=== PATIENT | male | born 1945 | race Caucasian/White ===

== ENCOUNTER 2018-10-29 17:35 | Inpatient (IN) | payer MEDICARE ==
--- NOTE | 2018-10-29 17:21 | US ---
EXAMINATION TYPE: US venous doppler duplex LE RT DATE OF EXAM: 10/29/2018 5:10 PM COMPARISON: NONE CLINICAL HISTORY: right leg pain and swelling. Patient fell last fall, then was in rehab facility x 3 .5 months and slid down wall 3 to 4 weeks ago while in rehab facility due to leg weakness SIDE PERFORMED: right TECHNIQUE: The lower extremity deep venous system is examined utilizing real time linear array sonog gurdeep with graded compression, Doppler sonography and color-flow sonography. VESSELS IMAGED: Common Femoral Vein Deep Femoral Vein Greater Saphenous Vein * Femoral Vein Popliteal Vein Small Saphenous Vein * Proximal Calf Veins (* superficial vessels) Right Leg: is positive for DVT in right Femoral Vein and Popliteal Vein ( non occluding here) and in DVT in 1 of 2 calf veins IMPRESSION: There is chronic deep venous thrombosis in the right leg in the femoral vein and calf vei ns.
[2018-10-29] MEDS ORDERED: HEPARIN SODIUM,PORCINE 10,000 UNIT/ML 1 ML VIAL IV ONE (18:50)
--- NOTE | 2018-10-29 19:31 | ED ---
Extremity Problem HPI - General Chief complaint: Extremity Problem,Nontraumatic Stated complaint: DVT Time Seen by Provider: 10/29/18 18:15 Source: patient Mode of arrival: wheelchair Limitations: no limitations - History of Present Illness Initial comments: 73-year-old male patient presents to the emergency department today after having a positive DVT on ultrasound as an outpatient. Patient states that he has been having swelling to the right lower extremity for the last 2 weeks. Patient denies any pain, numbness, or tingling to the leg. Patient has been in a rehab facility for the last 3 months after experiencing a fall with a cervical fracture and broken ribs. Patient states he also had a pacemaker placed and did take anti-coagulant medication for a short time in May. Patient denies any current use of antiplatelet or anticoagulant medications. Denies any discoloration to the lower extremity. Again denies any pain. States that he did have a blood clot in the right arm after an IV insertion, he states he did not have to take blood thinning medications after this episode. Patient denies any recent rash, fever, chills, shortness breath, chest pain, abdominal pain, nausea, vomiting, diarrhea, constipation, back pain, dizziness, weakness, hematuria, dysuria, urinary urgency, urinary frequency, headache, visual changes, or any other complaints. - Related Data Home Medications Medication Instructions Recorded Confirmed ALPRAZolam [Xanax] 0.25 mg PO HS 10/29/18 10/29/18 Albuterol Sulfate [Proventil Hfa] 2 puff INHALATION RT-Q6H PRN 10/29/18 10/29/18 Atorvastatin [Lipitor] 10 mg PO HS 10/29/18 10/29/18 Calcium Carbonate 500 mg PO HS 10/29/18 10/29/18 Doxazosin Mesylate [Cardura Xl] 4 mg PO DAILY 10/29/18 10/29/18 Furosemide [Lasix] 20 mg PO DAILY 10/29/18 10/29/18 Gabapentin 600 mg PO HS 10/29/18 10/29/18 HYDROcodone/APAP 10-325MG [[place] 1 tab PO QID PRN 10/29/18 10/29/18 10-325] Ibuprofen [Motrin] 600 mg PO Q8HR PRN 10/29/18 10/29/18 Insulin Glargine,Hum.rec.anlog 20 unit SQ HS 10/29/18 10/29/18 [Lantus Solostar] Lisinopril [Zestril] 10 mg PO DAILY 10/29/18 10/29/18 Melatonin 3 mg PO HS 10/29/18 10/29/18 Methocarbamol [Robaxin] 1,000 mg PO QID PRN 10/29/18 10/29/18 Metoprolol Tartrate [Lopressor] 100 mg PO BID 10/29/18 10/29/18 Multivitamins, Thera [Multivitamin 1 tab PO DAILY 10/29/18 10/29/18 (formulary)] Ranitidine HCl 150 mg PO BID 10/29/18 10/29/18 Allergies Allergy/AdvReac Type Severity Reaction Status Date / Time No Known Allergies Allergy Verified 10/29/18 19:41 Review of Systems ROS Statement: Those systems with pertinent positive or pertinent negative responses have been documented in the HPI. ROS Other: All systems not noted in ROS Statement are negative. Past Medical History Past Medical History: CVA/TIA, Diabetes Mellitus, Deep Vein Thrombosis (DVT), Hypertension, Osteoarthritis (OA) History of Any Multi-Drug Resistant Organisms: None Reported Past Surgical History: Back Surgery, Hernia Repair, Orthopedic Surgery, Pacemaker Additional Past Surgical History / Comment(s): neck surgery, hip replacement, cataract surgery Past Psychological History: No Psychological Hx Reported Smoking Status: Never smoker Past Alcohol Use History: None Reported Past Drug Use History: None Reported General Exam Limitations: no limitations General appearance: alert, in no apparent distress, other (Physical well- developed, well-nourished elderly male patient in no acute distress. Vital signs upon presentation are temperature 98.7F, pulse 71, respirations 16, blood pressure 151/76, pulse ox 98% on room air.) Eye exam: Present: normal appearance, PERRL, EOMI. Absent: scleral icterus, conjunctival injection, periorbital swelling ENT exam: Present: normal exam, normal oropharynx, mucous membranes moist Respiratory exam: Present: normal lung sounds bilaterally. Absent: respiratory distress, wheezes, rales, rhonchi, stridor Cardiovascular Exam: Present: regular rate, normal rhythm, normal heart sounds. Absent: systolic murmur, diastolic murmur, rubs, gallop, clicks GI/Abdominal exam: Present: soft, normal bowel sounds. Absent: distended, tenderness, guarding, rebound, rigid Extremities exam: Present: full ROM, normal capillary refill, other (Patient has generalized swelling to the right lower extremity. His skin is pink, warm, dry. Cap refills less than 3 seconds. Pedal pulses 2+ and equal bilaterally.) . Absent: normal inspection, tenderness, pedal edema, joint swelling, calf tenderness Neurological exam: Present: alert, oriented X3, CN II-XII intact Psychiatric exam: Present: normal affect, normal mood Skin exam: Present: warm, dry, intact, normal color. Absent: rash Course Vital Signs 10/29/18 10/29/18 10/29/18 17:45 20:00 21:58 Temperature 98.7 F 97.9 F Pulse Rate 71 73 66 Respiratory 16 18 18 Rate Blood Pressure 151/76 149/82 168/66 O2 Sat by Pulse 98 98 99 Oximetry 10/29/18 22:30 Temperature 97.8 F Pulse Rate 70 Respiratory 18 Rate Blood Pressure 165/65 O2 Sat by Pulse 96 Oximetry Medical Decision Making - Medical Decision Making 73-year-old male patient presents to emergency department after having a DVT found on ultrasound as an outpatient. Physical examination does reveal generalized right leg swelling. Patient states his swelling has a present for the last 2 weeks. He denies any pain to the leg. Did review the ultrasound report which did show DVT to the femoral vein, popliteal vein, and 1 calf vein. Given the DVT being in the proximal vein we will start heparin and admitted to the hospital for management of anticoagulant medication. Did discuss findings and results with the patient, he is agreeable to the plan. He'll be admitted to [facility] hospitalists who will cover for Dr. Landa. - Lab Data Result diagrams: 10/29/18 19:40 10/29/18 19:40 Lab Results 10/29/18 10/29/18 10/29/18 Range/Units 19:40 19:40 19:40 WBC 8.7 (3.8-10.6) k/uL RBC 3.38 L (4.30-5.90) m/uL Hgb 9.9 L (13.0-17.5) gm/dL Hct 32.7 L (39.0-53.0) % MCV 96.7 (80.0-100.0) fL MCH 29.4 (25.0-35.0) pg MCHC 30.4 L (31.0-37.0) g/dL RDW 16.3 H (11.5-15.5) % Plt Count 205 (150-450) k/uL Neutrophils % 66 % Lymphocytes % 17 % Monocytes % 11 % Eosinophils % 4 % Basophils % 0 % Neutrophils # 5.7 (1.3-7.7) k/uL Lymphocytes # 1.5 (1.0-4.8) k/uL Monocytes # 0.9 (0-1.0) k/uL Eosinophils # 0.3 (0-0.7) k/uL Basophils # 0.0 (0-0.2) k/uL Hypochromasia Slight Anisocytosis Slight PT 10.9 (9.0-12.0) sec INR 1.0 (<1.2) APTT 27.4 (22.0-30.0) sec Sodium 140 (137-145) mmol/L Potassium 5.2 H (3.5-5.1) mmol/L Chloride 104 (98-107) mmol/L Carbon Dioxide 27 (22-30) mmol/L Anion Gap 9 mmol/L BUN 28 H (9-20) mg/dL Creatinine 1.43 H (0.66-1.25) mg/dL Est GFR (CKD-EPI)AfAm 55 (>60 ml/min/1.73 sqM) Est GFR (CKD-EPI)NonAf 48 (>60 ml/min/1.73 sqM) Glucose 130 H (74-99) mg/dL Calcium 9.4 (8.4-10.2) mg/dL Total Bilirubin 0.6 (0.2-1.3) mg/dL AST 18 (17-59) U/L ALT 17 L (21-72) U/L Alkaline Phosphatase 68 (38-126) U/L Total Protein 8.0 (6.3-8.2) g/dL Albumin 4.1 (3.5-5.0) g/dL Stool Occult Blood (Negative) 10/29/18 Range/Units 20:40 WBC (3.8-10.6) k/uL RBC (4.30-5.90) m/uL Hgb (13.0-17.5) gm/dL Hct (39.0-53.0) % MCV (80.0-100.0) fL MCH (25.0-35.0) pg MCHC (31.0-37.0) g/dL RDW (11.5-15.5) % Plt Count (150-450) k/uL Neutrophils % % Lymphocytes % % Monocytes % % Eosinophils % % Basophils % % Neutrophils # (1.3-7.7) k/uL Lymphocytes # (1.0-4.8) k/uL Monocytes # (0-1.0) k/uL Eosinophils # (0-0.7) k/uL Basophils # (0-0.2) k/uL Hypochromasia Anisocytosis PT (9.0-12.0) sec INR (<1.2) APTT (22.0-30.0) sec Sodium (137-145) mmol/L Potassium (3.5-5.1) mmol/L Chloride (98-107) mmol/L Carbon Dioxide (22-30) mmol/L Anion Gap mmol/L BUN (9-20) mg/dL Creatinine (0.66-1.25) mg/dL Est GFR (CKD-EPI)AfAm (>60 ml/min/1.73 sqM) Est GFR (CKD-EPI)NonAf (>60 ml/min/1.73 sqM) Glucose (74-99) mg/dL Calcium (8.4-10.2) mg/dL Total Bilirubin (0.2-1.3) mg/dL AST (17-59) U/L ALT (21-72) U/L Alkaline Phosphatase (38-126) U/L Total Protein (6.3-8.2) g/dL Albumin (3.5-5.0) g/dL Stool Occult Blood Negative (Negative) - Radiology Data Radiology results: report reviewed Venous Doppler duplex of the right lower extremity was obtained. Report was reviewed in its entirety. Impression by Dr. Martinez shows chronic deep venous thrombosis in the right leg and the femoral vein and calf veins. Disposition Clinical Impression: Right leg DVT Disposition: ADMITTED IP TO THIS [facility] Condition: Serious Decision to Admit Reason: Admit from EC Decision Date: 10/29/18 Decision Time: 21:43
[2018-10-29] MEDS: SODIUM CHLORIDE 0.9% 500 ML 500 ML IV SCH (19:56)
[2018-10-29 19:59] LABS: Anisocytosis Slight; Basophils % (A) 0 %; Eosinophils # (A) 0.3 k/uL (0-0.7); Eosinophils % (A) 4 %; HCT 32.7 % (39.0-53.0); HGB 9.9 gm/dL (13.0-17.5); Hypochromasia Slight; Lymphocytes # (A) 1.5 k/uL (1.0-4.8); Lymphocytes % (A) 17 %; MCH 29.4 pg (25.0-35.0); MCHC 30.4 g/dL (31.0-37.0); MCV 96.7 fL (80.0-100.0); Mean Platelet Volume 8.1; Monocytes # (A) 0.9 k/uL (0-1.0); Monocytes % (A) 11 %; Neutrophils # (A) 5.7 k/uL (1.3-7.7); Neutrophils % (A) 66 %; Platelet Count 205 k/uL (150-450); RBC 3.38 m/uL (4.30-5.90); RDW 16.3 % (11.5-15.5); WBC 8.7 k/uL (3.8-10.6)
[2018-10-29] MEDS: HEPARIN SOD,PORK IN 0.45% NACL 25,000 UNIT in 0.45% NACL 1 250ML.BAG IV SCH (19:59)
[2018-10-29 20:07] LABS: Prothrombin Time 10.9 sec (9.0-12.0)
[2018-10-29 20:08] LABS: Partial Thromboplastin Time 27.4 sec (22.0-30.0)
[2018-10-29 20:16] LABS: Albumin 4.1 g/dL (3.5-5.0); Calcium 9.4 mg/dL (8.4-10.2); Potassium 5.2 mmol/L (3.5-5.1); Total Bilirubin 0.6 mg/dL (0.2-1.3)
[2018-10-29] MEDS ORDERED: NALOXONE 0.4 MG/ML 1 ML VIAL IV PRN (21:37)
[2018-10-29] MEDS ORDERED: IBUPROFEN 600 MG TAB PO PRN (21:38)
[2018-10-29] MEDS ORDERED: METHOCARBAMOL 500 MG TAB PO PRN (21:38)
[2018-10-30] MEDS: HYDROcodone/APAP 10-325MG 1 EACH TAB PO PRN ×4 (00:02→20:50)
[2018-10-30 00:17] VITALS: BMI 21.2
[2018-10-30 06:56] LABS: Glucose,Whole Blood 111 mg/dL (75-99)
[2018-10-30] MEDS: METOPROLOL TARTRATE 50 MG TAB PO SCH ×2 (07:01→20:49)
[2018-10-30] MEDS: LISINOPRIL 10 MG TAB PO SCH (07:02)
[2018-10-30] MEDS: FUROSEMIDE 20 MG TAB PO SCH (07:02)
[2018-10-30] MEDS: DOXAZOSIN 2 MG TAB PO SCH ×2 (07:02→20:49)
[2018-10-30] MEDS: FAMOTIDINE 20 MG TAB PO SCH ×2 (07:05→20:39)
[2018-10-30 08:49] LABS: Anisocytosis Slight; Basophils % (A) 0 %; Eosinophils # (A) 0.2 k/uL (0-0.7); Eosinophils % (A) 3 %; HCT 31.3 % (39.0-53.0); HGB 9.6 gm/dL (13.0-17.5); Hypochromasia Marked; Lymphocytes # (A) 1.1 k/uL (1.0-4.8); Lymphocytes % (A) 16 %; MCH 30.2 pg (25.0-35.0); MCHC 30.6 g/dL (31.0-37.0); MCV 98.7 fL (80.0-100.0); Macrocytosis Slight; Mean Platelet Volume 7.7; Monocytes # (A) 0.9 k/uL (0-1.0); Monocytes % (A) 13 %; Neutrophils # (A) 4.7 k/uL (1.3-7.7); Neutrophils % (A) 66 %; Platelet Count 182 k/uL (150-450); RBC 3.17 m/uL (4.30-5.90); RDW 16.2 % (11.5-15.5); WBC 7.1 k/uL (3.8-10.6)
[2018-10-30] MEDS: HEPARIN SODIUM,PORCINE 5,000 UNIT/ML 1 ML VIAL IV PRN (09:14)
[2018-10-30] MEDS: MULTIVITAMINS, THERA 1 EACH TAB PO SCH (11:33)
[2018-10-30 11:47] LABS: Glucose,Whole Blood 122 mg/dL (75-99)
--- NOTE | 2018-10-30 12:33 | P.HPIM ---
History of Present Illness H&P Date: 10/30/18 Chief Complaint: DVT Very pleasant 72-year-old gentleman was recently discharged from rehab was sent in after being diagnosed with a DVT as an outpatient patient said that he had a follow-up appointment with his doctor and during the examination it was noticed that his right lower extremity has been swollen. Patient says that his been swollen for about the past 2-3 weeks. He had an outpatient ultrasound done which showed DVT in the right lower extremity. Patient was thus sent into the ER for further evaluation and management Patient says that he was in the rehab facility for the last 3 months after expressing a fall. Spinal fracture and broken ribs he said that he'll heart stopped and he had a pacemaker placed as well. At this time the patient does not complain of any chest pain racing heart, no cough no shortness of breath, no abdominal pain, no diarrhea constipation, no tingling numbness in the extremities, no itch no rash. ER course patient's vitals were stable. Lab work was done and showed hemoglobin 9.9 WAC 8.7 platelets 205 sodium 140 potassium 5.2 BUN 28 creatinine 1.43. AST 16-year-old to 17 total bili 0.6. Ultrasound of the right lower exudate done showed chronic DVT in the right leg in the femoral vein and calf veins Patient was started on heparin drip and admitted to the hospitalist service for evaluation and management. Review of Systems All systems: negative Past Medical History Past Medical History: CVA/TIA, Diabetes Mellitus, Deep Vein Thrombosis (DVT), Hypertension, Osteoarthritis (OA) History of Any Multi-Drug Resistant Organisms: None Reported Past Surgical History: Back Surgery, Hernia Repair, Orthopedic Surgery, Pacemaker Additional Past Surgical History / Comment(s): neck surgery, hip replacement, cataract surgery Type of Cardiac Device: Permanent Pacemaker, Unknown Device Placement Date:: May 2018 Past Psychological History: No Psychological Hx Reported Smoking Status: Never smoker Past Alcohol Use History: None Reported Past Drug Use History: None Reported Medications and Allergies Home Medications Medication Instructions Recorded Confirmed Type ALPRAZolam [Xanax] 0.25 mg PO HS 10/29/18 10/29/18 History Albuterol Sulfate [Proventil Hfa] 2 puff INHALATION RT-Q6H PRN 10/29/18 History Atorvastatin [Lipitor] 10 mg PO HS 10/29/18 10/29/18 History Calcium Carbonate 500 mg PO HS 10/29/18 10/29/18 History Doxazosin Mesylate [Cardura Xl] 4 mg PO DAILY 10/29/18 10/29/18 History Furosemide [Lasix] 20 mg PO DAILY 10/29/18 10/29/18 History Gabapentin 600 mg PO HS 10/29/18 10/29/18 History HYDROcodone/APAP 10-325MG [[place] 1 tab PO QID PRN 10/29/18 10/29/18 History 10-325] Ibuprofen [Motrin] 600 mg PO Q8HR PRN 10/29/18 10/29/18 History Insulin Glargine,Hum.rec.anlog 20 unit SQ HS 10/29/18 10/29/18 History [Lantus Solostar] Lisinopril [Zestril] 10 mg PO DAILY 10/29/18 10/29/18 History Melatonin 3 mg PO HS 10/29/18 10/29/18 History Methocarbamol [Robaxin] 1,000 mg PO QID PRN 10/29/18 10/29/18 History Metoprolol Tartrate [Lopressor] 100 mg PO BID 10/29/18 10/29/18 History Multivitamins, Thera [Multivitamin 1 tab PO DAILY 10/29/18 10/29/18 History (formulary)] Ranitidine HCl 150 mg PO BID 10/29/18 10/29/18 History Allergies Allergy/AdvReac Type Severity Reaction Status Date / Time No Known Allergies Allergy Verified 10/29/18 19:41 Physical Exam Vitals: Vital Signs Temp Pulse Pulse Resp BP BP Pulse Ox 10/30/18 07:00 98.5 F 75 17 174/80 95 10/29/18 22:50 98.3 F 78 18 176/77 97 10/29/18 22:30 97.8 F 70 18 165/65 96 10/29/18 21:58 97.9 F 66 18 168/66 99 10/29/18 20:00 73 18 149/82 98 10/29/18 17:45 98.7 F 71 16 151/76 98 Intake and Output 10/29/18 10/30/18 10/30/18 22:59 06:59 14:59 Intake Total 188.298 68.227 Balance 188.298 68.227 Intake: Intake, IV Titration 188.298 68.227 Amount Heparin Sod,Pork in 0.45% 88.298 68.227 NaCl 25,000 unit In 0.45 % NaCl 1 250ml.bag @ 18 UNITS/KG/HR 14.28 mls/hr IV .[id number] SHEEBA Rx#: [id number] Sodium Chloride 0.9% 500 100 ml 500 ml @ 20 mls/hr IV .Q24H SHEEBA Rx#:[id number] Other: Voiding Method Urinal Urinal # Voids 3 1 Weight 79.379 kg On exam, alert and oriented x3. HEENT: Conjunctivae normal. eyes normal. NECK: No JVD. No thyroid enlargement. No LNs patient is having a c-collar on the neck CARDIOVASCULAR: S1, S2 . No murmur RESPIRATION: Breath sounds diminished in the bases. No rhonchi or crackles. No bronchial breathing. ABDOMEN: Soft, nontender . No guarding. no masses palpable. No ascites, No hepatosplenomegaly.Bowel sounds heard. LEGS: Right lower Ixodes solon more uncomfortable left NERVOUS SYSTEM: Cranial N 2-12 grossly normal. Moves all 4 limbs. No focal deficits. No sensory deficit. No signs of cerebellar dysfucntion. Skin: no ulcer no rash Joints: No active swelling. No inflammation. Lymphatic system. No LN neck axilla or groin. Results CBC & Chem 7: 10/30/18 08:10 10/29/18 19:40 Labs: Abnormal Lab Results - Last 24 Hours (Table) 10/29/18 10/29/18 10/30/18 Range/Units 19:40 19:40 01:16 RBC 3.38 L (4.30-5.90) m/uL Hgb 9.9 L (13.0-17.5) gm/dL Hct 32.7 L (39.0-53.0) % MCHC 30.4 L (31.0-37.0) g/dL RDW 16.3 H (11.5-15.5) % APTT 116.0 H* (22.0-30.0) sec Potassium 5.2 H (3.5-5.1) mmol/L BUN 28 H (9-20) mg/dL Creatinine 1.43 H (0.66-1.25) mg/dL Glucose 130 H (74-99) mg/dL POC Glucose (mg/dL) (75-99) mg/dL ALT 17 L (21-72) U/L 10/30/18 10/30/18 10/30/18 Range/Units 06:54 08:10 08:10 RBC 3.17 L (4.30-5.90) m/uL Hgb 9.6 L (13.0-17.5) gm/dL Hct 31.3 L (39.0-53.0) % MCHC 30.6 L (31.0-37.0) g/dL RDW 16.2 H (11.5-15.5) % APTT 44.2 H (22.0-30.0) sec Potassium (3.5-5.1) mmol/L BUN (9-20) mg/dL Creatinine (0.66-1.25) mg/dL Glucose (74-99) mg/dL POC Glucose (mg/dL) 111 H (75-99) mg/dL ALT (21-72) U/L 10/30/18 Range/Units 11:42 RBC (4.30-5.90) m/uL Hgb (13.0-17.5) gm/dL Hct (39.0-53.0) % MCHC (31.0-37.0) g/dL RDW (11.5-15.5) % APTT (22.0-30.0) sec Potassium (3.5-5.1) mmol/L BUN (9-20) mg/dL Creatinine (0.66-1.25) mg/dL Glucose (74-99) mg/dL POC Glucose (mg/dL) 122 H (75-99) mg/dL ALT (21-72) U/L Assessment and Plan Assessment: - Right lower extremity DVT - History of recent fall with cervical fracture and broken ribs - History of recent pacemaker insertion - Hypertension - Hyperlipidemia - Diabetes - History of CVA Plan - We'll admit the patient to [facility] with telemetry - We'll continue patient on heparin. - Patient had a pretty complicated and extensive course in the recent past with cervical fracture and surgery for the fracture, possible cardiac arrest and pacemaker insertion secondary to that. He now has DVT in the right lower extremity. He is on heparin right now. We'll continue heparin. We'll Consult hematology oncology for the expert recommendations and for duration of anticoagulation to go home on - We will continue the patient's home medications - GI prophylaxis with Pepcid - We'll order for lab work in the morning - Expected length of stay is more than 2 midnights - Patient is full code Time with Patient: Greater than 30
[2018-10-30] MEDS: HEPARIN SOD,PORK IN 0.45% NACL 25,000 UNIT in 0.45% NACL 1 250ML.BAG IV SCH (13:16)
[2018-10-30 13:44] LABS: Hemoglobin A1C 6.3 % (4.0-6.0)
[2018-10-30 16:59] LABS: Glucose,Whole Blood 118 mg/dL (75-99)
[2018-10-30 17:23] LABS: Glucose,Whole Blood 123 mg/dL (75-99)
[2018-10-30 19:53] LABS: Glucose,Whole Blood 134 mg/dL (75-99)
[2018-10-30] MEDS: CALCIUM CARBONATE 500 MG CHEWABLE PO SCH (20:38)
[2018-10-30] MEDS: SODIUM CHLORIDE 0.9% 500 ML 500 ML IV SCH (20:38)
[2018-10-30] MEDS: ALPRAZolam 0.25 MG TAB PO SCH (20:38)
[2018-10-30] MEDS: ATORVASTATIN 10 MG TAB PO SCH (20:38)
[2018-10-30] MEDS: GABAPENTIN 300 MG CAP PO SCH (20:39)
[2018-10-30] MEDS: MELATONIN 3 MG TABLET PO SCH (20:40)
[2018-10-30] MEDS: INSULIN DETEMIR 100 UNIT/ML 10 ML VIAL SQ SCH (20:40)
--- NOTE | 2018-10-30 21:39 | P.CONS ---
History of Present Illness - Reason for Consult Consult date: 10/30/18 Right lower extremity DVT - History of Present Illness The patient is a 73-year-old white male, who had suffered a fall down the stairs, with multiple major skeletal injuries. He had suffered multiple broken ribs, as well as spinal fractures. He required spinal surgery. During his hospitalization he suffered a cardiac arrest, and had a defibrillator placed. He was subsequently discharged to rehab where he had a prolonged stay. During this time, his mobility was very limited. He was ultimately able to start ablating with a walker, and was discharged from rehab on 10/29/18. He had presented to his PCPs office for medications. He was noted to have swelling and some redness of the right lower extremity. The patient stated that this had actually been present for about 2 weeks at least. He had a Doppler, that showed deep venous thrombosis involving the right femoral vein, extending into the popliteal vein and down into 11 of 2 deep calf veins. The clot was felt to be possibly chronic, with evidence of recanalization noted The patient was admitted and started on IV heparin. Consult was placed for further evaluation and recommendations He denied any prior history of DVT or PE. No family history of the same. There is no history of any chronic inflammatory condition or malignancy, chronic steroid use or hormonal supplementation. Review of Systems Constitutional: Reports chronic pain, Reports weakness, Reports weight loss Eyes: denies blurred vision, denies pain Ears: deny: decreased hearing, ear discharge, earache, tinnitus Ears, nose, mouth and throat: Denies headache, Denies sore throat Cardiovascular: Reports as per HPI, Reports decreased exercise tolerance, Reports rapid heart beat (Status post AICD) Respiratory: Denies cough Gastrointestinal: Denies abdominal pain, Denies diarrhea, Denies nausea, Denies vomiting Genitourinary: Reports as per HPI Musculoskeletal: Reports as per HPI, Reports fractures, Reports gait dysfunction , Reports muscle weakness Integumentary: Denies pruritus, Denies rash Neurological: Reports gait dysfunction, Reports weakness Psychiatric: Denies anxiety, Denies depression Endocrine: Reports fatigue, Reports weight change Hematologic/Lymphatic: Reports as per HPI, Reports lymphedema Past Medical History Past Medical History: CVA/TIA, Diabetes Mellitus, Deep Vein Thrombosis (DVT), Hypertension, Osteoarthritis (OA) History of Any Multi-Drug Resistant Organisms: None Reported Past Surgical History: Back Surgery, Hernia Repair, Orthopedic Surgery, Pacemaker Additional Past Surgical History / Comment(s): neck surgery, hip replacement, cataract surgery Type of Cardiac Device: Permanent Pacemaker, Unknown Device Placement Date:: May 2018 Past Psychological History: No Psychological Hx Reported Smoking Status: Never smoker Past Alcohol Use History: None Reported Past Drug Use History: None Reported Medications and Allergies Home Medications Medication Instructions Recorded Confirmed Type ALPRAZolam [Xanax] 0.25 mg PO HS 10/29/18 10/29/18 History Albuterol Sulfate [Proventil Hfa] 2 puff INHALATION RT-Q6H PRN 10/29/18 History Atorvastatin [Lipitor] 10 mg PO HS 10/29/18 10/29/18 History Calcium Carbonate 500 mg PO HS 10/29/18 10/29/18 History Doxazosin Mesylate [Cardura Xl] 4 mg PO DAILY 10/29/18 10/29/18 History Furosemide [Lasix] 20 mg PO DAILY 10/29/18 10/29/18 History Gabapentin 600 mg PO HS 10/29/18 10/29/18 History HYDROcodone/APAP 10-325MG [[place] 1 tab PO QID PRN 10/29/18 10/29/18 History 10-325] Ibuprofen [Motrin] 600 mg PO Q8HR PRN 10/29/18 10/29/18 History Insulin Glargine,Hum.rec.anlog 20 unit SQ HS 10/29/18 10/29/18 History [Lantus Solostar] Lisinopril [Zestril] 10 mg PO DAILY 10/29/18 10/29/18 History Melatonin 3 mg PO HS 10/29/18 10/29/18 History Methocarbamol [Robaxin] 1,000 mg PO QID PRN 10/29/18 10/29/18 History Metoprolol Tartrate [Lopressor] 100 mg PO BID 10/29/18 10/29/18 History Multivitamins, Thera [Multivitamin 1 tab PO DAILY 10/29/18 10/29/18 History (formulary)] Ranitidine HCl 150 mg PO BID 10/29/18 10/29/18 History Allergies Allergy/AdvReac Type Severity Reaction Status Date / Time No Known Allergies Allergy Verified 10/29/18 19:41 Physical Exam Vitals: Vital Signs Temp Pulse Pulse Resp BP BP Pulse Ox 10/30/18 15:00 98.2 F 65 18 153/72 94 L 10/30/18 07:00 98.5 F 75 17 174/80 95 10/29/18 22:50 98.3 F 78 18 176/77 97 10/29/18 22:30 97.8 F 70 18 165/65 96 10/29/18 21:58 97.9 F 66 18 168/66 99 Intake and Output 10/30/18 10/30/18 10/30/18 06:59 14:59 22:59 Intake Total 188.298 122.147 39.991 Balance 188.298 122.147 39.991 Intake: Intake, IV Titration 188.298 122.147 39.991 Amount Heparin Sod,Pork in 0.45% 88.298 122.147 39.991 NaCl 25,000 unit In 0.45 % NaCl 1 250ml.bag @ 18 UNITS/KG/HR 14.28 mls/hr IV .[id number] SHEEBA Rx#: [id number] Sodium Chloride 0.9% 500 100 ml 500 ml @ 20 mls/hr IV .Q24H SHEEBA Rx#:[id number] Other: Voiding Method Urinal Urinal # Voids 3 3 4 - Constitutional General appearance: no acute distress - EENT Eyes: EOMI, PERRLA ENT: hearing grossly normal, normal oropharynx - Neck Neck: other (In cervical collar. Decreased ROM) Thyroid: bilateral: normal size - Respiratory Respiratory: bilateral: CTA - Cardiovascular AICD left chest wall Rhythm: regular Heart sounds: normal: S1, S2 - Gastrointestinal General gastrointestinal: normal bowel sounds, soft - Integumentary Integumentary: calor (Right lower extremity, below-knee) - Neurologic Neurologic: CNII-XII intact - Musculoskeletal Right lower extremity 2+ edema mostly pretibial Musculoskeletal: generalized weakness, strength equal bilaterally - Psychiatric Psychiatric: A&O x's 3, appropriate affect Results CBC & Chem 7: 10/30/18 08:10 10/29/18 19:40 Labs: Abnormal Lab Results - Last 24 Hours (Table) 10/29/18 10/30/18 10/30/18 Range/Units 19:40 01:16 06:54 RBC (4.30-5.90) m/uL Hgb (13.0-17.5) gm/dL Hct (39.0-53.0) % MCHC (31.0-37.0) g/dL RDW (11.5-15.5) % APTT 116.0 H* (22.0-30.0) sec POC Glucose (mg/dL) 111 H (75-99) mg/dL Hemoglobin A1c 6.3 H (4.0-6.0) % 10/30/18 10/30/18 10/30/18 Range/Units 08:10 08:10 11:42 RBC 3.17 L (4.30-5.90) m/uL Hgb 9.6 L (13.0-17.5) gm/dL Hct 31.3 L (39.0-53.0) % MCHC 30.6 L (31.0-37.0) g/dL RDW 16.2 H (11.5-15.5) % APTT 44.2 H (22.0-30.0) sec POC Glucose (mg/dL) 122 H (75-99) mg/dL Hemoglobin A1c (4.0-6.0) % 10/30/18 10/30/18 10/30/18 Range/Units 15:18 16:47 17:14 RBC (4.30-5.90) m/uL Hgb (13.0-17.5) gm/dL Hct (39.0-53.0) % MCHC (31.0-37.0) g/dL RDW (11.5-15.5) % APTT 81.8 H (22.0-30.0) sec POC Glucose (mg/dL) 118 H 123 H (75-99) mg/dL Hemoglobin A1c (4.0-6.0) % 10/30/18 Range/Units 19:51 RBC (4.30-5.90) m/uL Hgb (13.0-17.5) gm/dL Hct (39.0-53.0) % MCHC (31.0-37.0) g/dL RDW (11.5-15.5) % APTT (22.0-30.0) sec POC Glucose (mg/dL) 134 H (75-99) mg/dL Hemoglobin A1c (4.0-6.0) % Venous US: report reviewed Assessment and Plan (1) Right leg DVT Narrative/Plan: This clearly appears to be a provoked clot, given the patient's history, of major injury, surgeries, hospitalization, and immobility. It is actually possible that the clot may have been at least some weeks old, given the ultrasound appearance, with symptoms started to develop and the patient increased weight-bearing. The patient has no prior personal history or family history. Therefore in this context, hypercoagulable testing is not indicated The patient can be switched over from IV heparin to oral anticoagulation at any time. He would be appropriate for any of the DO ACs, these are covered by his insurance. If coverage is an issue, then Coumadin will need to be utilized. As this is a lower extremity provoked clot, I would recommend anticoagulation for at least 3 months. The patient should be followed up at that time with repeat Doppler. If his mobility has increased in a satisfactory manner, and clot has resolved, then anticoagulation can be discontinued at that time. Check Doppler of left lower extremity for baseline. If 1 of the DO ACs is covered for him, then the patient can start that and stop IV heparin. He can then be discharged. Current Visit: Yes Status: Acute Code(s): I82.401 - ACUTE EMBOLISM AND THOMBOS UNSP DEEP VEINS OF R LOW EXTREM SNOMED Code(s): 958151197 Plan: Defer to the admitting service for management of his other medical problems
[2018-10-31 06:54] VITALS: RESP 16
[2018-10-31 07:00] LABS: Glucose,Whole Blood 104 mg/dL (75-99)
[2018-10-31] MEDS: METOPROLOL TARTRATE 50 MG TAB PO SCH ×2 (08:39→20:52)
[2018-10-31] MEDS: DOXAZOSIN 2 MG TAB PO SCH ×2 (08:39→20:52)
[2018-10-31] MEDS: MULTIVITAMINS, THERA 1 EACH TAB PO SCH (08:39)
[2018-10-31] MEDS: LISINOPRIL 10 MG TAB PO SCH (08:39)
[2018-10-31] MEDS: FUROSEMIDE 20 MG TAB PO SCH (08:39)
[2018-10-31] MEDS: FAMOTIDINE 20 MG TAB PO SCH ×2 (08:39→20:52)
[2018-10-31] MEDS: HEPARIN SOD,PORK IN 0.45% NACL 25,000 UNIT in 0.45% NACL 1 250ML.BAG IV SCH (08:39)
[2018-10-31] MEDS: HYDROcodone/APAP 10-325MG 1 EACH TAB PO PRN ×2 (08:46→17:56)
--- NOTE | 2018-10-31 08:59 | US ---
EXAMINATION TYPE: US venous doppler duplex LE LT DATE OF EXAM: 10/31/2018 8:11 AM COMPARISON: Right Leg venous ultrasound 2 days ago CLINICAL HISTORY: DVT. Right leg DVT, leg pain on left SIDE PERFORMED: Left TECHNIQUE: The lower extremity deep venous system is examined utilizing real time linear array sonog gurdeep with graded compression, doppler sonography and color-flow sonography. VESSELS IMAGED: External Iliac Vein (EIV) Common Femoral Vein Deep Femoral Vein Greater Saphenous Vein * Femoral Vein Popliteal Vein Small Saphenous Vein * Proximal Calf Veins (* superficial vessels) Left Leg: Negative for DVT Grayscale, color doppler, spectral doppler imaging performed of the deep veins of the left lower extr emity. There is normal flow, compressibility, vascular waveforms. IMPRESSION: No ultrasound evidence for acute DVT in the left lower extremity.
[2018-10-31 09:31] LABS: Anisocytosis Slight; Basophils % (A) 0 %; Eosinophils # (A) 0.1 k/uL (0-0.7); Eosinophils % (A) 2 %; HCT 29.5 % (39.0-53.0); Hypochromasia Slight; Lymphocytes # (A) 1.2 k/uL (1.0-4.8); Lymphocytes % (A) 21 %; MCH 29.2 pg (25.0-35.0); MCHC 30.4 g/dL (31.0-37.0); Mean Platelet Volume 8.2; Monocytes # (A) 0.7 k/uL (0-1.0); Monocytes % (A) 12 %; Neutrophils # (A) 3.6 k/uL (1.3-7.7); Neutrophils % (A) 62 %; Platelet Count 164 k/uL (150-450); RBC 3.08 m/uL (4.30-5.90); RDW 16.2 % (11.5-15.5); WBC 5.8 k/uL (3.8-10.6)
[2018-10-31 09:41] LABS: Calcium 8.9 mg/dL (8.4-10.2); Potassium 4.4 mmol/L (3.5-5.1)
[2018-10-31] MEDS: HEPARIN SODIUM,PORCINE 5,000 UNIT/ML 1 ML VIAL IV PRN (10:06)
[2018-10-31 11:44] LABS: Glucose,Whole Blood 116 mg/dL (75-99)
--- NOTE | 2018-10-31 14:32 | P.DS ---
Providers Date of admission: 10/29/18 21:44 Expected date of discharge: 10/31/18 Attending physician: Ken Ramos MD Consults: 10/30/18 12:35 Consult Physician Routine Consulting Provider: Pieter Medina Consult Reason/Comments: extensive dvt right lower ext Do you want consulting provider notified?: Yes Primary care physician: Karina [facility] Course: Very pleasant 72-year-old gentleman was recently discharged from rehab to home he's been sent in from the doctor's office after the ultrasound was done as an outpatient showed DVT. Patient was started on heparin. Dr. Matt was consulted who suggested to put him on oral anti-correlation for 3 months and then he would see the patient after 3 months for repeat DVT ultrasound. Throughout the course patient's statement and only stable with no issues. assistant center manager checked the coverage. The patient will have to be the same coverage for the ElIQUIS AND XARELTO Patient Condition at Discharge: Serious Plan - Discharge Summary Discharge Rx Participant: Yes New Discharge Prescriptions: New Apixaban [Eliquis] 10 mg PO BID 7 Days #14 tab Apixaban [Eliquis] 5 mg PO BID 90 Days #180 tab Continue Furosemide [Lasix] 20 mg PO DAILY Doxazosin Mesylate [Cardura Xl] 4 mg PO DAILY Calcium Carbonate 500 mg PO HS Gabapentin 600 mg PO HS Lisinopril [Zestril] 10 mg PO DAILY Ibuprofen [Motrin] 600 mg PO Q8HR PRN PRN Reason: Pain Atorvastatin [Lipitor] 10 mg PO HS Multivitamins, Thera [Multivitamin (formulary)] 1 tab PO DAILY Metoprolol Tartrate [Lopressor] 100 mg PO BID Methocarbamol [Robaxin] 1,000 mg PO QID PRN PRN Reason: Muscle Spasm Melatonin 3 mg PO HS Ranitidine HCl 150 mg PO BID Albuterol Sulfate [Proventil Hfa] 2 puff INHALATION RT-Q6H PRN PRN Reason: Shortness Of Breath ALPRAZolam [Xanax] 0.25 mg PO HS Insulin Glargine,Hum.rec.anlog [Lantus Solostar] 20 unit SQ HS HYDROcodone/APAP 10-325MG [[place] 10-325] 1 tab PO QID PRN PRN Reason: Pain Discharge Medication List ALPRAZolam [Xanax] 0.25 mg PO HS 10/29/18 [History] Albuterol Sulfate [Proventil Hfa] 2 puff INHALATION RT-Q6H PRN 10/29/18 [History ] Atorvastatin [Lipitor] 10 mg PO HS 10/29/18 [History] Calcium Carbonate 500 mg PO HS 10/29/18 [History] Doxazosin Mesylate [Cardura Xl] 4 mg PO DAILY 10/29/18 [History] Furosemide [Lasix] 20 mg PO DAILY 10/29/18 [History] Gabapentin 600 mg PO HS 10/29/18 [History] HYDROcodone/APAP 10-325MG [[place] 10-325] 1 tab PO QID PRN 10/29/18 [History] Ibuprofen [Motrin] 600 mg PO Q8HR PRN 10/29/18 [History] Insulin Glargine,Hum.rec.anlog [Lantus Solostar] 20 unit SQ HS 10/29/18 [History ] Lisinopril [Zestril] 10 mg PO DAILY 10/29/18 [History] Melatonin 3 mg PO HS 10/29/18 [History] Methocarbamol [Robaxin] 1,000 mg PO QID PRN 10/29/18 [History] Metoprolol Tartrate [Lopressor] 100 mg PO BID 10/29/18 [History] Multivitamins, Thera [Multivitamin (formulary)] 1 tab PO DAILY 10/29/18 [History ] Ranitidine HCl 150 mg PO BID 10/29/18 [History] Apixaban [Eliquis] 5 mg PO BID 90 Days #180 tab 10/31/18 [Rx] Apixaban [Eliquis] 10 mg PO BID 7 Days #14 tab 10/31/18 [Rx] Follow up Appointment(s)/Referral(s): Karina Camarillo DO [Primary Care Provider] - 1-2 days Pieter Medina MD [STAFF PHYSICIAN] - 01/20/19 (CALL TO MAKE APPOINTMENT) Activity/Diet/Wound Care/Special Instructions: If you experience any chest pain, racing heart, any bleeding from anywhere, any headache which is not getting better, any dark colored stools, please call 911 and come to the ER immediately. Please call Dr. Medina and make an appointment. He will need an ultrasound of her lower extremity to make sure the DVT is cured Discharge Disposition: HOME SELF-CARE
[2018-10-31] MEDS ORDERED: APIXABAN 5 MG TAB PO ONE (15:00)
[2018-10-31 16:50] LABS: Glucose,Whole Blood 142 mg/dL (75-99)
[2018-10-31] MEDS: MELATONIN 3 MG TABLET PO SCH (20:52)
[2018-10-31] MEDS: ATORVASTATIN 10 MG TAB PO SCH (20:52)
[2018-10-31] MEDS: ALPRAZolam 0.25 MG TAB PO SCH (20:52)
[2018-10-31] MEDS: GABAPENTIN 300 MG CAP PO SCH (20:52)
[2018-10-31] MEDS: CALCIUM CARBONATE 500 MG CHEWABLE PO SCH (20:52)
[2018-10-31] MEDS: INSULIN DETEMIR 100 UNIT/ML 10 ML VIAL SQ SCH (22:28)
[2018-10-31] MEDS: SODIUM CHLORIDE 0.9% 500 ML 500 ML IV SCH (22:28)
[2018-11-01 00:35] VITALS: TEMP 98
[2018-11-01] MEDS: HYDROcodone/APAP 10-325MG 1 EACH TAB PO PRN ×2 (05:10→11:22)
[2018-11-01] MEDS: APIXABAN 5 MG TAB PO SCH ×2 (05:11→16:55)
[2018-11-01 06:51] LABS: Glucose,Whole Blood 114 mg/dL (75-99)
[2018-11-01 08:59] LABS: Anisocytosis Slight; Basophils % (A) 0 %; Eosinophils # (A) 0.1 k/uL (0-0.7); Eosinophils % (A) 2 %; HCT 31.9 % (39.0-53.0); HGB 9.8 gm/dL (13.0-17.5); Hypochromasia Slight; Lymphocytes % (A) 18 %; MCH 29.5 pg (25.0-35.0); MCHC 30.7 g/dL (31.0-37.0); Mean Platelet Volume 7.7; Monocytes # (A) 0.8 k/uL (0-1.0); Monocytes % (A) 14 %; Neutrophils # (A) 3.6 k/uL (1.3-7.7); Neutrophils % (A) 64 %; Platelet Count 180 k/uL (150-450); RBC 3.32 m/uL (4.30-5.90); RDW 16.2 % (11.5-15.5); WBC 5.7 k/uL (3.8-10.6)
[2018-11-01] MEDS: METOPROLOL TARTRATE 50 MG TAB PO SCH (09:39)
[2018-11-01] MEDS: FUROSEMIDE 20 MG TAB PO SCH (09:39)
[2018-11-01] MEDS: LISINOPRIL 10 MG TAB PO SCH (09:39)
[2018-11-01] MEDS: FAMOTIDINE 20 MG TAB PO SCH (09:39)
[2018-11-01] MEDS: MULTIVITAMINS, THERA 1 EACH TAB PO SCH (09:39)
[2018-11-01] MEDS: DOXAZOSIN 2 MG TAB PO SCH (09:41)
[2018-11-01 11:55] LABS: Glucose,Whole Blood 137 mg/dL (75-99)
--- NOTE | 2018-11-01 12:37 | P.PN ---
Subjective Progress Note Date: 11/01/18 Patient stated back as he had no ride yesterday. He complains of no chest pain or racing heart, says that his swelling in his leg has gone down. Objective - Vital Signs Vital signs: Vital Signs Temp 98.0 F 11/01/18 07:53 Pulse 67 11/01/18 07:53 Resp 16 11/01/18 07:53 BP 156/73 11/01/18 07:53 Pulse Ox 94 L 11/01/18 07:53 Intake & Output 10/31/18 11/01/18 11/01/18 18:59 06:59 18:59 Intake Total 966.831 296 Output Total 1000 Balance -33.169 296 Intake: Intake, IV Titration 212.831 Amount Heparin Sod,Pork in 0.45% 212.831 NaCl 25,000 unit In 0.45 % NaCl 1 250ml.bag @ 18 UNITS/KG/HR 14.28 mls/hr IV .[id number] SHEEBA Rx#: [id number] Oral 754 296 Output: Urine 1000 Other: Voiding Method Urinal Urinal Urinal # Voids 3 2 - Exam On exam, alert and oriented x3. HEENT: Conjunctivae normal. eyes normal. NECK: No JVD. No thyroid enlargement. No LNs he has a c-collar on his neck CARDIOVASCULAR: S1, S2 muffled. No murmur RESPIRATION: Breath sounds diminished in the bases. No rhonchi or crackles. No bronchial breathing. ABDOMEN: Soft, nontender . No guarding. no masses palpable. No ascites, No hepatosplenomegaly.Bowel sounds heard. LEGS: Swelling in his right lower extremity better NERVOUS SYSTEM: Cranial N 2-12 grossly normal. Moves all 4 limbs. No focal deficits. No sensory deficit. No signs of cerebellar dysfucntion. Skin: no ulcer no rash Joints: No active swelling. No inflammation. Lymphatic system. No LN neck axilla or groin. - Labs CBC & Chem 7: 11/01/18 08:11 10/31/18 08:48 Labs: Abnormal Lab Results - Last 24 Hours (Table) 10/31/18 10/31/18 11/01/18 Range/Units 15:12 16:49 06:49 RBC (4.30-5.90) m/uL Hgb (13.0-17.5) gm/dL Hct (39.0-53.0) % MCHC (31.0-37.0) g/dL RDW (11.5-15.5) % APTT 99.7 H (22.0-30.0) sec POC Glucose (mg/dL) 142 H 114 H (75-99) mg/dL 11/01/18 11/01/18 Range/Units 08:11 11:55 RBC 3.32 L (4.30-5.90) m/uL Hgb 9.8 L (13.0-17.5) gm/dL Hct 31.9 L (39.0-53.0) % MCHC 30.7 L (31.0-37.0) g/dL RDW 16.2 H (11.5-15.5) % APTT (22.0-30.0) sec POC Glucose (mg/dL) 137 H (75-99) mg/dL Assessment and Plan Assessment: - Right lower extremity DVT - History of recent fall with cervical fracture and broken ribs - History of recent pacemaker insertion - Hypertension - Hyperlipidemia - Diabetes - History of CVA Plan - Patient to go home today - Continue ELIQUIS 10 mg twice a day for 7 days and then 5 mg twice a day for total of 3 months - Patient to follow-up with Dr. Medina in 3 months. At that time we'll probably get a repeat ultrasound DVT to ensure resolution of the DVT - follow-up with PCP in a week Time with Patient: Less than 30
[2018-11-01 14:56] VITALS: BP 148/76; PULSE 64
== END 2018-11-01 17:00 | disposition home or self-care (01) | DRG 301 ==
LOC: EC 17:35 → 4SSUR 21:44
PROVIDERS: ADMIT Internal Medicine; ATTEND Internal Medicine
DX: I82.511 Chronic embolism and thrombosis of right femoral vein (principal); I82.531 Chronic embolism and thrombosis of right popliteal vein; I82.4Z1 Acute embolism and thrombosis of unspecified deep veins of right distal lower extremity; E11.9 Type 2 diabetes mellitus without complications; E78.5 Hyperlipidemia, unspecified; I10 Essential (primary) hypertension; Z86.74 Personal history of sudden cardiac arrest; Z91.81 History of falling; Z79.899 Other long term (current) drug therapy; Z86.73 Personal history of transient ischemic attack (TIA), and cerebral infarction without residual deficits; Z95.0 Presence of cardiac pacemaker; Z96.649 Presence of unspecified artificial hip joint; Z98.49 Cataract extraction status, unspecified eye; Z79.4 Long term (current) use of insulin; G89.29 Other chronic pain; R53.1 Weakness; R63.4 Abnormal weight loss; Z68.21 Body mass index [BMI] 21.0-21.9, adult; M19.90 Unspecified osteoarthritis, unspecified site; S12.9XXD Fracture of neck, unspecified, subsequent encounter; S22.49XD Multiple fractures of ribs, unspecified side, subsequent encounter for fracture with routine healing; Z98.890 Other specified postprocedural states
CPT/HCPCS: 36415; 80048; 80053; 82272; 83036; 85025; 85610; 85730; 96365; 96366; 96376; 99284

== ENCOUNTER → 2019-01-08 | Outpatient (CLI) | payer MEDICARE, OTHER ==
--- NOTE | 2019-01-08 13:32 | NM ---
EXAMINATION TYPE: NM bone 3 phase DATE OF EXAM: 01/08/2019 COMPARISON: NONE HISTORY: Osteomyelitis. Left foot lateral ulceration. Triple phase bone scintigraphy was performed following the injection of 23.9 mCi Tc 99m MDP. Immedia te images and 5 hours post injection images acquired. FINDINGS: There is increased radiotracer uptake on blood flow, blood pool, and delayed images within the left l ower extremity. This is most focal at the left fifth metatarsal phalangeal joint and proximal fifth p halanx. Delayed uptake is also seen to a lesser degree within the base of the fifth digit and within the navicular on the left as well as within the midfoot on the right. Mid feet findings are likely on a degenerative basis. IMPRESSION: 1. Positive three-phase bone scan with osteomyelitis appearing to involve the fifth metatarsal phalan geal joint and proximal fifth phalanx. 2. Additional areas of abnormal radiotracer uptake in the base of the left fifth metatarsal and navic ular as well as right midfoot that are likely on a degenerative basis.
== END | disposition home or self-care (01) ==
LOC: RADNMMAIN 07:28
PROVIDERS: ATTEND Thoracic Surgery (Cardiothoracic Vascular Surgery)
DX: M86.8X8 Other osteomyelitis, other site (principal); E63.8 Other specified nutritional deficiencies
CPT/HCPCS: 78315; A9503

== ENCOUNTER → 2019-01-13 | Outpatient (CLI) | payer MEDICARE, OTHER | LOC: RADUSWWP 13:11 | PROVIDERS: ATTEND Thoracic Surgery (Cardiothoracic Vascular Surgery) | DX: M79.604 Pain in right leg (principal); M79.605 Pain in left leg | CPT/HCPCS: 93923 ==

== ENCOUNTER → 2019-01-13 | Outpatient (CLI) | payer MEDICARE, OTHER ==
--- NOTE | 2019-01-13 15:07 | US ---
EXAMINATION TYPE: US venous doppler duplex LE RT DATE OF EXAM: 01/13/2019 1:56 PM COMPARISON: CLINICAL HISTORY: M79.661. Hx of blood clot on 09/2018. Patient is on blood thinners. SIDE PERFORMED: Right TECHNIQUE: The lower extremity deep venous system is examined utilizing real time linear array sonog gurdeep with graded compression, doppler sonography and color-flow sonography. VESSELS IMAGED: External Iliac Vein (EIV) Common Femoral Vein Deep Femoral Vein Greater Saphenous Vein * Femoral Vein Popliteal Vein Small Saphenous Vein * Proximal Calf Veins (* superficial vessels) Right Leg: Appears positive for DVT from proximal femoral vein to popliteal vein. Internal echoes v isualized. Non compressible. No flow visualized in femoral vein. Flow visualized in popliteal vein . IMPRESSION: 1. Right lower extremity ultrasound positive for deep venous thrombosis extending from the popliteal vein into the proximal femoral vein
== END ==
LOC: RADUSWWP 13:08
PROVIDERS: ATTEND Internal Medicine Hematology & Oncology
DX: I82.411 Acute embolism and thrombosis of right femoral vein (principal); I82.431 Acute embolism and thrombosis of right popliteal vein

== ENCOUNTER → 2019-04-14 | Outpatient (CLI) | payer MEDICARE, OTHER ==
[2019-04-14 10:56] VITALS: BP 129/62; PULSE 66; RESP 18
== END | disposition home or self-care (01) ==
LOC: PNWHC3 10:30
PROVIDERS: ATTEND Specialist
DX: M96.1 Postlaminectomy syndrome, not elsewhere classified (principal); M47.812 Spondylosis without myelopathy or radiculopathy, cervical region; M46.92 Unspecified inflammatory spondylopathy, cervical region; M19.011 Primary osteoarthritis, right shoulder; Z79.899 Other long term (current) drug therapy; Z79.01 Long term (current) use of anticoagulants; Z79.891 Long term (current) use of opiate analgesic; Z79.2 Long term (current) use of antibiotics
CPT/HCPCS: 99211

== ENCOUNTER → 2019-05-07 | Outpatient (CLI) | payer MEDICARE, OTHER ==
--- NOTE | 2019-05-10 10:15 | US ---
EXAMINATION TYPE: US venous doppler duplex LE RT DATE OF EXAM: 05/07/2019 1:37 PM COMPARISON: NONE CLINICAL HISTORY: I82.491 DVT. HX of DVT on blood thinners. SIDE PERFORMED: Right TECHNIQUE: The lower extremity deep venous system is examined utilizing real time linear array sonog gurdeep with graded compression, doppler sonography and color-flow sonography. VESSELS IMAGED: External Iliac Vein (EIV) Common Femoral Vein Deep Femoral Vein Greater Saphenous Vein * Femoral Vein Popliteal Vein Small Saphenous Vein * Proximal Calf Veins (* superficial vessels) Right Leg: Hx of chronic DVT flow visualized in Femoral Vein Thrombus still noted in Proximal Poplit eal Vein. IMPRESSION: Chronic DVT as noted.
== END | disposition home or self-care (01) ==
LOC: RADUSWWP 13:05
PROVIDERS: ATTEND Internal Medicine Hematology & Oncology
DX: I82.531 Chronic embolism and thrombosis of right popliteal vein (principal)

== ENCOUNTER → 2019-06-02 | Outpatient (CLI) | payer MEDICARE, OTHER ==
--- NOTE | 2019-06-02 19:23 | CT ---
EXAMINATION TYPE: CT cervical spine wo con DATE OF EXAM: 06/02/2019 COMPARISON: None at this location. HISTORY: Cervicalgia CT DLP: 434.5 mGycm CONTRAST: None CT of the cervical spine is performed in the axial plane at 2 mm thick sections. Reconstructed image s in the coronal, and sagittal plane are reviewed on the computer. There is prior repair of the C2 fracture with a screw extending through the base of C2 into the dens. The fracture line remains patent with nonunion. Correlate with the timing of the repair. There is a suggestion this is a old nonunion. There is an anterior cervical fusion of C3-C6. The prevertebral space is normal. Degenerative disc changes are throughout the cervical spine. Uncovertebral joint hypertrophy is prese nt contributing to some foraminal narrowing most notably C5-6 bilaterally facet degenerative changes are noted throughout the cervical spine. No AP spinal canal stenosis is evident. Vertebral body heights appear preserved. There is a scoliosis present. IMPRESSIONS: 1. Nonunion of a C2 odontoid fracture. Fixation screw from the body of C2 extends into the dens.
== END | disposition home or self-care (01) ==
LOC: RADCTMAIN 11:06
PROVIDERS: ATTEND Psychiatry & Neurology Neurology
DX: S12.190A Other displaced fracture of second cervical vertebra, initial encounter for closed fracture (principal); Z98.1 Arthrodesis status
CPT/HCPCS: 72125

== ENCOUNTER → 2019-07-01 | Outpatient (CLI) | payer MEDICARE, OTHER ==
[2019-07-01 11:35] LABS: Basophils # (A) 0.2 k/uL (0-0.2); Basophils % (A) 3 %; Eosinophils # (A) 0.2 k/uL (0-0.7); Eosinophils % (A) 3 %; HCT 41.3 % (39.0-53.0); HGB 12.4 gm/dL (13.0-17.5); Hypochromasia Slight; Lymphocytes # (A) 1.5 k/uL (1.0-4.8); Lymphocytes % (A) 21 %; MCH 31.5 pg (25.0-35.0); MCHC 30.1 g/dL (31.0-37.0); MCV 104.7 fL (80.0-100.0); Macrocytosis Slight; Mean Platelet Volume 7.7; Monocytes # (A) 1.4 k/uL (0-1.0); Monocytes % (A) 20 %; Neutrophils # (A) 3.7 k/uL (1.3-7.7); Neutrophils % (A) 51 %; Platelet Count 214 k/uL (150-450); RBC 3.94 m/uL (4.30-5.90); RDW 13.6 % (11.5-15.5); WBC 7.3 k/uL (3.8-10.6)
[2019-07-01 11:55] LABS: Potassium 4.7 mmol/L (3.5-5.1)
== END | disposition home or self-care (01) ==
LOC: LABPAT 10:47
PROVIDERS: ATTEND Surgery
DX: Z01.812 Encounter for preprocedural laboratory examination (principal); L97.429 Non-pressure chronic ulcer of left heel and midfoot with unspecified severity
CPT/HCPCS: 36415; 80051; 82565; 84520; 85025

== ENCOUNTER 2019-07-06 07:26 | Day surgery (SDC) | payer MEDICARE, OTHER ==
[2019-06-30 15:28] VITALS: BMI 21.4
[~2019-07-06 07:26] MED LIST: ALPRAZolam 0.25 MG TAB PO PRN; ASPIRIN 325 MG TAB PO STA; SODIUM CHLORIDE 0.9% 1,000 ML in EMPTY BAG 1 BAG IV ONE
[2019-07-06 07:54] VITALS: RESP 16; TEMP 97.8
[2019-07-06] MEDS ORDERED: SODIUM CHLORIDE 0.9% 1,000 ML IV ONE (07:56)
[2019-07-06] MEDS ORDERED: fentaNYL (PF) 50 MCG/ML 2 ML AMP IV ONE (09:09)
[2019-07-06] MEDS ORDERED: MIDAZOLAM PF (FBP) 2 MG/2 ML VIAL IV ONE (09:09)
[2019-07-06] MEDS ORDERED: LIDOCAINE 1% INJ 10MG/ML (20 ML MDV) SQ ONE (09:11)
[2019-07-06] MEDS ORDERED: IOPAMIDOL-370 100ML BTL INJ ONE ×2 (09:27→09:29)
--- NOTE | 2019-07-06 10:09 | P.OP ---
Indications for Procedure: 74-year-old gentleman with history of left heel wound for 5 months presented to the office for possible vascular intervention. He underwent arterial Doppler which demonstrated non-compressible calcified disease bilaterally with unable to obtain ABIs. Due to his wounds and calcification of his arterial vessels it was determined that he needed an angiogram to see if there is any significant disease affecting blood flow to the wounds. He presents today for aortogram with runoff. Description of Procedure: Preoperative diagnosis: Left nonhealing heel wound Zwolle classification 6 Postop diagnosis: Left nonhealing heel wound Zwolle classification 6, 30% stenosis of the tibioperoneal trunk and anterior tibial artery on the left with occlusion of the left anterior tibial artery. Poor flow to the right distal tibioperoneal vessels. Procedure: 1. Aortogram with bilateral lower extremity runoffs via right common femoral artery access under ultrasound guidance, 2. Selective catheterization of the left popliteal artery with selective angiogram of the tibioperoneal vessels. Surgeon: Nick Anesthesia: Moderate sedation times 26 minutes Estimated blood loss: Less than 5 mL Complications: None Condition: Stable Findings: Aorta: Patent without any significant atherosclerotic disease or stenosis. Iliacs: Common iliac, internal and external iliac arteries were patent bilaterally without significant stenosis. Femorals: Bilateral common femoral, profundus, superficial femoral arteries were patent with minimal atherosclerotic disease. Popliteal: Right popliteal artery was patent with minimal atherosclerotic disease and no significant stenosis. Mild stenosis of the left popliteal artery Tibials: Left tibioperoneal trunk with severe atherosclerotic disease, stenosis approximately 40%. Anterior tibial artery is occluded just after the takeoff on the left. Posterior tibial artery is patent throughout its extending into the heel with good blush at the wound. Right tibioperoneal trunk and tibial arteries were difficult to visualize due to poor flow likely due to occlusive disease of all 3 vessels. It appeared the anterior tibial, peroneal and posterior tibial arteries were occluded just after takeoff below the knee. Operative narrative: After written informed consent was obtained the patient all risks benefits competitions were described the patient is brought to the [facility] and laid in a supine position. The area of the groin was prepped and draped in the usual sterile fashion. Local anesthesia with moderate sedation was performed with continuous pulse ox monitoring and EKG monitoring. Utilizing ultrasound the right common femoral artery was visualized and shown to be patent without any significant plaque. Utilizing a multipurpose needle under ultrasound guidance the artery was accessed. Guidewire was placed followed by a 5-Frisian sheath. 035 Glidewire was then placed into the aorta followed by pigtail catheter. Angiogram was then obtained of the aorta. Catheter was then placed at the bifurcation and lower extremity runoffs were obtained. Utilizing the 035 wire and pigtail catheter the left common iliac was accessed and the wire was placed down the superficial femoral artery followed by an angled glide catheter. The angled glide catheter was then placed at the popliteal artery and selective angiogram was obtained of the distal tibial vessels. Once completed all guidewires, catheters and sheaths were removed and pressure was placed for hemostasis. Patient tolerated procedure well was sent to PACU for recovery Plan - Discharge Summary Discharge Rx Participant: No New Discharge Prescriptions: No Action Atorvastatin [Lipitor] 10 mg PO QAM Metoprolol Tartrate [Lopressor] 100 mg PO BID Apixaban [Eliquis] 5 mg PO BID 90 Days #180 tab HYDROcodone/APAP 10-325MG [[place] 10-325] 1 tab PO Q6HR PRN PRN Reason: Pain Gabapentin [Neurontin] 600 mg PO HS Discharge Medication List Atorvastatin [Lipitor] 10 mg PO QAM 10/29/18 [History] Metoprolol Tartrate [Lopressor] 100 mg PO BID 10/29/18 [History] Apixaban [Eliquis] 5 mg PO BID 90 Days #180 tab 10/31/18 [Rx] Gabapentin [Neurontin] 600 mg PO HS 12/29/18 [History] HYDROcodone/APAP 10-325MG [[place] 10-325] 1 tab PO Q6HR PRN 12/29/18 [History] Follow up Appointment(s)/Referral(s): West Romero DO [STAFF PHYSICIAN] - 2 Weeks Activity/Diet/Wound Care/Special Instructions: no heavy lifting greater than 15lbs x 1 week. Discharge Disposition: HOME SELF-CARE
--- NOTE | 2019-07-06 14:31 | IR ---
Fluoroscopy HISTORY: Pain 2.1 minutes fluoroscopy time supplied to the referring clinician. 306 intraoperative C-arm images do cument the procedure. See dictated report from vascular surgery.
[2019-07-06] MEDS ORDERED: HYDROcodone/APAP 10-325MG 1 EACH TAB PO PRN (14:40)
[2019-07-06 17:23] VITALS: BP 108/58; PULSE 65
== END 2019-07-06 15:57 | disposition home or self-care (01) ==
LOC: CATHCVL 07:26
PROVIDERS: ATTEND Surgery
DX: I70.293 Other atherosclerosis of native arteries of extremities, bilateral legs (principal); E11.51 Type 2 diabetes mellitus with diabetic peripheral angiopathy without gangrene; E11.621 Type 2 diabetes mellitus with foot ulcer; L97.412 Non-pressure chronic ulcer of right heel and midfoot with fat layer exposed; Z95.0 Presence of cardiac pacemaker; Z79.01 Long term (current) use of anticoagulants; Z79.899 Other long term (current) drug therapy
CPT/HCPCS: 36247; 75625; 75716; 76937; C1769 ×3; C1894; J2001; J3010; Q9967; J2250

== ENCOUNTER → 2019-11-12 | Outpatient (CLI) | payer MEDICARE, OTHER ==
--- NOTE | 2019-11-12 11:44 | US ---
EXAMINATION TYPE: US venous doppler duplex LE RT DATE OF EXAM: 11/12/2019 10:34 AM COMPARISON: 05/07/2019 CLINICAL HISTORY: rt lower ext, DVT I82.491. h/o right leg DVT, patient still on thinners SIDE PERFORMED: Right TECHNIQUE: The lower extremity deep venous system is examined utilizing real time linear array sonog gurdeep with graded compression, doppler sonography and color-flow sonography. VESSELS IMAGED: External Iliac Vein (EIV) Common Femoral Vein Deep Femoral Vein Greater Saphenous Vein * Femoral Vein Popliteal Vein Small Saphenous Vein * Proximal Calf Veins (* superficial vessels) Right Leg: No acute process seen on today's exam. Could not get full color fill and full compression along venous system due to chronic process. Collateral vein along femoral vein was patent, while I c ould not get flow within skull valley vein at mid level due to chronic process. 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 This was seen on the prior of 9.
== END | disposition home or self-care (01) ==
LOC: RADUSWWP 10:03
PROVIDERS: ATTEND Internal Medicine Hematology & Oncology
DX: I82.531 Chronic embolism and thrombosis of right popliteal vein (principal); I82.511 Chronic embolism and thrombosis of right femoral vein

== ENCOUNTER → 2019-12-16 | Outpatient (CLI) | payer MEDICARE, OTHER ==
--- NOTE | 2019-12-16 09:05 | CT ---
EXAMINATION TYPE: CT cervical spine wo con DATE OF EXAM: 12/16/2019 COMPARISON: CT cervical spine June 02, 2019 HISTORY: Neck pain with multiple prior surgeries CT DLP: 451.1 mGycm. Automated Exposure Control for Dose Reduction was Utilized. TECHNIQUE: CT scan of the cervical spine is obtained without contrast, axial images are obtained, sa gittal and coronal reformatted images are also reviewed. FINDINGS: Cervical spine is visualized in its entirety from C1 through upper thoracic levels, and red emonstrates dextroconvex scoliosis centered mid cervical spine. There is redemonstration of anterior fusion plate and artificial disc material through the C3-C6 levels with stable and satisfactory align ment along with bony arthrodesis. There is slight grade 1 anterolisthesis C6 on C7 and C7 on T1. Ther e is redemonstration of an oblique screw through nonhealed transverse type II dens fracture extending posteriorly and superiorly with stable alignment. No new healing is present. Some persistent bony pr otrusion posterior mid C2 level sagittal image 28 effaces anterior thecal sac similar to prior study. Prevertebral soft tissue remains within normal limits. C1-C2 articulation redemonstrates left latera l step-off of C1 on C2. Old healed spinous process C7 and T1 hangman type fractures are redemonstrate d. Review of axial images redemonstrate multilevel uncovertebral facet degenerative changes contributing to multilevel bilateral neural foraminal narrowing. Heterogeneous normal size multinodular thyroid r edemonstrated. Lung apices remain clear. There is partial visualization of pacemaker leads. There is moderate calcified plaque bilateral carotid bulb level redemonstrated. IMPRESSION: As above. Overall no significant change or progression from prior CT
== END | disposition home or self-care (01) ==
LOC: RADCTMAIN 07:36
PROVIDERS: ATTEND Neurological Surgery
DX: M50.21 Other cervical disc displacement, high cervical region (principal); M43.12 Spondylolisthesis, cervical region; M43.13 Spondylolisthesis, cervicothoracic region; M47.812 Spondylosis without myelopathy or radiculopathy, cervical region; M41.82 Other forms of scoliosis, cervical region; Z98.1 Arthrodesis status; Z98.890 Other specified postprocedural states; Z95.0 Presence of cardiac pacemaker
CPT/HCPCS: 72125

== ENCOUNTER → 2020-03-17 | Outpatient (CLI) | payer MEDICARE ==
--- NOTE | 2020-03-17 07:57 | US ---
EXAMINATION TYPE: US kidneys/renal and bladder DATE OF EXAM: 03/17/2020 COMPARISON: NONE CLINICAL HISTORY: R94.4 ABN KIDNEY FUNCTIONS. Abn kidney test EXAM MEASUREMENTS: Right Kidney: 8.9 x 3.8 x 3.5 cm Left Kidney: 9.0 x 4.7 x 3.6 cm Right Kidney: No hydronephrosis or masses seen Left Kidney: No hydronephrosis or masses seen Bladder: Echogenic areas seen. These are somewhat ill-defined. These are somewhat large measuring 1 t o 2 cm. Urinary bladder may be incompletely distended. Bilateral Jets seen: No IMPRESSION: 1. Normal kidneys. 2. Echogenic foci within the urinary bladder. Additional workup is recommended.
== END | disposition home or self-care (01) ==
LOC: RADUSWWP 07:22
PROVIDERS: ATTEND Family Medicine
DX: R93.41 Abnormal radiologic findings on diagnostic imaging of renal pelvis, ureter, or bladder (principal)
CPT/HCPCS: 76770

== ENCOUNTER 2020-05-07 20:28 | Inpatient (IN) | payer MEDICARE ==
[2020-05-07] MEDS ORDERED: ACETAMINOPHEN TAB 500 MG TAB PO STA (21:52)
[2020-05-07 22:21] LABS: Albumin 3.8 g/dL (3.5-5.0); Calcium 8.7 mg/dL (8.4-10.2); Potassium 4.9 mmol/L (3.5-5.1); Total Bilirubin 0.8 mg/dL (0.2-1.3); Total Protein 7.7 g/dL (6.3-8.2)
--- NOTE | 2020-05-07 22:33 | XR ---
EXAMINATION TYPE: XR chest 2V DATE OF EXAM: 05/07/2020 COMPARISON: NONE HISTORY: Weakness TECHNIQUE: 2 views FINDINGS: Heart is normal. Lungs are clear of infiltrate. There is some mild linear density right jovanny g base. There is slight elevation of the right diaphragm. There is left axillary pacemaker. There are no hilar masses. Bony thorax appears intact. IMPRESSION: Mild elevation of the right diaphragm and mild atelectasis right lung base. Normal heart. No heart failure.
--- NOTE | 2020-05-07 23:15 | CT ---
EXAMINATION TYPE: CT brain wo con DATE OF EXAM: 05/07/2020 COMPARISON: None HISTORY: weakness CT DLP: 1232.4 mGycm Automated exposure control for dose reduction was used. There is cerebral cortical atrophy. There is some mild hypodensity in the periventricular white matte r. There is no mass effect nor midline shift. There is no sign of intracranial hemorrhage. The calvar ium is intact. The skull base is intact. There is 8 mm lacunar infarct anterior left internal capsule . IMPRESSION: Cerebral atrophy and chronic small vessel ischemia. No acute intracranial abnormality.
[2020-05-07 23:29] LABS: HCT 35.7 % (39.0-53.0); Hypochromasia Slight; MCH 28.8 pg (25.0-35.0); MCHC 30.8 g/dL (31.0-37.0); MCV 93.5 fL (80.0-100.0); Mean Platelet Volume 8.8; Platelet Count 204 k/uL (150-450); RBC 3.82 m/uL (4.30-5.90); RDW 14.4 % (11.5-15.5); WBC 23.5 k/uL (3.8-10.6)
[2020-05-07 23:35] LABS: INR 1.3 (<1.2)
[2020-05-07 23:46] LABS: Band Neutrophils % 13 %; Lymphocytes # (M) 1.18 k/uL (1.0-4.8); Monocytes # (M) 1.65 k/uL (0-1.0); Neutrophils % (M) 75 %; Nucleated Red Blood Cells 0 /100 WBC (0-0); Total Cells Counted 100
[2020-05-08 00:31] LABS: Appearance,Urine Cloudy (Clear); Bacteria,Urine Rare /hpf; Bilirubin,Urine Negative (Negative); Blood,Urine Small (Negative); Color,Urine Yellow; Glucose,Urine (UA) Trace (Negative); Granular Casts,Urine 3 /lpf (0); Ketones,Urine Negative (Negative); Leukocyte Esterase,Urine Negative (Negative); Mucus,Urine Rare /hpf; Nitrite,Urine Negative (Negative); PH, Urine 5.5 (5.0-8.0); Protein,Urine 1+ (Negative); RBC,Urine 4 /hpf (0-5); Specific Gravity,Urine 1.015 (1.001-1.035); Urobilinogen,Urine <2.0 mg/dL (<2.0); WBC,Urine 2 /hpf (0-5)
--- NOTE | 2020-05-08 00:31 | ED ---
General Adult HPI - General Chief complaint: Weakness Stated complaint: weakness Time Seen by Provider: 05/07/20 21:10 Source: EMS, RN notes reviewed, old records reviewed Mode of arrival: EMS - History of Present Illness Initial comments: 74-year-old male patient past medical history of prior stroke with residual right-sided weakness type 2 diabetes AICD presents to ED for a mechanical fall which he had earlier today. Patient reports that he got a call from his daughter he had his phone on his walker. He went to grab it and slipped out from underneath him and he fell forward. Patient states that he laid on the ground about 10 minutes until he was able to get helped up from there he was seen by emergency medical services and was not brought to the hospital. Denies hitting his head or his neck. Denies any injury from the fall. Patient was seen by his daughter shortly later and she felt as if he was a little bit confused from normal. He requested that he come to the hospital. Patient reports been coughing a little bit recently but denies any other complaints. Systemic: Pt denies fatigue, rash. Pt denies weakness, night sweats, weight loss. Neuro: Pt denies headache, visual disturbances, syncope or pre-syncope. HEENT: Pt denies ocular discharge or irritation, otalgia, rhinorrhea, pharyngitis or notable lymphadenopathy. Cardiopulmonary: Pt denies chest pain, SOB, heart palpitations, dyspnea on exertion. Abdominal/GI: Pt denies abdominal pain, n/v/d. : Pt denies dysuria, burning w/ urination, frequency/urgency. Denies new onset urinary or bowel incontinence. MSK: Pt denies myalgia, loss of strength or function in extremities. Neuro: Pt denies new onset weakness, paresthesias. - Related Data Home Medications Medication Instructions Recorded Confirmed Atorvastatin [Lipitor] 10 mg PO QAM 10/29/18 08/18/19 Metoprolol Tartrate [Lopressor] 100 mg PO BID 10/29/18 08/18/19 Gabapentin [Neurontin] 600 mg PO HS 12/29/18 08/18/19 HYDROcodone/APAP 10-325MG [[place] 1 tab PO Q6HR PRN 12/29/18 08/18/19 10-325] Previous Rx's Medication Instructions Recorded Apixaban [Eliquis] 5 mg PO BID 90 Days #180 tab 10/31/18 Allergies Allergy/AdvReac Type Severity Reaction Status Date / Time No Known Allergies Allergy Verified 08/18/19 12:08 Review of Systems ROS Statement: Those systems with pertinent positive or pertinent negative responses have been documented in the HPI. ROS Other: All systems not noted in ROS Statement are negative. Past Medical History Past Medical History: CVA/TIA, Diabetes Mellitus, Deep Vein Thrombosis (DVT), Hypertension, Osteoarthritis (OA) Additional Past Medical History / Comment(s): current wound left heel. has dressing change 3x week, wound center patient, states has DVT x3 in rt leg, past hx of diabetes and HTN, no longer requires rx since weight loss. states TIA in 2010 residual muscle weakness in rt leg, wears brace rt leg History of Any Multi-Drug Resistant Organisms: MRSA Date of last positivie culture/infection: 02/08/19 MDRO Source:: left foot Past Surgical History: Back Surgery, Hernia Repair, Orthopedic Surgery, Pacemaker Additional Past Surgical History / Comment(s): cervical fusion, right hip replacement, cataract surgery Past Anesthesia/Blood Transfusion Reactions: No Reported Reaction Type of Cardiac Device: AICD, Unknown Device Placement Date:: May 2018 Past Psychological History: No Psychological Hx Reported Smoking Status: Never smoker Past Alcohol Use History: None Reported Past Drug Use History: None Reported - Past Family History Mother Family Medical History: Cancer Father Family Medical History: Cancer, Coronary Artery Disease (CAD) General Exam - General Exam Comments Initial Comments: Constitutional: NAD, AOX3, Pt has pleasant affect. HEENT: NC/AT, trachea midline, neck supple, no lymphadenopathy. External ears appear normal, without discharge. Mucous membranes moist. Eyes PERRLA, EOM intact. There is no scleral icterus. No pallor noted. Cardiopulmonary: RRR, no murmurs, rubs or gallops, no JVD noted. Lungs CTAB in anterior and posterior baxter. No peripheral edema. Abdominal exam: Abdomen soft and non-distended. Abdomen non-tender to palpation in all 4 quadrants. Bowel sounds active in LLQ. No hepatosplenomegaly. No ecchymosis Neuro: CN II-XII intact. No nuchal rigidity. No raccon eyes, no alford sign, no hemotympanum. No cervical spinal tenderness. NIH 0. MSK: ROM intact of upper and lower extremities. . Course Vital Signs 08/09/20 08/09/20 08/09/20 20:30 20:32 23:45 Temperature 100.7 F H 97.4 F L Pulse Rate 100 81 Respiratory 17 18 16 Rate Blood Pressure 150/78 111/58 O2 Sat by Pulse 94 L 96 Oximetry Medical Decision Making - Medical Decision Making 74-year-old male patient presents to ED for evaluation of fall and fever. Patient did have a fever and came in. Physical exam didn't display acute pathology. Neurologic exam is intact. Laboratory investigations reveal a leuk ocytosis. Brain CT negative. Bands imaging does not reveal source of infection. Patient did have a surgery on his foot about 2 months ago. I remove the cast and examined. There is no infection there. Patient currently fever unknown origin was tested for covid. Has been coughing some. However leukocytosis is not suggestive of covid. Patient is here on broad-spectrum antibiotics a blood culture pending. there is concern for sepsis however due to patient having a history of heart failure I will hold IV fluids. Case discussed with Dr. Nieves. - Lab Data Result diagrams: 05/07/20 23:16 05/07/20 21:52 Lab Results 05/07/20 05/07/20 05/07/20 Range/Units 21:52 21:52 21:52 WBC (3.8-10.6) k/uL RBC (4.30-5.90) m/uL Hgb (13.0-17.5) gm/dL Hct (39.0-53.0) % MCV (80.0-100.0) fL MCH (25.0-35.0) pg MCHC (31.0-37.0) g/dL RDW (11.5-15.5) % Plt Count (150-450) k/uL Neutrophils % (Manual) % Band Neutrophils % % Lymphocytes % (Manual) % Monocytes % (Manual) % Neutrophils # (Manual) (1.3-7.7) k/uL Lymphocytes # (Manual) (1.0-4.8) k/uL Monocytes # (Manual) (0-1.0) k/uL Nucleated RBCs (0-0) /100 WBC Manual Slide Review Hypochromasia PT (9.0-12.0) sec INR (<1.2) APTT (22.0-30.0) sec Sodium 138 (137-145) mmol/L Potassium 4.9 (3.5-5.1) mmol/L Chloride 106 (98-107) mmol/L Carbon Dioxide 21 L (22-30) mmol/L Anion Gap 11 mmol/L BUN 17 (9-20) mg/dL Creatinine 1.32 H (0.66-1.25) mg/dL Est GFR (CKD-EPI)AfAm 60 (>60 ml/min/1.73 sqM) Est GFR (CKD-EPI)NonAf 52 (>60 ml/min/1.73 sqM) Glucose 182 H (74-99) mg/dL Plasma Lactic Acid Jason 1.4 (0.7-2.0) mmol/L Calcium 8.7 (8.4-10.2) mg/dL Total Bilirubin 0.8 (0.2-1.3) mg/dL AST 25 (17-59) U/L ALT 9 (4-49) U/L Alkaline Phosphatase 64 (38-126) U/L Troponin I 0.022 (0.000-0.034) ng/mL NT-Pro-B Natriuret Pep pg/mL Total Protein 7.7 (6.3-8.2) g/dL Albumin 3.8 (3.5-5.0) g/dL Urine Color Urine Appearance (Clear) Urine pH (5.0-8.0) Ur Specific [place] (1.001-1.035) Urine Protein (Negative) Urine Glucose (UA) (Negative) Urine Ketones (Negative) Urine Blood (Negative) Urine Nitrite (Negative) Urine Bilirubin (Negative) Urine Urobilinogen (<2.0) mg/dL Ur Leukocyte Esterase (Negative) Urine RBC (0-5) /hpf Urine WBC (0-5) /hpf Urine Bacteria (None) /hpf Granular Casts (0) /lpf Urine Mucus (None) /hpf 05/07/20 05/07/20 05/07/20 Range/Units 23:16 23:16 23:16 WBC 23.5 H (3.8-10.6) k/uL RBC 3.82 L (4.30-5.90) m/uL Hgb 11.0 L (13.0-17.5) gm/dL Hct 35.7 L (39.0-53.0) % MCV 93.5 (80.0-100.0) fL MCH 28.8 (25.0-35.0) pg MCHC 30.8 L (31.0-37.0) g/dL RDW 14.4 (11.5-15.5) % Plt Count 204 (150-450) k/uL Neutrophils % (Manual) 75 % Band Neutrophils % 13 % Lymphocytes % (Manual) 5 % Monocytes % (Manual) 7 % Neutrophils # (Manual) 20.60 H (1.3-7.7) k/uL Lymphocytes # (Manual) 1.18 (1.0-4.8) k/uL Monocytes # (Manual) 1.65 H (0-1.0) k/uL Nucleated RBCs 0 (0-0) /100 WBC Manual Slide Review Performed Hypochromasia Slight PT 13.0 H (9.0-12.0) sec INR 1.3 H (<1.2) APTT 31.0 H (22.0-30.0) sec Sodium (137-145) mmol/L Potassium (3.5-5.1) mmol/L Chloride (98-107) mmol/L Carbon Dioxide (22-30) mmol/L Anion Gap mmol/L BUN (9-20) mg/dL Creatinine (0.66-1.25) mg/dL Est GFR (CKD-EPI)AfAm (>60 ml/min/1.73 sqM) Est GFR (CKD-EPI)NonAf (>60 ml/min/1.73 sqM) Glucose (74-99) mg/dL Plasma Lactic Acid Jason (0.7-2.0) mmol/L Calcium (8.4-10.2) mg/dL Total Bilirubin (0.2-1.3) mg/dL AST (17-59) U/L ALT (4-49) U/L Alkaline Phosphatase (38-126) U/L Troponin I (0.000-0.034) ng/mL NT-Pro-B Natriuret Pep 3120 pg/mL Total Protein (6.3-8.2) g/dL Albumin (3.5-5.0) g/dL Urine Color Urine Appearance (Clear) Urine pH (5.0-8.0) Ur Specific [place] (1.001-1.035) Urine Protein (Negative) Urine Glucose (UA) (Negative) Urine Ketones (Negative) Urine Blood (Negative) Urine Nitrite (Negative) Urine Bilirubin (Negative) Urine Urobilinogen (<2.0) mg/dL Ur Leukocyte Esterase (Negative) Urine RBC (0-5) /hpf Urine WBC (0-5) /hpf Urine Bacteria (None) /hpf Granular Casts (0) /lpf Urine Mucus (None) /hpf 05/08/20 Range/Units 00:13 WBC (3.8-10.6) k/uL RBC (4.30-5.90) m/uL Hgb (13.0-17.5) gm/dL Hct (39.0-53.0) % MCV (80.0-100.0) fL MCH (25.0-35.0) pg MCHC (31.0-37.0) g/dL RDW (11.5-15.5) % Plt Count (150-450) k/uL Neutrophils % (Manual) % Band Neutrophils % % Lymphocytes % (Manual) % Monocytes % (Manual) % Neutrophils # (Manual) (1.3-7.7) k/uL Lymphocytes # (Manual) (1.0-4.8) k/uL Monocytes # (Manual) (0-1.0) k/uL Nucleated RBCs (0-0) /100 WBC Manual Slide Review Hypochromasia PT (9.0-12.0) sec INR (<1.2) APTT (22.0-30.0) sec Sodium (137-145) mmol/L Potassium (3.5-5.1) mmol/L Chloride (98-107) mmol/L Carbon Dioxide (22-30) mmol/L Anion Gap mmol/L BUN (9-20) mg/dL Creatinine (0.66-1.25) mg/dL Est GFR (CKD-EPI)AfAm (>60 ml/min/1.73 sqM) Est GFR (CKD-EPI)NonAf (>60 ml/min/1.73 sqM) Glucose (74-99) mg/dL Plasma Lactic Acid Jason (0.7-2.0) mmol/L Calcium (8.4-10.2) mg/dL Total Bilirubin (0.2-1.3) mg/dL AST (17-59) U/L ALT (4-49) U/L Alkaline Phosphatase (38-126) U/L Troponin I (0.000-0.034) ng/mL NT-Pro-B Natriuret Pep pg/mL Total Protein (6.3-8.2) g/dL Albumin (3.5-5.0) g/dL Urine Color Yellow Urine Appearance Cloudy (Clear) Urine pH 5.5 (5.0-8.0) Ur Specific [place] 1.015 (1.001-1.035) Urine Protein 1+ H (Negative) Urine Glucose (UA) Trace H (Negative) Urine Ketones Negative (Negative) Urine Blood Small H (Negative) Urine Nitrite Negative (Negative) Urine Bilirubin Negative (Negative) Urine Urobilinogen <2.0 (<2.0) mg/dL Ur Leukocyte Esterase Negative (Negative) Urine RBC 4 (0-5) /hpf Urine WBC 2 (0-5) /hpf Urine Bacteria Rare H (None) /hpf Granular Casts 3 (0) /lpf Urine Mucus Rare H (None) /hpf - EKG Data -: EKG Interpreted by Me (and Dr. Nieves ) EKG Comments: ventricular rate 97, VT interval 154, QRS 134, QT/QTC 366 03/02/1966. Normal si nus rhythm, right bundle branch block. Disposition Clinical Impression: Fever of unknown origin Disposition: ADMITTED IP TO THIS HOSP Condition: Serious Is patient prescribed a controlled substance at d/c from ED?: No Referrals: Karina Camarillo DO [Primary Care Provider] - 1-2 days
[2020-05-08] MEDS ORDERED: SODIUM CHLORIDE 0.9% 500 ML 500 ML IV ONE (00:32)
[2020-05-08] MEDS ORDERED: VANCOMYCIN IV PER PHARMACY 1 EACH MISC MISCELLANE PRN (01:17)
[2020-05-08] MEDS ORDERED: VANCOMYCIN 1,500 MG in SODIUM CHLORIDE 0.9% 250 ML IVPB ONE (01:30)
--- NOTE | 2020-05-08 02:15 | CT ---
EXAMINATION TYPE: CT ChestAbdPelvis w con DATE OF EXAM: 05/08/2020 COMPARISON: None HISTORY: weakness Fever CT DLP: 1289 mGycm Automated exposure control for dose reduction was used. CONTRAST: Performed with IV Contrast, patient injected with 80 mL of Isovue 300. Images obtained from the thoracic inlet to the floor the pelvis with IV contrast. There is some patchy infiltrate and atelectasis at the posterior lung bases. There is some coalescent airspace infiltrate right posterior lung base. There is some patchy calcification at the right later al posterior lung base consistent with pleural calcification. Heart size is normal. There is no peric ardial effusion. There is mild atheromatous change in the thoracic aorta. There are a few paratrachea l lymph nodes that measure up to 1 cm. There are no hilar masses. There is significant luminal narrow ing or obstruction of right lower lobe bronchus in the posterior basal segment. Liver and gallbladder appear normal. Spleen is intact. Bile ducts are not dilated. Stomach is intact. There is no pancreatic mass. There is no adrenal mass. Kidneys have normal size. There is no hydronephrosis. There is normal contr ast opacification of the kidneys. There is 1 cm cortical cyst posterior right kidney. Delayed images show satisfactory renal excretion of both kidneys. Abdominal aorta is atheromatous. There is no aneur ysm. There is no retroperitoneal adenopathy. Bladder distends smoothly. There is mild urinary bladder wall thickening. There is metal artifact from right hip prosthesis. There is no inguinal hernia. The re is penile prosthesis. There is no mesenteric edema. There is no ascites or free air. There is no bowel obstruction. Appendi x is not definitely seen. There is no sign of thickened appendix. Thoracic and lumbar vertebra appear intact. There is no compression fracture. There is narrowing of L 4-5 disc space. There is some arthritic change in the left hip joint. The bony pelvis is intact. Ther e is laminectomy defect in the lower lumbar spine. IMPRESSION: There is some patchy consolidation and atelectasis with pleural and pulmonary parenchymal calcificati on right posterior lung base. There is bronchial narrowing. Appearance is nonspecific. I would consid er possibilities of mucous plugging or tumor. No acute abnormality within the abdomen pelvis.
[2020-05-08] MEDS ORDERED: NALOXONE 0.4 MG/ML 1 ML VIAL IV PRN (02:47)
[2020-05-08] MEDS: HYDROcodone/APAP 10-325MG 1 EACH TAB PO SCH ×3 (11:12→20:52)
[2020-05-08] MEDS ORDERED: VANCOMYCIN 1,500 MG in SODIUM CHLORIDE 0.9% 250 ML IVPB SCH (13:00)
[2020-05-08] MEDS: METOPROLOL TARTRATE 50 MG TAB PO SCH (20:52)
[2020-05-08] MEDS: GABAPENTIN 300 MG CAP PO SCH (20:52)
[2020-05-08] MEDS: APIXABAN 5 MG TAB PO SCH (20:52)
--- NOTE | 2020-05-08 21:39 | P.HPIM ---
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 Patient reports that he received a call from his daughter and he had his phone on his walker. He went to grab it and slipped out from underneath him and he fell forward. Patient states that he laid on the ground for about 10 minutes until he was able to get help by EMS. Patient was brought to the hospital. Denied any hitting the head. Patient was seen by his doctor shortly later and she felt that he was little bit confused than normal. She requested that he come to the hospital. Otherwise patient denied any complaints of fever or chills. Patient felt very weak. Does have cough with minimal sputum production. No complaints of chest pain. No nausea vomiting or abdominal pain or diarrhea. Left ankle cast was removed in the ER to look for any infection. Chest x-ray showed mild elevation of the right diaphragm and mild atelectasis right lung base. No heart failure. Normal heart. CT brain showed cerebral atrophy and chronic small vessel ischemia. No acute intracranial abnormality. CT abdomen pelvis and chest showed there is some patchy consolidation and atelectasis with pleural and pulmonary parenchymal calcification right posterior lung base. There is bronchial narrowing. Appearance is nonspecific. Consider possibilities of mucous plugging or tumor. No acute abnormality within the abdomen and pelvis. EKG showed normal sinus rhythm with right bundle branch block. Patient was febrile on admission with T-max of 100.7 and pulse of 100, pulse ox 94% on 2 L nasal cannula. Laboratory data showed WBC 23.5, hemoglobin 11.0 and platelets 204 Sodium 138, potassium 4.9, BUN 17 and creatinine 1.32 proBNP 3120 Troponin 0 0.022 UA is cloudy and negative nitrite and negative leukocyte esterase WBC is 2. Lactic acid 1.4 Review of Systems Constitutional: Patient denies any fever or chills . No generalized weakness or weight loss. Abdomen: Patient denied nausea vomiting and diarrhea and abdominal pain. Cardiovascular: Patient denies any chest pain or short of breath no palpitations. Respiratory: Patient does have cough with minimal sputum production and no shortness of breath Neurologic: Patient denied any numbness or tingling headache. Musculoskeletal: Patient denies any complaints of joint swelling or deformity. Skin: Negative Psychiatric: Negative Endocrine: No heat or cold intolerance. No recent weight gain. Genitourinary: No dysuria or hematuria. All other 14 point ROS negative except the above Past Medical History Past Medical History: CVA/TIA, Diabetes Mellitus, Deep Vein Thrombosis (DVT), Hypertension, Osteoarthritis (OA) Additional Past Medical History / Comment(s): current wound left heel. has dressing change 3x week, wound center patient, states has DVT x3 in rt leg, past hx of diabetes and HTN, no longer requires rx since weight loss. states TIA in 2010 residual muscle weakness in rt leg, wears brace rt leg History of Any Multi-Drug Resistant Organisms: MRSA Date of last positivie culture/infection: 02/08/19 MDRO Source:: left foot Past Surgical History: Back Surgery, Hernia Repair, Orthopedic Surgery, Pacemaker Additional Past Surgical History / Comment(s): cervical fusion, right hip replacement, cataract surgery Past Anesthesia/Blood Transfusion Reactions: No Reported Reaction Type of Cardiac Device: AICD, Unknown Device Placement Date:: May 2018 Past Psychological History: No Psychological Hx Reported Smoking Status: Never smoker Past Alcohol Use History: None Reported Past Drug Use History: None Reported - Past Family History Mother Family Medical History: Cancer Father Family Medical History: Cancer, Coronary Artery Disease (CAD) Medications and Allergies Home Medications Medication Instructions Recorded Confirmed Type Atorvastatin [Lipitor] 10 mg PO QAM 10/29/18 05/08/20 History Metoprolol Tartrate [Lopressor] 100 mg PO BID 10/29/18 05/08/20 History Apixaban [Eliquis] 5 mg PO BID 90 Days #180 tab 10/31/18 05/08/20 Rx Gabapentin [Neurontin] 600 mg PO HS 12/29/18 05/08/20 History HYDROcodone/APAP 10-325MG [[place] 1 tab PO Q6HR 12/29/18 05/08/20 History 10-325] Multivitamins, Thera [Multivitamin 1 tab PO DAILY 05/08/20 05/08/20 History (formulary)] Sodium Bicarbonate Tab 650 mg PO DAILY 05/08/20 05/08/20 History Allergies Allergy/AdvReac Type Severity Reaction Status Date / Time No Known Allergies Allergy Verified 05/08/20 09:03 Physical Exam Vitals: Vital Signs Temp Pulse Pulse Resp BP BP Pulse Ox 05/08/20 07:36 97.7 F 75 14 152/76 97 05/08/20 04:03 97.2 F L 65 16 118/46 98 05/07/20 23:45 97.4 F L 81 16 111/58 96 05/07/20 20:32 100.7 F H 100 18 150/78 94 L 05/07/20 20:30 17 Intake and Output 05/07/20 05/08/20 05/08/20 22:59 06:59 14:59 Intake Total 50 Balance 50 Intake: Oral 50 Other: Voiding Method Urinal Weight 79.832 kg 79.832 kg PHYSICAL EXAMINATION: Patient is lying in the bed comfortably, no acute distress, awake alert and oriented, mildly confused... HEENT: Normocephalic. Neck is supple.left side deviated, Pupils reactive. Nostrils clear. Oral cavity is moist. Ears reveal no drainage. Neck reveals no JVD, carotid bruits, or thyromegaly. CHEST EXAMINATION: Trachea is central. Symmetrical expansion. Bibasilar coarse breath sounds and crackles more on the right than left. No wheezing.. CARDIAC: Normal S1, S2 with no gallops. No murmurs ABDOMEN: Soft. Bowel sounds normal. No organomegaly. No abdominal bruits. Extremities: reveal no edema. No clubbing or cyanosis Neurologically awake, alert, oriented x2-3 with well-coordinated movements. No focal deficits noted Skin: No rash or skin lesions. Psychiatric: Coperative. Nonsuicidal Musculoskeletal: No joint swelling or deformity. Normal range of motion.Left ankle surgical site is intact. Results CBC & Chem 7: 05/07/20 23:16 05/07/20 21:52 Labs: Abnormal Lab Results - Last 24 Hours (Table) 05/07/20 05/07/20 05/07/20 Range/Units 21:52 23:16 23:16 WBC 23.5 H (3.8-10.6) k/uL RBC 3.82 L (4.30-5.90) m/uL Hgb 11.0 L (13.0-17.5) gm/dL Hct 35.7 L (39.0-53.0) % MCHC 30.8 L (31.0-37.0) g/dL Neutrophils # (Manual) 20.60 H (1.3-7.7) k/uL Monocytes # (Manual) 1.65 H (0-1.0) k/uL PT 13.0 H (9.0-12.0) sec INR 1.3 H (<1.2) APTT 31.0 H (22.0-30.0) sec Carbon Dioxide 21 L (22-30) mmol/L Creatinine 1.32 H (0.66-1.25) mg/dL Glucose 182 H (74-99) mg/dL Urine Protein (Negative) Urine Glucose (UA) (Negative) Urine Blood (Negative) Urine Bacteria (None) /hpf Urine Mucus (None) /hpf 05/08/20 Range/Units 00:13 WBC (3.8-10.6) k/uL RBC (4.30-5.90) m/uL Hgb (13.0-17.5) gm/dL Hct (39.0-53.0) % MCHC (31.0-37.0) g/dL Neutrophils # (Manual) (1.3-7.7) k/uL Monocytes # (Manual) (0-1.0) k/uL PT (9.0-12.0) sec INR (<1.2) APTT (22.0-30.0) sec Carbon Dioxide (22-30) mmol/L Creatinine (0.66-1.25) mg/dL Glucose (74-99) mg/dL Urine Protein 1+ H (Negative) Urine Glucose (UA) Trace H (Negative) Urine Blood Small H (Negative) Urine Bacteria Rare H (None) /hpf Urine Mucus Rare H (None) /hpf Thrombosis Risk Factor Assmnt - DVT/VTE Prophylaxis DVT/VTE Prophylaxis: Pharmacologic Prophylaxis ordered - Choose All That Apply Each Risk Factor Represents 3 Points: Age 75 years or older Thrombosis Risk Factor Assessment Total Risk Factor Score: 3 Thrombosis Risk Factor Assessment Level: Moderate Risk Assessment and Plan Assessment: Acute right lower lobe pneumonia with atelectasis and possible underlying mass cannot be excluded. Sepsis secondary to pneumonia Status post mechanical fall and generalized weakness. Recent left ankle surgery at [facility] Mild acute kidney injury with creatinine 1.32 Hypertension Diabetes type 2 diet controlled History of DVTs x3 currently on long-term anticoagulation with Eliquis History of CVA with minimal right-sided weakness History of sick sinus syndrome arrhythmia status post fall. AICD placement History of cervical spine fracture due to fall DVT prophylaxis patient is already on full anticoagulation Plan: Patient will be continued on broad-spectrum antibiotics in the form of vancomycin and ceftriaxone. Patient was given 1 L fluid bolus in the ER. Encourage oral intake. Continue with home blood pressure medications and Eliquis as well. ID was consulted. Patient will need repeat CT chest after i nitiation of pneumonia and pulmonary follow-up. Prognosis guarded with multiple medical problems and comorbid conditions. Time with Patient: Greater than 30
--- NOTE | 2020-05-09 | P.CONS ---
History of Present Illness - Reason for Consult Consult date: 05/08/20 Sepsis and pneumonia Requesting physician: Ochoa Kohler - Chief Complaint Fall x 1 day - History of Present Illness Patient is a 74-year-old male with a past medical history significant for CVA patient did have gait instability and uses a walker patient mentioned he did have the phone in front of a walker and in the phone ring , he tried to picker packer the phone and losing balance and fell down patient was on the ground for about 10 minutes before EMS was called and patient was seen by the daughter after the fall and noted the patient to be slightly confused, patient had been complaining of congested cough for the last few days which is moderate in intens ity and is bring up some thick yellow sputum, patient denies having hemoptysis or pleuritic chest pain denies having any headache or URI symptoms no nausea no vomiting no chest wall no abdominal pain and no diarrhea on arrival to the ER the patient did have a fever of 100.7F patient did have elevated white count of 23,000 chest x-ray with right lower lobe infiltrate patient also have a CT of the chest abdominal pelvis which did shows evidence of right lower lobe infiltrate, narrowing of the distal bronchial and concern for mucous plugging, patient was started on vancomycin pharmacy to dose and Rocephin admitted to the hospital infectious disease was consulted for further management of antibiotic therapy Review of Systems Positive point has been mentioned in the HPI rest of the systems are negative Past Medical History Past Medical History: CVA/TIA, Diabetes Mellitus, Deep Vein Thrombosis (DVT), Hypertension, Osteoarthritis (OA) Additional Past Medical History / Comment(s): current wound left heel. has dressing change 3x week, wound center patient, states has DVT x3 in rt leg, past hx of diabetes and HTN, no longer requires rx since weight loss. states TIA in 2010 residual muscle weakness in rt leg, wears brace rt leg History of Any Multi-Drug Resistant Organisms: MRSA Year Discovered:: 02/08/19 MDRO Source:: left foot Past Surgical History: Back Surgery, Hernia Repair, Orthopedic Surgery, Pacemaker Additional Past Surgical History / Comment(s): cervical fusion, right hip replacement, cataract surgery Past Anesthesia/Blood Transfusion Reactions: No Reported Reaction Type of Cardiac Device: AICD, Unknown Device Placement Date:: May 2018 Past Psychological History: No Psychological Hx Reported Smoking Status: Never smoker Past Alcohol Use History: None Reported Past Drug Use History: None Reported - Past Family History Mother Family Medical History: Cancer Father Family Medical History: Cancer, Coronary Artery Disease (CAD) Medications and Allergies Home Medications Medication Instructions Recorded Confirmed Type Atorvastatin [Lipitor] 10 mg PO QAM 10/29/18 05/08/20 History Metoprolol Tartrate [Lopressor] 100 mg PO BID 10/29/18 05/08/20 History Apixaban [Eliquis] 5 mg PO BID 90 Days #180 tab 10/31/18 05/08/20 Rx Gabapentin [Neurontin] 600 mg PO HS 12/29/18 05/08/20 History HYDROcodone/APAP 10-325MG [[place] 1 tab PO Q6HR 12/29/18 05/08/20 History 10-325] Multivitamins, Thera [Multivitamin 1 tab PO DAILY 05/08/20 05/08/20 History (formulary)] Sodium Bicarbonate Tab 650 mg PO DAILY 05/08/20 05/08/20 History Allergies Allergy/AdvReac Type Severity Reaction Status Date / Time No Known Allergies Allergy Verified 05/08/20 09:03 Physical Exam Vitals: Vital Signs Temp Pulse Pulse Resp BP BP Pulse Ox 05/08/20 14:33 98.1 F 77 18 147/75 96 05/08/20 07:36 97.7 F 75 14 152/76 97 05/08/20 04:03 97.2 F L 65 16 118/46 98 05/07/20 23:45 97.4 F L 81 16 111/58 96 05/07/20 20:32 100.7 F H 100 18 150/78 94 L 05/07/20 20:30 17 Intake and Output 05/08/20 05/08/20 05/08/20 06:59 14:59 22:59 Intake Total 50 Output Total 125 Balance 50 -125 Intake: Oral 50 Output: Urine 125 Other: Voiding Method Urinal Weight 79.832 kg GENERAL DESCRIPTION: An elderly male lying in bed, no distress. No tachypnea or accessory muscle of respiration use. HEENT: Shows Pallor , no scleral icterus. Oral mucous membrane is dry. No pharyngeal erythema or thrush NECK: Trachea central, no thyromegaly. LUNGS: Unlabored breathing. Decreased breath sound at the base. No wheeze or crackle. HEART: S1, S2, regular rate and rhythm. No loud murmur ABDOMEN: Soft, no tenderness , guarding or rigidity, no organomegaly EXTREMITIES: No edema of feet. Patient left leg is wrapped up mention he did have a cast that was removed by the ER physician and a relapse and refused the dressing to be taken off again SKIN: No rash, no masses palpable. NEUROLOGICAL: The patient is awake, alert, oriented x3, mood and affect normal. Results CBC & Chem 7: 05/07/20 23:16 05/07/20 21:52 Labs: Abnormal Lab Results - Last 24 Hours (Table) 05/07/20 05/07/20 05/07/20 Range/Units 21:52 23:16 23:16 WBC 23.5 H (3.8-10.6) k/uL RBC 3.82 L (4.30-5.90) m/uL Hgb 11.0 L (13.0-17.5) gm/dL Hct 35.7 L (39.0-53.0) % MCHC 30.8 L (31.0-37.0) g/dL Neutrophils # (Manual) 20.60 H (1.3-7.7) k/uL Monocytes # (Manual) 1.65 H (0-1.0) k/uL PT 13.0 H (9.0-12.0) sec INR 1.3 H (<1.2) APTT 31.0 H (22.0-30.0) sec Carbon Dioxide 21 L (22-30) mmol/L Creatinine 1.32 H (0.66-1.25) mg/dL Glucose 182 H (74-99) mg/dL Urine Protein (Negative) Urine Glucose (UA) (Negative) Urine Blood (Negative) Urine Bacteria (None) /hpf Urine Mucus (None) /hpf 05/08/20 Range/Units 00:13 WBC (3.8-10.6) k/uL RBC (4.30-5.90) m/uL Hgb (13.0-17.5) gm/dL Hct (39.0-53.0) % MCHC (31.0-37.0) g/dL Neutrophils # (Manual) (1.3-7.7) k/uL Monocytes # (Manual) (0-1.0) k/uL PT (9.0-12.0) sec INR (<1.2) APTT (22.0-30.0) sec Carbon Dioxide (22-30) mmol/L Creatinine (0.66-1.25) mg/dL Glucose (74-99) mg/dL Urine Protein 1+ H (Negative) Urine Glucose (UA) Trace H (Negative) Urine Blood Small H (Negative) Urine Bacteria Rare H (None) /hpf Urine Mucus Rare H (None) /hpf Assessment and Plan Assessment: 1- patient presented to hospital with sepsis in this patient who did have a fever and elevated white count and tachycardia. Likely right lower pneumonia with consult for possible aspiration etiology as there was evidence of some mucous plugging the lower bronchioles and no need to cover for the gram- negative and polymicrobial rogelio associated with this type of pneumonia (1) Sepsis Current Visit: Yes Status: Acute Code(s): A41.9 - SEPSIS, UNSPECIFIED ORGANISM SNOMED Code(s): 03510593 (2) Aspiration pneumonia Current Visit: Yes Status: Acute Code(s): J69.0 - PNEUMONITIS DUE TO INHALATION OF FOOD AND VOMIT SNOMED Code(s): 091981147 Plan: 1- we will try to obtain sputum for Gram stain and culture 2- discontinue vancomycin and Rocephin 3- start the patient on Zosyn 3.375 g every 8 hours We will follow on clinical condition and cultures to further adjust medication if needed Thank you for this consultation will follow this patient with you Time with Patient: Greater than 30
[2020-05-09] MEDS: PIPERACILLIN-TAZOBACTAM 3.375 GM in SODIUM CHLORIDE 0.9% 100 ML IVPB SCH ×4 (00:24→23:59)
[2020-05-09] MEDS: ACETAMINOPHEN TAB 325 MG TAB PO PRN (04:34)
[2020-05-09] MEDS: HYDROcodone/APAP 10-325MG 1 EACH TAB PO SCH ×4 (05:34→21:47)
[2020-05-09] MEDS: APIXABAN 5 MG TAB PO SCH ×2 (07:57→21:47)
[2020-05-09] MEDS: METOPROLOL TARTRATE 50 MG TAB PO SCH ×2 (07:57→21:46)
[2020-05-09] MEDS: MULTIVITAMINS, THERA 1 EACH TAB PO SCH (07:58)
[2020-05-09 10:14] LABS: Basophils # (A) 0.3 k/uL (0-0.2); Basophils % (A) 3 %; Eosinophils # (A) 0.2 k/uL (0-0.7); Eosinophils % (A) 2 %; HCT 33.3 % (39.0-53.0); HGB 10.4 gm/dL (13.0-17.5); Hypochromasia Marked; Lymphocytes # (A) 0.6 k/uL (1.0-4.8); Lymphocytes % (A) 5 %; MCH 30.1 pg (25.0-35.0); MCHC 31.1 g/dL (31.0-37.0); MCV 96.8 fL (80.0-100.0); Mean Platelet Volume 8.8; Monocytes # (A) 1.4 k/uL (0-1.0); Monocytes % (A) 13 %; Neutrophils # (A) 7.9 k/uL (1.3-7.7); Neutrophils % (A) 74 %; Platelet Count 178 k/uL (150-450); RBC 3.44 m/uL (4.30-5.90); RDW 14.4 % (11.5-15.5); WBC 10.6 k/uL (3.8-10.6)
[2020-05-09 10:37] LABS: Calcium 8.3 mg/dL (8.4-10.2); Potassium 4.4 mmol/L (3.5-5.1)
[2020-05-09] MEDS: SODIUM CHLORIDE 0.9% 1,000 ML IV SCH (11:18)
[2020-05-09] MEDS ORDERED: guaiFENesin SYRUP 100MG/5ML 200 MG/10 ML CUP PO PRN (12:04)
--- NOTE | 2020-05-09 16:14 | PN ---
PROGRESS NOTE DATE OF SERVICE: 05/09/2020 REASON FOR FOLLOWUP: Aspiration pneumonia and sepsis. INTERVAL HISTORY: Patient is currently afebrile. The patient is feeling better. Breathing comfortably. The patient's cough has decreased intensity and S1. No chest pain. No nausea, no vomiting. No abdominal pain, no diarrhea. PHYSICAL EXAMINATION: Blood pressure 132/77 with a pulse of 65, temperature 97.6, He is 96% 2 L nasal cannula. General description is an elderly male up in the chair in no distress. RESPIRATORY SYSTEM: Unlabored breathing, decreased breath sounds at the base, no wheeze. HEART: S1, S2. Regular rate and rhythm. ABDOMEN: Soft, no tenderness. EXTREMITIES: No edema of the feet. LABS: Hemoglobin is 10.4, white count 10.7, BUN of 20, creatinine 1.38. Blood and sputum cultures currently pending. DIAGNOSTIC IMPRESSION AND PLAN: Patient admitted to the hospital with sepsis, source likely right lobe pneumonia, possible aspiration etiology. The patient is covered with Zosyn. White count has improved. Will keep the patient on IV Zosyn while waiting for the cultures to finalize, continue supportive care. MMODL / IJN: [id number] /
[2020-05-09] MEDS: GABAPENTIN 300 MG CAP PO SCH (21:47)
[2020-05-10] MEDS: HYDROcodone/APAP 10-325MG 1 EACH TAB PO SCH ×4 (05:50→20:43)
[2020-05-10] MEDS: SODIUM CHLORIDE 0.9% 1,000 ML IV SCH (05:51)
[2020-05-10] MEDS: PIPERACILLIN-TAZOBACTAM 3.375 GM in SODIUM CHLORIDE 0.9% 100 ML IVPB SCH ×2 (08:05→16:28)
[2020-05-10] MEDS: METOPROLOL TARTRATE 50 MG TAB PO SCH ×2 (08:05→20:43)
[2020-05-10] MEDS: APIXABAN 5 MG TAB PO SCH ×2 (08:05→20:43)
[2020-05-10] MEDS: MULTIVITAMINS, THERA 1 EACH TAB PO SCH (08:05)
[2020-05-10 09:33] LABS: Basophils % (A) 0 %; Eosinophils # (A) 0.4 k/uL (0-0.7); Eosinophils % (A) 4 %; HGB 10.3 gm/dL (13.0-17.5); Hypochromasia Marked; Lymphocytes # (A) 1.2 k/uL (1.0-4.8); Lymphocytes % (A) 14 %; MCH 29.1 pg (25.0-35.0); MCHC 30.4 g/dL (31.0-37.0); MCV 95.8 fL (80.0-100.0); Mean Platelet Volume 9.2; Monocytes % (A) 12 %; Neutrophils # (A) 5.7 k/uL (1.3-7.7); Neutrophils % (A) 68 %; Platelet Count 219 k/uL (150-450); RBC 3.55 m/uL (4.30-5.90); WBC 8.5 k/uL (3.8-10.6)
[2020-05-10 09:55] LABS: Calcium 8.2 mg/dL (8.4-10.2); Potassium 4.1 mmol/L (3.5-5.1)
[2020-05-10 13:04] VITALS: BMI 21.4
--- NOTE | 2020-05-10 13:38 | XR ---
Right knee HISTORY: Swelling, pain, trauma several days prior 3 views of the right knee No comparisons Bone mineralization is reduced which limits evaluation. There is chondrocalcinosis present. Alignment and joint spaces are maintained. There are dense vascular calcifications present, correlate for poss ible peripheral vascular occlusive disease, diabetes. Mild marginal spurring present in the medial co mpartment. There is no dislocation. Suprapatellar increased density consistent with joint effusion is noted. There is soft tissue swelling present. IMPRESSION: No evident fracture within the limitations of the exam. Soft tissue swelling and joint ef fusion. Alternate imaging may be of benefit.
[2020-05-10] MEDS: GABAPENTIN 300 MG CAP PO SCH (20:44)
--- NOTE | 2020-05-10 20:50 | PN ---
PROGRESS NOTE DATE OF SERVICE: 05/10/2020 REASON FOR FOLLOWUP: Aspiration pneumonia. INTERVAL HISTORY: Patient is currently afebrile. The patient is breathing more comfortably. The patient did have a cough but is less productive. No chest pain. No nausea, vomiting. No abdominal pain. No diarrhea. PHYSICAL EXAMINATION: Blood pressure 114/72 with a pulse of 99. Temperature is 97.7. He is 97% on room air. General description: The patient is an elderly male lying in bed in no distress. Respiratory system: Unlabored breathing, decreased breath sounds at bases. No wheeze. Heart S1, S2. Irregular rate and rhythm. Abdomen soft, no tenderness. LABS: Sputum is group G strep, Olivia albicans. White count normal. DIAGNOSTIC IMPRESSION AND PLAN: Patient with aspiration pneumonia. Sputum is now showing strep with no resistant gram- negative. Antibiotic adjusted to Unasyn with a plan to finish therapy with oral Augmentin. Continue supportive care. MMODL / IJN: [id number] /
[2020-05-11] MEDS: AMPICILLIN-SULBACTAM 3 GM in SODIUM CHLORIDE 0.9% 100 ML IVPB SCH ×4 (00:54→18:39)
[2020-05-11] MEDS: ACETAMINOPHEN TAB 325 MG TAB PO PRN (01:01)
[2020-05-11] MEDS: SODIUM CHLORIDE 0.9% 1,000 ML IV SCH (03:18)
[2020-05-11] MEDS: HYDROcodone/APAP 10-325MG 1 EACH TAB PO SCH ×4 (05:33→21:12)
[2020-05-11] MEDS: MULTIVITAMINS, THERA 1 EACH TAB PO SCH (08:29)
[2020-05-11] MEDS: APIXABAN 5 MG TAB PO SCH ×2 (08:29→21:12)
[2020-05-11] MEDS: METOPROLOL TARTRATE 50 MG TAB PO SCH ×2 (08:29→21:12)
[2020-05-11 11:50] LABS: Glucose,Whole Blood 211 mg/dL (75-99)
[2020-05-11] MEDS: INSULIN ASPART (NovoLOG) 100 UNIT/ML VIAL SQ SCH ×3 (12:50→21:13)
[2020-05-11 16:54] LABS: Glucose,Whole Blood 119 mg/dL (75-99)
[2020-05-11 20:34] LABS: Glucose,Whole Blood 189 mg/dL (75-99)
[2020-05-11] MEDS: GABAPENTIN 300 MG CAP PO SCH (21:12)
--- NOTE | 2020-05-12 00:01 | PN ---
PROGRESS NOTE DATE OF SERVICE: 05/11/2020 REASON FOR FOLLOWUP: Aspiration pneumonia. INTERVAL HISTORY: The patient is currently afebrile. Patient is breathing comfortably. The patient denies having any chest pain or shortness of breath. Minimal cough. No nausea, no vomiting. No abdominal pain or diarrhea. PHYSICAL EXAMINATION: Blood pressure 177/87, pulse of 74, temperature 98.1. He is 97% on room air. General description is an elderly male up in the bed in no distress. RESPIRATORY SYSTEM: Unlabored breathing, decreased breath sounds at the bases. No wheeze. HEART: S1, S2. Regular rate and rhythm. ABDOMEN: Soft, no tenderness. LABS: No new labs have been obtained today. DIAGNOSTIC IMPRESSION AND PLAN: Patient with fever, source is likely aspiration pneumonia. Sputum has been strep with no evidence of any resistant pathogen. The patient is currently on Unasyn to continue finish therapy with oral Augmentin 875 b.i.d. for another 7 to 10 days and close outpatient followup. MMODL / IJN: [id number] /
[2020-05-12] MEDS: AMPICILLIN-SULBACTAM 3 GM in SODIUM CHLORIDE 0.9% 100 ML IVPB SCH ×4 (00:03→17:57)
[2020-05-12] MEDS: SODIUM CHLORIDE 0.9% 1,000 ML IV SCH ×2 (00:04→21:07)
--- NOTE | 2020-05-12 01:35 | P.PN ---
Subjective Progress Note Date: 05/09/20 Principal diagnosis: Acute right lower lobe pneumonia . 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 Patient reports that he received a call from his daughter and he had his phone on his walker. He went to grab it and slipped out from underneath him and he fell forward. Patient states that he laid on the ground for about 10 minutes until he was able to get help by EMS. Patient was brought to the hospital. Denied any hitting the head. Patient was seen by his doctor shortly later and she felt that he was little bit confused than normal. She requested that he come to the hospital. Otherwise patient denied any complaints of fever or chills. Patient felt very weak. Does have cough with minimal sputum production. No complaints of chest pain. No nausea vomiting or abdominal pain or diarrhea. Left ankle cast was removed in the ER to look for any infection. Chest x-ray showed mild elevation of the right diaphragm and mild atelectasis right lung base. No heart failure. Normal heart. CT brain showed cerebral atrophy and chronic small vessel ischemia. No acute intracranial abnormality. CT abdomen pelvis and chest showed there is some patchy consolidation and atelectasis with pleural and pulmonary parenchymal calcification right posterior lung base. There is bronchial narrowing. Appearance is nonspecific. Consider possibilities of mucous plugging or tumor. No acute abnormality within the abdomen and pelvis. EKG showed normal sinus rhythm with right bundle branch block. Patient was febrile on admission with T-max of 100.7 and pulse of 100, pulse ox 94% on 2 L nasal cannula. Laboratory data showed WBC 23.5, hemoglobin 11.0 and platelets 204 Sodium 138, potassium 4.9, BUN 17 and creatinine 1.32 proBNP 3120 Troponin 0 0.022 UA is cloudy and negative nitrite and negative leukocyte esterase WBC is 2. Lactic acid 1.4 05/09/2020 Patient is currently resting in the bed comfortably. More awake and oriented. Still lethargic. Does have cough without much sputum production. Patient is being continued on antibiotics in the form of Zosyn. Leukocytosis resolved. ID is following. No fever no chills. No complaints of chest pain or shortness breath. No nausea vomiting or abdominal pain or diarrhea. Left ankle pain is better. Current medications reviewed. Objective - Vital Signs Vital signs: Vital Signs Temp 98.2 F 05/09/20 15:00 Pulse 75 05/09/20 15:00 Resp 18 05/09/20 15:00 BP 126/82 05/09/20 15:00 Pulse Ox 91 L 05/09/20 15:00 Intake & Output 05/09/20 05/09/20 05/10/20 06:59 18:59 06:59 Output Total 400 110 Balance -400 -110 Output: Urine 400 110 Other: Voiding Method Urinal # Voids 1 # Bowel Movements 1 - Exam PHYSICAL EXAMINATION: Patient is lying in the bed comfortably, no acute distress, awake alert and oriented, mildly confused... HEENT: Normocephalic. Neck is supple.left side deviated, Pupils reactive. Nostrils clear. Oral cavity is moist. Ears reveal no drainage. Neck reveals no JVD, carotid bruits, or thyromegaly. CHEST EXAMINATION: Trachea is central. Symmetrical expansion. Bibasilar coarse breath sounds and crackles more on the right than left. No wheezing.. CARDIAC: Normal S1, S2 with no gallops. No murmurs ABDOMEN: Soft. Bowel sounds normal. No organomegaly. No abdominal bruits. Extremities: reveal no edema. No clubbing or cyanosis Neurologically awake, alert, oriented x2-3 with well-coordinated movements. No focal deficits noted Skin: No rash or skin lesions. Psychiatric: Coperative. Nonsuicidal Musculoskeletal: No joint swelling or deformity. Normal range of motion.Left ankle surgical site is intact. - Labs CBC & Chem 7: 05/10/20 09:04 05/11/20 07:54 Labs: Abnormal Lab Results - Last 24 Hours (Table) 05/09/20 05/09/20 Range/Units 09:40 09:40 RBC 3.44 L (4.30-5.90) m/uL Hgb 10.4 L (13.0-17.5) gm/dL Hct 33.3 L (39.0-53.0) % Neutrophils # 7.9 H (1.3-7.7) k/uL Lymphocytes # 0.6 L (1.0-4.8) k/uL Monocytes # 1.4 H (0-1.0) k/uL Basophils # 0.3 H (0-0.2) k/uL Creatinine 1.38 H (0.66-1.25) mg/dL Glucose 165 H (74-99) mg/dL Calcium 8.3 L (8.4-10.2) mg/dL Microbiology - Last 24 Hours (Table) 05/08/20 20:40 Gram Stain - Preliminary Sputum Sputum Culture - Preliminary 05/07/20 23:16 Blood Culture - Preliminary Blood No Growth after 24 hours Assessment and Plan Assessment: Acute right lower lobe pneumonia . likely aspiration . atelectasis and possible underlying mass cannot be excluded. Sepsis secondary to pneumonia Status post mechanical fall and generalized weakness. Recent left ankle surgery at [facility] Mild acute kidney injury with creatinine 1.32 Hypertension Diabetes type 2 diet controlled History of DVTs x3 currently on long-term anticoagulation with Eliquis History of CVA with minimal right-sided weakness History of sick sinus syndrome arrhythmia status post fall. AICD placement History of cervical spine fracture due to fall DVT prophylaxis patient is already on full anticoagulation Plan: Patient was started on broad-spectrum antibiotics in the form of vancomycin and ceftriaxone. changed to Zosyn. Patient was given 1 L fluid bolus in the ER. Encourage oral intake. Continue with home blood pressure medications and Eliquis as well. ID is following.. Patient will need repeat CT chest after resolution of pneumonia and pulmonary follow-up. Prognosis guarded with multiple medical problems and comorbid conditions. Time with Patient: Greater than 30
[2020-05-12] MEDS: hydrALAZINE HCL 10 MG TAB PO PRN (01:37)
--- NOTE | 2020-05-12 01:38 | P.PN ---
Subjective Progress Note Date: 05/10/20 Principal diagnosis: Acute right lower lobe pneumonia . 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 Patient reports that he received a call from his daughter and he had his phone on his walker. He went to grab it and slipped out from underneath him and he fell forward. Patient states that he laid on the ground for about 10 minutes until he was able to get help by EMS. Patient was brought to the hospital. Denied any hitting the head. Patient was seen by his doctor shortly later and she felt that he was little bit confused than normal. She requested that he come to the hospital. Otherwise patient denied any complaints of fever or chills. Patient felt very weak. Does have cough with minimal sputum production. No complaints of chest pain. No nausea vomiting or abdominal pain or diarrhea. Left ankle cast was removed in the ER to look for any infection. Chest x-ray showed mild elevation of the right diaphragm and mild atelectasis right lung base. No heart failure. Normal heart. CT brain showed cerebral atrophy and chronic small vessel ischemia. No acute intracranial abnormality. CT abdomen pelvis and chest showed there is some patchy consolidation and atelectasis with pleural and pulmonary parenchymal calcification right posterior lung base. There is bronchial narrowing. Appearance is nonspecific. Consider possibilities of mucous plugging or tumor. No acute abnormality within the abdomen and pelvis. EKG showed normal sinus rhythm with right bundle branch block. Patient was febrile on admission with T-max of 100.7 and pulse of 100, pulse ox 94% on 2 L nasal cannula. Laboratory data showed WBC 23.5, hemoglobin 11.0 and platelets 204 Sodium 138, potassium 4.9, BUN 17 and creatinine 1.32 proBNP 3120 Troponin 0 0.022 UA is cloudy and negative nitrite and negative leukocyte esterase WBC is 2. Lactic acid 1.4 05/09/2020 Patient is currently resting in the bed comfortably. More awake and oriented. Still lethargic. Does have cough without much sputum production. Patient is being continued on antibiotics in the form of Zosyn. Leukocytosis resolved. ID is following. No fever no chills. No complaints of chest pain or shortness breath. No nausea vomiting or abdominal pain or diarrhea. Left ankle pain is better. 05/10/2020 Patient is currently resting in bed comfortably. No fever no chills. Leukocytosis resolved. Patient is currently on antibiotics in the form of Zosyn. Patient does complain of right knee pain. X-ray showed joint effusions tissue swelling. Otherwise patient is able to bear weight. PT OT will be consulted. No fever no chills. No shortness breath. Tolerating oral diet. ID is following. Current medications reviewed. Objective - Vital Signs Vital signs: Vital Signs Temp 97.7 F 05/10/20 15:00 Pulse 99 05/10/20 16:00 Resp 16 05/10/20 16:00 BP 114/78 05/10/20 15:00 Pulse Ox 97 05/10/20 15:00 Intake & Output 05/10/20 05/10/20 05/11/20 06:59 18:59 06:59 Output Total 425 110 Balance -425 -110 Weight 79.832 kg Output: Urine 425 110 Other: Voiding Method Urinal Urinal # Bowel Movements 1 - Exam PHYSICAL EXAMINATION: Patient is lying in the bed comfortably, no acute distress, awake alert and oriented, HEENT: Normocephalic. Neck is supple.left side deviated, Pupils reactive. Nostrils clear. Oral cavity is moist. Ears reveal no drainage. Neck reveals no JVD, carotid bruits, or thyromegaly. CHEST EXAMINATION: Trachea is central. Symmetrical expansion. Bilateral air entry improved. Minimal right basilar crackles. No wheezing.. CARDIAC: Normal S1, S2 with no gallops. No murmurs ABDOMEN: Soft. Bowel sounds normal. No organomegaly. No abdominal bruits. Extremities: reveal no edema. No clubbing or cyanosis Neurologically awake, alert, oriented x3 with well-coordinated movements. No focal deficits noted Skin: No rash or skin lesions. Psychiatric: Coperative. Nonsuicidal Musculoskeletal: No joint swelling or deformity. Normal range of motion. Left ankle surgical site is intact. no swelling. - Labs CBC & Chem 7: 05/10/20 09:04 05/11/20 07:54 Labs: Abnormal Lab Results - Last 24 Hours (Table) 08/12/20 08/12/20 Range/Units 09:04 09:04 RBC 3.55 L (4.30-5.90) m/uL Hgb 10.3 L (13.0-17.5) gm/dL Hct 34.0 L (39.0-53.0) % MCHC 30.4 L (31.0-37.0) g/dL Creatinine 1.46 H (0.66-1.25) mg/dL Glucose 183 H (74-99) mg/dL Calcium 8.2 L (8.4-10.2) mg/dL Microbiology - Last 24 Hours (Table) 05/08/20 20:40 Gram Stain - Preliminary Sputum Sputum Culture - Preliminary Beta Hemolytic Strep Group G Olivia albicans 05/07/20 23:16 Blood Culture - Preliminary Blood No Growth after 48 hours Assessment and Plan Assessment: Acute right lower lobe pneumonia . likely aspiration . atelectasis and possible underlying mass cannot be excluded. Sepsis secondary to pneumonia Status post mechanical fall and generalized weakness. Recent left ankle surgery at [facility] Mild acute kidney injury with creatinine 1.32 Hypertension Diabetes type 2 diet controlled History of DVTs x3 currently on long-term anticoagulation with Eliquis History of CVA with minimal right-sided weakness History of sick sinus syndrome arrhythmia status post fall. AICD placement History of cervical spine fracture due to fall DVT prophylaxis patient is already on full anticoagulation Plan: Patient was started on broad-spectrum antibiotics in the form of vancomycin and ceftriaxone. changed to Zosyn. Patient was given 1 L fluid bolus in the ER. Encourage oral intake. Continue with home blood pressure medications and Eliquis as well. ID is following.. Patient will need repeat CT chest after resolution of pneumonia and pulmonary follow-up. Prognosis guarded with multiple medical problems and comorbid conditions. Time with Patient: Greater than 30
--- NOTE | 2020-05-12 01:40 | P.PN ---
Subjective Progress Note Date: 05/11/20 Principal diagnosis: Acute right lower lobe pneumonia . 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 Patient reports that he received a call from his daughter and he had his phone on his walker. He went to grab it and slipped out from underneath him and he fell forward. Patient states that he laid on the ground for about 10 minutes until he was able to get help by EMS. Patient was brought to the hospital. Denied any hitting the head. Patient was seen by his doctor shortly later and she felt that he was little bit confused than normal. She requested that he come to the hospital. Otherwise patient denied any complaints of fever or chills. Patient felt very weak. Does have cough with minimal sputum production. No complaints of chest pain. No nausea vomiting or abdominal pain or diarrhea. Left ankle cast was removed in the ER to look for any infection. Chest x-ray showed mild elevation of the right diaphragm and mild atelectasis right lung base. No heart failure. Normal heart. CT brain showed cerebral atrophy and chronic small vessel ischemia. No acute intracranial abnormality. CT abdomen pelvis and chest showed there is some patchy consolidation and atelectasis with pleural and pulmonary parenchymal calcification right posterior lung base. There is bronchial narrowing. Appearance is nonspecific. Consider possibilities of mucous plugging or tumor. No acute abnormality within the abdomen and pelvis. EKG showed normal sinus rhythm with right bundle branch block. Patient was febrile on admission with T-max of 100.7 and pulse of 100, pulse ox 94% on 2 L nasal cannula. Laboratory data showed WBC 23.5, hemoglobin 11.0 and platelets 204 Sodium 138, potassium 4.9, BUN 17 and creatinine 1.32 proBNP 3120 Troponin 0 0.022 UA is cloudy and negative nitrite and negative leukocyte esterase WBC is 2. Lactic acid 1.4 05/09/2020 Patient is currently resting in the bed comfortably. More awake and oriented. Still lethargic. Does have cough without much sputum production. Patient is being continued on antibiotics in the form of Zosyn. Leukocytosis resolved. ID is following. No fever no chills. No complaints of chest pain or shortness breath. No nausea vomiting or abdominal pain or diarrhea. Left ankle pain is better. 05/10/2020 Patient is currently resting in bed comfortably. No fever no chills. Leukocytosis resolved. Patient is currently on antibiotics in the form of Zosyn. Patient does complain of right knee pain. X-ray showed joint effusions tissue swelling. Otherwise patient is able to bear weight. PT OT will be consulted. No fever no chills. No shortness breath. Tolerating oral diet. ID is following. 05/11/2020 Patient is currently resting in bed comfortably. No complaints of chest pain or worsening shortness breath. Currently sat Urating well on room air. Blood pressure is elevated with SBP's 170s. Sputum culture showed hemolytic Streptococcus group. Current albicans. Antibiotics changed to Unasyn. PT OT and possible discharge to rehab. Current medications reviewed. Objective - Vital Signs Vital signs: Vital Signs Temp 98.1 F 05/11/20 19:47 Pulse 74 05/11/20 19:47 Resp 20 05/11/20 19:47 BP 177/87 05/11/20 19:47 Pulse Ox 97 05/11/20 19:47 Intake & Output 05/11/20 05/11/20 05/12/20 06:59 18:59 06:59 Intake Total 400 Output Total 300 300 Balance -300 100 Intake: IV 400 Sodium Chloride 0.9% 1, 400 000 ml @ 50 mls/hr IV . Q20H [facility] Rx#:[id number] Output: Urine 300 300 Other: Voiding Method Urinal # Voids 4 - Exam PHYSICAL EXAMINATION: Patient is lying in the bed comfortably, no acute distress, awake alert and oriented, HEENT: Normocephalic. Neck is supple.left side deviated, Pupils reactive. Nostrils clear. Oral cavity is moist. Ears reveal no drainage. Neck reveals no JVD, carotid bruits, or thyromegaly. CHEST EXAMINATION: Trachea is central. Symmetrical expansion. Bilateral air entry improved. Minimal right basilar crackles. No wheezing.. CARDIAC: Normal S1, S2 with no gallops. No murmurs ABDOMEN: Soft. Bowel sounds normal. No organomegaly. No abdominal bruits. Extremities: reveal no edema. No clubbing or cyanosis Neurologically awake, alert, oriented x3 with well-coordinated movements. No focal deficits noted Skin: No rash or skin lesions. Psychiatric: Coperative. Nonsuicidal Musculoskeletal: No joint swelling or deformity. Normal range of motion. Left ankle surgical site is intact. no swelling. - Labs CBC & Chem 7: 05/10/20 09:04 05/11/20 07:54 Labs: Abnormal Lab Results - Last 24 Hours (Table) 05/11/20 05/11/20 05/11/20 Range/Units 11:48 16:53 20:22 POC Glucose (mg/dL) 211 H 119 H 189 H (75-99) mg/dL Microbiology - Last 24 Hours (Table) 05/08/20 20:40 Gram Stain - Final Sputum Sputum Culture - Final Beta Hemolytic Strep Group G Olivia albicans 05/07/20 23:16 Blood Culture - Preliminary Blood No Growth after 72 hours Assessment and Plan Assessment: Acute right lower lobe pneumonia . likely aspiration . atelectasis and possible underlying mass cannot be excluded. Sepsis secondary to pneumonia Status post mechanical fall and generalized weakness. Recent left ankle surgery at [facility] Mild acute kidney injury with creatinine 1.32 Hypertension Diabetes type 2 diet controlled History of DVTs x3 currently on long-term anticoagulation with Eliquis History of CVA with minimal right-sided weakness History of sick sinus syndrome arrhythmia status post fall. AICD placement History of cervical spine fracture due to fall DVT prophylaxis patient is already on full anticoagulation Plan: Patient was started on broad-spectrum antibiotics in the form of vancomycin and ceftriaxone. changed to Zosyn. Patient was given 1 L fluid bolus in the ER. Encourage oral intake. Continue with home blood pressure medications and Eliquis as well. ID is following.. Patient will need repeat CT chest after resolution of pneumonia and pulmonary follow-up. Prognosis guarded with multiple medical problems and comorbid conditions. Time with Patient: Greater than 30
[2020-05-12] MEDS: HYDROcodone/APAP 10-325MG 1 EACH TAB PO SCH ×4 (05:51→21:05)
[2020-05-12] MEDS: INSULIN ASPART (NovoLOG) 100 UNIT/ML VIAL SQ SCH ×4 (07:13→20:57)
[2020-05-12 07:18] LABS: Glucose,Whole Blood 99 mg/dL (75-99)
[2020-05-12] MEDS: ATORVASTATIN 10 MG TAB PO SCH (08:54)
[2020-05-12] MEDS: METOPROLOL TARTRATE 50 MG TAB PO SCH ×2 (08:54→21:05)
[2020-05-12] MEDS: APIXABAN 5 MG TAB PO SCH ×2 (08:54→21:05)
[2020-05-12] MEDS: MULTIVITAMINS, THERA 1 EACH TAB PO SCH (08:54)
[2020-05-12 10:53] LABS: Calcium 8.6 mg/dL (8.4-10.2)
[2020-05-12 11:02] LABS: Basophils # (A) 0.1 k/uL (0-0.2); Basophils % (A) 1 %; Eosinophils # (A) 0.3 k/uL (0-0.7); Eosinophils % (A) 4 %; HCT 36.2 % (39.0-53.0); HGB 10.9 gm/dL (13.0-17.5); Hypochromasia Marked; Lymphocytes # (A) 1.1 k/uL (1.0-4.8); Lymphocytes % (A) 14 %; MCH 29.1 pg (25.0-35.0); Mean Platelet Volume 8.8; Monocytes # (A) 1.1 k/uL (0-1.0); Monocytes % (A) 15 %; Neutrophils # (A) 4.7 k/uL (1.3-7.7); Neutrophils % (A) 62 %; Platelet Count 268 k/uL (150-450); RBC 3.74 m/uL (4.30-5.90); RDW 14.3 % (11.5-15.5); WBC 7.6 k/uL (3.8-10.6)
[2020-05-12 11:12] LABS: Potassium 5.2 mmol/L (3.5-5.1)
[2020-05-12 11:46] LABS: Glucose,Whole Blood 151 mg/dL (75-99)
[2020-05-12] MEDS ORDERED: LOPERAMIDE 2 MG CAP PO STA (14:36)
--- NOTE | 2020-05-12 17:11 | PN ---
PROGRESS NOTE DATE OF SERVICE: 05/12/2020 REASON FOR FOLLOWUP: 1. Aspiration pneumonia. 2. Diarrhea. INTERVAL HISTORY: The patient is currently afebrile. The patient is breathing comfortably. Denies having any chest pain. No shortness of breath. Minimal cough. No nausea, vomiting, abdominal pain, however, has been complaining of multiple loose stools today. PHYSICAL EXAMINATION: Blood pressure 139/77, pulse of 73, temperature 97.3. He is 95% on room air. General description is an elderly male lying in bed in no distress. Respiratory system: Unlabored breathing, clear to auscultation anteriorly. Heart S1, S2. Regular rate and rhythm. Abdomen soft, no tenderness. LABS: Hemoglobin is 10.3, white count 7.6, BUN of 20, creatinine 1.07. DIAGNOSTIC IMPRESSION AND PLAN: Patient with aspiration pneumonia. Sputum has been positive for strep and Olivia. He is currently on Unasyn, have shown clinical improvement, however, developed diarrhea. Patient advised to increase his yogurt and probiotic intake. Plan to finish therapy with oral Augmentin 875 b.i.d. for about a week and close outpatient followup. MMODL / IJN: [id number] /
[2020-05-12 17:56] LABS: Glucose,Whole Blood 139 mg/dL (75-99)
[2020-05-12 20:51] LABS: Glucose,Whole Blood 111 mg/dL (75-99)
[2020-05-12] MEDS: GABAPENTIN 300 MG CAP PO SCH (21:05)
[2020-05-13] MEDS: AMPICILLIN-SULBACTAM 3 GM in SODIUM CHLORIDE 0.9% 100 ML IVPB SCH ×3 (00:30→11:15)
[2020-05-13] MEDS: hydrALAZINE HCL 10 MG TAB PO PRN (02:06)
[2020-05-13] MEDS: LOPERAMIDE 2 MG CAP PO PRN ×3 (04:50→15:52)
[2020-05-13] MEDS: HYDROcodone/APAP 10-325MG 1 EACH TAB PO SCH ×3 (05:38→15:52)
[2020-05-13 06:52] LABS: Glucose,Whole Blood 105 mg/dL (75-99)
[2020-05-13] MEDS: INSULIN ASPART (NovoLOG) 100 UNIT/ML VIAL SQ SCH ×2 (06:55→11:52)
[2020-05-13] MEDS: METOPROLOL TARTRATE 50 MG TAB PO SCH (07:38)
[2020-05-13] MEDS: APIXABAN 5 MG TAB PO SCH (07:38)
[2020-05-13] MEDS: MULTIVITAMINS, THERA 1 EACH TAB PO SCH (07:38)
[2020-05-13] MEDS: ATORVASTATIN 10 MG TAB PO SCH (07:38)
[2020-05-13 09:49] LABS: Calcium 8.6 mg/dL (8.4-10.2); Potassium 4.4 mmol/L (3.5-5.1)
[2020-05-13 09:50] LABS: Basophils % (A) 0 %; Eosinophils # (A) 0.3 k/uL (0-0.7); Eosinophils % (A) 5 %; HCT 37.9 % (39.0-53.0); HGB 11.3 gm/dL (13.0-17.5); Hypochromasia Marked; Lymphocytes # (A) 1.3 k/uL (1.0-4.8); Lymphocytes % (A) 19 %; MCH 28.8 pg (25.0-35.0); MCHC 29.9 g/dL (31.0-37.0); MCV 96.3 fL (80.0-100.0); Mean Platelet Volume 9.5; Monocytes # (A) 1.1 k/uL (0-1.0); Monocytes % (A) 15 %; Neutrophils % (A) 57 %; Platelet Count 234 k/uL (150-450); RBC 3.93 m/uL (4.30-5.90); RDW 14.5 % (11.5-15.5); WBC 7.1 k/uL (3.8-10.6)
[2020-05-13 11:30] LABS: Glucose,Whole Blood 127 mg/dL (75-99)
--- NOTE | 2020-05-13 11:35 | P.PN ---
Subjective Progress Note Date: 05/12/20 Principal diagnosis: Acute right lower lobe pneumonia . 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 Patient reports that he received a call from his daughter and he had his phone on his walker. He went to grab it and slipped out from underneath him and he fell forward. Patient states that he laid on the ground for about 10 minutes until he was able to get help by EMS. Patient was brought to the hospital. Denied any hitting the head. Patient was seen by his doctor shortly later and she felt that he was little bit confused than normal. She requested that he come to the hospital. Otherwise patient denied any complaints of fever or chills. Patient felt very weak. Does have cough with minimal sputum production. No complaints of chest pain. No nausea vomiting or abdominal pain or diarrhea. Left ankle cast was removed in the ER to look for any infection. Chest x-ray showed mild elevation of the right diaphragm and mild atelectasis right lung base. No heart failure. Normal heart. CT brain showed cerebral atrophy and chronic small vessel ischemia. No acute intracranial abnormality. CT abdomen pelvis and chest showed there is some patchy consolidation and atelectasis with pleural and pulmonary parenchymal calcification right posterior lung base. There is bronchial narrowing. Appearance is nonspecific. Consider possibilities of mucous plugging or tumor. No acute abnormality within the abdomen and pelvis. EKG showed normal sinus rhythm with right bundle branch block. Patient was febrile on admission with T-max of 100.7 and pulse of 100, pulse ox 94% on 2 L nasal cannula. Laboratory data showed WBC 23.5, hemoglobin 11.0 and platelets 204 Sodium 138, potassium 4.9, BUN 17 and creatinine 1.32 proBNP 3120 Troponin 0 0.022 UA is cloudy and negative nitrite and negative leukocyte esterase WBC is 2. Lactic acid 1.4 05/09/2020 Patient is currently resting in the bed comfortably. More awake and oriented. Still lethargic. Does have cough without much sputum production. Patient is being continued on antibiotics in the form of Zosyn. Leukocytosis resolved. ID is following. No fever no chills. No complaints of chest pain or shortness breath. No nausea vomiting or abdominal pain or diarrhea. Left ankle pain is better. 05/10/2020 Patient is currently resting in bed comfortably. No fever no chills. Leukocytosis resolved. Patient is currently on antibiotics in the form of Zosyn. Patient does complain of right knee pain. X-ray showed joint effusions tissue swelling. Otherwise patient is able to bear weight. PT OT will be consulted. No fever no chills. No shortness breath. Tolerating oral diet. ID is following. 05/11/2020 Patient is currently resting in bed comfortably. No complaints of chest pain or worsening shortness breath. Currently sat Urating well on room air. Blood pressure is elevated with SBP's 170s. Sputum culture showed hemolytic Streptococcus group. Current albicans. Antibiotics changed to Unasyn. PT OT and possible discharge to rehab. 05/12/2020 Patient is currently lying in the bed comfortably. No complaints of chest pain or shortness of breath. Saturating well on room air. Blood pressure is stable. Leukocytosis is resolved. Patient will be continued on antibiotics in the form of Zosyn and changed to Augmentin as per ID recommendations. Trying to coordinate with his orthopedic surgeon regarding his left foot weightbearing in view of recent surgery. Cast was removed in the ER at [facility]. Possible discharge to rehab once bed is available. Current medications reviewed. Objective - Vital Signs Vital signs: Vital Signs Temp 97.3 F L 05/12/20 15:00 Pulse 73 05/12/20 15:00 Resp 18 05/12/20 15:00 BP 179/77 05/12/20 15:00 Pulse Ox 95 05/12/20 15:00 Intake & Output 05/11/20 05/12/20 05/12/20 18:59 06:59 18:59 Intake Total 400 100 Output Total 300 Balance 100 100 Weight 79.832 kg Intake: IV 400 Sodium Chloride 0.9% 1, 400 000 ml @ 50 mls/hr IV . Q20H SHEEBA Rx#:[id number] Oral 100 Output: Urine 300 Other: Voiding Method Urinal Urinal # Voids 3 2 - Exam PHYSICAL EXAMINATION: Patient is lying in the bed comfortably, no acute distress, awake alert and oriented, HEENT: Normocephalic. Neck is supple.left side deviated, Pupils reactive. Nostrils clear. Oral cavity is moist. Ears reveal no drainage. Neck reveals no JVD, carotid bruits, or thyromegaly. CHEST EXAMINATION: Trachea is central. Symmetrical expansion. Bilateral air entry improved. Minimal right basilar crackles. No wheezing.. CARDIAC: Normal S1, S2 with no gallops. No murmurs ABDOMEN: Soft. Bowel sounds normal. No organomegaly. No abdominal bruits. Extremities: reveal no edema. No clubbing or cyanosis Neurologically awake, alert, oriented x3 with well-coordinated movements. No focal deficits noted Skin: No rash or skin lesions. Psychiatric: Coperative. Nonsuicidal Musculoskeletal: No joint swelling or deformity. Normal range of motion. Left ankle surgical site is intact. no swelling. - Labs CBC & Chem 7: 05/13/20 08:02 05/13/20 08:02 Labs: Abnormal Lab Results - Last 24 Hours (Table) 05/11/20 05/11/20 05/12/20 Range/Units 16:53 20:22 10:23 RBC 3.74 L (4.30-5.90) m/uL Hgb 10.9 L (13.0-17.5) gm/dL Hct 36.2 L (39.0-53.0) % MCHC 30.0 L (31.0-37.0) g/dL Monocytes # 1.1 H (0-1.0) k/uL Potassium (3.5-5.1) mmol/L Glucose (74-99) mg/dL POC Glucose (mg/dL) 119 H 189 H (75-99) mg/dL 05/12/20 05/12/20 Range/Units 10:23 11:42 RBC (4.30-5.90) m/uL Hgb (13.0-17.5) gm/dL Hct (39.0-53.0) % MCHC (31.0-37.0) g/dL Monocytes # (0-1.0) k/uL Potassium 5.2 H (3.5-5.1) mmol/L Glucose 163 H (74-99) mg/dL POC Glucose (mg/dL) 151 H (75-99) mg/dL Microbiology - Last 24 Hours (Table) 05/07/20 23:16 Blood Culture - Preliminary Blood No Growth after 96 hours Assessment and Plan Assessment: Acute right lower lobe pneumonia . likely aspiration pneumonia and atelectasis and possible underlying mass cannot be excluded. Sepsis secondary to pneumonia Status post mechanical fall and generalized weakness. Recent left ankle surgery at [facility] Mild acute kidney injury with creatinine 1.32 Hypertension Diabetes type 2 diet controlled History of DVTs x3 currently on long-term anticoagulation with Eliquis History of CVA with minimal right-sided weakness History of sick sinus syndrome arrhythmia status post fall. AICD placement History of cervical spine fracture due to fall DVT prophylaxis patient is already on full anticoagulation Plan: Patient was started on broad-spectrum antibiotics in the form of vancomycin and ceftriaxone. changed to Zosyn. Patient was given 1 L fluid bolus in the ER. Encourage oral intake. Continue with home blood pressure medications and Eliquis as well. ID is following.. Patient will need repeat CT chest after resolution of pneumonia and pulmonary follow-up. Prognosis guarded with multiple medical problems and comorbid conditions. Time with Patient: Greater than 30
--- NOTE | 2020-05-13 11:38 | P.DS ---
Providers Date of admission: 05/08/20 02:47 Expected date of discharge: 05/13/20 Attending physician: Gisselle Campos Consults: 05/08/20 15:22 Consult Physician Routine Consulting Provider: Pablito Lynne Consult Reason/Comments: Pnemonia Do you want consulting provider notified?: Yes Primary care physician: Karina Marquise Layton Hospital Course: Discharge diagnosis Acute right lower lobe pneumonia . likely aspiration pneumonia and atelectasis and possible underlying mass cannot be excluded. Sepsis secondary to pneumonia Status post mechanical fall and generalized weakness. Recent left ankle surgery at [facility] Mild acute kidney injury with creatinine 1.32 Hypertension Diabetes type 2 diet controlled History of DVTs x3 currently on long-term anticoagulation with Eliquis History of CVA with minimal right-sided weakness History of sick sinus syndrome arrhythmia status post fall. 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 Patient reports that he received a call from his daughter and he had his phone on his walker. He went to grab it and slipped out from underneath him and he fell forward. Patient states that he laid on the ground for about 10 minutes until he was able to get help by EMS. Patient was brought to the hospital. Denied any hitting the head. Patient was seen by his doctor shortly later and she felt that he was little bit confused than normal. She requested that he come to the hospital. Otherwise patient denied any complaints of fever or chills. Patient felt very weak. Does have cough with minimal sputum production. No complaints of chest pain. No nausea vomiting or abdominal pain or diarrhea. Left ankle cast was removed in the ER to look for any infection. Chest x-ray showed mild elevation of the right diaphragm and mild atelectasis right lung base. No heart failure. Normal heart. CT brain showed cerebral atrophy and chronic small vessel ischemia. No acute intracranial abnormality. CT abdomen pelvis and chest showed there is some patchy consolidation and atelectasis with pleural and pulmonary parenchymal calcification right posterior lung base. There is bronchial narrowing. Appearance is nonspecific. Consider possibilities of mucous plugging or tumor. No acute abnormality within the abdomen and pelvis. EKG showed normal sinus rhythm with right bundle branch block. Patient was febrile on admission with T-max of 100.7 and pulse of 100, pulse ox 94% on 2 L nasal cannula. Laboratory data showed WBC 23.5, hemoglobin 11.0 and platelets 204 Sodium 138, potassium 4.9, BUN 17 and creatinine 1.32 proBNP 3120 Troponin 0 0.022 UA is cloudy and negative nitrite and negative leukocyte esterase WBC is 2. Lactic acid 1.4 05/09/2020 Patient is currently resting in the bed comfortably. More awake and oriented. Still lethargic. Does have cough without much sputum production. Patient is being continued on antibiotics in the form of Zosyn. Leukocytosis resolved. ID is following. No fever no chills. No complaints of chest pain or shortness breath. No nausea vomiting or abdominal pain or diarrhea. Left ankle pain is better. 05/10/2020 Patient is currently resting in bed comfortably. No fever no chills. Leukocytosis resolved. Patient is currently on antibiotics in the form of Zosyn. Patient does complain of right knee pain. X-ray showed joint effusions tissue swelling. Otherwise patient is able to bear weight. PT OT will be consulted. No fever no chills. No shortness breath. Tolerating oral diet. ID is following. 05/11/2020 Patient is currently resting in bed comfortably. No complaints of chest pain or worsening shortness breath. Currently sat Urating well on room air. Blood pressure is elevated with SBP's 170s. Sputum culture showed hemolytic Streptococcus group. Current albicans. Antibiotics changed to Unasyn. PT OT and possible discharge to rehab. 05/12/2020 Patient is currently lying in the bed comfortably. No complaints of chest pain or shortness of breath. Saturating well on room air. Blood pressure is stable. Leukocytosis is resolved. Patient will be continued on antibiotics in the form of Zosyn and changed to Augmentin as per ID recommendations. Trying to coordinate with his orthopedic surgeon regarding his left foot weightbearing in view of recent surgery. Cast was removed in the ER at [facility]. Possible discharge to rehab once bed is available. 05/13/2020 Patient denied any complaints of chest pain or shortness of breath. He has some loose diarrhea improved with Imodium. No leukocytosis. No foul-smelling. no abdominal pain. Unlikely C. diff infection Patient will be continued on oral antibiotics and is stable to be discharged to rehab. Follow-up with his orthopedic surgeon on Friday. No fever no chills. No other acute overnight issues. PHYSICAL EXAMINATION: Patient is lying in the bed comfortably, no acute distress, awake alert and oriented, HEENT: Normocephalic. Neck is supple.left side deviated, Pupils reactive. Nostrils clear. Oral cavity is moist. Ears reveal no drainage. Neck reveals no JVD, carotid bruits, or thyromegaly. CHEST EXAMINATION: Trachea is central. Symmetrical expansion. Bilateral air entry improved. Minimal right basilar crackles. No wheezing.. CARDIAC: Normal S1, S2 with no gallops. No murmurs ABDOMEN: Soft. Bowel sounds normal. No organomegaly. No abdominal bruits. Extremities: reveal no edema. No clubbing or cyanosis Neurologically awake, alert, oriented x3 with well-coordinated movements. No focal deficits noted Skin: No rash or skin lesions. Psychiatric: Coperative. Nonsuicidal Musculoskeletal: No joint swelling or deformity. Normal range of motion. Left ankle surgical site is intact. no swelling. Vital Signs 05/13/20 07:00 Temperature 98.2 F Pulse Rate [ 68 Pulse Oximetery ] Respiratory 16 Rate Blood Pressure 153/75 [Right Arm] O2 Sat by Pulse 93 L Oximetry Total time taken greater than 35 minutes including 18 minutes for counseling and coordination of care. Patient Condition at Discharge: Fair Plan - Discharge Summary New Discharge Prescriptions: New Amoxic-Pot Clav 875-125Mg [Augmentin 875-125] 1 tab PO Q12HR 7 Days #14 tab Continue Atorvastatin [Lipitor] 10 mg PO QAM Metoprolol Tartrate [Lopressor] 100 mg PO BID Apixaban [Eliquis] 5 mg PO BID 90 Days #180 tab Gabapentin [Neurontin] 600 mg PO HS Multivitamins, Thera [Multivitamin (formulary)] 1 tab PO DAILY Changed HYDROcodone/APAP 10-325MG [[place] 10-325] 1 tab PO Q6HR PRN #12 tab PRN Reason: Pain Discontinued Sodium Bicarbonate Tab 650 mg PO DAILY Discharge Medication List Atorvastatin [Lipitor] 10 mg PO QAM 10/29/18 [History] Metoprolol Tartrate [Lopressor] 100 mg PO BID 10/29/18 [History] Apixaban [Eliquis] 5 mg PO BID 90 Days #180 tab 10/31/18 [Rx] Gabapentin [Neurontin] 600 mg PO HS 12/29/18 [History] Multivitamins, Thera [Multivitamin (formulary)] 1 tab PO DAILY 05/08/20 [History] Amoxic-Pot Clav 875-125Mg [Augmentin 875-125] 1 tab PO Q12HR 7 Days #14 tab 05/12/20 [Rx] HYDROcodone/APAP 10-325MG [[place] 10-325] 1 tab PO Q6HR PRN #12 tab 05/13/20 [Rx] Follow up Appointment(s)/Referral(s): Karina Camarillo DO [Primary Care Provider] - 1-2 days [facility], [NON-STAFF] - Discharge Disposition: TRANSFER TO SNF/ECF
[2020-05-13 15:41] VITALS: BP 155/82; PULSE 87; RESP 17; TEMP 97.8
--- NOTE | 2020-05-14 16:56 | P.PN ---
Progress Note - Text Progress Note Date: 05/13/20 REASON FOR FOLLOWUP: 1. Aspiration pneumonia. 2. Diarrhea. INTERVAL HISTORY: The patient remains to be afebrile. The patient is breathing comfortably. Denies having any chest pain. No shortness of breath. Minimal cough. No nausea, vomiting, abdominal pain, the patient only has slowed down. PHYSICAL EXAMINATION: Blood pressure 140/70, pulse of 75, temperature 97.3. He is 95% on room air. General description is an elderly male lying in bed in no distress. Respiratory system: Unlabored breathing, clear to auscultation anteriorly. Heart S1, S2. Regular rate and rhythm. Abdomen soft, no tenderness. LABS: Reviewed DIAGNOSTIC IMPRESSION AND PLAN: Patient with aspiration pneumonia. Sputum has been positive for strep and Olivia. Patient had shown clinical improvement on Unasyn pending to finish therapy with oral Augmentin 875 mg twice a day for about a week. Patient advised to increase his probiotic any acute intake
--- NOTE | 2020-05-16 11:09 | CDI ---
Documentation Clarification Form Date: 05/16/20 From: Camila Lau CCS Phone: If you have a question about this query, please contact Jane Connolly, Inorganic Chemistry Professor at [phone] between 8am and 5pm. Admit Date: 05/08/20 Discharge Date: 05/13/20 Patient Name: Ryan Lucas Visit Number: [id number] ATTENTION: The Clinical Documentation Specialists (CDI) and [facility] Coding Staff appreciate your assistance in clarifying documentation. Please respond to the clarification below the line at the bottom and electronically sign. The CDI & [facility] Coding staff will review the response and follow-up if needed. Please note: Queries are made part of the Legal Health Record. If you have any questions, please contact the author of this message via ITS. Dear Dr. Kohler, A pressure ulcer was documented in the Wound Care and Dietary consult. Wound Care Consult and Dietary Consult 05/10 document Stage II pressure injury coccyx. History/Risk Factors: Sepsis, Asp PNA, CVA w/ hemiplegia, HTN, DM, Recent ankle fx, LACHELLE Clinical Indicators: Stage II pressure injury to coccyx Location: Coccyx Wound description: Stage II pressure injury coccyx Treatment: Monitor, Increased nutrient needs for wound healing Consults: Dietary, Wound care In your professional opinion, can you please clarify if you agree with the diagnosis of stage II pressure injury to coccyx? Stage II pressure injury coccyx Pressure injury coccyx other stage Pressure injury other site/stage Other condition, please specify Unable to determine Stage II pressure injury coccyx MTDD
[2020-06-11 15:16] LABS: Glucose,Whole Blood 167 mg/dL (75-99)
== END 2020-05-13 17:50 | DRG 871 ==
LOC: EC 20:28 → 4SSUR 05-08 02:47
PROVIDERS: ADMIT Hospitalist; ATTEND Hospitalist
DX: A40.8 Other streptococcal sepsis (principal); J69.0 Pneumonitis due to inhalation of food and vomit; N17.9 Acute kidney failure, unspecified; I69.351 Hemiplegia and hemiparesis following cerebral infarction affecting right dominant side; Z20.828 Contact with and (suspected) exposure to other viral communicable diseases; R65.20 Severe sepsis without septic shock; I49.5 Sick sinus syndrome; L89.152 Pressure ulcer of sacral region, stage 2; I50.9 Heart failure, unspecified; I11.0 Hypertensive heart disease with heart failure; G31.9 Degenerative disease of nervous system, unspecified; E11.9 Type 2 diabetes mellitus without complications; M19.90 Unspecified osteoarthritis, unspecified site; I45.10 Unspecified right bundle-branch block; S82.892D Other fracture of left lower leg, subsequent encounter for closed fracture with routine healing; M25.461 Effusion, right knee; R19.7 Diarrhea, unspecified; S90.922A Unspecified superficial injury of left foot, initial encounter; W01.0XXA Fall on same level from slipping, tripping and stumbling without subsequent striking against object, initial encounter; Z71.3 Dietary counseling and surveillance; Z79.01 Long term (current) use of anticoagulants; Z79.899 Other long term (current) drug therapy; Z86.718 Personal history of other venous thrombosis and embolism; Z86.14 Personal history of Methicillin resistant Staphylococcus aureus infection; Z95.810 Presence of automatic (implantable) cardiac defibrillator; Z98.890 Other specified postprocedural states; Z98.1 Arthrodesis status; Z96.641 Presence of right artificial hip joint; Z98.49 Cataract extraction status, unspecified eye; Z87.81 Personal history of (healed) traumatic fracture; Z91.81 History of falling; Z82.49 Family history of ischemic heart disease and other diseases of the circulatory system; Z80.9 Family history of malignant neoplasm, unspecified
CPT/HCPCS: 36415; 51701; 70450; 71046; 71260; 74177; 80048; 80053; 81001; 82565; 83605; 83880; 84484; 85025; 85610; 85730; 87040; 87070; 87205; 87635; 93005; 96361; 96365; 96366; 96367; 99285

== ENCOUNTER → 2020-08-22 | Outpatient (CLI) | payer MEDICARE ==
--- NOTE | 2020-08-22 21:55 | CT ---
EXAMINATION TYPE: CT cervical spine wo con DATE OF EXAM: 08/22/2020 COMPARISON: CT cervical spine December 16, 2019. HISTORY: chronic neck pain. 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 History of multiple prior surgeri es. CT DLP: 354.4 mGycm. Automated Exposure Control for Dose Reduction was Utilized. TECHNIQUE: CT scan of the cervical spine is obtained without contrast, axial images are obtained, sa gittal and coronal reformatted images are also reviewed. FINDINGS: Cervical spine is visualized in its entirety from C1 through upper thoracic levels and rede monstrates dextroconvex scoliosis centered mid cervical spine. There is redemonstration of anterior f usion plate and artificial disc material through the C3-C6 levels with stable and satisfactory alignm ent along with bony arthrodesis. There is stable slight grade 1 anterolisthesis C6 on C7 and C7 on T1 . There is redemonstration of an oblique screw through nonhealed transverse type II dens fracture ext ending posteriorly and superiorly with stable alignment. No new healing is present. Some persistent b ignacio protrusion posterior mid C2 level sagittal image 53 effaces anterior thecal sac similar to prior study. Prevertebral soft tissue remains within normal limits. C1-C2 articulation redemonstrates left lateral step-off of C1 on C2. Old healed nonunion spinous process C7 and T1 hangman type fractures ar e redemonstrated. Spinal canal grossly preserved. Review of axial images redemonstrate multilevel uncovertebral facet degenerative changes contributing to multilevel bilateral neural foraminal narrowing. No significant interval change. Heterogeneous no rmal size multinodular thyroid redemonstrated. Lung apices remain clear. There is partial visualizati on of pacemaker leads. There is moderate calcified plaque bilateral carotid bulb level redemonstrated . IMPRESSION: As above. No significant interval change from prior CT.
== END | disposition home or self-care (01) ==
LOC: RADCTMAIN 18:31
PROVIDERS: ATTEND Neurological Surgery
DX: M48.02 Spinal stenosis, cervical region (principal); M50.21 Other cervical disc displacement, high cervical region; M43.12 Spondylolisthesis, cervical region; M43.13 Spondylolisthesis, cervicothoracic region; M41.82 Other forms of scoliosis, cervical region; M47.812 Spondylosis without myelopathy or radiculopathy, cervical region; I65.23 Occlusion and stenosis of bilateral carotid arteries; S12.9XXA Fracture of neck, unspecified, initial encounter; Z87.81 Personal history of (healed) traumatic fracture; Z98.1 Arthrodesis status
CPT/HCPCS: 72125

== ENCOUNTER → 2020-09-15 | Outpatient (CLI) | payer MEDICARE | END | disposition home or self-care (01) | LOC: LABWHC1 11:04 | PROVIDERS: ATTEND Pediatrics Neonatal-Perinatal Medicine | DX: Z01.82 Encounter for allergy testing (principal); I10 Essential (primary) hypertension; E78.5 Hyperlipidemia, unspecified; I47.2 Ventricular tachycardia; R06.00 Dyspnea, unspecified; R00.2 Palpitations | CPT/HCPCS: 36415; 82565; 84520 ==

== ENCOUNTER → 2020-09-19 | Outpatient (CLI) | payer MEDICARE ==
[2020-09-19 14:31] LABS: Basophils # (A) 0.1 k/uL (0-0.2); Basophils % (A) 1 %; Eosinophils # (A) 0.3 k/uL (0-0.7); Eosinophils % (A) 4 %; HGB 13.7 gm/dL (13.0-17.5); Hypochromasia Slight; Lymphocytes # (A) 1.8 k/uL (1.0-4.8); Lymphocytes % (A) 21 %; MCH 29.4 pg (25.0-35.0); MCHC 29.9 g/dL (31.0-37.0); MCV 98.4 fL (80.0-100.0); Mean Platelet Volume 9.5; Monocytes # (A) 1.2 k/uL (0-1.0); Monocytes % (A) 14 %; Neutrophils # (A) 5.1 k/uL (1.3-7.7); Neutrophils % (A) 59 %; Platelet Count 226 k/uL (150-450); RBC 4.68 m/uL (4.30-5.90); RDW 14.4 % (11.5-15.5); WBC 8.7 k/uL (3.8-10.6)
[2020-09-19 22:35] LABS: African American GFR (CKD) 41.2 (60.0-200.0); Anion Gap 16.4 mmol/L (4.00-12.00); BUN/Creat Ratio 15.56 Ratio (12.00-20.00); Calcium 9.2 mg/dL (8.7-10.3); Carbon Dioxide 23.6 mmol/L (21.6-31.8); Non-African American GFR(CKD) 35.5 (60.0-200.0); Potassium 4.6 mmol/L (3.5-5.5)
[2020-09-20 01:17] LABS: Hemoglobin A1C 6.8 % (4.0-6.0)
== END | disposition home or self-care (01) ==
LOC: LABWHC1 12:35
PROVIDERS: ATTEND Family Medicine
DX: C44.229 Squamous cell carcinoma of skin of left ear and external auricular canal (principal); M47.012 Anterior spinal artery compression syndromes, cervical region; E11.42 Type 2 diabetes mellitus with diabetic polyneuropathy; Z79.899 Other long term (current) drug therapy
CPT/HCPCS: 36415; 80048; 82306; 83036; 85025

== ENCOUNTER → 2020-10-19 | Outpatient (CLI) | payer MEDICARE ==
[2020-10-19 12:02] LABS: Basophils # (A) 0.3 k/uL (0-0.2); Basophils % (A) 3 %; Eosinophils # (A) 0.4 k/uL (0-0.7); Eosinophils % (A) 4 %; HCT 43.1 % (39.0-53.0); HGB 13.9 gm/dL (13.0-17.5); Lymphocytes % (A) 11 %; MCHC 32.1 g/dL (31.0-37.0); MCV 96.5 fL (80.0-100.0); Mean Platelet Volume 8.2; Monocytes % (A) 11 %; Neutrophils # (A) 6.4 k/uL (1.3-7.7); Neutrophils % (A) 70 %; Platelet Count 236 k/uL (150-450); RBC 4.47 m/uL (4.30-5.90); RDW 14.2 % (11.5-15.5); WBC 9.2 k/uL (3.8-10.6)
[2020-10-19 20:13] LABS: African American GFR (CKD) 47.5 (60.0-200.0); Albumin 4.5 g/dL (3.80-4.90); Albumin/Globulin Ratio 1.41 (1.60-3.17); Anion Gap 11.3 mmol/L (4.00-12.00); BUN/Creat Ratio 22.5 Ratio (12.00-20.00); Carbon Dioxide 24.7 mmol/L (21.6-31.8); Chol/HDL Ratio 3.15; Globulin 3.2 g/dL (1.6-3.3); LDL Cholesterol,Calculated 35.2 mg/dL (0.0-131.0); Non-African American GFR(CKD) 40.9 (60.0-200.0); Potassium 4.6 mmol/L (3.5-5.5); Total Bilirubin 0.6 mg/dL (0.2-1.2); Total Protein 7.7 g/dL (6.2-8.2); VLDL Calculation 22.8 mg/dL (5.00-40.00)
[2020-10-19 20:15] LABS: PSA Annual Screen 1.8 ng/mL (0.0-4.0)
== END | disposition home or self-care (01) ==
LOC: LABWHC1 11:12
PROVIDERS: ATTEND Family Medicine
DX: Z12.5 Encounter for screening for malignant neoplasm of prostate (principal); E78.5 Hyperlipidemia, unspecified; I10 Essential (primary) hypertension; E11.40 Type 2 diabetes mellitus with diabetic neuropathy, unspecified
CPT/HCPCS: 80061; 80053; 85025; 36415; G0103

== ENCOUNTER 2021-05-02 10:47 | Emergency (ER) | payer MEDICARE, OTHER ==
[2021-05-02 11:04] LABS: Glucose,Whole Blood 137 mg/dL (75-99)
[2021-05-02] MEDS ORDERED: SODIUM CHLORIDE 0.9% 500 ML 500 ML IV STA (11:04)
--- NOTE | 2021-05-02 11:06 | ED ---
General Adult HPI - General Chief complaint: Weakness Stated complaint: Weakness Time Seen by Provider: 05/02/21 10:49 Source: patient, EMS, RN notes reviewed Mode of arrival: EMS Limitations: no limitations - History of Present Illness Initial comments: Patient is a pleasant 75-year-old male presenting to the emergency department with weakness. Patient states his therapist was at the house and wanted him to come. Patient did not feel he needed to come. He should does admit to having diarrhea daily for the past 3 days. Patient states today diarrhea happened before he was able to make it to the bathroom. Patient does use a walker. Patient believes diarrhea secondary to eating spaghetti with hot sauce prior to the first episode. No abdominal pain. No vomiting. Patient is tolerating oral intake. No fever. Patient has chronic right leg weakness which is unchanged secondary to a stroke years ago. - Related Data Home Medications Medication Instructions Recorded Confirmed Atorvastatin [Lipitor] 10 mg PO QAM 10/29/18 05/08/20 Metoprolol Tartrate [Lopressor] 100 mg PO BID 10/29/18 05/08/20 Gabapentin [Neurontin] 600 mg PO HS 12/29/18 05/08/20 Multivitamins, Thera [Multivitamin 1 tab PO DAILY 05/08/20 05/08/20 (formulary)] Previous Rx's Medication Instructions Recorded Apixaban [Eliquis] 5 mg PO BID 90 Days #180 tab 10/31/18 Amoxic-Pot Clav 875-125Mg 1 tab PO Q12HR 7 Days #14 tab 05/12/20 [Augmentin 875-125] HYDROcodone/APAP 10-325MG [[place] 1 tab PO Q6HR PRN #12 tab 05/13/20 10-325] Allergies Allergy/AdvReac Type Severity Reaction Status Date / Time No Known Allergies Allergy Verified 05/02/21 10:55 Review of Systems ROS Statement: Those systems with pertinent positive or pertinent negative responses have been documented in the HPI. ROS Other: All systems not noted in ROS Statement are negative. Constitutional: Denies: fever Eyes: Denies: eye pain ENT: Denies: ear pain Respiratory: Denies: cough Cardiovascular: Denies: chest pain Endocrine: Denies: fatigue Gastrointestinal: Reports: diarrhea. Denies: abdominal pain, nausea, vomiting Genitourinary: Denies: dysuria Musculoskeletal: Denies: back pain Skin: Denies: rash Neurological: Reports: as per HPI Past Medical History Past Medical History: CVA/TIA, Diabetes Mellitus, Deep Vein Thrombosis (DVT), Hypertension, Osteoarthritis (OA) Additional Past Medical History / Comment(s): current wound left heel. has dressing change 3x week, wound center patient, states has DVT x3 in rt leg, past hx of diabetes and HTN, no longer requires rx since weight loss. states TIA in 2010 residual muscle weakness in rt leg, wears brace rt leg History of Any Multi-Drug Resistant Organisms: MRSA Date of last positivie culture/infection: 02/08/19 MDRO Source:: left foot Past Surgical History: Back Surgery, Hernia Repair, Orthopedic Surgery, P acemaker Additional Past Surgical History / Comment(s): cervical fusion, right hip replacement, cataract surgery Past Anesthesia/Blood Transfusion Reactions: No Reported Reaction Type of Cardiac Device: AICD, Unknown Device Placement Date:: May 2018 Past Psychological History: No Psychological Hx Reported Smoking Status: Never smoker Past Alcohol Use History: None Reported Past Drug Use History: None Reported - Past Family History Mother Family Medical History: Cancer Father Family Medical History: Cancer, Coronary Artery Disease (CAD) General Exam Limitations: no limitations General appearance: alert, in no apparent distress Head exam: Present: normocephalic Eye exam: Present: normal appearance Neck exam: Present: normal inspection Respiratory exam: Present: normal lung sounds bilaterally Cardiovascular Exam: Present: regular rate, normal rhythm GI/Abdominal exam: Present: soft. Absent: tenderness Extremities exam: Present: normal inspection Neurological exam: Present: alert, CN II-XII intact Expanded Neurological exam: Present: protecting the airway Motor strength exam: RUE: 5, LUE: 5, RLE: 4 (Patient states chronic), LLE: 5 Eye Response: (4) open spontaneously Motor Response: (6) obeys commands Verbal Response: (5) oriented Psychiatric exam: Present: normal affect, normal mood Skin exam: Present: normal color Course Vital Signs 05/02/21 10:47 Temperature 98.1 F Pulse Rate 87 Respiratory 18 Rate Blood Pressure 113/70 O2 Sat by Pulse 96 Oximetry EKG Findings - EKG Comments: EKG Findings:: Normal sinus rhythm with a rate of 89. MT 140. QRS 128. QT 32. QTC 464. Right axis. Right bundle branch block. No acute ST change. Medical Decision Making - Medical Decision Making Patient reevaluated and feels fine. Patient was able to ambulate using a walker as he does at home. Patient requesting discharge home. Patient updated on results and need for follow-up. - Lab Data Result diagrams: 05/02/21 11:11 05/02/21 11:11 Lab Results 05/02/21 05/02/21 05/02/21 Range/Units 11:01 11:11 11:11 WBC 9.7 (3.8-10.6) k/uL RBC 4.47 (4.30-5.90) m/uL Hgb 13.6 (13.0-17.5) gm/dL Hct 41.3 (39.0-53.0) % MCV 92.5 (80.0-100.0) fL MCH 30.3 (25.0-35.0) pg MCHC 32.8 (31.0-37.0) g/dL RDW 15.2 (11.5-15.5) % Plt Count 250 (150-450) k/uL MPV 9.5 Neutrophils % 72 % Lymphocytes % 11 % Monocytes % 13 % Eosinophils % 2 % Basophils % 1 % Neutrophils # 6.9 (1.3-7.7) k/uL Lymphocytes # 1.1 (1.0-4.8) k/uL Monocytes # 1.3 H (0-1.0) k/uL Eosinophils # 0.2 (0-0.7) k/uL Basophils # 0.1 (0-0.2) k/uL PT 11.3 (9.0-12.0) sec INR 1.1 (<1.2) APTT 25.4 (22.0-30.0) sec Sodium (137-145) mmol/L Potassium (3.5-5.1) mmol/L Chloride (98-107) mmol/L Carbon Dioxide (22-30) mmol/L Anion Gap mmol/L BUN (9-20) mg/dL Creatinine (0.66-1.25) mg/dL Est GFR (CKD-EPI)AfAm (>60 ml/min/1.73 sqM) Est GFR (CKD-EPI)NonAf (>60 ml/min/1.73 sqM) Glucose (74-99) mg/dL POC Glucose (mg/dL) 137 H (75-99) mg/dL POC Glu Building Construction Superintendent Neri Sneed Plasma Lactic Acid Jason (0.7-2.0) mmol/L Calcium (8.4-10.2) mg/dL Total Bilirubin (0.2-1.3) mg/dL AST (17-59) U/L ALT (4-49) U/L Alkaline Phosphatase (38-126) U/L Total Protein (6.3-8.2) g/dL Albumin (3.5-5.0) g/dL 05/02/21 05/02/21 Range/Units 11:11 11:11 WBC (3.8-10.6) k/uL RBC (4.30-5.90) m/uL Hgb (13.0-17.5) gm/dL Hct (39.0-53.0) % MCV (80.0-100.0) fL MCH (25.0-35.0) pg MCHC (31.0-37.0) g/dL RDW (11.5-15.5) % Plt Count (150-450) k/uL MPV Neutrophils % % Lymphocytes % % Monocytes % % Eosinophils % % Basophils % % Neutrophils # (1.3-7.7) k/uL Lymphocytes # (1.0-4.8) k/uL Monocytes # (0-1.0) k/uL Eosinophils # (0-0.7) k/uL Basophils # (0-0.2) k/uL PT (9.0-12.0) sec INR (<1.2) APTT (22.0-30.0) sec Sodium 141 (137-145) mmol/L Potassium 4.8 (3.5-5.1) mmol/L Chloride 108 H (98-107) mmol/L Carbon Dioxide 21 L (22-30) mmol/L Anion Gap 12 mmol/L BUN 30 H (9-20) mg/dL Creatinine 1.53 H (0.66-1.25) mg/dL Est GFR (CKD-EPI)AfAm 50 (>60 ml/min/1.73 sqM) Est GFR (CKD-EPI)NonAf 43 (>60 ml/min/1.73 sqM) Glucose 137 H (74-99) mg/dL POC Glucose (mg/dL) (75-99) mg/dL POC Glu Building Construction Superintendent ID Plasma Lactic Acid Jason 1.5 (0.7-2.0) mmol/L Calcium 9.2 (8.4-10.2) mg/dL Total Bilirubin 0.7 (0.2-1.3) mg/dL AST 21 (17-59) U/L ALT 17 (4-49) U/L Alkaline Phosphatase 69 (38-126) U/L Total Protein 7.8 (6.3-8.2) g/dL Albumin 4.3 (3.5-5.0) g/dL Disposition Clinical Impression: Diarrhea Disposition: HOME SELF-CARE Condition: Stable Instructions (If sedation given, give patient instructions): Acute Diarrhea (ED) Additional Instructions: Please follow-up with primary care physician in the next day or 2 for recheck. Return for weakness, uncontrolled diarrhea, fever, abdominal pain, worsening symptoms or other concerns. Is patient prescribed a controlled substance at d/c from ED?: No Referrals: Karina Camarillo DO [Primary Care Provider] - 1-2 days Time of Disposition: 13:16
[2021-05-02 11:08] VITALS: BP 113/70; PULSE 87; RESP 18; TEMP 98.1
[2021-05-02 11:41] LABS: Basophils # (A) 0.1 k/uL (0-0.2); Basophils % (A) 1 %; Eosinophils # (A) 0.2 k/uL (0-0.7); Eosinophils % (A) 2 %; HCT 41.3 % (39.0-53.0); HGB 13.6 gm/dL (13.0-17.5); Lymphocytes # (A) 1.1 k/uL (1.0-4.8); Lymphocytes % (A) 11 %; MCH 30.3 pg (25.0-35.0); MCHC 32.8 g/dL (31.0-37.0); MCV 92.5 fL (80.0-100.0); Mean Platelet Volume 9.5; Monocytes # (A) 1.3 k/uL (0-1.0); Monocytes % (A) 13 %; Neutrophils # (A) 6.9 k/uL (1.3-7.7); Neutrophils % (A) 72 %; Platelet Count 250 k/uL (150-450); RBC 4.47 m/uL (4.30-5.90); RDW 15.2 % (11.5-15.5); WBC 9.7 k/uL (3.8-10.6)
--- NOTE | 2021-05-02 11:47 | XR ---
EXAMINATION TYPE: XR chest 2V DATE OF EXAM: 05/02/2021 COMPARISON: 05/07/2020 HISTORY: 75-year-old male with weakness TECHNIQUE: AP and lateral views FINDINGS: Left anterior chest wall AICD generator with right atrial and right ventricular leads. Heart normal s ize. Mild hyperinflation. Asymmetric opacity medial right upper lobe is unchanged from prior. Some st [place] basilar atelectasis. Cervical fusion hardware partially visualized. IMPRESSION: Stable asymmetric medial right upper lobe opacity corresponding to healed fracture deformities along the right anterior first/second rib ends. Strandy basilar areas of atelectasis. Mild emphysema. Other daniels, no acute process seen.
[2021-05-02 12:04] LABS: INR 1.1 (<1.2); Partial Thromboplastin Time 25.4 sec (22.0-30.0); Prothrombin Time 11.3 sec (9.0-12.0)
[2021-05-02 12:07] LABS: Albumin 4.3 g/dL (3.5-5.0); Calcium 9.2 mg/dL (8.4-10.2); Potassium 4.8 mmol/L (3.5-5.1); Total Bilirubin 0.7 mg/dL (0.2-1.3); Total Protein 7.8 g/dL (6.3-8.2)
[2021-05-02] MEDS ORDERED: HYDROcodone/APAP 10-325MG 1 EACH TAB PO ONE (14:57)
== END 2021-05-02 15:05 | disposition home or self-care (01) ==
LOC: EC 10:47
DX: R19.7 Diarrhea, unspecified (principal); R53.1 Weakness; E11.9 Type 2 diabetes mellitus without complications; I10 Essential (primary) hypertension
CPT/HCPCS: 36415; 71046; 80053; 83605; 85025; 85610; 85730; 93005; 96360; 99285

== ENCOUNTER 2021-07-07 16:09 | Inpatient (IN) | payer MEDICARE, OTHER ==
[2021-07-07] MEDS ORDERED: SODIUM CHLORIDE 0.9% 1,000 ML IV ONE (16:33)
--- NOTE | 2021-07-07 16:34 | ED ---
Altered Mental Status HPI - General Chief Complaint: Altered Mental Status Stated Complaint: UTI Source: patient, EMS Mode of arrival: EMS Limitations: altered mental status - History of Present Illness Initial Comments: 76-year-old male with past history of CVA, diabetes presents emergency department with visual hallucinations. EMS states that the neighbors were over at the patient's house. He was reporting that he saw worms coming out of the wall and or in his food. There were told that he was currently being treated for a urinary tract infection. Further history is obtained from the patient's daughter. States that he has had multiple recurrent urinary tract infections. He saw his primary care doctor on Friday and was placed on antibiotics. He has a home care nurse that comes and checks on him once per week. It she saw him yesterday and reported that he was positive for proteus in his urine. Patient is taking Bactrim however the daughter cannot state if this was started yesterday or on Friday. The patient is alert and oriented 2. Admits to burning with urination. Denies any headaches. No fevers. Denies any chest pain, cough or shortness of breath. No abdominal pain. No other alleviating, precipitating or modifying factors - Related Data Home Medications Medication Instructions Recorded Confirmed Atorvastatin [Lipitor] 10 mg PO QAM 10/29/18 05/08/20 Metoprolol Tartrate [Lopressor] 100 mg PO BID 10/29/18 05/08/20 Gabapentin [Neurontin] 600 mg PO HS 12/29/18 05/08/20 Multivitamins, Thera [Multivitamin 1 tab PO DAILY 05/08/20 05/08/20 (formulary)] Previous Rx's Medication Instructions Recorded Apixaban [Eliquis] 5 mg PO BID 90 Days #180 tab 10/31/18 Amoxic-Pot Clav 875-125Mg 1 tab PO Q12HR 7 Days #14 tab 05/12/20 [Augmentin 875-125] HYDROcodone/APAP 10-325MG [[place] 1 tab PO Q6HR PRN #12 tab 05/13/20 10-325] Allergies Allergy/AdvReac Type Severity Reaction Status Date / Time No Known Allergies Allergy Verified 05/02/21 10:55 Review of Systems ROS Statement: Those systems with pertinent positive or pertinent negative responses have been documented in the HPI. ROS Other: All systems not noted in ROS Statement are negative. Past Medical History Past Medical History: CVA/TIA, Diabetes Mellitus, Deep Vein Thrombosis (DVT), Hypertension, Osteoarthritis (OA) Additional Past Medical History / Comment(s): current wound left heel. has dressing change 3x week, wound center patient, states has DVT x3 in rt leg, past hx of diabetes and HTN, no longer requires rx since weight loss. states TIA in 2010 residual muscle weakness in rt leg, wears brace rt leg History of Any Multi-Drug Resistant Organisms: MRSA Date of last positivie culture/infection: 02/08/19 MDRO Source:: left foot Past Surgical History: Back Surgery, Hernia Repair, Orthopedic Surgery, Pacemaker Additional Past Surgical History / Comment(s): cervical fusion, right hip replacement, cataract surgery Past Anesthesia/Blood Transfusion Reactions: No Reported Reaction Type of Cardiac Device: AICD, Unknown Device Placement Date:: May 2018 Past Psychological History: No Psychological Hx Reported Smoking Status: Never smoker Past Alcohol Use History: None Reported Past Drug Use History: None Reported - Past Family History Mother Family Medical History: Cancer Father Family Medical History: Cancer, Coronary Artery Disease (CAD) General Exam Limitations: altered mental status Course Vital Signs 07/07/21 07/07/21 16:19 19:27 Temperature 98.6 F 100.1 F H Pulse Rate 108 H 120 H Respiratory 19 17 Rate Blood Pressure 145/67 173/79 O2 Sat by Pulse 95 97 Oximetry Medical Decision Making - Medical Decision Making Upon arrival patient is placed in room 5. A thorough history and physical exam was performed. IV is established and laboratory studies are conducted. Laboratory studies are reviewed and demonstrate a white blood count of 29.3. Potassium is 6.2 however hemolyzed. Creatinine 2.1 which is near the patient's baseline. Troponin 0.040. Urinalysis is positive for moderate leukocyte esterase and rare bacteria. Blood cultures are obtained and patient given a dose of Rocephin his previous cultures were positive for this. We did repeat the patient's potassium due to hemolysis and repeat comes back at 5.4. Because this patient is given an amp of dextrose and 10 units of insulin. He was sent over for a CT of his brain due to the reported hallucinations which demonstrates no acute intracranial abnormality. Chest x-ray demonstrates no active cardiopulmonary disease. The patient's elevated white blood cell count I further ordered a CT abdomen and pelvis. Recommended admission for which I did discuss the case with Dr. Campos and he agreed to admit the patient. He is currently awaiting bed on the floor - Lab Data Result diagrams: 07/07/21 16:36 07/07/21 20:13 Lab Results 07/07/21 07/07/21 07/07/21 Range/Units 16:36 16:36 16:39 WBC 29.3 H (3.8-10.6) k/uL RBC 4.56 (4.30-5.90) m/uL Hgb 13.4 (13.0-17.5) gm/dL Hct 42.1 (39.0-53.0) % MCV 92.3 (80.0-100.0) fL MCH 29.4 (25.0-35.0) pg MCHC 31.8 (31.0-37.0) g/dL RDW 16.5 H (11.5-15.5) % Plt Count 202 (150-450) k/uL MPV 12.6 Neutrophils % (Manual) 89 % Lymphocytes % (Manual) 6 % Monocytes % (Manual) 5 % Neutrophils # (Manual) 26.08 H (1.3-7.7) k/uL Lymphocytes # (Manual) 1.76 (1.0-4.8) k/uL Monocytes # (Manual) 1.47 H (0-1.0) k/uL Nucleated RBCs 0 (0-0) /100 WBC Manual Slide Review Performed Anisocytosis Slight PT 11.9 (9.0-12.0) sec INR 1.1 (<1.2) APTT 26.7 (22.0-30.0) sec Sodium (137-145) mmol/L Potassium (3.5-5.1) mmol/L Chloride (98-107) mmol/L Carbon Dioxide (22-30) mmol/L Anion Gap mmol/L BUN (9-20) mg/dL Creatinine (0.66-1.25) mg/dL Est GFR (CKD-EPI)AfAm (>60 ml/min/1.73 sqM) Est GFR (CKD-EPI)NonAf (>60 ml/min/1.73 sqM) Glucose (74-99) mg/dL Plasma Lactic Acid Jason 1.9 (0.7-2.0) mmol/L Calcium (8.4-10.2) mg/dL Total Bilirubin (0.2-1.3) mg/dL AST (17-59) U/L ALT (4-49) U/L Alkaline Phosphatase (38-126) U/L Troponin I (0.000-0.034) ng/mL Total Protein (6.3-8.2) g/dL Albumin (3.5-5.0) g/dL TSH (0.465-4.680) mIU/L Urine Color Urine Appearance (Clear) Urine pH (5.0-8.0) Ur Specific [place] (1.001-1.035) Urine Protein (Negative) Urine Glucose (UA) (Negative) Urine Ketones (Negative) Urine Blood (Negative) Urine Nitrite (Negative) Urine Bilirubin (Negative) Urine Urobilinogen (<2.0) mg/dL Ur Leukocyte Esterase (Negative) Urine RBC (0-5) /hpf Urine WBC (0-5) /hpf Urine Bacteria (None) /hpf Urine Mucus (None) /hpf Salicylates mg/dL Urine Opiates Screen (NotDetected) Ur Oxycodone Screen (NotDetected) Urine Methadone Screen (NotDetected) Ur Propoxyphene Screen (NotDetected) Acetaminophen ug/mL Ur Barbiturates Screen (NotDetected) U Tricyclic Antidepress (NotDetected) Ur Phencyclidine Scrn (NotDetected) Ur Amphetamines Screen (NotDetected) U Methamphetamines Scrn (NotDetected) U Benzodiazepines Scrn (NotDetected) Urine Cocaine Screen (NotDetected) U Marijuana (THC) Screen (NotDetected) Serum Alcohol mg/dL 07/07/21 07/07/21 07/07/21 Range/Units 18:47 18:47 19:18 WBC (3.8-10.6) k/uL RBC (4.30-5.90) m/uL Hgb (13.0-17.5) gm/dL Hct (39.0-53.0) % MCV (80.0-100.0) fL MCH (25.0-35.0) pg MCHC (31.0-37.0) g/dL RDW (11.5-15.5) % Plt Count (150-450) k/uL MPV Neutrophils % (Manual) % Lymphocytes % (Manual) % Monocytes % (Manual) % Neutrophils # (Manual) (1.3-7.7) k/uL Lymphocytes # (Manual) (1.0-4.8) k/uL Monocytes # (Manual) (0-1.0) k/uL Nucleated RBCs (0-0) /100 WBC Manual Slide Review Anisocytosis PT (9.0-12.0) sec INR (<1.2) APTT (22.0-30.0) sec Sodium 140 (137-145) mmol/L Potassium 6.2 H* (3.5-5.1) mmol/L Chloride 109 H (98-107) mmol/L Carbon Dioxide 19 L (22-30) mmol/L Anion Gap 12 mmol/L BUN 50 H (9-20) mg/dL Creatinine 2.14 H (0.66-1.25) mg/dL Est GFR (CKD-EPI)AfAm 33 (>60 ml/min/1.73 sqM) Est GFR (CKD-EPI)NonAf 29 (>60 ml/min/1.73 sqM) Glucose 168 H (74-99) mg/dL Plasma Lactic Acid Jason (0.7-2.0) mmol/L Calcium 8.7 (8.4-10.2) mg/dL Total Bilirubin 1.2 (0.2-1.3) mg/dL AST 85 H (17-59) U/L ALT 31 (4-49) U/L Alkaline Phosphatase 80 (38-126) U/L Troponin I 0.040 H* (0.000-0.034) ng/mL Total Protein 7.8 (6.3-8.2) g/dL Albumin 3.9 (3.5-5.0) g/dL TSH 1.480 (0.465-4.680) mIU/L Urine Color Yellow Urine Appearance Clear (Clear) Urine pH 6.0 (5.0-8.0) Ur Specific [place] 1.020 (1.001-1.035) Urine Protein 1+ H (Negative) Urine Glucose (UA) Negative (Negative) Urine Ketones Trace H (Negative) Urine Blood Moderate H (Negative) Urine Nitrite Negative (Negative) Urine Bilirubin Negative (Negative) Urine Urobilinogen <2.0 (<2.0) mg/dL Ur Leukocyte Esterase Moderate H (Negative) Urine RBC 3 (0-5) /hpf Urine WBC 12 H (0-5) /hpf Urine Bacteria Rare H (None) /hpf Urine Mucus Rare H (None) /hpf Salicylates <1.0 mg/dL Urine Opiates Screen Detected H (NotDetected) Ur Oxycodone Screen Not Detected (NotDetected) Urine Methadone Screen Not Detected (NotDetected) Ur Propoxyphene Screen Not Detected (NotDetected) Acetaminophen <10.0 ug/mL Ur Barbiturates Screen Not Detected (NotDetected) U Tricyclic Antidepress Not Detected (NotDetected) Ur Phencyclidine Scrn Not Detected (NotDetected) Ur Amphetamines Screen Not Detected (NotDetected) U Methamphetamines Scrn Not Detected (NotDetected) U Benzodiazepines Scrn Detected H (NotDetected) Urine Cocaine Screen Not Detected (NotDetected) U Marijuana (THC) Screen Not Detected (NotDetected) Serum Alcohol <10 mg/dL 07/07/21 Range/Units 20:13 WBC (3.8-10.6) k/uL RBC (4.30-5.90) m/uL Hgb (13.0-17.5) gm/dL Hct (39.0-53.0) % MCV (80.0-100.0) fL MCH (25.0-35.0) pg MCHC (31.0-37.0) g/dL RDW (11.5-15.5) % Plt Count (150-450) k/uL MPV Neutrophils % (Manual) % Lymphocytes % (Manual) % Monocytes % (Manual) % Neutrophils # (Manual) (1.3-7.7) k/uL Lymphocytes # (Manual) (1.0-4.8) k/uL Monocytes # (Manual) (0-1.0) k/uL Nucleated RBCs (0-0) /100 WBC Manual Slide Review Anisocytosis PT (9.0-12.0) sec INR (<1.2) APTT (22.0-30.0) sec Sodium (137-145) mmol/L Potassium 5.4 H (3.5-5.1) mmol/L Chloride (98-107) mmol/L Carbon Dioxide (22-30) mmol/L Anion Gap mmol/L BUN (9-20) mg/dL Creatinine (0.66-1.25) mg/dL Est GFR (CKD-EPI)AfAm (>60 ml/min/1.73 sqM) Est GFR (CKD-EPI)NonAf (>60 ml/min/1.73 sqM) Glucose (74-99) mg/dL Plasma Lactic Acid Jason (0.7-2.0) mmol/L Calcium (8.4-10.2) mg/dL Total Bilirubin (0.2-1.3) mg/dL AST (17-59) U/L ALT (4-49) U/L Alkaline Phosphatase (38-126) U/L Troponin I (0.000-0.034) ng/mL Total Protein (6.3-8.2) g/dL Albumin (3.5-5.0) g/dL TSH (0.465-4.680) mIU/L Urine Color Urine Appearance (Clear) Urine pH (5.0-8.0) Ur Specific [place] (1.001-1.035) Urine Protein (Negative) Urine Glucose (UA) (Negative) Urine Ketones (Negative) Urine Blood (Negative) Urine Nitrite (Negative) Urine Bilirubin (Negative) Urine Urobilinogen (<2.0) mg/dL Ur Leukocyte Esterase (Negative) Urine RBC (0-5) /hpf Urine WBC (0-5) /hpf Urine Bacteria (None) /hpf Urine Mucus (None) /hpf Salicylates mg/dL Urine Opiates Screen (NotDetected) Ur Oxycodone Screen (NotDetected) Urine Methadone Screen (NotDetected) Ur Propoxyphene Screen (NotDetected) Acetaminophen ug/mL Ur Barbiturates Screen (NotDetected) U Tricyclic Antidepress (NotDetected) Ur Phencyclidine Scrn (NotDetected) Ur Amphetamines Screen (NotDetected) U Methamphetamines Scrn (NotDetected) U Benzodiazepines Scrn (NotDetected) Urine Cocaine Screen (NotDetected) U Marijuana (THC) Screen (NotDetected) Serum Alcohol mg/dL - EKG Data EKG Comments: EKG demonstrates sinus tach with a rate of 109. RI interval 142. QRS 120. QTC of 468. Right bundle branch block. No acute ST segment elevations or depressions Disposition Clinical Impression: Visual hallucinations, SIRS (systemic inflammatory response syndrome), UTI (urinary tract infection), Pyrexia Disposition: ADMITTED IP TO THIS HOSP Condition: Stable Is patient prescribed a controlled substance at d/c from ED?: No Referrals: Karina Camarillo DO [Primary Care Provider] - 1-2 days Decision to Admit Reason: Admit from EC Decision Date: 07/07/21 Decision Time: 21:40
[2021-07-07 16:51] LABS: Anisocytosis Slight; HCT 42.1 % (39.0-53.0); HGB 13.4 gm/dL (13.0-17.5); MCH 29.4 pg (25.0-35.0); MCHC 31.8 g/dL (31.0-37.0); MCV 92.3 fL (80.0-100.0); Mean Platelet Volume 12.6; RBC 4.56 m/uL (4.30-5.90); RDW 16.5 % (11.5-15.5); WBC 29.3 k/uL (3.8-10.6)
--- NOTE | 2021-07-07 17:37 | XR ---
EXAMINATION TYPE: XR chest 2V DATE OF EXAM: 07/07/2021 COMPARISON: May 02, 2021 HISTORY: Weakness There is no heart failure nor confluent pneumonic infiltrate. Costophrenic angles are clear. There is left axillary pacemaker. There is cervical spine fusion surgery. Thoracic spine is intact. IMPRESSION: No active cardiopulmonary disease. No change.
[2021-07-07 17:46] LABS: INR 1.1 (<1.2); Partial Thromboplastin Time 26.7 sec (22.0-30.0); Prothrombin Time 11.9 sec (9.0-12.0)
[2021-07-07 18:01] LABS: Lymphocytes # (M) 1.76 k/uL (1.0-4.8); Monocytes # (M) 1.47 k/uL (0-1.0); Neutrophils # (M) 26.08 k/uL (1.3-7.7); Neutrophils % (M) 89 %; Nucleated Red Blood Cells 0 /100 WBC (0-0); Total Cells Counted 100
[2021-07-07 18:03] LABS: Platelet Count 202 k/uL (150-450)
--- NOTE | 2021-07-07 18:25 | CT ---
EXAMINATION TYPE: CT brain wo con DATE OF EXAM: 07/07/2021 COMPARISON: None HISTORY: Altered mental status. CT DLP: 1165.4 mGycm Automated exposure control for dose reduction was used. There is cerebral cortical atrophy. There is no mass effect nor midline shift. There is no sign of in tracranial hemorrhage. Calvarium is intact. Exam limited slightly by motion. Skull base is intact. Th ere is normal aeration of the mastoid sinuses. IMPRESSION: Cerebral atrophy. No acute intracranial abnormality.
[2021-07-07] MEDS ORDERED: cefTRIAXone IN SWFI 1,000 MG/10 ML SYRINGE IVP STA (18:59)
[2021-07-07 19:10] LABS: Acetaminophen <10.0 ug/mL; Alcohol <10 mg/dL; Salicylate <1.0 mg/dL
[2021-07-07] MEDS ORDERED: ACETAMINOPHEN TAB 500 MG TAB PO STA (19:31)
[2021-07-07 19:35] LABS: Appearance,Urine Clear (Clear); Bacteria,Urine Rare /hpf; Bilirubin,Urine Negative (Negative); Blood,Urine Moderate (Negative); Color,Urine Yellow; Glucose,Urine (UA) Negative (Negative); Ketones,Urine Trace (Negative); Leukocyte Esterase,Urine Moderate (Negative); Mucus,Urine Rare /hpf; Nitrite,Urine Negative (Negative); Protein,Urine 1+ (Negative); RBC,Urine 3 /hpf (0-5); Urobilinogen,Urine <2.0 mg/dL (<2.0); WBC,Urine 12 /hpf (0-5)
[2021-07-07 19:53] LABS: ALT 31 U/L (4-49); AST 85 U/L (17-59); African American GFR (CKD) 33 (>60 ml/min/1.73 sqM); Albumin 3.9 g/dL (3.5-5.0); Alkaline Phosphatase 80 U/L (38-126); Anion Gap 12 mmol/L; Blood Urea Nitrogen 50 mg/dL (9-20); Calcium 8.7 mg/dL (8.4-10.2); Carbon Dioxide 19 mmol/L (22-30); Chloride 109 mmol/L (98-107); Glucose 168 mg/dL (74-99); Non-African American GFR(CKD) 29 (>60 ml/min/1.73 sqM); Sodium 140 mmol/L (137-145); Total Bilirubin 1.2 mg/dL (0.2-1.3); Total Protein 7.8 g/dL (6.3-8.2)
[2021-07-07 19:56] LABS: Potassium 6.2 mmol/L (3.5-5.1)
[2021-07-07 19:59] LABS: Amphetamine Screen,Urine Not Detected (NotDetected); Barbiturate Screen,Urine Not Detected (NotDetected); Benzodiazepines Screen,Urine Detected (NotDetected); Cocaine Screen,Urine Not Detected (NotDetected); Methadone Screen, Urine Not Detected (NotDetected); Opiate Screen,Urine Detected (NotDetected); Oxycodone Screen, Urine Not Detected (NotDetected); Phencyclidine Screen,Urine Not Detected (NotDetected); Tricyclic Antidepressant,Urine Not Detected (NotDetected); Urn Cannabinoid Scrn Not Detected (NotDetected)
[2021-07-07] MEDS ORDERED: SODIUM POLYSTYRENE SULFONATE 15 GM/60 ML BOTTLE PO STA (20:42)
[2021-07-07] MEDS ORDERED: DEXTROSE 50% SYRINGE 50 ML IVP STA (21:37)
[2021-07-07] MEDS ORDERED: INSULIN REGULAR 100 UNIT/ML VIAL (IV) IV ONE (21:38)
[2021-07-07] MEDS ORDERED: NALOXONE 0.4 MG/ML 1 ML VIAL IV PRN (21:43)
[2021-07-07] MEDS ORDERED: ACETAMINOPHEN TAB 325 MG TAB PO PRN (21:43)
--- NOTE | 2021-07-07 21:56 | CT ---
EXAMINATION TYPE: CT abdomen pelvis wo con DATE OF EXAM: 07/07/2021 COMPARISON: 05/08/2020. HISTORY: Leukocytosis. CT DLP: 840.3 mGycm Automated exposure control for dose reduction was used. Images obtained from the diaphragm to the floor the pelvis without contrast. There is some patchy air space consolidation right lower lobe. There is some mild infiltrate also left posterior lung base. Th ere is some pleural and pulmonary calcification at the posterior lung bases. Heart size is normal. Liver is intact. Spleen is intact. There is no sign of pancreatic mass. Gallbladder appears normal. T he bile ducts are not dilated. There is no adrenal mass. Kidneys have normal size. There is no hydronephrosis. Ureters are not dilat ed. There is no retroperitoneal adenopathy. Bladder distends smoothly. There is metal artifact from r ight hip prosthesis. There is no free fluid in the pelvis. There is no inguinal hernia. There is veno us prosthesis implant noted. There is no evidence of a pelvic mass. There is no mesenteric edema. There is no ascites or free air. There is no bowel obstruction. Lumbar vertebra have normal alignment. There is disc space narrowing at L4-5 with spurring. There is no compression fracture. Abdominal aorta is atheromatous. Bony pelvis is intact. 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 IMPRESSION: Bilateral lower lobe pneumonia and atelectasis which is similar to old exam. No acute abnormality within the abdomen pelvis. No significant change compared to old exam.
--- NOTE | 2021-07-07 22:01 | HP ---
HISTORY AND PHYSICAL DATE OF SERVICE: 07/07/2021. CHIEF COMPLAINTS: Multiple chief complaints, including recurrent UTI, change in mental status and confusion. HISTORY OF PRESENT ILLNESS: This 76-year-old gentleman with a past medical history of multiple medical problems, including CVA, TIA, diabetes mellitus, type 2, history of DVT, history of hypertension, history of DJD, being followed by Dr. Camarillo in the outpatient setting, apparently had a UTI. The patient had outpatient antibiotics. Patient is living by himself. The patient is able to ambulate with some help, according to him. The patient was found to be confused and was taken to [facility] and admitted for further evaluation and treatment. The patient also had some fever. The patient also has right weakness and hemiplegia with contractures. The patient had right heel wound also. There is no history of any rigor, chills, headache, loss of consciousness, seizures at this time. PAST MEDICAL HISTORY: CVA, TIA, diabetes mellitus, DVT, hypertension, DJD. MEDICATIONS: Home medications are multivitamins, metoprolol, [place], Neurontin, Lipitor, Eliquis and Augmentin. ALLERGIES: NONE. FAMILY HISTORY: History of cancer in the family. SOCIAL HISTORY: No history of smoking. No history of alcohol. REVIEW OF SYSTEMS: ENT: Diminished hearing. Diminished vision. CARDIOVASCULAR SYSTEM: No angina, palpitations. RESPIRATORY SYSTEM: No cough, hemoptysis. GI: No nausea, vomiting, diarrhea. : No dysuria. NERVOUS SYSTEM: As mentioned earlier. ALLERGY/IMMUNOLOGY: No asthma or hay fever. MUSCULOSKELETAL: As mentioned earlier. HEMATOLOGY/ONCOLOGY: No history of anemia. ENDOCRINE: As mentioned earlier. CONSTITUTIONAL: As mentioned earlier. DERMATOLOGY: Negative. RHEUMATOLOGY: n. PHYSICAL EXAMINATION: Patient is alert, oriented . Pulse is 120, blood pressure 173/70, respiration 17, temperature 100.1, pulse ox 97% on 4 L. HEENT: Conjunctivae normal. Oral mucosa moist. NECK: No jugular venous distention. CARDIOVASCULAR: S1, S2 muffled. RESPIRATION: Breath sounds diminished at the bases. A few scattered rhonchi and crackles. ABDOMEN: Soft, nontender. LEGS: No edema. No swelling. NERVOUS SYSTEM: Diffusely weak. Contractures on the right side. SKIN: Noted. JOINTS: No active deforming arthropathy. Contractures present. LAB STUDIES: WBC 29.3, sodium 140, potassium 6.2. Creatinine is 2.14. Troponin 0.040. UA noted. ASSESSMENT: 1. Acute urinary tract infection with sepsis possibly, with failure of outpatient treatment. 2. Acute renal failure with acute dehydration, prerenal, acute tubular necrosis. 3. Hyperkalemia secondary to renal failure. 4. Metabolic acidosis. 5. Troponin 0.040, indeterminate. 6. Increased white count secondary to sepsis. 7. History of right hemiplegia with contractures. 8. Gait dysfunction. 9. Diabetes mellitus, type 2. 10.History of deep vein thrombosis. 11.History of degenerative joint disease. 12.History of left heel wound. 13.History of MRSA. 14.History of pacemaker. 15.History of AICD. 16.Mild protein-calorie malnutrition with body mass index of 20.7. 17.FULL CODE. RECOMMENDATIONS AND DISCUSSION: In 76-year-old gentleman who presented with multiple complex medical issues, we will monitor the patient closely, continue the current medications, continue symptomatic treatment. Will initiate broad-spectrum IV antibiotics. Obtain cultures. IV fluids. Monitor potassium closely. Kayexalate. Guarded prognosis because of multiple complex medical issues. Further recommendations to follow. A copy of this dictation is being forwarded to Dr. Camarillo, who is the primary physician. DANTE / MICHELLE: [id number] / FREEMAN
[2021-07-08 03:14] LABS: Anisocytosis Slight; HCT 42.2 % (39.0-53.0); HGB 13.5 gm/dL (13.0-17.5); MCH 29.2 pg (25.0-35.0); MCHC 32.1 g/dL (31.0-37.0); Mean Platelet Volume 10.6; Platelet Count 239 k/uL (150-450); RBC 4.64 m/uL (4.30-5.90); RDW 16.5 % (11.5-15.5); WBC 32.4 k/uL (3.8-10.6)
[2021-07-08 03:22] LABS: Calcium 9.2 mg/dL (8.4-10.2)
[2021-07-08] MEDS: SODIUM CHLORIDE 0.9% 1,000 ML IV SCH ×3 (09:10→23:47)
[2021-07-08 09:14] LABS: African American GFR (CKD) 39 (>60 ml/min/1.73 sqM); Anion Gap 10 mmol/L; Blood Urea Nitrogen 49 mg/dL (9-20); Calcium 8.8 mg/dL (8.4-10.2); Carbon Dioxide 21 mmol/L (22-30); Chloride 109 mmol/L (98-107); Glucose 208 mg/dL (74-99); Magnesium 1.7 mg/dL (1.6-2.3); Non-African American GFR(CKD) 34 (>60 ml/min/1.73 sqM); Sodium 140 mmol/L (137-145)
--- NOTE | 2021-07-08 10:44 | P.NPCON ---
History of Present Illness - Reason for Consult acute renal failure, chronic renal failure - History of Present Illness Reason for consultation: Acute kidney injury on chronic kidney disease History of present illness: A sign patient is a 76-year-old male seen in renal consultation for acute kidney injury on chronic kidney disease. Patient has chronic kidney disease stage IIIB with baseline creatinine near 1.5 in May 2020. Creatinine this admission peaked at 2.16 and is 1.88 today. Patient pr esented to the hospital with visual hallucinations. Patient had neighbors at his house who noticed the symptom and brought him to the hospital. Patient's currently awake and alert. Patient states he's been taking multiple antibiotics over the last few weeks for urinary tract infection. Patient states as of now he's been maintained on Bactrim. He denies hematuria. No vomiting or diarrhea. No chest pain or shortness of breath. He did have a fever of 100.1F last evening. He does have long-standing history of diabetes. Not on any diuretics. Denies use of nonsteroidals. No edema. Vital signs are stable. General: The patient appeared well nourished and normally developed. HEENT: Head exam is unremarkable. LUNGS: Breath sounds decreased. HEART: Rate and Rhythm are regular. ABDOMEN: Soft, no distention. EXTREMITITES: No edema. Past Medical History Past Medical History: CVA/TIA, Diabetes Mellitus, Deep Vein Thrombosis (DVT), Hypertension, Osteoarthritis (OA) Additional Past Medical History / Comment(s): current wound left heel. has dressing change 3x week, wound center patient, states has DVT x3 in rt leg, past hx of diabetes and HTN, no longer requires rx since weight loss. states TIA in 2010 residual muscle weakness in rt leg, wears brace rt leg History of Any Multi-Drug Resistant Organisms: MRSA Date of last positivie culture/infection: 02/08/19 MDRO Source:: left foot Past Surgical History: Back Surgery, Hernia Repair, Orthopedic Surgery, Pacemaker Additional Past Surgical History / Comment(s): cervical fusion, right hip replacement, cataract surgery Past Anesthesia/Blood Transfusion Reactions: No Reported Reaction Type of Cardiac Device: AICD, Unknown Device Placement Date:: May 2018 Past Psychological History: No Psychological Hx Reported Smoking Status: Never smoker Past Alcohol Use History: None Reported Past Drug Use History: None Reported - Past Family History Mother Family Medical History: Cancer Father Family Medical History: Cancer, Coronary Artery Disease (CAD) Medications and Allergies Home Medications Medication Instructions Recorded Confirmed Type Atorvastatin [Lipitor] 10 mg PO HS 10/29/18 07/07/21 History Apixaban [Eliquis] 5 mg PO BID 90 Days #180 tab 10/31/18 07/07/21 Rx Gabapentin [Neurontin] 300 mg PO BID 12/29/18 07/07/21 History Multivitamins, Thera [Multivitamin 1 tab PO DAILY 05/08/20 07/07/21 History (formulary)] Calcium Carbonate [Calcium] 600 mg PO BID 07/07/21 07/07/21 History Docusate [Colace] 100 mg PO DAILY PRN 07/07/21 07/07/21 History Doxazosin [Cardura] 4 mg PO HS 07/07/21 07/07/21 History HYDROcodone/APAP 7.5-325MG [[place] 1 tab PO Q8H PRN 07/07/21 07/07/21 History 7.5-325] Insulin Glargine,Hum.rec.anlog 8 unit SQ HS 07/07/21 07/07/21 History [Basaglar Kwikpen U-100] Magnesium Oxide 400 mg PO DAILY 07/07/21 07/07/21 History Metoprolol Tartrate [Lopressor] 50 mg PO BID 07/07/21 07/07/21 History Omeprazole 20 mg PO DAILY 07/07/21 07/07/21 History Sulfamethox-Tmp 800-160Mg [Bactrim 1 tab PO Q12H 07/07/21 07/07/21 History DS 800-160 mg] Tamsulosin HCl [Flomax] 0.4 mg PO HS 07/07/21 07/07/21 History methocarbamoL [Robaxin] 750 mg PO Q8H PRN 07/07/21 07/07/21 History Allergies Allergy/AdvReac Type Severity Reaction Status Date / Time No Known Allergies Allergy Verified 07/07/21 21:58 Physical Exam Vitals: Vital Signs Temp Pulse Resp BP Pulse Ox 07/08/21 06:00 102 H 18 139/79 96 07/08/21 01:00 99 19 127/59 97 07/07/21 22:00 99.0 F 07/07/21 19:27 100.1 F H 120 H 17 173/79 97 07/07/21 16:19 98.6 F 108 H 19 145/67 95 Intake and Output 07/07/21 07/08/21 07/08/21 22:59 06:59 14:59 Other: Weight 77.111 kg Results - Lab Results Most recent lab results Calcium 8.8 mg/dL (8.4-10.2) 07/08/21 08:43 Magnesium 1.7 mg/dL (1.6-2.3) 07/08/21 08:43 07/08/21 02:07 07/08/21 08:43 Assessment and Plan Plan: Assessment: 1. Acute kidney injury secondary to ATN from poor intake and Bactrim. Creatinine peaked at 2.16 this admission and is 1.88 today. 2. Hyperkalemia secondary to acute kidney injury, Bactrim and metabolic acidosis. Improved with medical management. 3. Diabetes mellitus. 4. Chronic kidney disease stage IIIB with baseline creatinine near 1.5 s econdary to diabetic kidney disease. 5. UTI. Bactrim held. He did receive Rocephin in the ER. 6. Metabolic acidosis secondary to acute kidney injury and IV fluids. Plan: Maintain IV fluids. Follow-up cultures. Check renal ultrasound. Avoid nephrotoxins. Continue to monitor renal function and urine output. Thank you for the consultation. I will continue to follow the patient with you during his hospital stay.
[2021-07-08] MEDS ORDERED: cefTRIAXone IN SWFI 1,000 MG/10 ML SYRINGE IVP STA (12:14)
[2021-07-08] MEDS ORDERED: DOCUSATE 100 MG CAP PO PRN (12:22)
--- NOTE | 2021-07-08 12:53 | US ---
EXAMINATION TYPE: US kidneys/renal and bladder DATE OF EXAM: 07/08/2021 COMPARISON: CT dated 07/07/2021, ultrasound kidneys 03/17/2020 CLINICAL HISTORY: alma. EC patient with acute encephalopathy; acute UTI with sepsis EXAM MEASUREMENTS: Right Kidney: 10.5 x 6.0 x 5.8 cm Left Kidney: 10.0 x 4.5 x 4.6 cm Post Void Residual Volume: not assessed on EC patient Right Kidney: No hydronephrosis or masses seen ; extracapsular, hypoechoic crescent shaped area is n oted as "sonographic sweat sign" and suggests renal failure Left Kidney: No hydronephrosis or masses seen; extracapsular, hypoechoic crescent shaped area is no micah as "sonographic sweat sign" and suggests renal failure Bladder: well distended Bilateral Jets seen: yes There is no evidence for hydronephrosis at this point in time. No nephrolithiasis is seen. No johnny s are identified. Cortical medullary differentiation is maintained. The urinary bladder is anechoic. Bilateral ureteral jets are seen. IMPRESSION: Renal sizes as described
[2021-07-08] MEDS: LORazepam 2 MG/ML INJ IV PRN ×2 (13:35→21:08)
--- NOTE | 2021-07-08 19:03 | PN ---
PROGRESS NOTE DATE OF SERVICE: 07/08/2021 This 76-year-old gentleman who was admitted with acute UTI with sepsis is being closely monitored. The patient also confused. hyperkalemia, multiple other medical problems. Abdomen and pelvis CAT scan was done which showed bilateral lower lobe pneumonia and atelectasis also like the previous exam. The bladder ultrasound showed no evidence of hydronephrosis, no nephrolithiasis. Renal size was noted. The chest x- ray which was reviewed personally by me showed bilateral possible bibasilar pneumonia. PAST MEDICAL HISTORY: Reviewed. REVIEW OF SYSTEMS: Cardiovascular: No angina or palpitations. Respiration: As mentioned earlier. GI as mentioned earlier. : As mentioned earlier. Nervous system: No numbness or weakness. The patient is confused. Current medications are Tylenol, Eliquis, Lipitor, Tums, Colace, Neurontin. Doses are reviewed. PHYSICAL EXAMINATION: Patient is alert, oriented x 2. Otherwise, confused. Pulse 91, blood pressure 130/94, respiration 15, temperature is normal. Pulse ox 98% on 3 L. HEENT is normal. Neck: No JVD. Cardiovascular: S1, S2 muffled. Respiratory system: Breath sounds diminished at the bases. A few scattered rhonchi. Abdomen: Soft, nontender. Nervous system: No focal deficits. LAB STUDIES: Troponin 0.071 and creatinine is 1.88. WBC 32.4. ASSESSMENT: 1. Acute urinary tract infection with sepsis with failure of outpatient treatment. 2. Possible acute bilateral pneumonia. 3. Acute renal failure with acute tubular necrosis, dehydration. 4. Hyperkalemia, secondary to renal failure. 5. Acute metabolic acidosis, multifactorial. 6. Troponin 0.043 indeterminate. 7. Increased WBC possibly secondary to sepsis. 8. History of right hemiplegia with contractures. 9. Gait dysfunction. 10.Diabetes mellitus type 2. 11.Wound infection. 12.History of deep vein thrombosis. 13.History of degenerative joint disease. 14.History of left heel wound. 15.History of MRSA. 16.History of pacemaker. 17.History of AICD. 18.Mild protein calorie malnutrition, body mass index of 20.7. 19.FULL CODE. RECOMMENDATIONS AND DISCUSSION: Recommend to continue current medications, management and symptomatic treatment. Otherwise, at this time. The patient is on IV Rocephin. I recommend nephrology and Infectious Disease evaluation. Guarded prognosis because of multiple complex medical issues. Further recommendations to follow. Repeat labs ordered. MMODL / IJN: [id number] / FREEMAN
[2021-07-08] MEDS: TAMSULOSIN 0.4 MG CAP.ER.24H PO SCH (21:07)
[2021-07-08] MEDS: APIXABAN 5 MG TAB PO SCH (21:07)
[2021-07-08] MEDS: DOXAZOSIN 4 MG TAB PO SCH (21:07)
[2021-07-08] MEDS: CALCIUM CARBONATE 500 MG CHEWABLE PO SCH (21:07)
[2021-07-08] MEDS: ATORVASTATIN 10 MG TAB PO SCH (21:08)
[2021-07-08] MEDS: METOPROLOL TARTRATE 50 MG TAB PO SCH (21:08)
[2021-07-08] MEDS: GABAPENTIN 300 MG CAP PO SCH (21:08)
[2021-07-08] MEDS: INSULIN DETEMIR (LEVEMIR) 100 UNIT/ML SYR SQ SCH (21:14)
[2021-07-08 21:22] LABS: Glucose,Whole Blood 140 mg/dL (75-99)
--- NOTE | 2021-07-09 07:01 | P.CONS ---
History of Present Illness - Reason for Consult Consult date: 07/08/21 UTI Requesting physician: Christal Sweeney - Chief Complaint seeing things and mental status changes x 1 day - History of Present Illness History of present illness : Patient is 76-year-old male with a past medical history significant for CVA diabetes mellitus, presenting to the hospital via EMS for evaluation of hallucination, apparently the patient members was in his house when they reported the patient someone was coming out of the wall and or in his food, apparently the patient did have history of recurrent UTI and is currently being treated with antibiotic by his primary care physician that was started on Friday that is 5 days per presentation the hospital patient is admitted to burning urine to the ER physician patient arrived evaluation is pleasantly confused however not agitated and not very good historian however not specifically denies any headache no chest pain shortness with occasional cough no abdominal pain or diarrhea patient on presentation the hospital did have low- grade fever 100.1 degree for night patient had a white count of 29.3 there is up to 32.4 today BUN and creatinine were mildly elevated troponin was elevated did have a positive UA urine drug screen was positive for benzos and opiates fried PCR was negative patient did have a chest x-ray no active cardiopulmonary disease CT abdominal pelvis no acute abnormality within the abdominal pelvis patient also have an ultrasound of the no hydronephrosis no masses are identi fied patient is currently being treated with the Rocephin infectious disease was consulted for further management concern for recurrent UTI with sepsis Review of system: Positive point has been mentioned in HPI complete review could not be obtained because of underlying mental status Past medical history : Reviewed, documented below Past surgical history : Reviewed, documented below Social history: Reviewed, documented below Medications: Reviewed, as documented below EXAMINATION: Vital sigans= Reviewed and documented below GENERAL DESCRIPTION: Elderly male lying in bed, no distress. No tachypnea or accessory muscle of respiration use. HEENT: Shows Pallor , no scleral icterus. Oral mucous membrane is dry. NECK: Trachea central, no thyromegaly. LUNGS: Unlabored breathing. Clear to auscultation anteriorly. No wheeze or crackle. HEART: S1, S2, regular rate and rhythm. ABDOMEN: Soft, no tenderness , guarding or rigidity EXTREMITIES: No edema of feet. SKIN: No rash, no masses palpable. NEUROLOGICAL: The patient is awake, alert, oriented x2, mood and affect normal. LABS AND RADIOLOGY: Reviewed results see below Assessment : Patient presented to hospital with hallucination mental status changes in this patient who did have a history of recurrent urinary tract infection did have a positive UA elevated white count likely source of his mental status changes and likely from enteric gram-negative pathogen CT abdominal pelvis as well as ultrasound did not show any structure abnormality in the kidneys and bladder area, failing outpatient oral Bactrim DS therapy Plan: 1-Rocephin 1 g daily to continued 2-gentle IV fluid We will follow on clinical condition and cultures to further adjust medication if needed Thank you for this consultation we will follow the patient along with you Past Medical History Past Medical History: CVA/TIA, Diabetes Mellitus, Deep Vein Thrombosis (DVT), Hypertension, Osteoarthritis (OA) Additional Past Medical History / Comment(s): current wound left heel. has dressing change 3x week, wound center patient, states has DVT x3 in rt leg, past hx of diabetes and HTN, no longer requires rx since weight loss. states TIA in 2010 residual muscle weakness in rt leg, wears brace rt leg History of Any Multi-Drug Resistant Organisms: MRSA Year Discovered:: 02/08/19 MDRO Source:: left foot Past Surgical History: Back Surgery, Hernia Repair, Orthopedic Surgery, Pacemaker Additional Past Surgical History / Comment(s): cervical fusion, right hip replacement, cataract surgery Past Anesthesia/Blood Transfusion Reactions: No Reported Reaction Type of Cardiac Device: AICD, Unknown Device Placement Date:: May 2018 Past Psychological History: No Psychological Hx Reported Smoking Status: Never smoker Past Alcohol Use History: None Reported Past Drug Use History: None Reported - Past Family History Mother Family Medical History: Cancer Father Family Medical History: Cancer, Coronary Artery Disease (CAD) Medications and Allergies Home Medications Medication Instructions Recorded Confirmed Type Atorvastatin [Lipitor] 10 mg PO HS 10/29/18 07/07/21 History Apixaban [Eliquis] 5 mg PO BID 90 Days #180 tab 10/31/18 07/07/21 Rx Gabapentin [Neurontin] 300 mg PO BID 12/29/18 07/07/21 History Multivitamins, Thera [Multivitamin 1 tab PO DAILY 05/08/20 07/07/21 History (formulary)] Calcium Carbonate [Calcium] 600 mg PO BID 07/07/21 07/07/21 History Docusate [Colace] 100 mg PO DAILY PRN 07/07/21 07/07/21 History Doxazosin [Cardura] 4 mg PO HS 07/07/21 07/07/21 History HYDROcodone/APAP 7.5-325MG [[place] 1 tab PO Q8H PRN 07/07/21 07/07/21 History 7.5-325] Insulin Glargine,Hum.rec.anlog 8 unit SQ HS 07/07/21 07/07/21 History [Basaglar Kwikpen U-100] Magnesium Oxide 400 mg PO DAILY 07/07/21 07/07/21 History Metoprolol Tartrate [Lopressor] 50 mg PO BID 07/07/21 07/07/21 History Omeprazole 20 mg PO DAILY 07/07/21 07/07/21 History Sulfamethox-Tmp 800-160Mg [Bactrim 1 tab PO Q12H 07/07/21 07/07/21 History DS 800-160 mg] Tamsulosin HCl [Flomax] 0.4 mg PO HS 07/07/21 07/07/21 History methocarbamoL [Robaxin] 750 mg PO Q8H PRN 07/07/21 07/07/21 History Allergies Allergy/AdvReac Type Severity Reaction Status Date / Time No Known Allergies Allergy Verified 07/07/21 21:58 Physical Exam Vitals: Vital Signs Temp Pulse Resp BP Pulse Ox 07/08/21 15:00 91 15 132/94 99 07/08/21 14:00 95 16 157/81 07/08/21 13:00 106 H 18 130/85 97 07/08/21 12:00 94 16 142/105 07/08/21 11:00 101 H 15 152/72 96 07/08/21 10:45 98 18 152/72 97 07/08/21 10:00 159/81 07/08/21 09:00 97 23 151/89 07/08/21 08:00 102 H 5 L 144/67 07/08/21 07:00 102 H 9 L 139/79 07/08/21 06:00 104 H 20 145/61 96 07/08/21 05:00 105 H 26 H 113/73 07/08/21 04:00 110 H 21 124/53 07/08/21 03:00 106 H 23 151/56 07/08/21 02:00 105 H 15 129/61 07/08/21 01:00 101 H 19 127/59 97 07/08/21 00:00 100 17 110/65 07/07/21 23:00 105 H 19 129/58 07/07/21 22:00 99.0 F 107 H 23 128/56 07/07/21 21:00 125/115 07/07/21 20:00 122 H 23 146/93 07/07/21 19:27 100.1 F H 120 H 17 173/79 97 07/07/21 19:00 118 H 23 173/96 07/07/21 18:00 156/82 Results CBC & Chem 7: 07/08/21 02:07 07/08/21 14:44 Labs: Abnormal Lab Results - Last 24 Hours (Table) 07/07/21 07/07/21 07/07/21 Range/Units 16:36 18:47 18:47 WBC 29.3 H (3.8-10.6) k/uL RDW 16.5 H (11.5-15.5) % Neutrophils # (Manual) 26.08 H (1.3-7.7) k/uL Monocytes # (Manual) 1.47 H (0-1.0) k/uL Potassium 6.2 H* (3.5-5.1) mmol/L Chloride 109 H (98-107) mmol/L Carbon Dioxide 19 L (22-30) mmol/L BUN 50 H (9-20) mg/dL Creatinine 2.14 H (0.66-1.25) mg/dL Glucose 168 H (74-99) mg/dL AST 85 H (17-59) U/L Troponin I 0.040 H* (0.000-0.034) ng/mL Urine Protein (Negative) Urine Ketones (Negative) Urine Blood (Negative) Ur Leukocyte Esterase (Negative) Urine WBC (0-5) /hpf Urine Bacteria (None) /hpf Urine Mucus (None) /hpf Urine Opiates Screen (NotDetected) U Benzodiazepines Scrn (NotDetected) 07/07/21 07/07/21 07/07/21 Range/Units 19:18 20:13 22:20 WBC (3.8-10.6) k/uL RDW (11.5-15.5) % Neutrophils # (Manual) (1.3-7.7) k/uL Monocytes # (Manual) (0-1.0) k/uL Potassium 5.4 H (3.5-5.1) mmol/L Chloride (98-107) mmol/L Carbon Dioxide (22-30) mmol/L BUN (9-20) mg/dL Creatinine (0.66-1.25) mg/dL Glucose (74-99) mg/dL AST (17-59) U/L Troponin I 0.062 H* (0.000-0.034) ng/mL Urine Protein 1+ H (Negative) Urine Ketones Trace H (Negative) Urine Blood Moderate H (Negative) Ur Leukocyte Esterase Moderate H (Negative) Urine WBC 12 H (0-5) /hpf Urine Bacteria Rare H (None) /hpf Urine Mucus Rare H (None) /hpf Urine Opiates Screen Detected H (NotDetected) U Benzodiazepines Scrn Detected H (NotDetected) 07/08/21 07/08/21 07/08/21 Range/Units 02:07 02:07 02:07 WBC 32.4 H (3.8-10.6) k/uL RDW 16.5 H (11.5-15.5) % Neutrophils # (Manual) (1.3-7.7) k/uL Monocytes # (Manual) (0-1.0) k/uL Potassium (3.5-5.1) mmol/L Chloride 108 H (98-107) mmol/L Carbon Dioxide 20 L (22-30) mmol/L BUN 50 H (9-20) mg/dL Creatinine 2.16 H (0.66-1.25) mg/dL Glucose 100 H (74-99) mg/dL AST (17-59) U/L Troponin I 0.071 H* (0.000-0.034) ng/mL Urine Protein (Negative) Urine Ketones (Negative) Urine Blood (Negative) Ur Leukocyte Esterase (Negative) Urine WBC (0-5) /hpf Urine Bacteria (None) /hpf Urine Mucus (None) /hpf Urine Opiates Screen (NotDetected) U Benzodiazepines Scrn (NotDetected) 07/08/21 Range/Units 08:43 WBC (3.8-10.6) k/uL RDW (11.5-15.5) % Neutrophils # (Manual) (1.3-7.7) k/uL Monocytes # (Manual) (0-1.0) k/uL Potassium (3.5-5.1) mmol/L Chloride 109 H (98-107) mmol/L Carbon Dioxide 21 L (22-30) mmol/L BUN 49 H (9-20) mg/dL Creatinine 1.88 H (0.66-1.25) mg/dL Glucose 208 H (74-99) mg/dL AST (17-59) U/L Troponin I (0.000-0.034) ng/mL Urine Protein (Negative) Urine Ketones (Negative) Urine Blood (Negative) Ur Leukocyte Esterase (Negative) Urine WBC (0-5) /hpf Urine Bacteria (None) /hpf Urine Mucus (None) /hpf Urine Opiates Screen (NotDetected) U Benzodiazepines Scrn (NotDetected) Microbiology - Last 24 Hours (Table) 07/07/21 19:18 Urine Culture - Preliminary Urine,Voided
[2021-07-09] MEDS: PANTOPRAZOLE 40 MG TABLET PO SCH (07:34)
[2021-07-09] MEDS: GABAPENTIN 300 MG CAP PO SCH ×2 (07:34→22:16)
[2021-07-09] MEDS: APIXABAN 5 MG TAB PO SCH ×2 (07:34→22:15)
[2021-07-09] MEDS: CALCIUM CARBONATE 500 MG CHEWABLE PO SCH ×2 (07:34→22:16)
[2021-07-09] MEDS: METOPROLOL TARTRATE 50 MG TAB PO SCH ×2 (07:34→22:15)
[2021-07-09] MEDS: MULTIVITAMINS, THERA 1 EACH TAB PO SCH (07:34)
[2021-07-09] MEDS: MAGNESIUM OXIDE 400 MG TAB PO SCH (07:34)
[2021-07-09] MEDS ORDERED: cefTRIAXone 1,000 MG VIAL (IM USE) IM SCH (09:00)
--- NOTE | 2021-07-09 09:17 | P.PN ---
Subjective Patient is seen in follow-up for acute kidney injury on chronic kidney disease. Renal function improving as of yesterday. Morning labs pending. Has been voiding. No chest pain or shortness of breath. Oral intake fair. Hemodynamically stable. Vital signs are stable. HEENT: Head exam is unremarkable. LUNGS: Breath sounds decreased. HEART: Rate and Rhythm are regular. ABDOMEN: Soft, no distention. EXTREMITITES: No edema. Objective - Vital Signs Vital signs: Vital Signs Temp 98.5 F 07/09/21 02:36 Pulse 71 07/09/21 02:36 Resp 16 07/09/21 02:36 BP 109/64 07/09/21 02:36 Pulse Ox 95 07/09/21 02:36 Intake & Output 07/08/21 07/09/21 07/09/21 18:59 06:59 18:59 Intake Total 450 Balance 450 Weight 77.111 kg Intake: Intake, IV Titration 450 Amount Sodium Chloride 0.9% 1, 450 000 ml @ 75 mls/hr IV . [id number] [facility] Rx#:[id number] Other: Voiding Method Urinal # Voids 2 - Labs CBC & Chem 7: 07/08/21 02:07 07/08/21 14:44 Labs: Abnormal Lab Results - Last 24 Hours (Table) 07/08/21 07/08/21 Range/Units 08:43 21:14 Chloride 109 H (98-107) mmol/L Carbon Dioxide 21 L (22-30) mmol/L BUN 49 H (9-20) mg/dL Creatinine 1.88 H (0.66-1.25) mg/dL Glucose 208 H (74-99) mg/dL POC Glucose (mg/dL) 140 H (75-99) mg/dL Microbiology - Last 24 Hours (Table) 07/07/21 19:18 Urine Culture - Preliminary Urine,Voided Gram Neg Bacilli 07/07/21 19:50 Blood Culture - Preliminary Blood No Growth after 24 hours 07/07/21 20:05 Blood Culture - Preliminary Blood No Growth after 24 hours Assessment and Plan Plan: Assessment: 1. Acute kidney injury secondary to ATN from poor intake and Bactrim. Creatinine peaked at 2.16 this admission - 1.88 yesterday. No evidence of hydronephrosis noted on ultrasound. 2. Hyperkalemia secondary to acute kidney injury, Bactrim and metabolic a cidosis. Improved with medical management. 3. Diabetes mellitus. 4. Chronic kidney disease stage IIIB with baseline creatinine near 1.5 secondary to diabetic kidney disease. 5. UTI. Urine culture positive for gram-negative bacilli. On antibiotics. 6. Metabolic acidosis secondary to acute kidney injury and IV fluids. Plan: Maintain IV fluids. Follow-up cultures. Avoid nephrotoxins. Continue to monitor renal function and urine output. Follow-up morning labs.
[2021-07-09 09:18] LABS: HCT 35.9 % (39.6-50.0); HGB 11.2 g/dL (13.0-17.0); MCH 28.8 pg (27.0-32.0); MCHC 31.2 g/dL (32.0-37.0); MCV 92.3 fL (80.0-97.0); Mean Platelet Volume 12.2 fL (9.5-12.2); Platelet Count 186 X 10*3/uL (140-440); RBC 3.89 X 10*6/uL (4.40-5.60)
[2021-07-09] MEDS: SODIUM CHLORIDE 0.9% 1,000 ML IV SCH (09:53)
[2021-07-09 10:14] LABS: African American GFR (CKD) 55.4 (60.0-200.0); BUN/Creat Ratio 25.21 Ratio (12.00-20.00); Basophils # (A) 0.03 X 10*3/uL (0.00-0.10); Basophils % (A) 0.2 %; Blood Urea Nitrogen 35.3 mg/dL (9.0-27.0); Calcium 8.5 mg/dL (8.7-10.3); Eosinophils # (A) 0.03 X 10*3/uL (0.04-0.35); Eosinophils % (A) 0.2 %; Lymphocytes # (A) 1.04 X 10*3/uL (0.90-5.00); Lymphocytes % (A) 6.4 %; Magnesium 1.7 mg/dL (1.5-2.4); Monocytes # (A) 1.93 X 10*3/uL (0.20-1.00); Monocytes % (A) 11.8 %; Neutrophils # (A) 12.96 X 10*3/uL (1.80-7.70); Neutrophils % (A) 79.5 %; Non-African American GFR(CKD) 47.8 (60.0-200.0); Potassium 4.6 mmol/L (3.5-5.5)
--- NOTE | 2021-07-09 12:40 | ECHOF ---
Referral Reason:SEPSIS MEASUREMENTS -------- HEIGHT: 188.0 cm WEIGHT: 77.1 kg BP: IVSd: 1.1 cm (0.6 - 1.1) LVIDd: 3.0 cm (3.9 - 5.3) LVPWd: 1.5 cm (0.6 - 1.1) IVSs: 1.7 cm LVIDs: 1.7 cm LVPWs: 1.7 cm Ao Diam: 3.5 cm (2.0 - 3.7) LA Diam: 1.4 cm (2.7 - 3.8) MV E Edward: 0.49 m/s MV DecT: 227 ms MV A Edward: 0.33 m/s MV E/A Ratio: 1.46 FINDINGS -------- This was a technically difficult study with suboptimal views. The left ventricular size is normal. There is mild concentric left ventricular hypertrophy. Overa ll left ventricular systolic function is normal with, an EF between 55 - 60 %. The RV was not well visualized. The left atrium was not well visualized. The right atrium was not well visualized. The aortic valve was not well visualized. The mitral valve was not well visualized. The tricuspid valve was not well visualized. The pulmonic valve was not well visualized. There is no pericardial effusion. CONCLUSIONS -------- 1. The left ventricular size is normal. 2. There is mild concentric left ventricular hypertrophy. 3. Overall left ventricular systolic function is normal with, an EF between 55 - 60 %. 4. There is no pericardial effusion. DUCT LAYER HELPER: Janae Taylor [facility]
--- NOTE | 2021-07-09 13:09 | CDI ---
Documentation Clarification Form Date: 07/09/2021 12:44:52 PM From: Maria Elena Crowell RN CCDS Admit Date: 07/07/2021 09:43:00 PM Patient Name: Ryan Lucas Visit Number: [id number] Discharge Date: ATTENTION: The Clinical Documentation Specialists (CDI) and [facility] Coding Staff appreciate your assistance in clarifying documentation. Please respond to the clarification below the line at the bottom and electronically sign. The CDI & [facility] Coding staff will review the response and follow-up if needed. Please note: Queries are made part of the Legal Health Record. If you have any questions, please contact the author of this message via ITS. Dr. Gisselle Campos Your patient has the documented symptom of Altered Mental Status 07/07, ED note. Additional clarification regarding the etiology/cause of this symptom is requested. History/Risk Factors: 72-year-old male presents to the ED with visual hallucinations and currently being treated for a UTI. Clinical Indicators: Labs: 07/07 Wbc 29.3, Neutrophils 26.08, Cr 2.14, CT Brain: 07/07 Cerebral atrophy. Urine Culture: 07/07 Gram Neg Bacilli Treatment: 07/07 to current 0.9NS IV 75cc/hr, 07/07 Rocephin 1,000mg IVP x 1, 07/08 Rocephin 1,000mg IVP x1, Ceftriaxone 1gm IVPB Q24HR. Please clarify the etiology of the symptom of Altered Mental Status: [ ] Metabolic Encephalopathy due to Sepsis and acute kidney failure [ ] Other condition (please specify) [ ] Unable to determine (Template Last Revised: October 2020) Metabolic Encephalopathy due to Sepsis and acute kidney failure MTDD
[2021-07-09] MEDS ORDERED: methocarbamoL 750 MG TAB PO PRN (14:19)
[2021-07-09] MEDS: HYDROcodone/APAP 7.5-325MG 1 EACH TAB PO PRN ×2 (14:26→22:25)
--- NOTE | 2021-07-09 18:35 | PN ---
PROGRESS NOTE DATE OF SERVICE: 07/09/2021 This 76-year-old gentleman who was admitted with acute UTI with sepsis continues to be confused. Patient also is suspected to have bilateral pneumonia. No chest pain. No palpitations. No fever. On the abdominal ultrasound, renal size was noted. Nephrology is also following the patient closely. Two-D echo with Doppler showed normal left ventricle and mild concentric hypertrophy, ejection fraction 55% to 60%. No pericardial effusion. The patient was seen by Infectious Disease. Patient was started on empiric antibiotic treatment. The patient had failed outpatient treatment. No chest pain. No palpitations. No fever. PHYSICAL EXAMINATION: Alert and oriented x2. Pulse 75, blood pressure 152/74, respiration 18, temperature 97.6, pulse ox 98% on 2 L. HEENT: Conjunctivae normal. NECK: No jugular venous distention. CARDIOVASCULAR: S1, S2 muffled. RESPIRATION: Breath sounds diminished at the bases. A few scattered rhonchi and crackles. ABDOMEN: Soft, nontender. NERVOUS SYSTEM: Diffusely weak. LABS: WBC 16.3, sodium 142, potassium 4.6. Troponin noted; indeterminate. ASSESSMENT: 1. Acute urinary tract infection with sepsis with failure of outpatient treatment. 2. Possible acute bilateral pneumonia. 3. Acute renal failure, acute tubular necrosis, dehydration. 4. Hyperkalemia secondary to renal failure. 5. Acute metabolic acidosis, multifactorial. 6. Troponin 0.043, indeterminate. 7. Increased white count, possibly secondary to sepsis. 8. History of right hemiplegia with contractures. 9. Gait dysfunction. 10.Diabetes mellitus, type 2. 11.Wound infection. 12.History of deep vein thrombosis. 13.History of degenerative joint disease. 14.History of left heel wound. 15.History of MRSA. 16.History of pacemaker. 17.History AICD. 18.Mild protein-calorie malnutrition, body mass index 20.7. 19.FULL CODE. RECOMMENDATIONS AND DISCUSSION: I recommend to continue current medications, continue with symptomatic treatment. Otherwise at this time I recommend continuing with the antibiotics. White count is improving at this time. PT/OT evaluation; possible ECF rehab. Closely follow with multiple consultants. Guarded prognosis. Further recommendations to follow. MMODL / IJN: [id number] /
[2021-07-09 20:30] LABS: Glucose,Whole Blood 225 mg/dL (75-99)
[2021-07-09] MEDS: INSULIN DETEMIR (LEVEMIR) 100 UNIT/ML SYR SQ SCH (22:16)
[2021-07-09] MEDS: TAMSULOSIN 0.4 MG CAP.ER.24H PO SCH (22:16)
[2021-07-09] MEDS: ATORVASTATIN 10 MG TAB PO SCH (22:16)
[2021-07-09] MEDS: DOXAZOSIN 4 MG TAB PO SCH (22:16)
[2021-07-10] MEDS: SODIUM CHLORIDE 0.9% 1,000 ML IV SCH ×2 (04:44→17:43)
[2021-07-10] MEDS: HYDROcodone/APAP 7.5-325MG 1 EACH TAB PO PRN ×2 (06:09→19:31)
[2021-07-10 07:17] LABS: Glucose,Whole Blood 71 mg/dL (75-99)
[2021-07-10 07:37] LABS: Glucose,Whole Blood 75 mg/dL (75-99)
[2021-07-10 07:53] LABS: Glucose,Whole Blood 81 mg/dL (75-99)
[2021-07-10] MEDS: PANTOPRAZOLE 40 MG TABLET PO SCH (07:56)
[2021-07-10] MEDS: GABAPENTIN 300 MG CAP PO SCH ×2 (07:56→20:49)
[2021-07-10] MEDS: MAGNESIUM OXIDE 400 MG TAB PO SCH (07:56)
[2021-07-10] MEDS: CALCIUM CARBONATE 500 MG CHEWABLE PO SCH ×2 (07:56→20:48)
[2021-07-10] MEDS: METOPROLOL TARTRATE 50 MG TAB PO SCH ×2 (07:56→20:48)
[2021-07-10] MEDS: MULTIVITAMINS, THERA 1 EACH TAB PO SCH (07:56)
[2021-07-10] MEDS: APIXABAN 5 MG TAB PO SCH ×2 (07:56→20:49)
[2021-07-10 08:42] LABS: African American GFR (CKD) 83 (>60 ml/min/1.73 sqM); Anion Gap 10 mmol/L; Blood Urea Nitrogen 28 mg/dL (9-20); Calcium 8.6 mg/dL (8.4-10.2); Carbon Dioxide 20 mmol/L (22-30); Chloride 107 mmol/L (98-107); Glucose 86 mg/dL (74-99); Magnesium 1.4 mg/dL (1.6-2.3); Non-African American GFR(CKD) 72 (>60 ml/min/1.73 sqM); Potassium 4.8 mmol/L (3.5-5.1); Sodium 137 mmol/L (137-145)
--- NOTE | 2021-07-10 09:20 | P.PN ---
Subjective Patient is seen in follow-up for acute kidney injury on chronic kidney disease. Renal function improved - creatinine 1.0 today. Has been voiding. No chest pain or shortness of breath. Oral intake fair. Hemodynamically stable. Vital signs are stable. HEENT: Head exam is unremarkable. LUNGS: Breath sounds decreased. HEART: Rate and Rhythm are regular. ABDOMEN: Soft, no distention. EXTREMITITES: No edema. Objective - Vital Signs Vital signs: Vital Signs Temp 97.8 F 07/10/21 07:42 Pulse 93 07/10/21 07:42 Resp 16 07/10/21 07:42 BP 155/59 07/10/21 07:42 Pulse Ox 98 07/10/21 07:42 Intake & Output 07/09/21 07/10/21 07/10/21 18:59 06:59 18:59 Output Total 600 700 Balance -600 -700 Output: Urine 600 700 Other: Voiding Method External Catheter # Bowel Movements 1 - Labs CBC & Chem 7: 07/09/21 06:35 07/10/21 05:47 Labs: Abnormal Lab Results - Last 24 Hours (Table) 07/09/21 07/09/21 07/09/21 Range/Units 06:35 06:35 20:28 WBC 16.30 H (4.50-10.00) X 10*3/uL RBC 3.89 L (4.40-5.60) X 10*6/uL Hgb 11.2 L (13.0-17.0) g/dL Hct 35.9 L (39.6-50.0) % MCHC 31.2 L (32.0-37.0) g/dL RDW 18.0 H (11.5-14.5) % Immature Gran # 0.31 H (0.00-0.04) X 10*3/uL Neutrophils # 12.96 H (1.80-7.70) X 10*3/uL Monocytes # 1.93 H (0.20-1.00) X 10*3/uL Eosinophils # 0.03 L (0.04-0.35) X 10*3/uL Chloride 112 H (96-109) mmol/L Carbon Dioxide 20.0 L (21.6-31.8) mmol/L BUN 35.3 H (9.0-27.0) mg/dL Est GFR (CKD-EPI)AfAm 55.4 L (60.0-200.0) Est GFR (CKD-EPI)NonAf 47.8 L (60.0-200.0) BUN/Creatinine Ratio 25.21 H (12.00-20.00) Ratio POC Glucose (mg/dL) 225 H (75-99) mg/dL Calcium 8.5 L (8.7-10.3) mg/dL Magnesium (1.6-2.3) mg/dL 07/10/21 07/10/21 Range/Units 05:47 07:15 WBC (4.50-10.00) X 10*3/uL RBC (4.40-5.60) X 10*6/uL Hgb (13.0-17.0) g/dL Hct (39.6-50.0) % MCHC (32.0-37.0) g/dL RDW (11.5-14.5) % Immature Gran # (0.00-0.04) X 10*3/uL Neutrophils # (1.80-7.70) X 10*3/uL Monocytes # (0.20-1.00) X 10*3/uL Eosinophils # (0.04-0.35) X 10*3/uL Chloride (96-109) mmol/L Carbon Dioxide 20 L (21.6-31.8) mmol/L BUN 28 H (9.0-27.0) mg/dL Est GFR (CKD-EPI)AfAm (60.0-200.0) Est GFR (CKD-EPI)NonAf (60.0-200.0) BUN/Creatinine Ratio (12.00-20.00) Ratio POC Glucose (mg/dL) 71 L (75-99) mg/dL Calcium (8.7-10.3) mg/dL Magnesium 1.4 L (1.6-2.3) mg/dL Microbiology - Last 24 Hours (Table) 07/07/21 19:50 Blood Culture - Preliminary Blood No Growth after 48 hours 07/07/21 20:05 Blood Culture - Preliminary Blood No Growth after 48 hours 07/07/21 19:18 Urine Culture - Final Urine,Voided Proteus mirabilis Assessment and Plan Plan: Assessment: 1. Acute kidney injury secondary to ATN from poor intake and Bactrim. Creatinine peaked at 2.16 this admission - 1.0 today. No evidence of hydroneph rosis noted on ultrasound. 2. Hyperkalemia secondary to acute kidney injury, Bactrim and metabolic acidosis. Improved with medical management. 3. Diabetes mellitus. 4. Chronic kidney disease stage IIIB with baseline creatinine near 1-1.5 secondary to diabetic kidney disease. 5. UTI. Urine culture positive for Proteus. On antibiotics. 6. Metabolic acidosis secondary to acute kidney injury and IV fluids. 7. Hypomagnesemia from poor intake. Plan: Decrease rate of normal saline to 50 mL an hour. Encourage oral intake. Avoid nephrotoxins. Continue to monitor renal function and urine output. Replace magnesium.
[2021-07-10] MEDS: MAGNESIUM SULFATE-D5W PMX 1 GM in DEXTROSE/WATER 1 100ML.BAG IVPB SCH ×2 (09:59→11:16)
[2021-07-10 11:37] LABS: Glucose,Whole Blood 119 mg/dL (75-99)
[2021-07-10 13:20] VITALS: BMI 20.7
[2021-07-10 16:55] LABS: Glucose,Whole Blood 199 mg/dL (75-99)
--- NOTE | 2021-07-10 17:58 | PN ---
PROGRESS NOTE DATE OF SERVICE: 07/10/2021 This 76-year-old gentleman who was admitted with acute UTI with sepsis with failure of outpatient treatment is being closely monitored. No chest pain. No palpitations. No fever. The patient is mildly confused. On exam, alert and oriented x2. Pulse 80, blood pressure 158/70, respirations 17, temperature 98.1, pulse ox 99% on 2 L. HEENT: Conjunctivae normal. NECK: No jugular venous distention. CARDIOVASCULAR: S1, S2 muffled. RESPIRATION: Breath sounds diminished at the bases. A few scattered rhonchi. ABDOMEN: Soft. NERVOUS SYSTEM: No focal deficit. Labs show WBC 16.2, hemoglobin 11.2. Otherwise, culture showed Proteus mirabilis which is sensitive to ceftriaxone. ASSESSMENT: 1. Acute urinary tract infection with Proteus mirabilis with sepsis with failure of outpatient treatment. 2. Possible acute bilateral pneumonia. 3. Acute renal failure with acute tubular necrosis and dehydration, present on admission. 4. Hyperkalemia secondary to renal failure. 5. Acute metabolic acidosis, multifactorial. 6. Troponin 0.043, indeterminate. 7. Increased white count, possibly secondary to sepsis. 8. History of right hemiplegia with contractures. 9. Gait dysfunction. 10.Diabetes mellitus, type 2. 11.Wound infection. 12.History of deep vein thrombosis. 13.History of degenerative joint disease. 14.History of left heel wound. 15.History of MRSA. 16.History of pacemaker. 17.History of AICD. 18.Mild protein-calorie malnutrition with body mass index of 20.7. 19.FULL CODE. RECOMMENDATIONS AND DISCUSSION: I recommend to continue current medications, continue with symptomatic treatment. Repeat labs. Continue with antibiotics. PT/OT evaluation. Consider ECF rehab and social work evaluation. Guarded prognosis. Further recommendations to follow. MMODL / IJN: [id number] /
[2021-07-10] MEDS: LORazepam 2 MG/ML INJ IV PRN (19:30)
[2021-07-10] MEDS: ATORVASTATIN 10 MG TAB PO SCH (20:48)
[2021-07-10] MEDS: DOXAZOSIN 4 MG TAB PO SCH (20:49)
[2021-07-10 21:00] LABS: Glucose,Whole Blood 227 mg/dL (75-99)
[2021-07-10] MEDS ORDERED: QUEtiapine 25 MG TAB PO SCH (21:00)
[2021-07-10] MEDS: INSULIN DETEMIR (LEVEMIR) 100 UNIT/ML SYR SQ SCH (21:05)
[2021-07-10] MEDS: TAMSULOSIN 0.4 MG CAP.ER.24H PO SCH (21:05)
--- NOTE | 2021-07-10 22:31 | PN ---
PROGRESS NOTE DATE OF SERVICE: 07/10/2021 REASON FOR FOLLOWUP: Urinary tract infection. INTERVAL HISTORY: The patient is afebrile. The patient is currently breathing comfortably. The patient is hemodynamically stable. Denies any chest pain, shortness of breath or cough. No abdominal pain or diarrhea. PHYSICAL EXAMINATION: Blood pressure 158/70 with a pulse of 80, temperature 98.1. General description is an elderly male lying in bed in no distress. RESPIRATORY SYSTEM: Unlabored breathing. Clear to auscultation anteriorly. HEART: S1, S2. Regular rate and rhythm. ABDOMEN: Soft. No tenderness. LABS: Urine has been finalized with Proteus, a sensitive pathogen. Blood culture has been negative. DIAGNOSTIC IMPRESSION AND PLAN: Patient with urinary tract infection. Urine has been finalized with Proteus, covered with Rocephin. Finishing therapy with oral Ceftin and close outpatient followup. MMODL / IJN: [id number] /
[2021-07-11 06:59] LABS: Glucose,Whole Blood 66 mg/dL (75-99)
[2021-07-11 07:07] VITALS: RESP 16
[2021-07-11 07:10] LABS: African American GFR (CKD) 67 (>60 ml/min/1.73 sqM); Anion Gap 5 mmol/L; Blood Urea Nitrogen 23 mg/dL (9-20); Calcium 8.5 mg/dL (8.4-10.2); Carbon Dioxide 27 mmol/L (22-30); Chloride 106 mmol/L (98-107); Glucose 63 mg/dL (74-99); Magnesium 1.8 mg/dL (1.6-2.3); Non-African American GFR(CKD) 58 (>60 ml/min/1.73 sqM); Potassium 4.5 mmol/L (3.5-5.1); Sodium 138 mmol/L (137-145)
[2021-07-11 07:23] LABS: Glucose,Whole Blood 85 mg/dL (75-99)
[2021-07-11] MEDS: HYDROcodone/APAP 7.5-325MG 1 EACH TAB PO PRN ×2 (07:45→15:54)
[2021-07-11 09:06] LABS: Basophils # (A) 0.02 X 10*3/uL (0.00-0.10); Basophils % (A) 0.2 %; Eosinophils # (A) 0.11 X 10*3/uL (0.04-0.35); Eosinophils % (A) 1.1 %; HGB 10.1 g/dL (13.0-17.0); Lymphocytes # (A) 1.31 X 10*3/uL (0.90-5.00); Lymphocytes % (A) 13.3 %; MCH 28.5 pg (27.0-32.0); MCHC 31.6 g/dL (32.0-37.0); MCV 90.1 fL (80.0-97.0); Mean Platelet Volume 12.1 fL (9.5-12.2); Monocytes # (A) 1.69 X 10*3/uL (0.20-1.00); Monocytes % (A) 17.2 %; Neutrophils # (A) 6.64 X 10*3/uL (1.80-7.70); Neutrophils % (A) 67.4 %; Platelet Count 187 X 10*3/uL (140-440); RBC 3.55 X 10*6/uL (4.40-5.60); RDW 17.2 % (11.5-14.5); WBC 9.85 X 10*3/uL (4.50-10.00)
[2021-07-11] MEDS: APIXABAN 5 MG TAB PO SCH (09:18)
[2021-07-11] MEDS: METOPROLOL TARTRATE 50 MG TAB PO SCH (09:21)
[2021-07-11] MEDS: MAGNESIUM OXIDE 400 MG TAB PO SCH (09:24)
[2021-07-11] MEDS: MULTIVITAMINS, THERA 1 EACH TAB PO SCH (09:24)
[2021-07-11] MEDS: GABAPENTIN 300 MG CAP PO SCH (09:24)
[2021-07-11] MEDS: PANTOPRAZOLE 40 MG TABLET PO SCH (09:26)
[2021-07-11] MEDS: CALCIUM CARBONATE 500 MG CHEWABLE PO SCH (09:39)
--- NOTE | 2021-07-11 10:37 | P.PN ---
Subjective Patient is seen in follow-up for acute kidney injury on chronic kidney disease. Renal function is fairly stable. Has been voiding. No chest pain or shortness of breath. Oral intake fair. Hemodynamically stable. No changes overnight. Vital signs are stable. HEENT: Head exam is unremarkable. LUNGS: Breath sounds decreased. HEART: Rate and Rhythm are regular. ABDOMEN: Soft, no distention. EXTREMITITES: No edema. Objective - Vital Signs Vital signs: Vital Signs Temp 98.6 F 07/11/21 07:06 Pulse 90 07/11/21 07:06 Resp 16 07/11/21 07:06 BP 148/64 07/11/21 07:06 Pulse Ox 94 L 07/11/21 07:06 Intake & Output 07/10/21 07/11/21 07/11/21 18:59 06:59 18:59 Intake Total 400 236 Output Total 300 Balance 400 -300 236 Weight 77.111 kg Intake: Oral 400 236 Output: Urine 300 Other: Voiding Method External Catheter Incontinent Incontinent # Voids 3 - Labs CBC & Chem 7: 07/11/21 05:35 07/11/21 05:35 Labs: Abnormal Lab Results - Last 24 Hours (Table) 07/10/21 07/10/21 07/10/21 Range/Units 11:35 16:53 20:59 RBC (4.40-5.60) X 10*6/uL Hgb (13.0-17.0) g/dL Hct (39.6-50.0) % MCHC (32.0-37.0) g/dL RDW (11.5-14.5) % Immature Gran # (0.00-0.04) X 10*3/uL Monocytes # (0.20-1.00) X 10*3/uL BUN (9-20) mg/dL Glucose (74-99) mg/dL POC Glucose (mg/dL) 119 H 199 H 227 H (75-99) mg/dL 07/11/21 07/11/21 07/11/21 Range/Units 05:35 05:35 06:58 RBC 3.55 L (4.40-5.60) X 10*6/uL Hgb 10.1 L (13.0-17.0) g/dL Hct 32.0 L (39.6-50.0) % MCHC 31.6 L (32.0-37.0) g/dL RDW 17.2 H (11.5-14.5) % Immature Gran # 0.08 H (0.00-0.04) X 10*3/uL Monocytes # 1.69 H (0.20-1.00) X 10*3/uL BUN 23 H (9-20) mg/dL Glucose 63 L (74-99) mg/dL POC Glucose (mg/dL) 66 L (75-99) mg/dL Microbiology - Last 24 Hours (Table) 07/07/21 19:50 Blood Culture - Preliminary Blood No Growth after 72 hours 07/07/21 20:05 Blood Culture - Preliminary Blood No Growth after 72 hours Assessment and Plan Plan: Assessment: 1. Acute kidney injury secondary to ATN from poor intake and Bactrim. Creatinine peaked at 2.16 this admission - 1.19 today. No evidence of hydronephrosis noted on ultrasound. 2. Hyperkalemia secondary to acute kidney injury, Bactrim and metabolic acidosis. Improved with medical management. 3. Diabetes mellitus. 4. Chronic kidney disease stage IIIB with baseline creatinine near 1-1.5 secondary to diabetic kidney disease. 5. UTI. Urine culture positive for Proteus. On antibiotics. 6. Metabolic acidosis secondary to acute kidney injury and IV fluids. 7. Hypomagnesemia from poor intake. Replaced. Better. Plan: Hep-Lock IV fluids. Encouraged oral intake. Avoid nephrotoxins. Continue to monitor renal function and urine output.
[2021-07-11 11:37] LABS: Glucose,Whole Blood 144 mg/dL (75-99)
[2021-07-11 11:51] VITALS: BP 100/65; PULSE 77; TEMP 98.1
[2021-07-11] MEDS: SODIUM CHLORIDE 0.9% 1,000 ML IV SCH (14:24)
--- NOTE | 2021-07-11 14:25 | P.DS ---
Providers Date of admission: 07/07/21 21:43 Expected date of discharge: 07/11/21 Attending physician: Gisselle Campos Consults: 07/07/21 20:42 Consult Physician Routine Consulting Provider: Pietro Mays Consult Reason/Comments: arf with hyperkalemia Do you want consulting provider notified?: Yes 07/07/21 21:45 Consult Physician Urgent Consulting Provider: Pablito Lynne Consult Reason/Comments: recurrent uti with sepsis Do you want consulting provider notified?: Yes Primary care physician: Karina Camarillo Hospital Course: Final diagnosis Acute urinary tract infection with Proteus mirabilis with sepsis with failure of outpatient treatment Possible acute bilateral pneumonia Acute renal failure with acute tubular necrosis and dehydration, present on admission Hyperkalemia secondary to renal failure Acute and about acidosis, multifactorial Troponin 0.043, indeterminate Increased white count, possibly secondary to sepsis History of right hemiplegia with contractures Gait dysfunction diabetes mellitus type 2 Wound infection History of DVT history of degenerative joint disease history of left heel wound History of MRSA history pacemaker history of AICD mild protein calorie malnutrition with a body mass index of 20.7 Full code Discharge disposition Patient is being discharged in a stable condition with guarded prognosis to [facility] for continued PT/OT therapy. Patient will follow-up with Dr. Lau in the outpatient setting upon discharge. Patient is to continue on oral Ceftin 500 mg twice daily for the next 7 days and then may discontinue. Patient is to follow-up with infectious disease outpatient. Total time taken is greater than 35 minutes. Hospital course This is a 76-year-old male who was recently admitted with acute urinary tract infection with sepsis with failure of outpatient treatment and being closely monitored. Patient was seen and evaluated by infectious disease and maintained on IV antibiotics and we'll transition to oral Ceftin 500 mg twice daily for the next 1 week to complete the course. Patient will need follow-up with Dr. Lynne outpatient along with following up with his primary care provider Dr. Camarillo once discharged from [facility]. Currently no reports of chest pain, shortness of breath, or palpitations. Patient is afebrile. No reports of nausea or vomiting and patient is tolerating diet. Patient will be going to [facility] today. On exam vital signs are stable. Cardio S1, S2 are muffled. Respiratory system shows diminished breath sounds at the bases with no wheezing or rhonchi noted. Abdomen is soft and nontender. Nervous system shows diffuse weakness. Please refer to medication reconciliation sheet for a list of medications. Patient Condition at Discharge: Stable Plan - Discharge Summary New Discharge Prescriptions: New Cefuroxime Axetil [Ceftin] 500 mg PO BID 7 Days #14 tab Acetaminophen Tab [Tylenol] 650 mg PO Q6HR PRN tab PRN Reason: Mild Pain Or Fever > 100.5 QUEtiapine [SEROquel] 25 mg PO HS tab Continue Atorvastatin [Lipitor] 10 mg PO HS Apixaban [Eliquis] 5 mg PO BID 90 Days #180 tab Multivitamins, Thera [Multivitamin (formulary)] 1 tab PO DAILY Magnesium Oxide 400 mg PO DAILY Metoprolol Tartrate [Lopressor] 50 mg PO BID Doxazosin [Cardura] 4 mg PO HS HYDROcodone/APAP 7.5-325MG [Terreton 7.5-325] 1 tab PO Q8H PRN #6 tab PRN Reason: Pain Tamsulosin HCl [Flomax] 0.4 mg PO HS Docusate [Colace] 100 mg PO DAILY PRN PRN Reason: Constipation Calcium Carbonate [Calcium] 600 mg PO BID Omeprazole 20 mg PO DAILY Insulin Glargine,Hum.rec.anlog [Basaglar Kwikpen U-100] 8 unit SQ HS Gabapentin [Neurontin] 300 mg PO BID #6 cap Discontinued methocarbamoL [Robaxin] 750 mg PO Q8H PRN PRN Reason: Muscle Spasm Sulfamethox-Tmp 800-160Mg [Bactrim DS 800-160 mg] 1 tab PO Q12H Discharge Medication List Atorvastatin [Lipitor] 10 mg PO HS 10/29/18 [History] Apixaban [Eliquis] 5 mg PO BID 90 Days #180 tab 10/31/18 [Rx] Multivitamins, Thera [Multivitamin (formulary)] 1 tab PO DAILY 05/08/20 [History] Calcium Carbonate [Calcium] 600 mg PO BID 07/07/21 [History] Docusate [Colace] 100 mg PO DAILY PRN 07/07/21 [History] Doxazosin [Cardura] 4 mg PO HS 07/07/21 [History] Insulin Glargine,Hum.rec.anlog [Basaglar Kwikpen U-100] 8 unit SQ HS 07/07/21 [History] Magnesium Oxide 400 mg PO DAILY 07/07/21 [History] Metoprolol Tartrate [Lopressor] 50 mg PO BID 07/07/21 [History] Omeprazole 20 mg PO DAILY 07/07/21 [History] Tamsulosin HCl [Flomax] 0.4 mg PO HS 07/07/21 [History] Acetaminophen Tab [Tylenol] 650 mg PO Q6HR PRN tab 07/11/21 [Rx] Cefuroxime Axetil [Ceftin] 500 mg PO BID 7 Days #14 tab 07/11/21 [Rx] Gabapentin [Neurontin] 300 mg PO BID #6 cap 07/11/21 [Rx] HYDROcodone/APAP 7.5-325MG [Terreton 7.5-325] 1 tab PO Q8H PRN #6 tab 07/11/21 [Rx] QUEtiapine [SEROquel] 25 mg PO HS tab 07/11/21 [Rx] Follow up Appointment(s)/Referral(s): Karina Camarillo DO [Primary Care Provider] - 1-2 days Pablito Lynne MD [STAFF PHYSICIAN] - 1 Week Activity/Diet/Wound Care/Special Instructions: Patient is going to [facility] Activity as tolerated Continue antibiotics for 7 days and then may discontinue Take medications as prescribed Continue heart healthy consistent carb diet Recommend Accu-Cheks before meals and at bedtime Recommend follow-up CBC and BMP in 2-3 days Continue with Opteform to the sacral area and frequent position changes Continue with Glucerna 3 times a day with meals, strawberry Follow-up primary care provider outpatient Discharge Disposition: TRANSFER TO SNF/ECF
--- NOTE | 2021-07-11 17:35 | PN ---
PROGRESS NOTE DATE OF SERVICE: 07/11/2021. REASON FOR FOLLOWUP: Proteus mirabilis urinary tract infection. INTERVAL HISTORY: Patient is afebrile. The patient is currently breathing comfortably. Denies any chest pain, shortness of breath or cough. No abdominal pain or diarrhea. PHYSICAL EXAMINATION: Blood pressure 100/65, pulse of 77, temperature 98.1. He is 93% on room air. General description is an elderly male lying in bed in no distress. Respiratory system: Unlabored breathing, clear to auscultation anteriorly. Heart S1, S2. Regular rate and rhythm. Abdomen soft, no tenderness. LABS: White count normalized to 9.85, creatinine is 1.19. Blood culture negative. DIAGNOSTIC IMPRESSION AND PLAN: Patient with Proteus mirabilis urinary tract infection. Overall improvement on Rocephin. Finish therapy with oral Ceftin 5 mg twice a day for about a week and close outpatient followup. MMODL / IJN: [id number] /
== END 2021-07-11 15:57 | DRG 871 ==
LOC: EC 16:09 → 4SSUR 21:43
PROVIDERS: ADMIT Hospitalist; ATTEND Hospitalist
DX: A41.59 Other Gram-negative sepsis (principal); G93.41 Metabolic encephalopathy; N17.0 Acute kidney failure with tubular necrosis; J18.9 Pneumonia, unspecified organism; N39.0 Urinary tract infection, site not specified; E44.1 Mild protein-calorie malnutrition; E87.2 Acidosis; I69.351 Hemiplegia and hemiparesis following cerebral infarction affecting right dominant side; J98.11 Atelectasis; R65.20 Severe sepsis without septic shock; B96.4 Proteus (mirabilis) (morganii) as the cause of diseases classified elsewhere; E11.22 Type 2 diabetes mellitus with diabetic chronic kidney disease; I12.9 Hypertensive chronic kidney disease with stage 1 through stage 4 chronic kidney disease, or unspecified chronic kidney disease; E83.42 Hypomagnesemia; E86.0 Dehydration; E87.5 Hyperkalemia; R77.8 Other specified abnormalities of plasma proteins; Z20.822 Contact with and (suspected) exposure to COVID-19; N18.32 Chronic kidney disease, stage 3b; R26.9 Unspecified abnormalities of gait and mobility; M19.90 Unspecified osteoarthritis, unspecified site; I45.10 Unspecified right bundle-branch block; T36.8X5A Adverse effect of other systemic antibiotics, initial encounter; Z79.4 Long term (current) use of insulin; Z60.2 Problems related to living alone; Z79.01 Long term (current) use of anticoagulants; Z79.899 Other long term (current) drug therapy; Z80.9 Family history of malignant neoplasm, unspecified; Z82.49 Family history of ischemic heart disease and other diseases of the circulatory system; Z86.14 Personal history of Methicillin resistant Staphylococcus aureus infection; Z86.718 Personal history of other venous thrombosis and embolism; Z87.440 Personal history of urinary (tract) infections; Z95.810 Presence of automatic (implantable) cardiac defibrillator; Z96.641 Presence of right artificial hip joint; Z98.49 Cataract extraction status, unspecified eye; Z98.890 Other specified postprocedural states; Z98.1 Arthrodesis status; Z68.20 Body mass index [BMI] 20.0-20.9, adult
CPT/HCPCS: 36415; 70450; 71046; 74176; 76770; 80048; 80053; 80143; 80179; 80306; 80320; 81001; 83605; 83735; 84132; 84443; 84484; 85025; 85610; 85730; 87040; 87077; 87086; 87186; 87635; 93005; 93306; 96372; 96374; 96375; 96376; 99285

== ENCOUNTER 2021-07-18 16:21 | Inpatient (IN) | payer MEDICARE, OTHER ==
[2021-07-18] MEDS ORDERED: HYDROcodone/APAP 7.5-325MG 1 EACH TAB PO ONE (17:58)
--- NOTE | 2021-07-18 18:00 | ED ---
General Adult HPI - General Chief complaint: Extremity Injury, Upper Stated complaint: R Hip Pain Time Seen by Provider: 07/18/21 16:49 Source: patient, EMS, RN notes reviewed Mode of arrival: EMS Limitations: no limitations - History of Present Illness Initial comments: 76-year-old male presents to the emergency department via EMS from [facility] for evaluation of right hip discomfort. States he had an X-ray that showed a fracture in his right hip, which was replaced several years ago. According to EMS and [facility] paperwork, patient was sent for further imaging. Patient denies any recent trauma, injury, or fall. States he does have a wound on his coccyx that is currently being treated. Patient denies any other complaints at this time. Denies fever, chills, headache, chest pain, difficulty breathing, abdominal pain, and bowel or bladder changes. - Related Data Home Medications Medication Instructions Recorded Confirmed RX: Atorvastatin [Lipitor] 10 mg PO HS@2100 10/29/18 07/18/21 RX: Multivitamins, Thera 1 tab PO DAILY@1700 05/08/20 07/18/21 [Multivitamin (formulary)] RX: Calcium Carbonate [Calcium] 600 mg PO BID@0800,1700 07/07/21 07/18/21 RX: Docusate [Colace] 100 mg PO DAILY PRN 07/07/21 07/18/21 RX: Doxazosin [Cardura] 4 mg PO HS@2100 07/07/21 07/18/21 RX: Insulin Glargine,Hum.rec.anlog 8 unit SQ HS@209907/07/21 07/18/21 [Basaglar Geri U-100] RX: Magnesium Oxide 400 mg PO DAILY@0800 07/07/21 07/18/21 RX: Metoprolol Tartrate [Lopressor] 50 mg PO BID@0800,1700 07/07/21 07/18/21 RX: Omeprazole 20 mg PO DAILY@0800 07/07/21 07/18/21 RX: Tamsulosin HCl [Flomax] 0.4 mg PO HS@2100 07/07/21 07/18/21 Cefuroxime Axetil [Ceftin] 500 mg PO BID@0800,1700 07/18/21 07/18/21 INSULIN LISPRO (humaLOG) [humaLOG] See Protocol SQ ACHS 07/18/21 07/18/21 Magnesium Hydroxide [Milk of 2,400 mg PO DAILY PRN 07/18/21 07/18/21 Magnesia] Na Phos,M-B/Na Phos,Di-Ba [Fleet 133 ml RECTAL DAILY PRN 07/18/21 07/18/21 Adult] RX: Apixaban [Eliquis] 5 mg PO BID@0800,1700 07/18/21 07/18/21 RX: Gabapentin [Neurontin] 300 mg PO BID@0800,2100 07/18/21 07/18/21 RX: Glucerna Shake 1 can PO TID@0800,1200,1700 07/18/21 07/18/21 RX: HYDROcodone/APAP 7.5-325MG 1 tab PO Q6H PRN 07/18/21 07/18/21 [Golden 7.5-325] RX: QUEtiapine [SEROquel] 25 mg PO HS@2100 07/18/21 07/18/21 bisacodyL [Dulcolax] 10 mg RECTAL DAILY PRN 07/18/21 07/18/21 Previous Rx's Medication Instructions Recorded RX: Acetaminophen Tab [Tylenol] 650 mg PO Q6HR PRN tab 07/11/21 Allergies Allergy/AdvReac Type Severity Reaction Status Date / Time No Known Allergies Allergy Verified 07/18/21 17:46 Review of Systems ROS Statement: Those systems with pertinent positive or pertinent negative responses have been documented in the HPI. ROS Other: All systems not noted in ROS Statement are negative. Past Medical History Past Medical History: CVA/TIA, Diabetes Mellitus, Deep Vein Thrombosis (DVT), Hypertension, Osteoarthritis (OA) Additional Past Medical History / Comment(s): current wound left heel. has dressing change 3x week, wound center patient, states has DVT x3 in rt leg, past hx of diabetes and HTN, no longer requires rx since weight loss. states TIA in 2010 residual muscle weakness in rt leg, wears brace rt leg History of Any Multi-Drug Resistant Organisms: MRSA Date of last positivie culture/infection: 02/08/19 MDRO Source:: left foot Past Surgical History: Back Surgery, Hernia Repair, Orthopedic Surgery, Pacemaker Additional Past Surgical History / Comment(s): cervical fusion, right hip replacement, cataract surgery Past Anesthesia/Blood Transfusion Reactions: No Reported Reaction Type of Cardiac Device: AICD, Unknown Device Placement Date:: May 2018 Past Psychological History: No Psychological Hx Reported Smoking Status: Never smoker Past Alcohol Use History: None Reported Past Drug Use History: None Reported - Past Family History Mother Family Medical History: Cancer Father Family Medical History: Cancer, Coronary Artery Disease (CAD) General Exam Limitations: no limitations General appearance: alert, in no apparent distress, other (This is a deconditioned male in no acute distress. Initial temperature of 98.2, pulse 78, respirations 18, blood pressure 131/55, pulse ox 95% on room air.) Neck exam: Present: normal inspection. Absent: tenderness, meningismus, lymphad enopathy Respiratory exam: Present: normal lung sounds bilaterally. Absent: respiratory distress, wheezes, rales, rhonchi, stridor Cardiovascular Exam: Present: regular rate, normal rhythm, normal heart sounds. Absent: systolic murmur, diastolic murmur, rubs, gallop, clicks GI/Abdominal exam: Present: soft, normal bowel sounds. Absent: distended, tenderness, guarding, rebound Left Hip exam: Present: normal inspection. Absent: tenderness, external rotation, internal rotation, shortening Neurovascular tendon exam: Present: no vascular compromise. Absent: pulse deficit, motor deficit, sensory deficit Right Hip exam: Present: normal inspection, tenderness (Point tenderness right upper outer gluteal aspect; nonradiating). Absent: external rotation, internal rotation, shortening Neurovascular tendon exam: Present: no vascular compromise. Absent: pulse deficit, abnormal cap refill Back exam: Present: normal inspection, other (Coccyx wound with clean, intact dressing dated today). Absent: paraspinal tenderness, vertebral tenderness Neurological exam: Present: alert, oriented X3 Psychiatric exam: Present: normal affect, normal mood Skin exam: Present: warm, dry, normal color Expanded 1 - unstageable wound on coccyx Course Vital Signs 07/18/21 07/18/21 16:36 18:08 Temperature 98.2 F Pulse Rate 78 92 Respiratory 18 18 Rate Blood Pressure 131/55 145/80 O2 Sat by Pulse 95 98 Oximetry - Reevaluation(s) Reevaluation #1: 07/18/21 17:59 Patient complains of persistent right hip and coccyx pain despite tends to reposition. According to [facility] medication reconciliation patient's last dose of Golden was at 6:20 this morning, therefore a dose will be administered here. Medical Decision Making - Medical Decision Making 76-year-old male with a history of right hip arthroplasty, recent hospitalization for urosepsis, and active coccyx wound presents to the emergency department for further imaging of the right hip. Physical exam is positive for point tenderness of the right upper outer aspect of the buttock. Wound to coccyx is unstageable with reddened base and brown sloughing; appears improved from photo taken during previous hospitalization. Clean, dry, intact dressing in place dated with today's date. Initial workup included a CT of the right hip which was negative for fracture, however, findings of soft tissue swelling in the posterior aspect of the right thigh merited further evaluation. These findings were discussed with my attending Dr. Philippe who recommended further imaging and laboratory studies. Labs revealed a normal white blood cell count, lactic acid within normal limits, hemoglobin of 11.4 is improved, and BUN 29 and is consistent for this patient. CT of the abdomen and pelvis with contrast showed increased density in the subcutaneous tissues over the posterior sacrum in the midline and towards the right side which is increased to compared to last exam consistent with phlegmon. No bone destruction seen to suggest osteomyelitis. This patient's case was discussed with my attending Dr. Wilson. Patient will be admitted for further wound evaluation and treatment. - Lab Data Result diagrams: 07/18/21 23:11 07/18/21 23:11 Lab Results 07/18/21 07/18/21 07/18/21 Range/Units 23:11 23:11 23:11 WBC 8.2 (3.8-10.6) k/uL RBC 4.06 L (4.30-5.90) m/uL Hgb 11.4 L (13.0-17.5) gm/dL Hct 37.4 L (39.0-53.0) % MCV 92.0 (80.0-100.0) fL MCH 28.2 (25.0-35.0) pg MCHC 30.6 L (31.0-37.0) g/dL RDW 15.9 H (11.5-15.5) % Plt Count 305 (150-450) k/uL MPV 9.3 Neutrophils % 69 % Lymphocytes % 16 % Monocytes % 9 % Eosinophils % 1 % Basophils % 1 % Neutrophils # 5.6 (1.3-7.7) k/uL Lymphocytes # 1.3 (1.0-4.8) k/uL Monocytes # 0.7 (0-1.0) k/uL Eosinophils # 0.1 (0-0.7) k/uL Basophils # 0.1 (0-0.2) k/uL Hypochromasia Slight Sodium 137 (137-145) mmol/L Potassium 5.1 (3.5-5.1) mmol/L Chloride 101 (98-107) mmol/L Carbon Dioxide 30 (22-30) mmol/L Anion Gap 6 mmol/L BUN 29 H (9-20) mg/dL Creatinine 1.24 (0.66-1.25) mg/dL Est GFR (CKD-EPI)AfAm 64 (>60 ml/min/1.73 sqM) Est GFR (CKD-EPI)NonAf 56 (>60 ml/min/1.73 sqM) Glucose 147 H (74-99) mg/dL Plasma Lactic Acid Jason 0.9 (0.7-2.0) mmol/L Calcium 8.3 L (8.4-10.2) mg/dL - Radiology Data Radiology results: report reviewed, image reviewed CT of the right hip without contrast was obtained. Report was reviewed in its entirety. Impression per Dr. Ontiveros is #1 no acute fracture or dislocation seen. Intact right hip arthroplasty. #2 superficial and deep soft tissue swelling in the posterior aspect of the right thigh extending to the gluteus region with fat stranding in the presacral space. Findings concerning for cellulitis, myositis with concern for pelvic extension. CT of the abdomen and pelvis with contrast was obtained. Report was reviewed in its entirety. Impression per Dr. Gonzalez is increased density in the subcutaneous tissues over the posterior sacrum in the midline and towards the right side is increased to compared to last exam consistent with phlegmon. No bone destruction seen to suggest osteomyelitis. There is air space consolidation in the right lower lobe with calcified pleural plaques similar to old exam there is some mild calcified pleural plaque in the left lower lobe unchanged. Disposition Clinical Impression: Decubitus ulcer of coccygeal region, unstageable, Hip pain, right Disposition: ADMITTED IP TO THIS HOSP Condition: Serious Referrals: Karina Camarillo DO [Primary Care Provider] - 1-2 days Decision Date: 07/19/21 Decision Time: 01:28
--- NOTE | 2021-07-18 20:05 | CT ---
EXAMINATION TYPE: CT hip RT wo con DATE OF EXAM: 07/18/2021 COMPARISON: 07/07/2021 HISTORY: right hip pain TECHNIQUE: CT scan of the right hip without contrast CT DLP: 660.8 mGycm Automated exposure control for dose reduction was used. FINDINGS: Complete right hip arthroplasty hardware is seen and appears intact. This hardware causes significant streak artifact limiting evaluation of the surrounding structures. There is marked osteopenia.There is no hip dislocation. No acute fracture or dislocation is seen. New bone formation is seen in the proximal femur likely relating to remote injury and postsurgical angelo es. Degenerative changes are seen in the sacroiliac joint on the right, the pubic symphysis and right hip joint. Extensive soft tissue swelling is seen in the right thigh posteriorly extending from the most inferio r part of the visualized right lower extremity and superiorly extending to the right buttocks (gluteu s medius muscles.) There is also extension of the fat stranding into the quadriceps muscles. No soft tissue loculated fluid collection is seen. No evidence for drainable abscess. In the pelvis there is mild stranding in the presacral space. The urinary bladder is partially obscured by streak but appears normal. Included bowel loops are with in normal limit. Intra-abdominal fluid reservoir associated with a penile implant is noted. Extensive vascular arterial calcifications are seen. There is a small right inguinal fat-containing hernia. IMPRESSION: 1. NO ACUTE FRACTURE OR DISLOCATION SEEN. INTACT RIGHT HIP ARTHROPLASTY. 2. SUPERFICIAL AND DEEP SOFT TISSUE SWELLING IN THE POSTERIOR ASPECT OF THE RIGHT THIGH EXTENDING TO THE GLUTEUS REGION WITH FAT STRANDING IN THE PRESACRAL SPACE. FINDINGS CONCERNING FOR CELLULITIS, ANNETTE SITIS WITH CONCERN FOR PELVIC EXTENSION.
[2021-07-18 23:22] LABS: Basophils # (A) 0.1 k/uL (0-0.2); Basophils % (A) 1 %; Eosinophils # (A) 0.1 k/uL (0-0.7); Eosinophils % (A) 1 %; HCT 37.4 % (39.0-53.0); HGB 11.4 gm/dL (13.0-17.5); Hypochromasia Slight; Lymphocytes # (A) 1.3 k/uL (1.0-4.8); Lymphocytes % (A) 16 %; MCH 28.2 pg (25.0-35.0); MCHC 30.6 g/dL (31.0-37.0); Mean Platelet Volume 9.3; Monocytes # (A) 0.7 k/uL (0-1.0); Monocytes % (A) 9 %; Neutrophils # (A) 5.6 k/uL (1.3-7.7); Neutrophils % (A) 69 %; Platelet Count 305 k/uL (150-450); RBC 4.06 m/uL (4.30-5.90); RDW 15.9 % (11.5-15.5); WBC 8.2 k/uL (3.8-10.6)
[2021-07-18 23:52] LABS: Calcium 8.3 mg/dL (8.4-10.2); Potassium 5.1 mmol/L (3.5-5.1)
--- NOTE | 2021-07-19 00:47 | CT ---
EXAMINATION TYPE: CT abdomen pelvis w con DATE OF EXAM: 07/19/2021 COMPARISON: 07/07/2021 HISTORY: coccyx wound CT DLP: 1643.3 mGycm Automated exposure control for dose reduction was used. CONTRAST: Performed with IV Contrast, patient injected with 80 mL of Isovue 300. Images obtained from the diaphragm to the floor the pelvis with IV contrast. There is some airspace consolidation and atelectasis right lower lobe. There is patchy pleural calcif ication right lung base. There is interposition of the hepatic flexure of the colon which is a normal variant. There is some mild pleural plaque and calcification also in the left posterior lung base. H eart size is normal. There is no pericardial effusion. Liver and spleen are intact. Gallbladder is intact. The bile ducts are not dilated. There is no evide nce of pancreatic mass. There is no adrenal mass. Kidneys have normal size. There is satisfactory contrast opacification of t he kidneys. There is no hydronephrosis. There are small right-sided renal parapelvic cysts. There is one similar cortical cyst posterior right kidney. There is no retroperitoneal adenopathy. Ureters are not dilated. Bladder distends smoothly. There is penile implant. There is no inguinal hernia. There is right hip prosthesis. There is no free fluid in the pelvis. There is no mesenteric edema. There is no ascites or free air. There is no sign of a bowel obstructio n. The lumbar vertebra have normal alignment. There is degenerative disc space narrowing at L4-5. There is degenerative spurring in the lumbar spine. There is multilevel laminectomy defect in the lower lum bar spine. There is increased subcutaneous density over the posterior sacrum on the right side. This measures 6. 2 x 1.7 cm. The length is 11 cm extending from the level of S3 vertebra to below the coccyx. I see no focal bone destruction. The sacroiliac joints are intact. IMPRESSION: Increased density in the subcutaneous tissues over the posterior sacrum in the midline and towards th e right side is increased compared to last exam and consistent with a phlegmon. No bone destruction s een to suggest osteomyelitis. There is airspace consolidation in the right lower lobe with calcified pleural plaque similar to old exam. There is some mild calcified pleural plaque in the left lower lobe unchanged.
[2021-07-19] MEDS ORDERED: MORPHINE SULFATE 4 MG/ML SYRINGE IV PRN (01:18)
[2021-07-19] MEDS ORDERED: NALOXONE 0.4 MG/ML 1 ML VIAL IV PRN (01:18)
[2021-07-19] MEDS ORDERED: IBUPROFEN 400 MG TAB PO PRN (01:18)
[2021-07-19] MEDS ORDERED: ACETAMINOPHEN TAB 325 MG TAB PO PRN (01:18)
[2021-07-19] MEDS ORDERED: VANCOMYCIN IV PER PHARMACY 1 EACH MISC MISCELLANE PRN (01:20)
[2021-07-19] MEDS ORDERED: VANCOMYCIN 1,500 MG in SODIUM CHLORIDE 0.9% 250 ML IVPB ONE (01:30)
[2021-07-19] MEDS: SODIUM CHLORIDE 0.9% 1,000 ML IV SCH ×3 (04:33→14:56)
[2021-07-19] MEDS ORDERED: MAGNESIUM HYDROXIDE 2,400 MG/10 ML CUP PO PRN (07:34)
[2021-07-19] MEDS ORDERED: bisacodyL 10 MG SUPP RECTAL PRN (07:34)
[2021-07-19] MEDS ORDERED: DOCUSATE 100 MG CAP PO PRN (07:34)
[2021-07-19] MEDS: GABAPENTIN 300 MG CAP PO SCH ×2 (07:54→21:52)
[2021-07-19] MEDS: METOPROLOL TARTRATE 50 MG TAB PO SCH ×2 (07:54→17:25)
--- NOTE | 2021-07-19 11:04 | P.GSCN ---
History of Present Illness Consult date: 07/19/21 Reason for Consult: Abscess Requesting physician: Denzel Wilson History of present illness: CHIEF COMPLAINT: Right hip pain HISTORY OF PRESENT ILLNESS: This is a 76-year-old male who was sent in from [facility] for evaluation of right hip pain. Patient states he has right hip pain that has progressively been getting worse over the last 1week duration. He was recently hospitalized and discharged on 07/11/2021 for a urinary tract infection. He has a history of a right hip replacement several years ago. He denies any recent traumas or falls. Also has a pressure sore on his coccyx that he states has been present since October of this year status post cervical surgery. The patient states he had suffered a fall down stairs in had multiple major skeletal injuries in 2018. He underwent spinal surgery and during that time he did suffer a cardiac arrest and had a defibrillator placed. He states he's been in and out of hospitals and rehab over the last several months. He st ates that he had a debridement 2 days ago on his coccyx wound. However he is unsure who did it or where. Patient is somewhat of a poor historian. He denies any fevers or chills. He has been afebrile. Patient states he is with limited mobility. Spends most of the time in bed or in a chair. However he does get around some with a walker. He underwent a CAT scan of the right hip that showed no acute fracture or dislocation seen. Intact right hip arthroplasty. Superficial and deep soft tissue swelling in the posterior aspect of the right thigh extending to the gluteus region with fat stranding in the presacral space. Findings concerning for cellulitis, myositis with concern for pelvic extension. He also underwent a CT of the abdomen and pelvis showing increased density in the subcutaneous tissues over the posterior sacrum in the midline and towards the right side is increased compared to last exam and consistent with a phlegmon. No bone distraction seen to suggest osteomyelitis. Airspace consolidation in the right lower lobe with calcified pleural plaques similar to old exam. There is some mild calcified pleural plaque in the left lower lobe unchanged. WBC 8.2 hemoglobin 11.4 hematocrit 37 platelet count 305,000 sodium 137 potassium 5.1 be 129 creatinine 1.24 glucose 147. Patient is currently on ceftriaxone. Infectious disease is on consult. PAST MEDICAL HISTORY: CVA/TIA, diabetes mellitus, deep vein thrombosis, hypertension, osteoarthritis, pressure wounds PAST SURGICAL HISTORY: Cervical fusion, right hip replacement, cataract surgery, AICD MEDICATIONS: See list. ALLERGIES: See list. SOCIAL HISTORY: No illicit drug use. Non-smoker. REVIEW OF SYSTEMS: CONSTITUTIONAL: Denies fever or chills. HEENT: Denies blurred vision, vision changes, or eye pain. Denies hemoptysis ENDOCRINE: Denies heat or cold intolerance. CARDIOVASCULAR: Denies chest pain or pressure. RESPIRATORY: No shortness of breath. GASTROINTESTINAL: Denies abdominal pain. Denies nausea or vomiting. NEURO: Denies history of seizures. PSYCH: No depression or suicidal ideation HEMATOLOGIC: Denies bleeding disorders. LYMPHATIC: The patient denies any lumps and bumps around the neck. GENITOURINARY: Denies any blood in urine or increased urinary frequency. Patient recently underwent treatment for urinary tract infection. MUSCULOSKELETAL: Complains of right hip pain. SKIN: Denies pruitis. Denies rash. Has flown to coccyx region, present for several months. PHYSICAL EXAM: VITAL SIGNS: Reviewed GENERAL: Well-developed, appears in no acute distress. Thin. HEENT: No sclera icterus. Extraocular movements grossly intact. Moist buccal mucosa. Head is atraumatic, normocephalic. Hears conversational speech. No nasal drainage. NECK: Supple without lymphadenopathy. CHEST: Non-labored respirations and equal bilateral excursions. CARDIOVASCULAR: Palpable 2+ radial pulses. ABDOMEN: Soft. Nondistended. Diffuse tenderness, greatest in the epigastric region. MUSCULOSKELETAL: No clubbing or cyanosis. NEUROLOGIC: No focal or lateralizing signs. Cranial nerves II through XII grossly intact. PSYCH: Appropriate affect. Alert and oriented to person, place and time. SKIN: Well perfused. Good skin turgor. Coccyx with no dressing is intact. Surrounding erythema. No foul odor noted. LABORATORY DATA: WBC 8.2 hemoglobin 11.4 platelet count 305,000 Sodium 137 potassium 5.1 be 129 creatinine 1.24 glucose 147 total protein 5.8 albumin 2.9 IMAGING: CT right hip: No acute fracture or dislocation seen. Intact right hip arthroplasty. Superficial and deep soft tissue swelling in the posterior aspect of the right thigh extending to the gluteus region with fat stranding in the presacral space. Findings concerning for cellulitis, myositis with concern for pelvic extension. CT abdomen and pelvis: Increased density in the subcutaneous tissues over the posterior sacrum in the midline and toward the right side is increased compared to last exam consistent with phlegmon. No bone destruction seen to suggest osteomyelitis. There is airspace consolidation in the right lower lobe with calcified pleural plaques similar to old exam. There is some mild calcified pleural plaque in the left lower lobe unchanged. ASSESSMENT: 1. 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 Right hip pain 3. Cellulitis 4. History of CVA/TIA 5. History of diabetes mellitus 6. History of hypertension 7. History of DVT 8. History of cardiac arrest during surgical procedure, status post AICD placement PLAN: - Continue IV antibiotics per recommendations from infectious disease - Recommend physical therapy - Consult to wound care clinic - Further recommendations forthcoming per surgeon The impression and plan of care has been dictated as directed. I performed a history and examination of this patient, discussed the same with the dictator. I agree with the dictator's note ,documented as a scribe. Any additional findings or plans will be noted. Past Medical History Past Medical History: CVA/TIA, Diabetes Mellitus, Deep Vein Thrombosis (DVT), Hypertension, Osteoarthritis (OA) Additional Past Medical History / Comment(s): current wound left heel. has d ressing change 3x week, wound center patient, states has DVT x3 in rt leg, past hx of diabetes and HTN, no longer requires rx since weight loss. states TIA in 2010 residual muscle weakness in rt leg, wears brace rt leg History of Any Multi-Drug Resistant Organisms: MRSA Year Discovered:: 02/08/19 MDRO Source:: left foot Past Surgical History: Back Surgery, Hernia Repair, Orthopedic Surgery, Pacemak er Additional Past Surgical History / Comment(s): cervical fusion, right hip replacement, cataract surgery Past Anesthesia/Blood Transfusion Reactions: No Reported Reaction Type of Cardiac Device: AICD, Unknown Device Placement Date:: May 2018 Past Psychological History: No Psychological Hx Reported Smoking Status: Never smoker Past Alcohol Use History: None Reported Past Drug Use History: None Reported - Past Family History Mother Family Medical History: Cancer Father Family Medical History: Cancer, Coronary Artery Disease (CAD) Medications and Allergies Home Medications Medication Instructions Recorded Confirmed Type Atorvastatin [Lipitor] 10 mg PO HS@2100 10/29/18 10/20/21 History Multivitamins, Thera [Multivitamin 1 tab PO DAILY@1700 05/08/20 07/18/21 History (formulary)] Calcium Carbonate [Calcium] 600 mg PO BID@0800,1700 07/07/21 07/18/21 History Docusate [Colace] 100 mg PO DAILY PRN 07/07/21 07/18/21 History Doxazosin [Cardura] 4 mg PO HS@209907/07/21 07/18/21 History Insulin Glargine,Hum.rec.anlog 8 unit SQ HS@209907/07/21 07/18/21 History [Basaglar Kwikpen U-100] Magnesium Oxide 400 mg PO DAILY@0800 07/07/21 07/18/21 History Metoprolol Tartrate [Lopressor] 50 mg PO BID@0800,1700 07/07/21 07/18/21 History Omeprazole 20 mg PO DAILY@0800 07/07/21 07/18/21 History Tamsulosin HCl [Flomax] 0.4 mg PO HS@209907/07/21 07/18/21 History Acetaminophen Tab [Tylenol] 650 mg PO Q6HR PRN tab 07/11/21 07/18/21 Rx Apixaban [Eliquis] 5 mg PO BID@0800,1700 07/18/21 07/18/21 History Cefuroxime Axetil [Ceftin] 500 mg PO BID@0800,1700 07/18/21 07/18/21 History Gabapentin [Neurontin] 300 mg PO BID@0800,2100 07/18/21 07/18/21 History Glucerna Shake 1 can PO TID@0800,1200,1700 07/18/21 07/18/21 History HYDROcodone/APAP 7.5-325MG [[place] 1 tab PO Q6H PRN 07/18/21 07/18/21 History 7.5-325] INSULIN LISPRO (humaLOG) [humaLOG] See Protocol SQ ACHS 07/18/21 07/18/21 History Magnesium Hydroxide [Milk of 2,400 mg PO DAILY PRN 07/18/21 07/18/21 History Magnesia] Na Phos,M-B/Na Phos,Di-Ba [Fleet 133 ml RECTAL DAILY PRN 07/18/21 07/18/21 History Adult] QUEtiapine [SEROquel] 25 mg PO HS@2100 07/18/21 07/18/21 History bisacodyL [Dulcolax] 10 mg RECTAL DAILY PRN 07/18/21 07/18/21 History Allergies Allergy/AdvReac Type Severity Reaction Status Date / Time No Known Allergies Allergy Verified 07/18/21 17:46 Surgical - Exam Vital Signs Temp Pulse Resp BP Pulse Ox 98.2 F 78 18 131/55 95 07/18/21 16:36 07/18/21 16:36 07/18/21 16:36 07/18/21 16:36 07/18/21 16:36 Results - Labs 07/18/21 23:11 07/18/21 23:11 Abnormal Lab Results - Last 24 Hours (Table) 07/18/21 07/18/21 Range/Units 23:11 23:11 RBC 4.06 L (4.30-5.90) m/uL Hgb 11.4 L (13.0-17.5) gm/dL Hct 37.4 L (39.0-53.0) % MCHC 30.6 L (31.0-37.0) g/dL RDW 15.9 H (11.5-15.5) % BUN 29 H (9-20) mg/dL Glucose 147 H (74-99) mg/dL Calcium 8.3 L (8.4-10.2) mg/dL Microbiology - Last 24 Hours (Table) 07/18/21 03:02 Wound Culture - Preliminary Other - Other Diabetes panel 07/18/21 Range/Units 23:11 Sodium 137 (137-145) mmol/L Potassium 5.1 (3.5-5.1) mmol/L Chloride 101 (98-107) mmol/L Carbon Dioxide 30 (22-30) mmol/L BUN 29 H (9-20) mg/dL Creatinine 1.24 (0.66-1.25) mg/dL Glucose 147 H (74-99) mg/dL Calcium 8.3 L (8.4-10.2) mg/dL Calcium panel 07/18/21 Range/Units 23:11 Calcium 8.3 L (8.4-10.2) mg/dL Pituitary panel 07/18/21 Range/Units 23:11 Sodium 137 (137-145) mmol/L Potassium 5.1 (3.5-5.1) mmol/L Chloride 101 (98-107) mmol/L Carbon Dioxide 30 (22-30) mmol/L BUN 29 H (9-20) mg/dL Creatinine 1.24 (0.66-1.25) mg/dL Glucose 147 H (74-99) mg/dL Calcium 8.3 L (8.4-10.2) mg/dL Adrenal panel 07/18/21 Range/Units 23:11 Sodium 137 (137-145) mmol/L Potassium 5.1 (3.5-5.1) mmol/L Chloride 101 (98-107) mmol/L Carbon Dioxide 30 (22-30) mmol/L BUN 29 H (9-20) mg/dL Creatinine 1.24 (0.66-1.25) mg/dL Glucose 147 H (74-99) mg/dL Calcium 8.3 L (8.4-10.2) mg/dL
--- NOTE | 2021-07-19 11:51 | P.HPIM ---
History of Present Illness This is a pleasant 76 years old male with past medical history of CVA/TIA, Diabetes Mellitus, Deep Vein Thrombosis on Eliquis, Hypertension, Osteoarthritis, current wound left heel., states has DVT x3 in rt leg, past hx of diabetes and HTN, no longer requires rx since weight loss. TIA/CVA in 2010 residual muscle weakness in rt leg, wears brace rt leg Patient came from [facility], he wasn't sure why this and him but he was complaining of from pressure ulcer and pain in the back of his right hip with area of redness and tenderness and warmth. Denies any other symptoms. No chest pain or dyspnea. No coughing. No diarrhea or dysuria. No fever. 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 Vitals stable and patient is afebrile Labs including CBC, BMP are unremarkable. Coronal virus not detected CT of the abdomen and pelvis with contrast: There is increased subcutaneous density over the posterior sacrum on the right side. 6.2 x 1.7 cm. There is still 11 cm extending from the level of S3 vertebra to below coccyx. No focal bone destruction to suggest osteomyelitis. CT: No acute fracture or dislocation. Superficial and deep soft tissue swelling in the posterior aspect of the right thigh extending into the gluteus region with fat stranding in the presacral space. Findings consistent for cellulitis myositis with concern for pelvic extension In the emergency room patient received ceftriaxone and IV vancomycin. Also normal saline He was admitted with surgical team consult Review of Systems CONSTITUTIONAL: No fever, no malaise, no fatigue. HEENT: No recent visual problems or hearing problems. Denied any sore throat. CARDIOVASCULAR: No orthopnea, PND, no palpitations, no syncope. PULMONARY: No shortness of breath, no cough, no hemoptysis. GASTROINTESTINAL: No diarrhea, no nausea, no vomiting, no abdominal pain. Normoactive bowel sounds. NEUROLOGICAL: No headaches, no weakness, no numbness. HEMATOLOGICAL: Denies any bleeding or petechiae. GENITOURINARY: Denies any burning micturition, frequency, or urgency. MUSCULOSKELETAL/RHEUMATOLOGICAL: Denies any joint pain, swelling, or any muscle pain. ENDOCRINE: Denies any polyuria or polydipsia. Past Medical History Past Medical History: CVA/TIA, Diabetes Mellitus, Deep Vein Thrombosis (DVT), Hypertension, Osteoarthritis (OA) Additional Past Medical History / Comment(s): current wound left heel. has dressing change 3x week, wound center patient, states has DVT x3 in rt leg, past hx of diabetes and HTN, no longer requires rx since weight loss. states TIA in 2010 residual muscle weakness in rt leg, wears brace rt leg History of Any Multi-Drug Resistant Organisms: MRSA Date of last positivie culture/infection: 02/08/19 MDRO Source:: left foot Past Surgical History: Back Surgery, Hernia Repair, Orthopedic Surgery, Pacemaker Additional Past Surgical History / Comment(s): cervical fusion, right hip replacement, cataract surgery Past Anesthesia/Blood Transfusion Reactions: No Reported Reaction Type of Cardiac Device: AICD, Unknown Device Placement Date:: May 2018 Past Psychological History: No Psychological Hx Reported Smoking Status: Never smoker Past Alcohol Use History: None Reported Past Drug Use History: None Reported - Past Family History Mother Family Medical History: Cancer Father Family Medical History: Cancer, Coronary Artery Disease (CAD) Medications and Allergies Home Medications Medication Instructions Recorded Confirmed Type Atorvastatin [Lipitor] 10 mg PO HS@209910/29/18 07/18/21 History Multivitamins, Thera [Multivitamin 1 tab PO DAILY@1700 05/08/20 07/18/21 History (formulary)] Calcium Carbonate [Calcium] 600 mg PO BID@0800,1700 07/07/21 07/18/21 History Docusate [Colace] 100 mg PO DAILY PRN 07/07/21 07/18/21 History Doxazosin [Cardura] 4 mg PO HS@209907/07/21 07/18/21 History Insulin Glargine,Hum.rec.anlog 8 unit SQ HS@209907/07/21 07/18/21 History [Basaglar Kwikpen U-100] Magnesium Oxide 400 mg PO DAILY@0800 07/07/21 07/18/21 History Metoprolol Tartrate [Lopressor] 50 mg PO BID@0800,1700 07/07/21 07/18/21 History Omeprazole 20 mg PO DAILY@0800 07/07/21 07/18/21 History Tamsulosin HCl [Flomax] 0.4 mg PO HS@2100 07/07/21 07/18/21 History Acetaminophen Tab [Tylenol] 650 mg PO Q6HR PRN tab 07/11/21 07/18/21 Rx Apixaban [Eliquis] 5 mg PO BID@0800,1700 07/18/21 07/18/21 History Cefuroxime Axetil [Ceftin] 500 mg PO BID@0800,1700 07/18/21 07/18/21 History Gabapentin [Neurontin] 300 mg PO BID@0800,2100 07/18/21 07/18/21 History Glucerna Shake 1 can PO TID@0800,1200,1700 07/18/21 07/18/21 History HYDROcodone/APAP 7.5-325MG [[place] 1 tab PO Q6H PRN 07/18/21 07/18/21 History 7.5-325] INSULIN LISPRO (humaLOG) [humaLOG] See Protocol SQ ACHS 07/18/21 07/18/21 History Magnesium Hydroxide [Milk of 2,400 mg PO DAILY PRN 07/18/21 07/18/21 History Magnesia] Na Phos,M-B/Na Phos,Di-Ba [Fleet 133 ml RECTAL DAILY PRN 07/18/21 07/18/21 History Adult] QUEtiapine [SEROquel] 25 mg PO HS@209907/18/21 07/18/21 History bisacodyL [Dulcolax] 10 mg RECTAL DAILY PRN 07/18/21 07/18/21 History Allergies Allergy/AdvReac Type Severity Reaction Status Date / Time No Known Allergies Allergy Verified 07/18/21 17:46 Physical Exam Vitals: Vital Signs Temp Pulse Resp BP Pulse Ox 07/19/21 07:00 71 16 147/66 95 07/19/21 06:00 76 14 152/62 95 07/19/21 05:00 98.6 F 79 18 152/62 96 07/19/21 01:00 176/86 95 07/19/21 00:00 151/76 07/18/21 23:00 122/82 97 07/18/21 22:00 153/101 92 L 07/18/21 21:00 129/71 96 07/18/21 20:00 128/68 94 L 10/20/21 19:00 148/73 97 07/18/21 18:08 92 18 145/80 98 07/18/21 18:00 149/70 96 07/18/21 17:00 131/55 07/18/21 16:36 98.2 F 78 18 131/55 90 L Intake and Output 07/18/21 07/19/21 07/19/21 22:59 06:59 14:59 Other: Weight 78.018 kg GENERAL: The patient is alert and oriented x3, not in any acute distress. Well developed, well nourished. HEENT: Pupils are round and equally reacting to light. EOMI. No scleral icterus. No conjunctival pallor. Normocephalic, atraumatic. No pharyngeal erythema. No thyromegaly. CARDIOVASCULAR: S1 and S2 present. No murmurs, rubs, or gallops. PULMONARY: Chest is clear to auscultation, no wheezing or crackles. ABDOMEN: Soft, nontender, nondistended, normoactive bowel sounds. No palpable organomegaly. MUSCULOSKELETAL: No joint swelling or deformity. Lower back pressure ulcers with purulent discharge. And there is surrounding area of redness, warmth and tenderness extending to the right lower buttock behind area of right hip -EXTREMITIES: No cyanosis, clubbing, or pedal edema. -NEUROLOGICAL: Fully awake and oriented. Gross neurological cranial nerves are grossly intact. He has chronic right leg and arm weakness. Meningeal signs are absent SKIN: No rashes. No petechiae Results CBC & Chem 7: 07/18/21 23:11 07/18/21 23:11 Labs: Abnormal Lab Results - Last 24 Hours (Table) 07/18/21 07/18/21 Range/Units 23:11 23:11 RBC 4.06 L (4.30-5.90) m/uL Hgb 11.4 L (13.0-17.5) gm/dL Hct 37.4 L (39.0-53.0) % MCHC 30.6 L (31.0-37.0) g/dL RDW 15.9 H (11.5-15.5) % BUN 29 H (9-20) mg/dL Glucose 147 H (74-99) mg/dL Calcium 8.3 L (8.4-10.2) mg/dL Assessment and Plan Assessment: Sacral abscess, 6.2 x 1.7 cm Right thigh cellulitis and myositis with concern for pelvic extension Diabetes mellitus, and insulin Hypertension Hyperlipidemia History of CVA with right hemiparesis there is a right leg History of osteoarthritis History of deep venous thrombosis 3 on Eliquis Plan: This is a pleasant 76 years old male who presents with pelvic abscess and right thigh cellulitis. Continue with antibiotics and follow-up culture. Continue with IV fluids Infectious disease consult Follow-up recommendation by surgery team [facility] for possible surgical intervention Labs and medication were reviewed.. Continue same treatment. Continue with symptomatic treatment. Resume home medication. Monitor lytes and vitals. DVT and GI prophylaxis. Further recommendations depends on the clinical course of the patient DVT prophylaxis: SCD GI Prophylaxis: Pepcid PT/OT: Pending Prognosis is guarded
[2021-07-19 12:15] LABS: Glucose,Whole Blood 99 mg/dL (75-99)
[2021-07-19] MEDS: INSULIN ASPART (NovoLOG) 100 UNIT/ML VIAL SQ SCH ×3 (12:16→21:52)
[2021-07-19] MEDS: HYDROcodone/APAP 7.5-325MG 1 EACH TAB PO PRN ×2 (13:50→21:50)
[2021-07-19 16:49] LABS: Glucose,Whole Blood 139 mg/dL (75-99)
[2021-07-19 20:23] LABS: Glucose,Whole Blood 142 mg/dL (75-99)
[2021-07-19] MEDS: ATORVASTATIN 10 MG TAB PO SCH (21:51)
[2021-07-19] MEDS: TAMSULOSIN 0.4 MG CAP.ER.24H PO SCH (21:51)
[2021-07-19] MEDS: DOXAZOSIN 4 MG TAB PO SCH (21:52)
[2021-07-19] MEDS: QUEtiapine 25 MG TAB PO SCH (21:52)
--- NOTE | 2021-07-19 23:14 | P.CONS ---
History of Present Illness - Reason for Consult Consult date: 07/19/21 infected sacral ulcer Requesting physician: Ken E Sheet - Chief Complaint right hip pain x days and non healing wound to sacral area x weeks - History of Present Illness History of present illness : Patient is 76-year-old male who was [facility] for evaluation of right hip discomfort in this patient apparently has x-ray showing evidence of right hip fracture patient also have a sacral pressure ulcer that has been there for a couple of weeks to months patient not really sure what kind of treatment has been provided to him patient be complaining of some discomfort to the area patient on presentation to the hospital was afebrile and no fever has been recorded subsequently patient did have a normal white count patient did have a local wound cultures obtained which are currently pending patient did have X CT of the hip no acute fracture or dislocation intact right hip arthroplasty CT abdominal pelvis was done which shows increased density subcutaneous tissue on the posterior sacrum with concern for possible Ful[place] no bowel obstruction patient has been admitted to hospital patient was started on Rocephin and vancomycin infectious disease was consulted for further management of antibiotic therapy Review of system: CONSTITUTIONAL: Positive for weakness patient denies fever. EYES: No complaint. ENT: No complaint. RESPIRATORY: No complaint. CARDIOVASCULAR: No complaint. GENITOURINARY: No complaint. GASTROINTESTINAL: No complaint. MUSCULOSKELETAL: As per history of present illness. INTEGUMENTARY: As per history of present illness. PSYCHOLOGIC: No complaint. ENDOCRINE: No complaint. NEUROLOGIC: No complaint. Past medical history : Reviewed, documented below Past surgical history : Reviewed, documented below Social history: Reviewed, documented below Medications: Reviewed, as documented below EXAMINATION: Vital sigans= Reviewed and documented below GENERAL DESCRIPTION: Elderly male lying in bed, no distress. No tachypnea or accessory muscle of respiration use. HEENT: Shows Pallor , no scleral icterus. Oral mucous membrane is dry. NECK: Trachea central, no thyromegaly. LUNGS: Unlabored breathing. Clear to auscultation anteriorly. No wheeze or crackle. HEART: S1, S2, regular rate and rhythm. ABDOMEN: Soft, no tenderness , guarding or rigidity EXTREMITIES: No edema of feet. SKIN: No rash, no masses palpable. Patient did have a stage III sacral pressure ulcer with some slough tissue minimal surrounding erythema no foul-smelling drainage NEUROLOGICAL: The patient is awake, alert, oriented x3, mood and affect normal. LABS AND RADIOLOGY: Reviewed results see below Assessment : Patient presented to hospital with right hip pain apparently x-rays done was suspicious for a fracture however CT did not show any evidence of fracture and intact right hip arthroplasty. 2patient did have a stage III sacral pressure ulcer with slough tissue minimal surrounding redness however the patient did not have any fever or any elevated white count and CT failed to reveal any abscess or osteomyelitis Plan: 1-local wound care to the sacral wound with the Santyl followed by moist dressing keep the area of the pressure 2-vancomycin pharmacy to dose with a target trough of 15 while watching kidney function and Vanco trough closely. And Rocephin to continue 3-keep the area of the pressure We will follow on clinical condition and cultures to further adjust medication if needed Thank you for this consultation we will follow the patient along with you Past Medical History Past Medical History: CVA/TIA, Diabetes Mellitus, Deep Vein Thrombosis (DVT), Hypertension, Osteoarthritis (OA) Additional Past Medical History / Comment(s): wound center patient, states has DVT x3 in rt leg, past hx of diabetes and HTN, no longer requires rx since weight loss. states TIA in 2010 residual muscle weakness in rt leg, wears brace rt leg, uti History of Any Multi-Drug Resistant Organisms: MRSA Year Discovered:: 02/08/19 MDRO Source:: left foot Past Surgical History: Back Surgery, Hernia Repair, Orthopedic Surgery, Pacemaker Additional Past Surgical History / Comment(s): cervical fusion, right hip replacement, cataract surgery Past Anesthesia/Blood Transfusion Reactions: No Reported Reaction Type of Cardiac Device: AICD, Unknown Device Placement Date:: May 2018 Past Psychological History: No Psychological Hx Reported Smoking Status: Never smoker Past Alcohol Use History: None Reported Past Drug Use History: None Reported - Past Family History Mother Family Medical History: Cancer Father Family Medical History: Cancer, Coronary Artery Disease (CAD) Medications and Allergies Home Medications Medication Instructions Recorded Confirmed Type Atorvastatin [Lipitor] 10 mg PO HS@2100 10/29/18 07/18/21 History Multivitamins, Thera [Multivitamin 1 tab PO DAILY@1700 05/08/20 07/18/21 History (formulary)] Calcium Carbonate [Calcium] 600 mg PO BID@0800,1700 07/07/21 07/18/21 History Docusate [Colace] 100 mg PO DAILY PRN 07/07/21 07/18/21 History Doxazosin [Cardura] 4 mg PO HS@209907/07/21 07/18/21 History Insulin Glargine,Hum.rec.anlog 8 unit SQ HS@209907/07/21 07/18/21 History [Basaglar Marielapen U-100] Magnesium Oxide 400 mg PO DAILY@0800 07/07/21 07/18/21 History Metoprolol Tartrate [Lopressor] 50 mg PO BID@0800,1700 07/07/21 07/18/21 History Omeprazole 20 mg PO DAILY@0800 07/07/21 07/18/21 History Tamsulosin HCl [Flomax] 0.4 mg PO HS@209907/07/21 07/18/21 History Acetaminophen Tab [Tylenol] 650 mg PO Q6HR PRN tab 07/11/21 07/18/21 Rx Apixaban [Eliquis] 5 mg PO BID@0800,1700 07/18/21 07/18/21 History Cefuroxime Axetil [Ceftin] 500 mg PO BID@0800,1700 07/18/21 07/18/21 History Gabapentin [Neurontin] 300 mg PO BID@0800,2100 07/18/21 07/18/21 History Glucerna Shake 1 can PO TID@0800,1200,1700 07/18/21 07/18/21 History HYDROcodone/APAP 7.5-325MG [Niota 1 tab PO Q6H PRN 07/18/21 07/18/21 History 7.5-325] INSULIN LISPRO (humaLOG) [humaLOG] See Protocol SQ ACHS 07/18/21 07/18/21 History Magnesium Hydroxide [Milk of 2,400 mg PO DAILY PRN 07/18/21 07/18/21 History Magnesia] Na Phos,M-B/Na Phos,Di-Ba [Fleet 133 ml RECTAL DAILY PRN 07/18/21 07/18/21 History Adult] QUEtiapine [SEROquel] 25 mg PO HS@2100 07/18/21 07/18/21 History bisacodyL [Dulcolax] 10 mg RECTAL DAILY PRN 07/18/21 07/18/21 History Allergies Allergy/AdvReac Type Severity Reaction Status Date / Time No Known Allergies Allergy Verified 07/18/21 17:46 Physical Exam Vitals: Vital Signs Temp Pulse Pulse Resp BP BP Pulse Ox 07/19/21 19:14 97.9 F 68 16 154/72 97 07/19/21 14:00 98.2 F 71 16 108/64 94 L 07/19/21 13:51 78 18 117/55 96 07/19/21 08:00 18 144/64 94 L 07/19/21 07:00 71 16 147/66 95 07/19/21 06:00 76 14 152/62 95 07/19/21 05:00 98.6 F 79 18 152/62 96 07/19/21 01:00 176/86 95 07/19/21 00:00 151/76 Intake and Output 07/19/21 07/19/21 07/20/21 14:59 22:59 06:59 Intake Total 420 Balance 420 Intake: Oral 420 Other: Voiding Method Urinal Urinal Diaper Weight 78.018 kg Results CBC & Chem 7: 07/18/21 23:11 07/18/21 23:11 Labs: Abnormal Lab Results - Last 24 Hours (Table) 07/18/21 07/18/21 07/19/21 Range/Units 23:11 23:11 16:39 RBC 4.06 L (4.30-5.90) m/uL Hgb 11.4 L (13.0-17.5) gm/dL Hct 37.4 L (39.0-53.0) % MCHC 30.6 L (31.0-37.0) g/dL RDW 15.9 H (11.5-15.5) % BUN 29 H (9-20) mg/dL Glucose 147 H (74-99) mg/dL POC Glucose (mg/dL) 139 H (75-99) mg/dL Calcium 8.3 L (8.4-10.2) mg/dL 07/19/21 Range/Units 20:22 RBC (4.30-5.90) m/uL Hgb (13.0-17.5) gm/dL Hct (39.0-53.0) % MCHC (31.0-37.0) g/dL RDW (11.5-15.5) % BUN (9-20) mg/dL Glucose (74-99) mg/dL POC Glucose (mg/dL) 142 H (75-99) mg/dL Calcium (8.4-10.2) mg/dL Microbiology - Last 24 Hours (Table) 07/18/21 03:02 Wound Culture - Preliminary Other - Other
[2021-07-20] MEDS: SODIUM CHLORIDE 0.9% 1,000 ML IV SCH ×2 (04:35→17:40)
[2021-07-20] MEDS ORDERED: VANCOMYCIN 1,500 MG in SODIUM CHLORIDE 0.9% 250 ML IVPB SCH ×2 (06:00→22:00)
[2021-07-20 07:05] LABS: Glucose,Whole Blood 90 mg/dL (75-99)
[2021-07-20] MEDS: INSULIN ASPART (NovoLOG) 100 UNIT/ML VIAL SQ SCH ×3 (07:43→17:37)
[2021-07-20] MEDS: METOPROLOL TARTRATE 50 MG TAB PO SCH ×2 (07:43→17:38)
[2021-07-20] MEDS: GABAPENTIN 300 MG CAP PO SCH ×2 (07:43→21:40)
[2021-07-20] MEDS: HYDROcodone/APAP 7.5-325MG 1 EACH TAB PO PRN ×3 (07:59→21:38)
[2021-07-20 10:11] LABS: Basophils # (A) 0.02 X 10*3/uL (0.00-0.10); Basophils % (A) 0.3 %; Eosinophils # (A) 0.09 X 10*3/uL (0.04-0.35); Eosinophils % (A) 1.2 %; HCT 35.1 % (39.6-50.0); HGB 10.6 g/dL (13.0-17.0); Lymphocytes # (A) 1.06 X 10*3/uL (0.90-5.00); Lymphocytes % (A) 13.8 %; MCH 27.3 pg (27.0-32.0); MCHC 30.2 g/dL (32.0-37.0); MCV 90.5 fL (80.0-97.0); Mean Platelet Volume 11.8 fL (9.5-12.2); Monocytes # (A) 0.99 X 10*3/uL (0.20-1.00); Monocytes % (A) 12.9 %; Neutrophils # (A) 5.46 X 10*3/uL (1.80-7.70); Neutrophils % (A) 70.8 %; Platelet Count 318 X 10*3/uL (140-440); RBC 3.88 X 10*6/uL (4.40-5.60); RDW 17.3 % (11.5-14.5)
[2021-07-20 11:01] LABS: African American GFR (CKD) 60.6 (60.0-200.0); Albumin 2.8 g/dL (3.8-4.9); Albumin/Globulin Ratio 0.88 (1.60-3.17); Anion Gap 9.9 mmol/L (4.00-12.00); BUN/Creat Ratio 17.92 Ratio (12.00-20.00); Blood Urea Nitrogen 23.3 mg/dL (9.0-27.0); Carbon Dioxide 22.1 mmol/L (21.6-31.8); Globulin 3.2 g/dL (1.6-3.3); Non-African American GFR(CKD) 52.3 (60.0-200.0); Total Bilirubin 0.2 mg/dL (0.30-1.20)
[2021-07-20 11:12] LABS: Glucose,Whole Blood 110 mg/dL (75-99)
[2021-07-20 12:24] VITALS: BMI 20.9
--- NOTE | 2021-07-20 13:12 | P.PN ---
Subjective This is a pleasant 76 years old male with past medical history of CVA/TIA, Diabetes Mellitus, Deep Vein Thrombosis on Eliquis, Hypertension, Osteoar thritis, current wound left heel., states has DVT x3 in rt leg, past hx of diabetes and HTN, no longer requires rx since weight loss. TIA/CVA in 2010 residual muscle weakness in rt leg, wears brace rt leg Patient came from [facility], he wasn't sure why this and him but he was complaining of from pressure ulcer and pain in the back of his right hip with area of redness and tenderness and warmth. Denies any other symptoms. No chest pain or dyspnea. No coughing. No diarrhea or dysuria. No fever. 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 Vitals stable and patient is afebrile Labs including CBC, BMP are unremarkable. Coronal virus not detected CT of the abdomen and pelvis with contrast: There is increased subcutaneous density over the posterior sacrum on the right side. 6.2 x 1.7 cm. There is still 11 cm extending from the level of S3 vertebra to below coccyx. No focal b one destruction to suggest osteomyelitis. CT: No acute fracture or dislocation. Superficial and deep soft tissue swelling in the posterior aspect of the right thigh extending into the gluteus region with fat stranding in the presacral space. Findings consistent for cellulitis myositis with concern for pelvic extension In the emergency room patient received ceftriaxone and IV vancomycin. Also no rmal saline He was admitted with surgical team consult 07/20/2021 Patient awake. Vitals are stable. Labs are stable as well. The unit for surgical intervention by surgery team. There is no sacral abscess further recommendation is just pressure ulcer. Wound culture is growing gram-negative bacilli. Patient continued on gentle hydration Rocephin and IV vancomycin Objective - Vital Signs Vital signs: Vital Signs Temp 98.3 F 07/20/21 09:56 Pulse 71 07/20/21 09:56 Resp 16 07/20/21 09:56 BP 152/73 07/20/21 09:56 Pulse Ox 95 07/20/21 09:56 Intake & Output 07/19/21 07/20/21 07/20/21 18:59 06:59 18:59 Intake Total 420 Output Total 280 900 Balance 420 -280 -900 Weight 78.018 kg 78.018 kg Intake: Oral 420 Output: Urine 280 900 Other: Voiding Method Urinal Urinal Diaper Diaper # Voids 6 - Exam GENERAL: The patient is alert and oriented x3, not in any acute distress. Well developed, well nourished. HEENT: Pupils are round and equally reacting to light. EOMI. No scleral icterus. No conjunctival pallor. Normocephalic, atraumatic. No pharyngeal erythema. No thyromegaly. CARDIOVASCULAR: S1 and S2 present. No murmurs, rubs, or gallops. PULMONARY: Chest is clear to auscultation, no wheezing or crackles. ABDOMEN: Soft, nontender, nondistended, normoactive bowel sounds. No palpable organomegaly. MUSCULOSKELETAL: No joint swelling or deformity. Lower back pressure ulcers with purulent discharge. And there is surrounding area of redness, warmth and tenderness extending to the right lower buttock behind area of right hip -EXTREMITIES: No cyanosis, clubbing, or pedal edema. -NEUROLOGICAL: Fully awake and oriented. Gross neurological cranial nerves are grossly intact. He has chronic right leg and arm weakness. Meningeal signs are absent SKIN: No rashes. No petechiae - Labs CBC & Chem 7: 07/20/21 03:34 07/20/21 03:34 Labs: Abnormal Lab Results - Last 24 Hours (Table) 07/19/21 07/19/21 07/20/21 Range/Units 16:39 20:22 03:34 RBC 3.88 L (4.40-5.60) X 10*6/uL Hgb 10.6 L (13.0-17.0) g/dL Hct 35.1 L (39.6-50.0) % MCHC 30.2 L (32.0-37.0) g/dL RDW 17.3 H (11.5-14.5) % Immature Gran # 0.08 H (0.00-0.04) X 10*3/uL Est GFR (CKD-EPI)NonAf (60.0-200.0) POC Glucose (mg/dL) 139 H 142 H (75-99) mg/dL Calcium (8.7-10.3) mg/dL Total Bilirubin (0.30-1.20) mg/dL AST (14-35) U/L Total Protein (6.2-8.2) g/dL Albumin (3.8-4.9) g/dL Albumin/Globulin Ratio (1.60-3.17) g/dL 07/20/21 07/20/21 Range/Units 03:34 11:11 RBC (4.40-5.60) X 10*6/uL Hgb (13.0-17.0) g/dL Hct (39.6-50.0) % MCHC (32.0-37.0) g/dL RDW (11.5-14.5) % Immature Gran # (0.00-0.04) X 10*3/uL Est GFR (CKD-EPI)NonAf 52.3 L (60.0-200.0) POC Glucose (mg/dL) 110 H (75-99) mg/dL Calcium 8.0 L (8.7-10.3) mg/dL Total Bilirubin 0.20 L (0.30-1.20) mg/dL AST 13 L (14-35) U/L Total Protein 6.0 L (6.2-8.2) g/dL Albumin 2.8 L (3.8-4.9) g/dL Albumin/Globulin Ratio 0.88 L (1.60-3.17) g/dL Microbiology - Last 24 Hours (Table) 07/18/21 03:02 Gram Stain - Preliminary Other - Other Wound Culture - Preliminary Gram Neg Bacilli Assessment and Plan Assessment: Sacral pressure ulcer stage II rather than abscess. 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 Continue with antibiotics and follow-up culture. Continue with IV fluids Infectious disease consult Follow-up recommendation by surgery team Resume Eliquis Labs and medication were reviewed.. Continue same treatment. Continue with symptomatic treatment. Resume home medication. Monitor lytes and vitals. DVT and GI prophylaxis. Further recommendations depends on the clinical course of the patient DVT prophylaxis: SCD GI Prophylaxis: Pepcid PT/OT: Pending Prognosis is guarded
--- NOTE | 2021-07-20 15:11 | P.PN ---
Subjective Progress Note Date: 07/20/21 CHIEF COMPLAINT: Right hip pain HISTORY OF PRESENT ILLNESS: Knee 6-year-old male who was sent in from [facility] for complaints of right hip pain. He has chronic wound to his sacral/coccyx region. Apparently the patient has had wound care at [facility] with possible debridement. Infectious disease is following and does not believe patient needs any surgical debridement. Patient is on IV antibiotics per recommendations of infectious disease. He still complains of some right hip pain. He is afebrile. He denies any abdominal pain, nausea, or vomiting. Wound care clinic has been consulted PHYSICAL EXAM: VITAL SIGNS: Reviewed GENERAL: Well-developed in no acute distress. HEENT: No sclera icterus. Extraocular movements grossly intact. Moist buccal mucosa. Head is atraumatic, normocephalic. Hears conversational speech. No nasal drainage. NECK: Supple without lymphadenopathy. CHEST: Non-labored respirations and equal bilateral excursions. CARDIOVASCULAR: Palpable 2+ radial pulses. ABDOMEN: Soft. Nondistended. Nontender. MUSCULOSKELETAL: No clubbing or cyanosis. NEUROLOGIC: No focal or lateralizing signs. Cranial nerves II through XII grossly intact. PSYCH: Appropriate affect. Alert and oriented to person, place and time. SKIN: Well perfused. Coccyx/sacral region with dressing clean dry and intact. ASSESSMENT: 1. 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 Right hip pain 3. Cellulitis 4. History of CVA/TIA 5. History diabetes mellitus 6. History of hypertension 7. History of DVT 8. History of cardiac arrest during surgical procedure, status post AICD placement PLAN: -Continue IV antibiotics per infectious disease recommendations -Continue local wound care per recommendations from infectious disease -Wound care clinic consulted for further wound management and outpatient wound care -No plans on surgical intervention at this time -Thank you for this consultation, general surgery will sign off. Please do not hesitate to call back as needed. The impression and plan of care has been dictated as directed. Dr. Stuart I performed a history and examination of this patient, discussed the same with the dictator. I agree with the dictator's note ,documented as a scribe. Any additional findings or plans will be noted. Objective - Vital Signs Vital signs: Vital Signs Temp 98.3 F 07/20/21 09:56 Pulse 71 07/20/21 09:56 Resp 16 07/20/21 09:56 BP 152/73 07/20/21 09:56 Pulse Ox 95 07/20/21 09:56 Intake & Output 07/19/21 07/20/21 07/20/21 18:59 06:59 18:59 Intake Total 420 Output Total 280 900 Balance 420 -280 -900 Weight 78.018 kg 78.018 kg Intake: Oral 420 Output: Urine 280 900 Other: Voiding Method Urinal Urinal Diaper Diaper # Voids 6 - Labs CBC & Chem 7: 07/20/21 03:34 07/20/21 03:34 Labs: Abnormal Lab Results - Last 24 Hours (Table) 07/19/21 07/19/21 07/20/21 Range/Units 16:39 20: 03:34 RBC 3.88 L (4.40-5.60) X 10*6/uL Hgb 10.6 L (13.0-17.0) g/dL Hct 35.1 L (39.6-50.0) % MCHC 30.2 L (32.0-37.0) g/dL RDW 17.3 H (11.5-14.5) % Immature Gran # 0.08 H (0.00-0.04) X 10*3/uL Est GFR (CKD-EPI)NonAf (60.0-200.0) POC Glucose (mg/dL) 139 H 142 H (75-99) mg/dL Calcium (8.7-10.3) mg/dL Total Bilirubin (0.30-1.20) mg/dL AST (14-35) U/L Total Protein (6.2-8.2) g/dL Albumin (3.8-4.9) g/dL Albumin/Globulin Ratio (1.60-3.17) g/dL 07/20/21 07/20/21 Range/Units 03:34 11:11 RBC (4.40-5.60) X 10*6/uL Hgb (13.0-17.0) g/dL Hct (39.6-50.0) % MCHC (32.0-37.0) g/dL RDW (11.5-14.5) % Immature Gran # (0.00-0.04) X 10*3/uL Est GFR (CKD-EPI)NonAf 52.3 L (60.0-200.0) POC Glucose (mg/dL) 110 H (75-99) mg/dL Calcium 8.0 L (8.7-10.3) mg/dL Total Bilirubin 0.20 L (0.30-1.20) mg/dL AST 13 L (14-35) U/L Total Protein 6.0 L (6.2-8.2) g/dL Albumin 2.8 L (3.8-4.9) g/dL Albumin/Globulin Ratio 0.88 L (1.60-3.17) g/dL Microbiology - Last 24 Hours (Table) 07/18/21 03:02 Gram Stain - Preliminary Other - Other Wound Culture - Preliminary Gram Neg Bacilli
[2021-07-20 16:32] LABS: Glucose,Whole Blood 205 mg/dL (75-99)
[2021-07-20] MEDS: COLLAGENASE 250 UNIT/GM OINTMENT 30 GM TUBE TOPICAL SCH (17:42)
[2021-07-20 20:42] LABS: Glucose,Whole Blood 170 mg/dL (75-99)
[2021-07-20] MEDS ORDERED: FAMOTIDINE 20 MG/2 ML VIAL IV SCH (21:00)
[2021-07-20] MEDS: APIXABAN 5 MG TAB PO SCH (21:21)
[2021-07-20] MEDS: ATORVASTATIN 10 MG TAB PO SCH (21:40)
[2021-07-20] MEDS: TAMSULOSIN 0.4 MG CAP.ER.24H PO SCH (21:40)
[2021-07-20] MEDS: QUEtiapine 25 MG TAB PO SCH (21:40)
[2021-07-20] MEDS: DOXAZOSIN 4 MG TAB PO SCH (21:40)
--- NOTE | 2021-07-20 22:14 | PN ---
PROGRESS NOTE REASON FOR FOLLOWUP: Infected sacral pressure ulcer. INTERVAL HISTORY: The patient is afebrile. He is breathing comfortably. He has been complaining of some discomfort to the wound area. The patient denies having any chest pain, shortness of breath or cough. No abdominal pain or diarrhea. PHYSICAL EXAMINATION: Blood pressure 127/75 with a pulse of 57, temperature 97.6. He is 97% on room air. General description is an elderly male lying in bed in no distress. RESPIRATORY SYSTEM: Unlabored breathing. Clear to auscultation anteriorly. HEART: S1, S2. Regular rate and rhythm. ABDOMEN: Soft. No tenderness. EXTREMITIES: No edema of the feet. LABS: Hemoglobin is 10.6, white count 7.70. Creatinine is 1.39. DIAGNOSTIC IMPRESSION AND PLAN: Patient with an infected sacral pressure ulcer. Local culture is showing a Gram- negative. Antibiotic will be adjusted to cefepime. Discontinue vancomycin and Rocephin. Local care with Santyl. Continue supportive care. MMODL / IJN: [id number] /
[2021-07-21] MEDS: INSULIN ASPART (NovoLOG) 100 UNIT/ML VIAL SQ SCH ×5 (00:05→22:24)
[2021-07-21] MEDS: CEFEPIME 2 GM in SODIUM CHLORIDE 0.9% 100 ML IVPB SCH ×4 (01:22→23:44)
[2021-07-21] MEDS: SODIUM CHLORIDE 0.9% 1,000 ML IV SCH ×2 (01:23→17:19)
[2021-07-21] MEDS: HYDROcodone/APAP 7.5-325MG 1 EACH TAB PO PRN ×4 (03:49→23:45)
[2021-07-21 07:11] LABS: Glucose,Whole Blood 102 mg/dL (75-99)
[2021-07-21] MEDS: GABAPENTIN 300 MG CAP PO SCH ×2 (07:54→23:43)
[2021-07-21] MEDS: FAMOTIDINE 20 MG TAB PO SCH ×2 (07:54→23:43)
[2021-07-21] MEDS: APIXABAN 5 MG TAB PO SCH ×2 (07:54→17:16)
[2021-07-21] MEDS: METOPROLOL TARTRATE 50 MG TAB PO SCH ×2 (07:54→17:16)
[2021-07-21 11:39] LABS: Glucose,Whole Blood 158 mg/dL (75-99)
[2021-07-21] MEDS: COLLAGENASE 250 UNIT/GM OINTMENT 30 GM TUBE TOPICAL SCH (12:12)
--- NOTE | 2021-07-21 14:03 | P.PN ---
Subjective This is a pleasant 76 years old male with past medical history of CVA/TIA, Diabetes Mellitus, Deep Vein Thrombosis on Eliquis, Hypertension, Osteoar thritis, current wound left heel., states has DVT x3 in rt leg, past hx of diabetes and HTN, no longer requires rx since weight loss. TIA/CVA in 2010 residual muscle weakness in rt leg, wears brace rt leg Patient came from [facility], he wasn't sure why this and him but he was complaining of from pressure ulcer and pain in the back of his right hip with area of redness and tenderness and warmth. Denies any other symptoms. No chest pain or dyspnea. No coughing. No diarrhea or dysuria. No fever. 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 Vitals stable and patient is afebrile Labs including CBC, BMP are unremarkable. Coronal virus not detected CT of the abdomen and pelvis with contrast: There is increased subcutaneous density over the posterior sacrum on the right side. 6.2 x 1.7 cm. There is still 11 cm extending from the level of S3 vertebra to below coccyx. No focal b one destruction to suggest osteomyelitis. CT: No acute fracture or dislocation. Superficial and deep soft tissue swelling in the posterior aspect of the right thigh extending into the gluteus region with fat stranding in the presacral space. Findings consistent for cellulitis myositis with concern for pelvic extension In the emergency room patient received ceftriaxone and IV vancomycin. Also no rmal saline He was admitted with surgical team consult 07/20/2021 Patient awake. Vitals are stable. Labs are stable as well. The unit for surgical intervention by surgery team. There is no sacral abscess further recommendation is just pressure ulcer. Wound culture is growing gram-negative bacilli. Patient continued on gentle hydration Rocephin and IV vancomycin 07/21/2021 She is clinically stable. His sacral wound is growing gram-negative bacilli pending final culture Antibiotics with was adjusted to cefepime. Vancomycin was discontinued Objective - Vital Signs Vital signs: Vital Signs Temp 98.3 F 07/21/21 08:00 Pulse 76 07/21/21 08:00 Resp 18 07/21/21 08:00 BP 145/73 07/21/21 08:00 Pulse Ox 94 L 07/21/21 08:00 Intake & Output 07/20/21 07/21/21 07/21/21 18:59 06:59 18:59 Intake Total 750 Output Total 900 1260 Balance -150 -1260 Weight 78.018 kg Intake: Intake, IV Titration 750 Amount Sodium Chloride 0.9% 1, 750 000 ml @ 75 mls/hr IV . [id number] [facility] Rx#:[id number] Output: Urine 900 1260 Other: Voiding Method Urinal Urinal Diaper Diaper # Voids 3 # Bowel Movements 0 - Exam GENERAL: The patient is alert and oriented x3, not in any acute distress. Well developed, well nourished. HEENT: Pupils are round and equally reacting to light. EOMI. No scleral icterus. No conjunctival pallor. Normocephalic, atraumatic. No pharyngeal erythema. No thyromegaly. CARDIOVASCULAR: S1 and S2 present. No murmurs, rubs, or gallops. PULMONARY: Chest is clear to auscultation, no wheezing or crackles. ABDOMEN: Soft, nontender, nondistended, normoactive bowel sounds. No palpable organomegaly. MUSCULOSKELETAL: No joint swelling or deformity. Lower back pressure ulcers with purulent discharge. And there is surrounding area of redness, warmth and tenderness extending to the right lower buttock behind area of right hip -EXTREMITIES: No cyanosis, clubbing, or pedal edema. -NEUROLOGICAL: Fully awake and oriented. Gross neurological cranial nerves are grossly intact. He has chronic right leg and arm weakness. Meningeal signs are absent SKIN: No rashes. No petechiae - Labs CBC & Chem 7: 07/20/21 03:34 07/21/21 03:55 Labs: Abnormal Lab Results - Last 24 Hours (Table) 07/20/21 07/20/21 07/21/21 Range/Units 16:29 20:40 07:10 POC Glucose (mg/dL) 205 H 170 H 102 H (75-99) mg/dL 07/21/21 Range/Units 11:37 POC Glucose (mg/dL) 158 H (75-99) mg/dL Microbiology - Last 24 Hours (Table) 07/18/21 03:02 Gram Stain - Preliminary Other - Other Wound Culture - Preliminary Gram Neg Bacilli Assessment and Plan Assessment: Sacral pressure ulcer stage II rather than abscess. 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 Continue with antibiotics and follow-up culture. Continue with IV fluids Infectious disease consult Follow-up recommendation by surgery team Resume Eliquis Labs and medication were reviewed.. Continue same treatment. Continue with symptomatic treatment. Resume home medication. Monitor lytes and vitals. DVT and GI prophylaxis. Further recommendations depends on the clinical course of the patient DVT prophylaxis: SCD GI Prophylaxis: Pepcid
[2021-07-21 16:42] LABS: Glucose,Whole Blood 173 mg/dL (75-99)
--- NOTE | 2021-07-21 21:50 | PN ---
PROGRESS NOTE DATE OF SERVICE: 07/21/2021 REASON FOR FOLLOWUP: Infected sacral pressure ulcer. INTERVAL HISTORY: The patient is breathing comfortably. The patient denies having any chest pain or shortness of breath or cough. No nausea, no vomiting. No abdominal pain or any worsening pain to the sacral wound area. PHYSICAL EXAMINATION: Blood pressure 157/83 with a pulse of 73, temperature 98.3. He is 97% on room air. General description is an elderly male lying in bed in no distress. RESPIRATORY SYSTEM: Unlabored breathing. Clear to auscultation anteriorly. HEART: S1, S2. Regular rate and rhythm. ABDOMEN: Soft. No tenderness. EXTREMITIES: No edema of the feet. LABS: Local culture has been finalized with Pseudomonas. DIAGNOSTIC IMPRESSION AND PLAN: Patient with infected sacral pressure ulcer, stage III. There is no evidence of any bony destruction on the CT. Local culture with Pseudomonas. Patient is covered with cefepime. To get a PICC line. Plan for at least 3 to 4 weeks of IV antibiotic therapy on discharge and close outpatient followup. MMPENGL / SOON: [id number] /
[2021-07-21 22:19] LABS: Glucose,Whole Blood 136 mg/dL (75-99)
[2021-07-21] MEDS: QUEtiapine 25 MG TAB PO SCH (23:43)
[2021-07-21] MEDS: ATORVASTATIN 10 MG TAB PO SCH (23:43)
[2021-07-21] MEDS: DOXAZOSIN 4 MG TAB PO SCH (23:43)
[2021-07-21] MEDS: TAMSULOSIN 0.4 MG CAP.ER.24H PO SCH (23:44)
[2021-07-22] MEDS ORDERED: VANCOMYCIN TROUGH DUE 1 EACH MISC MISCELLANE ONE (05:00)
[2021-07-22] MEDS: SODIUM CHLORIDE 0.9% 1,000 ML IV SCH ×2 (05:27→22:08)
[2021-07-22 07:18] LABS: Glucose,Whole Blood 101 mg/dL (75-99)
[2021-07-22] MEDS: INSULIN ASPART (NovoLOG) 100 UNIT/ML VIAL SQ SCH ×4 (07:56→22:06)
[2021-07-22] MEDS: METOPROLOL TARTRATE 50 MG TAB PO SCH ×2 (08:07→16:53)
[2021-07-22] MEDS: GABAPENTIN 300 MG CAP PO SCH ×2 (08:07→22:06)
[2021-07-22] MEDS: FAMOTIDINE 20 MG TAB PO SCH ×2 (08:07→22:06)
[2021-07-22] MEDS: APIXABAN 5 MG TAB PO SCH ×2 (08:07→16:57)
[2021-07-22] MEDS: CEFEPIME 2 GM in SODIUM CHLORIDE 0.9% 100 ML IVPB SCH ×2 (08:07→16:53)
[2021-07-22] MEDS: HYDROcodone/APAP 7.5-325MG 1 EACH TAB PO PRN ×2 (10:55→19:35)
[2021-07-22] MEDS: COLLAGENASE 250 UNIT/GM OINTMENT 30 GM TUBE TOPICAL SCH (10:56)
[2021-07-22 11:25] LABS: Glucose,Whole Blood 146 mg/dL (75-99)
--- NOTE | 2021-07-22 15:55 | P.PN ---
Subjective This is a pleasant 76 years old male with past medical history of CVA/TIA, Diabetes Mellitus, Deep Vein Thrombosis on Eliquis, Hypertension, Osteoar thritis, current wound left heel., states has DVT x3 in rt leg, past hx of diabetes and HTN, no longer requires rx since weight loss. TIA/CVA in 2010 residual muscle weakness in rt leg, wears brace rt leg Patient came from [facility], he wasn't sure why this and him but he was complaining of from pressure ulcer and pain in the back of his right hip with area of redness and tenderness and warmth. Denies any other symptoms. No chest pain or dyspnea. No coughing. No diarrhea or dysuria. No fever. 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 Vitals stable and patient is afebrile Labs including CBC, BMP are unremarkable. Coronal virus not detected CT of the abdomen and pelvis with contrast: There is increased subcutaneous density over the posterior sacrum on the right side. 6.2 x 1.7 cm. There is still 11 cm extending from the level of S3 vertebra to below coccyx. No focal b one destruction to suggest osteomyelitis. CT: No acute fracture or dislocation. Superficial and deep soft tissue swelling in the posterior aspect of the right thigh extending into the gluteus region with fat stranding in the presacral space. Findings consistent for cellulitis myositis with concern for pelvic extension In the emergency room patient received ceftriaxone and IV vancomycin. Also no rmal saline He was admitted with surgical team consult 07/20/2021 Patient awake. Vitals are stable. Labs are stable as well. The unit for surgical intervention by surgery team. There is no sacral abscess further recommendation is just pressure ulcer. Wound culture is growing gram-negative bacilli. Patient continued on gentle hydration Rocephin and IV vancomycin 07/21/2021 She is clinically stable. His sacral wound is growing gram-negative bacilli pending final culture Antibiotics with was adjusted to cefepime. Vancomycin was discontinued 07/22/2021 Patient today states he feels better. He states his pain in the right hip area posteriorly is improving. It is the area where he had cellulitis from his pressure ulcer in the lower back. Wound culture is growing Pseudomonas and Cand bobo His antibiotics were Adjusted to cefepime yesterday. He had low-grade fever today 99.7. Creatinine stable at 1.1 Objective - Vital Signs Vital signs: Vital Signs Temp 98.3 F 07/22/21 14:00 Pulse 75 07/22/21 14:00 Resp 18 07/22/21 14:00 BP 121/67 07/22/21 14:00 Pulse Ox 97 07/22/21 14:00 Intake & Output 07/21/21 07/22/21 07/22/21 18:59 06:59 18:59 Intake Total 1080 Output Total 550 Balance 1080 -550 Intake: Oral 1080 Output: Urine 550 Other: Voiding Method Urinal Diaper # Voids 2 4 # Bowel Movements 3 - Exam GENERAL: The patient is alert and oriented x3, not in any acute distress. Well developed, well nourished. HEENT: Pupils are round and equally reacting to light. EOMI. No scleral icterus. No conjunctival pallor. Normocephalic, atraumatic. No pharyngeal erythema. No thyromegaly. CARDIOVASCULAR: S1 and S2 present. No murmurs, rubs, or gallops. PULMONARY: Chest is clear to auscultation, no wheezing or crackles. ABDOMEN: Soft, nontender, nondistended, normoactive bowel sounds. No palpable organomegaly. MUSCULOSKELETAL: No joint swelling or deformity. Lower back pressure ulcers with purulent discharge. And there is surrounding area of redness, warmth and tenderness extending to the right lower buttock behind area of right hip -EXTREMITIES: No cyanosis, clubbing, or pedal edema. -NEUROLOGICAL: Fully awake and oriented. Gross neurological cranial nerves are grossly intact. He has chronic right leg and arm weakness. Meningeal signs are absent SKIN: No rashes. No petechiae - Labs CBC & Chem 7: 07/20/21 03:34 07/22/21 05:50 Labs: Abnormal Lab Results - Last 24 Hours (Table) 07/21/21 07/21/21 07/22/21 Range/Units 16:40 22:08 07:07 POC Glucose (mg/dL) 173 H 136 H 101 H (75-99) mg/dL 07/22/21 Range/Units 11:23 POC Glucose (mg/dL) 146 H (75-99) mg/dL Microbiology - Last 24 Hours (Table) 07/18/21 03:02 Gram Stain - Final Other - Other Wound Culture - Final Pseudomonas aeruginosa Olivia albicans Assessment and Plan Assessment: Sacral pressure ulcer stage II rather than abscess. Secondary to Pseudomonas. 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 Continue with antibiotics Continue with IV fluids Infectious disease consult Follow-up recommendation by surgery team Resume Eliquis Labs and medication were reviewed.. Continue same treatment. Continue with symptomatic treatment. Resume home medication. Monitor lytes and vitals. DVT and GI prophylaxis. Further recommendations depends on the clinical course of the patient DVT prophylaxis: SCD GI Prophylaxis: Pepcid
[2021-07-22 16:30] LABS: Glucose,Whole Blood 119 mg/dL (75-99)
[2021-07-22 20:02] LABS: Glucose,Whole Blood 195 mg/dL (75-99)
--- NOTE | 2021-07-22 21:59 | PN ---
PROGRESS NOTE DATE OF SERVICE: 07/22/2021 REASON FOR FOLLOWUP: Infected sacral pressure ulcer. INTERVAL HISTORY: The patient is afebrile. The patient is breathing comfortably. Pain to the sacral area is currently controlled. No chest pain, shortness of breath or cough. No abdominal pain or significant diarrhea. PHYSICAL EXAMINATION: Blood pressure 143/83 with a pulse of 76, temperature of 98.3. He is 94% on room air. General description is an elderly male lying in bed in no distress. RESPIRATORY SYSTEM: Unlabored breathing. Clear to auscultation anteriorly. HEART: S1, S2. Regular rate and rhythm. ABDOMEN: Soft. No tenderness. LABS: Creatinine is 1.18. Wound culture with Pseudomonas and Olivia albicans. DIAGNOSTIC IMPRESSION AND PLAN: Patient with infected sacral pressure ulcer. Culture with Pseudomonas and Olivia which is more likely a colonizer. The patient is covered cefepime. To get a midline, antibiotic for 2 to 3 weeks close outpatient followup. MMODL / IJN: [id number] /
[2021-07-22] MEDS: QUEtiapine 25 MG TAB PO SCH (22:07)
[2021-07-22] MEDS: ATORVASTATIN 10 MG TAB PO SCH (22:07)
[2021-07-22] MEDS: TAMSULOSIN 0.4 MG CAP.ER.24H PO SCH (22:07)
[2021-07-22] MEDS: DOXAZOSIN 4 MG TAB PO SCH (22:08)
[2021-07-23] MEDS: CEFEPIME 2 GM in SODIUM CHLORIDE 0.9% 100 ML IVPB SCH ×2 (00:47→07:35)
[2021-07-23] MEDS: GABAPENTIN 300 MG CAP PO SCH (07:35)
[2021-07-23] MEDS: FAMOTIDINE 20 MG TAB PO SCH (07:35)
[2021-07-23] MEDS: METOPROLOL TARTRATE 50 MG TAB PO SCH (07:35)
[2021-07-23] MEDS: APIXABAN 5 MG TAB PO SCH (07:36)
[2021-07-23] MEDS: HYDROcodone/APAP 7.5-325MG 1 EACH TAB PO PRN (07:36)
[2021-07-23] MEDS: INSULIN ASPART (NovoLOG) 100 UNIT/ML VIAL SQ SCH ×2 (07:44→12:01)
[2021-07-23 07:52] LABS: Glucose,Whole Blood 90 mg/dL (75-99)
[2021-07-23] MEDS: SODIUM CHLORIDE 0.9% 1,000 ML IV SCH (10:14)
[2021-07-23 11:32] LABS: Glucose,Whole Blood 180 mg/dL (75-99)
--- NOTE | 2021-07-23 11:32 | CDI ---
Documentation Clarification Form Date: 07/23/2021 11:09:51 AM From: Kaykay Simpson RN, CCDS Admit Date: 07/20/2021 11:27:00 AM Patient Name: Ryan Lucas Visit Number: [id number] Discharge Date: ATTENTION: The Clinical Documentation Specialists (CDI) and [facility] Coding Staff appreciate your assistance in clarifying documentation. Please respond to the clarification below the line at the bottom and electronically sign. The CDI & [facility] Coding staff will review the response and follow-up if needed. Please note: Queries are made part of the Legal Health Record. If you have any questions, please contact the author of this message via ITS. Dr. Ken Ramos Conflicting documentation has been found in the medical record. As attending physician, please provide clarification. 07/19/21 ID: Patient did have a stage III sacral pressure ulcer with slough tissue minimal surrounding redness. 07/21/21 attending documentation and subsequent progress notes: Sacral pressure ulcer stage II. History/Risk Factors: Diabetes mellitus, CVA, Hypertension, DVT, Clinical Indicators: 76-year-old female present with complaint of wound on coccyx with current treatment. Conflicting document has been found in the medical related to stage of ulcer. 07/18 CT Abdomen/pelvis showed increased density in the subcutaneous tissues over the posterior sacrum in the midline and towards the right side. Treatment: Santyl followed y moist dressing daily Keep pressure off area Cefepime HCL 2 GM IVPB Q 8HRS Vancomycim 1,500 IVPB (07/19-07/20) Please clarify which diagnosis is most appropriate: [ ] Sacral pressure ulcer, stage III, with diabetes Mellitus [ ] Sacral pressure ulcer, stage II, with diabetes Mellitus [ ] Other (please specify) [ ] Unable to determine (Template Last Revised: November 2020) Sacral pressure ulcer, stage II. diabetes Mellitus is not thought to cause his pressure ulcer MTDD
[2021-07-23] MEDS: COLLAGENASE 250 UNIT/GM OINTMENT 30 GM TUBE TOPICAL SCH (12:01)
--- NOTE | 2021-07-23 13:27 | P.DS ---
Providers Date of admission: 07/20/21 11:27 Attending physician: Gisselle Campos Consults: 07/19/21 07:34 Consult Physician Urgent Consulting Provider: Pablito Lynne Consult Reason/Comments: Sacral abscess and right thigh cellulitis and myositis Do you want consulting provider notified?: Yes Primary care physician: Kar[facility] Course: 70-year-old male admitted for the infection of the sacral decubitus ulcer patient is found to have Pseudomonas and patient is being discharged on cefepime. Was a valid by infectious disease patient will need wound care. PHYSICAL EXAMINATION: GENERAL: The patient is alert and oriented x3, not in any acute distress. Thin built bit HEENT: Pupils are round and equally reacting to light. EOMI. No scleral icterus. No conjunctival pallor. Normocephalic, atraumatic. No pharyngeal erythema. No thyromegaly. CARDIOVASCULAR: S1 and S2 present. No murmurs, rubs, or gallops. PULMONARY: Chest is clear to auscultation, no wheezing or crackles. ABDOMEN: Soft, nontender, nondistended, normoactive bowel sounds. No palpable organomegaly. MUSCULOSKELETAL: No joint swelling or deformity. EXTREMITIES: No cyanosis, clubbing, or pedal edema. NEUROLOGICAL: Gross neurological examination did not reveal any focal deficits. But does have significant generalized weakness significant muscle atrophy SKIN: Sacral decubitus ulcer Sacral pressure ulcer stage II rather than abscess. Secondary to Pseudomonas. S Right thigh cellulitis and myositis Diabetes mellitus, patient's long-acting insulin is being discussed and reviewed as patient's blood sugars are very well controlled at this time patient will be just discharged on sliding scale insulin. Hypertension Hyperlipidemia History of CVA with right hemiparesis there is a right leg History of osteoarthritis History of deep venous thrombosis 3 on Eliquis Patient Condition at Discharge: Serious Plan - Discharge Summary Discharge Rx Participant: No New Discharge Prescriptions: New Cefepime [Maxipime] 2 gm IVPB Q8H #42 each Continue Atorvastatin [Lipitor] 10 mg PO HS@2100 Multivitamins, Thera [Multivitamin (formulary)] 1 tab PO DAILY@1700 Magnesium Oxide 400 mg PO DAILY@0800 Metoprolol Tartrate [Lopressor] 50 mg PO BID@0800,1700 Doxazosin [Cardura] 4 mg PO HS@2100 Acetaminophen Tab [Tylenol] 650 mg PO Q6HR PRN tab PRN Reason: Mild Pain Or Fever > 100.5 bisacodyL [Dulcolax] 10 mg RECTAL DAILY PRN PRN Reason: Constipation INSULIN LISPRO (humaLOG) [humaLOG] See Protocol SQ ACHS Tamsulosin HCl [Flomax] 0.4 mg PO HS@2100 Docusate [Colace] 100 mg PO DAILY PRN PRN Reason: Constipation Calcium Carbonate [Calcium] 600 mg PO BID@0800,1700 Omeprazole 20 mg PO DAILY@0800 Apixaban [Eliquis] 5 mg PO BID@0800,1700 Glucerna Shake 1 can PO TID@0800,1200,1700 Magnesium Hydroxide [Milk of Magnesia] 2,400 mg PO DAILY PRN PRN Reason: Constipation Na Phos,M-B/Na Phos,Di-Ba [Fleet Adult] 133 ml RECTAL DAILY PRN PRN Reason: Constipation QUEtiapine [SEROquel] 25 mg PO HS@2100 Changed Gabapentin [Neurontin] 300 mg PO BID@0800,2100 #10 cap HYDROcodone/APAP 7.5-325MG [[place] 7.5-325] 1 tab PO Q6H PRN #10 tab PRN Reason: Pain Discontinued Insulin Glargine,Hum.rec.anlog [Basaglar Kwikpen U-100] 8 unit SQ HS@2100 Cefuroxime Axetil [Ceftin] 500 mg PO BID@0800,1700 Discharge Medication List Atorvastatin [Lipitor] 10 mg PO HS@2100 10/29/18 [History] Multivitamins, Thera [Multivitamin (formulary)] 1 tab PO DAILY@1700 05/08/20 [History] Calcium Carbonate [Calcium] 600 mg PO BID@0800,1700 07/07/21 [History] Docusate [Colace] 100 mg PO DAILY PRN 07/07/21 [History] Doxazosin [Cardura] 4 mg PO HS@2100 07/07/21 [History] Magnesium Oxide 400 mg PO DAILY@0800 07/07/21 [History] Metoprolol Tartrate [Lopressor] 50 mg PO BID@0800,1700 07/07/21 [History] Omeprazole 20 mg PO DAILY@0800 07/07/21 [History] Tamsulosin HCl [Flomax] 0.4 mg PO HS@2100 07/07/21 [History] Acetaminophen Tab [Tylenol] 650 mg PO Q6HR PRN tab 07/11/21 [Rx] Apixaban [Eliquis] 5 mg PO BID@0800,1700 07/18/21 [History] Glucerna Shake 1 can PO TID@0800,1200,1700 07/18/21 [History] INSULIN LISPRO (humaLOG) [humaLOG] See Protocol SQ ACHS 07/18/21 [History] Magnesium Hydroxide [Milk of Magnesia] 2,400 mg PO DAILY PRN 07/18/21 [History] Na Phos,M-B/Na Phos,Di-Ba [Fleet Adult] 133 ml RECTAL DAILY PRN 07/18/21 [History] QUEtiapine [SEROquel] 25 mg PO HS@2100 07/18/21 [History] bisacodyL [Dulcolax] 10 mg RECTAL DAILY PRN 07/18/21 [History] Cefepime [Maxipime] 2 gm IVPB Q8H #42 each 07/23/21 [Rx] Gabapentin [Neurontin] 300 mg PO BID@0800,2100 #10 cap 07/23/21 [Rx] HYDROcodone/APAP 7.5-325MG [[place] 7.5-325] 1 tab PO Q6H PRN #10 tab 07/23/21 [Rx] Follow up Appointment(s)/Referral(s): Karina Camarillo DO [Primary Care Provider] - 3 Days Discharge Disposition: TRANSFER TO SNF/ECF
--- NOTE | 2021-07-23 15:20 | PN ---
PROGRESS NOTE DATE OF SERVICE: 07/23/2021. REASON FOR FOLLOWUP: Infected sacral pressure ulcer. INTERVAL HISTORY: The patient is afebrile. He is breathing comfortably. No chest pain, shortness of breath or cough. No abdominal pain. No worsening pain to the sacral wound area or diarrhea. PHYSICAL EXAMINATION: Blood pressure 164/78 with a pulse of 76, temperature 97.7. He is 94% on room air. General description is an elderly male lying in bed in no distress. RESPIRATORY SYSTEM: Unlabored breathing. Clear to auscultation anteriorly. HEART: S1, S2. Regular rate and rhythm. ABDOMEN: Soft. No tenderness. EXAMINATION OF SACRAL WOUND AREA: Much improvement. Redness has improved. Minimal slough tissue. LABS: Creatinine is 1.21. Local culture positive for Pseudomonas aeruginosa. DIAGNOSTIC IMPRESSION AND PLAN: Patient with an infected sacral pressure ulcer, stage III, to the sacral area with secondary cellulitis. Culture positive for Pseudomonas. Plan is for 2 weeks of IV cefepime. Local wound care with Santyl. Keep the area off pressure. MMODL / IJN: [id number] /
[2021-07-23 16:14] VITALS: BP 184/63; PULSE 71; RESP 14; TEMP 97.6
== END 2021-07-23 16:17 | DRG 593 ==
LOC: EC 16:21 → 4SSUR 07-19 01:18 → OBSVTOIN 07-20 11:27
PROVIDERS: ADMIT Hospitalist; ATTEND Hospitalist
PROC: 05HA33Z Insertion of Infusion Device into Left Brachial Vein, Percutaneous Approach (ICD-10-PCS; principal; 2021-07-23 16:00)
DX: L89.152 Pressure ulcer of sacral region, stage 2 (principal); L03.115 Cellulitis of right lower limb; I69.351 Hemiplegia and hemiparesis following cerebral infarction affecting right dominant side; M60.9 Myositis, unspecified; B96.5 Pseudomonas (aeruginosa) (mallei) (pseudomallei) as the cause of diseases classified elsewhere; E11.9 Type 2 diabetes mellitus without complications; E78.5 Hyperlipidemia, unspecified; I10 Essential (primary) hypertension; Z79.01 Long term (current) use of anticoagulants; Z20.822 Contact with and (suspected) exposure to COVID-19; Z79.899 Other long term (current) drug therapy; Z82.49 Family history of ischemic heart disease and other diseases of the circulatory system; Z86.718 Personal history of other venous thrombosis and embolism; Z95.810 Presence of automatic (implantable) cardiac defibrillator; Z96.641 Presence of right artificial hip joint; Z87.81 Personal history of (healed) traumatic fracture
CPT/HCPCS: 36410; 36415; 74177; 76937; 80048; 80053; 80202; 82565; 83605; 85025; 87070; 87077; 87186; 87205; 87635; 96365; 96366; 96375; 99285

== ENCOUNTER 2021-08-06 15:46 | Emergency (ER) | payer MEDICARE, OTHER ==
[2021-08-06 16:04] VITALS: RESP 18; TEMP 98.6
[2021-08-06] MEDS ORDERED: SODIUM CHLORIDE 0.9% 500 ML 500 ML IV ONE (16:15)
[2021-08-06 16:44] LABS: INR 1.3 (<1.2); Partial Thromboplastin Time 29.8 sec (22.0-30.0); Prothrombin Time 13.3 sec (9.0-12.0)
[2021-08-06 16:49] LABS: Albumin 3.3 g/dL (3.5-5.0); Calcium 8.7 mg/dL (8.4-10.2); Potassium 5.1 mmol/L (3.5-5.1); Total Bilirubin 0.4 mg/dL (0.2-1.3); Total Protein 7.6 g/dL (6.3-8.2)
[2021-08-06 16:54] LABS: Anisocytosis Slight; HCT 34.3 % (39.0-53.0); MCH 28.2 pg (25.0-35.0); MCHC 31.9 g/dL (31.0-37.0); MCV 88.3 fL (80.0-100.0); Mean Platelet Volume 11.1; Platelet Count 159 k/uL (150-450); RBC 3.89 m/uL (4.30-5.90); RDW 17.8 % (11.5-15.5); WBC 6.5 k/uL (3.8-10.6)
[2021-08-06 17:00] LABS: Glucose,Whole Blood 155 mg/dL (75-99)
[2021-08-06 17:14] LABS: Basophils # (M) 0.07 k/uL (0-0.2); Lymphocytes # (M) 1.56 k/uL (1.0-4.8); Monocytes # (M) 0.72 k/uL (0-1.0); Neutrophils # (M) 3.97 k/uL (1.3-7.7); Neutrophils % (M) 61 %; Nucleated Red Blood Cells 0 /100 WBC (0-0); Total Cells Counted 100
--- NOTE | 2021-08-06 17:58 | XR ---
EXAMINATION TYPE: XR chest 1V portable DATE OF EXAM: 08/06/2021 COMPARISON: 07/07/2021 HISTORY: Altered mental status TECHNIQUE: Single view FINDINGS: There is some atelectasis at both lung bases. There is left axillary pacemaker. There are c hest leads. There is no definite pleural effusion. There is no heart failure. There is cervical spine fusion surgery noted. IMPRESSION: There is some mild subsegmental atelectasis at the lung bases increased compared to old e xam. No heart failure.
--- NOTE | 2021-08-06 18:03 | ED ---
General Adult HPI - General Chief complaint: Altered Mental Status Stated complaint: Altered Mental Status Time Seen by Provider: 08/06/21 16:00 Source: patient, EMS, RN notes reviewed, old records reviewed Mode of arrival: EMS Limitations: no limitations - History of Present Illness Initial comments: 76-year-old male who is currently residing [facility] for treatment of significant decubitus ulcer which was known to be positive for Pseudomonas who is currently on cefepime. He had some increased confusion. He has a significant past medical history. He reports that his ulcer is improving he does have some pain but this is significantly better. He's had no fevers. He is able to give a fairly detailed history. He is alert and oriented 2 at the time of my history body is only off of the month thinking that is July 05July. Otherwise patient is alert. - Related Data Home Medications Medication Instructions Recorded Confirmed Atorvastatin [Lipitor] 10 mg PO HS@2100 10/29/18 08/06/21 Multivitamins, Thera [Multivitamin 1 tab PO DAILY@1700 05/08/20 08/06/21 (formulary)] Calcium Carbonate [Calcium] 600 mg PO BID@0800,1700 07/07/21 08/06/21 Docusate [Colace] 100 mg PO DAILY PRN 07/07/21 08/06/21 Doxazosin [Cardura] 4 mg PO HS@2100 07/07/21 08/06/21 Magnesium Oxide 400 mg PO DAILY@0800 07/07/21 08/06/21 Metoprolol Tartrate [Lopressor] 50 mg PO BID@0800,1700 07/07/21 08/06/21 Omeprazole 20 mg PO DAILY@0800 07/07/21 08/06/21 Tamsulosin HCl [Flomax] 0.4 mg PO HS@2100 07/07/21 08/06/21 Apixaban [Eliquis] 5 mg PO BID@0800,1700 07/18/21 08/06/21 Glucerna Shake 1 can PO TID@0800,1200,1700 07/18/21 08/06/21 INSULIN LISPRO (humaLOG) [humaLOG] See Protocol SQ ACHS 07/18/21 08/06/21 Na Phos,M-B/Na Phos,Di-Ba [Fleet 133 ml RECTAL DAILY PRN 07/18/21 08/06/21 Adult] bisacodyL [Dulcolax] 10 mg RECTAL DAILY PRN 07/18/21 08/06/21 Collagenase [Santyl] 1 applic TOPICAL DAILY 08/06/21 08/06/21 Colloidal Oatmeal [Eucerin Eczema 1 applic TOPICAL DAILY 08/06/21 08/06/21 Relief] Lidocaine 5% Oint [Xylocaine 5% 1 applic TOPICAL WE 08/06/21 08/06/21 Oint] Magnesium Hydroxide [Milk of 2,400 mg PO DAILY PRN 08/06/21 08/06/21 Magnesia] Previous Rx's Medication Instructions Recorded Acetaminophen Tab [Tylenol] 650 mg PO Q6HR PRN tab 07/11/21 Cefepime [Maxipime] 2 gm IVPB Q8H #42 each 07/23/21 Gabapentin [Neurontin] 300 mg PO BID@0800,2100 #10 cap 07/23/21 HYDROcodone/APAP 7.5-325MG [[place] 1 tab PO Q6H PRN #10 tab 07/23/21 7.5-325] Allergies Allergy/AdvReac Type Severity Reaction Status Date / Time No Known Allergies Allergy Verified 08/06/21 17:40 Review of Systems ROS Statement: Those systems with pertinent positive or pertinent negative responses have been documented in the HPI. ROS Other: All systems not noted in ROS Statement are negative. Past Medical History Past Medical History: CVA/TIA, Diabetes Mellitus, Deep Vein Thrombosis (DVT), Hypertension, Osteoarthritis (OA) Additional Past Medical History / Comment(s): [facility] patient, states has DVT x3 in rt leg, past hx of diabetes and HTN, no longer requires rx since weight loss. states TIA in 2010 residual muscle weakness in rt leg, wears brace rt leg, uti . 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 History of Any Multi-Drug Resistant Organisms: MRSA Date of last positivie culture/infection: 02/08/19 MDRO Source:: left foot Past Surgical History: Back Surgery, Hernia Repair, Orthopedic Surgery, Pacemaker Additional Past Surgical History / Comment(s): cervical fusion, right hip replacement, cataract surgery Past Anesthesia/Blood Transfusion Reactions: No Reported Reaction Type of Cardiac Device: Permanent Pacemaker, AICD, Unknown Device Placement Date:: May 2018 Past Psychological History: No Psychological Hx Reported Smoking Status: Never smoker Past Alcohol Use History: None Reported Past Drug Use History: None Reported - Past Family History Mother Family Medical History: Cancer Father Family Medical History: Cancer, Coronary Artery Disease (CAD) General Exam Limitations: no limitations General appearance: alert, in no apparent distress Head exam: Present: atraumatic, normocephalic Eye exam: Present: normal appearance, PERRL ENT exam: Present: normal exam Neck exam: Present: normal inspection. Absent: tenderness Respiratory exam: Present: normal lung sounds bilaterally. Absent: respiratory distress, wheezes Cardiovascular Exam: Present: regular rate, normal rhythm GI/Abdominal exam: Present: soft. Absent: distended, tenderness, guarding, rebound Rectal exam: Present: other (Sacral decubitus ulcer, dressing is clean and dry. There is no surrounding cellulitis) exam: Present: vertical testicular lie. Absent: testicular tenderness, scrotal swelling Extremities exam: Present: normal inspection. Absent: normal capillary refill, pedal edema Neurological exam: Present: alert. Absent: oriented X3 (Oriented 2 but only mildly confused as to the month) Psychiatric exam: Present: normal affect, normal mood Skin exam: Present: warm, dry, intact Course Vital Signs 08/06/21 15:49 Temperature 98.6 F Pulse Rate 77 Respiratory 18 Rate Blood Pressure 148/67 O2 Sat by Pulse 95 Oximetry EKG Findings - EKG Comments: EKG Findings:: EKG normal sinus rhythm, right bundle branch block, rate is 74, ND interval 146, QRS duration 1:30, QTC [address] segment elevation. Medical Decision Making - Medical Decision Making I did workup this patient in the emergency department including CBC, CMP, urinalysis, chest x-ray, and head CT. Head CT is negative for intracranial hemorrhage. There is no mass effect. Chest x-ray shows some mild atelectasis. He has a normal white blood cell count, improved hemoglobin. Mild elevation in creatinine and BUN which is essentially at baseline. Normal urinalysis. His vital signs are stable. Patient is mildly confused but actually quite alert and able to give detailed history. I do feel he is stable for discharge back to the [facility] where he can be closely monitored. - Lab Data Result diagrams: 08/06/21 16:22 08/06/21 16:22 Lab Results 08/06/21 08/06/2108/06/21 Range/Units 16:22 16:22 16:22 WBC 6.5 (3.8-10.6) k/uL RBC 3.89 L (4.30-5.90) m/uL Hgb 11.0 L (13.0-17.5) gm/dL Hct 34.3 L (39.0-53.0) % MCV 88.3 (80.0-100.0) fL MCH 28.2 (25.0-35.0) pg MCHC 31.9 (31.0-37.0) g/dL RDW 17.8 H (11.5-15.5) % Plt Count 159 (150-450) k/uL MPV 11.1 Neutrophils % (Manual) 61 % Lymphocytes % (Manual) 24 % Monocytes % (Manual) 11 % Eosinophils % (Manual) 3 % Basophils % (Manual) 1 % Neutrophils # (Manual) 3.97 (1.3-7.7) k/uL Lymphocytes # (Manual) 1.56 (1.0-4.8) k/uL Monocytes # (Manual) 0.72 (0-1.0) k/uL Eosinophils # (Manual) 0.20 (0-0.7) k/uL Basophils # (Manual) 0.07 (0-0.2) k/uL Nucleated RBCs 0 (0-0) /100 WBC Manual Slide Review Performed Anisocytosis Slight PT 13.3 H (9.0-12.0) sec INR 1.3 H (<1.2) APTT 29.8 (22.0-30.0) sec Sodium (137-145) mmol/L Potassium (3.5-5.1) mmol/L Chloride (98-107) mmol/L Carbon Dioxide (22-30) mmol/L Anion Gap mmol/L BUN (9-20) mg/dL Creatinine (0.66-1.25) mg/dL Est GFR (CKD-EPI)AfAm (>60 ml/min/1.73 sqM) Est GFR (CKD-EPI)NonAf (>60 ml/min/1.73 sqM) Glucose (74-99) mg/dL POC Glucose (mg/dL) (75-99) mg/dL POC Glu Supervisor [employer] ID Calcium (8.4-10.2) mg/dL Total Bilirubin (0.2-1.3) mg/dL AST (17-59) U/L ALT (4-49) U/L Alkaline Phosphatase (38-126) U/L Total Protein (6.3-8.2) g/dL Albumin (3.5-5.0) g/dL Urine Color Light Yellow Urine Appearance Clear (Clear) Urine pH 6.5 (5.0-8.0) Ur Specific [place] 1.011 (1.001-1.035) Urine Protein 1+ H (Negative) Urine Glucose (UA) Negative (Negative) Urine Ketones Negative (Negative) Urine Blood Small H (Negative) Urine Nitrite Negative (Negative) Urine Bilirubin Negative (Negative) Urine Urobilinogen <2.0 (<2.0) mg/dL Ur Leukocyte Esterase Negative (Negative) Urine WBC <1 (0-5) /hpf Urine Mucus Rare H (None) /hpf 08/06/21 08/06/21 Range/Units 16:22 16:58 WBC (3.8-10.6) k/uL RBC (4.30-5.90) m/uL Hgb (13.0-17.5) gm/dL Hct (39.0-53.0) % MCV (80.0-100.0) fL MCH (25.0-35.0) pg MCHC (31.0-37.0) g/dL RDW (11.5-15.5) % Plt Count (150-450) k/uL MPV Neutrophils % (Manual) % Lymphocytes % (Manual) % Monocytes % (Manual) % Eosinophils % (Manual) % Basophils % (Manual) % Neutrophils # (Manual) (1.3-7.7) k/uL Lymphocytes # (Manual) (1.0-4.8) k/uL Monocytes # (Manual) (0-1.0) k/uL Eosinophils # (Manual) (0-0.7) k/uL Basophils # (Manual) (0-0.2) k/uL Nucleated RBCs (0-0) /100 WBC Manual Slide Review Anisocytosis PT (9.0-12.0) sec INR (<1.2) APTT (22.0-30.0) sec Sodium 136 L (137-145) mmol/L Potassium 5.1 (3.5-5.1) mmol/L Chloride 102 (98-107) mmol/L Carbon Dioxide 26 (22-30) mmol/L Anion Gap 8 mmol/L BUN 40 H (9-20) mg/dL Creatinine 1.57 H (0.66-1.25) mg/dL Est GFR (CKD-EPI)AfAm 48 (>60 ml/min/1.73 sqM) Est GFR (CKD-EPI)NonAf 42 (>60 ml/min/1.73 sqM) Glucose 183 H (74-99) mg/dL POC Glucose (mg/dL) 155 H (75-99) mg/dL POC Glu Supervisor [employer] ID Zaida Elmore Calcium 8.7 (8.4-10.2) mg/dL Total Bilirubin 0.4 (0.2-1.3) mg/dL AST 24 (17-59) U/L ALT 21 (4-49) U/L Alkaline Phosphatase 73 (38-126) U/L Total Protein 7.6 (6.3-8.2) g/dL Albumin 3.3 L (3.5-5.0) g/dL Urine Color Urine Appearance (Clear) Urine pH (5.0-8.0) Ur Specific [place] (1.001-1.035) Urine Protein (Negative) Urine Glucose (UA) (Negative) Urine Ketones (Negative) Urine Blood (Negative) Urine Nitrite (Negative) Urine Bilirubin (Negative) Urine Urobilinogen (<2.0) mg/dL Ur Leukocyte Esterase (Negative) Urine WBC (0-5) /hpf Urine Mucus (None) /hpf Disposition Clinical Impression: Stage III pressure ulcer of sacral region, Confusion Disposition: HOME SELF-CARE Condition: Fair Instructions (If sedation given, give patient instructions): Altered Mental Status (ED) Is patient prescribed a controlled substance at d/c from ED?: No Referrals: Karina Camarillo DO [Primary Care Provider] - 1-2 days Time of Disposition: 19:08
[2021-08-06 18:30] LABS: Appearance,Urine Clear (Clear); Bilirubin,Urine Negative (Negative); Blood,Urine Small (Negative); Color,Urine Light Yellow; Glucose,Urine (UA) Negative (Negative); Ketones,Urine Negative (Negative); Leukocyte Esterase,Urine Negative (Negative); Mucus,Urine Rare /hpf; Nitrite,Urine Negative (Negative); PH, Urine 6.5 (5.0-8.0); Protein,Urine 1+ (Negative); Specific Gravity,Urine 1.011 (1.001-1.035); Urobilinogen,Urine <2.0 mg/dL (<2.0); WBC,Urine <1 /hpf (0-5)
--- NOTE | 2021-08-06 18:45 | CT ---
EXAMINATION TYPE: CT brain wo con DATE OF EXAM: 08/06/2021 COMPARISON: None HISTORY: Altered mental status. CT DLP: 1276.4 mGycm Automated exposure control for dose reduction was used. There is some cerebral cortical atrophy. There is no mass effect nor midline shift. There is no evide nce of intracranial hemorrhage. Calvarium is intact. There is normal aeration of the mastoid sinuses. IMPRESSION: Cerebral atrophy. No acute intracranial abnormality.
[2021-08-06 19:19] VITALS: BP 142/72; PULSE 78
== END 2021-08-06 21:30 | disposition home or self-care (01) ==
LOC: EC 15:46
DX: L89.153 Pressure ulcer of sacral region, stage 3 (principal); R41.0 Disorientation, unspecified; E11.9 Type 2 diabetes mellitus without complications; I10 Essential (primary) hypertension; M19.90 Unspecified osteoarthritis, unspecified site; Z86.73 Personal history of transient ischemic attack (TIA), and cerebral infarction without residual deficits; Z86.718 Personal history of other venous thrombosis and embolism; Z95.0 Presence of cardiac pacemaker; Z79.4 Long term (current) use of insulin; Z79.899 Other long term (current) drug therapy; Z79.01 Long term (current) use of anticoagulants
CPT/HCPCS: 36415; 70450; 71045; 80053; 81001; 85025; 85610; 85730; 93005; 99285

== ENCOUNTER 2021-09-03 12:31 | Observation (INO) | payer MEDICARE, OTHER ==
[2021-09-03] MEDS ORDERED: SODIUM CHLORIDE 0.9% 1,000 ML IV STA (12:48)
[2021-09-03] MEDS ORDERED: HYDROcodone/APAP 7.5-325MG 1 EACH TAB PO ONE (13:40)
[2021-09-03 14:22] LABS: Total Bilirubin 0.8 mg/dL (0.2-1.3); Total Protein 8.6 g/dL (6.3-8.2)
[2021-09-03 14:23] LABS: Potassium 5.4 mmol/L (3.5-5.1)
[2021-09-03 14:25] LABS: Anisocytosis Slight; Basophils % (A) 0 %; Eosinophils # (A) 0.1 k/uL (0-0.7); Eosinophils % (A) 1 %; HCT 40.2 % (39.0-53.0); Hypochromasia Slight; INR 1.2 (<1.2); Lymphocytes # (A) 0.7 k/uL (1.0-4.8); Lymphocytes % (A) 6 %; MCH 30.7 pg (25.0-35.0); MCHC 32.4 g/dL (31.0-37.0); Mean Platelet Volume 9.5; Monocytes # (A) 1.2 k/uL (0-1.0); Monocytes % (A) 10 %; Neutrophils # (A) 9.8 k/uL (1.3-7.7); Neutrophils % (A) 82 %; Partial Thromboplastin Time 25.3 sec (22.0-30.0); Platelet Count 188 k/uL (150-450); Prothrombin Time 12.4 sec (9.0-12.0); RBC 4.24 m/uL (4.30-5.90); RDW 17.2 % (11.5-15.5); WBC 12.1 k/uL (3.8-10.6)
[2021-09-03 14:34] LABS: MCV 94.9 fL (80.0-100.0)
--- NOTE | 2021-09-03 15:04 | XR ---
EXAMINATION TYPE: XR chest 2V DATE OF EXAM: 09/03/2021 HISTORY: Shortness of breath. COMPARISON: 08/06/2021 TECHNIQUE: Single view of the chest is submitted. FINDINGS: Demonstrated are scattered senescent parenchymal change. There is no evidence for focal infiltrate. The heart is stable. Hilar and mediastinal structures are within normal limits. Degenerative changes are seen of the dorsal spine. IMPRESSION: 1. Chronic changes without evidence for acute pulmonary disease.
[2021-09-03] MEDS ORDERED: HYDROmorphone 0.5 MG/0.5 ML SYRINGE IVP PRN (16:46)
[2021-09-03] MEDS ORDERED: NALOXONE 0.4 MG/ML 1 ML VIAL IV PRN (16:46)
--- NOTE | 2021-09-03 16:46 | ED ---
General Adult HPI - General Chief complaint: Fall Stated complaint: Weakness Time Seen by Provider: 09/03/21 12:44 Source: patient, EMS, RN notes reviewed Mode of arrival: EMS Limitations: physical limitation - History of Present Illness Initial comments: Is a 76-year-old gentleman that presents to the emergency department complaining of generalized weakness. He notes that he is having difficulty transferring himself at home. Family notes that he does live by himself. Family also notes that they're trying to find placement for him. Patient otherwise is well- appearing mildly dehydrated. He denied any chest pain shortness of breath headache nausea vomiting diarrhea constipation fever fatigue chills. Patient does have a chronic nonhealing decubitus ulcer. - Related Data Home Medications Medication Instructions Recorded Confirmed Atorvastatin [Lipitor] 10 mg PO HS 10/29/18 09/03/21 Multivitamins, Thera [Multivitamin 1 tab PO DAILY@1700 05/08/20 09/03/21 (formulary)] Calcium Carbonate [Calcium] 600 mg PO BID@0800,1700 07/07/21 09/03/21 Docusate [Colace] 100 mg PO DAILY PRN 07/07/21 09/03/21 Doxazosin [Cardura] 4 mg PO HS 07/07/21 09/03/21 Magnesium Oxide 400 mg PO DAILY 07/07/21 09/03/21 Metoprolol Tartrate [Lopressor] 50 mg PO BID@0800,1700 07/07/21 09/03/21 Omeprazole 20 mg PO DAILY 07/07/21 09/03/21 Tamsulosin HCl [Flomax] 0.4 mg PO HS 07/07/21 09/03/21 Apixaban [Eliquis] 5 mg PO BID@0800,1700 07/18/21 09/03/21 INSULIN LISPRO (humaLOG) [humaLOG] See Protocol SQ ACHS 07/18/21 09/03/21 Gabapentin [Neurontin] 300 mg PO BID 09/03/21 09/03/21 Previous Rx's Medication Instructions Recorded Acetaminophen Tab [Tylenol] 650 mg PO Q6HR PRN tab 07/11/21 HYDROcodone/APAP 7.5-325MG [[place] 1 tab PO Q6H PRN #10 tab 07/23/21 7.5-325] Allergies Allergy/AdvReac Type Severity Reaction Status Date / Time No Known Allergies Allergy Verified 09/03/21 13:52 Review of Systems ROS Statement: Those systems with pertinent positive or pertinent negative responses have been documented in the HPI. ROS Other: All systems not noted in ROS Statement are negative. Past Medical History Past Medical History: CVA/TIA, Diabetes Mellitus, Deep Vein Thrombosis (DVT), Hypertension, Osteoarthritis (OA) Additional Past Medical History / Comment(s): wound center patient, states has DVT x3 in rt leg, past hx of diabetes and HTN, no longer requires rx since weight loss. states TIA in 2010 residual muscle weakness in rt leg, wears brace rt leg, uti . 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 History of Any Multi-Drug Resistant Organisms: MRSA Date of last positivie culture/infection: 02/08/19 MDRO Source:: left foot Past Surgical History: Back Surgery, Hernia Repair, Orthopedic Surgery, Pac emaker Additional Past Surgical History / Comment(s): cervical fusion, right hip replacement, cataract surgery Past Anesthesia/Blood Transfusion Reactions: No Reported Reaction Type of Cardiac Device: Permanent Pacemaker, AICD, Unknown Device Placement Date:: May 2018 Past Psychological History: No Psychological Hx Reported Smoking Status: Never smoker Past Alcohol Use History: None Reported Past Drug Use History: None Reported - Past Family History Mother Family Medical History: Cancer Father Family Medical History: Cancer, Coronary Artery Disease (CAD) General Exam Limitations: physical limitation General appearance: alert, in no apparent distress, other (did appear to be mildly dehydrated.) Head exam: Present: atraumatic, normocephalic, normal inspection Eye exam: Present: normal appearance, PERRL, EOMI. Absent: scleral icterus, conjunctival injection, periorbital swelling ENT exam: Present: normal exam, mucous membranes moist Neck exam: Present: normal inspection Respiratory exam: Present: normal lung sounds bilaterally. Absent: respiratory distress, wheezes, rales, rhonchi, stridor Cardiovascular Exam: Present: regular rate, normal rhythm, normal heart sounds. Absent: systolic murmur, diastolic murmur, rubs, gallop, clicks GI/Abdominal exam: Present: soft, normal bowel sounds. Absent: distended, tenderness, guarding, rebound, rigid Extremities exam: Present: normal inspection, full ROM, normal capillary refill. Absent: tenderness, pedal edema, joint swelling, calf tenderness Neurological exam: Present: alert, oriented X3 Psychiatric exam: Present: normal affect, normal mood Skin exam: Present: warm, dry, intact, normal color, other (Nonhealing chronic decubitus ulcer on the sacrum. No purulent drainage or signs or symptoms of infection.). Absent: rash Course Vital Signs 09/03/21 09/03/21 12:35 12:44 Temperature 97.5 F L Pulse Rate 98 94 Pulse Rate [ 98 Absorption Plant Operator ] Respiratory 18 16 Rate Blood Pressure 131/106 116/78 O2 Sat by Pulse 96 95 Oximetry EKG Findings - EKG Comments: EKG Findings:: Ventricular rate 100 bpm, [place] interval 134 ms, QRS duration 120 ms, QTC 469 ms, PRT axes 46/100/18, normal sinus rhythm, right bundle branch block, abnormal ECG. Medical Decision Making - Medical Decision Making 76-year-old male complaining of generalized weakness and difficulty taking care of himself at home. Labs, chest x-ray, EKG, news technical director, 1 L normal saline ordered. Patient does take [place] 7.5 at home and was requesting that due to pain from his ulcer. Labs: Mild elevated white blood cells at 12.1, worsening BUN and creatinine, urinalysis negative. Chest x-ray shows no acute process. Case discussed with Dr. Philippe, patient will be admitted for observation. Alber Yip was consulted from [facility] and accepted the admit. - Lab Data Result diagrams: 09/03/21 13:54 09/03/21 13:54 Lab Results 09/03/21 09/03/21 09/03/21 Range/Units 13:54 13:54 13:54 WBC 12.1 H (3.8-10.6) k/uL RBC 4.24 L (4.30-5.90) m/uL Hgb 13.0 (13.0-17.5) gm/dL Hct 40.2 (39.0-53.0) % MCV 94.9 D (80.0-100.0) fL MCH 30.7 (25.0-35.0) pg MCHC 32.4 (31.0-37.0) g/dL RDW 17.2 H (11.5-15.5) % Plt Count 188 (150-450) k/uL MPV 9.5 Neutrophils % 82 % Lymphocytes % 6 % Monocytes % 10 % Eosinophils % 1 % Basophils % 0 % Neutrophils # 9.8 H (1.3-7.7) k/uL Lymphocytes # 0.7 L (1.0-4.8) k/uL Monocytes # 1.2 H (0-1.0) k/uL Eosinophils # 0.1 (0-0.7) k/uL Basophils # 0.0 (0-0.2) k/uL Hypochromasia Slight Anisocytosis Slight PT 12.4 H (9.0-12.0) sec INR 1.2 H (<1.2) APTT 25.3 (22.0-30.0) sec Sodium 140 (137-145) mmol/L Potassium 5.4 H (3.5-5.1) mmol/L Chloride 109 H (98-107) mmol/L Carbon Dioxide 16 L (22-30) mmol/L Anion Gap 15 mmol/L BUN 39 H (9-20) mg/dL Creatinine 1.92 H (0.66-1.25) mg/dL Est GFR (CKD-EPI)AfAm 38 (>60 ml/min/1.73 sqM) Est GFR (CKD-EPI)NonAf 33 (>60 ml/min/1.73 sqM) Glucose 75 (74-99) mg/dL Plasma Lactic Acid Jason (0.7-2.0) mmol/L Calcium 9.0 (8.4-10.2) mg/dL Total Bilirubin 0.8 (0.2-1.3) mg/dL AST 27 (17-59) U/L ALT 11 (4-49) U/L Alkaline Phosphatase 69 (38-126) U/L Troponin I (0.000-0.034) ng/mL Total Protein 8.6 H (6.3-8.2) g/dL Albumin 4.0 (3.5-5.0) g/dL 09/03/21 09/03/21 Range/Units 13:54 13:54 WBC (3.8-10.6) k/uL RBC (4.30-5.90) m/uL Hgb (13.0-17.5) gm/dL Hct (39.0-53.0) % MCV (80.0-100.0) fL MCH (25.0-35.0) pg MCHC (31.0-37.0) g/dL RDW (11.5-15.5) % Plt Count (150-450) k/uL MPV Neutrophils % % Lymphocytes % % Monocytes % % Eosinophils % % Basophils % % Neutrophils # (1.3-7.7) k/uL Lymphocytes # (1.0-4.8) k/uL Monocytes # (0-1.0) k/uL Eosinophils # (0-0.7) k/uL Basophils # (0-0.2) k/uL Hypochromasia Anisocytosis PT (9.0-12.0) sec INR (<1.2) APTT (22.0-30.0) sec Sodium (137-145) mmol/L Potassium (3.5-5.1) mmol/L Chloride (98-107) mmol/L Carbon Dioxide (22-30) mmol/L Anion Gap mmol/L BUN (9-20) mg/dL Creatinine (0.66-1.25) mg/dL Est GFR (CKD-EPI)AfAm (>60 ml/min/1.73 sqM) Est GFR (CKD-EPI)NonAf (>60 ml/min/1.73 sqM) Glucose (74-99) mg/dL Plasma Lactic Acid Jason 1.0 (0.7-2.0) mmol/L Calcium (8.4-10.2) mg/dL Total Bilirubin (0.2-1.3) mg/dL AST (17-59) U/L ALT (4-49) U/L Alkaline Phosphatase (38-126) U/L Troponin I <0.012 (0.000-0.034) ng/mL Total Protein (6.3-8.2) g/dL Albumin (3.5-5.0) g/dL - Radiology Data Radiology results: report reviewed, image reviewed Chest x-ray: Chronic changes without acute pulmonary process. Disposition Clinical Impression: Fall, Dehydration, Acute kidney injury Disposition: ADMITTED IP TO THIS [facility] Condition: Stable Is patient prescribed a controlled substance at d/c from ED?: No Referrals: Karina Camarillo DO [Primary Care Provider] - 1-2 days Time of Disposition: 16:46
[2021-09-03] MEDS: SODIUM CHLORIDE 0.9% 1,000 ML IV SCH (19:58)
[2021-09-03] MEDS ORDERED: ACETAMINOPHEN TAB 325 MG TAB PO PRN (22:38)
[2021-09-03] MEDS ORDERED: DOCUSATE 100 MG CAP PO PRN (23:15)
[2021-09-03 23:30] LABS: Appearance,Urine Clear (Clear); Bacteria,Urine Occasional /hpf; Bilirubin,Urine Negative (Negative); Blood,Urine Negative (Negative); Budding Yeast,Urine Occasional /hpf; Color,Urine Yellow; Glucose,Urine (UA) 2+ (Negative); Ketones,Urine Trace (Negative); Leukocyte Esterase,Urine Large (Negative); Nitrite,Urine Negative (Negative); Protein,Urine 1+ (Negative); RBC,Urine 6 /hpf (0-5); Specific Gravity,Urine 1.015 (1.001-1.035); Urobilinogen,Urine <2.0 mg/dL (<2.0); WBC,Urine 57 /hpf (0-5)
[2021-09-04] MEDS: SODIUM CHLORIDE 0.9% 1,000 ML IV SCH ×4 (01:31→22:56)
[2021-09-04] MEDS ORDERED: INSULIN ASPART (NovoLOG) 100 UNIT/ML VIAL SQ SCH (07:30)
[2021-09-04 07:38] LABS: Glucose,Whole Blood 161 mg/dL (75-99)
[2021-09-04] MEDS: INSULIN ASPART (NovoLOG) 100 UNIT/ML VIAL SQ SCH ×4 (08:04→21:32)
[2021-09-04] MEDS: CALCIUM CARBONATE 500 MG CHEWABLE PO SCH ×2 (08:04→16:39)
[2021-09-04] MEDS: PANTOPRAZOLE 40 MG TABLET PO SCH (08:05)
[2021-09-04] MEDS: HYDROcodone/APAP 7.5-325MG 1 EACH TAB PO PRN ×3 (08:05→20:17)
[2021-09-04] MEDS: MAGNESIUM OXIDE 400 MG TAB PO SCH (08:05)
[2021-09-04] MEDS: APIXABAN 5 MG TAB PO SCH ×2 (08:05→16:40)
[2021-09-04] MEDS: METOPROLOL TARTRATE 50 MG TAB PO SCH ×2 (08:05→16:39)
[2021-09-04 08:35] LABS: African American GFR (CKD) 51 (>60 ml/min/1.73 sqM); Anion Gap 9 mmol/L; Blood Urea Nitrogen 30 mg/dL (9-20); Calcium 8.1 mg/dL (8.4-10.2); Carbon Dioxide 17 mmol/L (22-30); Chloride 109 mmol/L (98-107); Glucose 158 mg/dL (74-99); Non-African American GFR(CKD) 44 (>60 ml/min/1.73 sqM); Potassium 4.8 mmol/L (3.5-5.1); Sodium 135 mmol/L (137-145)
[2021-09-04] MEDS ORDERED: GABAPENTIN 300 MG CAP PO SCH (09:00)
[2021-09-04 12:33] LABS: Glucose,Whole Blood 112 mg/dL (75-99)
[2021-09-04 13:50] VITALS: BMI 20.9
[2021-09-04] MEDS: MULTIVITAMINS, THERA 1 EACH TAB PO SCH (16:39)
[2021-09-04 17:22] LABS: Glucose,Whole Blood 133 mg/dL (75-99)
[2021-09-04] MEDS: GABAPENTIN 100 MG CAP PO SCH (20:16)
[2021-09-04] MEDS: TAMSULOSIN 0.4 MG CAP.ER.24H PO SCH (20:16)
[2021-09-04] MEDS: DOXAZOSIN 4 MG TAB PO SCH (20:16)
[2021-09-04] MEDS: ATORVASTATIN 10 MG TAB PO SCH (20:16)
[2021-09-04 21:06] LABS: Glucose,Whole Blood 175 mg/dL (75-99)
[2021-09-05 07:52] LABS: Glucose,Whole Blood 144 mg/dL (75-99)
[2021-09-05] MEDS: GABAPENTIN 100 MG CAP PO SCH ×2 (08:46→19:53)
[2021-09-05] MEDS: INSULIN ASPART (NovoLOG) 100 UNIT/ML VIAL SQ SCH ×4 (08:46→20:31)
[2021-09-05] MEDS: APIXABAN 5 MG TAB PO SCH ×2 (08:46→16:12)
[2021-09-05] MEDS: MAGNESIUM OXIDE 400 MG TAB PO SCH (08:46)
[2021-09-05] MEDS: METOPROLOL TARTRATE 50 MG TAB PO SCH ×2 (08:46→16:13)
[2021-09-05] MEDS: PANTOPRAZOLE 40 MG TABLET PO SCH (08:46)
[2021-09-05] MEDS: CALCIUM CARBONATE 500 MG CHEWABLE PO SCH ×2 (08:46→16:13)
[2021-09-05] MEDS: HYDROcodone/APAP 7.5-325MG 1 EACH TAB PO PRN ×3 (08:47→22:01)
[2021-09-05] MEDS: CHOLESTYRAMINE (WITH SUGAR) 4 GM PACKET PO SCH ×3 (08:47→18:18)
--- NOTE | 2021-09-05 11:16 | P.CONS ---
History of Present Illness - Reason for Consult Consult date: 09/05/21 wound care - History of Present Illness This is a 76-year-old patient who was previously resident of [facility]. He is currently at home. He is being evaluated for a nonhealing sacral pressure ulceration on 6 N. P patient was seen Dr. Clemons for wound care at [facility] there are utilizing Santyl. He is continues to Santyl at home with homecare. Patient has a ulceration to the left forearm that is a non-pressure ulcer Limited to skin breakdown measuring approximately 1 x 1 x 0.1 cm. Patient also has a pressure ulcer to the sacrum that is a stage II pressure ulcer with fatty layer exposure. The wound edges are attached to the wound base granulation is seen throughout the wound bed with minimal slough. The periwound does show some erythema. Patient's past medical history significant for CVA, diabetes, DVT and TIA. He is a lifelong nonsmoker. Review Of Systems: Constitutional: No fever, no chills, no night sweats. No weight change. No weakness, fatigue or lethargy. No daytime sleepiness. Integumentary:reports wounds, no lesions. No rash or pruritus. No unusual bruising. No change in hair or nails. Physical exam: General Appearance: Alert, cooperative, no distress, appears stated age. Skin: See HPI all other Skin color, texture, tugor normal, no rashes or lesions. Neurologic: Alert oriented x3 Assessment: 1. Stage II pressure ulcer sacrum 2. Nonpressure ulcer to left forearm Limited to skin breakdown 3. Diabetes with skin ulcer Plan: 1. Left forearm: Apply collagen, saline moistened gauze, dry gauze, rolled gauze and secure with paper tape. Change Friday. Sacral ulceration: Apply collagen, saline moistened gauze, and border foam change Friday. 2. Turn patient every 2 hours. About a any pressure to the sacral area. Utilize a waffle or air-filled cushion when sitting or for prolonged periods in bed. 3. Patient may benefit from outpatient wound care upon discharge. We would be happy to see him in the wound care center. Thank you for the consultation any questions was contact the wound care center DNP note has been reviewed and discussed with Dr. Ramirez and the impression and plan of care has been directed as dictated. Past Medical History Past Medical History: CVA/TIA, Diabetes Mellitus, Deep Vein Thrombosis (DVT), Hypertension, Osteoarthritis (OA) Additional Past Medical History / Comment(s): wound center patient, states has DVT x3 in rt leg, past hx of diabetes and HTN, no longer requires rx since weight loss. states TIA in 2010 residual muscle weakness in rt leg, wears brace rt leg, uti . 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, pacemaker/ACID placed 2017 History of Any Multi-Drug Resistant Organisms: MRSA Year Discovered:: 02/08/19 MDRO Source:: left foot Past Surgical History: Back Surgery, Hernia Repair, Orthopedic Surgery, Pacemaker Additional Past Surgical History / Comment(s): cervical fusion, right hip replacement, cataract surgery, penile implant Past Anesthesia/Blood Transfusion Reactions: No Reported Reaction Type of Cardiac Device: Permanent Pacemaker, AICD, Unknown Device Placement Date:: May 2018 Past Psychological History: No Psychological Hx Reported Smoking Status: Never smoker Past Alcohol Use History: None Reported Past Drug Use History: None Reported - Past Family History Mother Family Medical History: Cancer Father Family Medical History: Cancer, Coronary Artery Disease (CAD) Medications and Allergies Home Medications Medication Instructions Recorded Confirmed Type Atorvastatin [Lipitor] 10 mg PO HS 10/29/18 09/03/21 History Multivitamins, Thera [Multivitamin 1 tab PO DAILY@1700 05/08/20 09/03/21 History (formulary)] Calcium Carbonate [Calcium] 600 mg PO BID@0800,1700 07/07/21 09/03/21 History Docusate [Colace] 100 mg PO DAILY PRN 07/07/21 09/03/21 History Doxazosin [Cardura] 4 mg PO HS 07/07/21 09/03/21 History Magnesium Oxide 400 mg PO DAILY 07/07/21 09/03/21 History Metoprolol Tartrate [Lopressor] 50 mg PO BID@0800,1700 07/07/21 09/03/21 History Omeprazole 20 mg PO DAILY 07/07/21 09/03/21 History Tamsulosin HCl [Flomax] 0.4 mg PO HS 07/07/21 09/03/21 History Acetaminophen Tab [Tylenol] 650 mg PO Q6HR PRN tab 07/11/21 09/03/21 Rx Apixaban [Eliquis] 5 mg PO BID@0800,1700 07/18/21 09/03/21 History INSULIN LISPRO (humaLOG) [humaLOG] See Protocol SQ ACHS 07/18/21 09/03/21 History HYDROcodone/APAP 7.5-325MG [[place] 1 tab PO Q6H PRN #10 tab 07/23/21 09/03/21 Rx 7.5-325] Gabapentin [Neurontin] 300 mg PO BID 09/03/21 09/03/21 History Allergies Allergy/AdvReac Type Severity Reaction Status Date / Time No Known Allergies Allergy Verified 09/03/21 13:52 Physical Exam Vitals: Vital Signs Temp Pulse Resp BP Pulse Ox 09/05/21 07:03 98.2 F 75 17 138/72 95 09/05/21 00:50 98.4 F 74 16 175/71 97 09/04/21 20:23 98.6 F 77 175/78 96 09/04/21 15:00 97.8 F 71 18 157/78 98 Intake and Output 09/04/21 09/05/21 09/05/21 22:59 06:59 14:59 Output Total 950 1000 850 Balance -950 -1000 -850 Output: Urine 950 1000 850 Other: Voiding Method Indwelling Catheter Indwelling Catheter # Bowel Movements 0 10 Results CBC & Chem 7: 09/03/21 13:54 09/04/21 07:53 Labs: Abnormal Lab Results - Last 24 Hours (Table) 09/04/21 09/04/21 09/04/21 Range/Units 12:31 17:20 21:04 POC Glucose (mg/dL) 112 H 133 H 175 H (75-99) mg/dL 09/05/21 Range/Units 07:51 POC Glucose (mg/dL) 144 H (75-99) mg/dL Microbiology - Last 24 Hours (Table) 09/03/21 23:09 Urine Culture - Preliminary Urine,Voided Assessment and Plan (1) Stage II pressure ulcer of sacral region Current Visit: Yes Status: Acute Code(s): L89.152 - PRESSURE ULCER OF SACRAL REGION, STAGE 2 SNOMED Code(s): 046560402 (2) Non-pressure chronic ulcer of skin of other sites limited to breakdown of skin Current Visit: Yes Status: Acute Code(s): L98.491 - NON-PRS CHRONIC ULCER SKIN/ SITES LIMITED TO BRKDWN SKIN SNOMED Code(s): 09458377 (3) Diabetes with skin ulcer Current Visit: No Status: Acute Code(s): E11.622 - TYPE 2 DIABETES MELLITUS WITH OTHER SKIN ULCER; L98.499 - NON-PRESSURE CHRONIC ULCER OF SKIN OF SITES W UNSP SEVERITY SNOMED Code(s): 65657463
[2021-09-05 11:49] LABS: African American GFR (CKD) 48 (>60 ml/min/1.73 sqM); Anion Gap 9 mmol/L; Blood Urea Nitrogen 24 mg/dL (9-20); Calcium 8.5 mg/dL (8.4-10.2); Carbon Dioxide 22 mmol/L (22-30); Chloride 106 mmol/L (98-107); Glucose 134 mg/dL (74-99); Non-African American GFR(CKD) 41 (>60 ml/min/1.73 sqM); Potassium 4.2 mmol/L (3.5-5.1); Sodium 137 mmol/L (137-145)
[2021-09-05 12:16] LABS: Anisocytosis Slight; Basophils % (A) 0 %; Eosinophils # (A) 0.1 k/uL (0-0.7); Eosinophils % (A) 1 %; HGB 10.6 gm/dL (13.0-17.5); Hypochromasia Moderate; Lymphocytes % (A) 14 %; MCH 29.9 pg (25.0-35.0); MCHC 31.2 g/dL (31.0-37.0); Mean Platelet Volume 10.1; Monocytes # (A) 1.2 k/uL (0-1.0); Monocytes % (A) 15 %; Neutrophils # (A) 5.2 k/uL (1.3-7.7); Neutrophils % (A) 67 %; Platelet Count 170 k/uL (150-450); RBC 3.55 m/uL (4.30-5.90); RDW 17.1 % (11.5-15.5); WBC 7.7 k/uL (3.8-10.6)
[2021-09-05 12:46] LABS: Glucose,Whole Blood 162 mg/dL (75-99)
[2021-09-05] MEDS: SODIUM CHLORIDE 0.9% 1,000 ML IV SCH ×2 (14:37→19:54)
[2021-09-05] MEDS: MULTIVITAMINS, THERA 1 EACH TAB PO SCH (16:13)
[2021-09-05 17:26] LABS: Glucose,Whole Blood 114 mg/dL (75-99)
[2021-09-05] MEDS: ATORVASTATIN 10 MG TAB PO SCH (19:53)
[2021-09-05] MEDS: TAMSULOSIN 0.4 MG CAP.ER.24H PO SCH (19:54)
[2021-09-05] MEDS: DOXAZOSIN 4 MG TAB PO SCH (19:54)
[2021-09-05 20:21] LABS: Glucose,Whole Blood 120 mg/dL (75-99)
--- NOTE | 2021-09-06 01:15 | P.PN ---
Subjective Progress Note Date: 09/05/21 Principal diagnosis: Generalized weakness. Patient is a 76-year-old male with known history of CVA/TIA, diabetes type 2 hypertension, history of DVT, osteoarthritis, history of pulmonary pacemaker placement and stage II sacral pressure ulcer was admitted to the hospital with complaints of generalized weakness. Patient is having difficulty transferring himself at home. Patient is otherwise able to walk with a walker. Patient is also having chronic nonhealing decubitus ulcer. 09/05/2021 Patient is awake alert and oriented x3. Able to get out of the bed with physical therapy. Patient was seen by research quality assurance specialist and showed no signs of infection. Urinary culture is growing Enterococcus species. Final culture report is pending. Otherwise patient is afebrile and no complaints of dysuria. No leukocytosis Laboratory data showed WBC 7.7 hemoglobin 10.6 and platelets 170 BUN 24 and creatinine 1.54 and blood sugar is 134. Current medications reviewed. Objective - Vital Signs Vital signs: Vital Signs Temp 98.2 F 09/05/21 07:03 Pulse 75 09/05/21 07:03 Resp 17 09/05/21 07:03 BP 138/72 09/05/21 07:03 Pulse Ox 95 09/05/21 07:03 Intake & Output 09/04/21 09/05/21 09/05/21 18:59 06:59 18:59 Intake Total 222 Output Total 950 1000 850 Balance -728 1000 -850 Weight 78.018 kg Intake: Oral 222 Output: Urine 950 1000 850 Other: Voiding Method Indwelling Catheter Indwelling Catheter Indwelling Catheter # Bowel Movements 10 - Exam PHYSICAL EXAMINATION: Patient is lying in the bed comfortably, no acute distress, awake alert and oriented.. HEENT: Normocephalic. Neck is supple. Pupils reactive. Nostrils clear. Oral cavity is moist. Neck reveals no JVD, carotid bruits, or thyromegaly. CHEST EXAMINATION: Trachea is central. Symmetrical expansion. Lung baxter clear to auscultation and percussion. CARDIAC: Normal S1, S2 with no gallops. No murmurs ABDOMEN: Soft. Bowel sounds normal. No organomegaly. No abdominal bruits. Extremities: reveal no edema. No clubbing or cyanosis Neurologically awake, alert, oriented x3 with well-coordinated movements. Able to move her extremities while in bed. Mild right-sided residual weakness. Skin: No rash or skin lesions. Sacral stage II decub ulcers. Psychiatric: Cooperative. Nonsuicidal Musculoskeletal: No joint swelling or deformity. Normal range of motion. - Labs CBC & Chem 7: 09/05/21 11:21 09/05/21 11:21 Labs: Abnormal Lab Results - Last 24 Hours (Table) 09/04/21 09/04/21 09/05/21 Range/Units 17:20 21:04 07:51 RBC (4.30-5.90) m/uL Hgb (13.0-17.5) gm/dL Hct (39.0-53.0) % RDW (11.5-15.5) % Monocytes # (0-1.0) k/uL BUN (9-20) mg/dL Creatinine (0.66-1.25) mg/dL Glucose (74-99) mg/dL POC Glucose (mg/dL) 133 H 175 H 144 H (75-99) mg/dL 09/05/21 09/05/21 09/05/21 Range/Units 11:21 11:21 12:45 RBC 3.55 L (4.30-5.90) m/uL Hgb 10.6 L (13.0-17.5) gm/dL Hct 34.0 L (39.0-53.0) % RDW 17.1 H (11.5-15.5) % Monocytes # 1.2 H (0-1.0) k/uL BUN 24 H (9-20) mg/dL Creatinine 1.58 H (0.66-1.25) mg/dL Glucose 134 H (74-99) mg/dL POC Glucose (mg/dL) 162 H (75-99) mg/dL Microbiology - Last 24 Hours (Table) 09/03/21 23:09 Urine Culture - Preliminary Urine,Voided Group D Enterococcus Assessment and Plan Assessment: Generalized weakness due to dehydration volume depletion Acute kidney injury likely prerenal Stage II sacral decub ulcers Group D Enterococcus in the urine cultures. Possible colonization. Follow-up final culture report. History of DVT currently on Eliquis Hypertension Diabetes type 2 [id number] Osteoarthritis History of CVA/TIA History of ICD placement DVT prophylaxis patient is already on full anticoagulation Plan: Patient will be continued on IV hydration PT OT is following. Follow-up final culture report. Continue with home medications and anticipate discharge in next 24 hours. Monitor renal function tomorrow. Time with Patient: Greater than 30
[2021-09-06] MEDS: HYDROcodone/APAP 7.5-325MG 1 EACH TAB PO PRN ×2 (05:17→11:34)
[2021-09-06 07:48] LABS: Glucose,Whole Blood 101 mg/dL (75-99)
[2021-09-06] MEDS: INSULIN ASPART (NovoLOG) 100 UNIT/ML VIAL SQ SCH ×2 (08:15→13:02)
[2021-09-06] MEDS: PANTOPRAZOLE 40 MG TABLET PO SCH (08:20)
[2021-09-06] MEDS: METOPROLOL TARTRATE 50 MG TAB PO SCH (08:20)
[2021-09-06] MEDS: GABAPENTIN 100 MG CAP PO SCH (08:20)
[2021-09-06] MEDS: CALCIUM CARBONATE 500 MG CHEWABLE PO SCH (08:20)
[2021-09-06] MEDS: CHOLESTYRAMINE (WITH SUGAR) 4 GM PACKET PO SCH (08:20)
[2021-09-06] MEDS: MAGNESIUM OXIDE 400 MG TAB PO SCH (08:20)
[2021-09-06] MEDS: APIXABAN 5 MG TAB PO SCH (08:20)
[2021-09-06] MEDS: SODIUM CHLORIDE 0.9% 1,000 ML IV SCH (08:21)
[2021-09-06 08:27] VITALS: RESP 17
[2021-09-06 11:26] LABS: Basophils # (A) 0.01 X 10*3/uL (0.00-0.10); Basophils % (A) 0.2 %; Eosinophils # (A) 0.13 X 10*3/uL (0.04-0.35); HGB 10.1 g/dL (13.0-17.0); Lymphocytes % (A) 18.5 %; MCH 28.4 pg (27.0-32.0); MCHC 29.7 g/dL (32.0-37.0); MCV 95.5 fL (80.0-97.0); Mean Platelet Volume 11.9 fL (9.5-12.2); Monocytes # (A) 1.02 X 10*3/uL (0.20-1.00); Monocytes % (A) 15.8 %; Neutrophils # (A) 4.02 X 10*3/uL (1.80-7.70); Neutrophils % (A) 62.1 %; Platelet Count 152 X 10*3/uL (140-440); RBC 3.56 X 10*6/uL (4.40-5.60); RDW 17.4 % (11.5-14.5); WBC 6.47 X 10*3/uL (4.50-10.00)
[2021-09-06] MEDS ORDERED: LOPERAMIDE 2 MG CAP PO PRN (12:20)
[2021-09-06] MEDS ORDERED: LOPERAMIDE 2 MG CAP PO STA (12:20)
[2021-09-06 12:30] LABS: African American GFR (CKD) 48.2 (60.0-200.0); Anion Gap 11.6 mmol/L (10.00-18.00); BUN/Creat Ratio 15.41 Ratio (12.00-20.00); Blood Urea Nitrogen 24.2 mg/dL (9.0-27.0); Calcium 8.6 mg/dL (8.7-10.3); Carbon Dioxide 17.5 mmol/L (20.0-27.5); Non-African American GFR(CKD) 41.6 (60.0-200.0); Potassium 4.1 mmol/L (3.5-5.5)
[2021-09-06 12:55] LABS: Glucose,Whole Blood 207 mg/dL (75-99)
[2021-09-06 15:02] VITALS: BP 155/67; PULSE 75; TEMP 98.2
--- NOTE | 2021-09-07 09:20 | P.DS ---
Providers Date of admission: 09/03/21 17:33 Expected date of discharge: 09/06/21 Attending physician: Gisselle Campos Primary care physician: Karina Camarillo Hospital Course: Final diagnosis Generalized weakness due to dehydration volume depletion Acute kidney injury likely prerenal, improving Stage II sacral decub ulcers Acute urinary tract infection, present on admission with culture showing enterococcus faecalis History of DVT currently on Eliquis Hypertension Diabetes type 2 [id number] Osteoarthritis History of CVA/TIA History of ICD placement DVT prophylaxis patient is already on full anticoagulation Full code Discharge disposition Patient is being discharged in a stable condition with guarded prognosis to home. Patient will follow-up with Dr. Camarillo in the outpatient setting upon discharge. Patient is to follow-up with wound care center as well in one week. Patient will also continue with home care which is being arranged. Patient will continue on ampicillin 500 mg 3 times daily for the next 1 week. Scripts are provided for patient to follow-up with labs closely to monitor electrolytes and kidney functions. Total time taken is greater than 35 minutes. Hospital course Generalized weakness. Patient is a 76-year-old male with known history of CVA/TIA, diabetes type 2 hypertension, history of DVT, osteoarthritis, history of pulmonary pacemaker placement and stage II sacral pressure ulcer was admitted to the hospital with complaints of generalized weakness. Patient is having difficulty transferring himself at home. Patient is otherwise able to walk with a walker. Patient is also having chronic nonhealing decubitus ulcer. 09/05/2021 Patient is awake alert and oriented x3. Able to get out of the bed with physical therapy. Patient was seen by crm specialist and showed no signs of infection. Urinary culture is growing Enterococcus species. Final culture report is pending. Otherwise patient is afebrile and no complaints of dysuria. No leukocytosis Laboratory data showed WBC 7.7 hemoglobin 10.6 and platelets 170 BUN 24 and creatinine 1.54 and blood sugar is 134. 09/06/2021 Patient is seen and evaluated and follow-up feeling much better and requesting to go home. Patient continues with diarrhea and is maintained on Questran and will add Imodium and states is mildly improving. Patient has been off antibiotics with no white count and afebrile although urine culture shows enterococcus faecalis we'll continue with ampicillin 3 times daily for 1 week to complete the course. Patient instructed to follow-up with the wound care center and continue with local wound care and patient does have home care and nurses visit him 3 days a week. Physical therapy evaluated the patient recommending subacute rehab although patient is adamant against this and is agreeable to home care. Patient will be discharged home with a guarded prognosis. Currently no reports of chest pain, shortness of breath, or palpitations. Patient is afebrile. No reports of nausea or vomiting and patient is tolerating diet. Patient will be discharged home today. Guarded prognosis. PHYSICAL EXAMINATION: GENERAL: The patient is alert and oriented x3. Well developed, well nourished. HEENT: Pupils are round and equally reacting to light. EOMI. No scleral icterus. No conjunctival pallor. Normocephalic, atraumatic. No pharyngeal erythema. No thyromegaly. CARDIOVASCULAR: S1 and S2 present. No murmurs, rubs, or gallops. PULMONARY: diminished breath sounds bilaterally with no wheezing or rhonchi noted ABDOMEN: Soft, nontender, nondistended, normoactive bowel sounds. No palpable or ganomegaly. MUSCULOSKELETAL: No joint swelling or deformity. EXTREMITIES: No cyanosis, clubbing, or pedal edema. NEUROLOGICAL: Gross neurological examination did not reveal any focal deficits. Diffusely weak. SKIN: No rashes. Stage II sacral decubitus ulcer Please refer to medication reconciliation sheet for a list of medications. Patient Condition at Discharge: Stable Plan - Discharge Summary New Discharge Prescriptions: New Gabapentin [Neurontin] 200 mg PO BID #12 cap Cholestyramine (with Sugar) [Questran Packet] 4 gm PO TID BETWEEN MEALS #60 packet Loperamide [Imodium] 2 mg PO QID PRN #60 cap PRN Reason: Diarrhea Ampicillin Trihydrate 500 mg PO TID 7 Days #21 cap Continue Atorvastatin [Lipitor] 10 mg PO HS Multivitamins, Thera [Multivitamin (formulary)] 1 tab PO DAILY@1700 Magnesium Oxide 400 mg PO DAILY Metoprolol Tartrate [Lopressor] 50 mg PO BID@0800,1700 Doxazosin [Cardura] 4 mg PO HS Acetaminophen Tab [Tylenol] 650 mg PO Q6HR PRN tab PRN Reason: Mild Pain Or Fever > 100.5 INSULIN LISPRO (humaLOG) [humaLOG] See Protocol SQ ACHS Tamsulosin HCl [Flomax] 0.4 mg PO HS Docusate [Colace] 100 mg PO DAILY PRN PRN Reason: Constipation Calcium Carbonate [Calcium] 600 mg PO BID@0800,1700 Omeprazole 20 mg PO DAILY Apixaban [Eliquis] 5 mg PO BID@0800,1700 HYDROcodone/APAP 7.5-325MG [[place] 7.5-325] 1 tab PO Q6H PRN #10 tab PRN Reason: Pain Discontinued Gabapentin [Neurontin] 300 mg PO BID Discharge Medication List Atorvastatin [Lipitor] 10 mg PO HS 10/29/18 [History] Multivitamins, Thera [Multivitamin (formulary)] 1 tab PO DAILY@1700 05/08/20 [History] Calcium Carbonate [Calcium] 600 mg PO BID@0800,1700 07/07/21 [History] Docusate [Colace] 100 mg PO DAILY PRN 07/07/21 [History] Doxazosin [Cardura] 4 mg PO HS 07/07/21 [History] Magnesium Oxide 400 mg PO DAILY 07/07/21 [History] Metoprolol Tartrate [Lopressor] 50 mg PO BID@0800,1700 07/07/21 [History] Omeprazole 20 mg PO DAILY 07/07/21 [History] Tamsulosin HCl [Flomax] 0.4 mg PO HS 07/07/21 [History] Acetaminophen Tab [Tylenol] 650 mg PO Q6HR PRN tab 07/11/21 [Rx] Apixaban [Eliquis] 5 mg PO BID@0800,1700 07/18/21 [History] INSULIN LISPRO (humaLOG) [humaLOG] See Protocol SQ ACHS 07/18/21 [History] Ampicillin Trihydrate 500 mg PO TID 7 Days #21 cap 09/06/21 [Rx] Cholestyramine (with Sugar) [Questran Packet] 4 gm PO TID BETWEEN MEALS #60 packet 09/06/21 [Rx] Gabapentin [Neurontin] 200 mg PO BID #12 cap 09/06/21 [Rx] HYDROcodone/APAP 7.5-325MG [[place] 7.5-325] 1 tab PO Q6H PRN #10 tab 09/06/21 [Rx] Loperamide [Imodium] 2 mg PO QID PRN #60 cap 09/06/21 [Rx] Follow up Appointment(s)/Referral(s): Connor Ny [NON-STAFF] - As Needed Karina Camarillo DO [Primary Care Provider] - 3 Days Primo Ramirez DO [Doctor of Osteopathic Medicine] - 1 Week Ambulatory/Diagnostic Orders: Basic Metabolic Panel [LAB.AMB] Time Frame: 3 Days, Location: None Selected Activity/Diet/Wound Care/Special Instructions: Activity Limited until follow-up Follow-up with primary care provider on discharge Continue regular diet Continue with ensure compact twice daily with meals Continue with home care Follow-up with wound care center in 1-2 weeks Local wound care to the coccyx sacrum area by changing Friday/Friday/Friday or more often if becoming soiled and apply collagen with saline moistened gauze and border foam, left forearm apply collagen, saline moistened gauze, dry gauze, rolled gauze and secure with paper tape Discharge/Stand Alone Forms: Who Do I Call? Discharge Disposition: HOME WITH HOME HEALTH SERVICES
--- NOTE | 2021-09-09 07:06 | P.HPIM ---
History of Present Illness H&P Date: 09/04/21 70-year-old pleasant male with a chronic generalized weakness and chronic debility has 24 hours hour assistance at home lives by himself. Patient was sent in to the hospital because of his increased generalized weakness patient is unable to care for himself family members brought into the hospital. Patient is found to be dehydrated with creatinine going up to around and about 2 patient baseline creatinine around 1.5. Patient denied any other complaints. Patient denied any fever chills patient and dysuria. Patient has chronic nonhealing stage II decubitus ulcer which doesn't appear to be infected and will need local wound care. Discussed with the patient regarding options of going to subacute rehab although patient declined to go to subacute rehab patient states he uses a walker at home and patient has physical therapy at home which he can manage and wishes to go home to the previous living situation. REVIEW OF SYSTEMS: CONSTITUTIONAL: No fever, no malaise, no fatigue. HEENT: No recent visual problems or hearing problems. Denied any sore throat. CARDIOVASCULAR: No chest pain, orthopnea, PND, no palpitations, no syncope. PULMONARY: No shortness of breath, no cough, no hemoptysis. GASTROINTESTINAL: No diarrhea, no nausea, no vomiting, no abdominal pain. NEUROLOGICAL: No headaches, no weakness, no numbness. HEMATOLOGICAL: Denies any bleeding or petechiae. GENITOURINARY: Denies any burning micturition, frequency, or urgency. MUSCULOSKELETAL/RHEUMATOLOGICAL: Denies any joint pain, swelling, or any muscle pain. ENDOCRINE: Denies any polyuria or polydipsia. The rest of the 14-point review of systems is negative. PHYSICAL EXAMINATION: GENERAL: The patient is alert and oriented x3, not in any acute distress. Well developed, well nourished. HEENT: Pupils are round and equally reacting to light. EOMI. No scleral icterus. No conjunctival pallor. Normocephalic, atraumatic. No pharyngeal erythema. No thyromegaly. CARDIOVASCULAR: S1 and S2 present. No murmurs, rubs, or gallops. PULMONARY: Chest is clear to auscultation, no wheezing or crackles. ABDOMEN: Soft, nontender, nondistended, normoactive bowel sounds. No palpable organomegaly. MUSCULOSKELETAL: No joint swelling or deformity. EXTREMITIES: No cyanosis, clubbing, or pedal edema. NEUROLOGICAL: Gross neurological examination did not reveal any focal deficits. Significant generalized weakness and chronic contractures SKIN: Sacral ulcer Assessment and plan -Generalized weakness due to dehydration and intravascular volume depletion patient was receiving IV fluids at 1 30 mL per hour will be transitioned to 100 mL/h there is improvement in creatinine from about 2 to around 2. 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 states TIA in 2010 residual muscle weakness in rt leg, wears brace rt leg, uti . 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, pacemaker/ACID placed 2017 History of Any Multi-Drug Resistant Organisms: MRSA Date of last positivie culture/infection: 02/08/19 MDRO Source:: left foot Past Surgical History: Back Surgery, Hernia Repair, Orthopedic Surgery, Pacemaker Additional Past Surgical History / Comment(s): cervical fusion, right hip replacement, cataract surgery, penile implant Past Anesthesia/Blood Transfusion Reactions: No Reported Reaction Type of Cardiac Device: Permanent Pacemaker, AICD, Unknown Device Placement Date:: May 2018 Past Psychological History: No Psychological Hx Reported Smoking Status: Never smoker Past Alcohol Use History: None Reported Past Drug Use History: None Reported - Past Family History Mother Family Medical History: Cancer Father Family Medical History: Cancer, Coronary Artery Disease (CAD) Medications and Allergies Home Medications Medication Instructions Recorded Confirmed Type Atorvastatin [Lipitor] 10 mg PO HS 10/29/18 09/07/21 History Multivitamins, Thera [Multivitamin 1 tab PO DAILY@1700 05/08/20 09/07/21 History (formulary)] Calcium Carbonate [Calcium] 600 mg PO BID@0800,1700 07/07/21 09/07/21 History Docusate [Colace] 100 mg PO DAILY PRN 07/07/21 09/07/21 History Doxazosin [Cardura] 4 mg PO HS 07/07/21 09/07/21 History Magnesium Oxide 400 mg PO DAILY 07/07/21 09/07/21 History Metoprolol Tartrate [Lopressor] 50 mg PO BID@0800,1700 07/07/21 09/07/21 History Omeprazole 20 mg PO DAILY 07/07/21 09/07/21 History Tamsulosin HCl [Flomax] 0.4 mg PO HS 07/07/21 09/07/21 History Acetaminophen Tab [Tylenol] 650 mg PO Q6HR PRN tab 07/11/21 09/07/21 Rx Apixaban [Eliquis] 5 mg PO BID@0800,1700 07/18/21 09/07/21 History INSULIN LISPRO (humaLOG) [humaLOG] See Protocol SQ ACHS 07/18/21 09/07/21 History Ampicillin Trihydrate 500 mg PO TID 7 Days #21 cap 09/06/21 09/07/21 Rx Cholestyramine (with Sugar) 4 gm PO TID BETWEEN MEALS #60 09/06/21 09/07/21 Rx [Questran Packet] packet Gabapentin [Neurontin] 200 mg PO BID #12 cap 09/06/21 09/07/21 Rx HYDROcodone/APAP 7.5-325MG [[place] 1 tab PO Q6H PRN #10 tab 09/06/21 09/07/21 Rx 7.5-325] Loperamide [Imodium] 2 mg PO QID PRN #60 cap 09/06/21 09/07/21 Rx Allergies Allergy/AdvReac Type Severity Reaction Status Date / Time No Known Allergies Allergy Verified 09/07/21 14:05 Results CBC & Chem 7: 09/06/21 06:46 09/06/21 06:46 Thrombosis Risk Factor Assmnt - Choose All That Apply Each Risk Factor Represents 3 Points: Age 75 years or older Thrombosis Risk Factor Assessment Total Risk Factor Score: 3 Thrombosis Risk Factor Assessment Level: Moderate Risk
== END 2021-09-06 16:52 | disposition home health service (06) ==
LOC: EC 12:31 → 6NMEDSUR 17:33
PROVIDERS: ADMIT Hospitalist; ATTEND Hospitalist
DX: N17.9 Acute kidney failure, unspecified (principal); E86.0 Dehydration; N39.0 Urinary tract infection, site not specified; B95.2 Enterococcus as the cause of diseases classified elsewhere; L89.152 Pressure ulcer of sacral region, stage 2; E11.622 Type 2 diabetes mellitus with other skin ulcer; L98.491 Non-pressure chronic ulcer of skin of other sites limited to breakdown of skin; M62.81 Muscle weakness (generalized); I45.10 Unspecified right bundle-branch block; I10 Essential (primary) hypertension; M19.90 Unspecified osteoarthritis, unspecified site; R53.81 Other malaise; Z79.01 Long term (current) use of anticoagulants; Z79.4 Long term (current) use of insulin; Z79.899 Other long term (current) drug therapy; Z86.73 Personal history of transient ischemic attack (TIA), and cerebral infarction without residual deficits; Z86.718 Personal history of other venous thrombosis and embolism; Z86.14 Personal history of Methicillin resistant Staphylococcus aureus infection; Z95.810 Presence of automatic (implantable) cardiac defibrillator; Z96.641 Presence of right artificial hip joint; Z98.1 Arthrodesis status; Z98.890 Other specified postprocedural states; Z82.49 Family history of ischemic heart disease and other diseases of the circulatory system; Z80.9 Family history of malignant neoplasm, unspecified
CPT/HCPCS: 96361 ×4; 96360; 99285; 36415; 93005; 97116; 97530 ×2; 97162; 97535; 97166; 36410; 76937; 80053; 80048 ×3; 83605; 84484; 85025 ×3; 85610; 85730; 81001; 87324; 87086; 87077; 87186; 87635; 71046; G0378 ×4

== ENCOUNTER 2021-09-07 13:28 | Inpatient (IN) | payer MEDICARE, OTHER ==
[2021-09-07] MEDS ORDERED: SODIUM CHLORIDE 0.9% 1,000 ML IV STA (14:00)
--- NOTE | 2021-09-07 14:35 | ED ---
General Adult HPI - General Stated complaint: Failure to thrive Time Seen by Provider: 09/07/21 13:30 Source: patient, RN notes reviewed, old records reviewed - History of Present Illness Initial comments: This is a 76-year-old male who is brought into the emergency department after having been seen in the emergency department yesterday. Patient states he was here for dehydration and sent back home. Patient states he normally does not ambulate but his visiting nurse came over today and stated that he was too weak and not able to take care of himself at home so she sent back into the hospital. Patient was sitting in stool and urine. Patient complains of a little bit of sacral pain where he has a decubitus ulcer other than that he denies any pain. Patient states he denies any problems except for feeling overall fatigued and weak. Patient denies any fever chills. Patient denies any chest pain difficulty breathing. Patient is abdominal pain patient denies nausea vomiting or diarrhea. - Related Data Home Medications Medication Instructions Recorded Confirmed Atorvastatin [Lipitor] 10 mg PO HS 10/29/18 09/07/21 Multivitamins, Thera [Multivitamin 1 tab PO DAILY@1700 05/08/20 09/07/21 (formulary)] Calcium Carbonate [Calcium] 600 mg PO BID@0800,1700 07/07/21 09/07/21 Docusate [Colace] 100 mg PO DAILY PRN 07/07/21 09/07/21 Doxazosin [Cardura] 4 mg PO HS 07/07/21 09/07/21 Magnesium Oxide 400 mg PO DAILY 07/07/21 09/07/21 Metoprolol Tartrate [Lopressor] 50 mg PO BID@0800,1700 07/07/21 09/07/21 Omeprazole 20 mg PO DAILY 07/07/21 09/07/21 Tamsulosin HCl [Flomax] 0.4 mg PO HS 07/07/21 09/07/21 Apixaban [Eliquis] 5 mg PO BID@0800,1700 07/18/21 09/07/21 INSULIN LISPRO (humaLOG) [humaLOG] See Protocol SQ ACHS 07/18/21 09/07/21 Previous Rx's Medication Instructions Recorded Acetaminophen Tab [Tylenol] 650 mg PO Q6HR PRN tab 07/11/21 Ampicillin Trihydrate 500 mg PO TID 7 Days #21 cap 09/06/21 Cholestyramine (with Sugar) 4 gm PO TID BETWEEN MEALS #60 09/06/21 [Questran Packet] packet Gabapentin [Neurontin] 200 mg PO BID #12 cap 09/06/21 HYDROcodone/APAP 7.5-325MG [[place] 1 tab PO Q6H PRN #10 tab 09/06/21 7.5-325] Loperamide [Imodium] 2 mg PO QID PRN #60 cap 09/06/21 Allergies Allergy/AdvReac Type Severity Reaction Status Date / Time No Known Allergies Allergy Verified 09/07/21 14:05 Review of Systems ROS Statement: Those systems with pertinent positive or pertinent negative responses have been documented in the HPI. ROS Other: All systems not noted in ROS Statement are negative. Past Medical History Past Medical History: CVA/TIA, Diabetes Mellitus, Deep Vein Thrombosis (DVT), Hypertension, Osteoarthritis (OA) Additional Past Medical History / Comment(s): wound center patient, states has DVT x3 in rt leg, past hx of diabetes and HTN, no longer requires rx since weight loss. states TIA in 2010 residual muscle weakness in rt leg, wears brace rt leg, uti . 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, pacemaker/ACID placed 2017 History of Any Multi-Drug Resistant Organisms: MRSA Date of last positivie culture/infection: 02/08/19 MDRO Source:: left foot Past Surgical History: Back Surgery, Hernia Repair, Orthopedic Surgery, Pac emaker Additional Past Surgical History / Comment(s): cervical fusion, right hip replacement, cataract surgery, penile implant Past Anesthesia/Blood Transfusion Reactions: No Reported Reaction Type of Cardiac Device: Permanent Pacemaker, AICD, Unknown Device Placement Date:: May 2018 Past Psychological History: No Psychological Hx Reported Smoking Status: Never smoker Past Alcohol Use History: None Reported Past Drug Use History: None Reported - Past Family History Mother Family Medical History: Cancer Father Family Medical History: Cancer, Coronary Artery Disease (CAD) General Exam - General Exam Comments Initial Comments: GENERAL: Patient is well-developed and well-nourished. Patient is nontoxic and well- hydrated and is in no acute distress. Patient appears very tired and fatigued ENT: Neck is soft and supple. No significant lymphadenopathy is noted. Oropharynx is clear. Moist mucous membranes. Neck has full range of motion without eliciting any pain. EYES: The sclera were anicteric and conjunctiva were pink and moist. Extraocular movements were intact and pupils were equal round and reactive to light. Eyelids were unremarkable. PULMONARY: Unlabored respirations. Good breath sounds bilaterally. No audible rales rhonchi or wheezing was noted. CARDIOVASCULAR: There is a regular rate and rhythm without any murmurs gallops or rubs. ABDOMEN: Soft and nontender with normal bowel sounds. SKIN: Skin is clear with no lesions or rashes and otherwise unremarkable. NEUROLOGIC: Patient is alert and oriented 2. Cranial nerves II through XII are grossly intact. Motor and sensory are also intact. Normal speech, volume and content. Symmetrical smile. MUSCULOSKELETAL: Normal extremities with adequate strength and full range of motion. LYMPHATICS: No significant lymphadenopathy is noted PSYCHIATRIC: Normal psychiatric evaluation. Course Vital Signs 09/07/21 14:15 Temperature 98.9 F Pulse Rate 80 Respiratory 17 Rate Blood Pressure 124/74 O2 Sat by Pulse 98 Oximetry Medical Decision Making - Medical Decision Making EKG shows normal sinus rhythm at 76 bpm MA interval 152 QRS is under 24 QT interval 390 QTC is 438 per patient's EKG shows no ST segment elevation or depression. Urine appeared to be infected I started the patient on 2 g of Rocephin after I elise blood cultures. I spoke with the [facility] hospitalist and admitted the patient I wrote admitting orders. I continued antibiotics on the floor. Patient was given a gram of magnesium - Lab Data Result diagrams: 09/07/21 14:32 09/07/21 14:32 Lab Results 09/07/21 09/07/21 09/07/21 Range/Units 14:32 14:32 14:32 WBC 11.1 H (3.8-10.6) k/uL RBC 4.04 L (4.30-5.90) m/uL Hgb 12.3 L (13.0-17.5) gm/dL Hct 38.3 L (39.0-53.0) % MCV 94.7 (80.0-100.0) fL MCH 30.3 (25.0-35.0) pg MCHC 32.0 (31.0-37.0) g/dL RDW 16.9 H (11.5-15.5) % Plt Count 243 (150-450) k/uL MPV 9.2 Neutrophils % 77 % Lymphocytes % 11 % Monocytes % 8 % Eosinophils % 1 % Basophils % 0 % Neutrophils # 8.6 H (1.3-7.7) k/uL Lymphocytes # 1.2 (1.0-4.8) k/uL Monocytes # 0.8 (0-1.0) k/uL Eosinophils # 0.1 (0-0.7) k/uL Basophils # 0.0 (0-0.2) k/uL Hypochromasia Slight Anisocytosis Slight PT 11.9 (9.0-12.0) sec INR 1.1 (<1.2) APTT 22.6 (22.0-30.0) sec Sodium (137-145) mmol/L Potassium (3.5-5.1) mmol/L Chloride (98-107) mmol/L Carbon Dioxide (22-30) mmol/L Anion Gap mmol/L BUN (9-20) mg/dL Creatinine (0.66-1.25) mg/dL Est GFR (CKD-EPI)AfAm (>60 ml/min/1.73 sqM) Est GFR (CKD-EPI)NonAf (>60 ml/min/1.73 sqM) Glucose (74-99) mg/dL Plasma Lactic Acid Jason (0.7-2.0) mmol/L Calcium (8.4-10.2) mg/dL Magnesium (1.6-2.3) mg/dL Total Bilirubin (0.2-1.3) mg/dL AST (17-59) U/L ALT (4-49) U/L Alkaline Phosphatase (38-126) U/L Troponin I (0.000-0.034) ng/mL Total Protein (6.3-8.2) g/dL Albumin (3.5-5.0) g/dL Urine Color Light Yellow Urine Appearance Cloudy (Clear) Urine pH 5.5 (5.0-8.0) Ur Specific [place] 1.009 (1.001-1.035) Urine Protein 1+ H (Negative) Urine Glucose (UA) Negative (Negative) Urine Ketones Negative (Negative) Urine Blood Trace H (Negative) Urine Nitrite Negative (Negative) Urine Bilirubin Negative (Negative) Urine Urobilinogen <2.0 (<2.0) mg/dL Ur Leukocyte Esterase Large H (Negative) Urine RBC 5 (0-5) /hpf Urine WBC 134 H (0-5) /hpf Urine WBC Clumps Moderate H (None) /hpf Urine Bacteria Rare H (None) /hpf Hyaline Casts 1 (0-2) /lpf Urine Mucus Rare H (None) /hpf 09/07/21 09/07/21 09/07/21 Range/Units 14:32 14:32 14:32 WBC (3.8-10.6) k/uL RBC (4.30-5.90) m/uL Hgb (13.0-17.5) gm/dL Hct (39.0-53.0) % MCV (80.0-100.0) fL MCH (25.0-35.0) pg MCHC (31.0-37.0) g/dL RDW (11.5-15.5) % Plt Count (150-450) k/uL MPV Neutrophils % % Lymphocytes % % Monocytes % % Eosinophils % % Basophils % % Neutrophils # (1.3-7.7) k/uL Lymphocytes # (1.0-4.8) k/uL Monocytes # (0-1.0) k/uL Eosinophils # (0-0.7) k/uL Basophils # (0-0.2) k/uL Hypochromasia Anisocytosis PT (9.0-12.0) sec INR (<1.2) APTT (22.0-30.0) sec Sodium 144 (137-145) mmol/L Potassium 4.6 (3.5-5.1) mmol/L Chloride 109 H (98-107) mmol/L Carbon Dioxide 24 (22-30) mmol/L Anion Gap 11 mmol/L BUN 27 H (9-20) mg/dL Creatinine 1.72 H (0.66-1.25) mg/dL Est GFR (CKD-EPI)AfAm 43 (>60 ml/min/1.73 sqM) Est GFR (CKD-EPI)NonAf 37 (>60 ml/min/1.73 sqM) Glucose 125 H (74-99) mg/dL Plasma Lactic Acid Jason 0.9 (0.7-2.0) mmol/L Calcium 9.1 (8.4-10.2) mg/dL Magnesium 1.3 L (1.6-2.3) mg/dL Total Bilirubin 0.5 (0.2-1.3) mg/dL AST 18 (17-59) U/L ALT 9 (4-49) U/L Alkaline Phosphatase 77 (38-126) U/L Troponin I <0.012 (0.000-0.034) ng/mL Total Protein 8.3 H (6.3-8.2) g/dL Albumin 3.8 (3.5-5.0) g/dL Urine Color Urine Appearance (Clear) Urine pH (5.0-8.0) Ur Specific [place] (1.001-1.035) Urine Protein (Negative) Urine Glucose (UA) (Negative) Urine Ketones (Negative) Urine Blood (Negative) Urine Nitrite (Negative) Urine Bilirubin (Negative) Urine Urobilinogen (<2.0) mg/dL Ur Leukocyte Esterase (Negative) Urine RBC (0-5) /hpf Urine WBC (0-5) /hpf Urine WBC Clumps (None) /hpf Urine Bacteria (None) /hpf Hyaline Casts (0-2) /lpf Urine Mucus (None) /hpf Disposition Clinical Impression: Generalized weakness, Fatigue, Urinary tract infection, Elevated troponin, Renal insufficiency, Hypomagnesemia Disposition: ADMITTED IP TO THIS [facility] Referrals: Karina Camarillo DO [Primary Care Provider] - 1-2 days Time of Disposition: 18:05
[2021-09-07 15:00] LABS: Anisocytosis Slight; Basophils % (A) 0 %; Eosinophils # (A) 0.1 k/uL (0-0.7); Eosinophils % (A) 1 %; HCT 38.3 % (39.0-53.0); HGB 12.3 gm/dL (13.0-17.5); Hypochromasia Slight; Lymphocytes # (A) 1.2 k/uL (1.0-4.8); Lymphocytes % (A) 11 %; MCH 30.3 pg (25.0-35.0); MCV 94.7 fL (80.0-100.0); Mean Platelet Volume 9.2; Monocytes # (A) 0.8 k/uL (0-1.0); Monocytes % (A) 8 %; Neutrophils # (A) 8.6 k/uL (1.3-7.7); Neutrophils % (A) 77 %; Platelet Count 243 k/uL (150-450); RBC 4.04 m/uL (4.30-5.90); RDW 16.9 % (11.5-15.5); WBC 11.1 k/uL (3.8-10.6)
[2021-09-07 15:10] LABS: Albumin 3.8 g/dL (3.5-5.0); Calcium 9.1 mg/dL (8.4-10.2); Magnesium 1.3 mg/dL (1.6-2.3); Total Bilirubin 0.5 mg/dL (0.2-1.3); Total Protein 8.3 g/dL (6.3-8.2)
[2021-09-07 15:14] LABS: INR 1.1 (<1.2); Prothrombin Time 11.9 sec (9.0-12.0)
[2021-09-07 15:15] LABS: Partial Thromboplastin Time 22.6 sec (22.0-30.0); Potassium 4.6 mmol/L (3.5-5.1)
--- NOTE | 2021-09-07 15:51 | XR ---
EXAMINATION TYPE: XR chest 2V DATE OF EXAM: 09/07/2021 COMPARISON: 09/03/2021 HISTORY: Shortness of breath TECHNIQUE: Frontal and lateral views of the chest are obtained. FINDINGS: Scattered senescent parenchymal changes noted. Hyperinflation compatible with COPD. No evidence for infiltrate. No evidence for atelectasis. Heart size is stable. Mediastinal structures are stable and grossly unremarkable. No evidence for hilar prominence. Degenerative changes dorsal spine. IMPRESSION: 1. No evidence for acute pulmonary disease.
[2021-09-07 17:23] LABS: Appearance,Urine Cloudy (Clear); Bacteria,Urine Rare /hpf; Bilirubin,Urine Negative (Negative); Blood,Urine Trace (Negative); Color,Urine Light Yellow; Glucose,Urine (UA) Negative (Negative); Hyaline Casts,Urine 1 /lpf (0-2); Ketones,Urine Negative (Negative); Leukocyte Esterase,Urine Large (Negative); Mucus,Urine Rare /hpf; Nitrite,Urine Negative (Negative); PH, Urine 5.5 (5.0-8.0); Protein,Urine 1+ (Negative); RBC,Urine 5 /hpf (0-5); Specific Gravity,Urine 1.009 (1.001-1.035); Urobilinogen,Urine <2.0 mg/dL (<2.0); WBC,Urine 134 /hpf (0-5)
[2021-09-07] MEDS ORDERED: MAGNESIUM SULFATE-D5W PMX 1 GM in DEXTROSE/WATER 1 100ML.BAG IVPB ONE (18:17)
[2021-09-07] MEDS: SODIUM CHLORIDE 0.9% 1,000 ML IV ONE (19:51)
[2021-09-08] MEDS ORDERED: ACETAMINOPHEN TAB 325 MG TAB PO PRN (08:35)
[2021-09-08] MEDS ORDERED: DOCUSATE 100 MG CAP PO PRN (08:35)
[2021-09-08] MEDS ORDERED: LOPERAMIDE 2 MG CAP PO PRN (08:35)
[2021-09-08] MEDS: PANTOPRAZOLE 40 MG TABLET PO SCH (10:01)
[2021-09-08] MEDS: MAGNESIUM OXIDE 400 MG TAB PO SCH (10:01)
[2021-09-08] MEDS: GABAPENTIN 100 MG CAP PO SCH ×2 (10:01→21:12)
[2021-09-08] MEDS: CHOLESTYRAMINE (WITH SUGAR) 4 GM PACKET PO SCH ×3 (10:01→17:37)
[2021-09-08] MEDS: HYDROcodone/APAP 7.5-325MG 1 EACH TAB PO PRN ×2 (10:01→18:13)
[2021-09-08] MEDS: SODIUM CHLORIDE 0.9% 1,000 ML IV ONE (10:02)
[2021-09-08 11:14] LABS: Anisocytosis Slight; Basophils % (A) 0 %; Eosinophils # (A) 0.1 k/uL (0-0.7); Eosinophils % (A) 2 %; HCT 33.7 % (39.0-53.0); HGB 10.6 gm/dL (13.0-17.5); Hypochromasia Moderate; Lymphocytes # (A) 0.8 k/uL (1.0-4.8); Lymphocytes % (A) 11 %; MCH 29.9 pg (25.0-35.0); MCHC 31.3 g/dL (31.0-37.0); MCV 95.5 fL (80.0-100.0); Mean Platelet Volume 9.6; Monocytes # (A) 0.9 k/uL (0-1.0); Monocytes % (A) 12 %; Neutrophils # (A) 5.2 k/uL (1.3-7.7); Neutrophils % (A) 72 %; Platelet Count 207 k/uL (150-450); RBC 3.53 m/uL (4.30-5.90); RDW 16.9 % (11.5-15.5); WBC 7.2 k/uL (3.8-10.6)
[2021-09-08 11:49] LABS: African American GFR (CKD) 51 (>60 ml/min/1.73 sqM); Anion Gap 10 mmol/L; Blood Urea Nitrogen 24 mg/dL (9-20); Carbon Dioxide 20 mmol/L (22-30); Chloride 107 mmol/L (98-107); Glucose 173 mg/dL (74-99); Magnesium 1.3 mg/dL (1.6-2.3); Non-African American GFR(CKD) 44 (>60 ml/min/1.73 sqM); Potassium 4.7 mmol/L (3.5-5.1); Sodium 137 mmol/L (137-145)
[2021-09-08 11:49] LABS: Glucose,Whole Blood 178 mg/dL (75-99)
--- NOTE | 2021-09-08 12:40 | P.HPIM ---
History of Present Illness This is a pleasant 76 years old male with past medical history of CVA/TIA with right lower extremity hemiparesis, he wears a brace on the right leg , Diabetes Mellitus on no treatment since he lost weight , right leg Deep Vein Thrombosis 3 on Eliquis, Hypertension, Osteoarthritis , stage III decubitus ulcer on the sacrum. Status post pacemaker and AICD, status post back surgery and cervical spine fusion and penile implant Patient was discharged from the hospital 2 days ago for generalized weakness, acute kidney injury and sacral pressure ulcers and UTI Patient today while he was in the emergency room, he was fully awake and oriented, he told me he woke up in urine yesterday, his friend came in and he thought he was out of it, while patient thinks he was only sleepy and he was just waking up, however his friend was worried and he called the ambulance for him. This morning patient says that he is back to his basic mental state, he is alert awake and oriented to time, place and person. And he has an side to his illness. He denies any specific complaints, no chest pain or dyspnea. No coughing. No change in urine or bowel habits. No fever. He denies smoking, alcohol or illicit drugs Vitals are stable and patient is afebrile on admission. Labs showing mild leukocytosis of 11.1, hemoglobin 12.3. Platelets normal. INR is 1.1 Creatinine is elevated to 1.7, however her baseline is 1.5-1.9 Liver enzymes are not elevated. Troponin negative Urinalysis is suspicious for infection Coronavirus nondetected EKG showing normal sinus rhythm at [address]-T changes Chest x-ray: Negative process On admission patient was started on Rocephin and normal saline MAPS was checked and patient is an [place] 7.5 and gabapentin Recent urine culture from 09/03/2021 growing Enterococcus faecalis. Repeat urine culture is pending Review of Systems CONSTITUTIONAL: No fever, no malaise, no fatigue. HEENT: No recent visual problems or hearing problems. Denied any sore throat. CARDIOVASCULAR: No orthopnea, PND, no palpitations, no syncope. PULMONARY: No shortness of breath, no cough, no hemoptysis. GASTROINTESTINAL: No diarrhea, no nausea, no vomiting, no abdominal pain. N ormoactive bowel sounds. NEUROLOGICAL: No headaches, no weakness, no numbness. HEMATOLOGICAL: Denies any bleeding or petechiae. GENITOURINARY: Denies any burning micturition, frequency, or urgency. MUSCULOSKELETAL/RHEUMATOLOGICAL: Denies any joint pain, swelling, or any muscle pain. ENDOCRINE: Denies any polyuria or polydipsia. Past Medical History Past Medical History: CVA/TIA, Diabetes Mellitus, Deep Vein Thrombosis (DVT), Hypertension, Osteoarthritis (OA) Additional Past Medical History / Comment(s): wound center patient, states has DVT x3 in rt leg, past hx of diabetes and HTN, no longer requires rx since weight loss. states TIA in 2010 residual muscle weakness in rt leg, wears brace rt leg, uti . 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, pacemaker/ACID placed 2017 History of Any Multi-Drug Resistant Organisms: MRSA Date of last positivie culture/infection: 02/08/19 MDRO Source:: left foot Past Surgical History: Back Surgery, Hernia Repair, Orthopedic Surgery, Pacemaker Additional Past Surgical History / Comment(s): cervical fusion, right hip replacement, cataract surgery, penile implant Past Anesthesia/Blood Transfusion Reactions: No Reported Reaction Type of Cardiac Device: Permanent Pacemaker, AICD, Unknown Device Placement Date:: May 2018 Past Psychological History: No Psychological Hx Reported Smoking Status: Never smoker Past Alcohol Use History: None Reported Past Drug Use History: None Reported - Past Family History Mother Family Medical History: Cancer Father Family Medical History: Cancer, Coronary Artery Disease (CAD) Medications and Allergies Home Medications Medication Instructions Recorded Confirmed Type Atorvastatin [Lipitor] 10 mg PO HS 10/29/18 09/07/21 History Multivitamins, Thera [Multivitamin 1 tab PO DAILY@1700 05/08/20 09/07/21 History (formulary)] Calcium Carbonate [Calcium] 600 mg PO BID@0800,1700 07/07/21 09/07/21 History Docusate [Colace] 100 mg PO DAILY PRN 07/07/21 09/07/21 History Doxazosin [Cardura] 4 mg PO HS 07/07/21 09/07/21 History Magnesium Oxide 400 mg PO DAILY 07/07/21 09/07/21 History Metoprolol Tartrate [Lopressor] 50 mg PO BID@0800,1700 07/07/21 09/07/21 History Omeprazole 20 mg PO DAILY 07/07/21 09/07/21 History Tamsulosin HCl [Flomax] 0.4 mg PO HS 07/07/21 09/07/21 History Acetaminophen Tab [Tylenol] 650 mg PO Q6HR PRN tab 07/11/21 09/07/21 Rx Apixaban [Eliquis] 5 mg PO BID@0800,1700 07/18/21 09/07/21 History INSULIN LISPRO (humaLOG) [humaLOG] See Protocol SQ ACHS 07/18/21 09/07/21 Histo ry Ampicillin Trihydrate 500 mg PO TID 7 Days #21 cap 09/06/21 09/07/21 Rx Cholestyramine (with Sugar) 4 gm PO TID BETWEEN MEALS #60 09/06/21 09/07/21 Rx [Questran Packet] packet Gabapentin [Neurontin] 200 mg PO BID #12 cap 09/06/21 09/07/21 Rx HYDROcodone/APAP 7.5-325MG [[place] 1 tab PO Q6H PRN #10 tab 09/06/21 09/07/21 Rx 7.5-325] Loperamide [Imodium] 2 mg PO QID PRN #60 cap 09/06/21 09/07/21 Rx Allergies Allergy/AdvReac Type Severity Reaction Status Date / Time No Known Allergies Allergy Verified 09/07/21 14:05 Physical Exam Vitals: Vital Signs Temp Pulse Resp BP Pulse Ox 09/08/21 06:00 83 16 137/67 95 09/08/21 02:35 88 18 141/89 95 09/07/21 22:25 78 17 150/72 94 L 09/07/21 14:15 98.9 F 80 17 124/74 98 GENERAL: The patient is alert and oriented x3, not in any acute distress. Well developed, well nourished. HEENT: Pupils are round and equally reacting to light. EOMI. No scleral icterus. No conjunctival pallor. Normocephalic, atraumatic. No pharyngeal erythema. No thyromegaly. CARDIOVASCULAR: S1 and S2 present. No murmurs, rubs, or gallops. PULMONARY: Chest is clear to auscultation, no wheezing or crackles. ABDOMEN: Soft, nontender, nondistended, normoactive bowel sounds. No palpable organomegaly. MUSCULOSKELETAL: No joint swelling or deformity. EXTREMITIES: No cyanosis, clubbing, or pedal edema. NEUROLOGICAL: Gross neurological examination did not reveal any focal deficits. SKIN: No rashes. No petechiae Results CBC & Chem 7: 09/08/21 10:36 12 10:36 Labs: Abnormal Lab Results - Last 24 Hours (Table) 09/07/21 09/07/21 09/07/21 Range/Units 14:32 14:32 14:32 WBC 11.1 H (3.8-10.6) k/uL RBC 4.04 L (4.30-5.90) m/uL Hgb 12.3 L (13.0-17.5) gm/dL Hct 38.3 L (39.0-53.0) % RDW 16.9 H (11.5-15.5) % Neutrophils # 8.6 H (1.3-7.7) k/uL Chloride 109 H (98-107) mmol/L BUN 27 H (9-20) mg/dL Creatinine 1.72 H (0.66-1.25) mg/dL Glucose 125 H (74-99) mg/dL Magnesium 1.3 L (1.6-2.3) mg/dL Total Protein 8.3 H (6.3-8.2) g/dL Urine Protein 1+ H (Negative) Urine Blood Trace H (Negative) Ur Leukocyte Esterase Large H (Negative) Urine WBC 134 H (0-5) /hpf Urine WBC Clumps Moderate H (None) /hpf Urine Bacteria Rare H (None) /hpf Urine Mucus Rare H (None) /hpf Microbiology - Last 24 Hours (Table) 09/07/21 14:32 Urine Culture - Preliminary Urine,Catheterized Assessment and Plan Assessment: Possible Acute urinary tract infection History of CVA with right leg hemiparesis Hypertension chronic kidney disease, stage III most likely diabetic nephropathy Diabetes mellitus on diet control only History of right leg DVT 3 on Eliquis Status post AICD and pacemaker History of osteoarthritis History of stage III decubitus ulcer on the sacrum History of back surgery and cervical spine fusion History of penile implant Plan: This is a pleasant 76 years old male who presents with UTI Continue with ceftriaxone and follow-up urine culture Continue gentle hydration Consult infectious disease team Check hemoglobin A1c since he has UTI and not on diabetes treatment other than diet Labs and medication were reviewed.. Continue same treatment. Continue with symptomatic treatment. Resume home medication. Monitor lytes and vitals. DVT and GI prophylaxis. Further recommendations depends on the clinical course of the patient DVT prophylaxis: Glucose GI Prophylaxis: Pepcid PT/OT: Pending Prognosis is guarded
[2021-09-08] MEDS: INSULIN ASPART (NovoLOG) 100 UNIT/ML VIAL SQ SCH ×3 (14:10→21:29)
[2021-09-08 17:31] LABS: Glucose,Whole Blood 114 mg/dL (75-99)
[2021-09-08] MEDS: METOPROLOL TARTRATE 50 MG TAB PO SCH (17:36)
[2021-09-08] MEDS: APIXABAN 5 MG TAB PO SCH (17:36)
[2021-09-08] MEDS: CALCIUM CARBONATE 500 MG CHEWABLE PO SCH (17:36)
[2021-09-08] MEDS: SODIUM CHLORIDE 0.45% 1,000 ML IV SCH (21:10)
[2021-09-08] MEDS: TAMSULOSIN 0.4 MG CAP.ER.24H PO SCH (21:12)
[2021-09-08] MEDS: ATORVASTATIN 10 MG TAB PO SCH (21:12)
[2021-09-08] MEDS: COLLAGENASE 250 UNIT/GM OINTMENT 30 GM TUBE TOPICAL SCH (21:12)
[2021-09-08 21:28] LABS: Glucose,Whole Blood 159 mg/dL (75-99)
[2021-09-08] MEDS: DOXAZOSIN 4 MG TAB PO SCH (21:28)
[2021-09-09] MEDS: SODIUM CHLORIDE 0.45% 1,000 ML IV SCH (00:07)
[2021-09-09 06:55] LABS: Glucose,Whole Blood 92 mg/dL (75-99)
[2021-09-09] MEDS: INSULIN ASPART (NovoLOG) 100 UNIT/ML VIAL SQ SCH ×4 (07:41→20:39)
[2021-09-09] MEDS: METOPROLOL TARTRATE 50 MG TAB PO SCH ×2 (08:18→17:26)
[2021-09-09] MEDS: GABAPENTIN 100 MG CAP PO SCH ×2 (08:18→20:44)
[2021-09-09] MEDS: COLLAGENASE 250 UNIT/GM OINTMENT 30 GM TUBE TOPICAL SCH (08:18)
[2021-09-09] MEDS: PANTOPRAZOLE 40 MG TABLET PO SCH (08:18)
[2021-09-09] MEDS: CALCIUM CARBONATE 500 MG CHEWABLE PO SCH ×2 (08:18→17:25)
[2021-09-09] MEDS: APIXABAN 5 MG TAB PO SCH ×2 (08:18→17:26)
[2021-09-09] MEDS: MAGNESIUM OXIDE 400 MG TAB PO SCH (08:18)
[2021-09-09] MEDS: HYDROcodone/APAP 7.5-325MG 1 EACH TAB PO PRN ×3 (08:18→23:55)
[2021-09-09] MEDS: CHOLESTYRAMINE (WITH SUGAR) 4 GM PACKET PO SCH ×3 (10:09→17:25)
--- NOTE | 2021-09-09 10:39 | P.CONS ---
History of Present Illness - Reason for Consult Consult date: 09/08/21 UTI and sacral wound Requesting physician: Ken E Richard - Chief Complaint weakness and unable to take care of himself x days - History of Present Illness History of present illness : Patient is 76-year-old male who was brought into the ER yesterday afternoon for evaluation of weakness and not able to care for himself at home per instruction of patient home care nurse apparently patient was sitting in stool and urine patient complaining of sacral pain with the patient did have a pressure ulcer and apparently has been getting worse for the last few days to weeks pain to the sacral it is more of a dull achy intensity is 5-6 out of 10 no radiation patient denies having any headache no chest pain shortness of breath or cough no nausea no vomiting no abdominal pain no diarrhea on presentation the hospital patient was afebrile patient did have a normal white count BUN/creatinine was mildly elevated patient did have positive UA patient was started on Rocephin has been admitted to the hospital infectious disease was consulted for further management of antibiotic and local wound care Review of system: CONSTITUTIONAL: Positive for weakness denies fever. EYES: No complaint. ENT: No complaint. RESPIRATORY: No complaint. CARDIOVASCULAR: No complaint. GENITOURINARY: As per history of present illness GASTROINTESTINAL: No complaint. MUSCULOSKELETAL as per history of present illness INTEGUMENTARY: No complaint. PSYCHOLOGIC: No complaint. ENDOCRINE: No complaint. NEUROLOGIC: No complaint. Past medical history : Reviewed, documented below Past surgical history : Reviewed, documented below Social history: Reviewed, documented below Medications: Reviewed, as documented below EXAMINATION: Vital sigans= Reviewed and documented below GENERAL DESCRIPTION elderly male lying in bed, no distress. No tachypnea or accessory muscle of respiration use. HEENT: Shows Pallor , no scleral icterus. Oral mucous membrane is dry. NECK: Trachea central, no thyromegaly. LUNGS: Unlabored breathing. Clear to auscultation anteriorly. No wheeze or crack le. HEART: S1, S2, regular rate and rhythm. ABDOMEN: Soft, no tenderness , guarding or rigidity EXTREMITIES: No edema of feet. SKIN: No rash, no masses palpable. Stage III sacral pressure ulcer necrosis NEUROLOGICAL: The patient is awake, alert, oriented x3, mood and affect normal. LABS AND RADIOLOGY: Reviewed results see below Assessment : Patient presented to hospital with weakness unable to get of himself in this patient did have evidence of urinary tract infection likely from the gram-negative pathogen as well as a stage III pressure ulcer but no evidence of any significant cellulitis Plan: 1-Rocephin 2 g daily to continue 2-local wound care to sacral wound with Santyl followed by moist dressing change daily keep the area of the pressure 3-gentle IV fluid We will follow on clinical condition and cultures to further adjust medication if needed Thank you for this consultation we will follow the patient along with you Past Medical History Past Medical History: CVA/TIA, Diabetes Mellitus, Deep Vein Thrombosis (DVT), Hypertension, Osteoarthritis (OA) Additional Past Medical History / Comment(s): wound center patient, states has DVT x3 in rt leg, past hx of diabetes and HTN, no longer requires rx since weight loss. states TIA in 2010 residual muscle weakness in rt leg, wears brace rt leg, uti . 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, pacemaker/ACID placed 2017 History of Any Multi-Drug Resistant Organisms: MRSA Year Discovered:: 02/08/19 MDRO Source:: left foot Past Surgical History: Back Surgery, Hernia Repair, Orthopedic Surgery, Pacemaker Additional Past Surgical History / Comment(s): cervical fusion, right hip replacement, cataract surgery, penile implant Past Anesthesia/Blood Transfusion Reactions: No Reported Reaction Type of Cardiac Device: Permanent Pacemaker, AICD, Unknown Device Placement Date:: May 2018 Past Psychological History: No Psychological Hx Reported Smoking Status: Never smoker Past Alcohol Use History: None Reported Past Drug Use History: None Reported - Past Family History Mother Family Medical History: Cancer Father Family Medical History: Cancer, Coronary Artery Disease (CAD) Medications and Allergies Home Medications Medication Instructions Recorded Confirmed Type Atorvastatin [Lipitor] 10 mg PO HS 10/29/18 09/07/21 History Multivitamins, Thera [Multivitamin 1 tab PO DAILY@1700 05/08/20 09/07/21 History (formulary)] Calcium Carbonate [Calcium] 600 mg PO BID@0800,1700 07/07/21 09/07/21 History Docusate [Colace] 100 mg PO DAILY PRN 07/07/21 09/07/21 History Doxazosin [Cardura] 4 mg PO HS 07/07/21 09/07/21 History Magnesium Oxide 400 mg PO DAILY 07/07/21 09/07/21 History Metoprolol Tartrate [Lopressor] 50 mg PO BID@0800,1700 07/07/21 09/07/21 History Omeprazole 20 mg PO DAILY 07/07/21 09/07/21 History Tamsulosin HCl [Flomax] 0.4 mg PO HS 07/07/21 09/07/21 History Acetaminophen Tab [Tylenol] 650 mg PO Q6HR PRN tab 07/11/21 09/07/21 Rx Apixaban [Eliquis] 5 mg PO BID@0800,1700 07/18/21 09/07/21 History INSULIN LISPRO (humaLOG) [humaLOG] See Protocol SQ ACHS 07/18/21 09/07/21 History Ampicillin Trihydrate 500 mg PO TID 7 Days #21 cap 09/06/21 09/07/21 Rx Cholestyramine (with Sugar) 4 gm PO TID BETWEEN MEALS #60 09/06/21 09/07/21 Rx [Questran Packet] packet Gabapentin [Neurontin] 200 mg PO BID #12 cap 09/06/21 09/07/21 Rx HYDROcodone/APAP 7.5-325MG [[place] 1 tab PO Q6H PRN #10 tab 09/06/21 09/07/21 Rx 7.5-325] Loperamide [Imodium] 2 mg PO QID PRN #60 cap 09/06/21 09/07/21 Rx Allergies Allergy/AdvReac Type Severity Reaction Status Date / Time No Known Allergies Allergy Verified 09/07/21 14:05 Physical Exam Vitals: Vital Signs Temp Pulse Pulse Resp BP BP Pulse Ox 09/08/21 13:24 98.3 F 86 17 139/75 96 09/08/21 10:00 90 130/92 09/08/21 06:00 83 16 137/67 95 09/08/21 02:35 88 18 141/89 95 09/07/21 22:25 78 17 150/72 94 L Intake and Output 09/08/21 09/08/21 09/08/21 06:59 14:59 22:59 Output Total 600 450 Balance -600 -450 Output: Urine 600 450 Straight 600 450 Other: Voiding Method Indwelling Catheter Results CBC & Chem 7: 09/08/21 10:36 09/08/21 10:36 Labs: Abnormal Lab Results - Last 24 Hours (Table) 09/07/21 09/08/21 09/08/21 Range/Units 14:32 10:36 10:36 RBC 3.53 L (4.30-5.90) m/uL Hgb 10.6 L (13.0-17.5) gm/dL Hct 33.7 L (39.0-53.0) % RDW 16.9 H (11.5-15.5) % Lymphocytes # 0.8 L (1.0-4.8) k/uL Carbon Dioxide 20 L (22-30) mmol/L BUN 24 H (9-20) mg/dL Creatinine 1.51 H (0.66-1.25) mg/dL Glucose 173 H (74-99) mg/dL POC Glucose (mg/dL) (75-99) mg/dL Calcium 8.0 L (8.4-10.2) mg/dL Magnesium 1.3 L (1.6-2.3) mg/dL Urine Protein 1+ H (Negative) Urine Blood Trace H (Negative) Ur Leukocyte Esterase Large H (Negative) Urine WBC 134 H (0-5) /hpf Urine WBC Clumps Moderate H (None) /hpf Urine Bacteria Rare H (None) /hpf Urine Mucus Rare H (None) /hpf 09/08/21 Range/Units 11:47 RBC (4.30-5.90) m/uL Hgb (13.0-17.5) gm/dL Hct (39.0-53.0) % RDW (11.5-15.5) % Lymphocytes # (1.0-4.8) k/uL Carbon Dioxide (22-30) mmol/L BUN (9-20) mg/dL Creatinine (0.66-1.25) mg/dL Glucose (74-99) mg/dL POC Glucose (mg/dL) 178 H (75-99) mg/dL Calcium (8.4-10.2) mg/dL Magnesium (1.6-2.3) mg/dL Urine Protein (Negative) Urine Blood (Negative) Ur Leukocyte Esterase (Negative) Urine WBC (0-5) /hpf Urine WBC Clumps (None) /hpf Urine Bacteria (None) /hpf Urine Mucus (None) /hpf Microbiology - Last 24 Hours (Table) 09/07/21 14:32 Urine Culture - Preliminary Urine,Catheterized
[2021-09-09 11:12] LABS: African American GFR (CKD) 50.9 (60.0-200.0); Anion Gap 15.8 mmol/L (10.00-18.00); BUN/Creat Ratio 15.27 Ratio (12.00-20.00); Blood Urea Nitrogen 22.9 mg/dL (9.0-27.0); Calcium 8.2 mg/dL (8.7-10.3); Carbon Dioxide 15.2 mmol/L (20.0-27.5); Magnesium 1.4 mg/dL (1.5-2.4)
[2021-09-09 12:29] LABS: Glucose,Whole Blood 127 mg/dL (75-99)
[2021-09-09 17:38] LABS: Glucose,Whole Blood 195 mg/dL (75-99)
[2021-09-09 19:47] LABS: Glucose,Whole Blood 102 mg/dL (75-99)
[2021-09-09] MEDS: ATORVASTATIN 10 MG TAB PO SCH (20:44)
[2021-09-09] MEDS: DOXAZOSIN 4 MG TAB PO SCH (20:44)
[2021-09-09] MEDS: TAMSULOSIN 0.4 MG CAP.ER.24H PO SCH (20:44)
[2021-09-09] MEDS ORDERED: MAGNESIUM SULFATE-D5W PMX 1 GM in DEXTROSE/WATER 1 100ML.BAG IVPB ONE (21:30)
--- NOTE | 2021-09-09 21:32 | P.PN ---
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 Status post pacemaker and AICD, status post back surgery and cervical spine fusion and penile implant Patient was discharged from the hospital 2 days ago for generalized weakness, acute kidney injury and sacral pressure ulcers and UTI Patient today while he was in the emergency room, he was fully awake and oriented, he told me he woke up in urine yesterday, his friend came in and he thought he was out of it, while patient thinks he was only sleepy and he was just waking up, however his friend was worried and he called the ambulance for him. This morning patient says that he is back to his basic mental state, he is alert awake and oriented to time, place and person. And he has an side to his illness. He denies any specific complaints, no chest pain or dyspnea. No coughing. No change in urine or bowel habits. No fever. He denies smoking, alcohol or illicit drugs Vitals are stable and patient is afebrile on admission. Labs showing mild leukocytosis of 11.1, hemoglobin 12.3. Platelets normal. INR is 1.1 Creatinine is elevated to 1.7, however her baseline is 1.5-1.9 Liver enzymes are not elevated. Troponin negative Urinalysis is suspicious for infection Coronavirus nondetected EKG showing normal sinus rhythm at [address]-T changes Chest x-ray: Negative process On admission patient was started on Rocephin and normal saline MAPS was checked and patient is an [place] 7.5 and gabapentin Recent urine culture from 09/03/2021 growing Enterococcus faecalis. Repeat urine culture is pending 09/09/2021 Patient admitted with acute urinary tract infection after he was recently discharged from the hospital for the same. Urine culture currently is growing group D enterococcus and presumptive staph, but it is not known if it is MRSA or not they'll find the results of the culture which is pending. Currently is covered with Rocephin 2 g daily. Also with gentle hydration. Vital signs stable and patient is afebrile, Norvasc added for high blood pressure 177/78. Patient other than that is awake and alert and he feels pleasant. Low magnesium replaced. Check labs in the morning Objective - Vital Signs Vital signs: Vital Signs Temp 98.3 F 09/09/21 05:00 Pulse 77 09/09/21 08:16 Resp 20 09/09/21 05:00 BP 162/75 09/09/21 08:16 Pulse Ox 94 L 09/09/21 08:16 Intake & Output 09/08/21 09/09/21 09/09/21 18:59 06:59 18:59 Intake Total 400 Output Total 1350 3800 Balance -1350 -3400 Intake: Oral 400 Output: Urine 1350 3800 Straight 1050 1900 Other: Voiding Method Indwelling Catheter Indwelling Catheter - Exam GENERAL: The patient is alert and oriented x3, not in any acute distress. Well developed, well nourished. HEENT: Pupils are round and equally reacting to light. EOMI. No scleral icterus. No conjunctival pallor. Normocephalic, atraumatic. No pharyngeal erythema. No thyromegaly. CARDIOVASCULAR: S1 and S2 present. No murmurs, rubs, or gallops. PULMONARY: Chest is clear to auscultation, no wheezing or crackles. ABDOMEN: Soft, nontender, nondistended, normoactive bowel sounds. No palpable organomegaly. MUSCULOSKELETAL: No joint swelling or deformity. EXTREMITIES: No cyanosis, clubbing, or pedal edema. NEUROLOGICAL: Gross neurological examination did not reveal any focal deficits. SKIN: No rashes. No petechiae - Labs CBC & Chem 7: 09/08/21 10:36 09/09/21 03:32 Labs: Abnormal Lab Results - Last 24 Hours (Table) 09/08/21 09/08/21 09/08/21 Range/Units 10:36 10:36 11:47 RBC 3.53 L (4.30-5.90) m/uL Hgb 10.6 L (13.0-17.5) gm/dL Hct 33.7 L (39.0-53.0) % RDW 16.9 H (11.5-15.5) % Lymphocytes # 0.8 L (1.0-4.8) k/uL Carbon Dioxide 20 L (22-30) mmol/L BUN 24 H (9-20) mg/dL Creatinine 1.51 H (0.66-1.25) mg/dL Glucose 173 H (74-99) mg/dL POC Glucose (mg/dL) 178 H (75-99) mg/dL Calcium 8.0 L (8.4-10.2) mg/dL Magnesium 1.3 L (1.6-2.3) mg/dL 09/08/21 09/08/21 Range/Units 17:30 21:18 RBC (4.30-5.90) m/uL Hgb (13.0-17.5) gm/dL Hct (39.0-53.0) % RDW (11.5-15.5) % Lymphocytes # (1.0-4.8) k/uL Carbon Dioxide (22-30) mmol/L BUN (9-20) mg/dL Creatinine (0.66-1.25) mg/dL Glucose (74-99) mg/dL POC Glucose (mg/dL) 114 H 159 H (75-99) mg/dL Calcium (8.4-10.2) mg/dL Magnesium (1.6-2.3) mg/dL Microbiology - Last 24 Hours (Table) 09/07/21 18:55 Blood Culture - Preliminary Blood No Growth after 24 hours 09/07/21 18:55 Blood Culture - Preliminary Blood No Growth after 24 hours Assessment and Plan Assessment: Recurrent Acute urinary tract infection secondary to group D enterococcus and staph History of CVA with right leg hemiparesis Hypertension chronic kidney disease, stage III most likely diabetic nephropathy Diabetes mellitus on diet control only History of right leg DVT 3 on Eliquis Status post AICD and pacemaker History of osteoarthritis History of stage III decubitus ulcer on the sacrum History of back surgery and cervical spine fusion History of penile implant Plan: This is a pleasant 76 years old male who presents with UTI Continue with ceftriaxone and follow-up urine culture Continue gentle hydration Consult infectious disease team Check hemoglobin A1c since he has UTI and not on diabetes treatment other than diet Labs and medication were reviewed.. Continue same treatment. Continue with symptomatic treatment. Resume home medication. Monitor lytes and vitals. DVT and GI prophylaxis. Further recommendations depends on the clinical course of the patient DVT prophylaxis: Glucose GI Prophylaxis: Pepcid PT/OT: Pending Prognosis is guarded
[2021-09-09] MEDS: amLODIPine 5 MG TAB PO SCH (21:40)
--- NOTE | 2021-09-09 23:46 | PN ---
PROGRESS NOTE DATE OF SERVICE: 09/09/2021 REASON FOR FOLLOWUP: UTI and sacral pressure ulcer. INTERVAL HISTORY: The patient is afebrile. The patient is breathing comfortably. Denies having any chest pain, shortness of breath or cough. No abdominal pain or diarrhea. PHYSICAL EXAMINATION: Blood pressure 177/72 with a pulse of 69, temperature 98.1. He is 98% on room air. General description is an elderly male lying in bed in no distress. Respiratory system: Unlabored breathing, clear to auscultation anteriorly. Heart S1, S2. Regular rate and rhythm. Abdomen soft, no tenderness. LABS: Creatinine is 1.5. Urine showing Staph aureus and Enterococcus. DIAGNOSTIC IMPRESSION AND PLAN: 1. Patient admitted to hospital with weakness, multifactorial, with a possible component of a urinary tract infection, urine showing Enterococcus and MSSA. Antibiotic will be adjusted to Unasyn to cover for both pathogens. 2. Sacral pressure ulcer, stage III, no cellulitis. Local wound care with Santyl followed by moist dressing. Keep the area off pressure. MMODL / IJN: [id number] /
[2021-09-09] MEDS: AMPICILLIN-SULBACTAM 3 GM in SODIUM CHLORIDE 0.9% 100 ML IVPB SCH (23:55)
[2021-09-10] MEDS: SODIUM CHLORIDE 0.45% 1,000 ML IV SCH (02:43)
[2021-09-10] MEDS: AMPICILLIN-SULBACTAM 3 GM in SODIUM CHLORIDE 0.9% 100 ML IVPB SCH ×3 (05:02→17:51)
[2021-09-10] MEDS: HYDROcodone/APAP 7.5-325MG 1 EACH TAB PO PRN ×4 (05:02→23:52)
[2021-09-10 06:47] LABS: Anisocytosis Slight; Basophils % (A) 0 %; Eosinophils # (A) 0.2 k/uL (0-0.7); Eosinophils % (A) 2 %; HCT 34.1 % (39.0-53.0); HGB 10.7 gm/dL (13.0-17.5); Hypochromasia Marked; Lymphocytes # (A) 0.8 k/uL (1.0-4.8); Lymphocytes % (A) 12 %; MCH 30.2 pg (25.0-35.0); MCHC 31.5 g/dL (31.0-37.0); MCV 95.9 fL (80.0-100.0); Mean Platelet Volume 9.6; Monocytes # (A) 0.9 k/uL (0-1.0); Monocytes % (A) 13 %; Neutrophils # (A) 4.7 k/uL (1.3-7.7); Neutrophils % (A) 69 %; Platelet Count 216 k/uL (150-450); RBC 3.56 m/uL (4.30-5.90); RDW 16.4 % (11.5-15.5); WBC 6.8 k/uL (3.8-10.6)
[2021-09-10 07:22] LABS: Glucose,Whole Blood 101 mg/dL (75-99)
[2021-09-10] MEDS: INSULIN ASPART (NovoLOG) 100 UNIT/ML VIAL SQ SCH ×4 (07:45→21:16)
[2021-09-10] MEDS: MAGNESIUM OXIDE 400 MG TAB PO SCH (08:20)
[2021-09-10] MEDS: PANTOPRAZOLE 40 MG TABLET PO SCH (08:20)
[2021-09-10] MEDS: CALCIUM CARBONATE 500 MG CHEWABLE PO SCH ×2 (08:20→17:13)
[2021-09-10] MEDS: APIXABAN 5 MG TAB PO SCH ×2 (08:20→17:13)
[2021-09-10] MEDS: METOPROLOL TARTRATE 50 MG TAB PO SCH ×2 (08:20→17:13)
[2021-09-10] MEDS: GABAPENTIN 100 MG CAP PO SCH ×2 (08:20→21:12)
[2021-09-10] MEDS: COLLAGENASE 250 UNIT/GM OINTMENT 30 GM TUBE TOPICAL SCH (08:21)
[2021-09-10 09:10] LABS: African American GFR (CKD) 55.4 (60.0-200.0); Anion Gap 10.9 mmol/L (10.00-18.00); BUN/Creat Ratio 15.29 Ratio (12.00-20.00); Blood Urea Nitrogen 21.4 mg/dL (9.0-27.0); Calcium 8.2 mg/dL (8.7-10.3); Carbon Dioxide 21.1 mmol/L (20.0-27.5); Magnesium 1.5 mg/dL (1.5-2.4); Non-African American GFR(CKD) 47.8 (60.0-200.0); Potassium 4.8 mmol/L (3.5-5.5)
[2021-09-10] MEDS: CHOLESTYRAMINE (WITH SUGAR) 4 GM PACKET PO SCH ×3 (10:11→17:07)
[2021-09-10] MEDS: amLODIPine 5 MG TAB PO SCH (10:11)
[2021-09-10 11:17] LABS: Glucose,Whole Blood 177 mg/dL (75-99)
[2021-09-10 14:09] VITALS: BMI 17.6
[2021-09-10] MEDS ORDERED: VANCOMYCIN IV PER PHARMACY 1 EACH MISC MISCELLANE SCH (17:00)
[2021-09-10 17:10] LABS: Glucose,Whole Blood 137 mg/dL (75-99)
[2021-09-10] MEDS: VANCOMYCIN 1,000 MG in SODIUM CHLORIDE 0.9% 250 ML IVPB SCH (18:37)
[2021-09-10 20:47] LABS: Glucose,Whole Blood 143 mg/dL (75-99)
[2021-09-10] MEDS: ATORVASTATIN 10 MG TAB PO SCH (21:12)
[2021-09-10] MEDS: TAMSULOSIN 0.4 MG CAP.ER.24H PO SCH (21:12)
[2021-09-10] MEDS: DOXAZOSIN 4 MG TAB PO SCH (21:12)
[2021-09-10] MEDS ORDERED: MAGNESIUM SULFATE-D5W PMX 1 GM in DEXTROSE/WATER 1 100ML.BAG IVPB ONE (22:05)
--- NOTE | 2021-09-10 22:13 | P.PN ---
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 Status post pacemaker and AICD, status post back surgery and cervical spine fusion and penile implant Patient was discharged from the hospital 2 days ago for generalized weakness, acute kidney injury and sacral pressure ulcers and UTI Patient today while he was in the emergency room, he was fully awake and oriented, he told me he woke up in urine yesterday, his friend came in and he thought he was out of it, while patient thinks he was only sleepy and he was just waking up, however his friend was worried and he called the ambulance for him. This morning patient says that he is back to his basic mental state, he is alert awake and oriented to time, place and person. And he has an side to his illness. He denies any specific complaints, no chest pain or dyspnea. No coughing. No change in urine or bowel habits. No fever. He denies smoking, alcohol or illicit drugs Vitals are stable and patient is afebrile on admission. Labs showing mild leukocytosis of 11.1, hemoglobin 12.3. Platelets normal. INR is 1.1 Creatinine is elevated to 1.7, however her baseline is 1.5-1.9 Liver enzymes are not elevated. Troponin negative Urinalysis is suspicious for infection Coronavirus nondetected EKG showing normal sinus rhythm at [address]-T changes Chest x-ray: Negative process On admission patient was started on Rocephin and normal saline MAPS was checked and patient is an [place] 7.5 and gabapentin Recent urine culture from 09/03/2021 growing Enterococcus faecalis. Repeat urine culture is pending 09/09/2021 Patient admitted with acute urinary tract infection after he was recently discharged from the hospital for the same. Urine culture currently is growing group D enterococcus and presumptive staph, but it is not known if it is MRSA or not they'll find the results of the culture which is pending. Currently is covered with Rocephin 2 g daily. Also with gentle hydration. Vital signs stable and patient is afebrile, Norvasc added for high blood pressure 177/78. Patient other than that is awake and alert and he feels pleasant. Low magnesium replaced. Check labs in the morning 09/10/2021 Patient clinically improving, his awake, no specific symptoms. Still generally weak and physical therapy recommended subacute rehab for which patient looks agreeable. His urine culture is growing MRSA and enterococcus faecalis both sensitive to vancomycin, Rocephin discontinued and patient was started on IV vancomycin today. We will check renal ultrasound. Continue with gentle hydration at 50 ml per hour. Monitor creatinine tomorrow as well as magnesium Objective - Vital Signs Vital signs: Vital Signs Temp 97.6 F 09/10/21 05:00 Pulse 69 09/10/21 08:04 Resp 16 09/10/21 05:00 BP 119/58 09/10/21 10:10 Pulse Ox 97 09/10/21 08:04 Intake & Output 09/09/21 09/10/21 09/10/21 18:59 06:59 18:59 Intake Total 350 Output Total 1100 1400 Balance -1100 -1050 Intake: Oral 350 Output: Urine 1100 1400 Other: Voiding Method Indwelling Catheter Indwelling Catheter Indwelling Catheter # Voids 2 - Exam GENERAL: The patient is alert and oriented x3, not in any acute distress. Well developed, well nourished. HEENT: Pupils are round and equally reacting to light. EOMI. No scleral icterus. No conjunctival pallor. Normocephalic, atraumatic. No pharyngeal erythema. No thyromegaly. CARDIOVASCULAR: S1 and S2 present. No murmurs, rubs, or gallops. PULMONARY: Chest is clear to auscultation, no wheezing or crackles. ABDOMEN: Soft, nontender, nondistended, normoactive bowel sounds. No palpable organomegaly. MUSCULOSKELETAL: No joint swelling or deformity. EXTREMITIES: No cyanosis, clubbing, or pedal edema. NEUROLOGICAL: Gross neurological examination did not reveal any focal deficits. SKIN: No rashes. No petechiae - Labs CBC & Chem 7: 09/10/21 06:13 09/10/21 06:13 Labs: Abnormal Lab Results - Last 24 Hours (Table) 09/09/21 09/09/21 09/09/21 Range/Units 12:27 17:37 19:45 RBC (4.30-5.90) m/uL Hgb (13.0-17.5) gm/dL Hct (39.0-53.0) % RDW (11.5-15.5) % Lymphocytes # (1.0-4.8) k/uL Est GFR (CKD-EPI)AfAm (60.0-200.0) Est GFR (CKD-EPI)NonAf (60.0-200.0) Glucose (70-110) mg/dL POC Glucose (mg/dL) 127 H 195 H 102 H (75-99) mg/dL Calcium (8.7-10.3) mg/dL 09/10/21 09/10/21 09/10/21 Range/Units 06:13 06:13 07:20 RBC 3.56 L (4.30-5.90) m/uL Hgb 10.7 L (13.0-17.5) gm/dL Hct 34.1 L (39.0-53.0) % RDW 16.4 H (11.5-15.5) % Lymphocytes # 0.8 L (1.0-4.8) k/uL Est GFR (CKD-EPI)AfAm 55.4 L (60.0-200.0) Est GFR (CKD-EPI)NonAf 47.8 L (60.0-200.0) Glucose 111 H (70-110) mg/dL POC Glucose (mg/dL) 101 H (75-99) mg/dL Calcium 8.2 L (8.7-10.3) mg/dL 09/10/21 Range/Units 11:15 RBC (4.30-5.90) m/uL Hgb (13.0-17.5) gm/dL Hct (39.0-53.0) % RDW (11.5-15.5) % Lymphocytes # (1.0-4.8) k/uL Est GFR (CKD-EPI)AfAm (60.0-200.0) Est GFR (CKD-EPI)NonAf (60.0-200.0) Glucose (70-110) mg/dL POC Glucose (mg/dL) 177 H (75-99) mg/dL Calcium (8.7-10.3) mg/dL Microbiology - Last 24 Hours (Table) 09/07/21 18:55 Blood Culture - Preliminary Blood No Growth after 48 hours 09/07/21 18:55 Blood Culture - Preliminary Blood No Growth after 48 hours 09/07/21 14:32 Urine Culture - Preliminary Urine,Catheterized Presumptive Staph aureus Group D Enterococcus Assessment and Plan Assessment: Recurrent Acute urinary tract infection secondary to enterococcus faecalis and MRSA History of CVA with right leg hemiparesis Hypertension chronic kidney disease, stage III most likely diabetic nephropathy Diabetes mellitus on diet control only History of right leg DVT 3 on Eliquis Status post AICD and pacemaker History of osteoarthritis History of stage III decubitus ulcer on the sacrum History of back surgery and cervical spine fusion History of penile implant Plan: This is a pleasant 76 years old male who presents with UTI Continue with IV vancomycin Check renal ultrasound Continue gentle hydration infectious disease team Labs and medication were reviewed.. Continue same treatment. Continue with symptomatic treatment. Resume home medication. Monitor lytes and vitals. DVT and GI prophylaxis. Further recommendations depends on the clinical course of the patient DVT prophylaxis: Eliquis GI Prophylaxis: Pepcid PT/OT: SAVANNAH
--- NOTE | 2021-09-10 22:23 | PN ---
PROGRESS NOTE DATE OF SERVICE: 09/10/2021 REASON FOR FOLLOWUP: 1. Urinary tract infection. 2. Sacral pressure ulcer. INTERVAL HISTORY: The patient is afebrile, breathing comfortably. No chest pain, shortness of breath or cough. No abdominal pain or any worsening pain to the sacral wound area. PHYSICAL EXAMINATION: Blood pressure 127/69, pulse of 77, temperature 98. He is 96% on room air. General description is an elderly male lying in bed in no distress. Respiratory system: Unlabored breathing, clear to auscultation anteriorly. Heart S1, S2. Regular rate and rhythm. Abdomen soft, no tenderness. Extremities no edema of the feet. LABS: Urine culture with thousand colonies of MRSA, Enterococcus faecalis. DIAGNOSTIC IMPRESSION AND PLAN: 1. Patient admitted to hospital with weakness concerning for a urinary tract infection with a positive UA; however, culture has been low colony counts. Antibiotic has been adjusted to the vancomycin; to continue. Will repeat his UA and culture. 2. Patient with a sacral pressure ulcer; no cellulitis. Continue local wound care with Santyl followed by moist dressing and keep the area off pressure. MMODL / IJN: [id number] /
[2021-09-11 00:16] LABS: Appearance,Urine Cloudy (Clear); Bacteria,Urine Few /hpf; Bilirubin,Urine Negative (Negative); Blood,Urine Moderate (Negative); Budding Yeast,Urine Many /hpf; Color,Urine Light Yellow; Glucose,Urine (UA) Negative (Negative); Hyphae Yeast, Urine Few /hpf; Ketones,Urine Negative (Negative); Leukocyte Esterase,Urine Large (Negative); Mucus,Urine Occasional /hpf; Nitrite,Urine Negative (Negative); PH, Urine 5.5 (5.0-8.0); Protein,Urine Trace (Negative); RBC,Urine 90 /hpf (0-5); Specific Gravity,Urine 1.012 (1.001-1.035); Urobilinogen,Urine <2.0 mg/dL (<2.0); WBC,Urine >182 /hpf (0-5)
[2021-09-11] MEDS: SODIUM CHLORIDE 0.45% 1,000 ML IV SCH ×2 (03:41→18:03)
[2021-09-11 05:05] LABS: Anisocytosis Slight; Basophils % (A) 0 %; Eosinophils # (A) 0.2 k/uL (0-0.7); Eosinophils % (A) 3 %; HCT 33.5 % (39.0-53.0); HGB 10.4 gm/dL (13.0-17.5); Hypochromasia Moderate; Lymphocytes # (A) 0.9 k/uL (1.0-4.8); Lymphocytes % (A) 16 %; MCH 29.4 pg (25.0-35.0); MCV 94.7 fL (80.0-100.0); Mean Platelet Volume 9.3; Monocytes # (A) 0.9 k/uL (0-1.0); Monocytes % (A) 15 %; Neutrophils # (A) 3.8 k/uL (1.3-7.7); Neutrophils % (A) 63 %; Platelet Count 215 k/uL (150-450); RBC 3.54 m/uL (4.30-5.90); RDW 16.7 % (11.5-15.5); WBC 6.1 k/uL (3.8-10.6)
[2021-09-11 07:10] LABS: Glucose,Whole Blood 113 mg/dL (75-99)
[2021-09-11] MEDS: CALCIUM CARBONATE 500 MG CHEWABLE PO SCH ×2 (08:22→18:04)
[2021-09-11] MEDS: MAGNESIUM OXIDE 400 MG TAB PO SCH (08:23)
[2021-09-11] MEDS: PANTOPRAZOLE 40 MG TABLET PO SCH (08:23)
[2021-09-11] MEDS: METOPROLOL TARTRATE 50 MG TAB PO SCH ×2 (08:23→18:04)
[2021-09-11] MEDS: HYDROcodone/APAP 7.5-325MG 1 EACH TAB PO PRN ×2 (08:23→18:10)
[2021-09-11] MEDS: APIXABAN 5 MG TAB PO SCH ×2 (08:23→18:03)
[2021-09-11] MEDS: CHOLESTYRAMINE (WITH SUGAR) 4 GM PACKET PO SCH ×3 (08:26→18:01)
[2021-09-11] MEDS: GABAPENTIN 100 MG CAP PO SCH ×2 (08:27→21:37)
[2021-09-11] MEDS: INSULIN ASPART (NovoLOG) 100 UNIT/ML VIAL SQ SCH ×4 (08:27→21:33)
--- NOTE | 2021-09-11 08:56 | US ---
EXAMINATION TYPE: US renals and bladder DATE OF EXAM: 09/11/2021 COMPARISON: 07/19/2021 CLINICAL HISTORY: mrsa URI. EXAM MEASUREMENTS: Right Kidney: 9.7 x 4.9 x 6.4cm Left Kidney: 10.1 x 5.2 x 4.3 cm Right Kidney: Parapelvic cyst measuring 2.2 x 1.4 x 1.6cm . No hydronephrosis or nephrolithiasis Left Kidney: wnl, more limited visualization due to patient position . No obvious hydronephrosis or nephrolithiasis. Bladder: possible bladder diverticulum, ?Segura position. IMPRESSION: Segura catheter within the bladder and there is debris or wall thickening involving the bladder wall c onsider cystoscopy as mass not excluded. 2. Hypodense lesions involving the right kidney most likely in the basis of parapelvic cysts.
[2021-09-11 11:42] LABS: Glucose,Whole Blood 126 mg/dL (75-99)
--- NOTE | 2021-09-11 13:31 | PN ---
PROGRESS NOTE DATE OF SERVICE: 09/11/2021 REASON FOR FOLLOWUP: UTI and sacral pressure ulcer. INTERVAL HISTORY: The patient is afebrile. The patient is currently breathing comfortably. Denies having any chest pain, shortness of breath or cough. No abdominal pain or any worsening pain to the sacral wound area. PHYSICAL EXAMINATION: Blood pressure 168/71, pulse of 67, temperature 97.5. He is 99% on room air. General description is an elderly male lying in bed in no distress. Respiratory system: Unlabored breathing. Clear to auscultation anteriorly. Heart S1, S2. Regular rate and rhythm. Abdomen soft, no tenderness. LABS: Hemoglobin is 10.1, white count 6.1. Repeat urine is still positive. DIAGNOSTIC IMPRESSION AND PLAN: 1. Patient admitted to hospital with positive with concern for a symptomatic urine culture was low colony count with MRSA enterococcus. Vancomycin was added and repeat urine is still positive. Will wait for repeat urine to finalize to determine discharge antibiotics. 2. Sacral wound. Local wound care with Santyl and moist dressing and keep the area off pressure. MMODL / IJN: [id number] /
[2021-09-11] MEDS: COLLAGENASE 250 UNIT/GM OINTMENT 30 GM TUBE TOPICAL SCH (13:42)
[2021-09-11 17:15] LABS: Glucose,Whole Blood 164 mg/dL (75-99)
[2021-09-11] MEDS: VANCOMYCIN 1,000 MG in SODIUM CHLORIDE 0.9% 250 ML IVPB SCH (18:03)
[2021-09-11] MEDS ORDERED: MAGNESIUM SULFATE-D5W PMX 1 GM in DEXTROSE/WATER 1 100ML.BAG IVPB ONE (20:08)
--- NOTE | 2021-09-11 20:13 | P.PN ---
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 Status post pacemaker and AICD, status post back surgery and cervical spine fusion and penile implant Patient was discharged from the hospital 2 days ago for generalized weakness, acute kidney injury and sacral pressure ulcers and UTI Patient today while he was in the emergency room, he was fully awake and oriented, he told me he woke up in urine yesterday, his friend came in and he thought he was out of it, while patient thinks he was only sleepy and he was just waking up, however his friend was worried and he called the ambulance for him. This morning patient says that he is back to his basic mental state, he is alert awake and oriented to time, place and person. And he has an side to his illness. He denies any specific complaints, no chest pain or dyspnea. No coughing. No change in urine or bowel habits. No fever. He denies smoking, alcohol or illicit drugs Vitals are stable and patient is afebrile on admission. Labs showing mild leukocytosis of 11.1, hemoglobin 12.3. Platelets normal. INR is 1.1 Creatinine is elevated to 1.7, however her baseline is 1.5-1.9 Liver enzymes are not elevated. Troponin negative Urinalysis is suspicious for infection Coronavirus nondetected EKG showing normal sinus rhythm at [address]-T changes Chest x-ray: Negative process On admission patient was started on Rocephin and normal saline MAPS was checked and patient is an [place] 7.5 and gabapentin Recent urine culture from 09/03/2021 growing Enterococcus faecalis. Repeat urine culture is pending 09/09/2021 Patient admitted with acute urinary tract infection after he was recently discharged from the hospital for the same. Urine culture currently is growing group D enterococcus and presumptive staph, but it is not known if it is MRSA or not they'll find the results of the culture which is pending. Currently is covered with Rocephin 2 g daily. Also with gentle hydration. Vital signs stable and patient is afebrile, Norvasc added for high blood pressure 177/78. Patient other than that is awake and alert and he feels pleasant. Low magnesium replaced. Check labs in the morning 09/10/2021 Patient clinically improving, his awake, no specific symptoms. Still generally weak and physical therapy recommended subacute rehab for which patient looks agreeable. His urine culture is growing MRSA and enterococcus faecalis both sensitive to vancomycin, Rocephin discontinued and patient was started on IV vancomycin today. We will check renal ultrasound. Continue with gentle hydration at 50 ml per hour. Monitor creatinine tomorrow as well as magnesium 09/11/2021 Patient clinically the same, fully awake and oriented, feels stronger with no specific urinary complaints but is staying in his bed most of the time. Distal been treated for UTI secondary to MRSA and enterococcus with IV v ancomycin, repeat urine culture ordered by ID team is pending We did a renal ultrasound today showing: There is no debris or wall thickening involving the bladder wall consider cystoscopy asthma has not excluded. Hypodense lesions involving the right kidney most likely in the bases of parapelvic cysts Therefore urology team were consulted. Patient may benefit from urology follow- up as an outpatient upon discharge. Also patient remains on normal son at 50 mL per hour Objective - Vital Signs Vital signs: Vital Signs Temp 97.6 F 09/11/21 04:59 Pulse 65 09/11/21 04:59 Resp 16 09/11/21 04:59 BP 149/72 09/11/21 04:59 Pulse Ox 97 09/11/21 04:59 Intake & Output 09/10/21 09/11/21 09/11/21 18:59 06:59 18:59 Intake Total 237 400 Output Total 800 800 400 Balance -563 -400 -400 Weight 58.967 kg Intake: Intake, IV Titration 400 Amount Sodium Chloride 0.45% 1, 400 000 ml @ 50 mls/hr IV . Q20H [facility] Rx#:[id number] Oral 237 Output: Urine 800 800 400 Straight 800 Other: Voiding Method Indwelling Catheter Indwelling Catheter Indwelling Catheter - Exam GENERAL: The patient is alert and oriented x3, not in any acute distress. Well developed, well nourished. HEENT: Pupils are round and equally reacting to light. EOMI. No scleral icterus. No conjunctival pallor. Normocephalic, atraumatic. No pharyngeal erythema. No thyromegaly. CARDIOVASCULAR: S1 and S2 present. No murmurs, rubs, or gallops. PULMONARY: Chest is clear to auscultation, no wheezing or crackles. ABDOMEN: Soft, nontender, nondistended, normoactive bowel sounds. No palpable organomegaly. MUSCULOSKELETAL: No joint swelling or deformity. EXTREMITIES: No cyanosis, clubbing, or pedal edema. NEUROLOGICAL: Gross neurological examination did not reveal any focal deficits. SKIN: No rashes. No petechiae - Labs CBC & Chem 7: 09/11/21 04:25 09/10/21 06:13 Labs: Abnormal Lab Results - Last 24 Hours (Table) 09/10/21 09/10/21 09/10/21 Range/Units 11:15 17:04 20:45 RBC (4.30-5.90) m/uL Hgb (13.0-17.5) gm/dL Hct (39.0-53.0) % RDW (11.5-15.5) % Lymphocytes # (1.0-4.8) k/uL POC Glucose (mg/dL) 177 H 137 H 143 H (75-99) mg/dL Urine Protein (Negative) Urine Blood (Negative) Ur Leukocyte Esterase (Negative) Urine RBC (0-5) /hpf Urine WBC (0-5) /hpf Urine WBC Clumps (None) /hpf Urine Bacteria (None) /hpf Urine Mucus (None) /hpf Urine Yeast (Budding) (None) /hpf 09/10/21 09/11/21 09/11/21 Range/Units 23:45 04:25 07:07 RBC 3.54 L (4.30-5.90) m/uL Hgb 10.4 L (13.0-17.5) gm/dL Hct 33.5 L (39.0-53.0) % RDW 16.7 H (11.5-15.5) % Lymphocytes # 0.9 L (1.0-4.8) k/uL POC Glucose (mg/dL) 113 H (75-99) mg/dL Urine Protein Trace H (Negative) Urine Blood Moderate H (Negative) Ur Leukocyte Esterase Large H (Negative) Urine RBC 90 H (0-5) /hpf Urine WBC >182 H (0-5) /hpf Urine WBC Clumps Many H (None) /hpf Urine Bacteria Few H (None) /hpf Urine Mucus Occasional H (None) /hpf Urine Yeast (Budding) Many H (None) /hpf Microbiology - Last 24 Hours (Table) 09/10/21 23:45 Urine Culture - Preliminary Urine,Voided 09/07/21 18:55 Blood Culture - Preliminary Blood No Growth after 72 hours 09/07/21 18:55 Blood Culture - Preliminary Blood No Growth after 72 hours 09/07/21 14:32 Urine Culture - Final Urine,Catheterized Methicillin resist S. aureus Enterococcus faecalis Assessment and Plan Assessment: Recurrent Acute urinary tract infection secondary to enterococcus faecalis and MRSA Thickened urinary bladder wall versus debris. Rule out urinary bladder mass. Also patient with right parapelvic renal cyst History of CVA with right leg hemiparesis Hypertension chronic kidney disease, stage III most likely diabetic nephropathy Diabetes mellitus on diet control only History of right leg DVT 3 on Eliquis Status post AICD and pacemaker History of osteoarthritis History of stage III decubitus ulcer on the sacrum History of back surgery and cervical spine fusion History of penile implant Plan: This is a pleasant 76 years old male who presents with UTI Continue with IV vancomycin Consults urology Continue gentle hydration infectious disease team Labs and medication were reviewed.. Continue same treatment. Continue with symptomatic treatment. Resume home medication. Monitor lytes and vitals. DVT and GI prophylaxis. Further recommendations depends on the clinical course of the patient DVT prophylaxis: Eliquis GI Prophylaxis: Pepcid PT/OT: SAVANNAH
[2021-09-11 20:20] LABS: Glucose,Whole Blood 120 mg/dL (75-99)
[2021-09-11] MEDS: ATORVASTATIN 10 MG TAB PO SCH (21:36)
[2021-09-11] MEDS: TAMSULOSIN 0.4 MG CAP.ER.24H PO SCH (21:36)
[2021-09-11] MEDS: DOXAZOSIN 4 MG TAB PO SCH (21:37)
[2021-09-12 07:18] LABS: Glucose,Whole Blood 93 mg/dL (75-99)
[2021-09-12] MEDS: INSULIN ASPART (NovoLOG) 100 UNIT/ML VIAL SQ SCH ×4 (07:39→21:50)
[2021-09-12] MEDS: HYDROcodone/APAP 7.5-325MG 1 EACH TAB PO PRN ×3 (09:27→23:38)
[2021-09-12] MEDS: GABAPENTIN 100 MG CAP PO SCH ×2 (09:27→21:48)
[2021-09-12] MEDS: PANTOPRAZOLE 40 MG TABLET PO SCH (09:27)
[2021-09-12] MEDS: CALCIUM CARBONATE 500 MG CHEWABLE PO SCH ×2 (09:28→17:11)
[2021-09-12] MEDS: MAGNESIUM OXIDE 400 MG TAB PO SCH (09:28)
[2021-09-12] MEDS: METOPROLOL TARTRATE 50 MG TAB PO SCH ×2 (09:28→17:11)
[2021-09-12] MEDS: CHOLESTYRAMINE (WITH SUGAR) 4 GM PACKET PO SCH ×3 (09:29→17:08)
[2021-09-12] MEDS: APIXABAN 5 MG TAB PO SCH ×2 (09:29→17:11)
[2021-09-12] MEDS: SENNOSIDES-DOCUSATE SODIUM 1 EACH TAB PO SCH ×2 (11:39→21:49)
[2021-09-12 12:08] LABS: African American GFR (CKD) 46.4 (60.0-200.0); Anion Gap 13.3 mmol/L (10.00-18.00); BUN/Creat Ratio 17.41 Ratio (12.00-20.00); Blood Urea Nitrogen 28.2 mg/dL (9.0-27.0); Calcium 8.5 mg/dL (8.7-10.3); Carbon Dioxide 20.7 mmol/L (20.0-27.5); Magnesium 1.8 mg/dL (1.5-2.4); Non-African American GFR(CKD) 40.1 (60.0-200.0); Potassium 5.2 mmol/L (3.5-5.5)
[2021-09-12 13:03] LABS: Glucose,Whole Blood 107 mg/dL (75-99)
[2021-09-12] MEDS: COLLAGENASE 250 UNIT/GM OINTMENT 30 GM TUBE TOPICAL SCH (14:29)
[2021-09-12] MEDS: SODIUM CHLORIDE 0.45% 1,000 ML IV SCH (14:29)
[2021-09-12] MEDS ORDERED: FLUCONAZOLE 100 MG TAB PO ONE (15:37)
--- NOTE | 2021-09-12 16:05 | PN ---
PROGRESS NOTE DATE OF SERVICE: 09/12/2021 REASON FOR FOLLOW UP: 1. Sacral pressure ulcer. 2. UTI. INTERVAL HISTORY: The patient is afebrile. The patient is breathing comfortably. Denies having any chest pain, shortness of breath or cough. No abdominal pain or diarrhea. PHYSICAL EXAMINATION: Blood pressure 150/69, pulse 52, temperature 97.7. He is 97% on room air. General description is an elderly male lying in bed in no distress. Respiratory system: Unlabored breathing, clear to auscultation anteriorly. Heart S1, S2. Regular rate and rhythm. Abdomen soft, no tenderness. Extremities: No edema of the feet. LABS: Hemoglobin is 10.1, white count 6.1, creatinine slightly to 1.6. Urine repeat is coming back as DIAGNOSTIC IMPRESSION AND PLAN: 1. Patient admitted to the hospital with weakness, multifactorial, with concern for urinary tract infection and urine grew MRSA, Enterococcus faecalis but it was low colony count, subsequently urine now showing [place] albicans in this patient with a jump in creatinine. To decrease risk of nephrotoxicity, we will discontinue vancomycin and short course of oral Diflucan. 2. Sacral pressure ulcer, local care with Santyl, moist dressing, keep the area off pressure. MMODL / IJN: [id number] /
[2021-09-12 17:10] LABS: Glucose,Whole Blood 163 mg/dL (75-99)
[2021-09-12] MEDS: VANCOMYCIN 1,000 MG in SODIUM CHLORIDE 0.9% 250 ML IVPB SCH (17:11)
--- NOTE | 2021-09-12 18:01 | P.GSCN ---
History of Present Illness Consult date: 09/12/21 Reason for Consult: Bladder wall thickening History of present illness: 76 yo male admitted to the hospital with UTI, He underwent a RBUS yesterday which showed focal bladder thickening, of note he had a CT in 06/2021 which was WNL. Denies any dysuria or gross hematuria. a Segura catheter was placed on presentation. Denies any surgeries. He does have hx of IPP which was placed at [place]. At baseline he denies any voiding issues. Review of Systems - Constitutional Denies fever, Denies weight loss - EENT Ears, nose, mouth and throat: Denies dysphagia - Gastrointestinal Reports as per HPI - Genitourinary Denies dysuria, Denies hematuria - Neurological Denies headaches, Denies syncope Past Medical History Past Medical History: CVA/TIA, Diabetes Mellitus, Deep Vein Thrombosis (DVT), Hypertension, Osteoarthritis (OA) Additional Past Medical History / Comment(s): wound center patient, states has DVT x3 in rt leg, past hx of diabetes and HTN, no longer requires rx since weight loss. states TIA in 2010 residual muscle weakness in rt leg, wears brace rt leg, uti . 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, pacemaker/ACID placed 2017 History of Any Multi-Drug Resistant Organisms: MRSA Year Discovered:: 09/07/21 MDRO Source:: urine Past Surgical History: Back Surgery, Hernia Repair, Orthopedic Surgery, Pacemaker Additional Past Surgical History / Comment(s): cervical fusion, right hip replacement, cataract surgery, penile implant Past Anesthesia/Blood Transfusion Reactions: No Reported Reaction Type of Cardiac Device: Permanent Pacemaker, AICD, Unknown Device Placement Date:: May 2018 Past Psychological History: No Psychological Hx Reported Smoking Status: Never smoker Past Alcohol Use History: None Reported Past Drug Use History: None Reported - Past Family History Mother Family Medical History: Cancer Father Family Medical History: Cancer, Coronary Artery Disease (CAD) Medications and Allergies Home Medications Medication Instructions Recorded Confirmed Type Atorvastatin [Lipitor] 10 mg PO HS 10/29/18 09/07/21 History Multivitamins, Thera [Multivitamin 1 tab PO DAILY@1700 05/08/20 09/07/21 History (formulary)] Calcium Carbonate [Calcium] 600 mg PO BID@0800,1700 07/07/21 09/07/21 History Docusate [Colace] 100 mg PO DAILY PRN 07/07/21 09/07/21 History Doxazosin [Cardura] 4 mg PO HS 07/07/21 09/07/21 History Magnesium Oxide 400 mg PO DAILY 07/07/21 09/07/21 History Metoprolol Tartrate [Lopressor] 50 mg PO BID@0800,1700 07/07/21 09/07/21 History Omeprazole 20 mg PO DAILY 07/07/21 09/07/21 History Tamsulosin HCl [Flomax] 0.4 mg PO HS 07/07/21 09/07/21 History Acetaminophen Tab [Tylenol] 650 mg PO Q6HR PRN tab 07/11/21 09/07/21 Rx Apixaban [Eliquis] 5 mg PO BID@0800,1700 07/18/21 09/07/21 History INSULIN LISPRO (humaLOG) [humaLOG] See Protocol SQ ACHS 07/18/21 09/07/21 History Ampicillin Trihydrate 500 mg PO TID 7 Days #21 cap 09/06/21 09/07/21 Rx Cholestyramine (with Sugar) 4 gm PO TID BETWEEN MEALS #60 09/06/21 09/07/21 Rx [Questran Packet] packet Gabapentin [Neurontin] 200 mg PO BID #12 cap 09/06/21 09/07/21 Rx HYDROcodone/APAP 7.5-325MG [[place] 1 tab PO Q6H PRN #10 tab 09/06/21 09/07/21 Rx 7.5-325] Loperamide [Imodium] 2 mg PO QID PRN #60 cap 09/06/21 09/07/21 Rx Allergies Allergy/AdvReac Type Severity Reaction Status Date / Time No Known Allergies Allergy Verified 09/07/21 14:05 Surgical - Exam Vital Signs Temp Pulse Resp BP Pulse Ox 98.9 F 80 17 124/74 98 09/07/21 14:15 09/07/21 14:15 09/07/21 14:15 09/07/21 14:15 09/07/21 14:15 - General no distress, no pain - Eyes PERRL, normal ocular movement - Respiratory normal expansion, normal respiratory effort - Psychiatric oriented to time, oriented to person, oriented to place Results - Labs 09/11/21 04:25 09/12/21 05:17 Abnormal Lab Results - Last 24 Hours (Table) 09/11/21 09/12/21 09/12/21 Range/Units 20:19 05:17 13:02 BUN 28.2 H (9.0-27.0) mg/dL Creatinine 1.6 H (0.6-1.5) mg/dL Est GFR (CKD-EPI)AfAm 46.4 L (60.0-200.0) Est GFR (CKD-EPI)NonAf 40.1 L (60.0-200.0) POC Glucose (mg/dL) 120 H 107 H (75-99) mg/dL Calcium 8.5 L (8.7-10.3) mg/dL 09/12/21 Range/Units 17:08 BUN (9.0-27.0) mg/dL Creatinine (0.6-1.5) mg/dL Est GFR (CKD-EPI)AfAm (60.0-200.0) Est GFR (CKD-EPI)NonAf (60.0-200.0) POC Glucose (mg/dL) 163 H (75-99) mg/dL Calcium (8.7-10.3) mg/dL Microbiology - Last 24 Hours (Table) 09/10/21 23:45 Urine Culture - Final Urine,Voided Olivia albicans 09/07/21 18:55 Blood Culture - Preliminary Blood No Growth after 96 hours 09/07/21 18:55 Blood Culture - Preliminary Blood No Growth after 96 hours Diabetes panel 09/12/21 Range/Units 05:17 Sodium 137 (135-145) mmol/L Potassium 5.2 (3.5-5.5) mmol/L Chloride 103 (96-109) mmol/L Carbon Dioxide 20.7 (20.0-27.5) mmol/L BUN 28.2 H (9.0-27.0) mg/dL Creatinine 1.6 H (0.6-1.5) mg/dL Glucose 95 (70-110) mg/dL Calcium 8.5 L (8.7-10.3) mg/dL Calcium panel 09/12/21 Range/Units 05:17 Calcium 8.5 L (8.7-10.3) mg/dL Pituitary panel 09/12/21 Range/Units 05:17 Sodium 137 (135-145) mmol/L Potassium 5.2 (3.5-5.5) mmol/L Chloride 103 (96-109) mmol/L Carbon Dioxide 20.7 (20.0-27.5) mmol/L BUN 28.2 H (9.0-27.0) mg/dL Creatinine 1.6 H (0.6-1.5) mg/dL Glucose 95 (70-110) mg/dL Calcium 8.5 L (8.7-10.3) mg/dL Adrenal panel 09/12/21 Range/Units 05:17 Sodium 137 (135-145) mmol/L Potassium 5.2 (3.5-5.5) mmol/L Chloride 103 (96-109) mmol/L Carbon Dioxide 20.7 (20.0-27.5) mmol/L BUN 28.2 H (9.0-27.0) mg/dL Creatinine 1.6 H (0.6-1.5) mg/dL Glucose 95 (70-110) mg/dL Calcium 8.5 L (8.7-10.3) mg/dL Assessment and Plan Assessment: 76 yo male with hx of bladder wall thickening on Bladder U/S, I reviewed U/S difficult to exclude bladder mass, given focal bladder wall thickening, discussed with patient recommend outpatient Cystoscopy -Segura can be removed when no longer needed by primary team -Well arrange for outpatient cystoscopy
[2021-09-12 20:58] LABS: Glucose,Whole Blood 167 mg/dL (75-99)
--- NOTE | 2021-09-12 21:22 | P.PN ---
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 Status post pacemaker and AICD, status post back surgery and cervical spine fusion and penile implant Patient was discharged from the hospital 2 days ago for generalized weakness, acute kidney injury and sacral pressure ulcers and UTI Patient today while he was in the emergency room, he was fully awake and oriented, he told me he woke up in urine yesterday, his friend came in and he thought he was out of it, while patient thinks he was only sleepy and he was just waking up, however his friend was worried and he called the ambulance for him. This morning patient says that he is back to his basic mental state, he is alert awake and oriented to time, place and person. And he has an side to his illness. He denies any specific complaints, no chest pain or dyspnea. No coughing. No change in urine or bowel habits. No fever. He denies smoking, alcohol or illicit drugs Vitals are stable and patient is afebrile on admission. Labs showing mild leukocytosis of 11.1, hemoglobin 12.3. Platelets normal. INR is 1.1 Creatinine is elevated to 1.7, however her baseline is 1.5-1.9 Liver enzymes are not elevated. Troponin negative Urinalysis is suspicious for infection Coronavirus nondetected EKG showing normal sinus rhythm at [address]-T changes Chest x-ray: Negative process On admission patient was started on Rocephin and normal saline MAPS was checked and patient is an [place] 7.5 and gabapentin Recent urine culture from 09/03/2021 growing Enterococcus faecalis. Repeat urine culture is pending 09/09/2021 Patient admitted with acute urinary tract infection after he was recently discharged from the hospital for the same. Urine culture currently is growing group D enterococcus and presumptive staph, but it is not known if it is MRSA or not they'll find the results of the culture which is pending. Currently is covered with Rocephin 2 g daily. Also with gentle hydration. Vital signs stable and patient is afebrile, Norvasc added for high blood pressure 177/78. Patient other than that is awake and alert and he feels pleasant. Low magnesium replaced. Check labs in the morning 09/10/2021 Patient clinically improving, his awake, no specific symptoms. Still generally weak and physical therapy recommended subacute rehab for which patient looks agreeable. His urine culture is growing MRSA and enterococcus faecalis both sensitive to vancomycin, Rocephin discontinued and patient was started on IV vancomycin today. We will check renal ultrasound. Continue with gentle hydration at 50 ml per hour. Monitor creatinine tomorrow as well as magnesium 09/11/2021 Patient clinically the same, fully awake and oriented, feels stronger with no specific urinary complaints but is staying in his bed most of the time. Distal been treated for UTI secondary to MRSA and enterococcus with IV v ancomycin, repeat urine culture ordered by ID team is pending We did a renal ultrasound today showing: There is no debris or wall thickening involving the bladder wall consider cystoscopy asthma has not excluded. Hypodense lesions involving the right kidney most likely in the bases of parapelvic cysts Therefore urology team were consulted. Patient may benefit from urology follow- up as an outpatient upon discharge. Also patient remains on normal son at 50 mL per hour 09/12/2021 Patient clinically improving and he is a stronger with no specific symptoms, is fully awake and oriented and almost back to his baseline In the morning we were waiting for final results of repeat urine culture, later on during the day his culture was finalized showing Olivia only. Therefore IV vancomycin was discontinued by ID team and fluconazole was started orally. Urologist recommended outpatient cystoscopy and discontinue Segura catheter. We will monitor bladder scan Possible discharge in 24 hours Objective - Vital Signs Vital signs: Vital Signs Temp 97.8 F 09/12/21 05:00 Pulse 68 09/12/21 05:00 Resp 16 09/12/21 05:00 BP 152/68 09/12/21 05:00 Pulse Ox 96 09/12/21 05:00 Intake & Output 09/11/21 09/12/21 09/12/21 18:59 06:59 18:59 Intake Total 700 118 Output Total 1999 2299 Balance -1999 -1599 118 Intake: Intake, IV Titration 700 Amount Magnesium Sulfate-D5w Pmx 100 1 gm In Dextrose/Water 1 100ml.bag @ 100 mls/hr IVPB ONCE ONE Rx#: [id number] Sodium Chloride 0.45% 1, 600 000 ml @ 50 mls/hr IV . Q20H ON LICENSE OF [facility] Rx#:[id number] Oral 118 Output: Urine 19990 Other: Voiding Method Indwelling Catheter Indwelling Catheter - Exam GENERAL: The patient is alert and oriented x3, not in any acute distress. Well developed, well nourished. HEENT: Pupils are round and equally reacting to light. EOMI. No scleral icterus. No conjunctival pallor. Normocephalic, atraumatic. No pharyngeal erythema. No thyromegaly. CARDIOVASCULAR: S1 and S2 present. No murmurs, rubs, or gallops. PULMONARY: Chest is clear to auscultation, no wheezing or crackles. ABDOMEN: Soft, nontender, nondistended, normoactive bowel sounds. No palpable organomegaly. MUSCULOSKELETAL: No joint swelling or deformity. EXTREMITIES: No cyanosis, clubbing, or pedal edema. NEUROLOGICAL: Gross neurological examination did not reveal any focal deficits. SKIN: No rashes. No petechiae - Labs CBC & Chem 7: 09/11/21 04:25 09/12/21 05:17 Labs: Abnormal Lab Results - Last 24 Hours (Table) 09/11/21 09/11/21 Range/Units 16:53 20:19 POC Glucose (mg/dL) 164 H 120 H (75-99) mg/dL Microbiology - Last 24 Hours (Table) 09/07/21 18:55 Blood Culture - Preliminary Blood No Growth after 96 hours 09/07/21 18:55 Blood Culture - Preliminary Blood No Growth after 96 hours 09/10/21 23:45 Urine Culture - Preliminary Urine,Voided Assessment and Plan Assessment: Recurrent Acute urinary tract infection secondary to enterococcus faecalis and MRSA , efficiently treated and repeating culture show Olivia only Thickened urinary bladder wall versus debris. Rule out urinary bladder mass. Also patient with right parapelvic renal cyst History of CVA with right leg hemiparesis Hypertension chronic kidney disease, stage III most likely diabetic nephropathy Diabetes mellitus on diet control only History of right leg DVT 3 on Eliquis Status post AICD and pacemaker History of osteoarthritis History of stage III decubitus ulcer on the sacrum History of back surgery and cervical spine fusion History of penile implant Plan: This is a pleasant 76 years old male who presents with UTI Discontinue IV vancomycin and Start oral fluconazole per ID team Consults urology: Recommended outpatient cystoscopy. Discontinue Segura catheter and monitor bladder scan Discontinue IV fluids infectious disease team Labs and medication were reviewed.. Continue same treatment. Continue with symptomatic treatment. Resume home medication. Monitor lytes and vitals. DVT and GI prophylaxis. Further recommendations depends on the clinical course of the patient DVT prophylaxis: Eliquis GI Prophylaxis: Pepcid PT/OT: SAVANNAH
[2021-09-12] MEDS: ATORVASTATIN 10 MG TAB PO SCH (21:49)
[2021-09-12] MEDS: TAMSULOSIN 0.4 MG CAP.ER.24H PO SCH (21:49)
[2021-09-12] MEDS: DOXAZOSIN 4 MG TAB PO SCH (21:49)
[2021-09-13 07:39] LABS: Glucose,Whole Blood 112 mg/dL (75-99)
[2021-09-13] MEDS: INSULIN ASPART (NovoLOG) 100 UNIT/ML VIAL SQ SCH ×2 (08:17→12:56)
[2021-09-13] MEDS: CALCIUM CARBONATE 500 MG CHEWABLE PO SCH (08:18)
[2021-09-13] MEDS: GABAPENTIN 100 MG CAP PO SCH (08:18)
[2021-09-13] MEDS: METOPROLOL TARTRATE 50 MG TAB PO SCH (08:18)
[2021-09-13] MEDS: MAGNESIUM OXIDE 400 MG TAB PO SCH (08:18)
[2021-09-13] MEDS: PANTOPRAZOLE 40 MG TABLET PO SCH (08:18)
[2021-09-13] MEDS: SENNOSIDES-DOCUSATE SODIUM 1 EACH TAB PO SCH (08:18)
[2021-09-13] MEDS: APIXABAN 5 MG TAB PO SCH (08:18)
[2021-09-13] MEDS: CHOLESTYRAMINE (WITH SUGAR) 4 GM PACKET PO SCH ×2 (08:19→15:15)
[2021-09-13] MEDS ORDERED: FLUCONAZOLE 100 MG TAB PO SCH (09:00)
[2021-09-13] MEDS: COLLAGENASE 250 UNIT/GM OINTMENT 30 GM TUBE TOPICAL SCH (10:27)
[2021-09-13] MEDS ORDERED: TAMSULOSIN 0.4 MG CAP.ER.24H PO SCH (10:45)
[2021-09-13] MEDS: HYDROcodone/APAP 7.5-325MG 1 EACH TAB PO PRN (11:01)
[2021-09-13] MEDS ORDERED: VANCOMYCIN 1,000 MG in SODIUM CHLORIDE 0.9% 250 ML IVPB SCH (12:00)
[2021-09-13 12:39] LABS: Glucose,Whole Blood 130 mg/dL (75-99)
[2021-09-13 12:58] VITALS: BP 167/79; PULSE 65; RESP 17; TEMP 97.8
--- NOTE | 2021-09-13 17:21 | PN ---
PROGRESS NOTE DATE OF SERVICE: 09/13/2021. REASON FOR FOLLOWUP: 1. UTI. 2. Sacral pressure ulcer. INTERVAL HISTORY: The patient is afebrile. The patient is breathing comfortably. No chest pain, shortness of breath or cough. ( ) pain to the sacral wound area, no worsening though. PHYSICAL EXAMINATION: Blood pressure 167/79, pulse of 65, temperature is 97.8. He is 96% on room air. General description is an elderly male lying in bed in no distress. Respiratory system: Unlabored breathing, clear to auscultation anteriorly. Heart S1, S2. Regular rate and rhythm. Abdomen soft, no tenderness. Sacral wound with no significant slough tissue. No redness. DIAGNOSTIC IMPRESSION AND PLAN: 1. Patient with urinary tract infection. Urine initially with MRSA, Enterococcus species only Olivia. Will give a short course of oral Diflucan on discharge. 2. Sacral wound. Local wound care with Santyl followed by moist dressing and keep the area off the pressure. MMODL / IJN: [id number] /
--- NOTE | 2021-09-13 22:10 | P.DS ---
Providers Date of admission: 09/07/21 18:10 Attending physician: Gisselle Campos Consults: 09/08/21 08:39 Consult Physician Urgent Consulting Provider: Pablito Lynne Consult Reason/Comments: possible uti and pressure ulcer Do you want consulting provider notified?: Yes 09/11/21 17:57 Consult Physician Urgent Consulting Provider: Allen Ruiz Consult Reason/Comments: possible UB mass Do you want consulting provider notified?: Yes Primary care physician: Karina Camarillo Hospital Course: Diagnoses: Recurrent Acute urinary tract infection secondary to enterococcus faecalis and MRSA , efficiently treated with iv vancomycin (discontinued now) and repeating culture show Olivia only (dc on diflucan for 7 d) Thickened urinary bladder wall versus debris. Rule out urinary bladder mass. Also patient with right parapelvic renal cyst. Needs cystoscopy with Dr. ortega on 09/19 History of CVA with right leg hemiparesis Hypertension chronic kidney disease, stage III most likely diabetic nephropathy Diabetes mellitus on diet control only History of right leg DVT 3 on Eliquis Status post AICD and pacemaker History of osteoarthritis History of stage III decubitus ulcer on the sacrum History of back surgery and cervical spine fusion History of penile implant Hospital course: This is a pleasant 76 years old male with past medical history of CVA/TIA with right lower extremity hemiparesis, he wears a brace on the right leg , Diabetes Mellitus on no treatment since he lost weight , right leg Deep Vein Thrombosis 3 on Eliquis, Hypertension, Osteoarthritis , stage III decubitus ulcer on the sacrum. Status post pacemaker and AICD, status post back surgery and cervical spine fusion and penile implant Patient was discharged from the hospital 2 days ago for generalized weakness, acute kidney injury and sacral pressure ulcers and UTI. Patient presents again with another attack of urinary tract infection secondary to enterococcus similar to last admission but this time also was growing MRSA, both bacteria were sensitive to vancomycin. Patient received several days of IV vancomycin and a patent blood culture showing no more gross of such bacteria therefore IV vancomycin was stopped however the same repeat blood culture was growing Olivia therefore fluconazole was started orally per infectious disease recommendation for following the patient closely On the day of discharge he denies diarrhea and he has regular formed stool, confirmed with the bedside nurse today. No need for C. diff test Renal ultrasound was suspicious for a bladder mass, finance lead recommended outpatient cystoscopy and discontinue Segura catheter. Postvoid residual urine was checked today and it is 400-500 again, so Segura catheter was replaced back again. He is in the Flomax edges at home, we will increase it to twice a day upon discharge Patient remained clinically stable, his weakness improved and he is back to his normal self. On the day of discharge he denies chest pain, dyspnea, no change in urine or bowel habits. No fever. Patient was cleared For discharge by urologist and infectious disease team. Patient will be discharged on Diflucan Problems and management plan were discussed with the patient and he verbalized understanding and acceptance Patient was found stable and can be discharged to subacute rehab on guarded prognosis however he needs follow-up as an outpatient. Patient was instructed to follow up with PCP within one week and patient agrees Patient was instructed to follow up with urologist Dr. ortega in one week for his bladder mass, patient agrees. Patient was told about his possible urinary bladder mass, also he was told the possibility of being cancer versus others, he verbalized understanding and acceptance to do close follow-up with urologist I told him about his appointment on 09/19/21 and he told me he will follow up Physical exam Gen: patient is a AAOx3, no distress CVS: S1-S2, RRR, no murmur Lungs: B/L CTA, no wheezing -Abdomen: soft, no distention, no tenderness, positive bowel sounds. Segura catheter is in Extremity: no leg edema or induration Time spent more than 35 minutes Patient Condition at Discharge: Stable Plan - Discharge Summary New Discharge Prescriptions: New Tamsulosin [Flomax] 0.4 mg PO BID #0 capsule Collagenase [Santyl Ointment] 1 applic TOPICAL DAILY gm Fluconazole [Diflucan] 100 mg PO DAILY #7 tablet Continue Atorvastatin [Lipitor] 10 mg PO HS Multivitamins, Thera [Multivitamin (formulary)] 1 tab PO DAILY@1700 Magnesium Oxide 400 mg PO DAILY Metoprolol Tartrate [Lopressor] 50 mg PO BID@0800,1700 Doxazosin [Cardura] 4 mg PO HS Acetaminophen Tab [Tylenol] 650 mg PO Q6HR PRN tab PRN Reason: Mild Pain Or Fever > 100.5 INSULIN LISPRO (humaLOG) [humaLOG] See Protocol SQ ACHS Cholestyramine (with Sugar) [Quest[place] Packet] 4 gm PO TID BETWEEN MEALS #60 packet Gabapentin [Neurontin] 200 mg PO BID #12 cap Docusate [Colace] 100 mg PO DAILY PRN PRN Reason: Constipation Calcium Carbonate [Calcium] 600 mg PO BID@0800,1700 Omeprazole 20 mg PO DAILY Apixaban [Eliquis] 5 mg PO BID@0800,1700 Loperamide [Imodium] 2 mg PO QID PRN #60 cap PRN Reason: Diarrhea HYDROcodone/APAP 7.5-325MG [[place] 7.5-325] 1 tab PO Q6H PRN #10 tab PRN Reason: Pain Discontinued Tamsulosin HCl [Flomax] 0.4 mg PO HS Ampicillin Trihydrate 500 mg PO TID 7 Days #21 cap Discharge Medication List Atorvastatin [Lipitor] 10 mg PO HS 10/29/18 [History] Multivitamins, Thera [Multivitamin (formulary)] 1 tab PO DAILY@1700 05/08/20 [History] Calcium Carbonate [Calcium] 600 mg PO BID@0800,1700 07/07/21 [History] Docusate [Colace] 100 mg PO DAILY PRN 07/07/21 [History] Doxazosin [Cardura] 4 mg PO HS 07/07/21 [History] Magnesium Oxide 400 mg PO DAILY 07/07/21 [History] Metoprolol Tartrate [Lopressor] 50 mg PO BID@0800,1700 07/07/21 [History] Omeprazole 20 mg PO DAILY 07/07/21 [History] Acetaminophen Tab [Tylenol] 650 mg PO Q6HR PRN tab 07/11/21 [Rx] Apixaban [Eliquis] 5 mg PO BID@0800,1700 07/18/21 [History] INSULIN LISPRO (humaLOG) [humaLOG] See Protocol SQ ACHS 07/18/21 [History] Cholestyramine (with Sugar) [Quest[place] Packet] 4 gm PO TID BETWEEN MEALS #60 packet 09/06/21 [Rx] Loperamide [Imodium] 2 mg PO QID PRN #60 cap 09/06/21 [Rx] Collagenase [Santyl Ointment] 1 applic TOPICAL DAILY gm 09/13/21 [Rx] Fluconazole [Diflucan] 100 mg PO DAILY #7 tablet 09/13/21 [Rx] Gabapentin [Neurontin] 200 mg PO BID #12 cap 09/13/21 [Rx] HYDROcodone/APAP 7.5-325MG [[place] 7.5-325] 1 tab PO Q6H PRN #10 tab 09/13/21 [Rx] Tamsulosin [Flomax] 0.4 mg PO BID #0 capsule 09/13/21 [Rx] Follow up Appointment(s)/Referral(s): Bulmaro Ortega MD [STAFF PHYSICIAN] - 09/19/21 11:40 am (For outpatient Cystoscopy) Karina Camarillo DO [Primary Care Provider] - 1-2 days Patient Instructions/Handouts: MRSA (Methicillin-Resistant Staphylococcus Aureus) (DC), Urinary Tract Infection in Men (DC), Weakness (DC), Fatigue (DC), Cystoscopy (GEN) Activity/Diet/Wound Care/Special Instructions: regular diet Activity as tolerated Discharge Disposition: TRANSFER TO SNF/ECF
== END 2021-09-13 16:35 | DRG 689 ==
LOC: EC 13:28 → 5NMEDONC 18:10
PROVIDERS: ADMIT Hospitalist; ATTEND Hospitalist
DX: N39.0 Urinary tract infection, site not specified (principal); L89.153 Pressure ulcer of sacral region, stage 3; I69.351 Hemiplegia and hemiparesis following cerebral infarction affecting right dominant side; B37.49 Other urogenital candidiasis; R62.7 Adult failure to thrive; B95.2 Enterococcus as the cause of diseases classified elsewhere; B95.62 Methicillin resistant Staphylococcus aureus infection as the cause of diseases classified elsewhere; N18.30 Chronic kidney disease, stage 3 unspecified; E11.22 Type 2 diabetes mellitus with diabetic chronic kidney disease; E83.42 Hypomagnesemia; I12.9 Hypertensive chronic kidney disease with stage 1 through stage 4 chronic kidney disease, or unspecified chronic kidney disease; N28.1 Cyst of kidney, acquired; N32.9 Bladder disorder, unspecified; Z79.01 Long term (current) use of anticoagulants; Z79.899 Other long term (current) drug therapy; Z82.49 Family history of ischemic heart disease and other diseases of the circulatory system; Z86.718 Personal history of other venous thrombosis and embolism; Z95.810 Presence of automatic (implantable) cardiac defibrillator; Z96.0 Presence of urogenital implants; Z20.822 Contact with and (suspected) exposure to COVID-19; Z96.641 Presence of right artificial hip joint; Z98.1 Arthrodesis status; M19.90 Unspecified osteoarthritis, unspecified site; Z87.440 Personal history of urinary (tract) infections; Z86.14 Personal history of Methicillin resistant Staphylococcus aureus infection
CPT/HCPCS: 36415; 71046; 76770; 80048; 80053; 81001; 82565; 83036; 83605; 83735; 84484; 85025; 85610; 85730; 87040; 87077; 87086; 87186; 87635; 93005; 96361; 96365; 96367; 99285

== ENCOUNTER → 2022-07-05 | Outpatient (CLI) | payer OTHER ==
--- NOTE | 2022-07-05 14:40 | CT ---
EXAMINATION TYPE: CT lumbar spine wo con DATE OF EXAM: 07/05/2022 2:28 PM COMPARISON: None HISTORY: Spondylosis w/o myelopathy or radiculopathy Technique: CT DLP: 903 [id number] Automated exposure control for dose reduction was used. Unenhanced CT of the lumbar spine was performed. Bone and soft tissue window settings are submitted as well as coronal and sagittal reconstructions. Findings: There are postsurgical changes of laminectomy at the at the L2-3, L4-5 and L5-S1 levels. The lumbar vertebral segments are normal in height and alignment and there is no fracture or subluxat ion. There is moderate disc space narrowing and spondylosis at the L4-5 level indicating moderate deg enerative disease. There is mild vacuum phenomenon at the T12/L1 disc L2/L3 disc indicating mild dege neration. There are no lumbar disc herniations. There is no spinal stenosis. There is mild to moderate facet arthropathy throughout the lumbar region. Paraspinal soft tissues are unremarkable. IMPRESSION: 1. Postsurgical changes of laminectomy as described above. 2. No recurrent spinal stenosis. 3. No lumbar disc herniation 4. There is moderate degenerative disease at the L4-5 level and mild degenerative disc disease at the T12/L1 level and at the L2-3 level.. 5. No lumbar spine malalignment or fracture.
== END | disposition home or self-care (01) ==
LOC: RADCTMAIN 14:02
PROVIDERS: ATTEND Physical Medicine & Rehabilitation
DX: M47.817 Spondylosis without myelopathy or radiculopathy, lumbosacral region (principal); M48.062 Spinal stenosis, lumbar region with neurogenic claudication; M51.36 Other intervertebral disc degeneration, lumbar region
CPT/HCPCS: 72131

== ENCOUNTER → 2022-07-12 | Outpatient (CLI) | payer OTHER ==
--- NOTE | 2022-07-13 11:17 | US ---
EXAMINATION TYPE: US venous doppler duplex LE RT DATE OF EXAM: 07/12/2022 5:01 PM COMPARISON: NONE CLINICAL HISTORY: [id number] EMBOLISM AND THROMBOSIS OF DEEP V. SIDE PERFORMED: Right TECHNIQUE: The lower extremity deep venous system is examined utilizing real time linear array sonog gurdeep with graded compression, doppler sonography and color-flow sonography. VESSELS IMAGED: Common Femoral Vein Deep Femoral Vein Greater Saphenous Vein * Femoral Vein Popliteal Vein Small Saphenous Vein * Proximal Calf Veins (* superficial vessels) Grayscale, color doppler, spectral doppler imaging performed of the deep veins of the lower extremiti es. Right Leg: Some chronic DVT seen in femoral vein, thin channel of flow without complete compression of vein. Color flow is present within the right common femoral, superficial femoral, popliteal veins. Some low level internal echoes are present within the popliteal and superficial femoral, common femoral veins along a laminar pattern with incomplete compressibility suggesting chronic deep venous thrombosis. IMPRESSION: Findings consistent with chronic DVT with recanalization suspected
== END | disposition home or self-care (01) ==
LOC: RADUSWWP 12:23
DX: I82.491 Acute embolism and thrombosis of other specified deep vein of right lower extremity (principal)

== ENCOUNTER → 2022-10-02 | Outpatient (CLI) | payer OTHER ==
--- NOTE | 2022-10-02 14:29 | US ---
EXAMINATION TYPE: US venous doppler duplex LE RT DATE OF EXAM: 10/02/2022 2:11 PM COMPARISON: US dated 07/12/2022 CLINICAL HISTORY: I82.491 ACUTE EMBOLISM AND THROMBOSIS OF DEEP VEIN. Patient on thinners. SIDE PERFORMED: Right TECHNIQUE: The lower extremity deep venous system is examined utilizing real time linear array sonog gurdeep with graded compression, doppler sonography and color-flow sonography. VESSELS IMAGED: Common Femoral Vein Deep Femoral Vein Greater Saphenous Vein * Femoral Vein Popliteal Vein Small Saphenous Vein * Proximal Calf Veins (* superficial vessels) Right Leg: POSITIVE for chronic appearing DVT. There is stranding noted and thick jeffery throughout e ntire right leg with partial compression. There are patent collaterals noted distal FV. No acute proc ess identified. IMPRESSION: 1. Chronic appearing right lower extremity deep venous thrombosis.
== END | disposition home or self-care (01) ==
LOC: RADUSWWP 13:45
PROVIDERS: ATTEND Internal Medicine Hematology & Oncology
DX: I82.501 Chronic embolism and thrombosis of unspecified deep veins of right lower extremity (principal)

== ENCOUNTER 2023-01-10 15:25 | Inpatient (IN) | payer MEDICARE, OTHER ==
--- NOTE | 2023-01-10 17:07 | ED ---
General Adult HPI - General Chief complaint: Extremity Problem,Nontraumatic Stated complaint: MRSA left foot Time Seen by Provider: 01/10/23 16:08 Source: patient Mode of arrival: wheelchair Limitations: no limitations - History of Present Illness Initial comments: Dictation was produced using [employer] dictation software. please excuse any grammatical, word or spelling errors. Chief Complaint: 77-year-old male with past medical history of left foot MRSA infection presents to the emergency department fifth digit ulcer History of Present Illness: Patient 77-year-old male states that he has extensive history of MRSA infections that affected his left foot. He states it is been in the hospital admitted for several days. Last couple days he noticed a ulcer over the lateral portion of his left fifth toe. He is well-known to the wound clinic. He was sent here by [facility] physician for further care. Patient has any fever or constitutional symptoms. He has history of neuropathy. He denies any pain. No sites that there is redness around the dorsal foot also. The ROS documented in this emergency department record has been reviewed and confirmed by me. Those systems with pertinent positive or negative responses have been documented in the HPI. All other systems are other negative and/or noncontributory. - Related Data Home Medications Medication Instructions Recorded Confirmed Atorvastatin [Lipitor] 10 mg PO HS 10/29/18 01/10/23 Magnesium Oxide 400 mg PO DAILY 07/07/21 01/10/23 Metoprolol Tartrate [Lopressor] 50 mg PO DAILY 07/07/21 01/10/23 Apixaban [Eliquis] 2.5 mg PO BID 11/11/22 01/10/23 Gabapentin [Neurontin] 300 mg PO BID 11/11/22 01/10/23 L.acidoph,Paracasei, B.lactis 1 cap PO DAILY 11/11/22 01/10/23 [Probiotic] Menthol-Zinc Oxide Oint 1 applic TOPICAL TID PRN 11/11/22 01/10/23 [Calmoseptine Ointment] Sennosides [Senokot] 8.6 mg PO HS PRN 11/11/22 01/10/23 Calcium Carbonate [Calcium] 600 mg PO BID 01/10/23 01/10/23 Ketoconazole 2% Shampoo [Nizoral] 1 applic TOPICAL DIRECTED 01/10/23 01/10/23 Multivit-Mins/Iron/Folic/Lycop 1 tab PO DAILY 01/10/23 01/10/23 [Centrum Men's Tablet] Neomycin/Bacitracin/Polymyxinb 1 applic TOPICAL BID 01/10/23 01/10/23 [Neosporin Ointment] methocarbamoL 1,000 mg PO TID 01/10/23 01/10/23 oxyCODONE-APAP 7.5-325MG [Percocet 1 tab PO 5XD PRN 01/10/23 01/10/23 7.5-325 mg] Previous Rx's Medication Instructions Recorded Tamsulosin [Flomax] 0.4 mg PO BID #0 capsule 09/13/21 Allergies Allergy/AdvReac Type Severity Reaction Status Date / Time ciprofloxacin [From Cipro] Allergy Unknown Verified 01/10/23 16:01 Review of Systems ROS Statement: Those systems with pertinent positive or pertinent negative responses have been documented in the HPI. ROS Other: All systems not noted in ROS Statement are negative. Past Medical History Past Medical History: CVA/TIA, Diabetes Mellitus, Deep Vein Thrombosis (DVT), Hypertension, Osteoarthritis (OA) Additional Past Medical History / Comment(s): wound center patient, states has DVT x3 in rt leg, past hx of diabetes and HTN, no longer requires rx since weight loss. states TIA in 2010 residual muscle weakness in rt leg, wears brace rt leg, uti . 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, pacemaker/ACID placed 2017 History of Any Multi-Drug Resistant Organisms: MRSA Date of last positivie culture/infection: 01/07/22 MDRO Source:: MRSA TOE Past Surgical History: Back Surgery, Hernia Repair, Orthopedic Surgery, Pacemaker Additional Past Surgical History / Comment(s): cervical fusion, right hip replac ement, cataract surgery, penile implant Past Anesthesia/Blood Transfusion Reactions: No Reported Reaction Type of Cardiac Device: Permanent Pacemaker, AICD, Unknown Device Placement Date:: May 2018 Past Psychological History: No Psychological Hx Reported Smoking Status: Never smoker Past Alcohol Use History: None Reported Past Drug Use History: None Reported - Past Family History Mother Family Medical History: Cancer Father Family Medical History: Cancer, Coronary Artery Disease (CAD) General Exam - General Exam Comments Initial Comments: PHYSICAL EXAM: General Impression: Alert and oriented x3, not in acute distress HEENT: Normocephalic atraumatic, extra-ocular movements intact, pupils equal and reactive to light bilaterally, mucous membranes moist. Cardiovascular: Heart regular rate and rhythm Chest: Able to complete full sentences, no retractions, no tachypnea Musculoskeletal: Pulses present and equal in all extremities, no peripheral edema Motor: no focal deficits noted Neurological: CN II-XII grossly intact, no focal motor or sensory deficits noted Skin: Intact with no visualized rashes Psych: Normal affect and mood Right foot: 1 cm ulcer without any drainage to the lateral portion of the left fifth toe, there is some warm erythema surrounding the dorsum of his foot Limitations: no limitations Course Vital Signs 01/10/23 15:32 Temperature 98.5 F Pulse Rate 80 Respiratory 16 Rate Blood Pressure 157/69 O2 Sat by Pulse 96 Oximetry Medical Decision Making - Medical Decision Making Was pt. sent in by a medical professional or institution (, PA, DIRECTOR OF VALUATION, urgent care, hospital, or detention...) When possible be specific @ -No Did you speak to anyone other than the patient for history (EMS, parent, family, police, friend...)? What history was obtained from this source @ -No Did you review nursing and triage notes (agree or disagree)? Why? @ -I reviewed and agree with nursing and triage notes Were old charts reviewed (outside hosp., previous admission, EMS record, old EKG, old radiological studies, urgent care reports/EKG's, detention records)? Report findings @ -No old charts were reviewed Differential Diagnosis (chest pain, altered mental status, abdominal pain women, abdominal pain men, vaginal bleeding, musculoskeletal, weakness, fever, dyspnea, syncope, headache, dizziness, GI bleed, back pain, seizure, CVA, palpatations, mental health)? @ -Gangrene, osteomyelitis, cellulitis, ischemic limb EKG interpreted by me (3pts min.). @ -None done X-rays interpreted by me (1pt min.). @ -X-ray shows osteomyelitis of the fifth toe CT interpreted by me (1pt min.). @ -None done U/S interpreted by me (1pt. min.). @ -None done What testing was considered but not performed or refused? (CT, X-rays, U/S, labs)? Why? @ -None What meds were considered but not given or refused? Why? @ -None Did you discuss the management of the patient with other professionals (professionals i.e. , PA, DIRECTOR OF VALUATION, lab, RT, psych nurse, delinquency prevention social worker, wind energy technician, teacher, optics technical officer, sample case porter)? Give summary @ -Dr. Inman for admission Was smoking cessation discussed for >3mins.? @ -No Was critical care preformed (if so, how long)? @ -No Were there social determinants of health that impacted care today? How? (Homelessness, low income, unemployed, alcoholism, drug addiction, transportation, low edu. Level, literacy, decrease access to med. care, fdc, rehab)? @ -No Was there de-escalation of care discussed even if they declined (Discuss DNR or withdrawal of care, Hospice)? DNR status @ -No What co-morbidities impacted this encounter? (DM, HTN, Smoking, COPD, CAD, Cancer, CVA, ARF, Chemo, Hep., AIDS, mental health diagnosis, sleep apnea, morbid obesity)? @ -Neuropathy Was patient admitted / discharged? Hospital course, mention meds given and route, prescriptions, significant lab abnormalities, going to OR and other pertinent info. @ -77-year-old male presents with infectious ulcer to the foot. X-rays suggest osteomyelitis. Laboratory evaluation within acceptable limits. Patient's h istory of methicillin-resistant staph aureus. Patient started on antibiotics will be admitted consultation to infectious disease. Undiagnosed new problem with uncertain prognosis? @ -No Drug Therapy requiring intensive monitoring for toxicity (Heparin, Nitro, Insulin, Cardizem)? @ -No Were any procedures done? @ -No Diagnosis/symptom? Acute, or Chronic, or Acute on Chronic? Uncomplicated (without systemic symptoms) or Complicated (systemic symptoms)? @ -1. Acute osteomyelitis Side effects of treatment? @ -No Exacerbation, Progression, or Severe Exacerbation? @ -No Poses a threat to life or bodily function? How? (Chest pain, [place], [place], pneumonia, PE, COPD, DKA, ARF, appy, cholecystitis, CVA, Diverticulitis, Homicidal, Suicidal, threat to staff... and all critical care pts) @ -yes - Lab Data Result diagrams: 01/10/23 18:21 01/10/23 18:21 Lab Results 0401/10/23 01/10/23 Range/Units 18:21 18:21 18:21 WBC 11.1 H (3.8-10.6) k/uL RBC 4.84 (4.30-5.90) m/uL Hgb 12.6 L (13.0-17.5) gm/dL Hct 40.7 (39.0-53.0) % MCV 84.2 (80.0-100.0) fL MCH 26.1 (25.0-35.0) pg MCHC 31.0 (31.0-37.0) g/dL RDW 15.4 (11.5-15.5) % Plt Count 335 (150-450) k/uL MPV 9.1 Neutrophils % 77 % Lymphocytes % 11 % Monocytes % 8 % Eosinophils % 3 % Basophils % 0 % Neutrophils # 8.5 H (1.3-7.7) k/uL Lymphocytes # 1.2 (1.0-4.8) k/uL Monocytes # 0.9 (0-1.0) k/uL Eosinophils # 0.3 (0-0.7) k/uL Basophils # 0.0 (0-0.2) k/uL ESR 31 H (0-15) mm/hr PT 11.9 (9.0-12.0) sec INR 1.1 (<1.2) APTT 29.9 (22.0-30.0) sec Sodium 140 (137-145) mmol/L Potassium 4.8 (3.5-5.1) mmol/L Chloride 100 (98-107) mmol/L Carbon Dioxide 32 H (22-30) mmol/L Anion Gap 8 mmol/L BUN 32 H (9-20) mg/dL Creatinine 1.83 H (0.66-1.25) mg/dL Est GFR (CKD-EPI)AfAm 40 (>60 ml/min/1.73 sqM) Est GFR (CKD-EPI)NonAf 34 (>60 ml/min/1.73 sqM) Glucose 141 H (74-99) mg/dL Calcium 8.7 (8.4-10.2) mg/dL C-Reactive Protein 3.3 H (<1.0) mg/dL Disposition Clinical Impression: Osteomyelitis Disposition: ADMITTED IP TO THIS HOSP Condition: Fair Referrals: Zeeshan William MD [Primary Care Provider] - 1-2 days Decision Time: 19:00
[2023-01-10 18:31] LABS: Basophils % (A) 0 %; Eosinophils # (A) 0.3 k/uL (0-0.7); Eosinophils % (A) 3 %; HCT 40.7 % (39.0-53.0); HGB 12.6 gm/dL (13.0-17.5); Lymphocytes # (A) 1.2 k/uL (1.0-4.8); Lymphocytes % (A) 11 %; MCH 26.1 pg (25.0-35.0); MCV 84.2 fL (80.0-100.0); Mean Platelet Volume 9.1; Monocytes # (A) 0.9 k/uL (0-1.0); Monocytes % (A) 8 %; Neutrophils # (A) 8.5 k/uL (1.3-7.7); Neutrophils % (A) 77 %; Platelet Count 335 k/uL (150-450); RBC 4.84 m/uL (4.30-5.90); RDW 15.4 % (11.5-15.5); WBC 11.1 k/uL (3.8-10.6)
[2023-01-10 18:41] LABS: INR 1.1 (<1.2); Partial Thromboplastin Time 29.9 sec (22.0-30.0); Prothrombin Time 11.9 sec (9.0-12.0)
[2023-01-10 18:53] LABS: C Reactive Protein 3.3 mg/dL (<1.0); Calcium 8.7 mg/dL (8.4-10.2); Potassium 4.8 mmol/L (3.5-5.1)
--- NOTE | 2023-01-10 18:54 | XR ---
EXAMINATION TYPE: XR foot limited LT DATE OF EXAM: 01/10/2023 6:31 PM INDICATION: Patient age:Male; 77 years old; Reason for study: 5th toe ulcer, hx of mrsa; COMPARISON: None TECHNIQUE: The left foot was examined in the AP, oblique, and lateral projections. FINDINGS: Fixation changes to the first, third, fourth and fifth digits with hardware in place. Hardware appear s intact. There is diffuse osseous demineralization. There is soft tissue swelling involving the fift h digit. Osseous erosion suspected around the fifth digit distal phalanx. Severe atherosclerosis of t he arterial vasculature. Multifocal degeneration changes of the joints of the foot. No evidence of ac [place] fracture. IMPRESSION: 1. No evidence of acute fracture. 2. Postsurgical changes with hardware intact. There is loss of cortex suspected around the fifth dig it. Findings suspicious for osteomyelitis. Evaluation is limited by diffuse osseous demineralization.
[2023-01-10] MEDS ORDERED: VANCOMYCIN IV PER PHARMACY 1 EACH MISC MISCELLANE PRN (19:15)
[2023-01-10] MEDS ORDERED: PIPERACILLIN-TAZOBACTAM 3.375 GM in SODIUM CHLORIDE 0.9% 100 ML IVPB STA (19:21)
[2023-01-10 19:25] LABS: Erythrocyte Sedimentation Rate 31 mm/hr (0-15)
[2023-01-10] MEDS ORDERED: NALOXONE 0.4 MG/ML 1 ML VIAL IV PRN (19:50)
[2023-01-10] MEDS ORDERED: VANCOMYCIN 1,500 MG in SODIUM CHLORIDE 0.9% 500 ML 500 ML IVPB ONE (20:00)
[2023-01-11] MEDS: PIPERACILLIN-TAZOBACTAM 3.375 GM in SODIUM CHLORIDE 0.9% 100 ML IVPB SCH ×3 (00:24→16:05)
[2023-01-11] MEDS: SODIUM CHLORIDE 0.9% 1,000 ML IV SCH ×2 (00:25→21:20)
[2023-01-11] MEDS ORDERED: LORazepam 1 MG TAB PO PRN (00:42)
--- NOTE | 2023-01-11 00:52 | P.HPIM ---
History of Present Illness H&P Date: 01/10/23 Chief Complaint: right foot ulcer 77 year old male with DM patient coming in upon recommendations of his physician at [facility],. he noticed 2 days ago a small ulcer with some bleeding over the right fifth toe laterally . he is not sure how happened, but he has history of MRSA same location in the past. he denies fever, chills, shortness of breath , chest pian , abd pain , nausea or vomiting , denies any bleeding he denies any smoking or alcohol patient wear a foot brace over the right leg due to drop foot he denies any pain , due to peripheral neuropathy from DM Review of Systems Pertinent positives as noted in HPI. All other systems were reviewed and are negative Past Medical History Past Medical History: CVA/TIA, Diabetes Mellitus, Deep Vein Thrombosis (DVT), Hypertension, Osteoarthritis (OA) Additional Past Medical History / Comment(s): wound center patient, states has DVT x3 in rt leg, past hx of diabetes and HTN, no longer requires rx since weight loss. states TIA in 2010 residual muscle weakness in rt leg, wears brace rt leg, uti . 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, pacemaker/ACID placed 2017 History of Any Multi-Drug Resistant Organisms: MRSA Date of last positivie culture/infection: 01/07/22 MDRO Source:: MRSA TOE Past Surgical History: Back Surgery, Hernia Repair, Orthopedic Surgery, Pacemaker Additional Past Surgical History / Comment(s): cervical fusion, right hip replacement, cataract surgery, penile implant Past Anesthesia/Blood Transfusion Reactions: No Reported Reaction Type of Cardiac Device: Permanent Pacemaker, AICD, Unknown Device Placement Date:: May 2018 Past Psychological History: No Psychological Hx Reported Smoking Status: Never smoker Past Alcohol Use History: None Reported Past Drug Use History: None Reported - Past Family History Mother Family Medical History: Cancer Father Family Medical History: Cancer, Coronary Artery Disease (CAD) Medications and Allergies Home Medications Medication Instructions Recorded Confirmed Type Atorvastatin [Lipitor] 10 mg PO HS 10/29/18 01/10/23 History Magnesium Oxide 400 mg PO DAILY 07/07/21 01/10/23 History Metoprolol Tartrate [Lopressor] 50 mg PO DAILY 07/07/21 01/10/23 History Tamsulosin [Flomax] 0.4 mg PO BID #0 capsule 09/13/21 01/10/23 Rx Apixaban [Eliquis] 2.5 mg PO BID 11/11/22 01/10/23 History Gabapentin [Neurontin] 300 mg PO BID 11/11/22 01/10/23 History L.acidoph,Paracasei, B.lactis 1 cap PO DAILY 11/11/22 01/10/23 History [Probiotic] Menthol-Zinc Oxide Oint 1 applic TOPICAL TID PRN 11/11/22 01/10/23 History [Calmoseptine Ointment] Sennosides [Senokot] 8.6 mg PO HS PRN 11/11/22 01/10/23 History Calcium Carbonate [Calcium] 600 mg PO BID 01/10/23 01/10/23 History Ketoconazole 2% Shampoo [Nizoral] 1 applic TOPICAL DIRECTED 01/10/23 01/10/23 History Multivit-Mins/Iron/Folic/Lycop 1 tab PO DAILY 01/10/23 01/10/23 History [Centrum Men's Tablet] Neomycin/Bacitracin/Polymyxinb 1 applic TOPICAL BID 01/10/23 01/10/23 History [Neosporin Ointment] methocarbamoL 1,000 mg PO TID 01/10/23 01/10/23 History oxyCODONE-APAP 7.5-325MG [Percocet 1 tab PO 5XD PRN 01/10/23 01/10/23 History 7.5-325 mg] Allergies Allergy/AdvReac Type Severity Reaction Status Date / Time ciprofloxacin [From Cipro] Allergy Unknown Verified 01/10/23 16:01 Physical Exam Vitals: Vital Signs Temp Pulse Resp BP Pulse Ox 01/10/23 15:32 98.5 F 80 16 157/69 96 Intake and Output 01/10/23 01/10/23 01/10/23 06:59 14:59 22:59 Other: Weight 83.007 kg Constitutional: No acute distress, conversant, pleasant Eyes: Anicteric sclerae, moist conjunctiva, Pupils equal round reactive to light ENMT: NC/AT Oropharynx clear, no erythema, or exudates Neck: Supple, no masses, or JVD No carotid bruits No thyromegaly Lungs: Clear to auscultation Clear to percussion Normal respiratory effort, no accessory muscle use Cardiovascular: Heart regular in rate and rhythm, No murmurs, gallops, or rubs No peripheral edema Abdominal: Soft Nontender, no guarding, rebound or rigidity Abdomen moving with respiration Normoactive bowel sounds No hepatomegaly, No splenomegaly No palpable mass No abdominal wall hernia noted Skin: small ulcer over lateral aspect of the right 5th toe, with erythema extending over the distal 2 thirds of the foot , warm to the touch , no drainage no tenderness to palpation , Extremities: No digital cyanosis Pedal pulses intact and symmetrical Radial pulses intact and symmetrical No calf tenderness Psychiatric: Alert and oriented to person, place Appropriate affect fair judgment Neuro Muscles Strength 4/5 in all 4 extremities Sensation to light touch grossly present throughout Cranial nerves II-XII grossly intact Lymphatics: no palpable cervical or supraclavicular lymph nodes Results CBC & Chem 7: 01/10/23 18:21 01/10/23 18:21 Labs: Abnormal Lab Results - Last 24 Hours (Table) 01/10/23 01/10/23 Range/Units 18:21 18:21 WBC 11.1 H (3.8-10.6) k/uL Hgb 12.6 L (13.0-17.5) gm/dL Neutrophils # 8.5 H (1.3-7.7) k/uL ESR 31 H (0-15) mm/hr Carbon Dioxide 32 H (22-30) mmol/L BUN 32 H (9-20) mg/dL Creatinine 1.83 H (0.66-1.25) mg/dL Glucose 141 H (74-99) mg/dL C-Reactive Protein 3.3 H (<1.0) mg/dL Assessment and Plan Assessment: 68 year old male with DM , presented with ulcer the right 5th toe, I discussed the case with ED doc , imaging suggestive of Osteomyelitis, I aCCEPTED THE admission for IV antibiotics due to history of MRSA, anticipated length of stay > 2 midnights diabetic foot ulcer , no sepsis follow up cultures ID recommendations started on zosyn 3.37 mg IVPB q8hrs and vancomycin dosing by pharmacy tylenol for fever ESR 31 elevated CRP elevated 3.3, Foot xray suggestive of osteomyelitis WBC 11.6 elevated , no fever CKD III stable , chronic BUN 32, Cr 1.8 monitor urine output avoid nephrotoxic meds h/o venous thromboembolism continue eliquis DM insulin sliding scale full code DVT PPX on eliquis
[2023-01-11] MEDS: APIXABAN 2.5 MG TABLET PO SCH ×3 (01:04→21:37)
[2023-01-11 06:27] LABS: Glucose,Whole Blood 108 mg/dL (70-110)
[2023-01-11] MEDS: INSULIN ASPART (NovoLOG) 100 UNIT/ML VIAL SQ SCH ×4 (06:36→21:39)
[2023-01-11] MEDS: TAMSULOSIN 0.4 MG CAP.ER.24H PO SCH ×2 (07:49→21:36)
[2023-01-11] MEDS: METOPROLOL TARTRATE 50 MG TAB PO SCH (07:49)
[2023-01-11] MEDS: GABAPENTIN 300 MG CAP PO SCH ×2 (07:49→21:36)
[2023-01-11] MEDS ORDERED: MORPHINE SULFATE 2 MG/ML SYRINGE IVP PRN (07:56)
[2023-01-11] MEDS: oxyCODONE-APAP 7.5-325MG 1 EACH TAB PO PRN ×2 (08:17→21:36)
--- NOTE | 2023-01-11 11:54 | P.PN ---
Subjective Progress Note Date: 01/11/23 Patient is a 77-year-old male with PMH of diabetes mellitus, CKD stage III, hypertension, history of DVT, history of TIA presenting to the ED for ulceration over the right fifth digit. He has a history of MRSA. In the ED, his vital signs are stable. CBC showed leukocytosis of 11.1. ESR was 31. Coagulation panel within normal limits. CMP showed bicarb of 32, BUN of 32, creatinine 1.83, glucose 141. CRP was 3.3. Foot x-ray showed findings suspicious for osteomyelitis. Patient is admitted for further management of symptoms. Patient was seen and examined. No acute events overnight. He reports pain in his left foot. States that Percocet usually works. He denies any chest pain, shortness breath or palpitations. No nausea or vomiting. No fever or chills. General: non toxic, no distress, appears at stated age Derm: warm, dry Head: atraumatic, normocephalic, symmetric Eyes: EOMI, no lid lag, anicteric sclera Mouth: no lip lesion, mucus membranes moist Cardiovascular: S1S2 reg, no murmur Lungs: CTA bilateral, no rhonchi, no rales , no accessory muscle use Ext: no gross muscle atrophy, no edema, no contractures, small ulcer over lateral aspect of the right 5th toe, with erythema extending over the distal 2 thirds of the foot, warm to the touch Neuro: no focal neuro deficits Psych: Alert, oriented, appropriate affect Osteomyelitis Leukocytosis Metabolic alkalosis Chronic conditions: Diabetes mellitus, CKD stage III, hypertension, history of DVT, history of TIA Based on my assessment of this patient, this patient meets a high complexity level of care. I have reviewed the following building energy consultant notes: None. I have reviewed the results of the following tests: Renal function shows improved creatinine 1.59 today. I have ordered the following tests: CBC ordered for tomorrow morning. BMP ordered for tomorrow morning. I have discussed the care of this patient with the following independent historian: None. I have independently interpreted the following test below: None. I have discussed the management of this patient with the following physician: The case was discussed extensively with Dr. Lynne. This patient has a high risk of morbidity due to the following reasons: Patient has an acute diagnosis of osteomyelitis that poses a threat to life or bodily function. He has a history of MRSA. He has been started on Vancomycin dosed per pharmacy. Also started on Zosyn 3.375 g IV every 8 hours. Vancomycin is nephrotoxic and requires monitor renal function daily BMP. Infectious disease has been consulted for further management of this patient. PT has been consulted to work with this patient. Gene for DVT prophylaxis. Patient would like to be FULL CODE. Objective - Vital Signs Vital signs: Vital Signs Temp 98.4 F 01/11/23 07:25 Pulse 86 01/11/23 07:25 Resp 16 01/11/23 07:25 BP 150/77 01/11/23 07:25 Pulse Ox 92 L 01/11/23 07:25 FiO2 Intake & Output 01/10/23 01/11/23 01/11/23 18:59 06:59 18:59 Intake Total 720 Output Total 275 Balance 445 Weight 83.007 kg 83.007 kg Intake: Intake, IV Titration 720 Amount Piperacillin-Tazobactam 3 100 .375 gm In Sodium Chloride 0.9% 100 ml @ 200 mls/hr IVPB ONCE STA Rx#:[id number] Sodium Chloride 0.9% 1, 120 000 ml @ 20 mls/hr IV . Q24H [facility] Rx#:[id number] Vancomycin 1,500 mg In 500 Sodium Chloride 0.9% 500 ml 500 ml @ 167 mls/hr IVPB Q24H [facility] Rx#: [id number] Output: Urine 275 Other: Voiding Method Urinal # Voids 1 - Labs CBC & Chem 7: 01/10/23 18:21 01/11/23 07:11 Labs: Abnormal Lab Results - Last 24 Hours (Table) 01/10/23 01/10/23 01/11/23 Range/Units 18:21 18:21 07:11 WBC 11.1 H (3.8-10.6) k/uL Hgb 12.6 L (13.0-17.5) gm/dL Neutrophils # 8.5 H (1.3-7.7) k/uL ESR 31 H (0-15) mm/hr Carbon Dioxide 32 H (22-30) mmol/L BUN 32 H (9-20) mg/dL Creatinine 1.83 H 1.59 H (0.66-1.25) mg/dL Glucose 141 H (74-99) mg/dL C-Reactive Protein 3.3 H (<1.0) mg/dL
[2023-01-11 12:07] LABS: Glucose,Whole Blood 115 mg/dL (70-110)
[2023-01-11 13:43] VITALS: BMI 22.2
[2023-01-11 16:19] LABS: Glucose,Whole Blood 165 mg/dL (70-110)
[2023-01-11] MEDS: VANCOMYCIN 1,500 MG in SODIUM CHLORIDE 0.9% 500 ML 500 ML IVPB SCH (17:54)
[2023-01-11 20:26] LABS: Glucose,Whole Blood 125 mg/dL (70-110)
[2023-01-11] MEDS: ATORVASTATIN 10 MG TAB PO SCH (21:37)
--- NOTE | 2023-01-11 21:46 | P.CONS ---
History of Present Illness - Reason for Consult Consult date: 01/11/23 - History of Present Illness Patient is a 77-year-old male with a past medical history significant for CVA TIA diabetes mellitus DVT hypertension osteoarthritis and a previous history of infection to the left lower extremity, the patient noticed to have a ulcer on the lateral aspect of his left fifth toe laterally noticed about 2 days ago patient denies any history of any trauma and him patient do not have sign ificant sensation in his lower extremity and denies significant pain or any drainage from it however the patient noticed to have increasing swelling and redness on the dorsal aspect of his left foot for the patient was brought into the hospital on arrival to the ER the patient was afebrile and no fever has been recorded subsequently patient did have white count of 11.1 with a left shift BUN/creatinine is mildly elevated CRP of 3.3 and a sed rate of 30 patient did have a x-ray of the left foot with evidence of some cortical destruction and hardware patient was started on Zosyn and vancomycin as the patient did have a previous history of MRSA infection infectious disease was consulted for further management of antibiotic therapy Past Medical History Past Medical History: CVA/TIA, Diabetes Mellitus, Deep Vein Thrombosis (DVT), Hypertension, Osteoarthritis (OA) Additional Past Medical History / Comment(s): wound center patient, states has DVT x3 in rt leg, past hx of diabetes and HTN, no longer requires rx since weight loss. states TIA in 2010 residual muscle weakness in rt leg, wears brace rt leg, uti . 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, pacemaker/ACID placed 2017 History of Any Multi-Drug Resistant Organisms: MRSA Year Discovered:: 01/07/22 MDRO Source:: MRSA TOE Past Surgical History: Back Surgery, Hernia Repair, Orthopedic Surgery, Pacemaker Additional Past Surgical History / Comment(s): cervical fusion, right hip replacement, cataract surgery, penile implant Past Anesthesia/Blood Transfusion Reactions: No Reported Reaction Type of Cardiac Device: Permanent Pacemaker, AICD, Unknown Device Placement Date:: May 2018 Past Psychological History: No Psychological Hx Reported Smoking Status: Never smoker Past Alcohol Use History: None Reported Past Drug Use History: None Reported - Past Family History Mother Family Medical History: Cancer Father Family Medical History: Cancer, Coronary Artery Disease (CAD) Medications and Allergies Home Medications Medication Instructions Recorded Confirmed Type Atorvastatin [Lipitor] 10 mg PO HS 10/29/18 01/10/23 History Magnesium Oxide 400 mg PO DAILY 07/07/21 01/10/23 History Metoprolol Tartrate [Lopressor] 50 mg PO DAILY 07/07/21 01/10/23 History Tamsulosin [Flomax] 0.4 mg PO BID #0 capsule 09/13/21 01/10/23 Rx Apixaban [Eliquis] 2.5 mg PO BID 11/11/22 01/10/23 History Gabapentin [Neurontin] 300 mg PO BID 11/11/22 01/10/23 History L.acidoph,Paracasei, B.lactis 1 cap PO DAILY 11/11/22 01/10/23 History [Probiotic] Menthol-Zinc Oxide Oint 1 applic TOPICAL TID PRN 11/11/22 01/10/23 History [Calmoseptine Ointment] Sennosides [Senokot] 8.6 mg PO HS PRN 11/11/22 01/10/23 History Calcium Carbonate [Calcium] 600 mg PO BID 01/10/23 01/10/23 History Ketoconazole 2% Shampoo [Nizoral] 1 applic TOPICAL DIRECTED 01/10/23 01/10/23 History Multivit-Mins/Iron/Folic/Lycop 1 tab PO DAILY 01/10/23 01/10/23 History [Centrum Men's Tablet] Neomycin/Bacitracin/Polymyxinb 1 applic TOPICAL BID 01/10/23 01/10/23 History [Neosporin Ointment] methocarbamoL 1,000 mg PO TID 01/10/23 01/10/23 History oxyCODONE-APAP 7.5-325MG [Percocet 1 tab PO 5XD PRN 01/10/23 01/10/23 History 7.5-325 mg] Allergies Allergy/AdvReac Type Severity Reaction Status Date / Time ciprofloxacin [From Cipro] Allergy Unknown Verified 01/10/23 16:01 Physical Exam Vitals: Vital Signs Temp Pulse Pulse Resp BP BP Pulse Ox 01/11/23 07:25 98.4 F 86 16 150/77 92 L 01/11/23 00:56 98.7 F 78 16 193/80 95 01/11/23 00:04 79 16 190/93 97 01/10/23 20:36 83 18 180/89 95 01/10/23 20:00 16 01/10/23 15:32 98.5 F 80 16 157/69 96 Intake and Output 01/10/23 01/11/23 01/11/23 22:59 06:59 14:59 Intake Total 720 Output Total 275 Balance 445 Intake: Intake, IV Titration 720 Amount Piperacillin-Tazobactam 3 100 .375 gm In Sodium Chloride 0.9% 100 ml @ 200 mls/hr IVPB ONCE STA Rx#:[id number] Sodium Chloride 0.9% 1, 120 000 ml @ 20 mls/hr IV . Q24H [facility] Rx#:[id number] Vancomycin 1,500 mg In 500 Sodium Chloride 0.9% 500 ml 500 ml @ 167 mls/hr IVPB Q24H [facility] Rx#: [id number] Output: Urine 275 Other: Voiding Method Urinal # Voids 1 Weight 83.007 kg Results CBC & Chem 7: 01/10/23 18:21 01/11/23 07:11 Labs: Abnormal Lab Results - Last 24 Hours (Table) 01/10/23 01/10/23 01/11/23 Range/Units 18:21 18:21 07:11 WBC 11.1 H (3.8-10.6) k/uL Hgb 12.6 L (13.0-17.5) gm/dL Neutrophils # 8.5 H (1.3-7.7) k/uL ESR 31 H (0-15) mm/hr Carbon Dioxide 32 H (22-30) mmol/L BUN 32 H (9-20) mg/dL Creatinine 1.83 H 1.59 H (0.66-1.25) mg/dL Glucose 141 H (74-99) mg/dL POC Glucose (mg/dL) (70-110) mg/dL C-Reactive Protein 3.3 H (<1.0) mg/dL 01/11/23 Range/Units 12:05 WBC (3.8-10.6) k/uL Hgb (13.0-17.5) gm/dL Neutrophils # (1.3-7.7) k/uL ESR (0-15) mm/hr Carbon Dioxide (22-30) mmol/L BUN (9-20) mg/dL Creatinine (0.66-1.25) mg/dL Glucose (74-99) mg/dL POC Glucose (mg/dL) 115 H (70-110) mg/dL C-Reactive Protein (<1.0) mg/dL Assessment and Plan Plan: 1patient with a left fifth toe nonhealing wound and cellulitis likely from gram-positive skin rogelio patient did have a history of hardware to the toe to keep them straight concerning for possible osteomyelitis as there was some cortical erosion and possible infection of the hardware with a previous history of MRSA infection likely infecting pathogen 2-local wound culture has been obtained to guide further antibiotic therapy 3-x-rays will be reviewed with radiologist 4-renal insufficiency and high risk of nephrotoxicity 5-we will continue with the vancomycin however discontinue Zosyn to decrease his risk of nephrotoxicity 6-dry Aquacel dressing to the left fifth toe wound change every 48 hour We will follow on clinical condition and cultures to further adjust medication if needed Thank you for this consultation we will follow the patient along with you Time with Patient: Greater than 30
[2023-01-12] MEDS: oxyCODONE-APAP 7.5-325MG 1 EACH TAB PO PRN ×2 (05:42→17:35)
[2023-01-12 06:24] LABS: Glucose,Whole Blood 98 mg/dL (70-110)
[2023-01-12] MEDS: INSULIN ASPART (NovoLOG) 100 UNIT/ML VIAL SQ SCH ×4 (08:19→21:32)
[2023-01-12] MEDS: TAMSULOSIN 0.4 MG CAP.ER.24H PO SCH ×2 (08:21→21:30)
[2023-01-12] MEDS: METOPROLOL TARTRATE 50 MG TAB PO SCH ×2 (08:21→21:30)
[2023-01-12] MEDS: GABAPENTIN 300 MG CAP PO SCH ×2 (08:21→21:30)
[2023-01-12] MEDS: cloNIDine HCL 0.2 MG TAB PO PRN ×2 (08:22→14:41)
[2023-01-12] MEDS: APIXABAN 2.5 MG TABLET PO SCH ×2 (08:22→21:30)
[2023-01-12 11:29] LABS: Glucose,Whole Blood 145 mg/dL (70-110)
--- NOTE | 2023-01-12 13:41 | P.PN ---
Subjective Progress Note Date: 01/12/23 Patient is a 77-year-old male with PMH of diabetes mellitus, CKD stage III, hypertension, history of DVT, history of TIA presenting to the ED for ulceration over the right fifth digit. He has a history of MRSA. In the ED, his vital signs are stable. CBC showed leukocytosis of 11.1. ESR was 31. Coagulation panel within normal limits. CMP showed bicarb of 32, BUN of 32, creatinine 1.83, glucose 141. CRP was 3.3. Foot x-ray showed findings suspicious for osteomyelitis. Patient is admitted for further management of symptoms. Patient was seen and examined. No acute events overnight. He reports no complaints today. He denies any chest pain, shortness breath or palpitations. No nausea or vomiting. No fever or chills. General: non toxic, no distress, appears at stated age Derm: warm, dry Head: atraumatic, normocephalic, symmetric Eyes: EOMI, no lid lag, anicteric sclera Mouth: no lip lesion, mucus membranes moist Cardiovascular: S1S2 reg, no murmur Lungs: CTA bilateral, no rhonchi, no rales , no accessory muscle use Ext: no gross muscle atrophy, no edema, no contractures, small ulcer over lateral aspect of the right 5th toe, with erythema extending over the distal 2 thirds of the foot, warm to the touch Neuro: no focal neuro deficits Psych: Alert, oriented, appropriate affect Osteomyelitis Leukocytosis Metabolic alkalosis Chronic conditions: Diabetes mellitus, CKD stage III, hypertension, history of DVT, history of TIA Based on my assessment of this patient, this patient meets a high complexity level of care. I have reviewed the following learning and development consultant notes: Infectious disease note 01/11, continue Vancomycin, discontinue Zosyn, follow wound culture. I have reviewed the results of the following tests: Renal function shows stable creatinine 1.59 today. I have ordered the following tests: Renal function ordered for tomorrow morning. Wound culture is pending. I have discussed the care of this patient with the following independent historian: None. I have independently interpreted the following test below: None. I have discussed the management of this patient with the following physician: The case was discussed extensively with Dr. Lynne. This patient has a high risk of morbidity due to the following reasons: Patient has an acute diagnosis of osteomyelitis that poses a threat to life or bodily function. He has a history of MRSA. He has been started on Vancomycin dosed per pharmacy. Zosyn discontinued. Vancomycin is nephrotoxic and requires monitor renal function daily BMP. Infectious disease has been consulted for further management of this patient. PT has been consulted to work with this patient. Gene for DVT prophylaxis. Patient would like to be FULL CODE. Objective - Vital Signs Vital signs: Vital Signs Temp 97.3 F L 01/12/23 07:31 Pulse 73 01/12/23 07:31 Resp 16 01/12/23 07:31 BP 138/77 01/12/23 09:08 Pulse Ox 93 L 01/12/23 07:31 FiO2 Intake & Output 01/11/23 01/12/23 01/12/23 18:59 06:59 18:59 Intake Total 200 Output Total 1000 755 625 Balance -0841 -389 -752 Weight 83.007 kg Intake: Intake, IV Titration 200 Amount Piperacillin-Tazobactam 3 100 .375 gm In Sodium Chloride 0.9% 100 ml @ 25 mls/hr IVPB Q8HR [facility] Rx# :[id number] Sodium Chloride 0.9% 1, 100 000 ml @ 20 mls/hr IV . Q24H [facility] Rx#:[id number] Output: Urine 1000 755 625 - Labs CBC & Chem 7: 01/10/23 18:21 01/12/23 05:32 Labs: Abnormal Lab Results - Last 24 Hours (Table) 01/11/23 01/11/23 01/12/23 Range/Units 16:17 20:24 05:32 Creatinine 1.59 H (0.66-1.25) mg/dL POC Glucose (mg/dL) 165 H 125 H (70-110) mg/dL 01/12/23 Range/Units 11:27 Creatinine (0.66-1.25) mg/dL POC Glucose (mg/dL) 145 H (70-110) mg/dL Microbiology - Last 24 Hours (Table) 01/11/23 12:43 Anaerobic Culture - Preliminary Toe - Left Fifth 01/11/23 12:50 Wound Culture - Preliminary Toe - Left Fifth
[2023-01-12 16:38] LABS: Glucose,Whole Blood 192 mg/dL (70-110)
--- NOTE | 2023-01-12 16:48 | P.PN ---
Subjective Progress Note Date: 01/12/23 Principal diagnosis: Left fifth toe wound and cellulitis Patient is a 77-year-old male with a past medical history significant for CVA TIA diabetes mellitus DVT hypertension osteoarthritis and a previous history of infection to the left lower extremity, the patient noticed to have a ulcer on the lateral aspect of his left fifth toe, abnormal x-ray concerning for possible Osteomyelitis On today's evaluation that is 01/12/2023, the patient denies having any fever or chills, the patient seemed to be slight concern about his blood pressure being elevated denies pain to the fifth toe area no chest pain shortness of breath or cough no abdominal pain or diarrhea Objective - Vital Signs Vital signs: Vital Signs Temp 97.6 F 01/12/23 14:18 Pulse 69 01/12/23 16:10 Resp 16 01/12/23 14:18 BP 187/77 01/12/23 16:10 Pulse Ox 94 L 01/12/23 14:18 FiO2 Intake & Output 01/11/23 01/12/23 01/12/23 18:59 06:59 18:59 Intake Total 200 Output Total 1000 755 625 Balance -1000 -748 -625 Weight 83.007 kg Intake: Intake, IV Titration 200 Amount Piperacillin-Tazobactam 3 100 .375 gm In Sodium Chloride 0.9% 100 ml @ 25 mls/hr IVPB Q8HR [facility] Rx# :[id number] Sodium Chloride 0.9% 1, 100 000 ml @ 20 mls/hr IV . Q24H [facility] Rx#:[id number] Output: Urine 1000 755 625 Other: # Voids 1 # Bowel Movements 1 - Exam GENERAL DESCRIPTION: An elderly male lying in bed in no distress RESPIRATORY SYSTEM: Unlabored breathing , decreased breath sounds at bases HEART: S1 S2 regular rate and rhythm , ABDOMEN: Soft , no tenderness EXTREMITIES: Left foot is currently dressed - Labs CBC & Chem 7: 01/10/23 18:21 01/12/23 05:32 Labs: Abnormal Lab Results - Last 24 Hours (Table) 01/11/23 01/12/23 01/12/23 Range/Units 20:24 05:32 11:27 Creatinine 1.59 H (0.66-1.25) mg/dL POC Glucose (mg/dL) 125 H 145 H (70-110) mg/dL 01/12/23 Range/Units 16:37 Creatinine (0.66-1.25) mg/dL POC Glucose (mg/dL) 192 H (70-110) mg/dL Microbiology - Last 24 Hours (Table) 01/11/23 12:43 Anaerobic Culture - Preliminary Toe - Left Fifth 01/11/23 12:50 Wound Culture - Preliminary Toe - Left Fifth Assessment and Plan (1) Ulcer of left foot due to type 2 diabetes mellitus Current Visit: Yes Status: Acute Code(s): E11.621 - TYPE 2 DIABETES MELLITUS WITH FOOT ULCER; L97.529 - NON-PRESSURE CHRONIC ULCER OTH PRT LEFT FOOT W UNSP SEVERITY SNOMED Code(s): 87668536647667617 Plan: 1patient with a left fifth toe nonhealing wound and cellulitis likely from gram-positive skin rogelio patient did have a history of hardware to the toe to keep them straight concerning for possible osteomyelitis as there was some cortical erosion and possible infection of the hardware with a previous history of MRSA infection likely infecting pathogen 2-local wound culture has been obtained to guide further antibiotic therapy, which is currently pending 3-patient to continue with vancomycin while waiting for the cultures to finalize 4-dry Aquacel dressing to the left fifth toe wound change every 48 hour Time with Patient: Less than 30
[2023-01-12] MEDS: VANCOMYCIN 1,500 MG in SODIUM CHLORIDE 0.9% 500 ML 500 ML IVPB SCH (18:28)
[2023-01-12 20:42] LABS: Glucose,Whole Blood 129 mg/dL (70-110)
[2023-01-12] MEDS: ATORVASTATIN 10 MG TAB PO SCH (21:30)
[2023-01-12] MEDS: SODIUM CHLORIDE 0.9% 1,000 ML IV SCH (21:32)
[2023-01-13 06:30] LABS: Glucose,Whole Blood 116 mg/dL (70-110)
[2023-01-13] MEDS: INSULIN ASPART (NovoLOG) 100 UNIT/ML VIAL SQ SCH ×4 (06:38→21:41)
[2023-01-13] MEDS: oxyCODONE-APAP 7.5-325MG 1 EACH TAB PO PRN ×3 (08:51→20:35)
[2023-01-13] MEDS: APIXABAN 2.5 MG TABLET PO SCH ×2 (10:00→20:35)
[2023-01-13] MEDS: GABAPENTIN 300 MG CAP PO SCH ×2 (10:00→20:35)
[2023-01-13] MEDS: METOPROLOL TARTRATE 50 MG TAB PO SCH ×2 (10:00→20:33)
[2023-01-13] MEDS: TAMSULOSIN 0.4 MG CAP.ER.24H PO SCH ×2 (10:00→20:34)
[2023-01-13 11:30] LABS: Glucose,Whole Blood 186 mg/dL (70-110)
--- NOTE | 2023-01-13 13:29 | P.PN ---
Subjective Progress Note Date: 01/13/23 Patient is a 77-year-old male with PMH of diabetes mellitus, CKD stage III, hypertension, history of DVT, history of TIA presenting to the ED for ulceration over the right fifth digit. He has a history of MRSA. In the ED, his vital signs are stable. CBC showed leukocytosis of 11.1. ESR was 31. Coagulation panel within normal limits. CMP showed bicarb of 32, BUN of 32, creatinine 1.83, glucose 141. CRP was 3.3. Foot x-ray showed findings suspicious for osteomyelitis. Patient is admitted for further management of symptoms. Patient was seen and examined. No acute events overnight. He reports no complaints today. He denies any chest pain, shortness breath or palpitations. No nausea or vomiting. No fever or chills. General: non toxic, no distress, appears at stated age Derm: warm, dry Head: atraumatic, normocephalic, symmetric Eyes: EOMI, no lid lag, anicteric sclera Mouth: no lip lesion, mucus membranes moist Cardiovascular: S1S2 reg, no murmur Lungs: CTA bilateral, no rhonchi, no rales , no accessory muscle use Ext: no gross muscle atrophy, no edema, no contractures, small ulcer over lateral aspect of the right 5th toe, with erythema extending over the distal 2 thirds of the foot, warm to the touch Neuro: no focal neuro deficits Psych: Alert, oriented, appropriate affect Osteomyelitis Leukocytosis Metabolic alkalosis Chronic conditions: Diabetes mellitus, CKD stage III, hypertension, history of DVT, history of TIA Based on my assessment of this patient, this patient meets a high complexity level of care. I have reviewed the following environmental remediation consultant notes: Infectious disease note 01/13, continue Vancomycin, discontinue Zosyn, follow wound culture. I have reviewed the results of the following tests: Renal function shows stable creatinine 1.39 today. Wound culture presumptive MRSA. I have ordered the following tests: Renal function ordered for tomorrow morning. Bone scan ordered. I have discussed the care of this patient with the following independent histori an: None. I have independently interpreted the following test below: None. I have discussed the management of this patient with the following physician: The case was discussed extensively with Dr. Lynne, plans to order bone scan and surgical consult. This patient has a high risk of morbidity due to the following reasons: Patient has an acute diagnosis of osteomyelitis that poses a threat to life or bodily function. He has a history of MRSA. He has been started on Vancomycin dosed per pharmacy. Zosyn discontinued. Vancomycin is nephrotoxic and requires monitor renal function daily BMP. Infectious disease has been consulted for further management of this patient. PT has been consulted to work with this patient. Gene for DVT prophylaxis. Patient would like to be FULL CODE. Objective - Vital Signs Vital signs: Vital Signs Temp 97.1 F L 01/13/23 07:11 Pulse 63 01/13/23 08:51 Resp 15 01/13/23 08:51 BP 165/85 01/13/23 07:11 Pulse Ox 93 L 01/13/23 07:11 FiO2 Intake & Output 01/12/23 01/13/23 01/13/23 18:59 06:59 18:59 Output Total 625 700 Balance -625 -700 Output: Urine 625 700 Other: Voiding Method Urinal # Voids 1 1 # Bowel Movements 1 - Labs CBC & Chem 7: 01/10/23 18:21 01/13/23 06:45 Labs: Abnormal Lab Results - Last 24 Hours (Table) 01/12/23 01/12/23 01/13/23 Range/Units 16:37 20:41 06:28 Creatinine (0.66-1.25) mg/dL POC Glucose (mg/dL) 192 H 129 H 116 H (70-110) mg/dL 01/13/23 01/13/23 Range/Units 06:45 11:27 Creatinine 1.39 H (0.66-1.25) mg/dL POC Glucose (mg/dL) 186 H (70-110) mg/dL Microbiology - Last 24 Hours (Table) 01/11/23 12:50 Gram Stain - Preliminary Toe - Left Fifth Wound Culture - Preliminary Presumptive MRSA 01/11/23 12:43 Anaerobic Culture - Preliminary Toe - Left Fifth
[2023-01-13] MEDS: BENZOCAINE/MENTHOL LOZENG 1 EACH LOZENGE MUCOUS MEM PRN ×2 (13:55→20:35)
[2023-01-13 17:07] LABS: Glucose,Whole Blood 131 mg/dL (70-110)
[2023-01-13] MEDS: VANCOMYCIN 1,500 MG in SODIUM CHLORIDE 0.9% 500 ML 500 ML IVPB SCH (18:03)
[2023-01-13] MEDS: ATORVASTATIN 10 MG TAB PO SCH (20:35)
[2023-01-13] MEDS: SODIUM CHLORIDE 0.9% 1,000 ML IV SCH (21:25)
[2023-01-13 21:30] LABS: Glucose,Whole Blood 255 mg/dL (70-110)
--- NOTE | 2023-01-13 21:46 | P.PN ---
Subjective Progress Note Date: 01/13/23 Principal diagnosis: Left fifth toe wound and cellulitis Patient is a 77-year-old male with a past medical history significant for CVA TIA diabetes mellitus DVT hypertension osteoarthritis and a previous history of infection to the left lower extremity, the patient noticed to have a ulcer on the lateral aspect of his left fifth toe, abnormal x-ray concerning for possible Osteomyelitis On today's evaluation that is 01/13/2023, the patient remains to be afebrile, the patient is breathing comfortably on on room air, the patient denies chest pain shortness of breath or cough or pain to the left fifth toe area Objective - Vital Signs Vital signs: Vital Signs Temp 97.1 F L 01/13/23 07:11 Pulse 63 01/13/23 08:51 Resp 15 01/13/23 08:51 BP 165/85 01/13/23 07:11 Pulse Ox 93 L 01/13/23 07:11 FiO2 Intake & Output 01/12/23 01/13/23 01/13/23 18:59 06:59 18:59 Output Total 625 700 Balance -625 -700 Output: Urine 625 700 Other: Voiding Method Urinal # Voids 1 1 # Bowel Movements 1 - Exam GENERAL DESCRIPTION: An elderly male lying in bed in no distress RESPIRATORY SYSTEM: Unlabored breathing , decreased breath sounds at bases HEART: S1 S2 regular rate and rhythm , ABDOMEN: Soft , no tenderness EXTREMITIES: Left foot is currently dressed - Labs CBC & Chem 7: 01/10/23 18:21 01/13/23 06:45 Labs: Abnormal Lab Results - Last 24 Hours (Table) 01/12/23 01/12/23 01/13/23 Range/Units 16:37 20:41 06:28 Creatinine (0.66-1.25) mg/dL POC Glucose (mg/dL) 192 H 129 H 116 H (70-110) mg/dL 01/13/23 01/13/23 Range/Units 06:45 11:27 Creatinine 1.39 H (0.66-1.25) mg/dL POC Glucose (mg/dL) 186 H (70-110) mg/dL Microbiology - Last 24 Hours (Table) 01/11/23 12:50 Gram Stain - Preliminary Toe - Left Fifth Wound Culture - Preliminary Presumptive MRSA 01/11/23 12:43 Anaerobic Culture - Preliminary Toe - Left Fifth Assessment and Plan (1) Ulcer of left foot due to type 2 diabetes mellitus Current Visit: Yes Status: Acute Code(s): E11.621 - TYPE 2 DIABETES MELLITUS WITH FOOT ULCER; L97.529 - NON-PRESSURE CHRONIC ULCER OTH PRT LEFT FOOT W UNSP SEVERITY SNOMED Code(s): 86386989723081873 Plan: 1patient with a left fifth toe nonhealing wound and cellulitis likely from gra m-positive skin rogelio patient did have a history of hardware to the toe to keep them straight concerning for possible osteomyelitis as there was some cortical erosion and possible infection of the hardware with a previous history of MRSA infection likely infecting pathogen 2-local wound culture growing presumptive MRSA 3-patient to continue with vancomycin , keeping in mind abnormal x-ray especial ly with the hardware patient will benefit from foot and ankle orthopedics evaluation for possible removal of hardware if infected and also check a bone scan, discussed with the admitting team Time with Patient: Less than 30
[2023-01-14 06:15] LABS: Glucose,Whole Blood 98 mg/dL (70-110)
[2023-01-14] MEDS: INSULIN ASPART (NovoLOG) 100 UNIT/ML VIAL SQ SCH ×4 (06:31→21:58)
[2023-01-14] MEDS: TAMSULOSIN 0.4 MG CAP.ER.24H PO SCH ×2 (08:59→21:42)
[2023-01-14] MEDS: APIXABAN 2.5 MG TABLET PO SCH ×2 (08:59→21:42)
[2023-01-14] MEDS: GABAPENTIN 300 MG CAP PO SCH ×2 (08:59→21:42)
[2023-01-14] MEDS: METOPROLOL TARTRATE 50 MG TAB PO SCH ×2 (09:04→21:42)
[2023-01-14] MEDS: oxyCODONE-APAP 7.5-325MG 1 EACH TAB PO PRN ×2 (09:18→21:42)
[2023-01-14 11:02] LABS: Glucose,Whole Blood 167 mg/dL (70-110)
--- NOTE | 2023-01-14 14:17 | NM ---
EXAMINATION TYPE: NM bone 3 phase DATE OF EXAM: 01/14/2023 COMPARISON: 01/10/2023 plain films HISTORY: Osteomyelitis Triple phase bone scintigraphy was performed following the injection of 24.5 mCi Tc 99m MDP. Blood f low, pool images and 5 hours post injection images acquired. FINDINGS: Blood flow: There is increased flow to the fifth digit. Blood pool: There is focal radiotracer accumulation within the distal fifth digit compared to the rem aining portion of the foot. Static images: The left foot there is Focal uptake is present in the distal fifth digit. Additional u ptake is present to a mild degree and fourth digit likely within the third digit. There is some mild uptake also present within the distal digits of the right foot which appear less than on the left. IMPRESSION: 1. Increased radiotracer accumulation to the fifth digit on all 3 phases of bone scan suggestive for fifth digit osteomyelitis.
--- NOTE | 2023-01-14 14:17 | P.PN ---
Subjective Progress Note Date: 01/14/23 Hospital Course: Patient is a 77-year-old male with PMH of diabetes mellitus, CKD stage III, hypertension, history of DVT, history of TIA presenting to the ED for ulceration over the right fifth digit. He has a history of MRSA. In the ED, his vital signs are stable. CBC showed leukocytosis of 11.1. ESR was 31. Coagulation panel within normal limits. CMP showed bicarb of 32, BUN of 32, creatinine 1.83, glucose 141. CRP was 3.3. Foot x-ray showed findings suspicious for osteomyelitis. ID consulted, patient started on vancomycin, bone scan pending. Subjective: Patient seen and examined at bedside. No acute events overnight. Denies any chest pain, respiratory complaints, abdominal complaints, urinary or bowel complaints. Pertinent positives and negatives as discussed above, a complete review of systems was performed and all other systems are negative. Vitals Signs Reviewed. General: nontoxic, no distress, appears at stated age Derm: warm, dry, left foot not examined, dressing in place Head: atraumatic, normocephalic, symmetric Eyes: EOMI, no lid lag, anicteric sclera Mouth: no lip lesion, mucus membranes moist Cardiovascular: S1S2 reg, no murmur Lungs: CTA bilateral, no rhonchi, no rales , no accessory muscle use Abdominal: soft, nontender to palpation, no guarding, no appreciable organomegaly Ext: no gross muscle atrophy, no edema, no contractures Neuro: CN II-XI grossly intact, no focal neuro deficits Psych: Alert, oriented, appropriate affect Data Reviewed Today: Pertinent Labs: Blood sugars range between 98-255 Wound cultures positive for MRSA Assessment and Plan: Active: Acute Osteomyelitis Leukocytosis Metabolic alkalosis Diabetes mellitus Hypertensive urgency -Continue IV vancomycin, dosing based on trough levels, monitor for renal toxicity, daily BMP -ID consulted, pending bone scan -Pain control with IV morphine as needed, oral Percocet as needed -Surgery consulted -Sliding scale insulin, no changes today -Clonidine 0.2 mg 3 times a day as needed, blood pressure not well controlled Chronic: Chronic kidney disease History Hypertension History of DVT History of TIA DVT ppx: Eliquis Code status: Full code Anticipated discharge place: Pending clinical course Anticipated discharge time: Pending clinical course Objective - Vital Signs Vital signs: Vital Signs Temp 97.7 F 01/14/23 07:09 Pulse 73 04/18/23 09:27 Resp 17 01/14/23 09:27 BP 125/80 01/14/23 08:50 Pulse Ox 97 01/14/23 08:50 FiO2 Intake & Output 01/13/23 01/14/23 01/14/23 18:59 06:59 18:59 Output Total 250 Balance -250 Output: Urine 250 Other: Voiding Method Urinal Urinal Urinal # Voids 6 # Bowel Movements 1 - Labs CBC & Chem 7: 01/10/23 18:21 01/13/23 06:45 Labs: Abnormal Lab Results - Last 24 Hours (Table) 01/13/23 01/13/23 01/14/23 Range/Units 17:05 21:22 11:00 POC Glucose (mg/dL) 131 H 255 H 167 H (70-110) mg/dL Microbiology - Last 24 Hours (Table) 01/11/23 12:50 Gram Stain - Final Toe - Left Fifth Wound Culture - Final Methicillin resist S. aureus
--- NOTE | 2023-01-14 15:51 | P.CNOR ---
History of Present Illness - [facility] Consult date: 01/14/23 Requesting physician: Pablito Lynne Consult reason: other (osteomyelitis left 5th toe) History of present illness: Patient is a 77-year-old male with a past medical history significant for CVA TIA diabetes mellitus DVT hypertension osteoarthritis and a previous history of infection to the left lower extremity, the patient noticed to have a ulcer on the lateral aspect of his left fifth toe laterally noticed about 2 days ago patient denies any history of any trauma and him patient do not have significant sensation in his lower extremity and denies significant pain or any drainage from it however the patient noticed to have increasing swelling and redness on the dorsal aspect of his left foot for the patient was brought into the hospital on arrival to the ER the patient was afebrile and no fever has been recorded subsequently patient did have white count of 11.1 with a left shift BUN/creatinine is mildly elevated CRP of 3.3 and a sed rate of 30 patient did have a x-ray of the left foot with evidence of some cortical destruction and hardware. Bone scan also performed that showed uptake in the delayed phase of the fifth digit patient was started on Zosyn and vancomycin as the patient did have a previous history of MRSA infection infectious disease also consulted for further management of antibiotic therapy. I been asked to consult the patient to evaluate the need for any surgical intervention. Patient states that he's had previous infections in this left foot. At some point the patient undergone back surgery which cause nerve damage and deformity to the left foot. Areas of pressure ulcers and developed on the lateral side of the left foot that then bec migdalia infected. Patient also had flexion deformities of his toes that required surgical intervention. Patient states that he had his toe straightened and screws inserted to hold the toe straight. Past Medical History Past Medical History: CVA/TIA, Diabetes Mellitus, Deep Vein Thrombosis (DVT), Hypertension, Osteoarthritis (OA) Additional Past Medical History / Comment(s): wound center patient, states has DVT x3 in rt leg, past hx of diabetes and HTN, no longer requires rx since weight loss. states TIA in 2010 residual muscle weakness in rt leg, wears brace rt leg, uti . 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, pacemaker/ACID placed 2017 History of Any Multi-Drug Resistant Organisms: MRSA Year Discovered:: 01/07/22 MDRO Source:: MRSA TOE Past Surgical History: Back Surgery, Hernia Repair, Orthopedic Surgery, Pacemaker Additional Past Surgical History / Comment(s): cervical fusion, right hip replacement, cataract surgery, penile implant Past Anesthesia/Blood Transfusion Reactions: No Reported Reaction Type of Cardiac Device: Permanent Pacemaker, AICD, Unknown Device Placement Date:: May 2018 Past Psychological History: No Psychological Hx Reported Smoking Status: Never smoker Past Alcohol Use History: None Reported Past Drug Use History: None Reported - Past Family History Mother Family Medical History: Cancer Father Family Medical History: Cancer, Coronary Artery Disease (CAD) Medications and Allergies Home Medications Medication Instructions Recorded Confirmed Type Atorvastatin [Lipitor] 10 mg PO HS 10/29/18 01/10/23 History Magnesium Oxide 400 mg PO DAILY 07/07/21 01/10/23 History Metoprolol Tartrate [Lopressor] 50 mg PO DAILY 07/07/21 01/10/23 History Tamsulosin [Flomax] 0.4 mg PO BID #0 capsule 09/13/21 01/10/23 Rx Apixaban [Eliquis] 2.5 mg PO BID 11/11/22 01/10/23 History Gabapentin [Neurontin] 300 mg PO BID 11/11/22 01/10/23 History L.acidoph,Paracasei, B.lactis 1 cap PO DAILY 11/11/22 01/10/23 History [Probiotic] Menthol-Zinc Oxide Oint 1 applic TOPICAL TID PRN 11/11/22 01/10/23 History [Calmoseptine Ointment] Sennosides [Senokot] 8.6 mg PO HS PRN 11/11/22 01/10/23 History Calcium Carbonate [Calcium] 600 mg PO BID 01/10/23 01/10/23 History Ketoconazole 2% Shampoo [Nizoral] 1 applic TOPICAL DIRECTED 01/10/23 01/10/23 History Multivit-Mins/Iron/Folic/Lycop 1 tab PO DAILY 01/10/23 01/10/23 History [Centrum Men's Tablet] Neomycin/Bacitracin/Polymyxinb 1 applic TOPICAL BID 01/10/23 01/10/23 History [Neosporin Ointment] methocarbamoL 1,000 mg PO TID 01/10/23 01/10/23 History oxyCODONE-APAP 7.5-325MG [Percocet 1 tab PO 5XD PRN 01/10/23 01/10/23 History 7.5-325 mg] Allergies Allergy/AdvReac Type Severity Reaction Status Date / Time ciprofloxacin [From Cipro] Allergy Unknown Verified 01/10/23 16:01 Physical Examination Osteopathic Statement: *. No significant issues noted on an osteopathic structural exam other than those noted in the History and Physical/Consult. The patient was evaluated at bedside. Patient had a dressing on the lateral side of the left foot. Patient is alert and oriented 3. Which shows a dry, full-thickness ulceration on the lateral side of the fifth toe. There is mild erythema and edema on the fifth digit. No tenderness to operation. Skin is warm, dry, atrophic throughout the left foot. Pedal pulses are palpable. Capillary refill intact in all digits on the left foot. Absent light touch sensation throughout the left foot. Results - Labs Labs: Abnormal Lab Results - Last 24 Hours (Table) 01/13/23 01/13/23 01/14/23 Range/Units 17:05 21:22 11:00 POC Glucose (mg/dL) 131 H 255 H 167 H (70-110) mg/dL Microbiology - Last 24 Hours (Table) 01/11/23 12:50 Gram Stain - Final Toe - Left Fifth Wound Culture - Final Methicillin resist S. aureus H & H 01/10/23 Range/Units 18:21 Hgb 12.6 L (13.0-17.5) gm/dL Hct 40.7 (39.0-53.0) % Coagulation 01/10/23 Range/Units 18:21 INR 1.1 (<1.2) Result Diagrams: 01/10/23 18:21 01/13/23 06:45 Assessment and Plan (1) Osteomyelitis Narrative/Plan: Discussed the findings with the patient. Due to the fact that he's had previous infections in the left fifth digit as well as positive findings for osteomyelitis, I recommended a dictation the fifth digit. Previous infections most likely vegetated on the hardware and allowed for a nidus of infection. Previous bone infections in this digit should have oriented remove the hardware. The hardware extensively the medullary canal of the proximal phalanx therefore the assumption is that the bacteria causing the osteomyelitis has spread to the entire fifth digit. By amputating the fifth digit, this removes a source of infection. Patient is agreeable with the treatment plan. Surgery time is to be determined. Current Visit: Yes Status: Acute Code(s): M86.9 - OSTEOMYELITIS, UNSPECIFIED SNOMED Code(s): 20791111 Time with Patient: Less than 30
[2023-01-14 16:36] LABS: Glucose,Whole Blood 135 mg/dL (70-110)
[2023-01-14] MEDS ORDERED: VANCOMYCIN TROUGH DUE 1 EACH MISC MISCELLANE ONE (17:00)
[2023-01-14] MEDS: VANCOMYCIN 1,500 MG in SODIUM CHLORIDE 0.9% 500 ML 500 ML IVPB SCH (18:02)
[2023-01-14] MEDS: ATORVASTATIN 10 MG TAB PO SCH (21:42)
--- NOTE | 2023-01-14 21:42 | P.PN ---
Subjective Progress Note Date: 01/14/23 Principal diagnosis: Left fifth toe wound and cellulitis Patient is a 77-year-old male with a past medical history significant for CVA TIA diabetes mellitus DVT hypertension osteoarthritis and a previous history of infection to the left lower extremity, the patient noticed to have a ulcer on the lateral aspect of his left fifth toe, abnormal x-ray concerning for possible Osteomyelitis On today's evaluation that is 01/14/2023, the patient continues to be afebrile, the patient is breathing comfortably on room air, the patient denies chest pain shortness of breath or cough, patient denies nausea no vomiting no abdominal pain no diarrhea, the patient denies pain to the left fifth toe area Objective - Vital Signs Vital signs: Vital Signs Temp 97.7 F 01/14/23 07:09 Pulse 73 01/14/23 09:27 Resp 17 01/14/23 09:27 BP 125/80 01/14/23 08:50 Pulse Ox 97 01/14/23 08:50 FiO2 Intake & Output 01/13/23 01/14/23 01/14/23 18:59 06:59 18:59 Output Total 250 Balance -250 Output: Urine 250 Other: Voiding Method Urinal Urinal Urinal # Voids 6 # Bowel Movements 1 - Exam GENERAL DESCRIPTION: An elderly male lying in bed in no distress RESPIRATORY SYSTEM: Unlabored breathing , decreased breath sounds at bases HEART: S1 S2 regular rate and rhythm , ABDOMEN: Soft , no tenderness EXTREMITIES: Left foot is currently dressed - Labs CBC & Chem 7: 01/10/23 18:21 01/14/23 16:50 Labs: Abnormal Lab Results - Last 24 Hours (Table) 01/13/23 01/13/23 01/14/23 Range/Units 17:05 21:22 11:00 POC Glucose (mg/dL) 131 H 255 H 167 H (70-110) mg/dL Microbiology - Last 24 Hours (Table) 01/11/23 12:50 Gram Stain - Final Toe - Left Fifth Wound Culture - Final Methicillin resist S. aureus Assessment and Plan (1) Ulcer of left foot due to type 2 diabetes mellitus Current Visit: Yes Status: Acute Code(s): E11.621 - TYPE 2 DIABETES MELLITUS WITH FOOT ULCER; L97.529 - NON-PRESSURE CHRONIC ULCER OTH PRT LEFT FOOT W UNSP SEVERITY SNOMED Code(s): 77735815965477270 Plan: 1patient with a left fifth toe nonhealing wound and cellulitis likely from gram-positive skin rogelio patient did have a history of hardware to the toe to keep them straight concerning for possible osteomyelitis as there was some cortical erosion and possible infection of the hardware with a previous history of MRSA infection likely infecting pathogen 2-local wound culture growing presumptive MRSA 3-patient to continue with vancomycin , keeping in mind abnormal x-ray especially with the hardware patient will benefit from foot and ankle ortho pedics evaluation for possible removal of hardware versus amputation as the patient bone scan is suggestive of osteomyelitis Time with Patient: Less than 30
[2023-01-14] MEDS: SODIUM CHLORIDE 0.9% 1,000 ML IV SCH (21:50)
[2023-01-14 21:58] LABS: Glucose,Whole Blood 143 mg/dL (70-110)
[2023-01-15 06:19] LABS: Glucose,Whole Blood 92 mg/dL (70-110)
[2023-01-15] MEDS: INSULIN ASPART (NovoLOG) 100 UNIT/ML VIAL SQ SCH ×4 (06:20→21:41)
[2023-01-15] MEDS: APIXABAN 2.5 MG TABLET PO SCH ×2 (08:12→21:38)
[2023-01-15] MEDS: GABAPENTIN 300 MG CAP PO SCH ×2 (08:12→21:38)
[2023-01-15] MEDS: TAMSULOSIN 0.4 MG CAP.ER.24H PO SCH ×2 (08:12→21:38)
[2023-01-15] MEDS: oxyCODONE-APAP 7.5-325MG 1 EACH TAB PO PRN ×2 (08:12→19:32)
[2023-01-15] MEDS: METOPROLOL TARTRATE 50 MG TAB PO SCH ×2 (08:12→19:32)
[2023-01-15 11:01] LABS: African American GFR (CKD) 49.4 (60.0-200.0); Anion Gap 8.6 mmol/L (10.00-18.00); BUN/Creat Ratio 16.6 Ratio (12.00-20.00); Blood Urea Nitrogen 25.4 mg/dL (9.0-27.0); Calcium 8.3 mg/dL (8.7-10.3); Carbon Dioxide 23.1 mmol/L (20.0-27.5); Non-African American GFR(CKD) 42.6 (60.0-200.0)
[2023-01-15 11:18] LABS: Glucose,Whole Blood 178 mg/dL (70-110)
--- NOTE | 2023-01-15 12:08 | P.PN ---
Subjective Progress Note Date: 01/15/23 Hospital Course: Patient is a 77-year-old male with PMH of diabetes mellitus, CKD stage III, hypertension, history of DVT, history of TIA presenting to the ED for ulceration over the right fifth digit. He has a history of MRSA. In the ED, his vital signs are stable. CBC showed leukocytosis of 11.1. ESR was 31. Coagulation panel within normal limits. CMP showed bicarb of 32, BUN of 32, creatinine 1.83, glucose 141. CRP was 3.3. Foot x-ray showed findings suspicious for osteomyelitis. ID consulted, patient started on vancomycin, bone scan shows osteomyelitis. Patient pending surgery on Friday. Subjective: Patient seen and examined at bedside. No acute events overnight. Denies any chest pain, respiratory complaints, abdominal complaints, urinary or bowel complaints. Continues to have left foot pain. Pertinent positives and negatives as discussed above, a complete review of systems was performed and all other systems are negative. Vitals Signs Reviewed. General: nontoxic, no distress, appears at stated age Derm: warm, dry, left foot not examined, dressing in place Head: atraumatic, normocephalic, symmetric Eyes: EOMI, no lid lag, anicteric sclera Mouth: no lip lesion, mucus membranes moist Cardiovascular: S1S2 reg, no murmur Lungs: CTA bilateral, no rhonchi, no rales , no accessory muscle use Abdominal: soft, nontender to palpation, no guarding, no appreciable organomegaly Ext: no gross muscle atrophy, no edema, no contractures Neuro: CN II-XI grossly intact, no focal neuro deficits Psych: Alert, oriented, appropriate affect Data Reviewed Today: Pertinent Labs: Sodium 139, potassium 5.0, creatinine 1.5, glucose 92-143 Wound cultures positive for MRSA Bone scan report reviewed, shows acute osteomyelitis Assessment and Plan: Active: Acute Osteomyelitis Leukocytosis Diabetes mellitus Hypertensive urgency -Continue IV vancomycin, dosing based on trough levels, monitor for renal toxicity, daily BMP -ID consulted, bone scan consistent with osteomyelitis -Pain control with IV morphine as needed, oral Percocet as needed -Surgery following, likely surgery on Friday -Sliding scale insulin, no changes today -Clonidine 0.2 mg 3 times a day as needed, blood pressure not well controlled -Added amlodipine 5 mg daily Resolved: Metabolic alkalosis Chronic: Chronic kidney disease History Hypertension History of DVT History of TIA DVT ppx: Eliquis Code status: Full code Anticipated discharge place: Pending clinical course Anticipated discharge time: Pending clinical course Objective - Vital Signs Vital signs: Vital Signs Temp 97.4 F L 01/15/23 07:12 Pulse 60 01/15/23 07:12 Resp 17 01/15/23 07:12 BP 164/77 01/15/23 07:12 Pulse Ox 95 01/15/23 07:12 FiO2 Intake & Output 01/14/23 01/15/23 01/15/23 18:59 06:59 18:59 Output Total 1150 1999 Balance -1149 -1999 Weight 83.007 kg Output: Urine 1150 1999 Other: Voiding Method Urinal Urinal # Voids 5 # Bowel Movements 1 - Labs CBC & Chem 7: 01/10/23 18:21 01/15/23 06:46 Labs: Abnormal Lab Results - Last 24 Hours (Table) 01/14/23 01/14/23 01/14/23 Range/Units 16:35 16:50 21:57 Anion Gap (10.00-18.00) mmol/L Creatinine 1.43 H (0.66-1.25) mg/dL Est GFR (CKD-EPI)AfAm (60.0-200.0) Est GFR (CKD-EPI)NonAf (60.0-200.0) POC Glucose (mg/dL) 135 H 143 H (70-110) mg/dL Calcium (8.7-10.3) mg/dL 01/15/23 01/15/23 Range/Units 06:46 11:16 Anion Gap 8.60 L (10.00-18.00) mmol/L Creatinine (0.66-1.25) mg/dL Est GFR (CKD-EPI)AfAm 49.4 L (60.0-200.0) Est GFR (CKD-EPI)NonAf 42.6 L (60.0-200.0) POC Glucose (mg/dL) 178 H (70-110) mg/dL Calcium 8.3 L (8.7-10.3) mg/dL Microbiology - Last 24 Hours (Table) 01/11/23 12:50 Gram Stain - Final Toe - Left Fifth Wound Culture - Final Methicillin resist S. aureus
[2023-01-15] MEDS: amLODIPine 5 MG TAB PO SCH (12:19)
--- NOTE | 2023-01-15 14:58 | P.PN ---
Subjective Progress Note Date: 01/15/23 Principal diagnosis: Left fifth toe wound and cellulitis Patient is a 77-year-old male with a past medical history significant for CVA TIA diabetes mellitus DVT hypertension osteoarthritis and a previous history of infection to the left lower extremity, the patient noticed to have a ulcer on the lateral aspect of his left fifth toe, abnormal x-ray concerning for possible Osteomyelitis On today's evaluation that is 01/15/2023, the patient remains to be afebrile, the patient is breathing comfortably on room air, the patient denies chest pain shortness of breath or cough, patient denies nausea no vomiting no abdominal pain no diarrhea, the patient denies pain to the left fifth toe area, no new symptom has been complaining of being poked for IV Objective - Vital Signs Vital signs: Vital Signs Temp 98.4 F 01/15/23 14:00 Pulse 67 01/15/23 14:00 Resp 17 01/15/23 14:00 BP 170/74 01/15/23 14:00 Pulse Ox 95 01/15/23 14:00 FiO2 Intake & Output 01/14/23 01/15/23 01/15/23 18:59 06:59 18:59 Output Total 1150 2000 Balance -1150 -1999 Weight 83.007 kg Output: Urine 1150 2000 Other: Voiding Method Urinal Urinal # Voids 5 # Bowel Movements 1 - Exam GENERAL DESCRIPTION: An elderly male lying in bed in no distress RESPIRATORY SYSTEM: Unlabored breathing , decreased breath sounds at bases HEART: S1 S2 regular rate and rhythm , ABDOMEN: Soft , no tenderness EXTREMITIES: Left foot is currently dressed - Labs CBC & Chem 7: 01/10/23 18:21 01/15/23 06:46 Labs: Abnormal Lab Results - Last 24 Hours (Table) 01/14/23 01/14/23 01/14/23 Range/Units 16:35 16:50 21:57 Anion Gap (10.00-18.00) mmol/L Creatinine 1.43 H (0.66-1.25) mg/dL Est GFR (CKD-EPI)AfAm (60.0-200.0) Est GFR (CKD-EPI)NonAf (60.0-200.0) POC Glucose (mg/dL) 135 H 143 H (70-110) mg/dL Calcium (8.7-10.3) mg/dL 01/15/23 01/15/23 Range/Units 06:46 11:16 Anion Gap 8.60 L (10.00-18.00) mmol/L Creatinine (0.66-1.25) mg/dL Est GFR (CKD-EPI)AfAm 49.4 L (60.0-200.0) Est GFR (CKD-EPI)NonAf 42.6 L (60.0-200.0) POC Glucose (mg/dL) 178 H (70-110) mg/dL Calcium 8.3 L (8.7-10.3) mg/dL Assessment and Plan (1) Ulcer of left foot due to type 2 diabetes mellitus Current Visit: Yes Status: Acute Code(s): E11.621 - TYPE 2 DIABETES MELLITUS WITH FOOT ULCER; L97.529 - NON-PRESSURE CHRONIC ULCER OTH PRT LEFT FOOT W UNSP SEVERITY SNOMED Code(s): 72723085605748692 Plan: 1patient with a left fifth toe nonhealing wound and cellulitis likely from gram-positive skin rogelio patient did have a history of hardware to the toe to keep them straight concerning for possible osteomyelitis as there was some cortical erosion and possible infection of the hardware with a previous history of MRSA infection likely infecting pathogen 2-local wound culture growing presumptive MRSA 3-patient to continue with vancomycin , keeping in mind abnormal x-ray especially with the hardware patient has been evaluated by foot and ankle surgery and is recommending amputation of the left fifth toe scheduled for this Friday as the infected part will be removed the patient will likely not need any IV antibiotic on discharge Time with Patient: Less than 30
[2023-01-15 17:02] LABS: Glucose,Whole Blood 114 mg/dL (70-110)
[2023-01-15] MEDS: VANCOMYCIN 1,250 MG in SODIUM CHLORIDE 0.9% 250 ML IVPB SCH (17:17)
[2023-01-15] MEDS: SODIUM CHLORIDE 0.9% 1,000 ML IV SCH (20:58)
[2023-01-15 21:00] LABS: Glucose,Whole Blood 179 mg/dL (70-110)
[2023-01-15] MEDS: ATORVASTATIN 10 MG TAB PO SCH (21:38)
[2023-01-16 06:04] LABS: Glucose,Whole Blood 90 mg/dL (70-110)
[2023-01-16] MEDS: INSULIN ASPART (NovoLOG) 100 UNIT/ML VIAL SQ SCH ×4 (06:07→20:43)
[2023-01-16] MEDS: APIXABAN 2.5 MG TABLET PO SCH ×2 (08:18→20:49)
[2023-01-16] MEDS: TAMSULOSIN 0.4 MG CAP.ER.24H PO SCH ×2 (08:18→20:49)
[2023-01-16] MEDS: amLODIPine 5 MG TAB PO SCH (08:18)
[2023-01-16] MEDS: GABAPENTIN 300 MG CAP PO SCH ×2 (08:18→20:49)
[2023-01-16] MEDS: METOPROLOL TARTRATE 50 MG TAB PO SCH ×2 (08:18→20:48)
[2023-01-16] MEDS: oxyCODONE-APAP 7.5-325MG 1 EACH TAB PO PRN ×2 (08:19→20:48)
[2023-01-16 11:07] LABS: Glucose,Whole Blood 145 mg/dL (70-110)
[2023-01-16] MEDS ORDERED: amLODIPine 5 MG TAB PO STA (12:03)
--- NOTE | 2023-01-16 12:04 | P.PN ---
Subjective Progress Note Date: 01/16/23 Hospital Course: Patient is a 77-year-old male with PMH of diabetes mellitus, CKD stage III, hypertension, history of DVT, history of TIA presenting to the ED for ulceration over the right fifth digit. He has a history of MRSA. In the ED, his vital signs are stable. CBC showed leukocytosis of 11.1. ESR was 31. Coagulation panel within normal limits. CMP showed bicarb of 32, BUN of 32, creatinine 1.83, glucose 141. CRP was 3.3. Foot x-ray showed findings suspicious for osteomyelitis. ID consulted, patient started on vancomycin, bone scan shows osteomyelitis. Patient pending surgery on Friday. Subjective: Patient seen and examined at bedside. No acute events overnight. Denies any chest pain, respiratory complaints, abdominal complaints, urinary or bowel complaints. Continues to have left foot pain. Pertinent positives and negatives as discussed above, a complete review of systems was performed and all other systems are negative. Vitals Signs Reviewed. General: nontoxic, no distress, appears at stated age Derm: warm, dry, left foot not examined, dressing in place Head: atraumatic, normocephalic, symmetric Eyes: EOMI, no lid lag, anicteric sclera Mouth: no lip lesion, mucus membranes moist Cardiovascular: S1S2 reg, no murmur Lungs: CTA bilateral, no rhonchi, no rales , no accessory muscle use Abdominal: soft, nontender to palpation, no guarding, no appreciable organomegaly Ext: no gross muscle atrophy, no edema, no contractures Neuro: CN II-XI grossly intact, no focal neuro deficits Psych: Alert, oriented, appropriate affect Data Reviewed Today: Pertinent Labs: Creatinine 1.28, glucose range between 90-179 Assessment and Plan: Active: Acute Osteomyelitis Leukocytosis Diabetes mellitus Hypertensive urgency -Continue IV vancomycin, dosing based on trough levels, monitor for renal toxicity, daily BMP -ID following, bone scan consistent with osteomyelitis, pending surgery on Friday -Pain control with IV morphine as needed, oral Percocet as needed -Surgery following, likely surgery on Friday -Sliding scale insulin, no changes today -Clonidine 0.2 mg 3 times a day as needed, blood pressure not well controlled -Amlodipine increased to 10 mg daily Resolved: Metabolic alkalosis Chronic: Chronic kidney disease History Hypertension History of DVT History of TIA DVT ppx: Eliquis Code status: Full code Anticipated discharge place: Pending clinical course Anticipated discharge time: Pending clinical course Objective - Vital Signs Vital signs: Vital Signs Temp 98.3 F 01/16/23 07:30 Pulse 67 01/16/23 07:30 Resp 19 01/16/23 07:30 BP 166/76 01/16/23 07:30 Pulse Ox 95 01/16/23 07:30 FiO2 Intake & Output 01/15/23 01/16/23 01/16/23 18:59 06:59 18:59 Output Total 1200 Balance -1200 Weight 83.007 kg Output: Urine 1200 Other: Voiding Method Urinal # Voids 1 - Labs CBC & Chem 7: 01/10/23 18:21 01/16/23 06:11 Labs: Abnormal Lab Results - Last 24 Hours (Table) 01/15/23 01/15/23 01/16/23 Range/Units 17:01 20:56 06:11 Creatinine 1.28 H (0.66-1.25) mg/dL POC Glucose (mg/dL) 114 H 179 H (70-110) mg/dL 01/16/23 Range/Units 11:06 Creatinine (0.66-1.25) mg/dL POC Glucose (mg/dL) 145 H (70-110) mg/dL
--- NOTE | 2023-01-16 15:33 | P.PN ---
Subjective Progress Note Date: 01/16/23 Principal diagnosis: Left fifth toe wound and cellulitis Patient is a 77-year-old male with a past medical history significant for CVA TIA diabetes mellitus DVT hypertension osteoarthritis and a previous history of infection to the left lower extremity, the patient noticed to have a ulcer on the lateral aspect of his left fifth toe, abnormal x-ray concerning for possible Osteomyelitis On today's evaluation that is 01/16/2023, the patient continues to be afebrile, the patient is breathing comfortably on room air, the patient denies chest pain shortness of breath or cough, patient denies nausea no vomiting no abdominal pain no diarrhea, the patient denies pain to the left fifth toe area, Objective - Vital Signs Vital signs: Vital Signs Temp 98.5 F 01/16/23 12:08 Pulse 69 01/16/23 12:08 Resp 16 01/16/23 12:08 BP 107/64 01/16/23 12:08 Pulse Ox 95 01/16/23 12:08 FiO2 Intake & Output 01/15/23 01/16/23 01/16/23 18:59 06:59 18:59 Output Total 1200 Balance -1200 Weight 83.007 kg Output: Urine 1200 Other: Voiding Method Urinal # Voids 1 - Exam GENERAL DESCRIPTION: An elderly male lying in bed in no distress RESPIRATORY SYSTEM: Unlabored breathing , decreased breath sounds at bases HEART: S1 S2 regular rate and rhythm , ABDOMEN: Soft , no tenderness EXTREMITIES: Left foot is currently dressed - Labs CBC & Chem 7: 01/10/23 18:21 01/16/23 06:11 Labs: Abnormal Lab Results - Last 24 Hours (Table) 01/15/23 01/15/23 01/16/23 Range/Units 17:01 20:56 06:11 Creatinine 1.28 H (0.66-1.25) mg/dL POC Glucose (mg/dL) 114 H 179 H (70-110) mg/dL 01/16/23 Range/Units 11:06 Creatinine (0.66-1.25) mg/dL POC Glucose (mg/dL) 145 H (70-110) mg/dL Assessment and Plan (1) Ulcer of left foot due to type 2 diabetes mellitus Current Visit: Yes Status: Acute Code(s): E11.621 - TYPE 2 DIABETES MELLITUS WITH FOOT ULCER; L97.529 - NON-PRESSURE CHRONIC ULCER OTH PRT LEFT FOOT W UNSP SEVERITY SNOMED Code(s): [id number] Plan: 1patient with a left fifth toe nonhealing wound and cellulitis likely from gram-positive skin rogelio patient did have a history of hardware to the toe to keep them straight concerning for possible osteomyelitis as there was some cortical erosion and possible infection of the hardware with a previous history of MRSA infection likely infecting pathogen 2-local wound culture growing presumptive MRSA 3-patient is scheduled for left fifth amputation tomorrow, we will continue vancomycin perioperatively and monitor clinical course closely Time with Patient: Less than 30
[2023-01-16 16:49] LABS: Glucose,Whole Blood 192 mg/dL (70-110)
[2023-01-16] MEDS: VANCOMYCIN 1,250 MG in SODIUM CHLORIDE 0.9% 250 ML IVPB SCH (17:06)
[2023-01-16 20:44] LABS: Glucose,Whole Blood 143 mg/dL (70-110)
[2023-01-16] MEDS: ATORVASTATIN 10 MG TAB PO SCH (20:49)
[2023-01-16] MEDS: SODIUM CHLORIDE 0.9% 1,000 ML IV SCH (20:49)
[2023-01-17] MEDS: INSULIN ASPART (NovoLOG) 100 UNIT/ML VIAL SQ SCH ×4 (06:24→20:46)
[2023-01-17] MEDS: oxyCODONE-APAP 7.5-325MG 1 EACH TAB PO PRN ×3 (06:53→20:47)
[2023-01-17 06:57] LABS: Glucose,Whole Blood 85 mg/dL (70-110)
[2023-01-17] MEDS: APIXABAN 2.5 MG TABLET PO SCH ×2 (07:57→20:47)
[2023-01-17] MEDS: GABAPENTIN 300 MG CAP PO SCH ×2 (08:02→20:47)
[2023-01-17] MEDS: METOPROLOL TARTRATE 50 MG TAB PO SCH ×2 (08:02→20:47)
[2023-01-17] MEDS: amLODIPine 10 MG TAB PO SCH (08:03)
[2023-01-17] MEDS: TAMSULOSIN 0.4 MG CAP.ER.24H PO SCH ×2 (08:03→20:48)
[2023-01-17] MEDS ORDERED: IV FLUID CONTINUATION 1,000 ML IV ONE (10:30)
[2023-01-17 10:38] LABS: Glucose,Whole Blood 100 mg/dL (70-110)
[2023-01-17] MEDS ORDERED: ONDANSETRON 4 MG/2 ML VIAL ONE (10:46)
[2023-01-17] MEDS ORDERED: ONDANSETRON 4 MG/2 ML VIAL IVP ONE (10:48)
--- NOTE | 2023-01-17 11:14 | P.PN ---
Subjective Progress Note Date: 01/17/23 Hospital Course: Patient is a 77-year-old male with PMH of diabetes mellitus, CKD stage III, hypertension, history of DVT, history of TIA presenting to the ED for ulceration over the right fifth digit. He has a history of MRSA. In the ED, his vital signs are stable. CBC showed leukocytosis of 11.1. ESR was 31. Coagulation panel within normal limits. CMP showed bicarb of 32, BUN of 32, creatinine 1.83, glucose 141. CRP was 3.3. Foot x-ray showed findings suspicious for osteomyelitis. ID consulted, patient started on vancomycin, bone scan shows osteomyelitis. Patient pending surgery today Subjective: Patient seen and examined at bedside. No acute events overnight. Denies any chest pain, respiratory complaints, abdominal complaints, urinary or bowel complaints. Continues to have minimal left foot pain. Pertinent positives and negatives as discussed above, a complete review of systems was performed and all other systems are negative. Vitals Signs Reviewed. General: nontoxic, no distress, appears at stated age Derm: warm, dry, left foot not examined, dressing in place Head: atraumatic, normocephalic, symmetric Eyes: EOMI, no lid lag, anicteric sclera Mouth: no lip lesion, mucus membranes moist Cardiovascular: S1S2 reg, no murmur Lungs: CTA bilateral, no rhonchi, no rales , no accessory muscle use Abdominal: soft, nontender to palpation, no guarding, no appreciable organomegaly Ext: no gross muscle atrophy, no edema, no contractures Neuro: CN II-XI grossly intact, no focal neuro deficits Psych: Alert, oriented, appropriate affect Data Reviewed Today: Pertinent Labs: Creatinine 1.49, blood sugars range between 85-192 Assessment and Plan: Active: Acute Osteomyelitis Leukocytosis Diabetes mellitus Hypertensive urgency -Continue IV vancomycin, dosing based on trough levels, monitor for renal toxicity, daily creatinine -ID following, bone scan consistent with osteomyelitis, pending surgery today -Pain control with IV morphine as needed, oral Percocet as needed -Surgery following, surgery today -Sliding scale insulin, no changes today -Clonidine 0.2 mg 3 times a day as needed, blood pressure now better -Continue Amlodipine 10 mg daily Resolved: Metabolic alkalosis Chronic: Chronic kidney disease History Hypertension History of DVT History of TIA DVT ppx: Eliquis Code status: Full code Anticipated discharge place: Back to nursing facility Anticipated discharge time: Possibly tomorrow Objective - Vital Signs Vital signs: Vital Signs Temp 98.1 F 01/17/23 10:41 Pulse 67 01/17/23 10:41 Resp 18 01/17/23 10:41 BP 194/84 01/17/23 10:41 Pulse Ox 98 01/17/23 10:41 FiO2 Intake & Output 01/16/23 01/17/23 01/17/23 18:59 06:59 18:59 Intake Total 810 Output Total 200 Balance 810 -200 Intake: Oral 810 Output: Urine 200 Other: Voiding Method Urinal # Voids 1 1 - Labs CBC & Chem 7: 01/10/23 18:21 01/17/23 07:09 Labs: Abnormal Lab Results - Last 24 Hours (Table) 01/16/23 01/16/23 01/17/23 Range/Units 16:46 20:42 07:09 Creatinine 1.49 H (0.66-1.25) mg/dL POC Glucose (mg/dL) 192 H 143 H (70-110) mg/dL Microbiology - Last 24 Hours (Table) 01/11/23 12:43 Anaerobic Culture - Final Toe - Left Fifth
[2023-01-17] MEDS ORDERED: LIDOCAINE 2% INJ 20 MG/ML (2 ML VIAL) ONE (11:30)
[2023-01-17] MEDS ORDERED: fentaNYL (PF) 50 MCG/ML 2 ML AMP ONE (11:30)
[2023-01-17] MEDS ORDERED: MIDAZOLAM 2 MG/2 ML VIAL ONE (11:30)
[2023-01-17] MEDS ORDERED: PROPOFOL 10 MG/ML 20 ML VIAL IV ONE (11:30)
[2023-01-17] MEDS ORDERED: BUPIVACAINE (PF) 0.25% 30 ML VIAL SQ ONE (11:45)
--- NOTE | 2023-01-17 12:28 | P.OP ---
Date of Procedure: 01/17/23 Preoperative Diagnosis: Osteomyelitis left fifth toe Postoperative Diagnosis: Osteomyelitis left fifth toe Procedure(s) Performed: Amputation of fifth toe at the metatarsal phalangeal joint left foot Implants: None Anesthesia: MAC Surgeon: Leon Villasenor Estimated Blood Loss (ml): 0 Pathology: other (Left fifth toe) Condition: stable Disposition: PACU Description of Procedure: The patient was brought into the operating room in his bed. Timeout was taken to confirm correct patient identifiers, correct lateral of surgery, and correct procedure. Once all staff in the room were in agreement timeout, IV sedation anesthesia was administered. Then 10 mL of 0.25% Marcaine was injected as a block proximal to the fifth digit. The left foot was then prepped and draped usual manner. The foot was exsanguinated with an Esmarch bandage and an as marked bandage was left in place at the ankle to act as a tourniquet. Then attention was directed to the fifth digit w where a "lollipop" incision was made around the fifth toe leaving adequate skin in place for closure. The incision was deepened directly down to bone, and then tissue was reflected full-thickness off the proximal phalanx of the fifth toe at the level of the metatarsal phalangeal joint. There was a pseudoarthrosis of the fifth metatarsal phalangeal joint however part of the joint could be identified. A bone cutter was used to resect through the pseudoarthrosis to allow for removal of the toe. Once that was completed the soft tissue was dissected away from the fifth digit at which point was disarticulated and removed from the surgical field. During the procedure no purulent drainage was encountered. The wound is then thoroughly irrigated with antibiotic saline. The skin was closed with 3-0 nylon. An Arthrex jumpstart dressing and a dry sterile bandage were applied to left foot. The Esmarch bandage was released and capillary refill return to the remaining digits of the left foot. The patient tolerated above procedure and anesthesia well which recovery with vital signs stable
--- NOTE | 2023-01-17 13:24 | P.PN ---
Subjective Progress Note Date: 01/17/23 Principal diagnosis: Left fifth toe wound and cellulitis Patient is a 77-year-old male with a past medical history significant for CVA TIA diabetes mellitus DVT hypertension osteoarthritis and a previous history of infection to the left lower extremity, the patient noticed to have a ulcer on the lateral aspect of his left fifth toe, abnormal x-ray concerning for possible Osteomyelitis patient is status post amputation of the left fifth toe with wound closure and no evidence of any purulence as documented by operative report on 01/17/2023 On today's evaluation that is 01/17/2023, the patient remains to be afebrile, the patient is breathing comfortably on room air, the patient denies chest pain shortness of breath or cough, patient denies nausea no vomiting no abdominal pain no diarrhea, the patient denies pain to the left fifth toe amputation site area, Objective - Vital Signs Vital signs: Vital Signs Temp 98.1 F 01/17/23 10:41 Pulse 62 01/17/23 12:17 Resp 16 01/17/23 12:17 BP 138/70 01/17/23 12:17 Pulse Ox 94 L 01/17/23 12:17 FiO2 Intake & Output 01/16/23 01/17/23 01/17/23 18:59 06:59 18:59 Intake Total 810 500 Output Total 200 Balance 810 300 Intake: IV 500 Oral 810 Output: Urine 200 Other: Voiding Method Urinal # Voids 1 1 - Exam GENERAL DESCRIPTION: An elderly male lying in bed in no distress RESPIRATORY SYSTEM: Unlabored breathing , decreased breath sounds at bases HEART: S1 S2 regular rate and rhythm , ABDOMEN: Soft , no tenderness EXTREMITIES: Left foot is currently dressed in the OR dressing - Labs CBC & Chem 7: 01/10/23 18:21 01/17/23 07:09 Labs: Abnormal Lab Results - Last 24 Hours (Table) 01/16/23 01/16/23 01/17/23 Range/Units 16:46 20:42 07:09 Creatinine 1.49 H (0.66-1.25) mg/dL POC Glucose (mg/dL) 192 H 143 H (70-110) mg/dL Microbiology - Last 24 Hours (Table) 01/11/23 12:43 Anaerobic Culture - Final Toe - Left Fifth Assessment and Plan (1) Ulcer of left foot due to type 2 diabetes mellitus Current Visit: Yes Status: Acute Code(s): E11.621 - TYPE 2 DIABETES MELLITUS WITH FOOT ULCER; L97.529 - NON-PRESSURE CHRONIC ULCER OTH PRT LEFT FOOT W UNSP SEVERITY SNOMED Code(s): 98222496272891349 Plan: 1patient with a left fifth toe nonhealing wound and cellulitis likely from gram-positive skin rogelio patient did have a history of hardware to the toe to keep them straight concerning for possible osteomyelitis as there was some cortical erosion and possible infection of the hardware with a previous history of MRSA infection likely infecting pathogen 2-local wound culture growing presumptive MRSA 3-patient is status post left fifth amputation with infected part removed the patient would not need long-term IV vancomycin therapy continue for another 24- 48 hours post surgery Time with Patient: Less than 30
[2023-01-17 16:03] LABS: Glucose,Whole Blood 278 mg/dL (70-110)
[2023-01-17] MEDS: VANCOMYCIN 1,250 MG in SODIUM CHLORIDE 0.9% 250 ML IVPB SCH (17:11)
[2023-01-17 20:31] LABS: Glucose,Whole Blood 98 mg/dL (70-110)
[2023-01-17] MEDS: ATORVASTATIN 10 MG TAB PO SCH (20:47)
[2023-01-18] MEDS: SODIUM CHLORIDE 0.9% 1,000 ML IV SCH (00:41)
[2023-01-18 06:21] LABS: Glucose,Whole Blood 94 mg/dL (70-110)
[2023-01-18] MEDS: oxyCODONE-APAP 7.5-325MG 1 EACH TAB PO PRN ×3 (06:21→20:12)
[2023-01-18] MEDS: INSULIN ASPART (NovoLOG) 100 UNIT/ML VIAL SQ SCH ×4 (09:19→20:16)
[2023-01-18] MEDS: amLODIPine 10 MG TAB PO SCH (09:20)
[2023-01-18] MEDS: GABAPENTIN 300 MG CAP PO SCH ×2 (09:20→20:12)
[2023-01-18] MEDS: METOPROLOL TARTRATE 50 MG TAB PO SCH ×2 (09:20→20:12)
[2023-01-18] MEDS: APIXABAN 2.5 MG TABLET PO SCH ×2 (09:20→20:12)
[2023-01-18] MEDS: TAMSULOSIN 0.4 MG CAP.ER.24H PO SCH ×2 (09:20→20:12)
[2023-01-18] MEDS: LACTATED RINGERS 1,000 ML IV SCH (11:21)
[2023-01-18 11:22] LABS: Glucose,Whole Blood 95 mg/dL (70-110)
--- NOTE | 2023-01-18 12:01 | P.PN ---
Subjective Progress Note Date: 01/18/23 Hospital Course: Patient is a 77-year-old male with PMH of diabetes mellitus, CKD stage III, hyp ertension, history of DVT, history of TIA presenting to the ED for ulceration over the right fifth digit. He has a history of MRSA. In the ED, his vital signs are stable. CBC showed leukocytosis of 11.1. ESR was 31. Coagulation panel within normal limits. CMP showed bicarb of 32, BUN of 32, creatinine 1.83, glucose 141. CRP was 3.3. Foot x-ray showed findings suspicious for osteomyelitis. ID consulted, patient started on vancomycin, bone scan shows osteomyelitis. S/p surgery. Pending discharge to facily. Subjective: Patient seen and examined at bedside. No acute events overnight. Denies any chest pain, respiratory complaints, abdominal complaints, urinary or bowel complaints. Pertinent positives and negatives as discussed above, a complete review of systems was performed and all other systems are negative. Vitals Signs Reviewed. General: nontoxic, no distress, appears at stated age Derm: warm, dry, left foot not examined, dressing in place Head: atraumatic, normocephalic, symmetric Eyes: EOMI, no lid lag, anicteric sclera Mouth: no lip lesion, mucus membranes moist Cardiovascular: S1S2 reg, no murmur Lungs: CTA bilateral, no rhonchi, no rales , no accessory muscle use Abdominal: soft, nontender to palpation, no guarding, no appreciable organomegaly Ext: no gross muscle atrophy, no edema, no contractures Neuro: CN II-XI grossly intact, no focal neuro deficits Psych: Alert, oriented, appropriate affect Data Reviewed Today: Pertinent Labs: Creatinine 1.33, blood sugars range between 94-278 Assessment and Plan: Active: Acute Osteomyelitis s/p surgery Leukocytosis Diabetes mellitus Hypertensive urgency -Continue IV vancomycin, dosing based on trough levels, monitor for renal toxicity, daily creatinine -ID following, likely doxycycline oral for 10 days at discharge -Pain control with IV morphine as needed, oral Percocet as needed -Surgery following -Sliding scale insulin, no changes today -Clonidine 0.2 mg 3 times a day as needed, blood pressure now better -Continue Amlodipine 10 mg daily Resolved: Metabolic alkalosis Chronic: Chronic kidney disease History Hypertension History of DVT History of TIA DVT ppx: Eliquis Code status: Full code Anticipated discharge place: Back to nursing facility Anticipated discharge time: Likely Friday Objective - Vital Signs Vital signs: Vital Signs Temp 98.6 F 01/18/23 07:05 Pulse 68 01/18/23 07:05 Resp 16 01/18/23 08:00 BP 167/90 01/18/23 07:05 Pulse Ox 95 01/18/23 07:05 FiO2 Intake & Output 01/17/23 01/18/23 01/18/23 18:59 06:59 18:59 Intake Total 600 730 Output Total 600 250 800 Balance 0 480 -800 Intake: IV 600 Intake, IV Titration 250 Amount Vancomycin 1,250 mg In 250 Sodium Chloride 0.9% 250 ml @ 125 mls/hr IVPB Q24H [facility] Rx#:[id number] Oral 480 Output: Urine 600 250 800 Other: Voiding Method Toilet Toilet # Voids 1 1 - Labs CBC & Chem 7: 01/10/23 18:21 01/18/23 06:28 Labs: Abnormal Lab Results - Last 24 Hours (Table) 01/17/23 01/18/23 Range/Units 16:02 06:28 Creatinine 1.33 H (0.66-1.25) mg/dL POC Glucose (mg/dL) 278 H (70-110) mg/dL
[2023-01-18 16:23] LABS: Glucose,Whole Blood 150 mg/dL (70-110)
[2023-01-18] MEDS: VANCOMYCIN 1,250 MG in SODIUM CHLORIDE 0.9% 250 ML IVPB SCH (16:56)
[2023-01-18] MEDS ORDERED: VANCOMYCIN TROUGH DUE 1 EACH MISC MISCELLANE ONE (17:00)
[2023-01-18 20:12] LABS: Glucose,Whole Blood 177 mg/dL (70-110)
[2023-01-18] MEDS: ATORVASTATIN 10 MG TAB PO SCH (20:12)
--- NOTE | 2023-01-18 22:30 | P.PN ---
Subjective Progress Note Date: 01/18/23 Principal diagnosis: Left fifth toe wound and cellulitis Patient is a 77-year-old male with a past medical history significant for CVA TIA diabetes mellitus DVT hypertension osteoarthritis and a previous history of infection to the left lower extremity, the patient noticed to have a ulcer on the lateral aspect of his left fifth toe, abnormal x-ray concerning for possible Osteomyelitis patient is status post amputation of the left fifth toe with wound closure and no evidence of any purulence as documented by operative report on 01/17/2023 On today's evaluation that is 01/18/2023, the patient continues to be afebrile, the patient is breathing comfortably on room air, the patient denies chest pain shortness of breath or cough, patient denies nausea no vomiting no abdominal pain no diarrhea, no new symptoms feeling better Objective - Vital Signs Vital signs: Vital Signs Temp 98.6 F 01/18/23 07:05 Pulse 68 01/18/23 07:05 Resp 16 01/18/23 07:05 BP 167/90 01/18/23 07:05 Pulse Ox 95 01/18/23 07:05 FiO2 Intake & Output 01/17/23 01/18/23 01/18/23 18:59 06:59 18:59 Intake Total 600 730 Output Total 600 250 800 Balance 0 480 -800 Intake: IV 600 Intake, IV Titration 250 Amount Vancomycin 1,250 mg In 250 Sodium Chloride 0.9% 250 ml @ 125 mls/hr IVPB Q24H [facility] Rx#:[id number] Oral 480 Output: Urine 600 250 800 Other: Voiding Method Toilet # Voids 1 1 - Exam GENERAL DESCRIPTION: An elderly male lying in bed in no distress RESPIRATORY SYSTEM: Unlabored breathing , decreased breath sounds at bases HEART: S1 S2 regular rate and rhythm , ABDOMEN: Soft , no tenderness EXTREMITIES: Left foot/fifth toe amputation site is currently dressed in the OR dressing Exam completed with the help of [employer] INS[employer]OR - Labs CBC & Chem 7: 01/10/23 18:21 01/18/23 06:28 Labs: Abnormal Lab Results - Last 24 Hours (Table) 01/17/23 01/18/23 Range/Units 16:02 06:28 Creatinine 1.33 H (0.66-1.25) mg/dL POC Glucose (mg/dL) 278 H (70-110) mg/dL Assessment and Plan (1) Ulcer of left foot due to type 2 diabetes mellitus Current Visit: Yes Status: Acute Code(s): E11.621 - TYPE 2 DIABETES MELLITUS WITH FOOT ULCER; L97.529 - NON-PRESSURE CHRONIC ULCER OTH PRT LEFT FOOT W UNSP SEVERITY SNOMED Code(s): 81528225361377757 Plan: 1patient with a left fifth toe nonhealing wound and cellulitis likely from g beba-positive skin rogelio patient did have a history of hardware to the toe to keep them straight concerning for possible osteomyelitis as there was some cortical erosion and possible infection of the hardware with a previous history of MRSA infection likely infecting pathogen 2-local wound culture growing presumptive MRSA 3-patient is status post left fifth amputation with infected part removed the patient to continue vancomycin while inpatient however he will be able to finish therapy with oral doxycycline 7-10 days discussed with the admitting team working on discharge Time with Patient: Less than 30
[2023-01-19 06:04] LABS: Glucose,Whole Blood 105 mg/dL (70-110)
[2023-01-19] MEDS: INSULIN ASPART (NovoLOG) 100 UNIT/ML VIAL SQ SCH ×4 (06:14→22:27)
[2023-01-19] MEDS: SODIUM CHLORIDE 0.9% 1,000 ML IV SCH ×2 (08:53→19:56)
[2023-01-19] MEDS: APIXABAN 2.5 MG TABLET PO SCH ×2 (08:55→20:04)
[2023-01-19] MEDS: TAMSULOSIN 0.4 MG CAP.ER.24H PO SCH ×2 (08:55→20:04)
[2023-01-19] MEDS: GABAPENTIN 300 MG CAP PO SCH ×2 (08:55→20:04)
[2023-01-19] MEDS: METOPROLOL TARTRATE 50 MG TAB PO SCH ×2 (08:55→20:04)
[2023-01-19] MEDS: amLODIPine 10 MG TAB PO SCH (08:55)
[2023-01-19] MEDS: oxyCODONE-APAP 7.5-325MG 1 EACH TAB PO PRN ×2 (09:06→20:04)
--- NOTE | 2023-01-19 11:13 | P.PN ---
Subjective Progress Note Date: 01/19/23 Hospital Course: Patient is a 77-year-old male with PMH of diabetes mellitus, CKD stage III, hypertension, history of DVT, history of TIA presenting to the ED for ulceration over the right fifth digit. He has a history of MRSA. In the ED, his vital signs are stable. CBC showed leukocytosis of 11.1. ESR was 31. Coagulation panel within normal limits. CMP showed bicarb of 32, BUN of 32, creatinine 1.83, glucose 141. CRP was 3.3. Foot x-ray showed findings suspicious for osteomyelitis. ID consulted, patient started on vancomycin, bone scan shows osteomyelitis. S/p surgery. Pending discharge to facility. Subjective: Patient seen and examined at bedside. No acute events overnight. Denies any chest pain, respiratory complaints, abdominal complaints, urinary or bowel co mplaints. Pertinent positives and negatives as discussed above, a complete review of systems was performed and all other systems are negative. Vitals Signs Reviewed. General: nontoxic, no distress, appears at stated age Derm: warm, dry, left foot not examined, dressing in place Head: atraumatic, normocephalic, symmetric Eyes: EOMI, no lid lag, anicteric sclera Mouth: no lip lesion, mucus membranes moist Cardiovascular: S1S2 reg, no murmur Lungs: CTA bilateral, no rhonchi, no rales , no accessory muscle use Abdominal: soft, nontender to palpation, no guarding, no appreciable organomegaly Ext: no gross muscle atrophy, no edema, no contractures Neuro: CN II-XI grossly intact, no focal neuro deficits Psych: Alert, oriented, appropriate affect Data Reviewed Today: Pertinent Labs: Creatinine 1.61, blood sugars range between 105-177 Assessment and Plan: Active: Acute Osteomyelitis s/p surgery Leukocytosis Diabetes mellitus Hypertensive urgency -Continue IV vancomycin, dosing based on trough levels, monitor for renal toxicity, daily creatinine -ID following, likely doxycycline oral for 10 days at discharge -Pain control with IV morphine as needed, oral Percocet as needed -Surgery following -Sliding scale insulin, no changes today -Blood pressure may also be elevated secondary to pain -Clonidine 0.2 mg 3 times a day as needed, blood pressure now better -Continue Amlodipine 10 mg daily Resolved: Metabolic alkalosis Chronic: Chronic kidney disease History Hypertension History of DVT History of TIA DVT ppx: Eliquis Code status: Full code Anticipated discharge place: Back to nursing facility Anticipated discharge time: Likely Friday Objective - Vital Signs Vital signs: Vital Signs Temp 98.4 F 01/19/23 07:44 Pulse 75 01/19/23 07:44 Resp 16 01/19/23 07:44 BP 165/75 01/19/23 07:44 Pulse Ox 92 L 01/19/23 07:44 FiO2 Intake & Output 01/18/23 01/19/23 01/19/23 18:59 06:59 18:59 Output Total 1900 800 Balance -1900 -800 Output: Urine 1900 800 Other: Voiding Method External Catheter External Catheter - Labs CBC & Chem 7: 01/10/23 18:21 01/19/23 05:57 Labs: Abnormal Lab Results - Last 24 Hours (Table) 01/18/23 01/18/23 01/19/23 Range/Units 16:22 20:10 05:57 Creatinine 1.61 H (0.66-1.25) mg/dL POC Glucose (mg/dL) 150 H 177 H (70-110) mg/dL
[2023-01-19 11:26] LABS: Glucose,Whole Blood 134 mg/dL (70-110)
--- NOTE | 2023-01-19 11:38 | P.DS ---
Providers Date of admission: 01/10/23 19:51 Expected date of discharge: 01/19/23 Attending physician: Andrea Carrington MD Consults: 01/10/23 19:50 Consult Physician Routine Consulting Provider: Pablito Lynne Consult Reason/Comments: osteomyelitis Do you want consulting provider notified?: Yes 01/13/23 13:29 Consult Physician Routine Consulting Provider: Leon Villasenor Consult Reason/Comments: OM L foot Do you want consulting provider notified?: Yes Primary care physician: Zeeshan William MD Hospital Course: Discharge Diagnosis: Acute Osteomyelitis s/p surgery Leukocytosis Diabetes mellitus Hypertensive urgency Metabolic alkalosis Chronic kidney disease History Hypertension History of DVT History of TIA Hospital Course: Patient is a 77-year-old male with PMH of diabetes mellitus, CKD stage III, hypertension, history of DVT, history of TIA presenting to the ED for ulceration over the right fifth digit. He has a history of MRSA. In the ED, his vital signs are stable. CBC showed leukocytosis of 11.1. ESR was 31. Coagulation panel within normal limits. CMP showed bicarb of 32, BUN of 32, creatinine 1.83, glucose 141. CRP was 3.3. Foot x-ray showed findings suspicious for osteomyelitis. ID consulted, patient started on vancomycin, bone scan shows osteomyelitis. S/p surgery. Vancomycin was discontinued at discharge. Patient to be discharged on doxycycline 100 mg twice a day for 10 days. For his hypertension, amlodipine 10 mg daily was started. Patient seen and examined at bedside. Vital signs reviewed and stable. General: nontoxic, no distress, appears at stated age Derm: warm, dry, left foot dressing in place Head: atraumatic, normocephalic, symmetric Eyes: EOMI, no lid lag, anicteric sclera Mouth: no lip lesion, mucus membranes moist Cardiovascular: S1S2 reg, no murmur Lungs: CTA bilateral, no rhonchi, no rales , no accessory muscle use Abdominal: soft, nontender to palpation, no guarding, no appreciable organomegaly Ext: no gross muscle atrophy, no edema, no contractures Neuro: CN II-XI grossly intact, no focal neuro deficits Psych: Alert, oriented, appropriate affect A total of 36 minutes of time were spent preparing this complex discharge summary. Patient was discharged on 01/19/23 at 11:35. Patient Condition at Discharge: Stable Plan - Discharge Summary Discharge Rx Participant: No New Discharge Prescriptions: New amLODIPine [Norvasc] 10 mg PO DAILY #30 tab Doxycycline [Vibramycin] 100 mg PO BID 10 Days #20 capsule Continue Atorvastatin [Lipitor] 10 mg PO HS Magnesium Oxide 400 mg PO DAILY Metoprolol Tartrate [Lopressor] 50 mg PO DAILY Tamsulosin [Flomax] 0.4 mg PO BID #0 capsule L.acidoph,Paracasei, B.lactis [Probiotic] 1 cap PO DAILY Gabapentin [Neurontin] 300 mg PO BID Apixaban [Eliquis] 2.5 mg PO BID Menthol-Zinc Oxide Oint [Calmoseptine Ointment] 1 applic TOPICAL TID PRN PRN Reason: SACRUM methocarbamoL 1,000 mg PO TID Ketoconazole 2% Shampoo [Nizoral] 1 applic TOPICAL DIRECTED Sennosides [Senokot] 8.6 mg PO HS PRN PRN Reason: NO BM AFTER 48 HRS oxyCODONE-APAP 7.5-325MG [Percocet 7.5-325 mg] 1 tab PO 5XD PRN PRN Reason: Pain Neomycin/Bacitracin/Polymyxinb [Neosporin Ointment] 1 applic TOPICAL BID Multivit-Mins/Iron/Folic/Lycop [Centrum Men's Tablet] 1 tab PO DAILY Calcium Carbonate [Calcium] 600 mg PO BID Discharge Medication List Atorvastatin [Lipitor] 10 mg PO HS 10/29/18 [History] Magnesium Oxide 400 mg PO DAILY 07/07/21 [History] Metoprolol Tartrate [Lopressor] 50 mg PO DAILY 07/07/21 [History] Tamsulosin [Flomax] 0.4 mg PO BID #0 capsule 09/13/21 [Rx] Apixaban [Eliquis] 2.5 mg PO BID 11/11/22 [History] Gabapentin [Neurontin] 300 mg PO BID 11/11/22 [History] L.acidoph,Paracasei, B.lactis [Probiotic] 1 cap PO DAILY 11/11/22 [History] Menthol-Zinc Oxide Oint [Calmoseptine Ointment] 1 applic TOPICAL TID PRN 11/11/22 [History] Sennosides [Senokot] 8.6 mg PO HS PRN 11/11/22 [History] Calcium Carbonate [Calcium] 600 mg PO BID 01/10/23 [History] Ketoconazole 2% Shampoo [Nizoral] 1 applic TOPICAL DIRECTED 01/10/23 [History] Multivit-Mins/Iron/Folic/Lycop [Centrum Men's Tablet] 1 tab PO DAILY 01/10/23 [History] Neomycin/Bacitracin/Polymyxinb [Neosporin Ointment] 1 applic TOPICAL BID 01/10/23 [History] methocarbamoL 1,000 mg PO TID 01/10/23 [History] oxyCODONE-APAP 7.5-325MG [Percocet 7.5-325 mg] 1 tab PO 5XD PRN 01/10/23 [History] Doxycycline [Vibramycin] 100 mg PO BID 10 Days #20 capsule 01/19/23 [Rx] amLODIPine [Norvasc] 10 mg PO DAILY #30 tab 01/19/23 [Rx] Follow up Appointment(s)/Referral(s): Zeeshan William MD [Primary Care Provider] - 1-2 days Patient Instructions/Handouts: Osteomyelitis (DC) Activity/Diet/Wound Care/Special Instructions: *Call [facility] [phone] at discharge to arrange transport back to their program. Discharge Disposition: HOME WITH HOME HEALTH SERVICES
[2023-01-19] MEDS: AMPICILLIN-SULBACTAM 3 GM in SODIUM CHLORIDE 0.9% 100 ML IVPB SCH ×3 (12:15→23:34)
[2023-01-19] MEDS: LACTATED RINGERS 1,000 ML IV SCH (14:03)
[2023-01-19 16:31] LABS: Glucose,Whole Blood 222 mg/dL (70-110)
[2023-01-19] MEDS: ATORVASTATIN 10 MG TAB PO SCH (20:04)
--- NOTE | 2023-01-19 20:30 | P.PN ---
Subjective Progress Note Date: 01/19/23 Principal diagnosis: Left fifth toe wound and cellulitis Patient is a 77-year-old male with a past medical history significant for CVA TIA diabetes mellitus DVT hypertension osteoarthritis and a previous history of infection to the left lower extremity, the patient noticed to have a ulcer on the lateral aspect of his left fifth toe, abnormal x-ray concerning for possible Osteomyelitis patient is status post amputation of the left fifth toe with wound closure and no evidence of any purulence as documented by operative report on 01/17/2023 On today's evaluation that is 01/19/2023, the patient remains to be afebrile, the patient is breathing comfortably on room air, the patient denies chest pain shortness of breath or cough, patient denies nausea no vomiting no abdominal pain no diarrhea, and denies pain to the left fifth toe amputation site Objective - Vital Signs Vital signs: Vital Signs Temp 98.4 F 01/19/23 07:44 Pulse 75 01/19/23 07:44 Resp 16 01/19/23 07:44 BP 165/75 01/19/23 07:44 Pulse Ox 92 L 01/19/23 07:44 FiO2 Intake & Output 01/18/23 01/19/23 01/19/23 18:59 06:59 18:59 Output Total 1900 800 Balance -1900 -800 Output: Urine 1900 800 Other: Voiding Method External Catheter External Catheter - Exam GENERAL DESCRIPTION: An elderly male lying in bed in no distress RESPIRATORY SYSTEM: Unlabored breathing , decreased breath sounds at bases HEART: S1 S2 regular rate and rhythm , ABDOMEN: Soft , no tenderness EXTREMITIES: Left foot/fifth toe amputation site is currently dressed in the OR dressing, no drainage Exam completed with the help of [employer]ING [employer] - Labs CBC & Chem 7: 01/10/23 18:21 01/19/23 05:57 Labs: Abnormal Lab Results - Last 24 Hours (Table) 01/18/23 01/18/23 01/19/23 Range/Units 16:22 20:10 05:57 Creatinine 1.61 H (0.66-1.25) mg/dL POC Glucose (mg/dL) 150 H 177 H (70-110) mg/dL Assessment and Plan (1) Ulcer of left foot due to type 2 diabetes mellitus Current Visit: Yes Status: Acute Code(s): E11.621 - TYPE 2 DIABETES MELLITUS WITH FOOT ULCER; L97.529 - NON-PRESSURE CHRONIC ULCER OTH PRT LEFT FOOT W UNSP SEVERITY SNOMED Code(s): 29924425293000214 Plan: 1patient with a left fifth toe nonhealing wound and cellulitis likely from gram-positive skin rogelio patient did have a history of hardware to the toe to keep them straight concerning for possible osteomyelitis as there was some cortical erosion and possible infection of the hardware with a previous history of MRSA infection likely infecting pathogen 2-local wound culture growing presumptive MRSA 3-patient is status post left fifth amputation with infected part removed the patient to continue vancomycin while inpatient plan is to finish therapy with oral doxycycline 7-10 days on discharge and close outpatient follow-up This was tele health visit Time with Patient: Less than 30
[2023-01-19 20:53] LABS: Glucose,Whole Blood 142 mg/dL (70-110)
[2023-01-20] MEDS ORDERED: VANCOMYCIN 1,500 MG in SODIUM CHLORIDE 0.9% 500 ML 500 ML IVPB SCH ×2
[2023-01-20] MEDS: AMPICILLIN-SULBACTAM 3 GM in SODIUM CHLORIDE 0.9% 100 ML IVPB SCH ×2 (05:24→10:47)
[2023-01-20] MEDS: oxyCODONE-APAP 7.5-325MG 1 EACH TAB PO PRN ×2 (05:27→10:35)
[2023-01-20 06:25] LABS: Glucose,Whole Blood 124 mg/dL (70-110)
[2023-01-20] MEDS: INSULIN ASPART (NovoLOG) 100 UNIT/ML VIAL SQ SCH ×2 (06:34→11:35)
[2023-01-20] MEDS: LACTATED RINGERS 1,000 ML IV SCH (06:34)
[2023-01-20 07:31] VITALS: BP 150/74; PULSE 76; RESP 17; TEMP 98
[2023-01-20] MEDS: GABAPENTIN 300 MG CAP PO SCH (09:04)
[2023-01-20] MEDS: APIXABAN 2.5 MG TABLET PO SCH (09:04)
[2023-01-20] MEDS: METOPROLOL TARTRATE 50 MG TAB PO SCH (09:04)
[2023-01-20] MEDS: TAMSULOSIN 0.4 MG CAP.ER.24H PO SCH (09:04)
[2023-01-20] MEDS: amLODIPine 10 MG TAB PO SCH (09:04)
[2023-01-20 11:18] LABS: Glucose,Whole Blood 138 mg/dL (70-110)
--- NOTE | 2023-01-20 11:36 | P.PN ---
Subjective Progress Note Date: 01/20/23 Principal diagnosis: Left fifth toe wound and cellulitis Patient is a 77-year-old male with a past medical history significant for CVA TIA diabetes mellitus DVT hypertension osteoarthritis and a previous history of infection to the left lower extremity, the patient noticed to have a ulcer on the lateral aspect of his left fifth toe, abnormal x-ray concerning for possible Osteomyelitis patient is status post amputation of the left fifth toe with wound closure and no evidence of any purulence as documented by operative report on 01/17/2023 On today's evaluation that is 01/20/2023, the patient continues to be afebrile, the patient is breathing comfortably on room air, the patient denies chest pain shortness of breath or cough, patient denies nausea no vomiting no abdominal pain no diarrhea, and denies pain to the left fifth toe amputation site, currently waiting for placement Objective - Vital Signs Vital signs: Vital Signs Temp 98.0 F 01/20/23 07:29 Pulse 76 01/20/23 07:29 Resp 17 01/20/23 07:29 BP 150/74 01/20/23 07:29 Pulse Ox 96 01/20/23 07:29 FiO2 Intake & Output 01/19/23 01/20/23 01/20/23 18:59 06:59 18:59 Output Total 800 200 Balance -800 -200 Output: Urine 800 200 Other: Voiding Method External Catheter External Catheter External Catheter # Bowel Movements 1 - Exam GENERAL DESCRIPTION: An elderly male lying in bed in no distress RESPIRATORY SYSTEM: Unlabored breathing , decreased breath sounds at bases HEART: S1 S2 regular rate and rhythm , ABDOMEN: Soft , no tenderness EXTREMITIES: Left foot/fifth toe amputation site incision is intact no swelling redness or any drainage - Labs CBC & Chem 7: 01/10/23 18:21 01/20/23 06:35 Labs: Abnormal Lab Results - Last 24 Hours (Table) 01/19/23 01/19/23 01/20/23 Range/Units 16:28 20:51 06:23 Creatinine (0.66-1.25) mg/dL POC Glucose (mg/dL) 222 H 142 H 124 H (70-110) mg/dL 01/20/23 01/20/23 Range/Units 06:35 11:16 Creatinine 1.42 H (0.66-1.25) mg/dL POC Glucose (mg/dL) 138 H (70-110) mg/dL Assessment and Plan (1) Ulcer of left foot due to type 2 diabetes mellitus Current Visit: Yes Status: Acute Code(s): E11.621 - TYPE 2 DIABETES MELLITUS WITH FOOT ULCER; L97.529 - NON-PRESSURE CHRONIC ULCER OTH PRT LEFT FOOT W UNSP SEVERITY SNOMED Code(s): 18205639941722498 Plan: 1patient with a left fifth toe nonhealing wound and cellulitis likely from gram-positive skin rogelio patient did have a history of hardware to the toe to keep them straight concerning for possible osteomyelitis as there was some cortical erosion and possible infection of the hardware with a previous history of MRSA infection likely infecting pathogen 2-local wound culture growing presumptive MRSA 3-patient is status post left fifth amputation with infected part removed the patient to continue vancomycin while inpatient plan is to finish therapy with oral doxycycline 7-10 days on discharge and close outpatient follow-up, questions concerned were answered in Layman terms Time with Patient: Less than 30
--- NOTE | 2023-01-20 15:38 | P.PN ---
Subjective Progress Note Date: 01/20/23 (delayed charting seen at 0930) Patient is a 77-year-old male with a past medical history diabetes mellitus type 2, CK 80 stage III, hypertension, prior DVT, prior TIA who presented to the ER for ulceration of right fifth digit. Patient was admitted and ultimately diagnosed with acute osteomyelitis and underwent a right fifth toe amputation. He was due to be discharged yesterday however discharge was held as no transportation was available. Patient seen and examined at bedside. No chest pain, no nausea, no dairrhea, feeling well and wants to go home. Vital signs reviewed General: nontoxic, no distress, appears at stated age Cardiovascular: S1S2 reg, no murmur, positive posterior tibial pulse bilateral, Lungs: Decreased bs bilateral, no rhonchi, no rales , no accessory muscle use Abdominal: soft, nontender to palpation, no guarding, no appreciable organomegaly Ext: no gross muscle atrophy, no edema, no contractures, left fifth toe without redness, warmth, well approximated. Neuro: CN II-XI grossly intact, no focal neuro deficits Psych: Alert, oriented, appropriate affect Assessment: Right fifth toe acute osteomyelitis s/p amputation Leukocytosis Diabetes mellitus Hypertensive urgency Metabolic alkalosis Chronic kidney disease History Hypertension History of DVT History of TIA Imaging: None New Data Review: Vital signs reviewed. Temperature 90.8, pulse 76, respirations 17, blood pressure 150/74, O2 sat 96% on room air Creatinine 1.4 Blood sugar 124 in a.m. fasting Plan: -For discharge summary this admission the discharge summary completed on 01/19 -Patient will be discharged home -Case was discussed with Dr. Shaver and he recommends leaving the toe covered with 4 x 4's and Kerlix. Follow-up for suture removal 10-14 days after initial surgery -Patient will [facility] with the [facility]. He will complete doxycycline 100 mg twice daily for 10 days -Case was also discussed with [facility] nurse practitioner. This dictation was prepared using [employer] voice recognition software. Though every attempt is made to correct errors during during dictation some may still exist. Objective - Vital Signs Vital signs: Vital Signs Temp 98.0 F 01/20/23 07:29 Pulse 76 01/20/23 07:29 Resp 17 01/20/23 07:29 BP 150/74 01/20/23 07:29 Pulse Ox 96 01/20/23 07:29 FiO2 Intake & Output 01/19/23 01/20/23 01/20/23 18:59 06:59 18:59 Output Total 800 200 Balance -800 -200 Output: Urine 800 200 Other: Voiding Method External Catheter External Catheter External Catheter # Bowel Movements 1 - Labs CBC & Chem 7: 01/10/23 18:21 01/20/23 06:35 Labs: Abnormal Lab Results - Last 24 Hours (Table) 01/19/23 01/19/23 01/20/23 Range/Units 16:28 20:51 06:23 Creatinine (0.66-1.25) mg/dL POC Glucose (mg/dL) 222 H 142 H 124 H (70-110) mg/dL 01/20/23 01/20/23 Range/Units 06:35 11:16 Creatinine 1.42 H (0.66-1.25) mg/dL POC Glucose (mg/dL) 138 H (70-110) mg/dL
== END 2023-01-20 12:46 | disposition home or self-care (01) | DRG 617 ==
LOC: EC 15:25 → 4SSUR 19:51
PROVIDERS: ADMIT Internal Medicine; ATTEND Internal Medicine
PROC: 0Y6Y0Z0 Detachment at Left 5th Toe, Complete, Open Approach (ICD-10-PCS; principal; 2023-01-17 11:30)
DX: E11.69 Type 2 diabetes mellitus with other specified complication (principal); E87.3 Alkalosis; M86.172 Other acute osteomyelitis, left ankle and foot; Z79.4 Long term (current) use of insulin; E11.22 Type 2 diabetes mellitus with diabetic chronic kidney disease; E11.51 Type 2 diabetes mellitus with diabetic peripheral angiopathy without gangrene; E11.42 Type 2 diabetes mellitus with diabetic polyneuropathy; E11.621 Type 2 diabetes mellitus with foot ulcer; N18.30 Chronic kidney disease, stage 3 unspecified; I12.9 Hypertensive chronic kidney disease with stage 1 through stage 4 chronic kidney disease, or unspecified chronic kidney disease; B95.62 Methicillin resistant Staphylococcus aureus infection as the cause of diseases classified elsewhere; I16.0 Hypertensive urgency; L03.032 Cellulitis of left toe; E11.9 Type 2 diabetes mellitus without complications; Z98.1 Arthrodesis status; L97.529 Non-pressure chronic ulcer of other part of left foot with unspecified severity; Z95.810 Presence of automatic (implantable) cardiac defibrillator; Z96.89 Presence of other specified functional implants; Z96.641 Presence of right artificial hip joint; Z86.14 Personal history of Methicillin resistant Staphylococcus aureus infection; Z86.718 Personal history of other venous thrombosis and embolism; Z79.01 Long term (current) use of anticoagulants; Z71.3 Dietary counseling and surveillance; Z82.49 Family history of ischemic heart disease and other diseases of the circulatory system; Z79.899 Other long term (current) drug therapy; Z86.73 Personal history of transient ischemic attack (TIA), and cerebral infarction without residual deficits; Z88.1 Allergy status to other antibiotic agents
CPT/HCPCS: 36410; 36415; 76937; 78315; 80048; 80202; 82565; 85025; 85610; 85652; 85730; 86140; 87070; 87075; 87077; 87186; 87205; 88305; 96365; 96367; 99284

== ENCOUNTER 2023-02-08 04:12 | Emergency (ER) | payer MEDICARE ==
[2023-02-08 04:50] LABS: Anisocytosis Slight; Basophils % (A) 0 %; Eosinophils # (A) 0.2 k/uL (0-0.7); Eosinophils % (A) 2 %; HCT 36.4 % (39.0-53.0); HGB 11.4 gm/dL (13.0-17.5); Hypochromasia Slight; Lymphocytes # (A) 1.2 k/uL (1.0-4.8); Lymphocytes % (A) 10 %; MCH 25.4 pg (25.0-35.0); MCHC 31.4 g/dL (31.0-37.0); Mean Platelet Volume 9.6; Monocytes % (A) 8 %; Neutrophils # (A) 9.4 k/uL (1.3-7.7); Neutrophils % (A) 77 %; Platelet Count 299 k/uL (150-450); RBC 4.49 m/uL (4.30-5.90); RDW 16.6 % (11.5-15.5); WBC 12.3 k/uL (3.8-10.6)
--- NOTE | 2023-02-08 05:06 | ED ---
General Adult HPI - General Chief complaint: Fever Stated complaint: fever Time Seen by Provider: 02/08/23 04:28 Source: patient, EMS, RN notes reviewed, old records reviewed Mode of arrival: EMS - History of Present Illness Initial comments: Exacerbation is a 77-year-old male who presents emergency Department complaining of feeling warm earlier. Is currently at a rehab facility after having a toe amputation. Patient is chronic bilateral lower extremity swelling and leg pain. Patient is some mild increased redness on the right side which is typical for him. States is chronic and is following a professor surgery for it. Left toe amputation site appears within acceptable limits. Patient states he had a temporal thermometer check at his facility after he was found sleeping in sweatpants sweatshirt and a heavy blanket. It was elevated above the 100 and they sent here for further evaluation. Patient states he feels fine now. Did not receive any medications. Has no acute complaints at this time. His no fevers, chills, cough, furnace of breath, chest pain, abdominal pain, nausea, vomiting, or any complaints. No new rashes. Legs are at their current baseline per patient. Presents for further evaluation at this time.Patient does have chronic leg pain, skin changes of the right lower extremity as well as prior stroke with residual deficits. - Related Data Home Medications Medication Instructions Recorded Confirmed Atorvastatin [Lipitor] 10 mg PO HS 10/29/18 01/10/23 Magnesium Oxide 400 mg PO DAILY 07/07/21 01/10/23 Metoprolol Tartrate [Lopressor] 50 mg PO DAILY 07/07/21 01/10/23 Apixaban [Eliquis] 2.5 mg PO BID 11/11/22 01/10/23 Gabapentin [Neurontin] 300 mg PO BID 11/11/22 01/10/23 L.acidoph,Paracasei, B.lactis 1 cap PO DAILY 11/11/22 01/10/23 [Probiotic] Menthol-Zinc Oxide Oint 1 applic TOPICAL TID PRN 11/11/22 01/10/23 [Calmoseptine Ointment] Sennosides [Senokot] 8.6 mg PO HS PRN 11/11/22 01/10/23 Calcium Carbonate [Calcium] 600 mg PO BID 01/10/23 01/10/23 Ketoconazole 2% Shampoo [Nizoral] 1 applic TOPICAL DIRECTED 01/10/23 01/10/23 Multivit-Mins/Iron/Folic/Lycop 1 tab PO DAILY 01/10/23 01/10/23 [Centrum Men's Tablet] Neomycin/Bacitracin/Polymyxinb 1 applic TOPICAL BID 01/10/23 01/10/23 [Neosporin Ointment] methocarbamoL 1,000 mg PO TID 01/10/23 01/10/23 oxyCODONE-APAP 7.5-325MG [Percocet 1 tab PO 5XD PRN 01/10/23 01/10/23 7.5-325 mg] Previous Rx's Medication Instructions Recorded Tamsulosin [Flomax] 0.4 mg PO BID #0 capsule 09/13/21 Doxycycline [Vibramycin] 100 mg PO BID 10 Days #20 capsule 01/19/23 amLODIPine [Norvasc] 10 mg PO DAILY #30 tab 01/19/23 Allergies Allergy/AdvReac Type Severity Reaction Status Date / Time ciprofloxacin [From Cipro] Allergy Unknown Verified 01/10/23 16:01 Review of Systems ROS Statement: Those systems with pertinent positive or pertinent negative responses have been documented in the HPI. Review of Systems: CONST: Denies fever EYES: Denies blurry vision ENT: Denies nasal congestion C/V: Denies Chest pain RESP: Denies shortness of breath GI: Denies abdominal pain : Denies dysuria SKIN: Denies rash. MSK: Denies joint pain. NEURO: Denies headache ROS Other: All systems not noted in ROS Statement are negative. Past Medical History Past Medical History: CVA/TIA, Diabetes Mellitus, Deep Vein Thrombosis (DVT), Hypertension, Osteoarthritis (OA) Additional Past Medical History / Comment(s): wound center patient, states has DVT x3 in rt leg, past hx of diabetes and HTN, no longer requires rx since weight loss. states TIA in 2010 residual muscle weakness in rt leg, wears brace rt leg, uti . 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, pacemaker/ACID placed 2017 History of Any Multi-Drug Resistant Organisms: MRSA Date of last positivie culture/infection: 01/07/22 MDRO Source:: MRSA TOE Past Surgical History: Back Surgery, Hernia Repair, Orthopedic Surgery, Pacemaker Additional Past Surgical History / Comment(s): cervical fusion, right hip replacement, cataract surgery, penile implant Past Anesthesia/Blood Transfusion Reactions: No Reported Reaction Type of Cardiac Device: Permanent Pacemaker, AICD, Unknown Device Placement Date:: May 2018 Past Psychological History: No Psychological Hx Reported Smoking Status: Never smoker Past Alcohol Use History: None Reported Past Drug Use History: None Reported - Past Family History Mother Family Medical History: Cancer Father Family Medical History: Cancer, Coronary Artery Disease (CAD) General Exam - General Exam Comments Initial Comments: General: Appears in no acute distress. Afebrile. HEAD: Normal with no signs of head trauma. EYES: PERRLA, EOMI, conjunctiva normal, no discharge. ENT: Hearing grossly intact, normal oropharynx. RESPIRATORY: Clear breath sounds bilaterally. No wheezes, rales, or rhonchi. C/V: Regular rate and rhythm. S1 and S2 auscultated, no edema, peripheral pulses 2+ and intact throughout ABD: Abd is soft, nontender, nondistended EXT: Normal range of motion, no obvious deformity SKIN: Chronic skin changes of the right lower extremity which are slightly more red area and this is chronic for the patient. States no change from baseline. Has known vascular issues in the right lower extremity. Is on a blood thinner." Amputation Site appears clean, no concern for infection.He has a small on infected sacral ulcer. NEURO: Alert and oriented 4.. No acute focal deficits. Course Vital Signs 02/08/23 02/08/23 04:16 06:04 Temperature 99.1 F 98.2 F Pulse Rate 93 86 Respiratory 18 18 Rate Blood Pressure 125/65 121/52 O2 Sat by Pulse 96 95 Oximetry Medical Decision Making - Medical Decision Making Was pt. sent in by a medical professional or institution (, PA, [employer]CHNICIAN, urgent care, hospital, or longterm...) When possible be specific @ -No Did you speak to anyone other than the patient for history (EMS, parent, family, police, friend...)? What history was obtained from this source @ -No Did you review nursing and triage notes (agree or disagree)? Why? @ -I reviewed and agree with nursing and triage notes, except patient denies any new leg pain or changes from his typical baseline. Were old charts reviewed (outside hosp., previous admission, EMS record, old EKG, old radiological studies, urgent care reports/EKG's, longterm records)? Report findings @ -Old charts reviewed from December 2022 when he was admitted for osteomyelitis in the left foot Differential Diagnosis (chest pain, altered mental status, abdominal pain women, abdominal pain men, vaginal bleeding, weakness, fever, dyspnea, syncope, headache, dizziness, GI bleed, back pain, seizure, CVA, palpatations, mental health, musculoskeletal)? @ -Differential Fever: Pneumonia, viral URI, endocarditis, myocarditis, pericarditis, otitis, sinusitis, peritonsillar Abscess, retropharyngeal Abscess, epiglottitis, peritonitis, appendicitis, Doretha cystitis, diverticulitis, hepatitis, colitis, UTI, PID, TOA, pyelonephritis, prostatitis, epididymitis, meningitis, encephalitis, pulmonary embolism, CVA, thyroid storm, pancreatitis, adrenal crisis, cavernous sinus thrombosis, this is not meant to be an all-inclusive list. EKG interpreted by me (3pts min.). @ -None done X-rays interpreted by me (1pt min.). @ -Chest x-ray reveals no obvious acute cardiopulmonary process. CT interpreted by me (1pt min.). @ -None done U/S interpreted by me (1pt. min.). @ -None done What testing was considered but not performed or refused? (CT, X-rays, U/S, labs)? Why? @ -None What meds were considered but not given or refused? Why? @ -None Did you discuss the management of the patient with other professionals (professionals i.e. , PA, [employer] TECHNICIAN, lab, RT, psych nurse, bilingual social worker, lawyer real estate, teacher, fire control officer, child welfare caseworker)? Give summary @ -No Was smoking cessation discussed for >3mins.? @ -No Was critical care preformed (if so, how long)? @ -No Were there social determinants of health that impacted care today? How? (Homelessness, low income, unemployed, alcoholism, drug addiction, transportation, low edu. Level, literacy, decrease access to med. care, residential, rehab)? @ -No Was there de-escalation of care discussed even if they declined (Discuss DNR or withdrawal of care, Hospice)? DNR status @ -No What co-morbidities impacted this encounter? (DM, HTN, Smoking, COPD, CAD, Cancer, CVA, ARF, Chemo, Hep., AIDS, mental health diagnosis, sleep apnea, morbid obesity)? @ -None Was patient admitted / discharged? Hospital course, mention meds given and route, prescriptions, significant lab abnormalities, going to OR and other pertinent info. @ -Based on the patient's presentation and physical exam, he presents over concern for fever from his nursing facility. Fever was checked and documented with a temporal thermometer after he was found covered up in heavy blankets as well as sweatpants and sweatshirt. Currently is afebrile with oral thermometer without taking any antipyretics. His no other acute complaints at this time a concern for infection. Chronic right lower extremity changes. Presents for f urther evaluation. Vital signs within acceptable limits. Patient's labs returned for a slight leukocytosis of 12. Patient's hemoglobin is chronically decreased and at his baseline at 11.4. Patient has a very slight hyperkalemia 5.2 which will be treated with IV fluids. Patient also has a very mild AK I with a creatinine of 1.91, baseline creatinine around 1.4-1.8. Viral swabs unremarkable. Patient cannot provide a urine sample. Chest x-ray unremarkable. I updated the patient. Patient's repeat temperature is remaining afebrile. He will be discharged home at this time. He was in agreement this plan. He is at his normal baseline. I instructed the patient to follow up with their PCP in the next 1-3 days.. I explained that the patient should return to the emergency department if they experience any worsening symptoms. Strict return precautions were discussed with the patient. The patient expressed understanding of these instructions. I answered all questions that the patient had. The patient was discharged home in good condition with their prescriptions and follow up information. Undiagnosed new problem with uncertain prognosis? @ -No Drug Therapy requiring intensive monitoring for toxicity (Heparin, Nitro, Insulin, Cardizem)? @ -No Were any procedures done? @ -No Diagnosis/symptom? @ -Encounter for physical examination Acute, or Chronic, or Acute on Chronic? @ -Acute Uncomplicated (without systemic symptoms) or Complicated (systemic symptoms)? @ -Uncomplicated Side effects of treatment? @ -none Exacerbation, Progression, or Severe Exacerbation] @ -no Poses a threat to life or bodily function? @ -no - Lab Data Result diagrams: 02/08/23 04:38 02/08/23 04:38 Lab Results 02/08/23 02/08/23 02/08/23 Range/Units 04:38 04:38 04:45 WBC 12.3 H (3.8-10.6) k/uL RBC 4.49 (4.30-5.90) m/uL Hgb 11.4 L (13.0-17.5) gm/dL Hct 36.4 L (39.0-53.0) % MCV 81.0 (80.0-100.0) fL MCH 25.4 (25.0-35.0) pg MCHC 31.4 (31.0-37.0) g/dL RDW 16.6 H (11.5-15.5) % Plt Count 299 (150-450) k/uL MPV 9.6 Neutrophils % 77 % Lymphocytes % 10 % Monocytes % 8 % Eosinophils % 2 % Basophils % 0 % Neutrophils # 9.4 H (1.3-7.7) k/uL Lymphocytes # 1.2 (1.0-4.8) k/uL Monocytes # 1.0 (0-1.0) k/uL Eosinophils # 0.2 (0-0.7) k/uL Basophils # 0.0 (0-0.2) k/uL Hypochromasia Slight Anisocytosis Slight Sodium 134 L (137-145) mmol/L Potassium 5.2 H (3.5-5.1) mmol/L Chloride 98 (98-107) mmol/L Carbon Dioxide 26 (22-30) mmol/L Anion Gap 10 mmol/L BUN 30 H (9-20) mg/dL Creatinine 1.91 H (0.66-1.25) mg/dL Est GFR (CKD-EPI)AfAm 38 (>60 ml/min/1.73 sqM) Est GFR (CKD-EPI)NonAf 33 (>60 ml/min/1.73 sqM) Glucose 138 H (74-99) mg/dL Calcium 8.3 L (8.4-10.2) mg/dL Total Bilirubin 0.6 (0.2-1.3) mg/dL AST 27 (17-59) U/L ALT 18 (4-49) U/L Alkaline Phosphatase 56 (38-126) U/L Total Protein 8.2 (6.3-8.2) g/dL Albumin 3.8 (3.5-5.0) g/dL Influenza Type A (PCR) Not Detected (Not Detectd) Influenza Type B (PCR) Not Detected (Not Detectd) RSV (PCR) Not Detected (Not Detectd) SARS-CoV-2 (PCR) Not Detected (Not Detectd) Disposition Clinical Impression: Encounter for physical examination Disposition: HOME SELF-CARE Condition: Good Is patient prescribed a controlled substance at d/c from ED?: No Referrals: Zeeshan William MD [Primary Care Provider] - 1-2 days Time of Disposition: 06:50
[2023-02-08] MEDS ORDERED: MENTHOL-ZINC OXIDE OINT 113 GM TUBE TOPICAL PRN (05:12)
[2023-02-08 05:35] LABS: Albumin 3.8 g/dL (3.5-5.0); Calcium 8.3 mg/dL (8.4-10.2); Potassium 5.2 mmol/L (3.5-5.1); Total Bilirubin 0.6 mg/dL (0.2-1.3); Total Protein 8.2 g/dL (6.3-8.2)
[2023-02-08] MEDS ORDERED: SODIUM CHLORIDE 0.9% 1,000 ML IV STA (05:54)
[2023-02-08 07:21] VITALS: TEMP 98.1
[2023-02-08 07:30] LABS: Appearance,Urine Clear (Clear); Bilirubin,Urine Negative (Negative); Blood,Urine Trace (Negative); Color,Urine Light Yellow; Glucose,Urine (UA) Negative (Negative); Ketones,Urine Negative (Negative); Leukocyte Esterase,Urine Large (Negative); Nitrite,Urine Negative (Negative); Protein,Urine Trace (Negative); RBC,Urine 2 /hpf (0-5); Specific Gravity,Urine 1.007 (1.001-1.035); Urobilinogen,Urine <2.0 mg/dL (<2.0); WBC,Urine 31 /hpf (0-5)
[2023-02-08] MEDS ORDERED: CEPHALEXIN 500 MG CAP PO STA (08:23)
--- NOTE | 2023-02-08 08:23 | ED ---
Medical Decision Making - Medical Decision Making Urine studies returned with borderline for UTI. Will empirically be started on antibiotics at this time. Patient updated and in agreement this plan. He will be given a prescription outpatient for them. Diagnosis/symptom? @ -UTI Acute, or Chronic, or Acute on Chronic? @ -Acute Uncomplicated (without systemic symptoms) or Complicated (systemic symptoms)? @ -Uncomplicated Side effects of treatment? @ -none Exacerbation, Progression, or Severe Exacerbation] @ -no Poses a threat to life or bodily function? @ -no - Lab Data Result diagrams: 02/08/23 04:38 02/08/23 04:38 Lab Results 02/08/23 02/08/23 02/08/23 Range/Units 04:38 04:38 04:45 WBC 12.3 H (3.8-10.6) k/uL RBC 4.49 (4.30-5.90) m/uL Hgb 11.4 L (13.0-17.5) gm/dL Hct 36.4 L (39.0-53.0) % MCV 81.0 (80.0-100.0) fL MCH 25.4 (25.0-35.0) pg MCHC 31.4 (31.0-37.0) g/dL RDW 16.6 H (11.5-15.5) % Plt Count 299 (150-450) k/uL MPV 9.6 Neutrophils % 77 % Lymphocytes % 10 % Monocytes % 8 % Eosinophils % 2 % Basophils % 0 % Neutrophils # 9.4 H (1.3-7.7) k/uL Lymphocytes # 1.2 (1.0-4.8) k/uL Monocytes # 1.0 (0-1.0) k/uL Eosinophils # 0.2 (0-0.7) k/uL Basophils # 0.0 (0-0.2) k/uL Hypochromasia Slight Anisocytosis Slight Sodium 134 L (137-145) mmol/L Potassium 5.2 H (3.5-5.1) mmol/L Chloride 98 (98-107) mmol/L Carbon Dioxide 26 (22-30) mmol/L Anion Gap 10 mmol/L BUN 30 H (9-20) mg/dL Creatinine 1.91 H (0.66-1.25) mg/dL Est GFR (CKD-EPI)AfAm 38 (>60 ml/min/1.73 sqM) Est GFR (CKD-EPI)NonAf 33 (>60 ml/min/1.73 sqM) Glucose 138 H (74-99) mg/dL Calcium 8.3 L (8.4-10.2) mg/dL Total Bilirubin 0.6 (0.2-1.3) mg/dL AST 27 (17-59) U/L ALT 18 (4-49) U/L Alkaline Phosphatase 56 (38-126) U/L Total Protein 8.2 (6.3-8.2) g/dL Albumin 3.8 (3.5-5.0) g/dL Urine Color Urine Appearance (Clear) Urine pH (5.0-8.0) Ur Specific [place] (1.001-1.035) Urine Protein (Negative) Urine Glucose (UA) (Negative) Urine Ketones (Negative) Urine Blood (Negative) Urine Nitrite (Negative) Urine Bilirubin (Negative) Urine Urobilinogen (<2.0) mg/dL Ur Leukocyte Esterase (Negative) Urine RBC (0-5) /hpf Urine WBC (0-5) /hpf Influenza Type A (PCR) Not Detected (Not Detectd) Influenza Type B (PCR) Not Detected (Not Detectd) RSV (PCR) Not Detected (Not Detectd) SARS-CoV-2 (PCR) Not Detected (Not Detectd) 02/08/23 Range/Units 07:01 WBC (3.8-10.6) k/uL RBC (4.30-5.90) m/uL Hgb (13.0-17.5) gm/dL Hct (39.0-53.0) % MCV (80.0-100.0) fL MCH (25.0-35.0) pg MCHC (31.0-37.0) g/dL RDW (11.5-15.5) % Plt Count (150-450) k/uL MPV Neutrophils % % Lymphocytes % % Monocytes % % Eosinophils % % Basophils % % Neutrophils # (1.3-7.7) k/uL Lymphocytes # (1.0-4.8) k/uL Monocytes # (0-1.0) k/uL Eosinophils # (0-0.7) k/uL Basophils # (0-0.2) k/uL Hypochromasia Anisocytosis Sodium (137-145) mmol/L Potassium (3.5-5.1) mmol/L Chloride (98-107) mmol/L Carbon Dioxide (22-30) mmol/L Anion Gap mmol/L BUN (9-20) mg/dL Creatinine (0.66-1.25) mg/dL Est GFR (CKD-EPI)AfAm (>60 ml/min/1.73 sqM) Est GFR (CKD-EPI)NonAf (>60 ml/min/1.73 sqM) Glucose (74-99) mg/dL Calcium (8.4-10.2) mg/dL Total Bilirubin (0.2-1.3) mg/dL AST (17-59) U/L ALT (4-49) U/L Alkaline Phosphatase (38-126) U/L Total Protein (6.3-8.2) g/dL Albumin (3.5-5.0) g/dL Urine Color Light Yellow Urine Appearance Clear (Clear) Urine pH 7.0 (5.0-8.0) Ur Specific [place] 1.007 (1.001-1.035) Urine Protein Trace H (Negative) Urine Glucose (UA) Negative (Negative) Urine Ketones Negative (Negative) Urine Blood Trace H (Negative) Urine Nitrite Negative (Negative) Urine Bilirubin Negative (Negative) Urine Urobilinogen <2.0 (<2.0) mg/dL Ur Leukocyte Esterase Large H (Negative) Urine RBC 2 (0-5) /hpf Urine WBC 31 H (0-5) /hpf Influenza Type A (PCR) (Not Detectd) Influenza Type B (PCR) (Not Detectd) RSV (PCR) (Not Detectd) SARS-CoV-2 (PCR) (Not Detectd) Disposition Clinical Impression: Encounter for physical examination, UTI (urinary tract infection) Disposition: HOME SELF-CARE Condition: Good Prescriptions: Cephalexin [Keflex] 500 mg PO Q12HR 5 Days #10 cap Is patient prescribed a controlled substance at d/c from ED?: No Referrals: Zeeshan William MD [Primary Care Provider] - 1-2 days
--- NOTE | 2023-02-08 08:49 | XR ---
EXAMINATION TYPE: XR chest 1V portable DATE OF EXAM: 02/08/2023 COMPARISON: 11/21/2022 INDICATION: Subjective fever TECHNIQUE: Single frontal view of the chest is obtained. FINDINGS: The heart size is normal. The pulmonary vasculature is normal. The lungs are clear. There is air within loops of bowel under the right diaphragm. Pacemaker overlies left chest. IMPRESSION: 1. No acute pulmonary process.
[2023-02-08 09:33] VITALS: BP 130/68; PULSE 85; RESP 18
== END 2023-02-08 09:31 | disposition home or self-care (01) ==
LOC: EC 04:12
DX: Z00.00 Encounter for general adult medical examination without abnormal findings (principal); N39.0 Urinary tract infection, site not specified; E11.9 Type 2 diabetes mellitus without complications; I10 Essential (primary) hypertension; M19.90 Unspecified osteoarthritis, unspecified site; Z20.822 Contact with and (suspected) exposure to COVID-19; Z79.01 Long term (current) use of anticoagulants; Z88.1 Allergy status to other antibiotic agents; Z79.899 Other long term (current) drug therapy; Z86.718 Personal history of other venous thrombosis and embolism; Z86.73 Personal history of transient ischemic attack (TIA), and cerebral infarction without residual deficits
CPT/HCPCS: 36415; 71045; 80053; 81001; 85025; 87636; 96360; 99285

== ENCOUNTER 2023-02-16 13:50 | Emergency (ER) | payer MEDICARE ==
[2023-02-16] MEDS ORDERED: KETOROLAC 15 MG/ML 1 ML VIAL IVP STA (14:12)
[2023-02-16] MEDS ORDERED: HYDROmorphone 0.5 MG/0.5 ML SYRINGE IVP STA (14:12)
--- NOTE | 2023-02-16 14:37 | ED ---
General Adult HPI - General Source: patient, RN notes reviewed, old records reviewed Mode of arrival: EMS Limitations: physical limitation <Denzel Ba - Last Filed: 02/16/23 15:52> <Denzel Wilson - Last Filed: 02/16/23 16:27> - General Chief complaint: Fall Stated complaint: Fall, right hip pain Time Seen by Provider: 02/16/23 13:55 - History of Present Illness Initial comments: This is a 77-year-old male who comes in today complaining of right-sided hip pain. Patient states he fell and hurt his right hip and it's difficult to move at this point secondary to the fact hurt so much. Patient states he has a hip replacement on that side already. Patient denies any head or neck patient denies any back pain or chest pain patient denies any other complaints at this time (Denzel Ba) - Related Data Home Medications Medication Instructions Recorded Confirmed Atorvastatin [Lipitor] 10 mg PO HS 10/29/18 01/10/23 Magnesium Oxide 400 mg PO DAILY 07/07/21 01/10/23 Metoprolol Tartrate [Lopressor] 50 mg PO DAILY 07/07/21 01/10/23 Apixaban [Eliquis] 2.5 mg PO BID 11/11/22 01/10/23 Gabapentin [Neurontin] 300 mg PO BID 11/11/22 01/10/23 L.acidoph,Paracasei, B.lactis 1 cap PO DAILY 11/11/22 01/10/23 [Probiotic] Menthol-Zinc Oxide Oint 1 applic TOPICAL TID PRN 11/11/22 01/10/23 [Calmoseptine Ointment] Sennosides [Senokot] 8.6 mg PO HS PRN 11/11/22 01/10/23 Calcium Carbonate [Calcium] 600 mg PO BID 01/10/23 01/10/23 Ketoconazole 2% Shampoo [Nizoral] 1 applic TOPICAL DIRECTED 01/10/23 01/10/23 Multivit-Mins/Iron/Folic/Lycop 1 tab PO DAILY 01/10/23 01/10/23 [Centrum Men's Tablet] Neomycin/Bacitracin/Polymyxinb 1 applic TOPICAL BID 01/10/23 01/10/23 [Neosporin Ointment] methocarbamoL 1,000 mg PO TID 01/10/23 01/10/23 oxyCODONE-APAP 7.5-325MG [Percocet 1 tab PO 5XD PRN 01/10/23 01/10/23 7.5-325 mg] Previous Rx's Medication Instructions Recorded Tamsulosin [Flomax] 0.4 mg PO BID #0 capsule 09/13/21 Doxycycline [Vibramycin] 100 mg PO BID 10 Days #20 capsule 01/19/23 amLODIPine [Norvasc] 10 mg PO DAILY #30 tab 01/19/23 Cephalexin [Keflex] 500 mg PO Q12HR 5 Days #10 cap 02/08/23 Allergies Allergy/AdvReac Type Severity Reaction Status Date / Time ciprofloxacin [From Cipro] Allergy Unknown Verified 02/16/23 13:58 Review of Systems ROS Other: All systems not noted in ROS Statement are negative. <Denzel Ba - Last Filed: 02/16/23 15:52> ROS Other: All systems not noted in ROS Statement are negative. <Denzel Wilson - Last Filed: 02/16/23 16:27> ROS Statement: Those systems with pertinent positive or pertinent negative responses have been documented in the HPI. Past Medical History Past Medical History: CVA/TIA, Diabetes Mellitus, Deep Vein Thrombosis (DVT), Hypertension, Osteoarthritis (OA) Additional Past Medical History / Comment(s): wound center patient, states has DVT x3 in rt leg, past hx of diabetes and HTN, no longer requires rx since weight loss. states TIA in 2010 residual muscle weakness in rt leg, wears brace rt leg, uti . 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, pacemaker/ACID placed 2017 History of Any Multi-Drug Resistant Organisms: MRSA Date of last positivie culture/infection: 01/07/22 MDRO Source:: MRSA TOE Past Surgical History: Back Surgery, Hernia Repair, Orthopedic Surgery, Pac emaker Additional Past Surgical History / Comment(s): cervical fusion, right hip replacement, cataract surgery, penile implant Past Anesthesia/Blood Transfusion Reactions: No Reported Reaction Type of Cardiac Device: Permanent Pacemaker, AICD, Unknown Device Placement Date:: May 2018 Past Psychological History: No Psychological Hx Reported Smoking Status: Never smoker Past Alcohol Use History: None Reported Past Drug Use History: None Reported - Past Family History Mother Family Medical History: Cancer Father Family Medical History: Cancer, Coronary Artery Disease (CAD) <Denzel Ba - Last Filed: 02/16/23 15:52> General Exam Limitations: physical limitation <Denzel Ba - Last Filed: 02/16/23 15:52> - General Exam Comments Initial Comments: GENERAL: Patient is well-developed and well-nourished. Patient is nontoxic and well- hydrated and is in mild distress. ENT: Neck is soft and supple. No significant lymphadenopathy is noted. Oropharynx is clear. Moist mucous membranes. Neck has full range of motion without eliciting any pain. EYES: The sclera were anicteric and conjunctiva were pink and moist. Extraocular movements were intact and pupils were equal round and reactive to light. Eyelids were unremarkable. PULMONARY: Unlabored respirations. Good breath sounds bilaterally. No audible rales rhonchi or wheezing was noted. CARDIOVASCULAR: There is a regular rate and rhythm without any murmurs gallops or rubs. ABDOMEN: Soft and nontender with normal bowel sounds. SKIN: Skin is clear with no lesions or rashes and otherwise unremarkable. NEUROLOGIC: Patient is alert and oriented x3. Cranial nerves II through XII are grossly intact. Motor and sensory are also intact. Normal speech, volume and content. Symmetrical smile. MUSCULOSKELETAL: Patient has some lateral right hip pain on palpation and patient is unable to flex at the hip secondary to pain. LYMPHATICS: No significant lymphadenopathy is noted PSYCHIATRIC: Normal psychiatric evaluation. (Denzel Ba) Course Vital Signs 02/16/23 13:51 Temperature 100.6 F H Pulse Rate 83 Respiratory 19 Rate Blood Pressure 163/80 O2 Sat by Pulse 95 Oximetry Medical Decision Making - Lab Data Result diagrams: 02/16/23 14:53 02/16/23 14:53 <Denzel Ba - Last Filed: 02/16/23 15:52> - Lab Data Result diagrams: 02/16/23 14:53 02/16/23 14:53 <Denzel Wilson - Last Filed: 02/16/23 16:27> - Medical Decision Making Was pt. sent in by a medical professional or institution (, PA, PAPER [employer] MACHINE OPERATOR, urgent care, hospital, or [place] health [facility] facility...) When possible be specific @ -No Did you speak to anyone other than the patient for history (EMS, parent, family, police, friend...)? What history was obtained from this source @ -No Did you review nursing and triage notes (agree or disagree)? Why? @ -I reviewed and agree with nursing and triage notes Were old charts reviewed (outside hosp., previous admission, EMS record, old EKG, old radiological studies, urgent care reports/EKG's, [place] health [facility] facility records)? Report findings @ -No old charts were reviewed Differential Diagnosis (chest pain, altered mental status, abdominal pain women, abdominal pain men, vaginal bleeding, weakness, fever, dyspnea, syncope, headac he, dizziness, GI bleed, back pain, seizure, CVA, palpatations, mental health, musculoskeletal)? @ -Differential Musculoskeletal Muscular strain, contusion, ligament sprain, fracture, arthritis, septic arthritis, bursitis, cellulitis, muscle spasm, nerve compression, DVT, arterial occlusion, herpes zoster, electrolyte abnormality, tumor.... This is not meant to be in all inclusive list EKG interpreted by me (3pts min.). @ -As above X-rays interpreted by me (1pt min.). @ -X-ray of the chest shows no acute abnormality and it was interpreted by me. Hip is interpreted by me as well and it shows no acute fracture CT interpreted by me (1pt min.). @ -None done U/S interpreted by me (1pt. min.). @ -None done What testing was considered but not performed or refused? (CT, X-rays, U/S, labs)? Why? @ -None What meds were considered but not given or refused? Why? @ -None Did you discuss the management of the patient with other professionals (professionals i.e. , PA, PAPER [employer] MACHINE OPERATOR, lab, RT, psych nurse, hospice social worker, professional athletes coach, teacher, navigating officer, family service caseworker)? Give summary @ -No Was smoking cessation discussed for >3mins.? @ -No Was critical care preformed (if so, how long)? @ -No Were there social determinants of health that impacted care today? How? (Homelessness, low income, unemployed, alcoholism, drug addiction, transportation, low edu. Level, literacy, decrease access to med. care, long-term, rehab)? @ -No Was there de-escalation of care discussed even if they declined (Discuss DNR or withdrawal of care, Hospice)? DNR status @ -No What co-morbidities impacted this encounter? (DM, HTN, Smoking, COPD, CAD, Cancer, CVA, ARF, Chemo, Hep., AIDS, mental health diagnosis, sleep apnea, morbid obesity)? @ -None Was patient admitted / discharged? Hospital course, mention meds given and route, prescriptions, significant lab abnormalities, going to OR and other pertinent info. @ -Showed a low-grade fever and we're investigating the cause even though the patient was asymptomatic. Patient complains of right hip pain but he was able to get up and ambulate he stated that he felt as though he can get around with a walker like he normally does just a little bit slower. Patient also states he is often in a wheelchair at his facility. Undiagnosed new problem with uncertain prognosis? @ -No Drug Therapy requiring intensive monitoring for toxicity (Heparin, Nitro, Insulin, Cardizem)? @ -No Were any procedures done? @ -No Diagnosis/symptom? @ -Contusion hip Acute, or Chronic, or Acute on Chronic? @ -Acute Uncomplicated (without systemic symptoms) or Complicated (systemic symptoms)? @ -Uncomplicated Side effects of treatment? @ -No Exacerbation, Progression, or Severe Exacerbation? @ -No Poses a threat to life or bodily function? How? (Chest pain, [place], [place], pneumonia, PE, COPD, DKA, ARF, appy, cholecystitis, CVA, Diverticulitis, Homicidal, Suicidal, threat to staff... and all critical care pts) @ -No (Denzel Ba) - Lab Data Lab Results 02/16/23 02/16/23 02/16/23 Range/Units 14:53 14:53 14:53 WBC 9.2 (3.8-10.6) k/uL RBC 4.58 (4.30-5.90) m/uL Hgb 11.9 L (13.0-17.5) gm/dL Hct 37.5 L (39.0-53.0) % MCV 82.0 (80.0-100.0) fL MCH 26.1 (25.0-35.0) pg MCHC 31.8 (31.0-37.0) g/dL RDW 16.9 H (11.5-15.5) % Plt Count 292 (150-450) k/uL MPV 9.1 Neutrophils % 71 % Lymphocytes % 9 % Monocytes % 15 % Eosinophils % 2 % Basophils % 0 % Neutrophils # 6.6 (1.3-7.7) k/uL Lymphocytes # 0.9 L (1.0-4.8) k/uL Monocytes # 1.4 H (0-1.0) k/uL Eosinophils # 0.2 (0-0.7) k/uL Basophils # 0.0 (0-0.2) k/uL Hypochromasia Slight Anisocytosis Slight Sodium 138 (137-145) mmol/L Potassium 4.7 (3.5-5.1) mmol/L Chloride 102 (98-107) mmol/L Carbon Dioxide 28 (22-30) mmol/L Anion Gap 8 mmol/L BUN 20 (9-20) mg/dL Creatinine 1.71 H (0.66-1.25) mg/dL Est GFR (CKD-EPI)AfAm 43 (>60 ml/min/1.73 sqM) Est GFR (CKD-EPI)NonAf 37 (>60 ml/min/1.73 sqM) Glucose 120 H (74-99) mg/dL Calcium 8.8 (8.4-10.2) mg/dL Total Bilirubin 0.8 (0.2-1.3) mg/dL AST 26 (17-59) U/L ALT 20 (4-49) U/L Alkaline Phosphatase 59 (38-126) U/L Total Protein 8.5 H (6.3-8.2) g/dL Albumin 4.0 (3.5-5.0) g/dL Urine Color Light Yellow Urine Appearance Clear (Clear) Urine pH 8.5 H (5.0-8.0) Ur Specific [place] 1.010 (1.001-1.035) Urine Protein 1+ H (Negative) Urine Glucose (UA) Negative (Negative) Urine Ketones Negative (Negative) Urine Blood Negative (Negative) Urine Nitrite Negative (Negative) Urine Bilirubin Negative (Negative) Urine Urobilinogen <2.0 (<2.0) mg/dL Ur Leukocyte Esterase Moderate H (Negative) Urine RBC 3 (0-5) /hpf Urine WBC 21 H (0-5) /hpf Ur Squamous Epith Cells 1 (0-4) /hpf Disposition Is patient prescribed a controlled substance at d/c from ED?: No Time of Disposition: 15:54 <Denzel Ba - Last Filed: 02/16/23 15:52> Is patient prescribed a controlled substance at d/c from ED?: No <Denzel Wilson - Last Filed: 02/16/23 16:27> Clinical Impression: Contusion, hip, UTI (urinary tract infection), Fever Disposition: HOME SELF-CARE Instructions (If sedation given, give patient instructions): Fall Prevention (ED), Hip Contusion (ED), Urinary Tract Infection in Men (ED) Referrals: Zeeshan William MD [Primary Care Provider] - 1-2 days
--- NOTE | 2023-02-16 14:54 | XR ---
EXAMINATION TYPE: XR Hip RT and AP Pelvis DATE OF EXAM: 02/16/2023 COMPARISON: NONE HISTORY: Pain after fall injury. TECHNIQUE: A single AP view of the pelvis is obtained. Two views of the right hip are obtained. FINDINGS: Osseous structures are demineralized. Metallic hardware right hip arthroplasty is through h ealed fracture of the right proximal femur. No prosthetic dislocation. There is some bony fusion at l evel of the pubic symphysis. There is penile prosthesis or device noted. Mild axial joint space loss left hip. Sacroiliac joints fairly well preserved. Overlying soft tissues unremarkable. IMPRESSION: There is no acute displaced fracture in the pelvis or right hip.
[2023-02-16 15:07] LABS: Anisocytosis Slight; Basophils % (A) 0 %; Eosinophils # (A) 0.2 k/uL (0-0.7); Eosinophils % (A) 2 %; HCT 37.5 % (39.0-53.0); HGB 11.9 gm/dL (13.0-17.5); Hypochromasia Slight; Lymphocytes # (A) 0.9 k/uL (1.0-4.8); Lymphocytes % (A) 9 %; MCH 26.1 pg (25.0-35.0); MCHC 31.8 g/dL (31.0-37.0); Mean Platelet Volume 9.1; Monocytes # (A) 1.4 k/uL (0-1.0); Monocytes % (A) 15 %; Neutrophils # (A) 6.6 k/uL (1.3-7.7); Neutrophils % (A) 71 %; Platelet Count 292 k/uL (150-450); RBC 4.58 m/uL (4.30-5.90); RDW 16.9 % (11.5-15.5); WBC 9.2 k/uL (3.8-10.6)
--- NOTE | 2023-02-16 15:14 | XR ---
EXAMINATION TYPE: XR chest 2V DATE OF EXAM: 02/16/2023 COMPARISON: Chest x-ray February 08, 2023 HISTORY: Difficulty in breathing. TECHNIQUE: Frontal and lateral views of the chest are obtained. FINDINGS: Low lung volumes and chronic parenchymal changes bilaterally redemonstrated. There is no kaur spicious focal air space opacity, pleural effusion, or pneumothorax seen. Cardiomegaly with dual lead pacemaker. Surgical change of the cervical spine is redemonstrated. IMPRESSION: Cardiomegaly and chronic changes without acute pulmonary process.
[2023-02-16 15:16] LABS: Calcium 8.8 mg/dL (8.4-10.2); Potassium 4.7 mmol/L (3.5-5.1); Total Bilirubin 0.8 mg/dL (0.2-1.3); Total Protein 8.5 g/dL (6.3-8.2)
[2023-02-16 16:19] LABS: Appearance,Urine Clear (Clear); Bilirubin,Urine Negative (Negative); Blood,Urine Negative (Negative); Color,Urine Light Yellow; Glucose,Urine (UA) Negative (Negative); Ketones,Urine Negative (Negative); Leukocyte Esterase,Urine Moderate (Negative); Nitrite,Urine Negative (Negative); PH, Urine 8.5 (5.0-8.0); Protein,Urine 1+ (Negative); RBC,Urine 3 /hpf (0-5); Squamous Epithelial Cell,Urine 1 /hpf (0-4); Urobilinogen,Urine <2.0 mg/dL (<2.0); WBC,Urine 21 /hpf (0-5)
[2023-02-16] MEDS ORDERED: cefTRIAXone IN SWFI 1,000 MG/10 ML SYRINGE IVP STA (16:25)
[2023-02-16] MEDS ORDERED: AMOXIC-POT CLAV 875-125MG 1 EACH TAB PO STA (16:25)
[2023-02-16] MEDS ORDERED: ACETAMINOPHEN TAB 500 MG TAB PO STA (16:25)
[2023-02-16] MEDS ORDERED: AMOXIC-POT CLAV 875MG STARTER PACK 2 TAB BTL PO STA (16:25)
[2023-02-16 16:49] VITALS: BP 161/73; PULSE 82; RESP 18; TEMP 100.5
== END 2023-02-16 18:20 | disposition home or self-care (01) ==
LOC: EC 13:50
DX: S70.01XA Contusion of right hip, initial encounter (principal); N39.0 Urinary tract infection, site not specified; R50.9 Fever, unspecified; I51.7 Cardiomegaly; E11.9 Type 2 diabetes mellitus without complications; I10 Essential (primary) hypertension; M19.90 Unspecified osteoarthritis, unspecified site; Z86.73 Personal history of transient ischemic attack (TIA), and cerebral infarction without residual deficits; Z88.6 Allergy status to analgesic agent; Z79.1 Long term (current) use of non-steroidal anti-inflammatories (NSAID); Z79.899 Other long term (current) drug therapy; Z79.01 Long term (current) use of anticoagulants; W18.30XA Fall on same level, unspecified, initial encounter
CPT/HCPCS: 36415; 80053; 85025; 81001; 73502; 71046; 99284; 96374; 96375 ×2; J0696; J1885; J1170

== ENCOUNTER 2023-02-17 04:05 | Observation (INO) | payer OTHER ==
[2023-02-17] MEDS ORDERED: SODIUM CHLORIDE 0.9% 500 ML 500 ML IV STA (04:36)
[2023-02-17] MEDS ORDERED: ACETAMINOPHEN TAB 500 MG TAB PO STA (04:36)
[2023-02-17] MEDS ORDERED: MORPHINE SULFATE 4 MG/ML SYRINGE IVP STA (05:11)
[2023-02-17 05:47] LABS: Anisocytosis Slight; Basophils % (A) 0 %; Eosinophils # (A) 0.2 k/uL (0-0.7); Eosinophils % (A) 3 %; HCT 33.2 % (39.0-53.0); HGB 10.2 gm/dL (13.0-17.5); Lymphocytes # (A) 0.4 k/uL (1.0-4.8); Lymphocytes % (A) 6 %; MCH 24.9 pg (25.0-35.0); MCHC 30.9 g/dL (31.0-37.0); MCV 80.7 fL (80.0-100.0); Mean Platelet Volume 9.5; Monocytes # (A) 0.9 k/uL (0-1.0); Monocytes % (A) 13 %; Neutrophils # (A) 5.1 k/uL (1.3-7.7); Neutrophils % (A) 74 %; Platelet Count 258 k/uL (150-450); RBC 4.11 m/uL (4.30-5.90); RDW 16.6 % (11.5-15.5); WBC 6.9 k/uL (3.8-10.6)
[2023-02-17 05:56] LABS: INR 1.2 (<1.2); Partial Thromboplastin Time 30.8 sec (22.0-30.0); Prothrombin Time 12.6 sec (9.0-12.0)
[2023-02-17 06:00] LABS: Albumin 3.4 g/dL (3.5-5.0); Calcium 8.1 mg/dL (8.4-10.2); Potassium 4.4 mmol/L (3.5-5.1); Total Bilirubin 0.6 mg/dL (0.2-1.3); Total Protein 7.4 g/dL (6.3-8.2)
[2023-02-17] MEDS ORDERED: ACETAMINOPHEN TAB 325 MG TAB PO PRN (08:33)
[2023-02-17] MEDS ORDERED: NALOXONE 0.4 MG/ML 1 ML VIAL IV PRN (08:33)
--- NOTE | 2023-02-17 08:34 | ED ---
General Adult HPI - General Chief complaint: Urogenital Stated complaint: Fever Time Seen by Provider: 02/17/23 04:15 Source: patient, EMS Mode of arrival: EMS - History of Present Illness Initial comments: 77-year-old male with past history of CVA, diabetes, DVT who presents to the emergency department under the direction of the [facility]. Patient is sent over for high fever. He was seen in the emergency department yesterday for significant right hip pain. States that he had a fall and was unable to weight- bear. X-ray was performed which did not demonstrate any significant findings. He states he was given pain medications which significantly helped his pain and reduced it by 50%. He has been able to ambulate with his walker. Last evening the patient spiked a temperature of 103. They did not provide him with any medications but sent him immediately over to the emergency department. He denies any complaints other than his right hip pain. No cough or shortness of breath. No abdominal pain. No diarrhea. He does have a sacral wound which has been present for some time. He denies any other rashes. Did have previous debridement of his left fifth toe and states that it is looking well at this time. No other alleviating, precipitating or modifying factors - Related Data Home Medications Medication Instructions Recorded Confirmed Atorvastatin [Lipitor] 10 mg PO HS 10/29/18 02/17/23 Magnesium Oxide 400 mg PO DAILY 07/07/21 02/17/23 Metoprolol Tartrate [Lopressor] 50 mg PO DAILY 07/07/21 02/17/23 Apixaban [Eliquis] 2.5 mg PO BID 11/11/22 02/17/23 Gabapentin [Neurontin] 300 mg PO BID 11/11/22 02/17/23 L.acidoph,Paracasei, B.lactis 1 cap PO DAILY 11/11/22 02/17/23 [Probiotic] Sennosides [Senokot] 8.6 mg PO HS PRN 11/11/22 02/17/23 Calcium Carbonate [Calcium] 600 mg PO BID 01/10/23 02/17/23 Ketoconazole 2% Shampoo [Nizoral] 1 applic TOPICAL DIRECTED 01/10/23 02/17/23 Multivit-Mins/Iron/Folic/Lycop 1 tab PO DAILY 01/10/23 02/17/23 [Centrum Men's Tablet] Neomycin/Bacitracin/Polymyxinb 1 applic TOPICAL BID 01/10/23 02/17/23 [Neosporin Ointment] methocarbamoL 1,000 mg PO TID 01/10/23 02/17/23 oxyCODONE-APAP 7.5-325MG [Percocet 1 tab PO 5XD PRN 01/10/23 02/17/23 7.5-325 mg] Previous Rx's Medication Instructions Recorded Tamsulosin [Flomax] 0.4 mg PO BID #0 capsule 09/13/21 amLODIPine [Norvasc] 10 mg PO DAILY #30 tab 01/19/23 Doxycycline [Vibramycin] 100 mg PO BID 14 Days #28 capsule 02/20/23 Allergies Allergy/AdvReac Type Severity Reaction Status Date / Time ciprofloxacin [From Cipro] Allergy Unknown Verified 02/17/23 10:34 doxazosin Allergy Unknown Verified 02/17/23 10:34 Review of Systems ROS Statement: Those systems with pertinent positive or pertinent negative responses have been documented in the HPI. ROS Other: All systems not noted in ROS Statement are negative. Past Medical History Past Medical History: CVA/TIA, Diabetes Mellitus, Deep Vein Thrombosis (DVT), Hypertension, Osteoarthritis (OA) Additional Past Medical History / Comment(s): wound center patient, states has DVT x3 in rt leg, past hx of diabetes and HTN, no longer requires rx since weight loss. states TIA in 2010 residual muscle weakness in rt leg, wears brace rt leg, uti . 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, pacemaker/ACID placed 2017 History of Any Multi-Drug Resistant Organisms: MRSA Date of last positivie culture/infection: 01/07/22 MDRO Source:: MRSA TOE Past Surgical History: Back Surgery, Hernia Repair, Orthopedic Surgery, Pacemaker Additional Past Surgical History / Comment(s): cervical fusion, right hip replacement, cataract surgery, penile implant Past Anesthesia/Blood Transfusion Reactions: No Reported Reaction Type of Cardiac Device: Permanent Pacemaker, AICD, Unknown Device Placement Date:: May 2018 Past Psychological History: No Psychological Hx Reported Smoking Status: Never smoker Past Alcohol Use History: None Reported Past Drug Use History: None Reported - Past Family History Mother Family Medical History: Cancer Father Family Medical History: Cancer, Coronary Artery Disease (CAD) General Exam General appearance: alert, in no apparent distress Head exam: Present: atraumatic, normocephalic, normal inspection Eye exam: Present: normal appearance, PERRL, EOMI. Absent: scleral icterus, conjunctival injection, periorbital swelling ENT exam: Present: normal exam, mucous membranes moist Neck exam: Present: normal inspection. Absent: tenderness, meningismus, lymphadenopathy Respiratory exam: Present: normal lung sounds bilaterally. Absent: respiratory distress, wheezes, rales, rhonchi, stridor Cardiovascular Exam: Present: normal rhythm, tachycardia GI/Abdominal exam: Present: soft, normal bowel sounds. Absent: distended, te nderness, guarding, rebound, rigid Extremities exam: Present: tenderness (to palpation of the right hip. no overlying redness or swelling), normal capillary refill. Absent: pedal edema, joint swelling, calf tenderness Neurological exam: Present: alert, oriented X3, CN II-XII intact Psychiatric exam: Present: normal affect, normal mood Skin exam: Present: other (stage 2 sarcral wound. mild surrounding redness. no drainage. ) Course Vital Signs 02/17/23 02/17/23 02/17/23 04:12 05:43 08:34 Temperature 103 F H 98.3 F 97.6 F Pulse Rate 103 H 91 Respiratory 20 16 Rate Blood Pressure 150/71 170/86 O2 Sat by Pulse 94 L 95 Oximetry 02/17/23 02/17/23 02/17/23 09:49 13:38 15:00 Temperature 100.3 F H Pulse Rate 88 98 Respiratory 16 18 Rate Blood Pressure 155/71 168/84 141/70 O2 Sat by Pulse 96 96 Oximetry 02/17/23 02/17/23 02/17/23 16:00 17:33 19:49 Temperature 98.4 F Pulse Rate 82 90 86 Respiratory 18 18 16 Rate Blood Pressure 156/84 138/76 168/86 O2 Sat by Pulse 98 97 98 Oximetry Medical Decision Making - Medical Decision Making Was pt. sent in by a medical professional or institution (, PA, ASSISTANT ASSOCIATE FULL PROFESSOR, urgent care, hospital, or correction...) When possible be specific @ -[facility] Did you speak to anyone other than the patient for history (EMS, parent, family, police, friend...)? What history was obtained from this source @ -No Did you review nursing and triage notes (agree or disagree)? Why? @ -I reviewed and agree with nursing and triage notes Were old charts reviewed (outside hosp., previous admission, EMS record, old EKG, old radiological studies, urgent care reports/EKG's, correction records)? Report findings @ -Old charts were reviewed - patient seen after a fall in the ED with complaint of right hip pain yesterday Differential Diagnosis (chest pain, altered mental status, abdominal pain women, abdominal pain men, vaginal bleeding, weakness, fever, dyspnea, syncope, headache, dizziness, GI bleed, back pain, seizure, CVA, palpatations, mental health, musculoskeletal)? @ -influenza, uti, cellulitis, meningitis, covid, pneumonia EKG interpreted by me (3pts min.). @ -None done X-rays interpreted by me (1pt min.). @ -None done CT interpreted by me (1pt min.). @ -None done U/S interpreted by me (1pt. min.). @ -None done What testing was considered but not performed or refused? (CT, X-rays, U/S, labs)? Why? @ -xrays of chest and hip but these studies were done yesterday What meds were considered but not given or refused? Why? @ -None Did you discuss the management of the patient with other professionals (professionals i.e. , PA, ASSISTANT ASSOCIATE FULL PROFESSOR, lab, RT, psych nurse, psychiatric social worker supervisor, isolation washer, teacher, driver license reviewing officer, human services case manager)? Give summary @ -Dr. Ruffin who will admit the patient Was smoking cessation discussed for >3mins.? @ -No Was critical care preformed (if so, how long)? @ -No Were there social determinants of health that impacted care today? How? (Homelessness, low income, unemployed, alcoholism, drug addiction, transportation, low edu. Level, literacy, decrease access to med. care, [facility], rehab)? @ -No Was there de-escalation of care discussed even if they declined (Discuss DNR or withdrawal of care, Hospice)? DNR status @ -No What co-morbidities impacted this encounter? (DM, HTN, Smoking, COPD, CAD, Cancer, CVA, ARF, Chemo, Hep., AIDS, mental health diagnosis, sleep apnea, morbid obesity)? @ -CVA Was patient admitted / discharged? Hospital course, mention meds given and route, prescriptions, significant lab abnormalities, going to OR and other pertinent info. @ -Upon arrival patient was placed into room 17. A thorough history and physical exams performed. He does have a 103 fever. I reviewed his hip and chest x-ray from yesterday. He was diagnosed with a urinary tract infection and given 1 g of Rocephin. He is additionally given Augmentin at home. Urinalysis demonstrated some leukocyte esterase however no bacteria. I did look for other sources of infection. Viral swab is negative here and laboratory studies are within normal limits. Patient does have mobility of his right hip without pain. Sacral wound appears unchanged. This is discussed with the patient. Patient will be admitted for fever of unknown location. Spoke with Dr. Ruffin and questioned whether I should consult orthopedics. She states that she will evaluate the patient. Patient remained in stable condition awaiting a bed Undiagnosed new problem with uncertain prognosis? @ -yes Drug Therapy requiring intensive monitoring for toxicity (Heparin, Nitro, Insulin, Cardizem)? @ -No Were any procedures done? @ -No Diagnosis/symptom? @ -acute pyrexia Acute, or Chronic, or Acute on Chronic? @ -acute Uncomplicated (without systemic symptoms) or Complicated (systemic symptoms)? @ -complicated Side effects of treatment? @ -No Exacerbation, Progression, or Severe Exacerbation? @ -No Poses a threat to life or bodily function? How? (Chest pain, [place], [place], pneumonia, PE, COPD, DKA, ARF, appy, cholecystitis, CVA, Diverticulitis, Homicidal, Suicidal, threat to staff... and all critical care pts) @ -possibly - source of infection must be determined as infection could progress if not treated - Lab Data Result diagrams: 02/20/23 06:13 02/20/23 06:13 Lab Results 02/17/23 02/17/23 02/17/23 Range/Units 04:59 04:59 04:59 WBC 6.9 (3.8-10.6) k/uL RBC 4.11 L (4.30-5.90) m/uL Hgb 10.2 L (13.0-17.5) gm/dL Hct 33.2 L (39.0-53.0) % MCV 80.7 (80.0-100.0) fL MCH 24.9 L (25.0-35.0) pg MCHC 30.9 L (31.0-37.0) g/dL RDW 16.6 H (11.5-15.5) % Plt Count 258 (150-450) k/uL MPV 9.5 Neutrophils % 74 % Lymphocytes % 6 % Monocytes % 13 % Eosinophils % 3 % Basophils % 0 % Neutrophils # 5.1 (1.3-7.7) k/uL Lymphocytes # 0.4 L (1.0-4.8) k/uL Monocytes # 0.9 (0-1.0) k/uL Eosinophils # 0.2 (0-0.7) k/uL Basophils # 0.0 (0-0.2) k/uL Anisocytosis Slight ESR (0-15) mm/hr PT 12.6 H (9.0-12.0) sec INR 1.2 H (<1.2) APTT 30.8 H (22.0-30.0) sec Sodium (137-145) mmol/L Potassium (3.5-5.1) mmol/L Chloride (98-107) mmol/L Carbon Dioxide (22-30) mmol/L Anion Gap mmol/L BUN (9-20) mg/dL Creatinine (0.66-1.25) mg/dL Est GFR (CKD-EPI)AfAm (>60 ml/min/1.73 sqM) Est GFR (CKD-EPI)NonAf (>60 ml/min/1.73 sqM) Glucose (74-99) mg/dL Plasma Lactic Acid Jason (0.7-2.0) mmol/L Calcium (8.4-10.2) mg/dL Total Bilirubin (0.2-1.3) mg/dL AST (17-59) U/L ALT (4-49) U/L Alkaline Phosphatase (38-126) U/L C-Reactive Protein (<1.0) mg/dL Total Protein (6.3-8.2) g/dL Albumin (3.5-5.0) g/dL Lipase (23-300) U/L Urine Color Light Yellow Urine Appearance Clear (Clear) Urine pH 7.0 (5.0-8.0) Ur Specific [place] 1.010 (1.001-1.035) Urine Protein 1+ H (Negative) Urine Glucose (UA) Negative (Negative) Urine Ketones Negative (Negative) Urine Blood Negative (Negative) Urine Nitrite Negative (Negative) Urine Bilirubin Negative (Negative) Urine Urobilinogen <2.0 (<2.0) mg/dL Ur Leukocyte Esterase Negative (Negative) Urine RBC 1 (0-5) /hpf Urine WBC 1 (0-5) /hpf Ur Squamous Epith Cells <1 (0-4) /hpf Influenza Type A (PCR) (Not Detectd) Influenza Type B (PCR) (Not Detectd) RSV (PCR) (Not Detectd) SARS-CoV-2 (PCR) (Not Detectd) 02/17/23 02/17/23 02/17/23 Range/Units 04:59 04:59 04:59 WBC (3.8-10.6) k/uL RBC (4.30-5.90) m/uL Hgb (13.0-17.5) gm/dL Hct (39.0-53.0) % MCV (80.0-100.0) fL MCH (25.0-35.0) pg MCHC (31.0-37.0) g/dL RDW (11.5-15.5) % Plt Count (150-450) k/uL MPV Neutrophils % % Lymphocytes % % Monocytes % % Eosinophils % % Basophils % % Neutrophils # (1.3-7.7) k/uL Lymphocytes # (1.0-4.8) k/uL Monocytes # (0-1.0) k/uL Eosinophils # (0-0.7) k/uL Basophils # (0-0.2) k/uL Anisocytosis ESR 36 H (0-15) mm/hr PT (9.0-12.0) sec INR (<1.2) APTT (22.0-30.0) sec Sodium 137 (137-145) mmol/L Potassium 4.4 (3.5-5.1) mmol/L Chloride 102 (98-107) mmol/L Carbon Dioxide 26 (22-30) mmol/L Anion Gap 9 mmol/L BUN 22 H (9-20) mg/dL Creatinine 1.83 H (0.66-1.25) mg/dL Est GFR (CKD-EPI)AfAm 40 (>60 ml/min/1.73 sqM) Est GFR (CKD-EPI)NonAf 34 (>60 ml/min/1.73 sqM) Glucose 127 H (74-99) mg/dL Plasma Lactic Acid Jason 0.7 (0.7-2.0) mmol/L Calcium 8.1 L (8.4-10.2) mg/dL Total Bilirubin 0.6 (0.2-1.3) mg/dL AST 22 (17-59) U/L ALT 17 (4-49) U/L Alkaline Phosphatase 50 (38-126) U/L C-Reactive Protein (<1.0) mg/dL Total Protein 7.4 (6.3-8.2) g/dL Albumin 3.4 L (3.5-5.0) g/dL Lipase 12 L (23-300) U/L Urine Color Urine Appearance (Clear) Urine pH (5.0-8.0) Ur Specific [place] (1.001-1.035) Urine Protein (Negative) Urine Glucose (UA) (Negative) Urine Ketones (Negative) Urine Blood (Negative) Urine Nitrite (Negative) Urine Bilirubin (Negative) Urine Urobilinogen (<2.0) mg/dL Ur Leukocyte Esterase (Negative) Urine RBC (0-5) /hpf Urine WBC (0-5) /hpf Ur Squamous Epith Cells (0-4) /hpf Influenza Type A (PCR) (Not Detectd) Influenza Type B (PCR) (Not Detectd) RSV (PCR) (Not Detectd) SARS-CoV-2 (PCR) (Not Detectd) 02/17/23 02/17/23 Range/Units 04:59 05:29 WBC (3.8-10.6) k/uL RBC (4.30-5.90) m/uL Hgb (13.0-17.5) gm/dL Hct (39.0-53.0) % MCV (80.0-100.0) fL MCH (25.0-35.0) pg MCHC (31.0-37.0) g/dL RDW (11.5-15.5) % Plt Count (150-450) k/uL MPV Neutrophils % % Lymphocytes % % Monocytes % % Eosinophils % % Basophils % % Neutrophils # (1.3-7.7) k/uL Lymphocytes # (1.0-4.8) k/uL Monocytes # (0-1.0) k/uL Eosinophils # (0-0.7) k/uL Basophils # (0-0.2) k/uL Anisocytosis ESR (0-15) mm/hr PT (9.0-12.0) sec INR (<1.2) APTT (22.0-30.0) sec Sodium (137-145) mmol/L Potassium (3.5-5.1) mmol/L Chloride (98-107) mmol/L Carbon Dioxide (22-30) mmol/L Anion Gap mmol/L BUN (9-20) mg/dL Creatinine (0.66-1.25) mg/dL Est GFR (CKD-EPI)AfAm (>60 ml/min/1.73 sqM) Est GFR (CKD-EPI)NonAf (>60 ml/min/1.73 sqM) Glucose (74-99) mg/dL Plasma Lactic Acid Jason (0.7-2.0) mmol/L Calcium (8.4-10.2) mg/dL Total Bilirubin (0.2-1.3) mg/dL AST (17-59) U/L ALT (4-49) U/L Alkaline Phosphatase (38-126) U/L C-Reactive Protein 8.1 H (<1.0) mg/dL Total Protein (6.3-8.2) g/dL Albumin (3.5-5.0) g/dL Lipase (23-300) U/L Urine Color Urine Appearance (Clear) Urine pH (5.0-8.0) Ur Specific [place] (1.001-1.035) Urine Protein (Negative) Urine Glucose (UA) (Negative) Urine Ketones (Negative) Urine Blood (Negative) Urine Nitrite (Negative) Urine Bilirubin (Negative) Urine Urobilinogen (<2.0) mg/dL Ur Leukocyte Esterase (Negative) Urine RBC (0-5) /hpf Urine WBC (0-5) /hpf Ur Squamous Epith Cells (0-4) /hpf Influenza Type A (PCR) Not Detected (Not Detectd) Influenza Type B (PCR) Not Detected (Not Detectd) RSV (PCR) Not Detected (Not Detectd) SARS-CoV-2 (PCR) Not Detected (Not Detectd) Disposition Clinical Impression: Fever, Right hip pain, Stage III pressure ulcer of sacral region Disposition: ADMITTED IP TO THIS HOSP Condition: Stable Is patient prescribed a controlled substance at d/c from ED?: No Time of Disposition: 08:33 Decision to Admit Reason: Admit from EC Decision Date: 02/17/23 Decision Time: 08:33
[2023-02-17] MEDS ORDERED: SODIUM CHLORIDE 0.9% 1,000 ML IV SCH (08:45)
[2023-02-17] MEDS ORDERED: SENNOSIDES 8.6 MG TAB PO PRN (11:15)
--- NOTE | 2023-02-17 12:59 | US ---
EXAMINATION TYPE: US venous doppler duplex LE DATE OF EXAM: 02/17/2023 12:29 PM COMPARISON: CLINICAL INDICATION: Male, 77 years old with history of RLE pain; Chronic DVT's. On blood thinners. SIDE PERFORMED: Bilateral TECHNIQUE: The lower extremity deep venous system is examined utilizing real time linear array sonog gurdeep with graded compression, doppler sonography and color-flow sonography. VESSELS IMAGED: Common Femoral Vein Deep Femoral Vein Greater Saphenous Vein * Femoral Vein Popliteal Vein Small Saphenous Vein * Proximal Calf Veins (* superficial vessels) Right Leg: Suboptimal exam due to Femoral artery shadowing. Appears positive for DVT in distal femo ral vein. Duplicate distal FV visualized with vascular flow. Thickened vein jeffery seen. Left Leg: Negative for DVT IMPRESSION: 1. Suboptimal right lower extremity study however there appears to be DVT within the distal right fem oral vein. 2. No evidence of DVT left lower extremity.
--- NOTE | 2023-02-17 13:24 | P.HPIM ---
History of Present Illness H&P Date: 02/17/23 Patient is a 77-year-old male with PMH of diabetes mellitus, CKD stage III, hypertension, history of DVT, history of TIA is sent by [facility] program for fever of 103F. Patient was seen and evaluated in the ED on 02/16 after mechanical fall. He had complaints of right thigh pain. He denied any syncopal episode or lightheadedness. He denied any head trauma. Hip and CXR was unrevealing, patient was subsequently discharged home from the ED. He returns back to the ED after staffing at [facility] realized he had a high fever of 103F. Patient currently reports pain in his right thigh which has prevented him from ambulating. He reports using a condom catheter at bedtime to help him from soiling himself. He denies any dysuria or abdominal pain. No diarrhea. No cough. He denies any headache, lower extremity edema, nausea or vomiting, chest pain, shortness of breath, palpitations. No changes in appetite or weight. He denies any dizziness, numbness/weakness/tingling of the extremities. In the ED, he was noted to be tachycardic with heart rate of 103 and T-max 103 Fahrenheit. Vital signs are otherwise stable. CBC showed hemoglobin of 10.2. Coagulation panel showed INR 1.2. BMP showed BUN of 22, creatinine 1.83, glucose 127, calcium 8.1. Lactic acid negative. Lipase was negative. COVID-19, RSV, influenza negative. Patient is admitted under observation status for workup of fever. Pertinent positives and negatives as discussed in HPI, a complete review of systems was performed and all other systems are negative. General: non toxic, no distress, appears at stated age Derm: warm, dry Head: atraumatic, normocephalic, symmetric Eyes: EOMI, no lid lag, anicteric sclera Cardiovascular: S1S2 reg, no murmur Lungs: CTA bilateral, no rhonchi, no rales , no accessory muscle use Abdominal: soft, nontender to palpation, no guarding, no appreciable organomegaly Ext: no gross muscle atrophy, no edema, no contractures, right thigh tenderness to palpation with no bruising or swelling, full ROM in the right knee Neuro: no focal neuro deficits Psych: Alert, oriented, appropriate affect Assessment and Plan: Fever Supratherapeutic INR Chronic condition: normocytic anemia, diabetes mellitus, CKD stage III, hypertension, history of DVT, history of TIA Based on my assessment of this patient, this patient meets a moderate complexity level of care. Patient has a new diagnosis of fever with uncertain prognosis. He has had a Tmax of 103F in the ED. This is of unknown significance. Blood culture is ordered. UA with reflex to UCx ordered. I will order procalcitonin and ESR/CRP. Venous doppler ordered to evaluate RLE DVT. He will hold antibiotics now as there is no source of identifiable infection. Daughter is his decision maker if he can't make decisions for himself. FULL CODE. Eliquis for DVT prophylaxis. I have reviewed the following [employer] consultant notes: None. I have reviewed the results of the following tests: CBC showed hemoglobin of 10.2. Coagulation panel showed INR 1.2. BMP showed BUN of 22, creatinine 1.83, glucose 127, calcium 8.1. Lactic acid negative. Lipase was negative. COVID-19, RSV, influenza negative. I have ordered the following tests: ESR. CRP. Procalcitonin. I have discussed the care of this patient with the following independent historian: I have independently interpreted the following test below: I have discussed the management of this patient with the following physician: This patient has a moderate risk of morbidity due to the following reasons: Workup for Tmax of 103F. Past Medical History Past Medical History: CVA/TIA, Diabetes Mellitus, Deep Vein Thrombosis (DVT), Hypertension, Osteoarthritis (OA) Additional Past Medical History / Comment(s): wound center patient, states has DVT x3 in rt leg, past hx of diabetes and HTN, no longer requires rx since weig ht loss. states TIA in 2010 residual muscle weakness in rt leg, wears brace rt leg, uti . 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, pacemaker/ACID placed 2017 History of Any Multi-Drug Resistant Organisms: MRSA Date of last positivie culture/infection: 01/07/22 MDRO Source:: MRSA TOE Past Surgical History: Back Surgery, Hernia Repair, Orthopedic Surgery, Pacemaker Additional Past Surgical History / Comment(s): cervical fusion, right hip replacement, cataract surgery, penile implant Past Anesthesia/Blood Transfusion Reactions: No Reported Reaction Type of Cardiac Device: Permanent Pacemaker, AICD, Unknown Device Placement Date:: May 2018 Past Psychological History: No Psychological Hx Reported Smoking Status: Never smoker Past Alcohol Use History: None Reported Past Drug Use History: None Reported - Past Family History Mother Family Medical History: Cancer Father Family Medical History: Cancer, Coronary Artery Disease (CAD) Medications and Allergies Home Medications Medication Instructions Recorded Confirmed Type Atorvastatin [Lipitor] 10 mg PO HS 10/29/18 02/17/23 History Magnesium Oxide 400 mg PO DAILY 07/07/21 02/17/23 History Metoprolol Tartrate [Lopressor] 50 mg PO DAILY 07/07/21 02/17/23 History Tamsulosin [Flomax] 0.4 mg PO BID #0 capsule 09/13/21 02/17/23 Rx Apixaban [Eliquis] 2.5 mg PO BID 11/11/22 02/17/23 History Gabapentin [Neurontin] 300 mg PO BID 11/11/22 02/17/23 History L.acidoph,Paracasei, B.lactis 1 cap PO DAILY 11/11/22 02/17/23 History [Probiotic] Sennosides [Senokot] 8.6 mg PO HS PRN 11/11/22 02/17/23 History Calcium Carbonate [Calcium] 600 mg PO BID 01/10/23 02/17/23 History Ketoconazole 2% Shampoo [Nizoral] 1 applic TOPICAL DIRECTED 01/10/23 02/17/23 History Multivit-Mins/Iron/Folic/Lycop 1 tab PO DAILY 01/10/23 02/17/23 History [Centrum Men's Tablet] Neomycin/Bacitracin/Polymyxinb 1 applic TOPICAL BID 01/10/23 02/17/23 History [Neosporin Ointment] methocarbamoL 1,000 mg PO TID 01/10/23 02/17/23 History oxyCODONE-APAP 7.5-325MG [Percocet 1 tab PO 5XD PRN 01/10/23 02/17/23 History 7.5-325 mg] amLODIPine [Norvasc] 10 mg PO DAILY #30 tab 01/19/23 02/17/23 Rx Amoxic-Pot Clav 875-125Mg 1 tab PO BID 7 Days #14 tab 02/16/23 02/17/23 Rx [Augmentin 875-125] Allergies Allergy/AdvReac Type Severity Reaction Status Date / Time ciprofloxacin [From Cipro] Allergy Unknown Verified 02/17/23 10:34 doxazosin Allergy Unknown Verified 02/17/23 10:34 Physical Exam Vitals: Vital Signs Temp Pulse Resp BP Pulse Ox 02/17/23 09:49 88 16 155/71 96 02/17/23 08:34 97.6 F 91 16 170/86 95 02/17/23 05:43 98.3 F 02/17/23 04:12 103 F H 103 H 20 150/71 94 L Intake and Output 02/16/23 02/17/23 02/17/23 22:59 06:59 14:59 Other: Voiding Method Diaper Weight 81.647 kg Results CBC & Chem 7: 02/17/23 04:59 02/17/23 04:59 Labs: Abnormal Lab Results - Last 24 Hours (Table) 02/17/23 02/17/23 02/17/23 Range/Units 04:59 04:59 04:59 RBC 4.11 L (4.30-5.90) m/uL Hgb 10.2 L (13.0-17.5) gm/dL Hct 33.2 L (39.0-53.0) % MCH 24.9 L (25.0-35.0) pg MCHC 30.9 L (31.0-37.0) g/dL RDW 16.6 H (11.5-15.5) % Lymphocytes # 0.4 L (1.0-4.8) k/uL ESR (0-15) mm/hr PT 12.6 H (9.0-12.0) sec INR 1.2 H (<1.2) APTT 30.8 H (22.0-30.0) sec BUN 22 H (9-20) mg/dL Creatinine 1.83 H (0.66-1.25) mg/dL Glucose 127 H (74-99) mg/dL Calcium 8.1 L (8.4-10.2) mg/dL C-Reactive Protein (<1.0) mg/dL Albumin 3.4 L (3.5-5.0) g/dL Lipase 12 L (23-300) U/L 02/17/23 02/17/23 Range/Units 04:59 04:59 RBC (4.30-5.90) m/uL Hgb (13.0-17.5) gm/dL Hct (39.0-53.0) % MCH (25.0-35.0) pg MCHC (31.0-37.0) g/dL RDW (11.5-15.5) % Lymphocytes # (1.0-4.8) k/uL ESR 36 H (0-15) mm/hr PT (9.0-12.0) sec INR (<1.2) APTT (22.0-30.0) sec BUN (9-20) mg/dL Creatinine (0.66-1.25) mg/dL Glucose (74-99) mg/dL Calcium (8.4-10.2) mg/dL C-Reactive Protein 8.1 H (<1.0) mg/dL Albumin (3.5-5.0) g/dL Lipase (23-300) U/L
[2023-02-17] MEDS: oxyCODONE-APAP 7.5-325MG 1 EACH TAB PO PRN ×2 (13:33→20:31)
[2023-02-17 14:16] LABS: Appearance,Urine Clear (Clear); Bilirubin,Urine Negative (Negative); Blood,Urine Negative (Negative); Color,Urine Light Yellow; Glucose,Urine (UA) Negative (Negative); Ketones,Urine Negative (Negative); Leukocyte Esterase,Urine Negative (Negative); Nitrite,Urine Negative (Negative); Protein,Urine 1+ (Negative); RBC,Urine 1 /hpf (0-5); Squamous Epithelial Cell,Urine <1 /hpf (0-4); Urobilinogen,Urine <2.0 mg/dL (<2.0); WBC,Urine 1 /hpf (0-5)
[2023-02-17] MEDS: GABAPENTIN 300 MG CAP PO SCH (20:30)
[2023-02-17] MEDS: APIXABAN 2.5 MG TABLET PO SCH (20:31)
[2023-02-17] MEDS: ATORVASTATIN 10 MG TAB PO SCH (20:31)
[2023-02-17] MEDS: TAMSULOSIN 0.4 MG CAP.ER.24H PO SCH (20:31)
[2023-02-18] MEDS: oxyCODONE-APAP 7.5-325MG 1 EACH TAB PO PRN ×2 (07:56→20:11)
[2023-02-18 08:49] LABS: African American GFR (CKD) 53.2 (60.0-200.0); BUN/Creat Ratio 12.64 Ratio (12.00-20.00); Blood Urea Nitrogen 18.2 mg/dL (9.0-27.0); Calcium 8.1 mg/dL (8.7-10.3); Carbon Dioxide 23.2 mmol/L (20.0-27.5); Non-African American GFR(CKD) 45.9 (60.0-200.0); Potassium 4.1 mmol/L (3.5-5.5)
[2023-02-18 09:01] LABS: HCT 32.1 % (39.6-50.0); HGB 9.8 g/dL (13.0-17.0); MCH 25.7 pg (27.0-32.0); MCHC 30.5 g/dL (32.0-37.0); MCV 84.3 fL (80.0-97.0); Mean Platelet Volume 10.9 fL (9.5-12.2); NRBC Per 100 WBC 0 /100 WBCS (0.0-0.0); Platelet Count 255 X 10*3/uL (140-440); RBC 3.81 X 10*6/uL (4.40-5.60); RDW 17.7 % (11.5-14.5)
[2023-02-18] MEDS: amLODIPine 10 MG TAB PO SCH (09:22)
[2023-02-18] MEDS: METOPROLOL TARTRATE 50 MG TAB PO SCH (09:22)
[2023-02-18] MEDS: GABAPENTIN 300 MG CAP PO SCH ×2 (09:22→20:13)
[2023-02-18] MEDS: APIXABAN 2.5 MG TABLET PO SCH ×2 (09:23→20:13)
[2023-02-18] MEDS: TAMSULOSIN 0.4 MG CAP.ER.24H PO SCH ×2 (09:23→20:13)
--- NOTE | 2023-02-18 09:51 | XR ---
EXAMINATION TYPE: XR sacrum coccyx DATE OF EXAM: 02/18/2023 8:38 AM INDICATION: Patient age:Male; 77 years old; Reason for study: Fever, wound; COMPARISON: None TECHNIQUE: The sacrum and coccyx was examined in frontal and lateral projections. FINDINGS: No evidence of osseous erosion definitively visualized. There is suspected evidence of development eng hugo osteitis. There is no evidence of fracture or dislocation. There is no soft tissue abnormality. No abnormal calcifications are present. Multilevel degenerative changes of the lower spine. Partially visualized right hip arthroplasty. IMPRESSION: No evidence of osseous erosion to suggest ostium myelitis however evaluation is somewhat limited. Con cylinder dyer CT as clinically warranted.
[2023-02-18 12:01] LABS: Basophils # (A) 0.01 X 10*3/uL (0.00-0.10); Basophils % (A) 0.1 %; Eosinophils # (A) 0.34 X 10*3/uL (0.04-0.35); Eosinophils % (A) 4.1 %; Immature Grans, Automated 0.5 %; Lymphocytes # (A) 1.14 X 10*3/uL (0.90-5.00); Lymphocytes % (A) 13.9 %; Monocytes # (A) 2.21 X 10*3/uL (0.20-1.00); Neutrophils # (A) 4.46 X 10*3/uL (1.80-7.70); Neutrophils % (A) 54.4 %
[2023-02-18 12:02] LABS: RBC Morphology NORMAL
[2023-02-18] MEDS ORDERED: VANCOMYCIN IV PER PHARMACY 1 EACH MISC MISCELLANE PRN (12:02)
--- NOTE | 2023-02-18 12:42 | P.PN ---
Subjective Progress Note Date: 02/18/23 Patient is a 77-year-old male with PMH of diabetes mellitus, CKD stage III, hypertension, history of DVT, history of TIA is sent by [employer] program for fever of 103F. Patient was seen and evaluated in the ED on 02/16 after mechanical fall. He had complaints of right thigh pain. He denied any syncopal episode or lightheadedness. He denied any head trauma. Hip and CXR was unrevealing, patient was subsequently discharged home from the ED. He returns back to the ED after staffing at [facility] realized he had a high fever of 103F. Patient currently reports pain in his right thigh which has prevented him from ambulating. He reports using a condom catheter at bedtime to help him from soiling himself. He denies any dysuria or abdominal pain. No diarrhea. No cough. He denies any headache, lower extremity edema, nausea or vomiting, chest pain, shortness of breath, palpitations. No changes in appetite or weight. He denies any dizziness, numbness/weakness/tingling of the extremities. In the ED, he was noted to be tachycardic with heart rate of 103 and T-max 103 Fahrenheit. Vital signs are otherwise stable. CBC showed hemoglobin of 10.2. Coagulation panel showed INR 1.2. BMP showed BUN of 22, creatinine 1.83, glucose 127, calcium 8.1. Lactic acid negative. Lipase was negative. COVID-19, RSV, influenza negative. Patient is admitted under observation status for workup of fever. 02/18 Patient was seen and examined. Patient reports no complaints. Tmax 100.3F over the past 24H. Patient reports he's had a sacral wound that has been managed at his SNF. CBC shows Hg 9.8. ESR elevated at 36 and CRP elevated at 8.1. Procalcitonin elevated at 0.28. BMP shows GFR of 45.9. General: non toxic, no distress, appears at stated age Derm: warm, dry Head: atraumatic, normocephalic, symmetric Eyes: EOMI, no lid lag, anicteric sclera Cardiovascular: S1S2 reg, no murmur Lungs: CTA bilateral, no rhonchi, no rales , no accessory muscle use Ext: no gross muscle atrophy, no edema, no contractures, right thigh tenderness to palpation with no bruising or swelling, full ROM in the right knee Neuro: no focal neuro deficits Psych: Alert, oriented, appropriate affect Sacral wound with maceration. Assessment and Plan: Fever Sacral wound Supratherapeutic INR Chronic condition: normocytic anemia, diabetes mellitus, CKD stage III, hypertension, history of DVT, history of TIA Based on my assessment of this patient, this patient meets a high complexity level of care. Patient has a new diagnosis of fever with uncertain prognosis. He has had a Tmax of 103F in the ED. This is of unknown significance. Procalcitonin, ESR and CRP elevated. UA negative. Blood culture is ordered. Started on Vancomycin 1500 IV QD by ID. Wound culture collected. Daughter is his decision maker if he can't make decisions for himself. FULL CODE. Eliquis for DVT prophylaxis. I have reviewed the following senior [employer] consultant notes: I have reviewed the results of the following tests: CBC shows Hg 9.8. ESR elevated at 36 and CRP elevated at 8.1. Procalcitonin elevated at 0.28. BMP shows GFR of 45.9. I have ordered the following tests: Sacral Xray. BMP ordered for tomorrow morning to evaluate renal function. Agree with wound culture. I have discussed the care of this patient with the following independent historian: I have independently interpreted the following test below: I have discussed the management of this patient with the following physician: The case is discussed with Dr. Lynne. Possible source from the sacral wound. Collect cultures. Switch Rocephin to Vancomycin. This patient has a high risk of morbidity due to the following reasons: Patient is currently on Vancomycin IV which is nephrotoxic and required daily renal function monitoring. Objective - Vital Signs Vital signs: Vital Signs Temp 98.4 F 02/18/23 07:00 Pulse 78 02/18/23 07:00 Resp 17 02/18/23 07:00 BP 171/73 02/18/23 07:00 Pulse Ox 95 02/18/23 07:00 FiO2 Intake & Output 02/17/23 02/18/23 02/18/23 18:59 06:59 18:59 Intake Total 118 Output Total 761 1000 Balance -761 -1000 118 Weight 81.647 kg Intake: Oral 118 Output: Urine 1000 Straight 500 Post Void Residual 761 Other: Voiding Method Urinal Urinal Diaper Diaper # Voids 1 1 - Labs CBC & Chem 7: 05/23/23 05:56 02/18/23 05:56 Labs: Abnormal Lab Results - Last 24 Hours (Table) 02/17/23 02/17/23 02/17/23 Range/Units 04:59 04:59 09:50 RBC (4.40-5.60) X 10*6/uL Hgb (13.0-17.0) g/dL Hct (39.6-50.0) % MCH (27.0-32.0) pg MCHC (32.0-37.0) g/dL RDW (11.5-14.5) % Monocytes # (0.20-1.00) X 10*3/uL ESR 36 H (0-15) mm/hr Est GFR (CKD-EPI)AfAm (60.0-200.0) Est GFR (CKD-EPI)NonAf (60.0-200.0) Calcium (8.7-10.3) mg/dL Procalcitonin 0.28 H (0.02-0.09) ng/mL Urine Protein 1+ H (Negative) 02/18/23 02/18/23 Range/Units 05:56 05:56 RBC 3.81 L (4.40-5.60) X 10*6/uL Hgb 9.8 L (13.0-17.0) g/dL Hct 32.1 L (39.6-50.0) % MCH 25.7 L (27.0-32.0) pg MCHC 30.5 L (32.0-37.0) g/dL RDW 17.7 H (11.5-14.5) % Monocytes # 2.21 H (0.20-1.00) X 10*3/uL ESR (0-15) mm/hr Est GFR (CKD-EPI)AfAm 53.2 L (60.0-200.0) Est GFR (CKD-EPI)NonAf 45.9 L (60.0-200.0) Calcium 8.1 L (8.7-10.3) mg/dL Procalcitonin (0.02-0.09) ng/mL Urine Protein (Negative)
[2023-02-18] MEDS: VANCOMYCIN 1,500 MG in SODIUM CHLORIDE 0.9% 500 ML 500 ML IVPB SCH (14:34)
--- NOTE | 2023-02-18 19:27 | P.CONS ---
History of Present Illness - Reason for Consult Consult date: 02/18/23 Fever Requesting physician: Luis Fernando Nolasco - Chief Complaint Fever and pain to the right thigh x 1 day - History of Present Illness Patient is a 77-year-old male with a past medical history significant for hypertension diabetes mellitus chronic kidney disease patient did have a history of left fifth toe infection with MRSA status post amputation on his last admission and that wound has healed apparently the patient was recently admitted in the ER on 02/17/2020 to the however the patient did have a mechanical fall patient mentioned he was trying to get to his bed from his chair when he fell down and fell on his right thigh patient was evaluated in the ER and did have x- rays those was negative for any fracture and the patient was subsequently [facility] patient was noticed to have a fever for the patient was sent to the ER for further evaluation patient denies any headache or URI symptoms he denies any chest pain shortness of breath or cough no nausea vomiting no abdominal pain or any diarrhea has been complaining of mostly pain to the right thigh area right lateral thigh with the patient currently do not have any bruising or any redness pain is mostly with the pressure patient also have sacral pressure ulcer currently do not have any symptoms referable to it and no urinary symptoms and no diarrhea patient on presentation to hospital have fever of 103 F he did have tachycardia of heart rate of 91 patient did have a normal white count BUN/creatinine was mildly elevated urine has been negative influenza RSV and COVID testing was negative patient did have a venous Doppler negative for DVT x-ray of the sacrum and the coccyx area did not show any bony erosion infectious he was consulted because of his fever and need for antibiotic therapy Review of Systems Positive point and negatives has been mentioned in the HPI, complete review of systems was performed and all other systems are negative Past Medical History Past Medical History: CVA/TIA, Diabetes Mellitus, Deep Vein Thrombosis (DVT), Hypertension, Osteoarthritis (OA) Additional Past Medical History / Comment(s): wound center patient, states has DVT x3 in rt leg, past hx of diabetes and HTN, no longer requires rx since weight loss. states TIA in 2010 residual muscle weakness in rt leg, wears brace rt leg, uti . 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, pacemaker/ACID placed 2017 History of Any Multi-Drug Resistant Organisms: MRSA Year Discovered:: 01/07/22 MDRO Source:: MRSA TOE Past Surgical History: Back Surgery, Hernia Repair, Orthopedic Surgery, Pacemaker Additional Past Surgical History / Comment(s): cervical fusion, right hip replacement, cataract surgery, penile implant Past Anesthesia/Blood Transfusion Reactions: No Reported Reaction Type of Cardiac Device: Permanent Pacemaker, AICD, Unknown Device Placement Date:: May 2018 Past Psychological History: No Psychological Hx Reported Smoking Status: Never smoker Past Alcohol Use History: None Reported Past Drug Use History: None Reported - Past Family History Mother Family Medical History: Cancer Father Family Medical History: Cancer, Coronary Artery Disease (CAD) Medications and Allergies Home Medications Medication Instructions Recorded Confirmed Type Atorvastatin [Lipitor] 10 mg PO HS 10/29/18 02/17/23 History Magnesium Oxide 400 mg PO DAILY 07/07/21 02/17/23 History Metoprolol Tartrate [Lopressor] 50 mg PO DAILY 07/07/21 02/17/23 History Tamsulosin [Flomax] 0.4 mg PO BID #0 capsule 09/13/21 02/17/23 Rx Apixaban [Eliquis] 2.5 mg PO BID 11/11/22 02/17/23 History Gabapentin [Neurontin] 300 mg PO BID 11/11/22 02/17/23 History L.acidoph,Paracasei, B.lactis 1 cap PO DAILY 11/11/22 02/17/23 History [Probiotic] Sennosides [Senokot] 8.6 mg PO HS PRN 11/11/22 02/17/23 History Calcium Carbonate [Calcium] 600 mg PO BID 01/10/23 02/17/23 History Ketoconazole 2% Shampoo [Nizoral] 1 applic TOPICAL DIRECTED 01/10/23 02/17/23 History Multivit-Mins/Iron/Folic/Lycop 1 tab PO DAILY 01/10/23 02/17/23 History [Centrum Men's Tablet] Neomycin/Bacitracin/Polymyxinb 1 applic TOPICAL BID 01/10/23 02/17/23 History [Neosporin Ointment] methocarbamoL 1,000 mg PO TID 01/10/23 02/17/23 History oxyCODONE-APAP 7.5-325MG [Percocet 1 tab PO 5XD PRN 01/10/23 02/17/23 History 7.5-325 mg] amLODIPine [Norvasc] 10 mg PO DAILY #30 tab 01/19/23 02/17/23 Rx Doxycycline [Vibramycin] 100 mg PO BID 14 Days #28 capsule 02/20/23 Rx Allergies Allergy/AdvReac Type Severity Reaction Status Date / Time ciprofloxacin [From Cipro] Allergy Unknown Verified 02/17/23 10:34 doxazosin Allergy Unknown Verified 02/17/23 10:34 Physical Exam Vitals: Vital Signs Temp Pulse Pulse Resp BP BP Pulse Ox 02/18/23 07:00 98.4 F 78 17 171/73 95 02/18/23 02:25 98.0 F 87 17 139/78 95 02/17/23 21:30 98.7 F 91 18 148/80 95 02/17/23 19:49 86 16 168/86 98 02/17/23 17:33 98.4 F 90 18 138/76 97 02/17/23 16:00 82 18 156/84 98 02/17/23 15:00 141/70 02/17/23 13:38 100.3 F H 98 18 168/84 96 Intake and Output 02/17/23 02/18/23 02/18/23 22:59 06:59 14:59 Intake Total 118 Output Total 1261 500 Balance -1261 -500 118 Intake: Oral 118 Output: Urine 500 500 Straight 500 Post Void Residual 761 Other: Voiding Method Urinal Urinal Urinal Diaper Diaper Diaper # Voids 1 1 GENERAL DESCRIPTION: Elderly male lying in bed, no distress. No tachypnea or accessory muscle of respiration use. HEENT: Shows Pallor , no scleral icterus. Oral mucous membrane is dry. No pharyngeal erythema or thrush NECK: Trachea central, no thyromegaly. LUNGS: Unlabored breathing. Clear to auscultation anteriorly. No wheeze or crackle. HEART: S1, S2, regular rate and rhythm. No loud murmur ABDOMEN: Soft, no tenderness , guarding or rigidity, no organomegaly EXTREMITIES: No edema of feet. SKIN: No rash, no masses palpable. Patient did have a stage II sacral pressure ulcer with some ulceration and surrounding redness NEUROLOGICAL: The patient is awake, alert, oriented x3, mood and affect normal. Results CBC & Chem 7: 02/20/23 06:13 02/20/23 06:13 Labs: Abnormal Lab Results - Last 24 Hours (Table) 02/17/23 02/17/23 02/17/23 Range/Units 04:59 04:59 09:50 RBC (4.40-5.60) X 10*6/uL Hgb (13.0-17.0) g/dL Hct (39.6-50.0) % MCH (27.0-32.0) pg MCHC (32.0-37.0) g/dL RDW (11.5-14.5) % Monocytes # (0.20-1.00) X 10*3/uL ESR 36 H (0-15) mm/hr Est GFR (CKD-EPI)AfAm (60.0-200.0) Est GFR (CKD-EPI)NonAf (60.0-200.0) Calcium (8.7-10.3) mg/dL Procalcitonin 0.28 H (0.02-0.09) ng/mL Urine Protein 1+ H (Negative) 02/18/23 02/18/23 Range/Units 05:56 05:56 RBC 3.81 L (4.40-5.60) X 10*6/uL Hgb 9.8 L (13.0-17.0) g/dL Hct 32.1 L (39.6-50.0) % MCH 25.7 L (27.0-32.0) pg MCHC 30.5 L (32.0-37.0) g/dL RDW 17.7 H (11.5-14.5) % Monocytes # 2.21 H (0.20-1.00) X 10*3/uL ESR (0-15) mm/hr Est GFR (CKD-EPI)AfAm 53.2 L (60.0-200.0) Est GFR (CKD-EPI)NonAf 45.9 L (60.0-200.0) Calcium 8.1 L (8.7-10.3) mg/dL Procalcitonin (0.02-0.09) ng/mL Urine Protein (Negative) Assessment and Plan (1) Infected pressure ulcer Current Visit: Yes Status: Acute Code(s): L89.90 - PRESSURE ULCER OF UNSPECIFIED SITE, UNSPECIFIED STAGE; L08.9 - LOCAL INFECTION OF THE SKIN AND SUBCUTANEOUS TISSUE, UNSP SNOMED Code(s): 076475648 (2) Pyrexia Current Visit: Yes Status: Acute Code(s): R50.9 - FEVER, UNSPECIFIED SNOMED Code(s): 621129481 Plan: 1patient was in the hospital with fever and this patient with the possible source to be infected sacral pressure ulcer stage II as the patient was noticed to have some maceration and surrounding redness likely from gram-positive skin rogelio patient did have a history of MRSA infection and will need to cover for it while waiting for the culture to finalize currently do not have any other obvious focus of infection lungs were clear to auscultation abdominal soft medical examination urine has been negative in the left fifth toe amputation site wound is currently healed 2-we will obtain culture from the sacral wound area 3-empirically start the patient on vancomycin pharmacy to dose We will follow on clinical condition and cultures to further adjust medication if needed Thank you for this consultation we will follow the patient along with you Time with Patient: Greater than 30
[2023-02-18] MEDS: ATORVASTATIN 10 MG TAB PO SCH (20:13)
[2023-02-19] MEDS: oxyCODONE-APAP 7.5-325MG 1 EACH TAB PO PRN ×3 (08:21→20:01)
[2023-02-19] MEDS: METOPROLOL TARTRATE 50 MG TAB PO SCH (08:26)
[2023-02-19] MEDS: amLODIPine 10 MG TAB PO SCH (08:26)
[2023-02-19] MEDS: APIXABAN 2.5 MG TABLET PO SCH ×2 (08:26→19:58)
[2023-02-19] MEDS: TAMSULOSIN 0.4 MG CAP.ER.24H PO SCH ×2 (08:27→19:58)
[2023-02-19] MEDS: GABAPENTIN 300 MG CAP PO SCH ×2 (08:27→19:58)
[2023-02-19 12:27] VITALS: BMI 21.9
[2023-02-19] MEDS: VANCOMYCIN 1,500 MG in SODIUM CHLORIDE 0.9% 500 ML 500 ML IVPB SCH (13:17)
--- NOTE | 2023-02-19 13:23 | P.PN ---
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 On today's evaluation that is 02/19/2023, the patient denies having any fever or any chills, patient is breathing comfortably on room air for chest pain or shortness of breath or cough no nausea no vomiting no abdominal pain or diarrhea Objective - Vital Signs Vital signs: Vital Signs Temp 98.1 F 02/19/23 07:00 Pulse 78 02/19/23 07:00 Resp 15 02/19/23 07:00 BP 154/64 02/19/23 07:00 Pulse Ox 94 L 02/19/23 07:00 FiO2 Intake & Output 02/18/23 02/19/23 02/19/23 18:59 06:59 18:59 Intake Total 340 100 Output Total 450 300 Balance 340 -450 -200 Intake: Oral 340 100 Output: Urine 450 300 Other: Voiding Method Urinal Urinal Urinal Diaper Diaper Diaper # Voids 1 2 # Bowel Movements 0 - Exam GENERAL DESCRIPTION: An elderly male lying in bed in no distress RESPIRATORY SYSTEM: Unlabored breathing , decreased breath sounds at bases HEART: S1 S2 regular rate and rhythm , ABDOMEN: Soft , no tenderness EXTREMITIES: No edema feet - Labs CBC & Chem 7: 02/18/23 05:56 02/18/23 05:56 Labs: Abnormal Lab Results - Last 24 Hours (Table) 02/18/23 Range/Units 05:56 Monocytes # 2.21 H (0.20-1.00) X 10*3/uL Microbiology - Last 24 Hours (Table) 02/18/23 14:57 Gram Stain - Preliminary Buttock Wound Culture - Preliminary Presumptive MRSA 02/17/23 05:02 Blood Culture - Preliminary Blood 02/17/23 04:57 Blood Culture - Preliminary Blood Assessment and Plan (1) Infected pressure ulcer Current Visit: Yes Status: Acute Code(s): L89.90 - PRESSURE ULCER OF UNSPECIFIED SITE, UNSPECIFIED STAGE; L08.9 - LOCAL INFECTION OF THE SKIN AND SUBCUTANEOUS TISSUE, UNSP SNOMED Code(s): 621569599 Plan: 1patient was in the hospital with fever and this patient with the possible source to be infected sacral pressure ulcer stage II as the patient was noticed to have some maceration and surrounding redness likely from gram-positive skin rogelio patient did have a history of MRSA infection and will need to cover for it while waiting for the culture to finalize currently do not have any other obvious focus of infection lungs were clear to auscultation abdominal soft medical examination urine has been negative in the left fifth toe amputation site wound is currently healed 2-local culture from the sacral area is growing MRSA with sensitivities pending blood culture so far pending 3we will obtain extremity marker and CT of the second to make sure that evidence of any osteo-myelitis or deep collection 4continue the vancomycin while waiting for the cultures to finalize discontinue Rocephin Time with Patient: Less than 30
--- NOTE | 2023-02-19 15:04 | CT ---
EXAMINATION TYPE: CT sacrum wo con CT DLP: 301.7 mGycm, Automated exposure control for dose reduction was used. DATE OF EXAM: 02/19/2023 2:47 PM COMPARISON: Extremity radiograph 02/18/2022. CLINICAL INDICATION:Male, 77 years old with history of Sacral wound rule out osteo-myelitis; PHH, non -healing sacral wound TECHNIQUE: Axial images were obtained of the sacrum. Additional coronal and sagittal reformatted diego ges and soft tissue and bone window were obtained for review. Contrast used: None Oral contrast used: None FINDINGS: Multilevel disc degeneration changes throughout the visualized spine. There is atherosclero sis of the arterial vasculature. Penile prosthesis reservoir noted in the right lower Anterior abdome n. Tubing is partially visualized and intact. Right hip arthroplasty changes. Hardware appears intact . There is decubitus ulcer projecting over the sacrum soft tissues without evidence of organizing flu id collection. No evidence for osseous erosion process is osteomyelitis. No evidence of fracture. Moderate stool burden throughout the colon. Few scattered colonic diverticula. IMPRESSION: Skin defect over the sacrum with out evidence for osseous erosion definitively visualized. No evidenc e for osteomyelitis or organizing fluid collection.
--- NOTE | 2023-02-19 16:19 | P.PN ---
Subjective Progress Note Date: 02/19/23 Patient is a 77-year-old male with PMH of diabetes mellitus, CKD stage III, hypertension, history of DVT, history of TIA is sent by [facility] program for fever of 103F. Patient was seen and evaluated in the ED on 02/16 after mechanical fall. He had complaints of right thigh pain. He denied any syncopal episode or lightheadedness. He denied any head trauma. Hip and CXR was unrevealing, patient was subsequently discharged home from the ED. He returns back to the ED after staffing at [facility] realized he had a high fever of 103F. Patient currently reports pain in his right thigh which has prevented him from ambulating. He reports using a condom catheter at bedtime to help him from soiling himself. He denies any dysuria or abdominal pain. No diarrhea. No cough. He denies any headache, lower extremity edema, nausea or vomiting, chest pain, shortness of breath, palpitations. No changes in appetite or weight. He denies any dizziness, numbness/weakness/tingling of the extremities. In the ED, he was noted to be tachycardic with heart rate of 103 and T-max 103 Fahrenheit. Vital signs are otherwise stable. CBC showed hemoglobin of 10.2. Coagulation panel showed INR 1.2. BMP showed BUN of 22, creatinine 1.83, glucose 127, calcium 8.1. Lactic acid negative. Lipase was negative. COVID-19, RSV, influenza negative. Patient is admitted under observation status for workup of fever. 02/18 Patient was seen and examined. Patient reports no complaints. Tmax 100.3F over the past 24H. Patient reports he's had a sacral wound that has been managed at his SNF. CBC shows Hg 9.8. ESR elevated at 36 and CRP elevated at 8.1. Procalcitonin elevated at 0.28. BMP shows GFR of 45.9. 02/19 Patient was seen and examined. Patient reports no complaints. Afebrile over the past 24 hours. Wound culture growing presumptive MRSA. General: non toxic, no distress, appears at stated age Derm: warm, dry Head: atraumatic, normocephalic, symmetric Eyes: EOMI, no lid lag, anicteric sclera Cardiovascular: S1S2 reg, no murmur Lungs: CTA bilateral, no rhonchi, no rales , no accessory muscle use Ext: no gross muscle atrophy, no edema, no contractures, right thigh tenderness to palpation with no bruising or swelling, full ROM in the right knee Neuro: no focal neuro deficits Psych: Alert, oriented, appropriate affect Sacral wound with maceration. Assessment and Plan: Fever Sacral wound Supratherapeutic INR Chronic condition: normocytic anemia, diabetes mellitus, CKD stage III, hypertension, history of DVT, history of TIA Based on my assessment of this patient, this patient meets a high complexity l evel of care. Patient has a new diagnosis of fever with uncertain prognosis. He has had a Tmax of 103F in the ED. This is of unknown significance. Procalcitonin, ESR and CRP elevated. UA negative. Blood culture is prelim negative. Started on Vancomycin 1500 IV QD by ID. Wound culture growing MRSA. Daughter is his decision maker if he can't make decisions for himself. FULL CODE. Eliquis for DVT prophylaxis. I have reviewed the following reporting process consultant notes: I have reviewed the results of the following tests: Wound culture growing presumptive MRSA. Sacral Xray negative. I have ordered the following tests: Sacral CT ordered. BMP ordered for tomorrow morning to evaluate renal function. Wound culture pending. I have discussed the care of this patient with the following independent historian: I have independently interpreted the following test below: I have discussed the management of this patient with the following physician: The case is discussed with Dr. Lynne. Possible source from the sacral wound. Follow cultures. Continue Vancomycin. Obtain CT sacrum to rule out OM. This patient has a high risk of morbidity due to the following reasons: Patient is currently on Vancomycin IV which is nephrotoxic and required daily renal function monitoring. Objective - Vital Signs Vital signs: Vital Signs Temp 98.2 F 02/19/23 13:57 Pulse 72 02/19/23 13:57 Resp 17 02/19/23 13:57 BP 149/69 02/19/23 13:57 Pulse Ox 97 02/19/23 13:57 FiO2 Intake & Output 02/18/23 02/19/23 02/19/23 18:59 06:59 18:59 Intake Total 340 100 Output Total 450 300 Balance 340 -450 -200 Weight 81.647 kg Intake: Oral 340 100 Output: Urine 450 300 Other: Voiding Method Urinal Urinal Urinal Diaper Diaper Diaper # Voids 1 1 # Bowel Movements 0 - Labs CBC & Chem 7: 02/18/23 05:56 02/18/23 05:56 Labs: Microbiology - Last 24 Hours (Table) 02/18/23 14:57 Gram Stain - Preliminary Buttock Wound Culture - Preliminary Presumptive MRSA 02/17/23 05:02 Blood Culture - Preliminary Blood 02/17/23 04:57 Blood Culture - Preliminary Blood
[2023-02-19] MEDS: ATORVASTATIN 10 MG TAB PO SCH (19:58)
[2023-02-20] MEDS: oxyCODONE-APAP 7.5-325MG 1 EACH TAB PO PRN ×2 (04:17→10:02)
[2023-02-20 07:44] VITALS: RESP 18
[2023-02-20] MEDS: APIXABAN 2.5 MG TABLET PO SCH (10:02)
[2023-02-20] MEDS: GABAPENTIN 300 MG CAP PO SCH (10:03)
[2023-02-20] MEDS: METOPROLOL TARTRATE 50 MG TAB PO SCH (10:03)
[2023-02-20] MEDS: amLODIPine 10 MG TAB PO SCH (10:03)
[2023-02-20] MEDS: TAMSULOSIN 0.4 MG CAP.ER.24H PO SCH (10:03)
[2023-02-20 10:53] LABS: Basophils # (A) 0.01 X 10*3/uL (0.00-0.10); Basophils % (A) 0.1 %; HCT 34.5 % (39.6-50.0); HGB 10.4 g/dL (13.0-17.0); Immature Grans, Automated 0.7 %; Lymphocytes # (A) 1.31 X 10*3/uL (0.90-5.00); Lymphocytes % (A) 18.4 %; MCH 24.8 pg (27.0-32.0); MCHC 30.1 g/dL (32.0-37.0); MCV 82.1 fL (80.0-97.0); Mean Platelet Volume 10.9 fL (9.5-12.2); Monocytes # (A) 1.09 X 10*3/uL (0.20-1.00); Monocytes % (A) 15.3 %; NRBC Per 100 WBC 0 /100 WBCS (0.0-0.0); Neutrophils # (A) 4.17 X 10*3/uL (1.80-7.70); Neutrophils % (A) 58.5 %; Platelet Count 303 X 10*3/uL (140-440); RDW 17.4 % (11.5-14.5); WBC 7.13 X 10*3/uL (4.50-10.00)
[2023-02-20 11:12] LABS: African American GFR (CKD) 51.8 (60.0-200.0); Anion Gap 11.3 mmol/L (10.00-18.00); BUN/Creat Ratio 14.9 Ratio (12.00-20.00); Blood Urea Nitrogen 21.9 mg/dL (9.0-27.0); Calcium 8.4 mg/dL (8.7-10.3); Carbon Dioxide 23.4 mmol/L (20.0-27.5); Non-African American GFR(CKD) 44.7 (60.0-200.0); Potassium 4.3 mmol/L (3.5-5.5)
[2023-02-20] MEDS: VANCOMYCIN 1,500 MG in SODIUM CHLORIDE 0.9% 500 ML 500 ML IVPB SCH (12:37)
--- NOTE | 2023-02-20 13:20 | P.DS ---
Providers Date of admission: 02/17/23 08:33 Expected date of discharge: 02/20/23 Attending physician: Juju Gates DO Consults: 02/18/23 08:12 Consult Physician Routine Consulting Provider: Pablito Lynne Consult Reason/Comments: fever Do you want consulting provider notified?: Yes Primary care physician: Zeeshan William MD Hospital Course: Patient is a 77-year-old male with PMH of diabetes mellitus, CKD stage III, hypertension, history of DVT, history of TIA is sent by [facility] program for fever of 103F. Patient was seen and evaluated in the ED on 02/16 after mechanical fall. He had complaints of right thigh pain. He denied any syncopal episode or lightheadedness. He denied any head trauma. Hip and CXR was unrevealing, patient was subsequently discharged home from the ED. He returns back to the ED after staffing at [facility] realized he had a high fever of 103F. Patient currently reports pain in his right thigh which has prevented him from ambulating. He reports using a condom catheter at bedtime to help him from soiling himself. He denies any dysuria or abdominal pain. No diarrhea. No cough. He denies any headache, lower extremity edema, nausea or vomiting, chest pain, shortness of breath, palpitations. No changes in appetite or weight. He denies any dizziness, numbness/weakness/tingling of the extremities. In the ED, he was noted to be tachycardic with heart rate of 103 and T-max 103 Fahrenheit. Vital signs are otherwise stable. CBC showed hemoglobin of 10.2. Coagulation panel showed INR 1.2. BMP showed BUN of 22, creatinine 1.83, glucose 127, calcium 8.1. Lactic acid negative. Lipase was negative. COVID-19, RSV, influenza negative. Patient is admitted under observation status for workup of fever. 02/18 Patient was seen and examined. Patient reports no complaints. Tmax 100.3F over the past 24H. Patient reports he's had a sacral wound that has been managed at his SNF. CBC shows Hg 9.8. ESR elevated at 36 and CRP elevated at 8.1. Procalcitonin elevated at 0.28. BMP shows GFR of 45.9. 02/19 Patient was seen and examined. Patient reports no complaints. Afebrile over the past 24 hours. Wound culture growing presumptive MRSA. 02/20 Patient was seen and examined. CT sacrum shows no bone involvement. Discussed with microbilogy, wound culture growing presumptive MRSA, no sensitivities back. Discussed with Dr. Lynne, patient can be discharged on Doxycycline by mouth for 2 weeks. Pertinent studies include Venous doppler, Sacrum XR, Sacral CT. General: non toxic, no distress, appears at stated age Derm: warm, dry Head: atraumatic, normocephalic, symmetric Eyes: EOMI, no lid lag, anicteric sclera Cardiovascular: S1S2 reg, no murmur Lungs: CTA bilateral, no rhonchi, no rales , no accessory muscle use Ext: no gross muscle atrophy, no edema, no contractures, right thigh tenderness to palpation with no bruising or swelling, full ROM in the right knee Neuro: no focal neuro deficits Psych: Alert, oriented, appropriate affect Sacral wound with maceration. Discharge Diagnosis: Fever Sacral wound Supratherapeutic INR Chronic condition: normocytic anemia, diabetes mellitus, CKD stage III, hypertension, history of DVT, history of TIA This complex discharge took 35 minutes to complete. Patient Condition at Discharge: Stable Plan - Discharge Summary New Discharge Prescriptions: New Doxycycline [Vibramycin] 100 mg PO BID 14 Days #28 capsule Continue Atorvastatin [Lipitor] 10 mg PO HS Magnesium Oxide 400 mg PO DAILY Metoprolol Tartrate [Lopressor] 50 mg PO DAILY Tamsulosin [Flomax] 0.4 mg PO BID #0 capsule L.acidoph,Paracasei, B.lactis [Probiotic] 1 cap PO DAILY Gabapentin [Neurontin] 300 mg PO BID Apixaban [Eliquis] 2.5 mg PO BID methocarbamoL 1,000 mg PO TID Ketoconazole 2% Shampoo [Nizoral] 1 applic TOPICAL DIRECTED amLODIPine [Norvasc] 10 mg PO DAILY #30 tab Sennosides [Senokot] 8.6 mg PO HS PRN PRN Reason: NO BM AFTER 48 HRS oxyCODONE-APAP 7.5-325MG [Percocet 7.5-325 mg] 1 tab PO 5XD PRN PRN Reason: Pain Neomycin/Bacitracin/Polymyxinb [Neosporin Ointment] 1 applic TOPICAL BID Multivit-Mins/Iron/Folic/Lycop [Centrum Men's Tablet] 1 tab PO DAILY Calcium Carbonate [Calcium] 600 mg PO BID Discontinued Amoxic-Pot Clav 875-125Mg [Augmentin 875-125] 1 tab PO BID 7 Days #14 tab Discharge Medication List Atorvastatin [Lipitor] 10 mg PO HS 10/29/18 [History] Magnesium Oxide 400 mg PO DAILY 07/07/21 [History] Metoprolol Tartrate [Lopressor] 50 mg PO DAILY 07/07/21 [History] Tamsulosin [Flomax] 0.4 mg PO BID #0 capsule 09/13/21 [Rx] Apixaban [Eliquis] 2.5 mg PO BID 11/11/22 [History] Gabapentin [Neurontin] 300 mg PO BID 11/11/22 [History] L.acidoph,Paracasei, B.lactis [Probiotic] 1 cap PO DAILY 11/11/22 [History] Sennosides [Senokot] 8.6 mg PO HS PRN 11/11/22 [History] Calcium Carbonate [Calcium] 600 mg PO BID 01/10/23 [History] Ketoconazole 2% Shampoo [Nizoral] 1 applic TOPICAL DIRECTED 01/10/23 [History] Multivit-Mins/Iron/Folic/Lycop [Centrum Men's Tablet] 1 tab PO DAILY 01/10/23 [History] Neomycin/Bacitracin/Polymyxinb [Neosporin Ointment] 1 applic TOPICAL BID 01/10/23 [History] methocarbamoL 1,000 mg PO TID 01/10/23 [History] oxyCODONE-APAP 7.5-325MG [Percocet 7.5-325 mg] 1 tab PO 5XD PRN 01/10/23 [History] amLODIPine [Norvasc] 10 mg PO DAILY #30 tab 01/19/23 [Rx] Doxycycline [Vibramycin] 100 mg PO BID 14 Days #28 capsule 02/20/23 [Rx] Follow up Appointment(s)/Referral(s): Zeeshan William MD [Primary Care Provider] - 1-2 days Discharge Disposition: HOME SELF-CARE
--- NOTE | 2023-02-20 13:51 | P.PN ---
Subjective Progress Note Date: 02/20/23 Principal diagnosis: Fever/infected sacral pressure ulcer Patient is a 77-year-old male with a past medical history significant for hypertension diabetes mellitus chronic kidney disease patient did have a history of left fifth toe infection with MRSA status post amputation on his last admission , recently did have a fall with some pain into the right thigh area x-rays negative for any fracture patient did have a fever and concern for infected sacral pressure ulcer. On today's evaluation that is 02/20/2023, the patient remains to be afebrile, patient is breathing comfortably on room air the patient denies having any chest pain or shortness of breath or cough no nausea no vomiting no abdominal pain or diarrhea Objective - Vital Signs Vital signs: Vital Signs Temp 97.9 F 02/20/23 07:35 Pulse 73 02/20/23 07:35 Resp 18 02/20/23 07:35 BP 120/66 02/20/23 07:35 Pulse Ox 95 02/20/23 07:35 FiO2 Intake & Output 02/19/23 02/20/23 02/20/23 18:59 06:59 18:59 Intake Total 218 118 Output Total 300 950 Balance -82 -950 118 Weight 81.647 kg Intake: Oral 218 118 Output: Urine 300 950 Other: Voiding Method Urinal Urinal Diaper Diaper Diaper External Catheter # Voids 1 1 - Exam GENERAL DESCRIPTION: An elderly male lying in bed in no distress RESPIRATORY SYSTEM: Unlabored breathing , decreased breath sounds at bases HEART: S1 S2 regular rate and rhythm , ABDOMEN: Soft , no tenderness Sacral excoriation and redness has decreased in intensity EXTREMITIES: No edema feet - Labs CBC & Chem 7: 02/20/23 06:13 02/20/23 06:13 Labs: Abnormal Lab Results - Last 24 Hours (Table) 02/20/23 02/20/23 Range/Units 06:13 06:13 RBC 4.20 L (4.40-5.60) X 10*6/uL Hgb 10.4 L (13.0-17.0) g/dL Hct 34.5 L (39.6-50.0) % MCH 24.8 L (27.0-32.0) pg MCHC 30.1 L (32.0-37.0) g/dL RDW 17.4 H (11.5-14.5) % Immature Gran # 0.05 H (0.00-0.04) X 10*3/uL Monocytes # 1.09 H (0.20-1.00) X 10*3/uL Eosinophils # 0.50 H (0.04-0.35) X 10*3/uL Est GFR (CKD-EPI)AfAm 51.8 L (60.0-200.0) Est GFR (CKD-EPI)NonAf 44.7 L (60.0-200.0) Calcium 8.4 L (8.7-10.3) mg/dL C-Reactive Protein 10.00 H (0.00-0.80) mg/dL Microbiology - Last 24 Hours (Table) 02/17/23 05:02 Blood Culture - Preliminary Blood 02/17/23 04:57 Blood Culture - Preliminary Blood 02/18/23 14:57 Gram Stain - Preliminary Buttock Wound Culture - Preliminary Presumptive MRSA Assessment and Plan (1) Infected pressure ulcer Current Visit: Yes Status: Acute Code(s): L89.90 - PRESSURE ULCER OF UNSPECIFIED SITE, UNSPECIFIED STAGE; L08.9 - LOCAL INFECTION OF THE SKIN AND SUBCUTANEOUS TISSUE, UNSP SNOMED Code(s): 727608321 Plan: 1patient was in the hospital with fever and this patient with the possible source to be infected sacral pressure ulcer stage II as the patient was noticed to have some maceration and surrounding redness likely from gram-positive skin rogelio patient did have a history of MRSA infection and will need to cover for it while waiting for the culture to finalize currently do not have any other obvious focus of infection lungs were clear to auscultation abdominal soft medical examination urine has been negative in the left fifth toe amputation site wound is currently healed 2-local culture from the sacral area is growing MRSA with sensitivities pending blood culture so far pending 3patient did have CT of the second with evidence of any osteomyelitis or abscess, ESR only 36 4patient seemed #clinical improvement with vancomycin however plan is for DC discussed with the admitting team patient may go on oral doxycycline 100 mg twice a day for 2 weeks, however culture results is to be followed and close outpatient follow-up Time with Patient: Less than 30
[2023-02-20 14:26] VITALS: BP 130/66; PULSE 70; TEMP 98.1
[2023-02-20 15:16] LABS: Erythrocyte Sedimentation Rate 105 mm/Hr (0-20)
[2023-02-21] MEDS ORDERED: VANCOMYCIN TROUGH DUE 1 EACH MISC MISCELLANE ONE (12:00)
== END 2023-02-20 14:45 | disposition home or self-care (01) ==
LOC: EC 04:05 → 6NMEDSUR 08:33
PROVIDERS: ADMIT Internal Medicine; ATTEND Internal Medicine
DX: R50.9 Fever, unspecified (principal); E11.622 Type 2 diabetes mellitus with other skin ulcer; L89.153 Pressure ulcer of sacral region, stage 3; I12.9 Hypertensive chronic kidney disease with stage 1 through stage 4 chronic kidney disease, or unspecified chronic kidney disease; N18.30 Chronic kidney disease, stage 3 unspecified; E11.22 Type 2 diabetes mellitus with diabetic chronic kidney disease; I69.341 Monoplegia of lower limb following cerebral infarction affecting right dominant side; D64.9 Anemia, unspecified; I82.511 Chronic embolism and thrombosis of right femoral vein; K57.30 Diverticulosis of large intestine without perforation or abscess without bleeding; I25.10 Atherosclerotic heart disease of native coronary artery without angina pectoris; Z79.899 Other long term (current) drug therapy; Z79.01 Long term (current) use of anticoagulants; Z88.1 Allergy status to other antibiotic agents; Z96.641 Presence of right artificial hip joint; Z98.1 Arthrodesis status; Z95.810 Presence of automatic (implantable) cardiac defibrillator; Z82.49 Family history of ischemic heart disease and other diseases of the circulatory system; Z80.9 Family history of malignant neoplasm, unspecified; Z20.822 Contact with and (suspected) exposure to COVID-19
CPT/HCPCS: 96365 ×2; 96366 ×3; 96367; 96361; 96375; 99285; 51798; 36415; 97162; 97166; 80053; 80048 ×2; 85652 ×2; 83605; 83690; 85025 ×3; 85610; 85730; 86140 ×2; 81001; 87040; 87070; 87205; 87077; 87186; 84145; 87636; 72220; 93970; 72192; G0378 ×4; J3370 ×3; J2270; J0696 ×2

== ENCOUNTER 2023-05-18 14:08 | Inpatient (IN) | payer OTHER ==
--- NOTE | 2023-05-18 14:36 | ED ---
General Adult HPI - General Chief complaint: Weakness Stated complaint: Hallucinations Time Seen by Provider: 05/18/23 14:15 Source: patient, EMS, RN notes reviewed, old records reviewed Mode of arrival: EMS Limitations: physical limitation - History of Present Illness Initial comments: This is an 78-year-old male who presents emergency Department from [facility] patient states they told him he had a fever of 101 and he was hallucinating. Patient states he does not believe he is hallucinating he states that staff told me he was trying to put potato chips into the TV set he does not recall any of this and thinks that is not true. Patient states he has had a cough recently though he doubts he has any fever he doesn't feel warm does not have any chills per patient denies any shortness of breath or difficulty breathing. Patient denies any chest pain or palpitations. Patient denies lightheadedness or dizziness. Patient denies abdominal pain patient denies nausea vomiting or diarrhea. - Related Data Home Medications Medication Instructions Recorded Confirmed Atorvastatin [Lipitor] 10 mg PO HS 10/29/18 02/17/23 Magnesium Oxide 400 mg PO DAILY 07/07/21 02/17/23 Metoprolol Tartrate [Lopressor] 50 mg PO DAILY 07/07/21 02/17/23 Apixaban [Eliquis] 2.5 mg PO BID 11/11/22 02/17/23 Gabapentin [Neurontin] 300 mg PO BID 11/11/22 02/17/23 L.acidoph,Paracasei, B.lactis 1 cap PO DAILY 11/11/22 02/17/23 [Probiotic] Sennosides [Senokot] 8.6 mg PO HS PRN 11/11/22 02/17/23 Calcium Carbonate [Calcium] 600 mg PO BID 01/10/23 02/17/23 Ketoconazole 2% Shampoo [Nizoral] 1 applic TOPICAL DIRECTED 01/10/23 02/17/23 Multivit-Mins/Iron/Folic/Lycop 1 tab PO DAILY 01/10/23 02/17/23 [Centrum Men's Tablet] Neomycin/Bacitracin/Polymyxinb 1 applic TOPICAL BID 01/10/23 02/17/23 [Neosporin Ointment] methocarbamoL 1,000 mg PO TID 01/10/23 02/17/23 oxyCODONE-APAP 7.5-325MG [Percocet 1 tab PO 5XD PRN 01/10/23 02/17/23 7.5-325 mg] Previous Rx's Medication Instructions Recorded Tamsulosin [Flomax] 0.4 mg PO BID #0 capsule 09/13/21 amLODIPine [Norvasc] 10 mg PO DAILY #30 tab 01/19/23 Doxycycline [Vibramycin] 100 mg PO BID 14 Days #28 capsule 02/20/23 Allergies Allergy/AdvReac Type Severity Reaction Status Date / Time ciprofloxacin [From Cipro] Allergy Unknown Verified 05/18/23 14:22 doxazosin Allergy Unknown Verified 05/18/23 14:22 Review of Systems ROS Statement: Those systems with pertinent positive or pertinent negative responses have been documented in the HPI. ROS Other: All systems not noted in ROS Statement are negative. Past Medical History Past Medical History: CVA/TIA, Diabetes Mellitus, Deep Vein Thrombosis (DVT), Hypertension, Osteoarthritis (OA) Additional Past Medical History / Comment(s): wound center patient, states has DVT x3 in rt leg, past hx of diabetes and HTN, no longer requires rx since weight loss. states TIA in 2010 residual muscle weakness in rt leg, wears brace rt leg, uti . 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, pacemaker/ACID placed 2017 History of Any Multi-Drug Resistant Organisms: MRSA Date of last positivie culture/infection: 02/18/23 MDRO Source:: Sacral Wound Past Surgical History: Back Surgery, Hernia Repair, Orthopedic Surgery, Pacemaker Additional Past Surgical History / Comment(s): cervical fusion, right hip replacement, cataract surgery, penile implant Past Anesthesia/Blood Transfusion Reactions: No Reported Reaction Type of Cardiac Device: Permanent Pacemaker, AICD, Unknown Device Placement Date:: May 2018 Past Psychological History: No Psychological Hx Reported Smoking Status: Never smoker Past Alcohol Use History: None Reported Past Drug Use History: None Reported - Past Family History Mother Family Medical History: Cancer Father Family Medical History: Cancer, Coronary Artery Disease (CAD) General Exam - General Exam Comments Initial Comments: GENERAL: Patient is well-developed and well-nourished. Patient is nontoxic and well- hydrated and is in no acute distress. ENT: Neck is soft and supple. No significant lymphadenopathy is noted. Oropharynx is clear. Moist mucous membranes. Neck has full range of motion without eliciting any pain. EYES: The sclera were anicteric and conjunctiva were pink and moist. Extraocular movements were intact and pupils were equal round and reactive to light. Eyelids were unremarkable. PULMONARY: Unlabored respirations. Good breath sounds bilaterally. Patient has crackles in the right base CARDIOVASCULAR: There is a regular rate and rhythm without any murmurs gallops or rubs. ABDOMEN: Soft and nontender with normal bowel sounds. SKIN: Skin is clear with no lesions or rashes and otherwise unremarkable. NEUROLOGIC: Patient is alert and oriented x3. Cranial nerves II through XII are grossly intact. Motor and sensory are also intact. Normal speech, volume and content. Symmetrical smile. MUSCULOSKELETAL: Normal extremities with adequate strength and full range of motion. LYMPHATICS: No significant lymphadenopathy is noted PSYCHIATRIC: Normal psychiatric evaluation. Limitations: physical limitation Course Vital Signs 05/18/23 14:13 Temperature 98.9 F Pulse Rate 90 Respiratory 20 Rate Blood Pressure 162/82 O2 Sat by Pulse 93 L Oximetry Medical Decision Making - Medical Decision Making Was pt. sent in by a medical professional or institution (, PA, RESIDUE FURNACE OPERATOR, urgent care, hospital, or long-term...) When possible be specific @ -Dr. William sent the patient in Did you speak to anyone other than the patient for history (EMS, parent, family, police, friend...)? What history was obtained from this source @ -No Did you review nursing and triage notes (agree or disagree)? Why? @ -I reviewed and agree with nursing and triage notes Were old charts reviewed (outside hosp., previous admission, EMS record, old EKG, old radiological studies, urgent care reports/EKG's, long-term records)? Report findings @ -I reviewed prior lab work in prior charts in this patient Differential Diagnosis (chest pain, altered mental status, abdominal pain women, abdominal pain men, vaginal bleeding, weakness, fever, dyspnea, syncope, headache, dizziness, GI bleed, back pain, seizure, CVA, palpatations, mental health, musculoskeletal)? @ -Differential Fever: Pneumonia, viral URI, endocarditis, myocarditis, pericarditis, otitis, sinusitis, peritonsillar Abscess, retropharyngeal Abscess, epiglottitis, peritonitis, appendicitis, Doretha cystitis, diverticulitis, hepatitis, colitis, UTI, PID, TOA, pyelonephritis, prostatitis, epididymitis, meningitis, encephalitis, pulmonary embolism, CVA, thyroid storm, pancreatitis, adrenal crisis, cavernous sinus thrombosis, this is not meant to be an all-inclusive list. EKG interpreted by me (3pts min.). @ -As above X-rays interpreted by me (1pt min.). @ -Chest x-ray shows an infiltrate in the right base CT interpreted by me (1pt min.). @ -None done U/S interpreted by me (1pt. min.). @ -None done What testing was considered but not performed or refused? (CT, X-rays, U/S, labs)? Why? @ -None What meds were considered but not given or refused? Why? @ -None Did you discuss the management of the patient with other professionals (pr ofessionals i.e. , PA, RESIDUE FURNACE OPERATOR, lab, RT, psych nurse, social media marketing analyst, oral therapist, teacher, airplane first officer, case work aide)? Give summary @ -I spoke with Dr. Gates she agreed to admit the patient admitted the patient wrote admitting orders Was smoking cessation discussed for >3mins.? @ -No Was critical care preformed (if so, how long)? @ -No Were there social determinants of health that impacted care today? How? (Homelessness, low income, unemployed, alcoholism, drug addiction, transportat ion, low edu. Level, literacy, decrease access to med. care, retirement, rehab)? @ -No Was there de-escalation of care discussed even if they declined (Discuss DNR or withdrawal of care, Hospice)? DNR status @ -No What co-morbidities impacted this encounter? (DM, HTN, Smoking, COPD, CAD, Cancer, CVA, ARF, Chemo, Hep., AIDS, mental health diagnosis, sleep apnea, morbid obesity)? @ -None Was patient admitted / discharged? Hospital course, mention meds given and route, prescriptions, significant lab abnormalities, going to OR and other pertinent info. @ -Patient had probably to be a pneumonia on the x-ray I started the patient on antibiotics I spoke with Dr. Gates admitted the patient continued antibiotics on the floor Undiagnosed new problem with uncertain prognosis? @ -No Drug Therapy requiring intensive monitoring for toxicity (Heparin, Nitro, Insulin, Cardizem)? @ -No Were any procedures done? @ -No Diagnosis/symptom? @ -Pneumonia Acute, or Chronic, or Acute on Chronic? @ -Acute Uncomplicated (without systemic symptoms) or Complicated (systemic symptoms)? @ -Complicated Side effects of treatment? @ -No Exacerbation, Progression, or Severe Exacerbation? @ -No Poses a threat to life or bodily function? How? (Chest pain, [place], [place], pneumonia, PE, COPD, DKA, ARF, appy, cholecystitis, CVA, Diverticulitis, Homicidal, Suicidal, threat to staff... and all critical care pts) @ -Yes this could lead to hypoxia and then end organ dysfunction - Lab Data Result diagrams: 05/18/23 14:34 Lab Results 05/18/23 05/18/23 Range/Units 14:34 14:34 WBC 27.0 H (3.8-10.6) k/uL RBC 4.13 L (4.30-5.90) m/uL Hgb 11.0 L (13.0-17.5) gm/dL Hct 33.3 L (39.0-53.0) % MCV 80.8 (80.0-100.0) fL MCH 26.6 (25.0-35.0) pg MCHC 33.0 (31.0-37.0) g/dL RDW 16.3 H (11.5-15.5) % Plt Count 263 (150-450) k/uL MPV 9.0 Anisocytosis Slight Plasma Lactic Acid Jason 1.1 (0.7-2.0) mmol/L Disposition Clinical Impression: Pneumonia Disposition: ADMITTED IP TO THIS [facility] Referrals: Zeeshan William MD [Primary Care Provider] - 1-2 days Time of Disposition: 15:58
[2023-05-18 15:16] LABS: Anisocytosis Slight; Basophils # (A) 0.1 k/uL (0-0.2); Basophils % (A) 0 %; Eosinophils # (A) 0.1 k/uL (0-0.7); Eosinophils % (A) 0 %; HCT 33.3 % (39.0-53.0); Lymphocytes # (A) 0.9 k/uL (1.0-4.8); Lymphocytes % (A) 3 %; MCH 26.6 pg (25.0-35.0); MCV 80.8 fL (80.0-100.0); Monocytes % (A) 11 %; Neutrophils # (A) 22.5 k/uL (1.3-7.7); Neutrophils % (A) 83 %; Platelet Count 263 k/uL (150-450); RBC 4.13 m/uL (4.30-5.90); RDW 16.3 % (11.5-15.5)
--- NOTE | 2023-05-18 15:45 | XR ---
EXAMINATION TYPE: XR chest 2V DATE OF EXAM: 05/18/2023 3:17 PM COMPARISON: Chest radiographs from 02/16/2023 TECHNIQUE: XR chest 2V Frontal and lateral views of the chest. CLINICAL INDICATION:Male, 78 years old with history of Difficulty breathing ; FINDINGS: Lungs/Pleura: Low lung volumes are present. There is no evidence of left pleural effusion, focal cons olidation, or pneumothorax. Pulmonary vascularity: Unremarkable. Blunting of the right costophrenic angle suggestive of pleural e ffusion. Heart/mediastinum: Cardiomediastinal silhouette is enlarged and stable. Two lead cardiac conduction d evice overlying the left hemithorax with lead tips projecting over the right ventricle and right atri um. Musculoskeletal: No acute osseous pathology. There is fixation hardware in the lower cervical spine. Degeneration or remote injury to the right, clavicular joint. End-stage right shoulder osteoarthrosis . Other findings: None IMPRESSION: Low lung volumes with a generalized hazy appearance which could represent atelectasis versus pulmonar y edema correlate with serum BNP.
[2023-05-18] MEDS ORDERED: cefTRIAXone IN SWFI 1,000 MG/10 ML SYRINGE IVP STA (15:50)
[2023-05-18] MEDS ORDERED: AZITHROMYCIN 500 MG in SODIUM CHLORIDE 0.9% 250 ML IVPB STA (15:59)
[2023-05-18] MEDS ORDERED: PNEUMONIA PROTOCOL UTILIZED 1 EACH MISC PO PRN (15:59)
--- NOTE | 2023-05-18 16:52 | P.HPIM ---
History of Present Illness H&P Date: 05/18/23 Patient is a 78-year-old male with PMH of diabetes mellitus, CKD stage III, hypertension, history of DVT, history of TIA is sent by [employer] for fever and hallucinations. Patient reports a wet cough that has been ongoing for the past 2 days. He reports feeling warm since today. He does have a history of osteomyelitis and cellulitis which has grown MRSA in the past. He describes a sacral wound that is in the process of healing and not open. He denies any chest pain, shortness of breath or palpitations. He denies any dysuria or abdominal pain. No diarrhea. He denies any headache, lower extremity edema, nausea or vomiting. No changes in appetite or weight. He denies any dizziness, numbness/weakness/tingling of the extremities. In the ED, he was noted to be tachycardic with heart rate of 90. Vital signs are otherwise stable. CBC showed WBC count of 27 with neutrophilia and Hg 11. Lactic acid negative. COVID-19, RSV, influenza negative. CXR did not show any focal consolidation. Patient is admitted for workup of fever presumed to be related to PNA. Pertinent positives and negatives as discussed in HPI, a complete review of systems was performed and all other systems are negative. General: non toxic, no distress, appears at stated age Derm: warm, dry Head: atraumatic, normocephalic, symmetric Eyes: EOMI, no lid lag, anicteric sclera Cardiovascular: S1S2 reg, no murmur Lungs: CTA bilateral, no rhonchi, no rales , no accessory muscle use Abdominal: soft, nontender to palpation, no guarding, no appreciable organomegaly Ext: no gross muscle atrophy, no edema, no contractures Neuro: no focal neuro deficits Psych: Alert, oriented, appropriate affect Assessment and Plan: Sepsis with unknown etiology Acute metabolic encephalopathy likely related to above Chronic condition: normocytic anemia, diabetes mellitus, CKD stage III, hypertension, history of DVT, history of TIA Based on my assessment of this patient, this patient meets a high complexity level of care. Patient has an acute diagnosis of sepsis on unknown etiology that poses a threat to life or bodily function. Sepsis with unknown etiology: Started on Rocephin 2 g IV daily and azithromycin 500 mg by mouth daily for treatment of community acquired pneumonia. Repeat chest x-ray tomorrow. Obtain blood culture. Obtain BNP. Sputum culture ordered. Legionella ordered. Pro-calcitonin ordered. Urinalysis reflex to culture ordered. Telemetry monitoring. Normal saline started at 75 mL per hour. Acute metabolic encephalopathy likely related to above I have reviewed the following residential property consultant notes: I have reviewed the results of the following tests: CBC, lactic acid. I have ordered the following tests: CBC, CMP, chest x-ray, blood culture, BNP, sputum culture, Legionella antigen, pro-calcitonin, urinalysis. I have discussed the care of this patient with the following independent istorian: I have independently interpreted the following test below: Chest x-ray as above. I have discussed the management of this patient with the following physician: Past Medical History Past Medical History: CVA/TIA, Diabetes Mellitus, Deep Vein Thrombosis (DVT), Hypertension, Osteoarthritis (OA) Additional Past Medical History / Comment(s): wound center patient, states has DVT x3 in rt leg, past hx of diabetes and HTN, no longer requires rx since weight loss. states TIA in 2010 residual muscle weakness in rt leg, wears brace rt leg, uti . 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, pacemaker/ACID placed 2017 History of Any Multi-Drug Resistant Organisms: MRSA Date of last positivie culture/infection: 02/18/23 MDRO Source:: Sacral Wound Past Surgical History: Back Surgery, Hernia Repair, Orthopedic Surgery, Pacemaker Additional Past Surgical History / Comment(s): cervical fusion, right hip replacement, cataract surgery, penile implant Past Anesthesia/Blood Transfusion Reactions: No Reported Reaction Type of Cardiac Device: Permanent Pacemaker, AICD, Unknown Device Placement Date:: May 2018 Past Psychological History: No Psychological Hx Reported Smoking Status: Never smoker Past Alcohol Use History: None Reported Past Drug Use History: None Reported - Past Family History Mother Family Medical History: Cancer Father Family Medical History: Cancer, Coronary Artery Disease (CAD) Medications and Allergies Home Medications Medication Instructions Recorded Confirmed Type Atorvastatin [Lipitor] 10 mg PO HS 10/29/18 05/18/23 History Magnesium Oxide 400 mg PO DAILY 07/07/21 05/18/23 History Metoprolol Tartrate [Lopressor] 50 mg PO DAILY 07/07/21 05/18/23 History Tamsulosin [Flomax] 0.4 mg PO BID #0 capsule 09/13/21 05/18/23 Rx Apixaban [Eliquis] 2.5 mg PO BID 11/11/22 05/18/23 History Gabapentin [Neurontin] 300 mg PO BID 11/11/22 05/18/23 History L.acidoph,Paracasei, B.lactis 1 cap PO DAILY 11/11/22 05/18/23 History [Probiotic] Sennosides [Senokot] 8.6 mg PO HS 11/11/22 05/18/23 History Calcium Carbonate [Calcium] 600 mg PO BID 01/10/23 05/18/23 History Multivit-Mins/Iron/Folic/Lycop 1 tab PO DAILY 01/10/23 05/18/23 History [Centrum Men's Tablet] methocarbamoL 1,000 mg PO TID 01/10/23 05/18/23 History oxyCODONE-APAP 7.5-325MG [Percocet 1 tab PO 5XD PRN 01/10/23 05/18/23 History 7.5-325 mg] Menthol [Biofreeze] 1 applic TOPICAL QID PRN 05/18/23 05/18/23 History Menthol-Zinc Oxide Oint 1 applic TOPICAL TID PRN 05/18/23 05/18/23 History [Calmoseptine Ointment] Allergies Allergy/AdvReac Type Severity Reaction Status Date / Time ciprofloxacin [From Cipro] Allergy Unknown Verified 05/18/23 16:13 doxazosin Allergy Unknown Verified 05/18/23 16:13 Physical Exam Vitals: Vital Signs Temp Pulse Resp BP Pulse Ox 05/18/23 15:00 18 162/82 94 L 05/18/23 14:13 98.9 F 90 20 162/82 93 L Intake and Output 05/18/23 05/18/23 05/18/23 06:59 14:59 22:59 Other: Weight 83.007 kg Results CBC & Chem 7: 05/18/23 14:34 Labs: Abnormal Lab Results - Last 24 Hours (Table) 05/18/23 Range/Units 14:34 WBC 27.0 H (3.8-10.6) k/uL RBC 4.13 L (4.30-5.90) m/uL Hgb 11.0 L (13.0-17.5) gm/dL Hct 33.3 L (39.0-53.0) % RDW 16.3 H (11.5-15.5) % Neutrophils # 22.5 H (1.3-7.7) k/uL Lymphocytes # 0.9 L (1.0-4.8) k/uL Monocytes # 3.0 H (0-1.0) k/uL
[2023-05-18 17:48] LABS: ALT 23 U/L (4-49); AST 24 U/L (17-59); African American GFR (CKD) 50 (>60 ml/min/1.73 sqM); Albumin 3.4 g/dL (3.5-5.0); Albumin/Globulin Ratio 0.9; Alkaline Phosphatase 60 U/L (38-126); Anion Gap 9 mmol/L; Blood Urea Nitrogen 23 mg/dL (9-20); Calcium 8.3 mg/dL (8.4-10.2); Carbon Dioxide 25 mmol/L (22-30); Chloride 88 mmol/L (98-107); Globulin 3.7 g/dL; Glucose 149 mg/dL (74-99); Non-African American GFR(CKD) 44 (>60 ml/min/1.73 sqM); Potassium 4.9 mmol/L (3.5-5.1); Sodium 122 mmol/L (137-145); Total Bilirubin 0.8 mg/dL (0.2-1.3); Total Protein 7.1 g/dL (6.3-8.2)
[2023-05-18 22:11] LABS: Glucose,Whole Blood 145 mg/dL (70-110)
[2023-05-18] MEDS: GABAPENTIN 300 MG CAP PO SCH (22:12)
[2023-05-18] MEDS: ATORVASTATIN 10 MG TAB PO SCH (22:12)
[2023-05-18] MEDS: SODIUM CHLORIDE 0.9% 1,000 ML IV SCH (22:12)
[2023-05-18] MEDS: TAMSULOSIN 0.4 MG CAP.ER.24H PO SCH (22:12)
[2023-05-18] MEDS: APIXABAN 2.5 MG TABLET PO SCH (22:12)
[2023-05-18] MEDS: oxyCODONE-APAP 7.5-325MG 1 EACH TAB PO PRN (22:18)
[2023-05-19] MEDS: oxyCODONE-APAP 7.5-325MG 1 EACH TAB PO PRN ×3 (04:26→19:36)
[2023-05-19 04:43] LABS: Appearance,Urine Clear (Clear); Bacteria,Urine Many /hpf; Bilirubin,Urine Negative (Negative); Blood,Urine Negative (Negative); Color,Urine Light Yellow; Glucose,Urine (UA) Negative (Negative); Ketones,Urine Negative (Negative); Leukocyte Esterase,Urine Large (Negative); Nitrite,Urine Negative (Negative); PH, Urine 7.5 (5.0-8.0); Protein,Urine 1+ (Negative); RBC,Urine 1 /hpf (0-5); Specific Gravity,Urine 1.005 (1.001-1.035); Urobilinogen,Urine <2.0 mg/dL (<2.0); WBC,Urine 45 /hpf (0-5)
[2023-05-19 05:49] LABS: Glucose,Whole Blood 117 mg/dL (70-110)
--- NOTE | 2023-05-19 08:23 | XR ---
EXAMINATION TYPE: XR chest 2V DATE OF EXAM: 05/19/2023 COMPARISON: 05/18/2023 HISTORY: 78-year-old male pneumonia TECHNIQUE: AP and lateral views FINDINGS: Heart normal size. Some mild patchy right basilar opacity remains. Left anterior chest wall AICD gene rator with right atrial and right ventricular leads. No sizable pleural effusion. IMPRESSION: Patchy right basilar atelectasis versus infiltrate.
[2023-05-19] MEDS: GABAPENTIN 300 MG CAP PO SCH ×2 (09:15→21:31)
[2023-05-19] MEDS: TAMSULOSIN 0.4 MG CAP.ER.24H PO SCH ×2 (09:15→21:31)
[2023-05-19] MEDS: APIXABAN 2.5 MG TABLET PO SCH ×2 (09:15→21:31)
[2023-05-19] MEDS: SODIUM CHLORIDE 0.9% 1,000 ML IV SCH ×2 (09:15→23:57)
[2023-05-19] MEDS: METOPROLOL TARTRATE 50 MG TAB PO SCH (09:15)
[2023-05-19] MEDS: AZITHROMYCIN 500 MG TAB PO SCH (10:30)
[2023-05-19 11:47] LABS: Glucose,Whole Blood 145 mg/dL (70-110)
--- NOTE | 2023-05-19 13:12 | P.PN ---
Subjective Progress Note Date: 05/19/23 Patient is a 78-year-old male with PMH of diabetes mellitus, CKD stage III, hypertension, history of DVT, history of TIA is sent by [employer] for fever and hallucinations. Patient reports a wet cough that has been ongoing for the past 2 days. He reports feeling warm since today. He does have a history of osteomyelitis and cellulitis which has grown MRSA in the past. He describes a sacral wound that is in the process of healing and not open. He denies any chest pain, shortness of breath or palpitations. He denies any dysuria or abdominal pain. No diarrhea. He denies any headache, lower extremity edema, nausea or vomiting. No changes in appetite or weight. He denies any dizziness, numbness/weakness/tingling of the extremities. In the ED, he was noted to be tachycardic with heart rate of 90. Vital signs are otherwise stable. CBC showed WBC count of 27 with neutrophilia and Hg 11. Lactic acid negative. COVID-19, RSV, influenza negative. CXR did not show any focal consolidation. Patient is admitted for workup of fever presumed to be related to PNA. 05/19 Patient was seen and examined. No acute events overnight. No fevers overnight. Currently on Rocephin/Azithromycin for treatment of CAP. He continues to report a wet cough. CBC and BMP pending. CXR done today shows right basilar atelectasis vs. infiltrate. Procalcitonin 0.19. BNP 2910. UA shows large LE. Urine legionella, sputum and blood cultures pending. General: non toxic, no distress, appears at stated age Derm: warm, dry Head: atraumatic, normocephalic, symmetric Eyes: EOMI, no lid lag, anicteric sclera Cardiovascular: S1S2 reg, no murmur Lungs: CTA bilateral, no rhonchi, no rales , no accessory muscle use Abdominal: soft, nontender to palpation, no guarding, no appreciable organomegaly Ext: no gross muscle atrophy, no edema, no contractures Neuro: no focal neuro deficits Psych: Alert, oriented, appropriate affect Assessment and Plan: Sepsis with unknown etiology Acute metabolic encephalopathy likely related to above Abnormal UA Chronic condition: normocytic anemia, diabetes mellitus, CKD stage III, hypertension, history of DVT, history of TIA Based on my assessment of this patient, this patient meets a moderate complexity level of care. Patient has an acute diagnosis of sepsis on unknown etiology that poses a threat to life or bodily function. Sepsis with unknown etiology: Started on Rocephin 2 g IV daily and azithromycin 500 mg by mouth daily for treatment of community acquired pneumonia. Obtain blood culture. Sputum culture ordered. Legionella ordered. Urinalysis reflex to culture ordered. Telemetry monitoring. Normal saline started at 75 mL per hour. Acute metabolic encephalopathy likely related to above Abnormal UA: No UTI symptoms. Covered with Rocephin. Follow UCx. I have reviewed the following independent consultant notes: I have reviewed the results of the following tests: CXR. Procalcitonin. UCx. I have ordered the following tests: CBC, CMP, blood culture, sputum culture, Legionella antigen I have discussed the care of this patient with the following independent histor kimber: I have independently interpreted the following test below: I have discussed the management of this patient with the following physician: Objective - Vital Signs Vital signs: Vital Signs Temp 98.0 F 05/19/23 07:49 Pulse 90 05/19/23 07:49 Resp 18 05/19/23 07:49 BP 172/76 05/19/23 07:49 Pulse Ox 95 05/19/23 07:49 FiO2 Intake & Output 05/18/23 05/19/23 05/19/23 18:59 06:59 18:59 Output Total 750 1000 Balance -750 -1000 Weight 83.007 kg 83.007 kg Output: Urine 750 1000 Other: Voiding Method External Catheter External Catheter - Labs CBC & Chem 7: 05/18/23 14:34 05/18/23 16:50 Labs: Abnormal Lab Results - Last 24 Hours (Table) 05/18/23 05/18/23 05/18/23 Range/Units 14:34 16:50 16:50 WBC 27.0 H (3.8-10.6) k/uL RBC 4.13 L (4.30-5.90) m/uL Hgb 11.0 L (13.0-17.5) gm/dL Hct 33.3 L (39.0-53.0) % RDW 16.3 H (11.5-15.5) % Neutrophils # 22.5 H (1.3-7.7) k/uL Lymphocytes # 0.9 L (1.0-4.8) k/uL Monocytes # 3.0 H (0-1.0) k/uL Sodium 122 L (137-145) mmol/L Chloride 88 L (98-107) mmol/L BUN 23 H (9-20) mg/dL Creatinine 1.50 H (0.66-1.25) mg/dL Glucose 149 H (74-99) mg/dL POC Glucose (mg/dL) (70-110) mg/dL Calcium 8.3 L (8.4-10.2) mg/dL Albumin 3.4 L (3.5-5.0) g/dL Procalcitonin 0.19 H (0.02-0.09) ng/mL Urine Protein (Negative) Ur Leukocyte Esterase (Negative) Urine WBC (0-5) /hpf Urine Bacteria (None) /hpf 05/18/23 05/19/23 05/19/23 Range/Units 22:09 04:30 05:47 WBC (3.8-10.6) k/uL RBC (4.30-5.90) m/uL Hgb (13.0-17.5) gm/dL Hct (39.0-53.0) % RDW (11.5-15.5) % Neutrophils # (1.3-7.7) k/uL Lymphocytes # (1.0-4.8) k/uL Monocytes # (0-1.0) k/uL Sodium (137-145) mmol/L Chloride (98-107) mmol/L BUN (9-20) mg/dL Creatinine (0.66-1.25) mg/dL Glucose (74-99) mg/dL POC Glucose (mg/dL) 145 H 117 H (70-110) mg/dL Calcium (8.4-10.2) mg/dL Albumin (3.5-5.0) g/dL Procalcitonin (0.02-0.09) ng/mL Urine Protein 1+ H (Negative) Ur Leukocyte Esterase Large H (Negative) Urine WBC 45 H (0-5) /hpf Urine Bacteria Many H (None) /hpf 05/19/23 Range/Units 11:45 WBC (3.8-10.6) k/uL RBC (4.30-5.90) m/uL Hgb (13.0-17.5) gm/dL Hct (39.0-53.0) % RDW (11.5-15.5) % Neutrophils # (1.3-7.7) k/uL Lymphocytes # (1.0-4.8) k/uL Monocytes # (0-1.0) k/uL Sodium (137-145) mmol/L Chloride (98-107) mmol/L BUN (9-20) mg/dL Creatinine (0.66-1.25) mg/dL Glucose (74-99) mg/dL POC Glucose (mg/dL) 145 H (70-110) mg/dL Calcium (8.4-10.2) mg/dL Albumin (3.5-5.0) g/dL Procalcitonin (0.02-0.09) ng/mL Urine Protein (Negative) Ur Leukocyte Esterase (Negative) Urine WBC (0-5) /hpf Urine Bacteria (None) /hpf
[2023-05-19 14:40] LABS: Anisocytosis Slight; HCT 32.2 % (39.0-53.0); HGB 10.5 gm/dL (13.0-17.5); Hypochromasia Slight; MCH 27.1 pg (25.0-35.0); MCHC 32.6 g/dL (31.0-37.0); MCV 83.1 fL (80.0-100.0); Mean Platelet Volume 9.5; Platelet Count 254 k/uL (150-450); RBC 3.87 m/uL (4.30-5.90); RDW 16.4 % (11.5-15.5); WBC 16.8 k/uL (3.8-10.6)
[2023-05-19 15:11] LABS: African American GFR (CKD) 53 (>60 ml/min/1.73 sqM); Anion Gap 9 mmol/L; Blood Urea Nitrogen 24 mg/dL (9-20); Calcium 8.2 mg/dL (8.4-10.2); Carbon Dioxide 25 mmol/L (22-30); Chloride 94 mmol/L (98-107); Glucose 204 mg/dL (74-99); Non-African American GFR(CKD) 46 (>60 ml/min/1.73 sqM); Potassium 5.1 mmol/L (3.5-5.1); Sodium 128 mmol/L (137-145)
[2023-05-19 16:51] LABS: Glucose,Whole Blood 157 mg/dL (70-110)
[2023-05-19 21:17] LABS: Glucose,Whole Blood 248 mg/dL (70-110)
[2023-05-19] MEDS: ATORVASTATIN 10 MG TAB PO SCH (21:31)
[2023-05-19] MEDS ORDERED: DEXTROSE 50% SYRINGE 50 ML IVP PRN ×2 (21:50)
[2023-05-19] MEDS: INSULIN ASPART (NovoLOG) 100 UNIT/ML VIAL SQ SCH (23:01)
[2023-05-20] MEDS: oxyCODONE-APAP 7.5-325MG 1 EACH TAB PO PRN ×3 (02:28→21:15)
[2023-05-20] MEDS: SODIUM CHLORIDE 0.9% 1,000 ML IV SCH ×3 (02:30→16:02)
[2023-05-20 06:13] LABS: Glucose,Whole Blood 122 mg/dL (70-110)
[2023-05-20] MEDS: INSULIN ASPART (NovoLOG) 100 UNIT/ML VIAL SQ SCH ×4 (06:23→21:12)
[2023-05-20 09:04] LABS: Anisocytosis Slight; Basophils % (A) 0 %; Eosinophils # (A) 0.2 k/uL (0-0.7); Eosinophils % (A) 1 %; HCT 32.8 % (39.0-53.0); HGB 10.5 gm/dL (13.0-17.5); Hypochromasia Slight; Lymphocytes % (A) 7 %; MCH 26.9 pg (25.0-35.0); MCHC 32.2 g/dL (31.0-37.0); MCV 83.6 fL (80.0-100.0); Mean Platelet Volume 9.4; Monocytes # (A) 1.1 k/uL (0-1.0); Monocytes % (A) 8 %; Neutrophils # (A) 10.9 k/uL (1.3-7.7); Neutrophils % (A) 81 %; Platelet Count 243 k/uL (150-450); RBC 3.92 m/uL (4.30-5.90); RDW 16.7 % (11.5-15.5); WBC 13.4 k/uL (3.8-10.6)
[2023-05-20 09:06] LABS: African American GFR (CKD) 61 (>60 ml/min/1.73 sqM); Anion Gap 12 mmol/L; Blood Urea Nitrogen 25 mg/dL (9-20); Calcium 8.2 mg/dL (8.4-10.2); Carbon Dioxide 19 mmol/L (22-30); Chloride 100 mmol/L (98-107); Glucose 111 mg/dL (74-99); Non-African American GFR(CKD) 53 (>60 ml/min/1.73 sqM); Potassium 5.2 mmol/L (3.5-5.1); Sodium 131 mmol/L (137-145)
[2023-05-20] MEDS: METOPROLOL TARTRATE 50 MG TAB PO SCH (09:20)
[2023-05-20] MEDS: AZITHROMYCIN 500 MG TAB PO SCH (09:20)
[2023-05-20] MEDS: TAMSULOSIN 0.4 MG CAP.ER.24H PO SCH ×2 (09:20→21:13)
[2023-05-20] MEDS: GABAPENTIN 300 MG CAP PO SCH ×2 (09:20→21:13)
[2023-05-20] MEDS: APIXABAN 2.5 MG TABLET PO SCH ×2 (09:20→21:13)
[2023-05-20] MEDS ORDERED: MENTHOL-ZINC OXIDE OINT 113 GM TUBE TOPICAL PRN (11:08)
[2023-05-20 11:58] LABS: Glucose,Whole Blood 148 mg/dL (70-110)
[2023-05-20] MEDS: SENNOSIDES 8.6 MG TAB PO SCH (12:53)
--- NOTE | 2023-05-20 13:54 | P.PN ---
Subjective Progress Note Date: 05/20/23 Hospital Course: 78-year-old male with PMH of diabetes mellitus, CKD stage III, hypertension, history of DVT, history of TIA is sent by [facility] for fever and hallucinations. In the ED, he was noted to be tachycardic with heart rate of 90. Vital signs are otherwise stable. CBC showed WBC count of 27 with neutrophilia and Hg 11. Lactic acid negative. COVID-19, RSV, influenza negative. CXR did not show any focal consolidation. Patient is admitted for workup of fever presumed to be related to PNA. Patient started on IV antibiotics. Subjective: Patient seen and examined at bedside. No acute events overnight. Continues to have cough, no sputum production. Denies any shortness of breath. Denies any urinary complaints. Pertinent positives and negatives as discussed above, a complete review of systems was performed and all other systems are negative. Vitals Signs Reviewed. General: non toxic, no distress, appears at stated age Derm: warm, dry Head: atraumatic, normocephalic, symmetric Eyes: EOMI, no lid lag, anicteric sclera Cardiovascular: S1S2 reg, no murmur Lungs: CTA bilateral, no rhonchi, no rales , no accessory muscle use Abdominal: soft, nontender to palpation, no guarding, no appreciable organomegaly Ext: no gross muscle atrophy, no edema, no contractures Neuro: no focal neuro deficits Psych: Alert, oriented, appropriate affect Data Reviewed Today: Pertinent Labs: WBC 13.4, hemoglobin 10.5, sodium 131, potassium 5.2, creatinine 1.28, blood sugars range between 111-248 Imaging: No new imaging Assessment and Plan: Sepsis secondary to community-acquired pneumonia Dehydration Acute kidney injury on chronic kidney disease stage III Hypovolemic hyponatremia Chronic normocytic anemia, stable Hypokalemia Type 2 diabetes History of DVT Hypertension -Continue ceftriaxone IV, completed azithromycin -Elevated pro calcitonin -Sputum cultures, blood cultures pending, ESR and CRP ordered -Continue normal saline at 75 mL an hour -Renal function and sodium levels improving, repeat BMP tomorrow -WBC count trending down, repeat CBC tomorrow -lokelma x1 -Sliding scale insulin -Continue Eliquis DVT ppx: Eliquis Code status: Full code Anticipated discharge place: Pending clinical course Anticipated discharge time: Pending clinical course Objective - Vital Signs Vital signs: Vital Signs Temp 97.9 F 05/20/23 07:56 Pulse 84 05/20/23 07:56 Resp 18 05/20/23 07:56 BP 163/81 05/20/23 07:56 Pulse Ox 95 05/20/23 08:10 FiO2 21 05/20/23 08:10 Intake & Output 05/19/23 05/20/23 05/20/23 18:59 06:59 18:59 Intake Total 900 Output Total 1650 900 800 Balance -1650 0 -800 Intake: Intake, IV Titration 900 Amount Sodium Chloride 0.9% 1, 900 000 ml @ 75 mls/hr IV . [id number] [facility] Rx#:[id number] Output: Urine 1650 900 800 Other: Voiding Method External Catheter External Catheter - Labs CBC & Chem 7: 05/20/23 06:48 05/20/23 06:48 Labs: Abnormal Lab Results - Last 24 Hours (Table) 05/19/23 05/19/23 05/19/23 Range/Units 14:01 14:01 16:50 WBC 16.8 H (3.8-10.6) k/uL RBC 3.87 L (4.30-5.90) m/uL Hgb 10.5 L (13.0-17.5) gm/dL Hct 32.2 L (39.0-53.0) % RDW 16.4 H (11.5-15.5) % Neutrophils # (1.3-7.7) k/uL Monocytes # (0-1.0) k/uL Sodium 128 L (137-145) mmol/L Potassium (3.5-5.1) mmol/L Chloride 94 L (98-107) mmol/L Carbon Dioxide (22-30) mmol/L BUN 24 H (9-20) mg/dL Creatinine 1.43 H (0.66-1.25) mg/dL Glucose 204 H (74-99) mg/dL POC Glucose (mg/dL) 157 H (70-110) mg/dL Hemoglobin A1c (<=6.0) % Calcium 8.2 L (8.4-10.2) mg/dL 05/19/23 05/20/23 05/20/23 Range/Units 21:16 06:11 06:48 WBC (3.8-10.6) k/uL RBC (4.30-5.90) m/uL Hgb (13.0-17.5) gm/dL Hct (39.0-53.0) % RDW (11.5-15.5) % Neutrophils # (1.3-7.7) k/uL Monocytes # (0-1.0) k/uL Sodium (137-145) mmol/L Potassium (3.5-5.1) mmol/L Chloride (98-107) mmol/L Carbon Dioxide (22-30) mmol/L BUN (9-20) mg/dL Creatinine (0.66-1.25) mg/dL Glucose (74-99) mg/dL POC Glucose (mg/dL) 248 H 122 H (70-110) mg/dL Hemoglobin A1c 7.6 H (<=6.0) % Calcium (8.4-10.2) mg/dL 05/20/23 05/20/23 05/20/23 Range/Units 06:48 06:48 11:56 WBC 13.4 H (3.8-10.6) k/uL RBC 3.92 L (4.30-5.90) m/uL Hgb 10.5 L (13.0-17.5) gm/dL Hct 32.8 L (39.0-53.0) % RDW 16.7 H (11.5-15.5) % Neutrophils # 10.9 H (1.3-7.7) k/uL Monocytes # 1.1 H (0-1.0) k/uL Sodium 131 L (137-145) mmol/L Potassium 5.2 H (3.5-5.1) mmol/L Chloride (98-107) mmol/L Carbon Dioxide 19 L (22-30) mmol/L BUN 25 H (9-20) mg/dL Creatinine 1.28 H (0.66-1.25) mg/dL Glucose 111 H (74-99) mg/dL POC Glucose (mg/dL) 148 H (70-110) mg/dL Hemoglobin A1c (<=6.0) % Calcium 8.2 L (8.4-10.2) mg/dL Microbiology - Last 24 Hours (Table) 05/18/23 14:50 Blood Culture - Preliminary Blood 05/19/23 04:30 Urine Culture - Preliminary Urine,Voided Gram Neg Bacilli
[2023-05-20] MEDS ORDERED: SODIUM ZIRCONIUM CYCLOSILICATE 10 GM PACKET PO ONE (15:30)
[2023-05-20 17:13] LABS: Glucose,Whole Blood 139 mg/dL (70-110)
[2023-05-20 21:10] LABS: Glucose,Whole Blood 166 mg/dL (70-110)
[2023-05-20] MEDS: ATORVASTATIN 10 MG TAB PO SCH (21:13)
[2023-05-21 05:30] LABS: Glucose,Whole Blood 129 mg/dL (70-110)
[2023-05-21] MEDS: INSULIN ASPART (NovoLOG) 100 UNIT/ML VIAL SQ SCH ×2 (05:45→12:49)
[2023-05-21] MEDS: SODIUM CHLORIDE 0.9% 1,000 ML IV SCH (06:51)
[2023-05-21 07:24] LABS: African American GFR (CKD) 51 (>60 ml/min/1.73 sqM); Anion Gap 11 mmol/L; Blood Urea Nitrogen 22 mg/dL (9-20); Calcium 8.5 mg/dL (8.4-10.2); Carbon Dioxide 23 mmol/L (22-30); Chloride 100 mmol/L (98-107); Glucose 114 mg/dL (74-99); Non-African American GFR(CKD) 44 (>60 ml/min/1.73 sqM); Potassium 4.5 mmol/L (3.5-5.1); Sodium 134 mmol/L (137-145)
[2023-05-21 07:39] LABS: Anisocytosis Slight; Basophils % (A) 0 %; Eosinophils # (A) 0.3 k/uL (0-0.7); Eosinophils % (A) 2 %; HCT 31.7 % (39.0-53.0); HGB 10.5 gm/dL (13.0-17.5); Lymphocytes % (A) 8 %; MCH 26.9 pg (25.0-35.0); MCHC 33.2 g/dL (31.0-37.0); MCV 81.1 fL (80.0-100.0); Monocytes % (A) 8 %; Neutrophils # (A) 10.1 k/uL (1.3-7.7); Neutrophils % (A) 80 %; Platelet Count 259 k/uL (150-450); RDW 16.6 % (11.5-15.5); WBC 12.6 k/uL (3.8-10.6)
[2023-05-21] MEDS: GABAPENTIN 300 MG CAP PO SCH (09:01)
[2023-05-21] MEDS: METOPROLOL TARTRATE 50 MG TAB PO SCH (09:01)
[2023-05-21] MEDS: APIXABAN 2.5 MG TABLET PO SCH (09:01)
[2023-05-21] MEDS: SENNOSIDES 8.6 MG TAB PO SCH (09:01)
[2023-05-21] MEDS: TAMSULOSIN 0.4 MG CAP.ER.24H PO SCH (09:01)
[2023-05-21] MEDS: oxyCODONE-APAP 7.5-325MG 1 EACH TAB PO PRN (09:18)
[2023-05-21 10:04] VITALS: BP 188/93; PULSE 74; RESP 19; TEMP 98.3
[2023-05-21 12:04] LABS: Glucose,Whole Blood 139 mg/dL (70-110)
--- NOTE | 2023-05-21 13:26 | P.DS ---
Providers Date of admission: 05/18/23 15:59 Expected date of discharge: 05/21/23 Attending physician: Juju Gates DO Primary care physician: Zeeshan William MD Hospital Course: Discharge Diagnosis: Sepsis secondary to community-acquired pneumonia Dehydration Acute kidney injury on chronic kidney disease stage III Hypovolemic hyponatremia Chronic normocytic anemia, stable Hyperkalemia Type 2 diabetes History of DVT Hypertension Hospital Course: 78-year-old male with PMH of diabetes mellitus, CKD stage III, hypertension, history of DVT, history of TIA is sent by [facility] for fever and hallucinations. In the ED, he was noted to be tachycardic with heart rate of 90. Vital signs are otherwise stable. CBC showed WBC count of 27 with neutrophilia and Hg 11. Lactic acid negative. COVID-19, RSV, influenza negative. CXR concerning for basilar infiltrate. Patient admitted for sepsis secondary to community-acquired pneumonia. Improved with IV antibiotics. Labs improved at the time of discharge. Multiple attempts made to contact [facility] provider to go over discharge plan, no response. Patient being discharged back to [facility] residence. Patient seen and examined at bedside. Vital signs reviewed and stable. General: non toxic, no distress, appears at stated age Derm: warm, dry Head: atraumatic, normocephalic, symmetric Eyes: EOMI, no lid lag, anicteric sclera Cardiovascular: S1S2 reg, no murmur Lungs: CTA bilateral, no rhonchi, no rales , no accessory muscle use Abdominal: soft, nontender to palpation, no guarding, no appreciable organomegaly Ext: no gross muscle atrophy, no edema, no contractures Neuro: no focal neuro deficits Psych: Alert, oriented, appropriate affect A total of 33 minutes of time were spent preparing this complex discharge summary. Patient was discharged on 05/21/23 at 13:22. Patient Condition at Discharge: Stable Plan - Discharge Summary Discharge Rx Participant: No New Discharge Prescriptions: New Cefdinir [Omnicef] 300 mg PO Q12HR #2 capsule Continue Atorvastatin [Lipitor] 10 mg PO HS Magnesium Oxide 400 mg PO DAILY Metoprolol Tartrate [Lopressor] 50 mg PO DAILY Tamsulosin [Flomax] 0.4 mg PO BID #0 capsule L.acidoph,Paracasei, B.lactis [Probiotic] 1 cap PO DAILY Gabapentin [Neurontin] 300 mg PO BID Apixaban [Eliquis] 2.5 mg PO BID Menthol [Biofreeze] 1 applic TOPICAL QID PRN PRN Reason: Pain Sennosides [Senokot] 8.6 mg PO HS oxyCODONE-APAP 7.5-325MG [Percocet 7.5-325 mg] 1 tab PO 5XD PRN PRN Reason: Pain Multivit-Mins/Iron/Folic/Lycop [Centrum Men's Tablet] 1 tab PO DAILY Calcium Carbonate [Calcium] 600 mg PO BID Menthol-Zinc Oxide Oint [Calmoseptine Ointment] 1 applic TOPICAL TID PRN PRN Reason: sacrum dermatitis Discontinued methocarbamoL 1,000 mg PO TID Discharge Medication List Atorvastatin [Lipitor] 10 mg PO HS 10/29/18 [History] Magnesium Oxide 400 mg PO DAILY 07/07/21 [History] Metoprolol Tartrate [Lopressor] 50 mg PO DAILY 07/07/21 [History] Tamsulosin [Flomax] 0.4 mg PO BID #0 capsule 09/13/21 [Rx] Apixaban [Eliquis] 2.5 mg PO BID 11/11/22 [History] Gabapentin [Neurontin] 300 mg PO BID 11/11/22 [History] L.acidoph,Paracasei, B.lactis [Probiotic] 1 cap PO DAILY 11/11/22 [History] Sennosides [Senokot] 8.6 mg PO HS 11/11/22 [History] Calcium Carbonate [Calcium] 600 mg PO BID 01/10/23 [History] Multivit-Mins/Iron/Folic/Lycop [Centrum Men's Tablet] 1 tab PO DAILY 01/10/23 [History] oxyCODONE-APAP 7.5-325MG [Percocet 7.5-325 mg] 1 tab PO 5XD PRN 01/10/23 [History] Menthol [Biofreeze] 1 applic TOPICAL QID PRN 05/18/23 [History] Menthol-Zinc Oxide Oint [Calmoseptine Ointment] 1 applic TOPICAL TID PRN 04/30 [History] Cefdinir [Omnicef] 300 mg PO Q12HR #2 capsule 05/21/23 [Rx] Follow up Appointment(s)/Referral(s): Zeeshan William MD [Primary Care Provider] - 1-2 days Patient Instructions/Handouts: Community Acquired Pneumonia (DC) Activity/Diet/Wound Care/Special Instructions: Please see your PCP. Discharge Disposition: TRANSFER TO SNF/ECF
== END 2023-05-21 16:48 | DRG 871 ==
LOC: EC 14:08 → 4SSUR 15:59
PROVIDERS: ADMIT Internal Medicine; ATTEND Internal Medicine
DX: A41.9 Sepsis, unspecified organism (principal); G93.41 Metabolic encephalopathy; J18.9 Pneumonia, unspecified organism; N17.9 Acute kidney failure, unspecified; E87.1 Hypo-osmolality and hyponatremia; E11.22 Type 2 diabetes mellitus with diabetic chronic kidney disease; E86.0 Dehydration; N18.30 Chronic kidney disease, stage 3 unspecified; Z20.822 Contact with and (suspected) exposure to COVID-19; D64.9 Anemia, unspecified; I12.9 Hypertensive chronic kidney disease with stage 1 through stage 4 chronic kidney disease, or unspecified chronic kidney disease; E86.1 Hypovolemia; E87.5 Hyperkalemia; Z86.718 Personal history of other venous thrombosis and embolism; M19.90 Unspecified osteoarthritis, unspecified site; Z79.01 Long term (current) use of anticoagulants; Z79.899 Other long term (current) drug therapy; Z96.641 Presence of right artificial hip joint; Z98.1 Arthrodesis status; Z86.73 Personal history of transient ischemic attack (TIA), and cerebral infarction without residual deficits; Z86.14 Personal history of Methicillin resistant Staphylococcus aureus infection; Z95.810 Presence of automatic (implantable) cardiac defibrillator; Z96.0 Presence of urogenital implants; Z88.8 Allergy status to other drugs, medicaments and biological substances; Z88.1 Allergy status to other antibiotic agents
CPT/HCPCS: 36415; 71046; 80048; 80053; 81001; 83036; 83605; 83880; 84145; 85025; 85027; 85652; 86140; 87040; 87077; 87086; 87186; 87449; 87636; 94760; 96365; 96375; 99285

== ENCOUNTER 2023-05-27 10:59 | Emergency (ER) | payer OTHER ==
[2023-05-27] MEDS ORDERED: SODIUM CHLORIDE 0.9% 500 ML 500 ML IV STA (11:40)
--- NOTE | 2023-05-27 11:44 | ED ---
General Adult HPI - General Source: patient, RN notes reviewed, old records reviewed Mode of arrival: EMS <BreannadryArtemio clark - Last Filed: 05/27/23 15:07> <West Ha - Last Filed: 06/06/23 12:46> - General Chief complaint: Abdominal Pain Stated complaint: Fever,Infection Time Seen by Provider: 05/27/23 11:15 - History of Present Illness Initial comments: 78-year-old male presenting for evaluation of fever. Patient reports that he was recently admitted and treated for pneumonia. He completed both IV and oral antibiotics. He was apparently febrile this morning he does follow with the [facility]. He reports cough which is nonproductive. He also reports some lower abdominal pain. No vomiting. No diarrhea. No dysuria. (Artemio Shi) - Related Data Home Medications Medication Instructions Recorded Confirmed Atorvastatin [Lipitor] 10 mg PO HS 10/29/18 05/27/23 Magnesium Oxide 400 mg PO DAILY 07/07/21 05/27/23 Metoprolol Tartrate [Lopressor] 50 mg PO DAILY 07/07/21 05/27/23 Apixaban [Eliquis] 2.5 mg PO BID 11/11/22 05/27/23 Gabapentin [Neurontin] 300 mg PO BID 11/11/22 05/27/23 L.acidoph,Paracasei, B.lactis 1 cap PO DAILY 11/11/22 05/27/23 [Probiotic] Sennosides [Senokot] 8.6 mg PO HS 11/11/22 05/27/23 Calcium Carbonate [Calcium] 600 mg PO BID 01/10/23 05/27/23 Multivit-Mins/Iron/Folic/Lycop 1 tab PO DAILY 01/10/23 05/27/23 [Centrum Men's Tablet] oxyCODONE-APAP 7.5-325MG [Percocet 1 tab PO 5XD PRN 01/10/23 05/27/23 7.5-325 mg] Menthol [Biofreeze] 1 applic TOPICAL QID PRN 05/18/23 05/27/23 Menthol-Zinc Oxide Oint 1 applic TOPICAL TID PRN 05/18/23 05/27/23 [Calmoseptine Ointment] Medihoney 1 applic TOPICAL DAILY 05/27/23 05/27/23 Previous Rx's Medication Instructions Recorded Tamsulosin [Flomax] 0.4 mg PO BID #0 capsule 09/13/21 Cefdinir [Omnicef] 300 mg PO Q12HR #2 capsule 05/21/23 Sulfamethox-Tmp 800-160Mg [Bactrim 1 tab PO Q12HR 7 Days #14 tab 05/31/23 DS 800-160 mg] Allergies Allergy/AdvReac Type Severity Reaction Status Date / Time ciprofloxacin [From Cipro] Allergy Unknown Verified 05/31/23 19:53 doxazosin Allergy Unknown Verified 05/31/23 19:53 Review of Systems ROS Other: All systems not noted in ROS Statement are negative. <Artemio Shi - Last Filed: 05/27/23 15:07> ROS Other: All systems not noted in ROS Statement are negative. <West Ha - Last Filed: 06/06/23 12:46> ROS Statement: Those systems with pertinent positive or pertinent negative responses have been documented in the HPI. Past Medical History Past Medical History: CVA/TIA, Diabetes Mellitus, Deep Vein Thrombosis (DVT), Hypertension, Osteoarthritis (OA) Additional Past Medical History / Comment(s): wound center patient, states has DVT x3 in rt leg, past hx of diabetes and HTN, no longer requires rx since phu ght loss. states TIA in 2010 residual muscle weakness in rt leg, wears brace rt leg, uti . 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, pacemaker/ACID placed 2017 History of Any Multi-Drug Resistant Organisms: MRSA Date of last positivie culture/infection: 02/18/23 MDRO Source:: Sacral Wound Past Surgical History: Back Surgery, Hernia Repair, Orthopedic Surgery, Pacemaker Additional Past Surgical History / Comment(s): cervical fusion, right hip replacement, cataract surgery, penile implant Past Anesthesia/Blood Transfusion Reactions: No Reported Reaction Type of Cardiac Device: Permanent Pacemaker, AICD, Unknown Device Placement Date:: May 2018 Past Psychological History: No Psychological Hx Reported Smoking Status: Never smoker Past Alcohol Use History: None Reported Past Drug Use History: None Reported - Past Family History Mother Family Medical History: Cancer Father Family Medical History: Cancer, Coronary Artery Disease (CAD) <Artemio Shi - Last Filed: 05/27/23 15:07> General Exam General appearance: alert, in no apparent distress Head exam: Present: atraumatic, normocephalic Eye exam: Present: normal appearance, PERRL ENT exam: Present: normal exam Neck exam: Present: normal inspection Respiratory exam: Present: normal lung sounds bilaterally. Absent: respiratory distress, wheezes Cardiovascular Exam: Present: regular rate, normal rhythm GI/Abdominal exam: Present: soft. Absent: distended, tenderness, guarding Neurological exam: Present: alert Psychiatric exam: Present: normal affect, normal mood Skin exam: Present: warm, dry <Artemio Shi - Last Filed: 05/27/23 15:07> Course <Artemio Shi - Last Filed: 05/27/23 15:07> Vital Signs 05/27/23 05/27/23 05/27/23 11:08 16:00 16:53 Temperature 98.6 F 98.2 F Pulse Rate 97 80 80 Respiratory 18 19 20 Rate Blood Pressure 162/79 159/80 144/92 O2 Sat by Pulse 94 L 99 96 Oximetry - Reevaluation(s) Reevaluation #1: 05/27/23 15:08 Patient care signed out to Dr. Ha at shift change awaiting CT imaging (Artemio Shi) Medical Decision Making - Lab Data Result diagrams: 05/27/23 12:10 05/27/23 12:10 <Artemio Shi - Last Filed: 05/27/23 15:07> - Lab Data Result diagrams: 05/27/23 12:10 05/27/23 12:10 <West Ha - Last Filed: 06/06/23 12:46> - Medical Decision Making Patient is 78-year-old man sent here to have evaluation of lower abdominal pain. The workup here does not reveal etiology of the lower abdominal pain. The wor kup does reveal some small infiltrates on the computed tomography scan but not present on chest x-ray. Suspect that these are the resolving pneumonia that the patient was treated for. The patient afebrile here. No leukocytosis here. Patient does appear currently stable for discharge back, will add sputum culture. I reviewed the patient's course in the emergency department, study results, medi cations, with the mid-level practitioner at [facility], patient will be discharged back there and they will have close follow-up, if there are any respiratory symptoms, including cough, fever, decreased saturations, chest pain, they will send the patient back here. Was pt. sent in by a medical professional or institution (MIRIAM Crow, MOLD TECHNICIAN, urgent care, hospital, or senior living...) When possible be specific @ -[No] Did you speak to anyone other than the patient for history (EMS, parent, family, police, friend...)? What history was obtained from this source @ -[No] Did you review nursing and triage notes (agree or disagree)? Why? @ -[I reviewed and agree with nursing and triage notes] Were old charts reviewed (outside hosp., previous admission, EMS record, old EKG, old radiological studies, urgent care reports/EKG's, senior living records)? Report findings @ -[No old charts were reviewed] Differential Diagnosis (chest pain, altered mental status, abdominal pain women, abdominal pain men, vaginal bleeding, weakness, fever, dyspnea, syncope, headache, dizziness, GI bleed, back pain, seizure, CVA, palpatations, mental health, musculoskeletal)? @ -[Differential Abdominal Pain Men: Appendicitis, cholecystitis, diverticulosis, ischemic bowel, pancreatitis, hepatitis, UTI, gastroenteritis, AAA, incarcerated hernia, bowel obstruction, constipation, inflammatory bowel, hepatitis, peptic ulcer disease, splenic infarction, perforated viscus, testicular torsion, this is not meant to be an all-inclusive list Differential Fever: Pneumonia, viral URI, endocarditis, myocarditis, pericarditis, otitis, sinusitis, peritonsillar Abscess, retropharyngeal Abscess, epiglottitis, peritonitis, appendicitis, Doretha cystitis, diverticulitis, hepatitis, colitis, UTI, PID, TOA, pyelonephritis, prostatitis, epididymitis, meningitis, encephalitis, pulmonary embolism, CVA, thyroid storm, pancreatitis, adrenal crisis, cavernous sinus thrombosis, this is not meant to be an all-inclusive list. EKG interpreted by me (3pts min.). @ -[As above] X-rays interpreted by me (1pt min.). @ -[None done] CT interpreted by me (1pt min.). @ -[None done] U/S interpreted by me (1pt. min.). @ -[None done] What testing was considered but not performed or refused? (CT, X-rays, U/S, labs)? Why? @ -[None] What meds were considered but not given or refused? Why? @ -[None] Did you discuss the management of the patient with other professionals (professionals i.e. , PA, MOLD TECHNICIAN, lab, RT, psych nurse, social work associate, painter supervisor, teacher, anti air warfare operations officer, pillowcase sewer)? Give summary @ -I did discuss patient's case with the mid-level practitioner at [facility] Was smoking cessation discussed for >3mins.? @ -[No] Was critical care preformed (if so, how long)? @ -[No] Were there social determinants of health that impacted care today? How? (Homelessness, low income, unemployed, alcoholism, drug addiction, transportation, low edu. Level, literacy, decrease access to med. care, [facility], rehab)? @ -[No] Was there de-escalation of care discussed even if they declined (Discuss DNR or withdrawal of care, Hospice)? DNR status @ -[No] What co-morbidities impacted this encounter? (DM, HTN, Smoking, COPD, CAD, Cancer, CVA, ARF, Chemo, Hep., AIDS, mental health diagnosis, sleep apnea, morbid obesity)? @ -[None] Was patient admitted / discharged? Hospital course, mention meds given and route, prescriptions, significant lab abnormalities, going to OR and other pertinent info. @ -As above Undiagnosed new problem with uncertain prognosis? @ -[No] Drug Therapy requiring intensive monitoring for toxicity (Heparin, Nitro, Insulin, Cardizem)? @ -[No] Were any procedures done? @ -[No] Diagnosis/symptom? @ -[Fever, acute Abdominal pain Acute, or Chronic, or Acute on Chronic? @ -[Acute Uncomplicated (without systemic symptoms) or Complicated (systemic symptoms)? @ -[Uncomplicated Side effects of treatment? @ -[No] Exacerbation, Progression, or Severe Exacerbation? @ -[No] Poses a threat to life or bodily function? How? (Chest pain, USA, PA, pneumonia, PE, COPD, DKA, ARF, appy, cholecystitis, CVA, Diverticulitis, Homicidal, Suicidal, threat to staff... and all critical care pts) @ -[No] (West Ha) - Lab Data Lab Results 05/27/23 05/27/23 05/27/23 Range/Units 12:10 12:10 12:10 WBC 8.8 (3.8-10.6) k/uL RBC 4.81 (4.30-5.90) m/uL Hgb 12.6 L (13.0-17.5) gm/dL Hct 38.8 L (39.0-53.0) % MCV 80.7 (80.0-100.0) fL MCH 26.2 (25.0-35.0) pg MCHC 32.4 (31.0-37.0) g/dL RDW 16.7 H (11.5-15.5) % Plt Count 274 (150-450) k/uL MPV 8.8 Neutrophils % 69 % Lymphocytes % 6 % Monocytes % 20 % Eosinophils % 1 % Basophils % 0 % Neutrophils # 6.1 (1.3-7.7) k/uL Lymphocytes # 0.6 L (1.0-4.8) k/uL Monocytes # 1.7 H (0-1.0) k/uL Eosinophils # 0.1 (0-0.7) k/uL Basophils # 0.0 (0-0.2) k/uL Anisocytosis Slight Sodium 129 L (137-145) mmol/L Potassium 5.2 H (3.5-5.1) mmol/L Chloride 93 L (98-107) mmol/L Carbon Dioxide 24 (22-30) mmol/L Anion Gap 12 mmol/L BUN 16 (9-20) mg/dL Creatinine 1.32 H (0.66-1.25) mg/dL Est GFR (CKD-EPI)AfAm 59 (>60 ml/min/1.73 sqM) Est GFR (CKD-EPI)NonAf 51 (>60 ml/min/1.73 sqM) Glucose 134 H (74-99) mg/dL Plasma Lactic Acid Jason (0.7-2.0) mmol/L Calcium 9.4 (8.4-10.2) mg/dL Total Bilirubin 0.7 (0.2-1.3) mg/dL AST 40 (17-59) U/L ALT 25 (4-49) U/L Alkaline Phosphatase 66 (38-126) U/L Total Protein 9.2 H (6.3-8.2) g/dL Albumin 4.4 (3.5-5.0) g/dL Urine Color Colorless Urine Appearance Clear (Clear) Urine pH 7.5 (5.0-8.0) Ur Specific [place] 1.006 (1.001-1.035) Urine Protein 2+ H (Negative) Urine Glucose (UA) Negative (Negative) Urine Ketones Negative (Negative) Urine Blood Negative (Negative) Urine Nitrite Negative (Negative) Urine Bilirubin Negative (Negative) Urine Urobilinogen <2.0 (<2.0) mg/dL Ur Leukocyte Esterase Negative (Negative) Urine RBC 2 (0-5) /hpf Urine WBC 1 (0-5) /hpf Urine Mucus Rare H (None) /hpf Influenza Type A (PCR) (Not Detectd) Influenza Type B (PCR) (Not Detectd) RSV (PCR) (Not Detectd) SARS-CoV-2 (PCR) (Not Detectd) 05/27/23 05/27/23 Range/Units 12:10 12:10 WBC (3.8-10.6) k/uL RBC (4.30-5.90) m/uL Hgb (13.0-17.5) gm/dL Hct (39.0-53.0) % MCV (80.0-100.0) fL MCH (25.0-35.0) pg MCHC (31.0-37.0) g/dL RDW (11.5-15.5) % Plt Count (150-450) k/uL MPV Neutrophils % % Lymphocytes % % Monocytes % % Eosinophils % % Basophils % % Neutrophils # (1.3-7.7) k/uL Lymphocytes # (1.0-4.8) k/uL Monocytes # (0-1.0) k/uL Eosinophils # (0-0.7) k/uL Basophils # (0-0.2) k/uL Anisocytosis Sodium (137-145) mmol/L Potassium (3.5-5.1) mmol/L Chloride (98-107) mmol/L Carbon Dioxide (22-30) mmol/L Anion Gap mmol/L BUN (9-20) mg/dL Creatinine (0.66-1.25) mg/dL Est GFR (CKD-EPI)AfAm (>60 ml/min/1.73 sqM) Est GFR (CKD-EPI)NonAf (>60 ml/min/1.73 sqM) Glucose (74-99) mg/dL Plasma Lactic Acid Jason 1.0 (0.7-2.0) mmol/L Calcium (8.4-10.2) mg/dL Total Bilirubin (0.2-1.3) mg/dL AST (17-59) U/L ALT (4-49) U/L Alkaline Phosphatase (38-126) U/L Total Protein (6.3-8.2) g/dL Albumin (3.5-5.0) g/dL Urine Color Urine Appearance (Clear) Urine pH (5.0-8.0) Ur Specific [place] (1.001-1.035) Urine Protein (Negative) Urine Glucose (UA) (Negative) Urine Ketones (Negative) Urine Blood (Negative) Urine Nitrite (Negative) Urine Bilirubin (Negative) Urine Urobilinogen (<2.0) mg/dL Ur Leukocyte Esterase (Negative) Urine RBC (0-5) /hpf Urine WBC (0-5) /hpf Urine Mucus (None) /hpf Influenza Type A (PCR) Not Detected (Not Detectd) Influenza Type B (PCR) Not Detected (Not Detectd) RSV (PCR) Not Detected (Not Detectd) SARS-CoV-2 (PCR) Not Detected (Not Detectd) Disposition <Artemio Shi - Last Filed: 05/27/23 15:07> Is patient prescribed a controlled substance at d/c from ED?: No <[place] Ha - Last Filed: 06/06/23 12:46> Clinical Impression: Abdominal pain Disposition: HOME SELF-CARE Condition: Fair Instructions (If sedation given, give patient instructions): Abdominal Pain (ED) Referrals: Zeeshan William MD [Primary Care Provider] - 1-2 days
[2023-05-27 12:23] LABS: Anisocytosis Slight; Basophils % (A) 0 %; Eosinophils # (A) 0.1 k/uL (0-0.7); Eosinophils % (A) 1 %; HCT 38.8 % (39.0-53.0); HGB 12.6 gm/dL (13.0-17.5); Lymphocytes # (A) 0.6 k/uL (1.0-4.8); Lymphocytes % (A) 6 %; MCH 26.2 pg (25.0-35.0); MCHC 32.4 g/dL (31.0-37.0); MCV 80.7 fL (80.0-100.0); Mean Platelet Volume 8.8; Monocytes # (A) 1.7 k/uL (0-1.0); Monocytes % (A) 20 %; Neutrophils # (A) 6.1 k/uL (1.3-7.7); Neutrophils % (A) 69 %; Platelet Count 274 k/uL (150-450); RBC 4.81 m/uL (4.30-5.90); RDW 16.7 % (11.5-15.5); WBC 8.8 k/uL (3.8-10.6)
[2023-05-27 12:34] LABS: ALT 25 U/L (4-49); African American GFR (CKD) 59 (>60 ml/min/1.73 sqM); Albumin 4.4 g/dL (3.5-5.0); Anion Gap 12 mmol/L; Blood Urea Nitrogen 16 mg/dL (9-20); Calcium 9.4 mg/dL (8.4-10.2); Carbon Dioxide 24 mmol/L (22-30); Chloride 93 mmol/L (98-107); Glucose 134 mg/dL (74-99); Non-African American GFR(CKD) 51 (>60 ml/min/1.73 sqM); Sodium 129 mmol/L (137-145); Total Bilirubin 0.7 mg/dL (0.2-1.3); Total Protein 9.2 g/dL (6.3-8.2)
[2023-05-27 12:36] LABS: AST 40 U/L (17-59); Potassium 5.2 mmol/L (3.5-5.1)
[2023-05-27 12:37] LABS: Alkaline Phosphatase 66 U/L (38-126)
--- NOTE | 2023-05-27 12:40 | XR ---
EXAMINATION TYPE: XR chest 2V DATE OF EXAM: 05/27/2023 12:28 PM COMPARISON: Chest radiographs from 05/19/2023 TECHNIQUE: XR chest 2V Frontal and lateral views of the chest. CLINICAL INDICATION:Male, 78 years old with history of fever; FINDINGS: Lungs/Pleura: Low lung volumes are present. There is no evidence of pleural effusion, focal consolida tion, or pneumothorax. Pulmonary vascularity: Unremarkable. Heart/mediastinum: Cardiomediastinal silhouette is enlarged and stable. Two lead cardiac conduction d evice overlying the left hemithorax with lead tips projecting over the right ventricle and right atri um. Musculoskeletal: No acute osseous pathology. There is fixation hardware in the lower cervical spine. IMPRESSION: Stable exam. No focal consolidation.
[2023-05-27 14:41] LABS: Appearance,Urine Clear (Clear); Bilirubin,Urine Negative (Negative); Blood,Urine Negative (Negative); Color,Urine Colorless; Glucose,Urine (UA) Negative (Negative); Ketones,Urine Negative (Negative); Leukocyte Esterase,Urine Negative (Negative); Mucus,Urine Rare /hpf; Nitrite,Urine Negative (Negative); PH, Urine 7.5 (5.0-8.0); Protein,Urine 2+ (Negative); RBC,Urine 2 /hpf (0-5); Specific Gravity,Urine 1.006 (1.001-1.035); Urobilinogen,Urine <2.0 mg/dL (<2.0); WBC,Urine 1 /hpf (0-5)
--- NOTE | 2023-05-27 15:43 | CT ---
EXAMINATION TYPE: CT abdomen pelvis wo con CT DLP: 994.3 mGycm, Automated exposure control for dose reduction was used. DATE OF EXAM: 05/27/2023 3:33 PM COMPARISON: 02/19/2023 CLINICAL INDICATION:Male, 78 years old with history of lower ab pain; Abdominal pain, fever TECHNIQUE: Axial CT of the abdomen and pelvis. Sagittal and coronal reformats were created on a [employer] workstation. Contrast used: None (none if empty) Oral contrast used: without Oral Contrast (none if empty) FINDINGS: LOWER CHEST: Coronary artery calcifications. Cardiac conduction leads are present. Airspace opacities aren't seen in the lung bases. ABDOMEN LIVER: Unremarkable GALLBLADDER AND BILE DUCTS: Layering increased densities within the lumen consistent with gallstones are present. PANCREAS: Unremarkable. SPLEEN: Unremarkable. ADRENAL GLANDS: Unremarkable. KIDNEYS AND URETERS: No evidence of hydronephrosis or renal calculus. The ureters are unremarkable. PELVIS BLADDER: Unremarkable REPRODUCTIVE: Penile prosthesis is present and appears intact. ABDOMEN & PELVIS STOMACH AND BOWEL: No evidence of bowel obstruction. PERITONEUM/RETROPERITONEUM: No evidence of pneumoperitoneum or free fluid. VASCULATURE: Mild atherosclerotic calcifications are present throughout the abdominal aorta and its b ranches. No evidence of aortic aneurysm. MUSCULOSKELETAL: No acute osseous abnormalities. Mild disc degeneration changes are present throughou t the thoracolumbar spine. Postsurgical changes to the spine with laminectomy change at L4 and L5. LYMPH NODES: No gross evidence for lymphadenopathy. SOFT TISSUE/ABDOMINAL WALL: Unremarkable IMPRESSION: 1. Bilateral lung base airspace opacities correlate for aspiration pneumonia. 2. No evidence for acute infectious process within the abdomen or pelvis. 3. Cholelithiasis.
[2023-05-27] MEDS ORDERED: oxyCODONE-APAP 7.5-325MG 1 EACH TAB PO STA (16:02)
[2023-05-27 16:12] VITALS: PULSE 80; TEMP 98.2
[2023-05-27 16:54] VITALS: BP 144/92; RESP 20
== END 2023-05-27 18:55 | disposition home or self-care (01) ==
LOC: EC 10:59
DX: K80.20 Calculus of gallbladder without cholecystitis without obstruction (principal); E11.9 Type 2 diabetes mellitus without complications; I10 Essential (primary) hypertension; M19.90 Unspecified osteoarthritis, unspecified site; Z79.1 Long term (current) use of non-steroidal anti-inflammatories (NSAID); Z79.899 Other long term (current) drug therapy; Z79.01 Long term (current) use of anticoagulants; Z88.6 Allergy status to analgesic agent; Z88.8 Allergy status to other drugs, medicaments and biological substances; Z86.73 Personal history of transient ischemic attack (TIA), and cerebral infarction without residual deficits; Z20.822 Contact with and (suspected) exposure to COVID-19; Z88.1 Allergy status to other antibiotic agents
CPT/HCPCS: 36415; 71046; 74176; 80053; 81001; 83605; 85025; 87040; 87636; 96360; 96361; 99285

== ENCOUNTER 2023-05-31 19:45 | Emergency (ER) | payer OTHER ==
[2023-05-31 19:57] VITALS: RESP 18
[2023-05-31] MEDS ORDERED: SODIUM CHLORIDE 0.9% 500 ML 500 ML IV ONE (20:20)
[2023-05-31 20:52] LABS: ALT 21 U/L (4-49); AST 36 U/L (17-59); African American GFR (CKD) 43 (>60 ml/min/1.73 sqM); Albumin 4.3 g/dL (3.5-5.0); Alkaline Phosphatase 70 U/L (38-126); Anion Gap 14 mmol/L; Blood Urea Nitrogen 22 mg/dL (9-20); Calcium 9.1 mg/dL (8.4-10.2); Carbon Dioxide 24 mmol/L (22-30); Chloride 88 mmol/L (98-107); Glucose 152 mg/dL (74-99); Non-African American GFR(CKD) 37 (>60 ml/min/1.73 sqM); Sodium 126 mmol/L (137-145); Total Bilirubin 0.9 mg/dL (0.2-1.3); Total Protein 9.2 g/dL (6.3-8.2)
[2023-05-31 21:02] LABS: Potassium 4.6 mmol/L (3.5-5.1)
[2023-05-31 21:05] LABS: INR 1.2 (<1.2); Partial Thromboplastin Time 30.5 sec (22.0-30.0); Prothrombin Time 12.2 sec (9.0-12.0)
--- NOTE | 2023-05-31 21:14 | XR ---
EXAMINATION TYPE: XR chest 2V DATE OF EXAM: 05/31/2023 9:10 PM COMPARISON: Chest radiographs from 05/27/2023 TECHNIQUE: XR chest 2V Frontal and lateral views of the chest. CLINICAL INDICATION:Male, 78 years old with history of altered mental status; FINDINGS: Patient is rotated which was evaluation. Lungs/Pleura: There is no evidence of pleural effusion, focal consolidation, or pneumothorax. Chroni c senescent parenchyma change. Elevation the right hemidiaphragm. Pulmonary vascularity: Unremarkable. Heart/mediastinum: Cardiomediastinal silhouette is enlarged and stable. Two lead cardiac conduction d evice overlying the left hemithorax with lead tips projecting over the right ventricle and right atri um. Musculoskeletal: Multiple level degenerative disc disease changes seen throughout the spine. Cervical fusion redemonstrated. IMPRESSION: Chronic changes without acute pulmonary process. No significant change from prior.
--- NOTE | 2023-05-31 21:47 | ED ---
General Adult HPI - General Chief complaint: Recheck/Abnormal Lab/Rx Stated complaint: AMS Time Seen by Provider: 05/31/23 20:11 Source: patient Mode of arrival: ambulatory Limitations: no limitations - History of Present Illness Initial comments: 78-year-old male presenting with chief complaint of altered mental status. Patient currently resides at [facility]. Patient states that the staff woke him up today and told him he was going to the hospital. He is unsure why he is here and states that he feels well and has no complaints. Documentation that was sent with him states that essentially patient has been increasingly confused and irritable. Also states that he is very weak and unbalanced when he normally transfers and dresses himself with no issue. He denies chest pain, difficulty breathing, abdominal pain, nausea, vomiting. - Related Data Home Medications Medication Instructions Recorded Confirmed Atorvastatin [Lipitor] 10 mg PO HS 10/29/18 05/27/23 Magnesium Oxide 400 mg PO DAILY 07/07/21 05/27/23 Metoprolol Tartrate [Lopressor] 50 mg PO DAILY 07/07/21 05/27/23 Apixaban [Eliquis] 2.5 mg PO BID 11/11/22 05/27/23 Gabapentin [Neurontin] 300 mg PO BID 11/11/22 05/27/23 L.acidoph,Paracasei, B.lactis 1 cap PO DAILY 11/11/22 05/27/23 [Probiotic] Sennosides [Senokot] 8.6 mg PO HS 11/11/22 05/27/23 Calcium Carbonate [Calcium] 600 mg PO BID 01/10/23 05/27/23 Multivit-Mins/Iron/Folic/Lycop 1 tab PO DAILY 01/10/23 05/27/23 [Centrum Men's Tablet] oxyCODONE-APAP 7.5-325MG [Percocet 1 tab PO 5XD PRN 01/10/23 05/27/23 7.5-325 mg] Menthol [Biofreeze] 1 applic TOPICAL QID PRN 05/18/23 05/27/23 Menthol-Zinc Oxide Oint 1 applic TOPICAL TID PRN 05/18/23 05/27/23 [Calmoseptine Ointment] Medihoney 1 applic TOPICAL DAILY 05/27/23 05/27/23 Previous Rx's Medication Instructions Recorded Tamsulosin [Flomax] 0.4 mg PO BID #0 capsule 09/13/21 Cefdinir [Omnicef] 300 mg PO Q12HR #2 capsule 05/21/23 Sulfamethox-Tmp 800-160Mg [Bactrim 1 tab PO Q12HR 7 Days #14 tab 05/31/23 DS 800-160 mg] Allergies Allergy/AdvReac Type Severity Reaction Status Date / Time ciprofloxacin [From Cipro] Allergy Unknown Verified 05/31/23 19:53 doxazosin Allergy Unknown Verified 05/31/23 19:53 Review of Systems ROS Statement: Those systems with pertinent positive or pertinent negative responses have been documented in the HPI. ROS Other: All systems not noted in ROS Statement are negative. Past Medical History Past Medical History: CVA/TIA, Diabetes Mellitus, Deep Vein Thrombosis (DVT), Hypertension, Osteoarthritis (OA) Additional Past Medical History / Comment(s): wound center patient, states has DVT x3 in rt leg, past hx of diabetes and HTN, no longer requires rx since weight loss. states TIA in 2010 residual muscle weakness in rt leg, wears brace rt leg, uti . 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, pacemaker/ACID placed 2017 History of Any Multi-Drug Resistant Organisms: MRSA Date of last positivie culture/infection: 02/18/23 MDRO Source:: Sacral Wound Past Surgical History: Back Surgery, Hernia Repair, Orthopedic Surgery, Pacemaker Additional Past Surgical History / Comment(s): cervical fusion, right hip replacement, cataract surgery, penile implant Past Anesthesia/Blood Transfusion Reactions: No Reported Reaction Type of Cardiac Device: Permanent Pacemaker, AICD, Unknown Device Placement Date:: May 2018 Past Psychological History: No Psychological Hx Reported Smoking Status: Never smoker Past Alcohol Use History: None Reported Past Drug Use History: None Reported - Past Family History Mother Family Medical History: Cancer Father Family Medical History: Cancer, Coronary Artery Disease (CAD) General Exam Limitations: no limitations General appearance: alert, in no apparent distress Head exam: Present: atraumatic, normocephalic, normal inspection Eye exam: Present: normal appearance, EOMI. Absent: scleral icterus, periorbital swelling Neck exam: Present: normal inspection, full ROM Respiratory exam: Present: normal lung sounds bilaterally. Absent: respiratory distress, wheezes, rales, rhonchi, stridor Cardiovascular Exam: Present: regular rate, normal rhythm, normal heart sounds. Absent: systolic murmur, diastolic murmur, rubs, gallop, clicks Neurological exam: Present: alert, oriented X3, CN II-XII intact Psychiatric exam: Present: normal affect, normal mood Skin exam: Present: warm, dry, intact, normal color. Absent: rash Course Vital Signs 05/31/23 05/31/23 19:54 22:29 Temperature 98.2 F Pulse Rate 79 87 Respiratory 18 18 Rate Blood Pressure 152/72 157/84 O2 Sat by Pulse 96 97 Oximetry EKG Findings - EKG Comments: EKG Findings:: Sinus rhythm ventricular rate 79. WV interval 176. QRS 153. QT 402. QTC 436. No change from previous EKG Medical Decision Making - Medical Decision Making Was pt. sent in by a medical professional or institution ([facility], [facility], urgent care, hospital, or long-term...) When possible be specific @ -skilled nursing Did you speak to anyone other than the patient for history (EMS, parent, family, police, friend...)? What history was obtained from this source @ -No Did you review nursing and triage notes (agree or disagree)? Why? @ -I reviewed and agree with nursing and triage notes Were old charts reviewed (outside hosp., previous admission, EMS record, old EKG, old radiological studies, urgent care reports/EKG's, long-term records)? Report findings @ -No old charts were reviewed Differential Diagnosis (chest pain, altered mental status, abdominal pain women, abdominal pain men, vaginal bleeding, weakness, fever, dyspnea, syncope, headache, dizziness, GI bleed, back pain, seizure, CVA, palpatations, mental health, musculoskeletal)? @ -MDM Differential Altered Mental Status: Hypoglycemia, DKA, hypercapnia, ETOH, overdose, CO poisoning, trauma, myxedema coma, HTN encephalopathy, infection, encephalitis, psychosis, intercranial hemorrhage, hepatic encephalopathy, meningitis, CVA this is not meant to be an all-inclusive list EKG interpreted by me (3pts min.). @ -Sinus rhythm ventricular rate 79. WV interval 176. QRS 153. QT 402. QTC 436. X-rays interpreted by me (1pt min.). @ -Chest x-ray shows no acute changes from previous. Chronic changes without acute process CT interpreted by me (1pt min.). @ -None done U/S interpreted by me (1pt. min.). @ -None done What testing was considered but not performed or refused? (CT, X-rays, U/S, labs)? Why? @ -None What meds were considered but not given or refused? Why? @ -None Did you discuss the management of the patient with other professionals (professionals i.e. Dr., PA, [facility], lab, RT, psych nurse, sr. social media & mobile manager, robotics systems engineer, teacher, real estate loan officer, caseworker)? Give summary @ -No Was smoking cessation discussed for >3mins.? @ -No Was critical care preformed (if so, how long)? @ -No Were there social determinants of health that impacted care today? How? (Homelessness, low income, unemployed, alcoholism, drug addiction, transportation, low edu. Level, literacy, decrease access to med. care, custodial, rehab)? @ -No Was there de-escalation of care discussed even if they declined (Discuss DNR or withdrawal of care, Hospice)? DNR status @ -No What co-morbidities impacted this encounter? (DM, HTN, Smoking, COPD, CAD, Cancer, CVA, ARF, Chemo, Hep., AIDS, mental health diagnosis, sleep apnea, morbid obesity)? @ -None Was patient admitted / discharged? Hospital course, mention meds given and route, prescriptions, significant lab abnormalities, going to OR and other pertinent info. @ -78-year-old male presenting from long-term for altered mental status. Patient is very pleasant and has no complaints at this time. Sodium 126, patient is chronically hyponatremic. Elevated BUN and creatinine appear consistent with baseline. No leukocytosis. Chest x-ray negative for acute p rocess. Urine shows large leukocytes with 31 wbc's. Altered mental status likely attributed to urinary tract infection. Patient will be started on Bactrim and discharge back to long-term. Follow-up with PCP. Report back to ER with any new or worsening symptoms. Discussed return parameters and answered all questions. Patient conveyed verbal understanding and agreed to the plan. I discussed this case in detail with my attending Dr. Wilson Undiagnosed new problem with uncertain prognosis? @ -No Drug Therapy requiring intensive monitoring for toxicity (Heparin, Nitro, Insulin, Cardizem)? @ -No Were any procedures done? @ -No Diagnosis/symptom? @ -UTI, AMS Acute, or Chronic, or Acute on Chronic? @ -acute Uncomplicated (without systemic symptoms) or Complicated (systemic symptoms)? @ -complicated Side effects of treatment? @ -No Exacerbation, Progression, or Severe Exacerbation? @ -No Poses a threat to life or bodily function? How? (Chest pain, [place], [place], pneumonia, PE, COPD, DKA, ARF, appy, cholecystitis, CVA, Diverticulitis, Homicidal, Rosa cidal, threat to staff... and all critical care pts) @ -UTI has potential to develop into sepsis if not treated properly. Patient is starting treatment and will be monitored closely at the long-term. - Lab Data Result diagrams: 05/31/23 20:35 05/31/23 20:35 Lab Results 05/31/23 05/31/23 05/31/23 Range/Units 20:35 20:35 20:35 WBC 8.3 (3.8-10.6) k/uL RBC 4.80 (4.30-5.90) m/uL Hgb 12.7 L (13.0-17.5) gm/dL Hct 38.0 L (39.0-53.0) % MCV 79.1 L (80.0-100.0) fL MCH 26.5 (25.0-35.0) pg MCHC 33.4 (31.0-37.0) g/dL RDW 16.5 H (11.5-15.5) % Plt Count 247 (150-450) k/uL MPV 10.5 Neutrophils % (Manual) 72 % Band Neuts % (Manual) 1 % Lymphocytes % (Manual) 15 % Monocytes % (Manual) 12 % Neutrophils # (Manual) 6.00 (1.3-7.7) k/uL Lymphocytes # (Manual) 1.25 (1.0-4.8) k/uL Monocytes # (Manual) 1.00 (0-1.0) k/uL Nucleated RBCs 0 (0-0) /100 WBC Manual Slide Review Performed Large Platelets Present Poikilocytosis (manual Present Anisocytosis Slight Microcytosis Slight PT 12.2 H (9.0-12.0) sec INR 1.2 H (<1.2) APTT 30.5 H (22.0-30.0) sec Sodium 126 L (137-145) mmol/L Potassium 4.6 (3.5-5.1) mmol/L Chloride 88 L (98-107) mmol/L Carbon Dioxide 24 (22-30) mmol/L Anion Gap 14 mmol/L BUN 22 H (9-20) mg/dL Creatinine 1.70 H (0.66-1.25) mg/dL Est GFR (CKD-EPI)AfAm 43 (>60 ml/min/1.73 sqM) Est GFR (CKD-EPI)NonAf 37 (>60 ml/min/1.73 sqM) Glucose 152 H (74-99) mg/dL Calcium 9.1 (8.4-10.2) mg/dL Total Bilirubin 0.9 (0.2-1.3) mg/dL AST 36 (17-59) U/L ALT 21 (4-49) U/L Alkaline Phosphatase 70 (38-126) U/L Troponin I (0.000-0.034) ng/mL Total Protein 9.2 H (6.3-8.2) g/dL Albumin 4.3 (3.5-5.0) g/dL Urine Color Urine Appearance (Clear) Urine pH (5.0-8.0) Ur Specific [place] (1.001-1.035) Urine Protein (Negative) Urine Glucose (UA) (Negative) Urine Ketones (Negative) Urine Blood (Negative) Urine Nitrite (Negative) Urine Bilirubin (Negative) Urine Urobilinogen (<2.0) mg/dL Ur Leukocyte Esterase (Negative) Urine RBC (0-5) /hpf Urine WBC (0-5) /hpf Ur Squamous Epith Cells (0-4) /hpf Urine Bacteria (None) /hpf 05/31/23 05/31/23 Range/Units 20:35 23:18 WBC (3.8-10.6) k/uL RBC (4.30-5.90) m/uL Hgb (13.0-17.5) gm/dL Hct (39.0-53.0) % MCV (80.0-100.0) fL MCH (25.0-35.0) pg MCHC (31.0-37.0) g/dL RDW (11.5-15.5) % Plt Count (150-450) k/uL MPV Neutrophils % (Manual) % Band Neuts % (Manual) % Lymphocytes % (Manual) % Monocytes % (Manual) % Neutrophils # (Manual) (1.3-7.7) k/uL Lymphocytes # (Manual) (1.0-4.8) k/uL Monocytes # (Manual) (0-1.0) k/uL Nucleated RBCs (0-0) /100 WBC Manual Slide Review Large Platelets Poikilocytosis (manual Anisocytosis Microcytosis PT (9.0-12.0) sec INR (<1.2) APTT (22.0-30.0) sec Sodium (137-145) mmol/L Potassium (3.5-5.1) mmol/L Chloride (98-107) mmol/L Carbon Dioxide (22-30) mmol/L Anion Gap mmol/L BUN (9-20) mg/dL Creatinine (0.66-1.25) mg/dL Est GFR (CKD-EPI)AfAm (>60 ml/min/1.73 sqM) Est GFR (CKD-EPI)NonAf (>60 ml/min/1.73 sqM) Glucose (74-99) mg/dL Calcium (8.4-10.2) mg/dL Total Bilirubin (0.2-1.3) mg/dL AST (17-59) U/L ALT (4-49) U/L Alkaline Phosphatase (38-126) U/L Troponin I <0.012 (0.000-0.034) ng/mL Total Protein (6.3-8.2) g/dL Albumin (3.5-5.0) g/dL Urine Color Light Yellow Urine Appearance Clear (Clear) Urine pH 7.0 (5.0-8.0) Ur Specific [place] 1.007 (1.001-1.035) Urine Protein 1+ H (Negative) Urine Glucose (UA) Negative (Negative) Urine Ketones Negative (Negative) Urine Blood Trace H (Negative) Urine Nitrite Negative (Negative) Urine Bilirubin Negative (Negative) Urine Urobilinogen <2.0 (<2.0) mg/dL Ur Leukocyte Esterase Large H (Negative) Urine RBC 2 (0-5) /hpf Urine WBC 31 H (0-5) /hpf Ur Squamous Epith Cells 2 (0-4) /hpf Urine Bacteria Occasional H (None) /hpf Disposition Clinical Impression: UTI (urinary tract infection) Disposition: HOME SELF-CARE Condition: Good Instructions (If sedation given, give patient instructions): Urinary Tract Infection in Men (ED), Urinary Tract Infection in Older Adults (ED) Additional Instructions: Follow-up with PCP. Report back to ER with any new or worsening symptoms. Take medication as prescribed. Prescriptions: Sulfamethox-Tmp 800-160Mg [Bactrim DS 800-160 mg] 1 tab PO Q12HR 7 Days #14 tab Is patient prescribed a controlled substance at d/c from ED?: No Referrals: Zeeshan William MD [Primary Care Provider] - 1-2 days Time of Disposition: 23:47
[2023-05-31 22:05] LABS: Anisocytosis Slight; HGB 12.7 gm/dL (13.0-17.5); MCH 26.5 pg (25.0-35.0); MCHC 33.4 g/dL (31.0-37.0); MCV 79.1 fL (80.0-100.0); Mean Platelet Volume 10.5; Microcytosis Slight; Platelet Count 247 k/uL (150-450); RDW 16.5 % (11.5-15.5); WBC 8.3 k/uL (3.8-10.6)
[2023-05-31 22:51] LABS: Band Neutrophils % 1 %; Lymphocytes # (M) 1.25 k/uL (1.0-4.8); Neutrophils % (M) 72 %; Nucleated Red Blood Cells 0 /100 WBC (0-0); Total Cells Counted 100
[2023-05-31 22:52] LABS: Large Platelets Present; Poikilocytosis (M) Present
[2023-05-31 23:31] LABS: Appearance,Urine Clear (Clear); Bacteria,Urine Occasional /hpf; Bilirubin,Urine Negative (Negative); Blood,Urine Trace (Negative); Glucose,Urine (UA) Negative (Negative); Ketones,Urine Negative (Negative); Leukocyte Esterase,Urine Large (Negative); Nitrite,Urine Negative (Negative); Protein,Urine 1+ (Negative); RBC,Urine 2 /hpf (0-5); Specific Gravity,Urine 1.007 (1.001-1.035); Squamous Epithelial Cell,Urine 2 /hpf (0-4); Urobilinogen,Urine <2.0 mg/dL (<2.0); WBC,Urine 31 /hpf (0-5)
[2023-05-31 23:33] LABS: Color,Urine Light Yellow
[2023-05-31] MEDS ORDERED: SULFAMETHOX-TMP 800-160MG 1 EACH TAB PO STA (23:47)
[2023-06-01 01:11] VITALS: BP 126/105; PULSE 89; TEMP 98.1
== END 2023-06-01 01:35 | disposition home or self-care (01) ==
LOC: EC 19:45
DX: N39.0 Urinary tract infection, site not specified (principal); R41.82 Altered mental status, unspecified; E87.1 Hypo-osmolality and hyponatremia; E11.9 Type 2 diabetes mellitus without complications; I10 Essential (primary) hypertension; Z79.01 Long term (current) use of anticoagulants; Z79.899 Other long term (current) drug therapy; Z86.73 Personal history of transient ischemic attack (TIA), and cerebral infarction without residual deficits; Z86.718 Personal history of other venous thrombosis and embolism; Z88.1 Allergy status to other antibiotic agents; Z88.8 Allergy status to other drugs, medicaments and biological substances
CPT/HCPCS: 36415; 71046; 80053; 81001; 84484; 85025; 85610; 85730; 87086; 93005; 99284

== ENCOUNTER 2023-06-08 00:26 | Inpatient (IN) | payer OTHER ==
[2023-06-08] MEDS ORDERED: HYDROmorphone 1 MG/ML 1 ML SYRINGE IVP STA ×2 (00:57→03:36)
[2023-06-08 01:47] LABS: Anisocytosis Slight; HCT 31.7 % (39.0-53.0); HGB 10.4 gm/dL (13.0-17.5); MCH 26.2 pg (25.0-35.0); MCHC 32.7 g/dL (31.0-37.0); MCV 80.1 fL (80.0-100.0); Mean Platelet Volume 8.7; Platelet Count 302 k/uL (150-450); RBC 3.96 m/uL (4.30-5.90); RDW 16.2 % (11.5-15.5); WBC 23.6 k/uL (3.8-10.6)
[2023-06-08 02:07] LABS: ALT 19 U/L (4-49); AST 23 U/L (17-59); African American GFR (CKD) 23 (>60 ml/min/1.73 sqM); Albumin 3.8 g/dL (3.5-5.0); Alkaline Phosphatase 64 U/L (38-126); Anion Gap 8 mmol/L; Blood Urea Nitrogen 30 mg/dL (9-20); Calcium 8.3 mg/dL (8.4-10.2); Carbon Dioxide 26 mmol/L (22-30); Chloride 93 mmol/L (98-107); Glucose 129 mg/dL (74-99); Non-African American GFR(CKD) 20 (>60 ml/min/1.73 sqM); Potassium 5.6 mmol/L (3.5-5.1); Sodium 127 mmol/L (137-145); Total Bilirubin 0.5 mg/dL (0.2-1.3); Total Protein 7.9 g/dL (6.3-8.2)
[2023-06-08 02:15] LABS: NT-Pro-B-Type Natriuretic Pept 2260 pg/mL
[2023-06-08 02:32] LABS: Anisocytosis (M) Present; Lymphocytes # (M) 0.94 k/uL (1.0-4.8); Monocytes # (M) 3.78 k/uL (0-1.0); Neutrophils # (M) 18.88 k/uL (1.3-7.7); Neutrophils % (M) 80 %; Nucleated Red Blood Cells 0 /100 WBC (0-0); Total Cells Counted 100
[2023-06-08 02:49] LABS: INR 1.2 (<1.2); Partial Thromboplastin Time 31.3 sec (22.0-30.0)
[2023-06-08] MEDS ORDERED: PNEUMONIA PROTOCOL UTILIZED 1 EACH MISC PO PRN (03:13)
[2023-06-08] MEDS ORDERED: AZITHROMYCIN 500 MG in SODIUM CHLORIDE 0.9% 250 ML IVPB STA (03:13)
[2023-06-08] MEDS ORDERED: PIPERACILLIN-TAZOBACTAM 3.375 GM in SODIUM CHLORIDE 0.9% 100 ML IVPB STA (03:15)
--- NOTE | 2023-06-08 03:15 | ED ---
General Adult HPI - General Chief complaint: Fall Stated complaint: Fall, hip pain, fever Time Seen by Provider: 06/08/23 00:30 Source: patient, EMS Mode of arrival: EMS Limitations: no limitations - History of Present Illness Initial comments: 78-year-old male presents to the emergency department from [facility]. We are originally told that the patient suffered a fall early in the morning. He was complaining of right hip pain. He has had a previous right hip replacement in the very remote past. They did an x-ray and found that there was a fracture and therefore transported the patient to the hospital. Upon arrival the patient is febrile with oxygen saturation saturations of 73%. He has very wet sounding lungs. The patient has no complaints. Does admit that he has some right hip pain but denies any trouble breathing. Reports no shortness of breath. Denies cough or fevers. Reports that his hip was replaced in [place] but cannot remember the physician's name as it was done so long ago. I do receive a call from the nurse practitioner in the morning. She states that the patient was entirely transferred for the wrong indications. States that the patient did have a fall and they completed an x-ray however there was no fracture. She states that the patient was ambulatory on the extremity 3 different times yesterday without difficulty - Related Data Home Medications Medication Instructions Recorded Confirmed Atorvastatin [Lipitor] 10 mg PO HS 10/29/18 05/27/23 Magnesium Oxide 400 mg PO DAILY 07/07/21 05/27/23 Metoprolol Tartrate [Lopressor] 50 mg PO DAILY 07/07/21 05/27/23 Apixaban [Eliquis] 2.5 mg PO BID 11/11/22 05/27/23 Gabapentin [Neurontin] 300 mg PO BID 11/11/22 05/27/23 L.acidoph,Paracasei, B.lactis 1 cap PO DAILY 11/11/22 05/27/23 [Probiotic] Sennosides [Senokot] 8.6 mg PO HS 11/11/22 05/27/23 Calcium Carbonate [Calcium] 600 mg PO BID 01/10/23 05/27/23 Multivit-Mins/Iron/Folic/Lycop 1 tab PO DAILY 01/10/23 05/27/23 [Centrum Men's Tablet] oxyCODONE-APAP 7.5-325MG [Percocet 1 tab PO 5XD PRN 01/10/23 05/27/23 7.5-325 mg] Menthol [Biofreeze] 1 applic TOPICAL QID PRN 05/18/23 05/27/23 Menthol-Zinc Oxide Oint 1 applic TOPICAL TID PRN 05/18/23 05/27/23 [Calmoseptine Ointment] Medihoney 1 applic TOPICAL DAILY 05/27/23 05/27/23 Previous Rx's Medication Instructions Recorded Tamsulosin [Flomax] 0.4 mg PO BID #0 capsule 09/13/21 Cefdinir [Omnicef] 300 mg PO Q12HR #2 capsule 05/21/23 Sulfamethox-Tmp 800-160Mg [Bactrim 1 tab PO Q12HR 7 Days #14 tab 05/31/23 DS 800-160 mg] Allergies Allergy/AdvReac Type Severity Reaction Status Date / Time ciprofloxacin [From Cipro] Allergy Unknown Verified 05/31/23 19:53 doxazosin Allergy Unknown Verified 05/31/23 19:53 Review of Systems ROS Statement: Those systems with pertinent positive or pertinent negative responses have been documented in the HPI. ROS Other: All systems not noted in ROS Statement are negative. Past Medical History Past Medical History: CVA/TIA, Diabetes Mellitus, Deep Vein Thrombosis (DVT), Hypertension, Osteoarthritis (OA) Additional Past Medical History / Comment(s): wound center patient, states has DVT x3 in rt leg, past hx of diabetes and HTN, no longer requires rx since weight loss. states TIA in 2010 residual muscle weakness in rt leg, wears brace rt leg, uti . 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, pacemaker/ACID placed 2017 History of Any Multi-Drug Resistant Organisms: MRSA Date of last positivie culture/infection: 02/18/23 MDRO Source:: Sacral Wound Past Surgical History: Back Surgery, Hernia Repair, Orthopedic Surgery, Pacemaker Additional Past Surgical History / Comment(s): cervical fusion, right hip r eplacement, cataract surgery, penile implant Past Anesthesia/Blood Transfusion Reactions: No Reported Reaction Type of Cardiac Device: Permanent Pacemaker, AICD, Unknown Device Placement Date:: May 2018 Past Psychological History: No Psychological Hx Reported Smoking Status: Never smoker Past Alcohol Use History: None Reported Past Drug Use History: None Reported - Past Family History Mother Family Medical History: Cancer Father Family Medical History: Cancer, Coronary Artery Disease (CAD) General Exam Limitations: no limitations Course Vital Signs 06/08/23 06/08/23 06/08/23 00:28 02:00 02:05 Temperature 98.7 F Pulse Rate 91 Respiratory 16 Rate Blood Pressure 108/58 O2 Sat by Pulse 75 L 77 L 95 Oximetry 06/08/23 06/08/23 06/08/23 03:00 04:21 05:20 Temperature 100.5 F H 100.3 F H Pulse Rate 94 103 H 91 Respiratory 16 16 Rate Blood Pressure 128/41 146/69 139/62 O2 Sat by Pulse 94 L 95 94 L Oximetry 06/08/23 06/08/23 06/08/23 05:44 06:26 06:58 Temperature 99.8 F H 99.2 F Pulse Rate 93 Respiratory 16 Rate Blood Pressure 118/55 O2 Sat by Pulse 96 Oximetry 06/08/23 06/08/23 08:22 09:07 Temperature 98.8 F Pulse Rate 92 90 Respiratory 20 20 Rate Blood Pressure 121/56 120/59 O2 Sat by Pulse 97 97 Oximetry - Reevaluation(s) Reevaluation #1: 06/08/23 08:[address] Gonsalez - requesting dedicated ct of right hip. States patient is okay to be admitted here Medical Decision Making - Medical Decision Making Was pt. sent in by a medical professional or institution (, PA, [employer], urgent care, hospital, or skilled nursing...) When possible be specific @ -[facility] Did you speak to anyone other than the patient for history (EMS, parent, family, police, friend...)? What history was obtained from this source @ -I spoke with EMS and also the nurse practitioner over at [facility] Did you review nursing and triage notes (agree or disagree)? Why? @ -I reviewed and agree with nursing and triage notes Were old charts reviewed (outside hosp., previous admission, EMS record, old EKG, old radiological studies, urgent care reports/EKG's, skilled nursing records)? Report findings @ -I reviewed patient's previous admission for pneumonia which was in early April Differential Diagnosis (chest pain, altered mental status, abdominal pain women, abdominal pain men, vaginal bleeding, weakness, fever, dyspnea, syncope, headache, dizziness, GI bleed, back pain, seizure, CVA, palpatations, mental health, musculoskeletal)? @ -Differential Fever: Pneumonia, viral URI, endocarditis, myocarditis, pericarditis, otitis, sinusitis, peritonsillar Abscess, retropharyngeal Abscess, epiglottitis, peritonitis, appendicitis, Doretha cystitis, diverticulitis, hepatitis, colitis, UTI, PID, TOA, pyelonephritis, prostatitis, epididymitis, meningitis, encephal itis, pulmonary embolism, CVA, thyroid storm, pancreatitis, adrenal crisis, cavernous sinus thrombosis, this is not meant to be an all-inclusive list. EKG interpreted by me (3pts min.). @ -EKG demonstrates sinus rhythm with a rate of 89. VA interval 174. QRS 154. QTC of 408. Right axis deviation. Right bundle branch block. No ST segment elevation or depression X-rays interpreted by me (1pt min.). @ -Yes and demonstrates a large right-sided pneumonia CT interpreted by me (1pt min.). @ -CT chest continues to demonstrate large right-sided pneumonia. Questionable loosening of the patient's hardware U/S interpreted by me (1pt. min.). @ -None done What testing was considered but not performed or refused? (CT, X-rays, U/S, labs)? Why? @ -None What meds were considered but not given or refused? Why? @ -None Did you discuss the management of the patient with other professionals (professionals i.e. , PA, [employer], lab, RT, psych nurse, director of social services, airframe technician, teacher, air antisubmarine officer, manager case management)? Give summary @ -I discussed management with Dr. Gonsalez. He states that the patient should be able to be admitted to our facility with his current orthopedic complaint. I also spoke with Dr. Inman for admission Was smoking cessation discussed for >3mins.? @ -No Was critical care preformed (if so, how long)? @ -No Were there social determinants of health that impacted care today? How? (Homelessness, low income, unemployed, alcoholism, drug addiction, transportation, low edu. Level, literacy, decrease access to med. care, intermediate, rehab)? @ -Patient presented from extended care facility Was there de-escalation of care discussed even if they declined (Discuss DNR or withdrawal of care, Hospice)? DNR status @ -No What co-morbidities impacted this encounter? (DM, HTN, Smoking, COPD, CAD, Cancer, CVA, ARF, Chemo, Hep., AIDS, mental health diagnosis, sleep apnea, morbid obesity)? @ -Recurrent pneumonia Was patient admitted / discharged? Hospital course, mention meds given and route, prescriptions, significant lab abnormalities, going to OR and other pertinent info. @ -Upon arrival patient was placed into room 6. A thorough history and physical exam was performed. EMS states that the patient was being transferred for a known fracture however he does arrive hypoxic with a fever. He does have very audible lung sounds. He is placed on oxygen. IV is established. La boratory studies are conducted. He does have an x-ray performed of his right hip which does not demonstrate a fracture. As I am told that the patient does have a known fracture I did CT his chest, abdomen and pelvis. CT continues to demonstrate his large right-sided pneumonia. Reports to possible loosening of his hardware. I did discuss this with Dr. Steward. He states that he wants a dedicated CT of the patient's right lower extremity however does feel that the patient could be admitted for facility. I spoke with Dr. Inman who agreed to admit the patient. He was started on IV fluids, pain control as well as antibiotics for his suspected pneumonia. I did identify the patient's source of infection around 3:15 AM as I did read the x-ray myself. Radiologist does read the x-ray as negative and therefore only confirms the pneumonia on CT which was completed at 7:36 am. I did speak with the care team at [facility] in regards to the patient's status and that he would be admitted Undiagnosed new problem with uncertain prognosis? @ -Yes Drug Therapy requiring intensive monitoring for toxicity (Heparin, Nitro, Insulin, Cardizem)? @ -No Were any procedures done? @ -No Diagnosis/symptom? @ -Acute hypoxic respiratory failure, healthcare associated pneumonia, consider aspiration pneumonia, leukocytosis, fall, possible hardware loosening right leg Acute, or Chronic, or Acute on Chronic? @ -Acute Uncomplicated (without systemic symptoms) or Complicated (systemic symptoms)? @ -Complicated Side effects of treatment? @ -No Exacerbation, Progression, or Severe Exacerbation? @ -No Poses a threat to life or bodily function? How? (Chest pain, [place], [place], pneumonia, PE, COPD, DKA, ARF, appy, cholecystitis, CVA, Diverticulitis, Homicidal, Suicidal, threat to staff... and all critical care pts) @ -No - Lab Data Result diagrams: 06/08/23 01:20 06/08/23 01:20 Lab Results 06/08/23 06/08/23 06/08/23 Range/Units 01:20 01:20 01:20 WBC 23.6 H (3.8-10.6) k/uL RBC 3.96 L (4.30-5.90) m/uL Hgb 10.4 L (13.0-17.5) gm/dL Hct 31.7 L (39.0-53.0) % MCV 80.1 (80.0-100.0) fL MCH 26.2 (25.0-35.0) pg MCHC 32.7 (31.0-37.0) g/dL RDW 16.2 H (11.5-15.5) % Plt Count 302 (150-450) k/uL MPV 8.7 Neutrophils % (Manual) 80 % Lymphocytes % (Manual) 4 % Monocytes % (Manual) 16 % Neutrophils # (Manual) 18.88 H (1.3-7.7) k/uL Lymphocytes # (Manual) 0.94 L (1.0-4.8) k/uL Monocytes # (Manual) 3.78 H (0-1.0) k/uL Nucleated RBCs 0 (0-0) /100 WBC Anisocytosis Slight Anisocytosis (manual) Present PT 12.0 (9.0-12.0) sec INR 1.2 H (<1.2) APTT 31.3 H (22.0-30.0) sec Sodium 127 L (137-145) mmol/L Potassium 5.6 H (3.5-5.1) mmol/L Chloride 93 L (98-107) mmol/L Carbon Dioxide 26 (22-30) mmol/L Anion Gap 8 mmol/L BUN 30 H (9-20) mg/dL Creatinine 2.89 H (0.66-1.25) mg/dL Est GFR (CKD-EPI)AfAm 23 (>60 ml/min/1.73 sqM) Est GFR (CKD-EPI)NonAf 20 (>60 ml/min/1.73 sqM) Glucose 129 H (74-99) mg/dL Plasma Lactic Acid Jason (0.7-2.0) mmol/L Calcium 8.3 L (8.4-10.2) mg/dL Total Bilirubin 0.5 (0.2-1.3) mg/dL AST 23 (17-59) U/L ALT 19 (4-49) U/L Alkaline Phosphatase 64 (38-126) U/L Troponin I (0.000-0.034) ng/mL NT-Pro-B Natriuret Pep 2260 pg/mL Total Protein 7.9 (6.3-8.2) g/dL Albumin 3.8 (3.5-5.0) g/dL Coronavirus (PCR) (Not Detectd) 06/08/23 06/08/23 06/08/23 Range/Units 01:20 01:20 05:12 WBC (3.8-10.6) k/uL RBC (4.30-5.90) m/uL Hgb (13.0-17.5) gm/dL Hct (39.0-53.0) % MCV (80.0-100.0) fL MCH (25.0-35.0) pg MCHC (31.0-37.0) g/dL RDW (11.5-15.5) % Plt Count (150-450) k/uL MPV Neutrophils % (Manual) % Lymphocytes % (Manual) % Monocytes % (Manual) % Neutrophils # (Manual) (1.3-7.7) k/uL Lymphocytes # (Manual) (1.0-4.8) k/uL Monocytes # (Manual) (0-1.0) k/uL Nucleated RBCs (0-0) /100 WBC Anisocytosis Anisocytosis (manual) PT (9.0-12.0) sec INR (<1.2) APTT (22.0-30.0) sec Sodium (137-145) mmol/L Potassium (3.5-5.1) mmol/L Chloride (98-107) mmol/L Carbon Dioxide (22-30) mmol/L Anion Gap mmol/L BUN (9-20) mg/dL Creatinine (0.66-1.25) mg/dL Est GFR (CKD-EPI)AfAm (>60 ml/min/1.73 sqM) Est GFR (CKD-EPI)NonAf (>60 ml/min/1.73 sqM) Glucose (74-99) mg/dL Plasma Lactic Acid Jason 0.7 (0.7-2.0) mmol/L Calcium (8.4-10.2) mg/dL Total Bilirubin (0.2-1.3) mg/dL AST (17-59) U/L ALT (4-49) U/L Alkaline Phosphatase (38-126) U/L Troponin I <0.012 (0.000-0.034) ng/mL NT-Pro-B Natriuret Pep pg/mL Total Protein (6.3-8.2) g/dL Albumin (3.5-5.0) g/dL Coronavirus (PCR) Not Detected (Not Detectd) Disposition Clinical Impression: Fall, Right hip pain, Hypoxia, HCAP (healthcare-associated pneumonia), Leukocytosis, LACHELLE (acute kidney injury) Disposition: ADMITTED IP TO THIS [facility] Condition: Serious Is patient prescribed a controlled substance at d/c from ED?: No Time of Disposition: 08:12 Decision to Admit Reason: Admit from EC Decision Date: 06/08/23 Decision Time: 08:12
[2023-06-08] MEDS: SODIUM CHLORIDE 0.9% 1,000 ML IV SCH ×3 (03:47→17:08)
[2023-06-08] MEDS ORDERED: ACETAMINOPHEN TAB 500 MG TAB PO STA (04:24)
--- NOTE | 2023-06-08 05:38 | XR ---
EXAM: XR Right Hip With Pelvis When Performed, 2 or 3 Views CLINICAL HISTORY: ITS.REASON XR Reason: fall, pain TECHNIQUE: Two or three views of the right hip with pelvis when performed. COMPARISON: No relevant prior studies available. FINDINGS/IMPRESSION: 1. Right hip arthroplasty without radiographically evident right hip fracture or hardware complication. 2. Cortical and trabecular irregularity within the left femoral neck may be related to the projection. Correlate for left sided pain. 3. Severe osteopenia which limits evaluation. If there is persistent concern consider MRI.
--- NOTE | 2023-06-08 05:40 | XR ---
EXAM: XR Chest, 1 View CLINICAL HISTORY: ITS.REASON XR Reason: Cough/pain TECHNIQUE: Frontal view of the chest. COMPARISON: Chest x-ray 05/31/2023. FINDINGS/IMPRESSION: Suboptimal positioning and projection. No grossly evident active disease.
--- NOTE | 2023-06-08 07:46 | CT ---
EXAMINATION TYPE: CT ChestAbdPelvis wo con DATE OF EXAM: 06/08/2023 INDICATION: Fall leg pain COMPARISON: 05/27/2023 CT DLP: 1049.8 mGycm CONTRAST: None TECHNIQUE: Axial images at 5 mm thick sections. Reconstructed images in the coronal plane. Delayed images through the kidneys. FINDINGS: CT CHEST: Portion of the thyroid visualized is normal. There is a small right pleural effusion. Large consolidations at the right posterior lung base. There is pleural calcification present in the posterior lung bases bilaterally. No enlarged mediastinal or hilar adenopathy is evident. The ascending aorta diameter at the level of the main pulmonary artery is 4.1 cm. The main pulmonary artery diameter at the bifurcation is 3.[address] ABDOMEN: Liver: Normal Spleen: Normal Pancreas: Atrophic Adrenal glands: The adrenal glands are normal. Gallbladder: Normal Kidneys: No masses are evident. No hydronephrosis is present. No cysts are present. No renal stone s are evident. Aorta: Vascular calcification is within the aorta. Inferior vena cava: Normal. CT PELVIS: Loops of bowel within the abdomen and pelvis are normal. This study is without oral contrast tyler l lesion. Appendix: Not visualized. No dilated tubular structure or inflammatory change is evident. Urinary bladder: Normal. Genitourinary structures: Penile pump is present on the right. Prostate appears normal Osseous structures: No suspicious lytic or sclerotic lesions. There is a right hip prosthesis. There appears to be expansion and lucency adjacent to the proximal prosthesis. There is lucency within the cortex near the distal tip of the prosthesis. Correlate for loosening fracture of the right proximal femur IMPRESSION: 1. Right lower lobe consolidation. Correlate for pneumonia. 2. Pleural calcifications posterior lung bases suggestive for prior asbestos exposure. 3. Right proximal femoral fracture adjacent prosthesis lucency suggesting underlying loosening
[2023-06-08] MEDS ORDERED: NALOXONE 0.4 MG/ML 1 ML VIAL IV PRN (08:12)
[2023-06-08] MEDS ORDERED: IBUPROFEN 400 MG TAB PO PRN (08:12)
[2023-06-08] MEDS: ACETAMINOPHEN TAB 325 MG TAB PO PRN (10:21)
--- NOTE | 2023-06-08 11:00 | CT ---
EXAMINATION TYPE: CT lower extremity RT wo con DATE OF EXAM: 06/08/2023 COMPARISON: None HISTORY: right leg pain CT DLP: 988.5 mGycm Automated exposure control for dose reduction was used. Contrast: None Technique: Axial images 3 mm thick sections. Reconstructed images in the coronal and sagittal planes. FINDINGS: There is a right femoral prosthesis. There is lucency surrounding the proximal femoral prosthesis whi ch could indicate loosening. Within the more distal stem portion of the femoral prosthesis there are lucencies within the posterior femoral cortex. Nondisplaced fracture should be considered. Findings a re stable from the 06/08/2023 chest abdomen and pelvis CT. Femur otherwise appears intact. Some osteoporosis may be at the knee joint space. Tibia and fibula as visualized appear intact. Osteoporosis may be at the ankle joint space. Three-D reconstructed images are reviewed on the computer. 2-D reconstructive images are reviewed. Fr acture appears be well-visualized adjacent hip prosthesis sagittal plane images. IMPRESSION: 1. SUSPECTED LOOSENING AND ACUTE FRACTURE OF THE PROXIMAL RIGHT HIP ADJACENT TO THE PROSTHESIS. CLINI KAMI CORRELATION IS RECOMMENDED
[2023-06-08 12:01] LABS: Glucose,Whole Blood 131 mg/dL (70-110)
[2023-06-08] MEDS: PIPERACILLIN-TAZOBACTAM 3.375 GM in SODIUM CHLORIDE 0.9% 100 ML IVPB SCH ×2 (13:01→21:20)
--- NOTE | 2023-06-08 13:09 | P.CNOR ---
History of Present Illness - [facility] Consult date: 06/08/23 Requesting physician: Christal Sweeney Consult reason: fracture (Right hip pain, possible periprosthetic fracture some: Status post fall) History of present illness: Patient is a very pleasant 78-year-old male who is seen and examined at bedside for further evaluation of his right hip. Patient normally resides at [facility]. He was transferred to the [facility] for further evaluation. There has been some conflicting information as to whether he was transferred in regards to possible right hip fracture or due to pneumonia. He has undergone further workup since his presentation to the emergency department. He has been admitted. Patient was hypoxic with fever at the time of presentation. His temperature was 101.6 of presentation. He is currently 98.1. He was diagnosed with pneumonia. He is currently being treated in this regard. Patient states he is known to have sustained a cervical injury in 1988 resulting in chronic significant weakness with his right upper extremity and right lower extremity. He is not a regular ambulator on his right lower extremity. He states he's been unable to flex his knee or lift his leg off the bed since 1988 following that injury. He does have reduced dorsiflexion and plantar flexion on the right lower extremity which is also chronic. He states he normally is able to ambulate with the assistance of a walker or utilizes a wheelchair. He does not ambulate independently without a walking aid. He did sustain a fall a couple days ago and admits to some pain on the outside of his right hip. He does not have any pain with internal and external rotation of the right hip. He is currently being seen by medicine. He has had multiple laboratory testing was ordered. Document a history also states patient has a history of CVA/TIA which resulted in further right-sided weakness. Past Medical History Past Medical History: CVA/TIA, Diabetes Mellitus, Deep Vein Thrombosis (DVT), Hypertension, Osteoarthritis (OA) Additional Past Medical History / Comment(s): wound center patient, states has DVT x3 in rt leg, past hx of diabetes and HTN, no longer requires rx since weight loss. states TIA in 2010 residual muscle weakness in rt leg, wears brace rt leg, uti . 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, pacemaker/ACID placed 2017 History of Any Multi-Drug Resistant Organisms: MRSA Year Discovered:: 02/18/23 MDRO Source:: Sacral Wound Past Surgical History: Back Surgery, Hernia Repair, Orthopedic Surgery, Pacemaker Additional Past Surgical History / Comment(s): cervical fusion, right hip replacement, cataract surgery, penile implant Past Anesthesia/Blood Transfusion Reactions: No Reported Reaction Type of Cardiac Device: Permanent Pacemaker, AICD, Unknown Device Placement Date:: May 2018 Past Psychological History: No Psychological Hx Reported Smoking Status: Never smoker Past Alcohol Use History: None Reported Past Drug Use History: None Reported - Past Family History Mother Family Medical History: Cancer Father Family Medical History: Cancer, Coronary Artery Disease (CAD) Medications and Allergies Home Medications Medication Instructions Recorded Confirmed Type Atorvastatin [Lipitor] 10 mg PO HS 10/29/18 06/08/23 History Magnesium Oxide 400 mg PO DAILY 07/07/21 06/08/23 History Metoprolol Tartrate [Lopressor] 50 mg PO DAILY 07/07/21 06/08/23 History Tamsulosin [Flomax] 0.4 mg PO BID #0 capsule 09/13/21 06/08/23 Rx Apixaban [Eliquis] 2.5 mg PO BID 11/11/22 06/08/23 History Gabapentin [Neurontin] 300 mg PO BID 11/11/22 06/08/23 History L.acidoph,Paracasei, B.lactis 1 cap PO DAILY 11/11/22 06/08/23 History [Probiotic] Sennosides [Senokot] 8.6 mg PO HS PRN 11/11/22 06/08/23 History Calcium Carbonate [Calcium] 600 mg PO BID 01/10/23 06/08/23 History Multivit-Mins/Iron/Folic/Lycop 1 tab PO DAILY 01/10/23 06/08/23 History [Centrum Men's Tablet] oxyCODONE-APAP 7.5-325MG [Percocet 1 tab PO 5XD PRN 01/10/23 06/08/23 History 7.5-325 mg] Menthol-Zinc Oxide Oint 1 applic TOPICAL TID PRN 05/18/23 06/08/23 History [Calmoseptine Ointment] Sulfamethox-Tmp 800-160Mg [Bactrim 1 tab PO Q12HR 7 Days #14 tab 05/31/23 06/08/23 Rx DS 800-160 mg] methocarbamoL 1,000 mg PO TID 06/08/23 06/08/23 History Allergies Allergy/AdvReac Type Severity Reaction Status Date / Time ciprofloxacin [From Cipro] Allergy Unknown Verified 06/08/23 11:19 doxazosin Allergy Unknown Verified 06/08/23 11:19 Physical Examination Physical Exam: Patient is awake, alert, and oriented 3 Vital signs stable Adequate chest excursion with deep inspiration and expiration No signs or symptoms of DVT; no calf pain Significant muscle atrophy over the right upper extremity and right lower extremity No pain with internal and external rotation of the right hip Patient is unable to lift his right lower extremity off of the bed Patient is unable to perform hip flexion on the right Reduced dorsiflexion and plantarflexion on the right Segura catheter intact Results Pertinent studies: Right lower extremity CT performed on 06/08/2023: Evidence of right total hip arthroplasty with lucency surrounding the proximal femoral prosthesis which would indicate loosening with lucencies within the posterior femoral cortex of the more distal stem portion of the femoral prosthesis X-rays of the right hip and pelvis taken on 06/08/2023: Evidence of right total hip arthroplasty without obvious fracture or hardware complications; severe osteopenia limiting evaluation - Labs Labs: Abnormal Lab Results - Last 24 Hours (Table) 06/08/23 06/08/23 06/08/23 Range/Units 01:20 01:20 01:20 WBC 23.6 H (3.8-10.6) k/uL RBC 3.96 L (4.30-5.90) m/uL Hgb 10.4 L (13.0-17.5) gm/dL Hct 31.7 L (39.0-53.0) % RDW 16.2 H (11.5-15.5) % Neutrophils # (Manual) 18.88 H (1.3-7.7) k/uL Lymphocytes # (Manual) 0.94 L (1.0-4.8) k/uL Monocytes # (Manual) 3.78 H (0-1.0) k/uL INR 1.2 H (<1.2) APTT 31.3 H (22.0-30.0) sec Sodium 127 L (137-145) mmol/L Potassium 5.6 H (3.5-5.1) mmol/L Chloride 93 L (98-107) mmol/L BUN 30 H (9-20) mg/dL Creatinine 2.89 H (0.66-1.25) mg/dL Glucose 129 H (74-99) mg/dL POC Glucose (mg/dL) (70-110) mg/dL Calcium 8.3 L (8.4-10.2) mg/dL 06/08/23 Range/Units 11:59 WBC (3.8-10.6) k/uL RBC (4.30-5.90) m/uL Hgb (13.0-17.5) gm/dL Hct (39.0-53.0) % RDW (11.5-15.5) % Neutrophils # (Manual) (1.3-7.7) k/uL Lymphocytes # (Manual) (1.0-4.8) k/uL Monocytes # (Manual) (0-1.0) k/uL INR (<1.2) APTT (22.0-30.0) sec Sodium (137-145) mmol/L Potassium (3.5-5.1) mmol/L Chloride (98-107) mmol/L BUN (9-20) mg/dL Creatinine (0.66-1.25) mg/dL Glucose (74-99) mg/dL POC Glucose (mg/dL) 131 H (70-110) mg/dL Calcium (8.4-10.2) mg/dL H & H 06/08/23 Range/Units 01:20 Hgb 10.4 L (13.0-17.5) gm/dL Hct 31.7 L (39.0-53.0) % Coagulation 06/08/23 Range/Units 01:20 INR 1.2 H (<1.2) Result Diagrams: 06/08/23 01:20 06/08/23 01:20 Assessment and Plan Assessment: Assessment: Right hip chronic hardware loosening versus possible periprosthetic fracture without displacement Right hip pain status post fall History right total hip arthroplasty performed in approximately 2012. Significant chronic right upper extremity lower extremity weakness following previous injury Cervical injury in 1988 resulting in right-sided weakness Non-regular ambulator on the right lower extremity Pneumonia Diabetes mellitus Hypertension History of DVT History of pacemaker/ACID placement 2017 (1) Status post fall Current Visit: Yes Status: Acute Code(s): Z91.81 - HISTORY OF FALLING SNOMED Code(s): 713330737 (2) History of total right hip arthroplasty Current Visit: Yes Status: Acute Code(s): Z96.641 - PRESENCE OF RIGHT ARTIFICIAL HIP JOINT SNOMED Code(s): 330681240371 (3) Hypertension Current Visit: Yes Status: Acute Code(s): I10 - ESSENTIAL (PRIMARY) HYPERTENSION SNOMED Code(s): 08723931 (4) History of DVT (deep vein thrombosis) Current Visit: Yes Status: Acute Code(s): Z86.718 - PERSONAL HISTORY OF OTHER VENOUS THROMBOSIS AND EMBOLISM SNOMED Code(s): 219803692 (5) History of pacemaker Current Visit: Yes Status: Acute Code(s): Z95.0 - PRESENCE OF CARDIAC PACEMAKER SNOMED Code(s): 989750176 (6) Diabetes mellitus Current Visit: Yes Status: Acute Code(s): E11.9 - TYPE 2 DIABETES MELLITUS WITHOUT COMPLICATIONS SNOMED Code(s): 05130785 (7) Weakness of right side of body Current Visit: Yes Status: Acute Code(s): R53.1 - WEAKNESS SNOMED Code(s): 725527582 (8) Periprosthetic fracture around internal prosthetic hip joint Current Visit: Yes Status: Acute Code(s): M97.8XXA - PERIPROSTH FRACTURE AROUND OTHER INTERNAL PROSTH JOINT, INIT; Z96.649 - PRESENCE OF UNSPECIFIED ARTIFICIAL HIP JOINT SNOMED Code(s): 260461612 (9) Hip pain, right Current Visit: Yes Status: Acute Code(s): M25.551 - PAIN IN RIGHT HIP SNOMED Code(s): 71739319 (10) Pneumonia Current Visit: No Status: Acute Code(s): J18.9 - PNEUMONIA, UNSPECIFIED ORGANISM SNOMED Code(s): 634780036 (11) Pyrexia Current Visit: No Status: Acute Code(s): R50.9 - FEVER, UNSPECIFIED SNOMED Code(s): 594010732 Plan: Plan: 1. Patient has been discussed in detail with Dr. Sanjeev Gonsalez and we have reviewed his imaging together. Patient does have a significant medical history which she states he's had significant right-sided weakness with his upper extremity lower extremity following a cervical spine injury in 1988. Since that time he has not been a regular ambulator. He does have a history of a right total hip arthroplasty from approximately 2012. He states he normally resides at [facility]. He has had some increased right-sided hip pain status post fall couple days ago. He states normally he is unable to ambulate independently on his right lower extremity. He does require a wheelchair or walker to aid in ambulation. On physical examination he has some mild pain with palpation of the outside of his right hip. He does not have any pain with internal and external rotation of the right hip. He has significantly limited range of motion of the right lower extremity which is chronic. Patient is also being seen examined by medicine and is being treated for pneumonia. We did discuss his imaging which could show evidence of right hip chronic hardware loosening versus possible periprosthetic fracture without displacement. Given his regular ambulatory s tatus, significant chronic right lower extremity weakness, and physical examination, we will currently plan to have him work to conservative treatment options. We are not currently planning for further surgical intervention at his right hip. We discussed patient may ambulate with the assistance of a walker with toe-touch weightbearing only on the right lower extremity. He may utilize a wheelchair to aid in ambulation as needed. He may transfer to a wheelchair. At this time, when medically stable, patient will be cleared to return back to [facility]. We will continue to follow him in the outpatient setting. Currently, we'll plan have him follow-up in approximately 2-3 weeks for further evaluation. Patient may follow-up with Micky Bland PA-C or Dr. Sanjeev Gonsalez at [facility] in 2-3 weeks following discharge. We could consider obtaining further imaging at that time depending on his progress with conservative care. We would try to exhaust all conservative treatment options before proceeding forward with further surgical intervention at his right hip. Patient does feel this is a good plan of care. 2. Patient will continue be seen examined by medicine for his other medical diagnoses including pneumonia Time with Patient: Greater than 30 (Including obtaining history, physical examination, reviewing of imaging, and dictation.)
--- NOTE | 2023-06-08 13:34 | US ---
EXAMINATION TYPE: US renals and bladder DATE OF EXAM: 06/08/2023 COMPARISON: CT dated 06/08/2023 and US dated 09/11/2021 CLINICAL INDICATION: Male, 78 years old with history of alma; EXAM MEASUREMENTS: Right Kidney: 10.7 x 5.2 x 5.8 Left Kidney: 10.1 x 5.5 x 5.9 Right Kidney: cystic area in renal sinus as seen on prior ultrasound, measures 2.3 x 1.7 x 2.1 cm. Left Kidney: No hydronephrosis or masses seen Bladder: patient has catheter Bilateral Jets seen: patient has catheter IMPRESSION: 1. Right renal cyst.
[2023-06-08] MEDS ORDERED: SENNOSIDES 8.6 MG TAB PO PRN (14:41)
[2023-06-08] MEDS ORDERED: DEXTROSE 50% SYRINGE 50 ML IVP PRN ×2 (14:47)
--- NOTE | 2023-06-08 14:56 | P.HPIM ---
History of Present Illness H&P Date: 06/08/23 Patient is a 78-year-old male with history of type 2 diabetes, chronic kidney disease stage III, hypertension, history of DVT, history of TIA presenting from rehab facility for feeling unwell. Patient is a poor historian. He claims that he was at rehab, and was told by a physician there to go to the hospital. Currently denies any chest pain, shortness of breath, cough, urinary or bowel complaints. He claims that his last bowel movement was 2 days ago. Has been having some nausea for the last 2 days, but denies any significant abdominal pain. He claims that 2 days ago he did fall on his left side, but denies sustaining any significant injury. He denies any fevers or chills. In the ED, patient was febrile, tachycardic, hypoxic requiring nonrebreather, currently on 6 L. Blood pressure was within normal limits. WBC was 23.6, hemoglobin 10.4, similar to his baseline during last admission. Sodium was 127, potassium 5.6, chloride 93, BUN 30, creatinine 2.89, both from his baseline at 1.4. Troponin negative, proBNP 2600. COVID-19 negative, Legionella urine antig en negative. CT chest abdomen and pelvis shows right lower lobe consolidation, pleural calcifications concerning for prior asbestosis exposure, right proximal femoral fracture. He was given azithromycin and Zosyn in the ED, patient admitted for sepsis and acute hypoxic respiratory failure secondary to pneumonia as well as acute right hip fracture. Orthopedic surgery consulted. Pertinent positives and negatives as discussed in HPI, a complete review of systems was performed and all other systems are negative. Patient seen and examined at bedside. Vital signs reviewed General: nontoxic, in mild distress, appears at stated age Derm: warm, dry Head: atraumatic, normocephalic, symmetric Eyes: EOMI, no lid lag, anicteric sclera, pupils equal round reactive to light ENT: Nose and ears atraumatic Neck: No thyromegaly, supple Mouth: no lip lesion, mucus membranes moist Cardiovascular: S1S2 reg, no murmur, no edema Lungs: Bilateral rhonchi, no wheeze, no accessory muscle use, supplemental oxygen Abdominal: soft, nontender to palpation, no guarding, no appreciable organomegaly Ext: no gross muscle atrophy, reduced muscle strength bilaterally lower extremities Neuro: CN II-XII grossly intact Psych: Alert, oriented, appropriate affect Assessment/Plan: Active: Sepsis secondary to Community-acquired pneumonia Acute hypoxic respiratory failure Acute on chronic kidney disease Acute urinary retention status post Segura catheter Hypovolemic hyponatremia Mild hyperkalemia Acute right hip fracture Diabetes mellitus History of DVT -Continue normal saline at 1 30 mL an hour, continue IV azithromycin and IV Zosyn -Blood cultures, sputum cultures pending -Pro calcitonin ordered -Continue to wean oxygen -Patient does have a Segura catheter placed, repeat BMP tomorrow -Hyperkalemia should improve with improving kidney function -Orthopedic surgery not reviewed, plan for conservative management at the moment, follow-up outpatient -Started on sliding scale insulin -Continue Eliquis Chronic: Chronic normocytic anemia History of TIA Hypertension excellent pacemaker/AICD placed in 2018 The patient is admitted with an anticipated greater than 2 midnight stay as inpatient status for evaluation of sepsis. Surrogate decision-maker: Daughter CODE STATUS: Full code DVT prophylaxis: Eliquis Anticipated discharge date: Pending clinical course Anticipated discharge place: Pending clinical course A total of 55 minutes was spent on the care of this complex patient more than 50% of the time was spent in counseling and care coordination. Past Medical History Past Medical History: CVA/TIA, Diabetes Mellitus, Deep Vein Thrombosis (DVT), Hypertension, Osteoarthritis (OA) Additional Past Medical History / Comment(s): wound center patient, states has DVT x3 in rt leg, past hx of diabetes and HTN, no longer requires rx since weight loss. states TIA in 2010 residual muscle weakness in rt leg, wears brace rt leg, uti . 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, pacemaker/ACID placed 2017 History of Any Multi-Drug Resistant Organisms: MRSA Date of last positivie culture/infection: 02/18/23 MDRO Source:: Sacral Wound Past Surgical History: Back Surgery, Hernia Repair, Orthopedic Surgery, Pacemaker Additional Past Surgical History / Comment(s): cervical fusion, right hip replacement, cataract surgery, penile implant Past Anesthesia/Blood Transfusion Reactions: No Reported Reaction Type of Cardiac Device: Permanent Pacemaker, AICD, Unknown Device Placement Date:: May 2018 Past Psychological History: No Psychological Hx Reported Smoking Status: Never smoker Past Alcohol Use History: None Reported Past Drug Use History: None Reported - Past Family History Mother Family Medical History: Cancer Father Family Medical History: Cancer, Coronary Artery Disease (CAD) Medications and Allergies Home Medications Medication Instructions Recorded Confirmed Type Atorvastatin [Lipitor] 10 mg PO HS 10/29/18 06/08/23 History Magnesium Oxide 400 mg PO DAILY 07/07/21 06/08/23 History Metoprolol Tartrate [Lopressor] 50 mg PO DAILY 07/07/21 06/08/23 History Tamsulosin [Flomax] 0.4 mg PO BID #0 capsule 09/13/21 06/08/23 Rx Apixaban [Eliquis] 2.5 mg PO BID 11/11/22 06/08/23 History Gabapentin [Neurontin] 300 mg PO BID 11/11/22 06/08/23 History L.acidoph,Paracasei, B.lactis 1 cap PO DAILY 11/11/22 06/08/23 History [Probiotic] Sennosides [Senokot] 8.6 mg PO HS PRN 11/11/22 06/08/23 History Calcium Carbonate [Calcium] 600 mg PO BID 01/10/23 06/08/23 History Multivit-Mins/Iron/Folic/Lycop 1 tab PO DAILY 01/10/23 06/08/23 History [Centrum Men's Tablet] oxyCODONE-APAP 7.5-325MG [Percocet 1 tab PO 5XD PRN 01/10/23 06/08/23 History 7.5-325 mg] Menthol-Zinc Oxide Oint 1 applic TOPICAL TID PRN 05/18/23 06/08/23 History [Calmoseptine Ointment] Sulfamethox-Tmp 800-160Mg [Bactrim 1 tab PO Q12HR 7 Days #14 tab 05/31/23 06/08/23 Rx DS 800-160 mg] methocarbamoL 1,000 mg PO TID 06/08/23 06/08/23 History Allergies Allergy/AdvReac Type Severity Reaction Status Date / Time ciprofloxacin [From Cipro] Allergy Unknown Verified 06/08/23 11:19 doxazosin Allergy Unknown Verified 06/08/23 11:19 Physical Exam Vitals: Vital Signs Temp Pulse Pulse Resp BP BP Pulse Ox 06/08/23 12:44 98.1 F 97 18 133/77 92 L 06/08/23 09:55 96 06/08/23 09:44 101.6 F H 102 H 18 136/70 97 06/08/23 09:07 98.8 F 90 20 120/59 97 06/08/23 08:22 92 20 121/56 97 06/08/23 06:58 93 16 118/55 96 06/08/23 06:26 99.2 F 06/08/23 05:44 99.8 F H 06/08/23 05:20 100.3 F H 91 16 139/62 94 L 06/08/23 04:21 100.5 F H 103 H 146/69 95 06/08/23 03:00 94 16 128/41 94 L 06/08/23 02:05 95 06/08/23 02:00 77 L 06/08/23 00:28 98.7 F 91 16 108/58 75 L Intake and Output 06/07/23 06/08/23 06/08/23 22:59 06:59 14:59 Output Total 1300 Balance -1300 Output: Urine 1300 Straight 550 Other: # Voids 1 Weight 74.389 kg 74.389 kg Results CBC & Chem 7: 06/08/23 01:20 06/08/23 01:20 Labs: Abnormal Lab Results - Last 24 Hours (Table) 06/08/23 06/08/23 06/08/23 Range/Units 01:20 01:20 01:20 WBC 23.6 H (3.8-10.6) k/uL RBC 3.96 L (4.30-5.90) m/uL Hgb 10.4 L (13.0-17.5) gm/dL Hct 31.7 L (39.0-53.0) % RDW 16.2 H (11.5-15.5) % Neutrophils # (Manual) 18.88 H (1.3-7.7) k/uL Lymphocytes # (Manual) 0.94 L (1.0-4.8) k/uL Monocytes # (Manual) 3.78 H (0-1.0) k/uL INR 1.2 H (<1.2) APTT 31.3 H (22.0-30.0) sec Sodium 127 L (137-145) mmol/L Potassium 5.6 H (3.5-5.1) mmol/L Chloride 93 L (98-107) mmol/L BUN 30 H (9-20) mg/dL Creatinine 2.89 H (0.66-1.25) mg/dL Glucose 129 H (74-99) mg/dL POC Glucose (mg/dL) (70-110) mg/dL Calcium 8.3 L (8.4-10.2) mg/dL 06/08/23 Range/Units 11:59 WBC (3.8-10.6) k/uL RBC (4.30-5.90) m/uL Hgb (13.0-17.5) gm/dL Hct (39.0-53.0) % RDW (11.5-15.5) % Neutrophils # (Manual) (1.3-7.7) k/uL Lymphocytes # (Manual) (1.0-4.8) k/uL Monocytes # (Manual) (0-1.0) k/uL INR (<1.2) APTT (22.0-30.0) sec Sodium (137-145) mmol/L Potassium (3.5-5.1) mmol/L Chloride (98-107) mmol/L BUN (9-20) mg/dL Creatinine (0.66-1.25) mg/dL Glucose (74-99) mg/dL POC Glucose (mg/dL) 131 H (70-110) mg/dL Calcium (8.4-10.2) mg/dL Thrombosis Risk Factor Assmnt - Choose All That Apply Each Factor Represents 1 point: Medical pt on bed rest Each Risk Factor Represents 2 Points: Patient confined to bed Each Risk Factor Represents 3 Points: Age 75 years or older, History of DVT/PE Each Risk Factor Represents 5 Points: Hip, pelvis, or leg fracture (< 1 month) Thrombosis Risk Factor Assessment Total Risk Factor Score: 14 Thrombosis Risk Factor Assessment Level: High Risk
[2023-06-08 16:28] LABS: Glucose,Whole Blood 187 mg/dL (70-110)
[2023-06-08] MEDS: methocarbamoL 500 MG TAB PO SCH ×2 (17:15→21:19)
[2023-06-08] MEDS: INSULIN ASPART (NovoLOG) 100 UNIT/ML VIAL SQ SCH ×2 (17:17→21:20)
[2023-06-08 20:20] LABS: Glucose,Whole Blood 156 mg/dL (70-110)
[2023-06-08] MEDS: APIXABAN 2.5 MG TABLET PO SCH (21:19)
[2023-06-08] MEDS: CALCIUM CARBONATE 500 MG CHEWABLE PO SCH (21:19)
[2023-06-08] MEDS: ATORVASTATIN 10 MG TAB PO SCH (21:19)
[2023-06-08] MEDS: GABAPENTIN 100 MG CAP PO SCH (21:19)
[2023-06-08] MEDS: TAMSULOSIN 0.4 MG CAP.ER.24H PO SCH (21:26)
[2023-06-09] MEDS: SODIUM CHLORIDE 0.9% 1,000 ML IV SCH ×3 (01:41→18:54)
[2023-06-09] MEDS: AZITHROMYCIN 500 MG in SODIUM CHLORIDE 0.9% 250 ML IVPB SCH (03:39)
[2023-06-09] MEDS: PIPERACILLIN-TAZOBACTAM 3.375 GM in SODIUM CHLORIDE 0.9% 100 ML IVPB SCH ×2 (05:10→17:37)
[2023-06-09 06:14] LABS: Glucose,Whole Blood 97 mg/dL (70-110)
[2023-06-09] MEDS: INSULIN ASPART (NovoLOG) 100 UNIT/ML VIAL SQ SCH ×4 (06:14→21:15)
[2023-06-09] MEDS: methocarbamoL 500 MG TAB PO SCH ×3 (08:45→21:14)
[2023-06-09] MEDS: LACTOBACILLUS ACIDOPHILUS/PECT 1 EACH CAPSULE PO SCH (08:45)
[2023-06-09] MEDS: GABAPENTIN 100 MG CAP PO SCH ×2 (08:45→21:14)
[2023-06-09] MEDS: APIXABAN 2.5 MG TABLET PO SCH ×2 (08:45→21:14)
[2023-06-09] MEDS: METOPROLOL TARTRATE 50 MG TAB PO SCH (08:45)
[2023-06-09] MEDS: MAGNESIUM OXIDE 400 MG TAB PO SCH (08:45)
[2023-06-09] MEDS: ACETAMINOPHEN TAB 325 MG TAB PO PRN (08:45)
[2023-06-09] MEDS: TAMSULOSIN 0.4 MG CAP.ER.24H PO SCH ×2 (08:45→21:14)
[2023-06-09] MEDS: MULTIVITAMINS, THERA 1 EACH TAB PO SCH (08:46)
[2023-06-09] MEDS: CALCIUM CARBONATE 500 MG CHEWABLE PO SCH ×2 (08:46→21:14)
[2023-06-09 10:20] LABS: Anisocytosis Slight; Basophils % (A) 0 %; Eosinophils # (A) 0.1 k/uL (0-0.7); Eosinophils % (A) 1 %; HCT 30.3 % (39.0-53.0); HGB 9.5 gm/dL (13.0-17.5); Lymphocytes # (A) 0.6 k/uL (1.0-4.8); Lymphocytes % (A) 2 %; MCH 25.7 pg (25.0-35.0); MCHC 31.4 g/dL (31.0-37.0); Mean Platelet Volume 8.7; Monocytes # (A) 1.5 k/uL (0-1.0); Monocytes % (A) 7 %; Neutrophils # (A) 20.8 k/uL (1.3-7.7); Neutrophils % (A) 89 %; Platelet Count 284 k/uL (150-450); RDW 16.3 % (11.5-15.5); WBC 23.4 k/uL (3.8-10.6)
[2023-06-09 10:46] LABS: ALT 18 U/L (4-49); AST 26 U/L (17-59); African American GFR (CKD) 34 (>60 ml/min/1.73 sqM); Albumin 3.1 g/dL (3.5-5.0); Alkaline Phosphatase 62 U/L (38-126); Anion Gap 6 mmol/L; Blood Urea Nitrogen 26 mg/dL (9-20); Calcium 7.9 mg/dL (8.4-10.2); Carbon Dioxide 25 mmol/L (22-30); Chloride 102 mmol/L (98-107); Glucose 109 mg/dL (74-99); Non-African American GFR(CKD) 29 (>60 ml/min/1.73 sqM); Sodium 133 mmol/L (137-145); Total Bilirubin 0.6 mg/dL (0.2-1.3); Total Protein 6.7 g/dL (6.3-8.2)
[2023-06-09 11:08] LABS: Glucose,Whole Blood 114 mg/dL (70-110)
[2023-06-09] MEDS ORDERED: VANCOMYCIN IV PER PHARMACY 1 EACH MISC MISCELLANE PRN (13:32)
--- NOTE | 2023-06-09 13:37 | P.PN ---
Subjective Progress Note Date: 06/09/23 Hospital Course: 78-year-old male with history of type 2 diabetes, chronic kidney disease stage III, hypertension, history of DVT, history of TIA presenting for feeling unwell. In the ED, patient was febrile, tachycardic, hypoxic requiring nonrebreather, currently on 6 L. Blood pressure was within normal limits. WBC was 23.6, hemoglobin 10.4, similar to his baseline during last admission. Sodium was 127, potassium 5.6, chloride 93, BUN 30, creatinine 2.89, both from his baseline at 1.4. Troponin negative, proBNP 2600. COVID-19 negative, Legionella urine antigen negative. CT chest abdomen and pelvis shows right lower lobe consolidation, pleural calcifications concerning for prior asbestosis exposure, right proximal femoral fracture. He was given azithromycin and Zosyn in the ED, patient admitted for sepsis and acute hypoxic respiratory failure secondary to pneumonia as well as acute right hip fracture. Orthopedic surgery consulted. Patient currently remains on IV antibiotics, respiratory function slowly improving, continues to have fevers. Renal function also improving. Orthopedic surgery not planning for any surgical intervention. Subjective: And examined at bedside. No acute events overnight. He continues to have intermittent fevers, claims that her respiratory function is slowly improving, he has been coughing more and having some phlegm production. Pertinent positives and negatives as discussed above, a complete review of systems was performed and all other systems are negative. Vitals Signs Reviewed. General: nontoxic, in mild distress, appears at stated age Derm: warm, dry Head: atraumatic, normocephalic, symmetric Eyes: EOMI, no lid lag, anicteric sclera, pupils equal round reactive to light ENT: Nose and ears atraumatic Neck: No thyromegaly, supple Mouth: no lip lesion, mucus membranes moist Cardiovascular: S1S2 reg, no murmur, no edema Lungs: Bilateral rhonchi, no wheeze, no accessory muscle use, supplemental oxygen Abdominal: soft, nontender to palpation, no guarding, no appreciable organomegaly Ext: no gross muscle atrophy, reduced muscle strength bilaterally lower extremities Neuro: CN II-XII grossly intact Psych: Alert, oriented, appropriate affect Data Reviewed Today: Pertinent Labs: WBC 23.4, hemoglobin 9.5, sodium 133, potassium 5, BUN 26, creatinine 2.09, blood sugars ranged a 97-187 Imaging: Renal ultrasound shows right renal cyst Assessment and Plan: Patient is critically ill, prognosis guarded Active: Sepsis secondary to Community-acquired pneumonia Acute hypoxic respiratory failure Acute on chronic kidney disease, improving Acute urinary retention status post Segura catheter Hypovolemic hyponatremia, improving Mild hyperkalemia, resolved Suspected Acute right hip fracture Diabetes mellitus History of DVT -Patient continues to have intermittent fevers, given he is a resident of nursing facility, prior history of MRSA and wound, may benefit from MRSA coverage -Started on IV vancomycin, monitor for renal toxicity -IV Zosyn switchover to IV cefepime -Continue IV azithromycin -Blood cultures negative growth to date -Sputum cultures pending -Continue normal saline at 130 mL an hour -Continue to wean oxygen -Patient does have a Segura catheter placed, repeat BMP tomorrow -Orthopedic surgery - plan for conservative management at the moment, follow-up outpatient - on sliding scale insulin -Continue Eliquis - will speak with his primary regarding further management Chronic: Chronic normocytic anemia History of TIA Hypertension excellent pacemaker/AICD placed in 2018 DVT ppx: Eliquis Code status: Full code Anticipated discharge place: Pending clinical course Anticipated discharge time: Pending clinical course Objective - Vital Signs Vital signs: Vital Signs Temp 98.6 F 06/09/23 12:15 Pulse 81 06/09/23 12:15 Resp 16 06/09/23 12:15 BP 110/62 06/09/23 12:15 Pulse Ox 97 06/09/23 12:15 FiO2 94 06/09/23 04:00 Intake & Output 06/08/23 06/09/23 06/09/23 18:59 06:59 18:59 Intake Total 240 520 240 Output Total 1300 900 600 Balance -1060 -380 -360 Weight 74.389 kg 81.5 kg Intake: Intake, IV Titration 520 Amount Sodium Chloride 0.9% 1, 520 000 ml @ 130 mls/hr IV . [id number] Rx#:[id number] Oral 240 240 Output: Urine 1300 900 600 Straight 550 Other: Voiding Method Indwelling Catheter Indwelling Catheter Indwelling Catheter # Voids 1 - Labs CBC & Chem 7: 06/09/23 10:16 06/09/23 10:16 Labs: Abnormal Lab Results - Last 24 Hours (Table) 06/08/23 06/08/23 06/08/23 Range/Units 01:20 16:27 20:18 WBC (3.8-10.6) k/uL RBC (4.30-5.90) m/uL Hgb (13.0-17.5) gm/dL Hct (39.0-53.0) % RDW (11.5-15.5) % Neutrophils # (1.3-7.7) k/uL Lymphocytes # (1.0-4.8) k/uL Monocytes # (0-1.0) k/uL Sodium (137-145) mmol/L BUN (9-20) mg/dL Creatinine (0.66-1.25) mg/dL Glucose (74-99) mg/dL POC Glucose (mg/dL) 187 H 156 H (70-110) mg/dL Calcium (8.4-10.2) mg/dL Albumin (3.5-5.0) g/dL Procalcitonin 0.32 H (0.02-0.09) ng/mL 06/09/23 06/09/23 06/09/23 Range/Units 10:16 10:16 11:06 WBC 23.4 H (3.8-10.6) k/uL RBC 3.70 L (4.30-5.90) m/uL Hgb 9.5 L (13.0-17.5) gm/dL Hct 30.3 L (39.0-53.0) % RDW 16.3 H (11.5-15.5) % Neutrophils # 20.8 H (1.3-7.7) k/uL Lymphocytes # 0.6 L (1.0-4.8) k/uL Monocytes # 1.5 H (0-1.0) k/uL Sodium 133 L (137-145) mmol/L BUN 26 H (9-20) mg/dL Creatinine 2.09 H (0.66-1.25) mg/dL Glucose 109 H (74-99) mg/dL POC Glucose (mg/dL) 114 H (70-110) mg/dL Calcium 7.9 L (8.4-10.2) mg/dL Albumin 3.1 L (3.5-5.0) g/dL Procalcitonin (0.02-0.09) ng/mL Microbiology - Last 24 Hours (Table) 06/08/23 01:20 Blood Culture - Preliminary Blood
[2023-06-09 14:39] VITALS: BMI 21.9
[2023-06-09] MEDS: VANCOMYCIN 1,500 MG in SODIUM CHLORIDE 0.9% 500 ML 500 ML IVPB SCH (16:15)
[2023-06-09 16:34] LABS: Glucose,Whole Blood 206 mg/dL (70-110)
[2023-06-09 19:32] LABS: Appearance,Urine Clear (Clear); Bilirubin,Urine Negative (Negative); Blood,Urine Small (Negative); Glucose,Urine (UA) 1+ (Negative); Ketones,Urine Negative (Negative); Leukocyte Esterase,Urine Moderate (Negative); Mucus,Urine Rare /hpf; Nitrite,Urine Negative (Negative); Protein,Urine 2+ (Negative); RBC,Urine 3 /hpf (0-5); Specific Gravity,Urine 1.013 (1.001-1.035); Urobilinogen,Urine <2.0 mg/dL (<2.0); WBC,Urine 5 /hpf (0-5)
[2023-06-09 20:06] LABS: Glucose,Whole Blood 169 mg/dL (70-110)
[2023-06-09 21:13] LABS: Color,Urine Light Yellow
[2023-06-09] MEDS: CEFEPIME 2 GM in SODIUM CHLORIDE 0.9% 100 ML IVPB SCH (21:14)
[2023-06-09] MEDS: ATORVASTATIN 10 MG TAB PO SCH (21:14)
[2023-06-10] MEDS: SODIUM CHLORIDE 0.9% 1,000 ML IV SCH ×4 (02:03→23:38)
[2023-06-10 06:18] LABS: Glucose,Whole Blood 135 mg/dL (70-110)
[2023-06-10] MEDS: AZITHROMYCIN 500 MG in SODIUM CHLORIDE 0.9% 250 ML IVPB SCH (06:28)
[2023-06-10] MEDS: INSULIN ASPART (NovoLOG) 100 UNIT/ML VIAL SQ SCH ×4 (06:29→20:27)
[2023-06-10 09:04] LABS: Anisocytosis Slight; Basophils % (A) 0 %; Eosinophils # (A) 0.1 k/uL (0-0.7); Eosinophils % (A) 0 %; HGB 10.6 gm/dL (13.0-17.5); Hypochromasia Slight; Lymphocytes # (A) 1.1 k/uL (1.0-4.8); Lymphocytes % (A) 6 %; MCH 25.5 pg (25.0-35.0); MCV 82.2 fL (80.0-100.0); Mean Platelet Volume 9.1; Monocytes # (A) 1.8 k/uL (0-1.0); Monocytes % (A) 11 %; Neutrophils # (A) 13.5 k/uL (1.3-7.7); Neutrophils % (A) 79 %; Platelet Count 322 k/uL (150-450); RBC 4.14 m/uL (4.30-5.90); RDW 16.4 % (11.5-15.5)
[2023-06-10 09:42] LABS: African American GFR (CKD) 42 (>60 ml/min/1.73 sqM); African American GFR (CKD) 43 (>60 ml/min/1.73 sqM); Anion Gap 13 mmol/L; Blood Urea Nitrogen 24 mg/dL (9-20); Calcium 8.5 mg/dL (8.4-10.2); Carbon Dioxide 19 mmol/L (22-30); Chloride 104 mmol/L (98-107); Glucose 141 mg/dL (74-99); Non-African American GFR(CKD) 37 (>60 ml/min/1.73 sqM); Potassium 4.7 mmol/L (3.5-5.1); Sodium 136 mmol/L (137-145)
[2023-06-10] MEDS: MAGNESIUM OXIDE 400 MG TAB PO SCH (09:45)
[2023-06-10] MEDS: GABAPENTIN 100 MG CAP PO SCH ×2 (09:45→20:34)
[2023-06-10] MEDS: TAMSULOSIN 0.4 MG CAP.ER.24H PO SCH ×2 (09:45→20:34)
[2023-06-10] MEDS: MULTIVITAMINS, THERA 1 EACH TAB PO SCH (09:45)
[2023-06-10] MEDS: CEFEPIME 2 GM in SODIUM CHLORIDE 0.9% 100 ML IVPB SCH ×2 (09:45→20:34)
[2023-06-10] MEDS: METOPROLOL TARTRATE 50 MG TAB PO SCH (09:45)
[2023-06-10] MEDS: APIXABAN 2.5 MG TABLET PO SCH ×2 (09:45→20:34)
[2023-06-10] MEDS: LACTOBACILLUS ACIDOPHILUS/PECT 1 EACH CAPSULE PO SCH (09:46)
[2023-06-10] MEDS: methocarbamoL 500 MG TAB PO SCH ×3 (09:46→20:34)
[2023-06-10] MEDS: CALCIUM CARBONATE 500 MG CHEWABLE PO SCH ×2 (09:46→20:34)
--- NOTE | 2023-06-10 10:50 | P.PN ---
Subjective Progress Note Date: 06/10/23 Hospital Course: 78-year-old male with history of type 2 diabetes, chronic kidney disease stage III, hypertension, history of DVT, history of TIA presenting for feeling unwell. In the ED, patient was febrile, tachycardic, hypoxic requiring nonrebreather, currently on 6 L. Blood pressure was within normal limits. WBC was 23.6, hemoglobin 10.4, similar to his baseline during last admission. Sodium was 127, potassium 5.6, chloride 93, BUN 30, creatinine 2.89, both from his baseline at 1.4. Troponin negative, proBNP 2600. COVID-19 negative, Legionella urine antigen negative. CT chest abdomen and pelvis shows right lower lobe consolidation, pleural calcifications concerning for prior asbestosis exposure, right proximal femoral fracture. He was given azithromycin and Zosyn in the ED, patient admitted for sepsis and acute hypoxic respiratory failure secondary to pneumonia as well as acute right hip fracture. Orthopedic surgery consulted. Patient currently remains on IV antibiotics, continues to have fevers. Renal function also improving. Orthopedic surgery not planning for any surgical intervention. Respiratory function continues to improve. Subjective: Patient seen And examined at bedside. No acute events overnight. He continues to have intermittent fevers, claims that her respiratory function is slowly improving. Pertinent positives and negatives as discussed above, a complete review of systems was performed and all other systems are negative. Vitals Signs Reviewed. General: nontoxic, in mild distress, appears at stated age Derm: warm, dry Head: atraumatic, normocephalic, symmetric Eyes: EOMI, no lid lag, anicteric sclera, pupils equal round reactive to light ENT: Nose and ears atraumatic Neck: No thyromegaly, supple Mouth: no lip lesion, mucus membranes moist Cardiovascular: S1S2 reg, no murmur, no edema Lungs: Bilateral rhonchi, no wheeze, no accessory muscle use, supplemental oxygen Abdominal: soft, nontender to palpation, no guarding, no appreciable organomegaly Ext: no gross muscle atrophy, reduced muscle strength bilaterally lower ex tremities Neuro: CN II-XII grossly intact Psych: Alert, oriented, appropriate affect Data Reviewed Today: Pertinent Labs: WBC 17, hemoglobin 10.6, sodium 136, bicarb 19, creatinine 1.73, blood sugars range between 135-206 Imaging: Repeat chest x-ray ordered Assessment and Plan: Patient is critically ill, prognosis guarded Active: Sepsis secondary to Community-acquired pneumonia Acute hypoxic respiratory failure Acute on chronic kidney disease, improving Acute urinary retention status post Segura catheter Hypovolemic hyponatremia, improving Mild hyperkalemia, resolved Suspected Acute right hip fracture Diabetes mellitus History of DVT -Patient continues to have intermittent fevers -However, white count improving, respiratory function also improving -Continue IV vancomycin, monitor renal toxicity -Continue IV cefepime, completed course of IV azithromycin -Blood cultures negative growth to date -Sputum cultures moderate gram-positive cocci -Continue normal saline at 130 mL an hour -Continue to wean oxygen -Patient does have a Segura catheter placed, repeat BMP tomorrow -Orthopedic surgery - plan for conservative management at the moment, follow-up outpatient - on sliding scale insulin -Continue Eliquis Chronic: Chronic normocytic anemia History of TIA Hypertension excellent pacemaker/AICD placed in 2018 DVT ppx: Eliquis Code status: Full code Anticipated discharge place: Pending clinical course Anticipated discharge time: Pending clinical course Objective - Vital Signs Vital signs: Vital Signs Temp 98.6 F 06/10/23 04:00 Pulse 95 06/10/23 04:00 Resp 16 06/10/23 09:37 BP 149/68 06/10/23 09:37 Pulse Ox 89 L 06/10/23 09:44 FiO2 94 06/09/23 04:00 Intake & Output 06/09/23 06/10/23 06/10/23 18:59 06:59 18:59 Intake Total 480 240 180 Output Total 600 1275 Balance -120 -1035 180 Weight 81.5 kg Intake: Oral 480 240 180 Output: Urine 600 1275 Other: Voiding Method Indwelling Catheter Indwelling Catheter # Bowel Movements 1 1 - Labs CBC & Chem 7: 06/10/23 08:26 06/10/23 08:26 Labs: Abnormal Lab Results - Last 24 Hours (Table) 06/09/23 06/09/23 06/09/23 Range/Units 10:16 11:06 16:33 WBC (3.8-10.6) k/uL RBC (4.30-5.90) m/uL Hgb (13.0-17.5) gm/dL Hct (39.0-53.0) % RDW (11.5-15.5) % Neutrophils # (1.3-7.7) k/uL Monocytes # (0-1.0) k/uL Sodium (137-145) mmol/L Carbon Dioxide (22-30) mmol/L BUN (9-20) mg/dL Creatinine (0.66-1.25) mg/dL Glucose (74-99) mg/dL POC Glucose (mg/dL) 114 H 206 H (70-110) mg/dL Hemoglobin A1c 7.0 H (<=6.0) % Urine Protein (Negative) Urine Glucose (UA) (Negative) Urine Blood (Negative) Ur Leukocyte Esterase (Negative) Urine Mucus (None) /hpf 06/09/23 06/09/23 06/10/23 Range/Units 19:00 20:05 06:17 WBC (3.8-10.6) k/uL RBC (4.30-5.90) m/uL Hgb (13.0-17.5) gm/dL Hct (39.0-53.0) % RDW (11.5-15.5) % Neutrophils # (1.3-7.7) k/uL Monocytes # (0-1.0) k/uL Sodium (137-145) mmol/L Carbon Dioxide (22-30) mmol/L BUN (9-20) mg/dL Creatinine (0.66-1.25) mg/dL Glucose (74-99) mg/dL POC Glucose (mg/dL) 169 H 135 H (70-110) mg/dL Hemoglobin A1c (<=6.0) % Urine Protein 2+ H (Negative) Urine Glucose (UA) 1+ H (Negative) Urine Blood Small H (Negative) Ur Leukocyte Esterase Moderate H (Negative) Urine Mucus Rare H (None) /hpf 06/10/23 06/10/23 06/10/23 Range/Units 08:26 08:26 08:26 WBC 17.0 H (3.8-10.6) k/uL RBC 4.14 L (4.30-5.90) m/uL Hgb 10.6 L (13.0-17.5) gm/dL Hct 34.0 L (39.0-53.0) % RDW 16.4 H (11.5-15.5) % Neutrophils # 13.5 H (1.3-7.7) k/uL Monocytes # 1.8 H (0-1.0) k/uL Sodium 136 L (137-145) mmol/L Carbon Dioxide 19 L (22-30) mmol/L BUN 24 H (9-20) mg/dL Creatinine 1.71 H 1.73 H (0.66-1.25) mg/dL Glucose 141 H (74-99) mg/dL POC Glucose (mg/dL) (70-110) mg/dL Hemoglobin A1c (<=6.0) % Urine Protein (Negative) Urine Glucose (UA) (Negative) Urine Blood (Negative) Ur Leukocyte Esterase (Negative) Urine Mucus (None) /hpf Microbiology - Last 24 Hours (Table) 06/08/23 03:00 Gram Stain - Preliminary Sputum 06/08/23 01:20 Blood Culture - Preliminary Blood
[2023-06-10 11:40] LABS: Glucose,Whole Blood 143 mg/dL (70-110)
--- NOTE | 2023-06-10 11:59 | XR ---
EXAMINATION TYPE: XR chest 1V portable DATE OF EXAM: 06/10/2023 HISTORY: Shortness of breath. COMPARISON: 06/08/2023 TECHNIQUE: Single view of the chest is submitted. FINDINGS: Demonstrated are scattered senescent parenchymal change. Continued elevation right hemidiaphragm persists. Underlying infiltrate or atelectasis is not exclude d as her bronchograms are suggested. The remainder of the lungs are relatively clear. Dual-lead pacer is in place. The heart is stable. Hilar and mediastinal structures are within normal limits. Degenerative changes are seen of the dorsal spine. IMPRESSION: 1. Continued elevation right hemidiaphragm persists. Underlying infiltrate or atelectasis is not exc luded as her bronchograms are suggested. The remainder of the lungs are relatively clear.
[2023-06-10] MEDS: VANCOMYCIN 1,500 MG in SODIUM CHLORIDE 0.9% 500 ML 500 ML IVPB SCH (15:08)
[2023-06-10 16:26] LABS: Glucose,Whole Blood 152 mg/dL (70-110)
[2023-06-10 20:16] LABS: Glucose,Whole Blood 147 mg/dL (70-110)
[2023-06-10] MEDS: ATORVASTATIN 10 MG TAB PO SCH (20:34)
[2023-06-10] MEDS: oxyCODONE-APAP 7.5-325MG 1 EACH TAB PO PRN (20:36)
[2023-06-11] MEDS: oxyCODONE-APAP 7.5-325MG 1 EACH TAB PO PRN ×2 (04:04→20:01)
[2023-06-11 06:22] LABS: Glucose,Whole Blood 122 mg/dL (70-110)
[2023-06-11] MEDS: INSULIN ASPART (NovoLOG) 100 UNIT/ML VIAL SQ SCH ×4 (06:25→20:56)
[2023-06-11 08:16] LABS: Anisocytosis Slight; Basophils % (A) 0 %; Eosinophils # (A) 0.3 k/uL (0-0.7); Eosinophils % (A) 2 %; HCT 35.2 % (39.0-53.0); HGB 11.1 gm/dL (13.0-17.5); Hypochromasia Slight; Lymphocytes # (A) 0.7 k/uL (1.0-4.8); Lymphocytes % (A) 7 %; MCH 25.8 pg (25.0-35.0); MCHC 31.5 g/dL (31.0-37.0); MCV 82.1 fL (80.0-100.0); Mean Platelet Volume 8.5; Monocytes # (A) 0.8 k/uL (0-1.0); Monocytes % (A) 8 %; Neutrophils # (A) 8.4 k/uL (1.3-7.7); Neutrophils % (A) 79 %; Platelet Count 329 k/uL (150-450); RBC 4.29 m/uL (4.30-5.90); RDW 16.5 % (11.5-15.5); WBC 10.7 k/uL (3.8-10.6)
[2023-06-11 08:28] LABS: ALT 44 U/L (4-49); AST 48 U/L (17-59); African American GFR (CKD) 52 (>60 ml/min/1.73 sqM); Albumin 3.6 g/dL (3.5-5.0); Alkaline Phosphatase 68 U/L (38-126); Anion Gap 11 mmol/L; Blood Urea Nitrogen 21 mg/dL (9-20); Calcium 9.1 mg/dL (8.4-10.2); Carbon Dioxide 20 mmol/L (22-30); Chloride 105 mmol/L (98-107); Glucose 139 mg/dL (74-99); Non-African American GFR(CKD) 45 (>60 ml/min/1.73 sqM); Potassium 4.7 mmol/L (3.5-5.1); Sodium 136 mmol/L (137-145); Total Bilirubin 0.9 mg/dL (0.2-1.3); Total Protein 7.9 g/dL (6.3-8.2)
[2023-06-11] MEDS: GABAPENTIN 100 MG CAP PO SCH ×2 (08:48→20:01)
[2023-06-11] MEDS: MULTIVITAMINS, THERA 1 EACH TAB PO SCH (08:48)
[2023-06-11] MEDS: APIXABAN 2.5 MG TABLET PO SCH ×2 (08:48→20:01)
[2023-06-11] MEDS: methocarbamoL 500 MG TAB PO SCH ×3 (08:48→21:14)
[2023-06-11] MEDS: MAGNESIUM OXIDE 400 MG TAB PO SCH (08:48)
[2023-06-11] MEDS: TAMSULOSIN 0.4 MG CAP.ER.24H PO SCH ×2 (08:48→20:01)
[2023-06-11] MEDS: CALCIUM CARBONATE 500 MG CHEWABLE PO SCH ×2 (08:48→20:01)
[2023-06-11] MEDS: LACTOBACILLUS ACIDOPHILUS/PECT 1 EACH CAPSULE PO SCH (08:49)
[2023-06-11] MEDS: CEFEPIME 2 GM in SODIUM CHLORIDE 0.9% 100 ML IVPB SCH (08:49)
[2023-06-11] MEDS: METOPROLOL TARTRATE 50 MG TAB PO SCH (08:49)
--- NOTE | 2023-06-11 11:14 | P.PN ---
Subjective Progress Note Date: 06/11/23 Hospital Course: 78-year-old male with history of type 2 diabetes, chronic kidney disease stage III, hypertension, history of DVT, history of TIA presenting for feeling unwell. In the ED, patient was febrile, tachycardic, hypoxic requiring nonrebreather, currently on 6 L. Blood pressure was within normal limits. WBC was 23.6, hemoglobin 10.4, similar to his baseline during last admission. Sodium was 127, potassium 5.6, chloride 93, BUN 30, creatinine 2.89, both from his baseline at 1.4. Troponin negative, proBNP 2600. COVID-19 negative, Legionella urine antigen negative. CT chest abdomen and pelvis shows right lower lobe consolidation, pleural calcifications concerning for prior asbestosis exposure, right proximal femoral fracture. He was given azithromycin and Zosyn in the ED, patient admitted for sepsis and acute hypoxic respiratory failure secondary to pneumonia as well as acute right hip fracture. Orthopedic surgery consulted. Patient currently remains on IV antibiotics. Renal function also improving. Orthopedic surgery not planning for any surgical intervention. Respiratory function continues to improve. Sputum cultures growing MRSA. ID consulted. Subjective: Patient seen and examined at bedside. No acute events overnight. Respiratory function improving. Pertinent positives and negatives as discussed above, a complete review of systems was performed and all other systems are negative. Vitals Signs Reviewed. General: nontoxic, in mild distress, appears at stated age Derm: warm, dry Head: atraumatic, normocephalic, symmetric Eyes: EOMI, no lid lag, anicteric sclera, pupils equal round reactive to light ENT: Nose and ears atraumatic Neck: No thyromegaly, supple Mouth: no lip lesion, mucus membranes moist Cardiovascular: S1S2 reg, no murmur, no edema Lungs: Bilateral rhonchi, no wheeze, no accessory muscle use, supplemental oxygen Abdominal: soft, nontender to palpation, no guarding, no appreciable organomegaly Ext: no gross muscle atrophy, reduced muscle strength bilaterally lower extremities Neuro: CN II-XII grossly intact Psych: Alert, oriented, appropriate affect Data Reviewed Today: Pertinent Labs: WBC 10.7, hemoglobin 11.1 sodium 136, creatinine 1.46, bicarb 20 Imaging: Chest x-ray from 06/10 independently interpreted, resolving infiltrate in the right Assessment and Plan: Active: Sepsis secondary to MRSA pneumonia Acute hypoxic respiratory failure Acute on chronic kidney disease, resolved Acute urinary retention status post Segura catheter Hypovolemic hyponatremia, improving Mild hyperkalemia, resolved Suspected Acute right hip fracture Diabetes mellitus History of DVT -Sputum cultures positive for MRSA, continue IV vancomycin, monitor for renal toxicity -Patient also on IV cefepime -ID consulted -Blood cultures negative growth to date -Continue normal saline at 130 mL an hour -Continue to wean oxygen -Patient does have a Segura catheter, repeat BMP tomorrow -Orthopedic surgery - plan for conservative management at the moment, follow-up outpatient - on sliding scale insulin -Continue Eliquis Chronic: Chronic normocytic anemia History of TIA Hypertension excellent pacemaker/AICD placed in 2018 DVT ppx: Eliquis Code status: Full code Anticipated discharge place: Subacute rehab Anticipated discharge time: Pending clinical course Objective - Vital Signs Vital signs: Vital Signs Temp 98.1 F 06/11/23 08:53 Pulse 90 06/11/23 08:53 Resp 16 06/11/23 08:53 BP 167/80 06/11/23 08:53 Pulse Ox 95 06/11/23 08:53 FiO2 94 06/09/23 04:00 Intake & Output 06/10/23 06/11/23 06/11/23 18:59 06:59 18:59 Intake Total 540 180 Output Total 1400 1200 900 Balance -860 -1200 -720 Intake: Oral 540 180 Output: Urine 1400 1200 900 Other: Voiding Method Indwelling Catheter Indwelling Catheter Indwelling Catheter - Labs CBC & Chem 7: 06/11/23 08:06 06/11/23 08:06 Labs: Abnormal Lab Results - Last 24 Hours (Table) 06/10/23 06/10/23 06/10/23 Range/Units 11:36 16:24 20:15 WBC (3.8-10.6) k/uL RBC (4.30-5.90) m/uL Hgb (13.0-17.5) gm/dL Hct (39.0-53.0) % RDW (11.5-15.5) % Neutrophils # (1.3-7.7) k/uL Lymphocytes # (1.0-4.8) k/uL Sodium (137-145) mmol/L Carbon Dioxide (22-30) mmol/L BUN (9-20) mg/dL Creatinine (0.66-1.25) mg/dL Glucose (74-99) mg/dL POC Glucose (mg/dL) 143 H 152 H 147 H (70-110) mg/dL 06/11/23 06/11/23 06/11/23 Range/Units 06:20 08:06 08:06 WBC 10.7 H (3.8-10.6) k/uL RBC 4.29 L (4.30-5.90) m/uL Hgb 11.1 L (13.0-17.5) gm/dL Hct 35.2 L (39.0-53.0) % RDW 16.5 H (11.5-15.5) % Neutrophils # 8.4 H (1.3-7.7) k/uL Lymphocytes # 0.7 L (1.0-4.8) k/uL Sodium 136 L (137-145) mmol/L Carbon Dioxide 20 L (22-30) mmol/L BUN 21 H (9-20) mg/dL Creatinine 1.46 H (0.66-1.25) mg/dL Glucose 139 H (74-99) mg/dL POC Glucose (mg/dL) 122 H (70-110) mg/dL Microbiology - Last 24 Hours (Table) 06/08/23 03:00 Gram Stain - Final Sputum Sputum Culture - Final Methicillin resist S. aureus 06/09/23 10:16 Blood Culture - Preliminary Blood 06/08/23 01:20 Blood Culture - Preliminary Blood
[2023-06-11 11:53] LABS: Glucose,Whole Blood 170 mg/dL (70-110)
[2023-06-11] MEDS: SODIUM CHLORIDE 0.9% 1,000 ML IV SCH ×2 (13:03→17:38)
[2023-06-11] MEDS: VANCOMYCIN 1,500 MG in SODIUM CHLORIDE 0.9% 500 ML 500 ML IVPB SCH (16:10)
[2023-06-11 16:12] LABS: Glucose,Whole Blood 145 mg/dL (70-110)
[2023-06-11] MEDS: ATORVASTATIN 10 MG TAB PO SCH (20:01)
[2023-06-11 20:27] LABS: Glucose,Whole Blood 132 mg/dL (70-110)
--- NOTE | 2023-06-11 21:31 | P.CONS ---
History of Present Illness - Reason for Consult Consult date: 06/11/23 MRSA pneumonia Requesting physician: Dre Garcia - Chief Complaint Shortness of breath and cough x few days - History of Present Illness Patient is a 78-year-old male with a past medical his significant for diabetes mellitus hypertension osteoarthritis CVA TIA presenting to the hospital 3 days ago from the [facility] apparently the patient did suffer a fall early in the morning and the patient complaining of right hip pain in this patient who did have a previous right hip replacement patient did have a x-ray of the hip there was no evidence of any fracture or hardware complication patient also have a CT of the chest abdominal pelvis chest portion did show small right effusion large consolidation at the right posterior lung base correlate for pneumonia patient did have a low-grade fever 100.5 on 06/08/2023 and a fever of 101. degrees Fahrenheit on 06/08/2023 last fever 100.7 on 06/09/2023 patient was mildly hypoxic on supplemental oxygen patient did have a white count of 23,000 with a left shift with a white count of 10.7 this morning did have a elevated BUN and creatinine patient is currently being treated with vancomycin and cefepime patient did have a sputum cultures obtained finalized with MRSA blood culture has been negative infectious disease was consulted for further management of antibiotic therapy patient did have a negative UA patient currently denies having any chest pain or shortness of he did have a cough mild to moderate intensity green sputum but no hemoptysis no nausea vomiting no choking on the food no abdominal pain no diarrhea Review of Systems Positive point and negatives has been mentioned in the HPI, complete review of systems was performed and all other systems are negative Past Medical History Past Medical History: CVA/TIA, Diabetes Mellitus, Deep Vein Thrombosis (DVT), Hypertension, Osteoarthritis (OA) Additional Past Medical History / Comment(s): wound center patient, states has DVT x3 in rt leg, past hx of diabetes and HTN, no longer requires rx since weight loss. states TIA in 2010 residual muscle weakness in rt leg, wears brace rt leg, uti . 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, pacemaker/ACID placed 2017 History of Any Multi-Drug Resistant Organisms: MRSA Year Discovered:: 02/18/23 MDRO Source:: Sacral Wound Past Surgical History: Back Surgery, Hernia Repair, Orthopedic Surgery, Pacemaker Additional Past Surgical History / Comment(s): cervical fusion, right hip replacement, cataract surgery, penile implant Past Anesthesia/Blood Transfusion Reactions: No Reported Reaction Type of Cardiac Device: Permanent Pacemaker, AICD, Unknown Device Placement Date:: May 2018 Past Psychological History: No Psychological Hx Reported Smoking Status: Never smoker Past Alcohol Use History: None Reported Past Drug Use History: None Reported - Past Family History Mother Family Medical History: Cancer Father Family Medical History: Cancer, Coronary Artery Disease (CAD) Medications and Allergies Home Medications Medication Instructions Recorded Confirmed Type Atorvastatin [Lipitor] 10 mg PO HS 10/29/18 06/08/23 History Magnesium Oxide 400 mg PO DAILY 07/07/21 06/08/23 History Metoprolol Tartrate [Lopressor] 50 mg PO DAILY 07/07/21 06/08/23 History Tamsulosin [Flomax] 0.4 mg PO BID #0 capsule 09/13/21 06/08/23 Rx Apixaban [Eliquis] 2.5 mg PO BID 11/11/22 06/08/23 History Gabapentin [Neurontin] 300 mg PO BID 11/11/22 06/08/23 History L.acidoph,Paracasei, B.lactis 1 cap PO DAILY 11/11/22 06/08/23 History [Probiotic] Sennosides [Senokot] 8.6 mg PO HS PRN 11/11/22 06/08/23 History Calcium Carbonate [Calcium] 600 mg PO BID 01/10/23 06/08/23 History Multivit-Mins/Iron/Folic/Lycop 1 tab PO DAILY 01/10/23 06/08/23 History [Centrum Men's Tablet] oxyCODONE-APAP 7.5-325MG [Percocet 1 tab PO 5XD PRN 01/10/23 06/08/23 History 7.5-325 mg] Menthol-Zinc Oxide Oint 1 applic TOPICAL TID PRN 05/18/23 06/08/23 History [Calmoseptine Ointment] methocarbamoL 1,000 mg PO TID 06/08/23 06/08/23 History Linezolid [Zyvox] 600 mg PO Q12H #20 tab 06/13/23 Rx Allergies Allergy/AdvReac Type Severity Reaction Status Date / Time ciprofloxacin [From Cipro] Allergy Unknown Verified 06/08/23 11:19 doxazosin Allergy Unknown Verified 06/08/23 11:19 Physical Exam Vitals: Vital Signs Temp Pulse Pulse Resp BP Pulse Ox 06/11/23 08:53 98.1 F 90 16 167/80 95 06/11/23 03:21 97.7 F 80 20 185/84 97 06/11/23 02:00 80 18 06/10/23 22:59 98.1 F 81 176/78 94 L 06/10/23 20:00 79 18 06/10/23 19:02 97.7 F 79 20 154/75 94 L 06/10/23 15:11 70 16 175/77 06/10/23 12:00 78 16 172/72 94 L Intake and Output 06/10/23 06/11/23 06/11/23 22:59 06:59 14:59 Intake Total 180 180 Output Total 800 1200 900 Balance -620 -1200 -720 Intake: Oral 180 180 Output: Urine 800 1200 900 Other: Voiding Method Indwelling Catheter Indwelling Catheter Indwelling Catheter GENERAL DESCRIPTION: Elderly male lying in bed, no distress. No tachypnea or accessory muscle of respiration use. HEENT: Shows Pallor , no scleral icterus. Oral mucous membrane is dry. No pharyngeal erythema or thrush NECK: Trachea central, no thyromegaly. LUNGS: Unlabored breathing. Decreased breath sound at the base. HEART: S1, S2, regular rate and rhythm. No loud murmur ABDOMEN: Soft, no tenderness , guarding or rigidity, no organomegaly EXTREMITIES: No edema of feet. SKIN: No rash, no masses palpable. NEUROLOGICAL: The patient is awake, alert, oriented x3, mood and affect normal. Results CBC & Chem 7: 06/11/23 08:06 06/13/23 06:46 Labs: Abnormal Lab Results - Last 24 Hours (Table) 06/10/23 06/10/23 06/10/23 Range/Units 11:36 16:24 20:15 WBC (3.8-10.6) k/uL RBC (4.30-5.90) m/uL Hgb (13.0-17.5) gm/dL Hct (39.0-53.0) % RDW (11.5-15.5) % Neutrophils # (1.3-7.7) k/uL Lymphocytes # (1.0-4.8) k/uL Sodium (137-145) mmol/L Carbon Dioxide (22-30) mmol/L BUN (9-20) mg/dL Creatinine (0.66-1.25) mg/dL Glucose (74-99) mg/dL POC Glucose (mg/dL) 143 H 152 H 147 H (70-110) mg/dL 06/11/23 06/11/23 06/11/23 Range/Units 06:20 08:06 08:06 WBC 10.7 H (3.8-10.6) k/uL RBC 4.29 L (4.30-5.90) m/uL Hgb 11.1 L (13.0-17.5) gm/dL Hct 35.2 L (39.0-53.0) % RDW 16.5 H (11.5-15.5) % Neutrophils # 8.4 H (1.3-7.7) k/uL Lymphocytes # 0.7 L (1.0-4.8) k/uL Sodium 136 L (137-145) mmol/L Carbon Dioxide 20 L (22-30) mmol/L BUN 21 H (9-20) mg/dL Creatinine 1.46 H (0.66-1.25) mg/dL Glucose 139 H (74-99) mg/dL POC Glucose (mg/dL) 122 H (70-110) mg/dL Microbiology - Last 24 Hours (Table) 06/08/23 03:00 Gram Stain - Final Sputum Sputum Culture - Final Methicillin resist S. aureus 06/09/23 10:16 Blood Culture - Preliminary Blood 06/08/23 01:20 Blood Culture - Preliminary Blood Assessment and Plan (1) MRSA pneumonia Current Visit: Yes Status: Acute Code(s): J15.212 - PNEUMONIA DUE TO METHICILLIN RESISTANT STAPHYLOCOCCUS AUREUS SNOMED Code(s): 068990915838960 Plan: 1patient presented hospital with sepsis in this patient with a fever tachycardia elevated white count source of the right lower lobe pneumonia with a sputum finalized with MRSA likely the infected pathogen. 2patient to continue vancomycin pharmacy to dose however discontinue cefepime. 3if the patient continues to improve hopefully will be able to finish therapy with oral Zyvox, currently patient do not have any drug interaction with oral Zyvox We will follow on clinical condition and cultures to further adjust medication if needed Thank you for this consultation we will follow the patient along with you Dictation was produced using [employer] dictation software. please excuse any grammatical, word or spelling errors. Time with Patient: Greater than 30
[2023-06-12] MEDS: oxyCODONE-APAP 7.5-325MG 1 EACH TAB PO PRN ×3 (04:20→16:39)
[2023-06-12] MEDS: SODIUM CHLORIDE 0.9% 1,000 ML IV SCH ×3 (04:28→17:38)
[2023-06-12 05:55] LABS: Glucose,Whole Blood 115 mg/dL (70-110)
[2023-06-12] MEDS: INSULIN ASPART (NovoLOG) 100 UNIT/ML VIAL SQ SCH ×4 (05:58→20:31)
[2023-06-12 08:46] LABS: African American GFR (CKD) 58 (>60 ml/min/1.73 sqM); Anion Gap 10 mmol/L; Blood Urea Nitrogen 17 mg/dL (9-20); Calcium 8.9 mg/dL (8.4-10.2); Carbon Dioxide 23 mmol/L (22-30); Chloride 101 mmol/L (98-107); Glucose 101 mg/dL (74-99); Non-African American GFR(CKD) 50 (>60 ml/min/1.73 sqM); Potassium 4.7 mmol/L (3.5-5.1); Sodium 134 mmol/L (137-145)
[2023-06-12] MEDS: APIXABAN 2.5 MG TABLET PO SCH ×2 (09:45→19:56)
[2023-06-12] MEDS: METOPROLOL TARTRATE 50 MG TAB PO SCH (09:45)
[2023-06-12] MEDS: MAGNESIUM OXIDE 400 MG TAB PO SCH (09:45)
[2023-06-12] MEDS: CALCIUM CARBONATE 500 MG CHEWABLE PO SCH ×2 (09:45→19:56)
[2023-06-12] MEDS: MULTIVITAMINS, THERA 1 EACH TAB PO SCH (09:45)
[2023-06-12] MEDS: GABAPENTIN 100 MG CAP PO SCH ×2 (09:45→19:56)
[2023-06-12] MEDS: LACTOBACILLUS ACIDOPHILUS/PECT 1 EACH CAPSULE PO SCH (09:45)
[2023-06-12] MEDS: TAMSULOSIN 0.4 MG CAP.ER.24H PO SCH ×2 (09:45→19:56)
[2023-06-12] MEDS: methocarbamoL 500 MG TAB PO SCH ×3 (09:48→19:57)
[2023-06-12 11:37] LABS: Glucose,Whole Blood 146 mg/dL (70-110)
--- NOTE | 2023-06-12 13:00 | P.PN ---
Subjective Progress Note Date: 06/12/23 Hospital Course: 78-year-old male with history of type 2 diabetes, chronic kidney disease stage III, hypertension, history of DVT, history of TIA presenting for feeling unwell. In the ED, patient was febrile, tachycardic, hypoxic requiring nonrebreather, currently on 6 L. Blood pressure was within normal limits. WBC was 23.6, hemoglobin 10.4, similar to his baseline during last admission. Sodium was 127, potassium 5.6, chloride 93, BUN 30, creatinine 2.89, both from his baseline at 1.4. Troponin negative, proBNP 2600. COVID-19 negative, Legionella urine antigen negative. CT chest abdomen and pelvis shows right lower lobe consolidation, pleural calcifications concerning for prior asbestosis exposure, right proximal femoral fracture. He was given azithromycin and Zosyn in the ED, patient admitted for sepsis and acute hypoxic respiratory failure secondary to pneumonia as well as acute right hip fracture. Orthopedic surgery consulted. Patient currently remains on IV antibiotics. Renal function also improving. Orthopedic surgery not planning for any surgical intervention. Respiratory function continues to improve. Sputum cultures growing MRSA. ID consulted. Patient will likely require linezolid at the time of discharge. Will be going to subacute rehab. Subjective: Patient seen and examined at bedside. No acute events overnight. Respiratory function slightly worsened today. Pertinent positives and negatives as discussed above, a complete review of systems was performed and all other systems are negative. Vitals Signs Reviewed. General: nontoxic, no acute distress, appears at stated age Derm: warm, dry, as right upper buttock decubitus ulceration, stage I to 2 Head: atraumatic, normocephalic, symmetric Eyes: EOMI, no lid lag, anicteric sclera, pupils equal round reactive to light ENT: Nose and ears atraumatic Neck: No thyromegaly, supple Mouth: no lip lesion, mucus membranes moist Cardiovascular: S1S2 reg, no murmur, no edema Lungs: Bilateral rhonchi, no wheeze, no accessory muscle use, supplemental oxygen Abdominal: soft, nontender to palpation, no guarding, no appreciable organomegaly Ext: no gross muscle atrophy, reduced muscle strength bilaterally lower extremities Neuro: CN II-XII grossly intact Psych: Alert, oriented, appropriate affect Data Reviewed Today: Pertinent Labs sodium 134, creatinine 1.33, blood sugars range between 101-132 Imaging: No new imaging Assessment and Plan: Active: Sepsis secondary to MRSA pneumonia Acute hypoxic respiratory failure Acute on chronic kidney disease, resolved Acute urinary retention status post Segura catheter Hypovolemic hyponatremia, improving Mild hyperkalemia, resolved Suspected Acute right hip fracture Diabetes mellitus History of DVT -Sputum cultures positive for MRSA, continue IV vancomycin, monitor for renal toxicity -Discussed management with ID, likely discharge home tomorrow if respiratory function stays stable -Blood cultures negative growth to date -Continue normal saline at 130 mL an hour -Continue to wean oxygen -Discontinue Segura catheter, voiding trial -Orthopedic surgery - plan for conservative management at the moment, follow-up outpatient - on sliding scale insulin -Continue Eliquis Chronic: Chronic normocytic anemia History of TIA Hypertension excellent pacemaker/AICD placed in 2018 DVT ppx: Eliquis Code status: Full code Anticipated discharge place: Subacute rehab Anticipated discharge time: Possibly tomorrow Objective - Vital Signs Vital signs: Vital Signs Temp 98.8 F 06/12/23 11:40 Pulse 69 06/12/23 11:40 Resp 16 06/12/23 11:40 BP 177/86 06/12/23 11:40 Pulse Ox 96 06/12/23 11:40 FiO2 94 06/09/23 04:00 Intake & Output 06/11/23 06/12/23 06/12/23 18:59 06:59 18:59 Intake Total 900 Output Total 900 1700 600 Balance 0 -1700 -600 Intake: Oral 900 Output: Urine 900 1700 600 Other: Voiding Method Indwelling Catheter Indwelling Catheter - Labs CBC & Chem 7: 06/11/23 08:06 06/12/23 07:28 Labs: Abnormal Lab Results - Last 24 Hours (Table) 06/11/23 06/11/23 06/12/23 Range/Units 16:11 20:23 05:54 Sodium (137-145) mmol/L Creatinine (0.66-1.25) mg/dL Glucose (74-99) mg/dL POC Glucose (mg/dL) 145 H 132 H 115 H (70-110) mg/dL 06/12/23 06/12/23 Range/Units 07:28 11:35 Sodium 134 L (137-145) mmol/L Creatinine 1.33 H (0.66-1.25) mg/dL Glucose 101 H (74-99) mg/dL POC Glucose (mg/dL) 146 H (70-110) mg/dL Microbiology - Last 24 Hours (Table) 06/09/23 10:16 Blood Culture - Preliminary Blood 06/08/23 01:20 Blood Culture - Preliminary Blood 06/08/23 03:00 Gram Stain - Final Sputum Sputum Culture - Final Methicillin resist S. aureus
--- NOTE | 2023-06-12 14:15 | P.PN ---
Subjective Progress Note Date: 06/12/23 Principal diagnosis: MRSA pneumonia Patient is a 78-year-old male with a past medical his significant for diabetes mellitus hypertension osteoarthritis CVA TIA presenting to the hospital from the [facility] apparently the patient did suffer a fall , workup was negative for any fracture however the patient did have evidence of sepsis CT of the chest did shows evidence of right lower pneumonia sputum subsequently came back positive with MRSA. On today's evaluation that is 06/12/2023, the patient is afebrile, the patient is breathing comfortably however is requiring 3 L nasal cannula today compared to 2 L yesterday , the patient denies chest pain and no worsening cough, the patient denies nausea and vomiting no abdominal pain and no diarrhea, Patient white count of 10.7 as of yesterday creatinine is 1.33 Objective - Vital Signs Vital signs: Vital Signs Temp 98.7 F 06/12/23 09:25 Pulse 90 06/12/23 09:25 Resp 16 06/12/23 09:25 BP 167/87 06/12/23 09:25 Pulse Ox 90 L 06/12/23 09:25 FiO2 94 06/09/23 04:00 Intake & Output 06/11/23 06/12/23 06/12/23 18:59 06:59 18:59 Intake Total 900 Output Total 900 1700 Balance 0 -1700 Intake: Oral 900 Output: Urine 900 1700 Other: Voiding Method Indwelling Catheter Indwelling Catheter - Exam GENERAL DESCRIPTION: An elderly male lying in bed in no distress RESPIRATORY SYSTEM: Unlabored breathing , decreased breath sounds at bases HEART: S1 S2 regular rate and rhythm , ABDOMEN: Soft , no tenderness EXTREMITIES: No edema feet - Labs CBC & Chem 7: 06/11/23 08:06 06/12/23 07:28 Labs: Abnormal Lab Results - Last 24 Hours (Table) 06/11/23 06/11/23 06/11/23 Range/Units 11:52 16:11 20:23 Sodium (137-145) mmol/L Creatinine (0.66-1.25) mg/dL Glucose (74-99) mg/dL POC Glucose (mg/dL) 170 H 145 H 132 H (70-110) mg/dL 06/12/23 06/12/23 06/12/23 Range/Units 05:54 07:28 11:35 Sodium 134 L (137-145) mmol/L Creatinine 1.33 H (0.66-1.25) mg/dL Glucose 101 H (74-99) mg/dL POC Glucose (mg/dL) 115 H 146 H (70-110) mg/dL Microbiology - Last 24 Hours (Table) 06/09/23 10:16 Blood Culture - Preliminary Blood 06/08/23 01:20 Blood Culture - Preliminary Blood 06/08/23 03:00 Gram Stain - Final Sputum Sputum Culture - Final Methicillin resist S. aureus Assessment and Plan (1) MRSA pneumonia Current Visit: Yes Status: Acute Code(s): J15.212 - PNEUMONIA DUE TO METHICILLIN RESISTANT STAPHYLOCOCCUS AUREUS SNOMED Code(s): 471877306272939 Plan: 1patient presented hospital with sepsis in this patient with a fever tachycardia elevated white count source of the right lower lobe pneumonia with a sputum finalized with MRSA likely the infected pathogen. 2patient to continue vancomycin pharmacy to dose for another 24 hour and try to stabilize his pulmonary condition see if he can cut back on his oxygen, plan for discharge antibiotics remains to be oral Zyvox once his respiratory status stabilized u Dictation was produced using [email or web address] dictation software. please excuse any gra mmatical, word or spelling errors. Time with Patient: Less than 30
[2023-06-12] MEDS: VANCOMYCIN 1,500 MG in SODIUM CHLORIDE 0.9% 500 ML 500 ML IVPB SCH (14:56)
[2023-06-12 16:02] VITALS: RESP 16
[2023-06-12 16:20] LABS: Glucose,Whole Blood 138 mg/dL (70-110)
[2023-06-12] MEDS: ATORVASTATIN 10 MG TAB PO SCH (19:56)
[2023-06-12 20:27] LABS: Glucose,Whole Blood 112 mg/dL (70-110)
[2023-06-12 21:42] VITALS: TEMP 97.7
[2023-06-13] MEDS: VANCOMYCIN 1,500 MG in SODIUM CHLORIDE 0.9% 500 ML 500 ML IVPB SCH (03:07)
[2023-06-13] MEDS: SODIUM CHLORIDE 0.9% 1,000 ML IV SCH ×2 (03:09→06:07)
[2023-06-13 06:08] LABS: Glucose,Whole Blood 100 mg/dL (70-110)
[2023-06-13] MEDS: INSULIN ASPART (NovoLOG) 100 UNIT/ML VIAL SQ SCH ×2 (06:08→12:05)
[2023-06-13 07:59] LABS: African American GFR (CKD) 64 (>60 ml/min/1.73 sqM); Anion Gap 8 mmol/L; Blood Urea Nitrogen 18 mg/dL (9-20); Calcium 8.8 mg/dL (8.4-10.2); Carbon Dioxide 23 mmol/L (22-30); Chloride 104 mmol/L (98-107); Glucose 101 mg/dL (74-99); Non-African American GFR(CKD) 55 (>60 ml/min/1.73 sqM); Potassium 4.6 mmol/L (3.5-5.1); Sodium 135 mmol/L (137-145)
[2023-06-13] MEDS: LACTOBACILLUS ACIDOPHILUS/PECT 1 EACH CAPSULE PO SCH (09:23)
[2023-06-13] MEDS: GABAPENTIN 100 MG CAP PO SCH (09:23)
[2023-06-13] MEDS: CALCIUM CARBONATE 500 MG CHEWABLE PO SCH (09:23)
[2023-06-13] MEDS: METOPROLOL TARTRATE 50 MG TAB PO SCH (09:23)
[2023-06-13] MEDS: MAGNESIUM OXIDE 400 MG TAB PO SCH (09:23)
[2023-06-13] MEDS: TAMSULOSIN 0.4 MG CAP.ER.24H PO SCH (09:23)
[2023-06-13] MEDS: methocarbamoL 500 MG TAB PO SCH (09:23)
[2023-06-13] MEDS: APIXABAN 2.5 MG TABLET PO SCH (09:23)
[2023-06-13] MEDS: MULTIVITAMINS, THERA 1 EACH TAB PO SCH (09:23)
[2023-06-13 11:29] LABS: Glucose,Whole Blood 107 mg/dL (70-110)
--- NOTE | 2023-06-13 15:00 | P.DS ---
Providers Date of admission: 06/08/23 08:12 Expected date of discharge: 06/13/23 Attending physician: Andrea Carrington MD Consults: 06/08/23 08:12 Consult Physician Urgent Consulting Provider: Junaid Gonsalez Consult Reason/Comments: right hip pain, fall, possible loosening Do you want consulting provider notified?: Already Contacted 06/11/23 09:53 Consult Physician Urgent Consulting Provider: Pablito Lynne Consult Reason/Comments: MRSA pneumonia? Do you want consulting provider notified?: Yes Primary care physician: Zeeshan William MD Hospital Course: Discharge Diagnosis: Sepsis secondary to MRSA pneumonia Acute hypoxic respiratory failure Acute on chronic kidney disease Acute urinary retention Hypovolemic hyponatremia Mild hyperkalemia, resolved Suspected Acute right hip fracture Diabetes mellitus History of DVT Hospital Course: 78-year-old male with history of type 2 diabetes, chronic kidney disease stage III, hypertension, history of DVT, history of TIA presenting for feeling unwell. In the ED, patient was febrile, tachycardic, hypoxic requiring nonrebreather, currently on 6 L. Blood pressure was within normal limits. WBC was 23.6, hemoglobin 10.4, similar to his baseline during last admission. Sodium was 127, potassium 5.6, chloride 93, BUN 30, creatinine 2.89, both from his baseline at 1.4. Troponin negative, proBNP 2600. COVID-19 negative, Legionella urine antigen negative. CT chest abdomen and pelvis shows right lower lobe consolidation, pleural calcifications concerning for prior asbestosis exposure, right proximal femoral fracture. He was given azithromycin and Zosyn in the ED, patient admitted for sepsis and acute hypoxic respiratory failure secondary to pneumonia as well as acute right hip fracture. Orthopedic surgery consulted. Patient currently remains on IV antibiotics. Renal function also improving. Orthopedic surgery not planning for any surgical intervention. Respiratory function continues to improve. Sputum cultures growing MRSA. ID consulted. Patient being discharged on oral linezolid. Outpatient follow up with orthopedic surgery. Plan communicated with PCP. Patient seen and examined at bedside. Vital signs reviewed and stable. General: nontoxic, no distress, appears at stated age Derm: warm, dry Head: atraumatic, normocephalic, symmetric Eyes: EOMI, no lid lag, anicteric sclera Mouth: no lip lesion, mucus membranes moist Cardiovascular: S1S2 reg, no murmur Lungs: CTA bilateral, no rhonchi, no rales , no accessory muscle use Abdominal: soft, nontender to palpation, no guarding, no appreciable organomegaly Ext: no gross muscle atrophy, no edema, no contractures Neuro: CN II-XI grossly intact, no focal neuro deficits Psych: Alert, oriented, appropriate affect A total of 33 minutes of time were spent preparing this complex discharge summary. Patient was discharged on 06/13/23 at 14:58. Patient Condition at Discharge: Stable Plan - Discharge Summary Discharge Rx Participant: No New Discharge Prescriptions: New Linezolid [Zyvox] 600 mg PO Q12H #20 tab Continue Atorvastatin [Lipitor] 10 mg PO HS Magnesium Oxide 400 mg PO DAILY Metoprolol Tartrate [Lopressor] 50 mg PO DAILY Tamsulosin [Flomax] 0.4 mg PO BID #0 capsule L.acidoph,Paracasei, B.lactis [Probiotic] 1 cap PO DAILY Gabapentin [Neurontin] 300 mg PO BID Apixaban [Eliquis] 2.5 mg PO BID methocarbamoL 1,000 mg PO TID Sennosides [Senokot] 8.6 mg PO HS PRN PRN Reason: No BM for 48 hours oxyCODONE-APAP 7.5-325MG [Percocet 7.5-325 mg] 1 tab PO 5XD PRN PRN Reason: Pain Multivit-Mins/Iron/Folic/Lycop [Centrum Men's Tablet] 1 tab PO DAILY Calcium Carbonate [Calcium] 600 mg PO BID Menthol-Zinc Oxide Oint [Calmoseptine Ointment] 1 applic TOPICAL TID PRN PRN Reason: sacrum dermatitis Discontinued Sulfamethox-Tmp 800-160Mg [Bactrim DS 800-160 mg] 1 tab PO Q12HR 7 Days #14 tab Discharge Medication List Atorvastatin [Lipitor] 10 mg PO HS 10/29/18 [History] Magnesium Oxide 400 mg PO DAILY 07/07/21 [History] Metoprolol Tartrate [Lopressor] 50 mg PO DAILY 07/07/21 [History] Tamsulosin [Flomax] 0.4 mg PO BID #0 capsule 09/13/21 [Rx] Apixaban [Eliquis] 2.5 mg PO BID 11/11/22 [History] Gabapentin [Neurontin] 300 mg PO BID 11/11/22 [History] L.acidoph,Paracasei, B.lactis [Probiotic] 1 cap PO DAILY 11/11/22 [History] Sennosides [Senokot] 8.6 mg PO HS PRN 11/11/22 [History] Calcium Carbonate [Calcium] 600 mg PO BID 01/10/23 [History] Multivit-Mins/Iron/Folic/Lycop [Centrum Men's Tablet] 1 tab PO DAILY 01/10/23 [History] oxyCODONE-APAP 7.5-325MG [Percocet 7.5-325 mg] 1 tab PO 5XD PRN 01/10/23 [History] Menthol-Zinc Oxide Oint [Calmoseptine Ointment] 1 applic TOPICAL TID PRN 05/18/23 [History] methocarbamoL 1,000 mg PO TID 06/08/23 [History] Linezolid [Zyvox] 600 mg PO Q12H #20 tab 06/13/23 [Rx] Follow up Appointment(s)/Referral(s): Micky Bland PAC [PHYSICIAN [employer]] - 2 Weeks (Patient may follow-up with Micky Bland PA-C or Dr. Sanjeev Gonsalez at [facility] in 2 weeks following discharge. ) Zeeshan William MD [Primary Care Provider] - 1-2 days Patient Instructions/Handouts: MRSA (Methicillin-Resistant Staphylococcus Aureus) (DC), Bacterial Pneumonia (DC) Activity/Diet/Wound Care/Special Instructions: Call [facility] for ride back to their facility [phone] 1. Patient may weight-bear 50% on the right lower extremity with the assistance of a walker. 2. Patient may weight-bear 50% of the right lower extremity when transitioning to a wheelchair. 3. Patient may utilize a wheelchair to aid in ambulation as needed Discharge Disposition: OTHER INSTITUTION NOT DEFINED
[2023-06-13 15:29] VITALS: BP 176/70; PULSE 75
--- NOTE | 2023-06-13 15:38 | P.PN ---
Subjective Progress Note Date: 06/13/23 Principal diagnosis: MRSA pneumonia Patient is a 78-year-old male with a past medical his significant for diabetes mellitus hypertension osteoarthritis CVA TIA presenting to the hospital from the [facility] apparently the patient did suffer a fall , workup was negative for any fracture however the patient did have evidence of sepsis CT of the chest did shows evidence of right lower pneumonia sputum subsequently came back positive with MRSA. On today's evaluation that is 06/13/2023, the patient remains to be afebrile, the patient is breathing comfortably on room air, the patient denies chest pain and cough has decreased in intensity, the patient denies nausea and vomiting no abdominal pain and no diarrhea, Patient white count of 10.7 as of 06/11/2023, creatinine is down to 1.24 Objective - Vital Signs Vital signs: Vital Signs Temp 97.7 F 06/12/23 20:00 Pulse 84 06/13/23 08:00 Resp 16 06/13/23 08:00 BP 169/85 06/13/23 08:00 Pulse Ox 92 L 06/13/23 08:09 FiO2 21 06/13/23 08:09 Intake & Output 06/12/23 06/13/23 06/13/23 18:59 06:59 18:59 Intake Total 1040 Output Total 700 Balance -700 1040 Intake: Intake, IV Titration 500 Amount Vancomycin 1,500 mg In 500 Sodium Chloride 0.9% 500 ml 500 ml @ 167 mls/hr IVPB Q16H [facility] Rx#: [id number] Oral 540 Output: Urine 700 Other: Voiding Method Urinal Urinal # Voids 2 - Exam GENERAL DESCRIPTION: An elderly male lying in bed in no distress RESPIRATORY SYSTEM: Unlabored breathing , decreased breath sounds at bases HEART: S1 S2 regular rate and rhythm , ABDOMEN: Soft , no tenderness EXTREMITIES: No edema feet - Labs CBC & Chem 7: 06/11/23 08:06 06/13/23 06:46 Labs: Abnormal Lab Results - Last 24 Hours (Table) 06/12/23 06/12/23 06/12/23 Range/Units 11:35 16:19 20:14 Sodium (137-145) mmol/L Glucose (74-99) mg/dL POC Glucose (mg/dL) 146 H 138 H 112 H (70-110) mg/dL 06/13/23 Range/Units 06:46 Sodium 135 L (137-145) mmol/L Glucose 101 H (74-99) mg/dL POC Glucose (mg/dL) (70-110) mg/dL Microbiology - Last 24 Hours (Table) 06/09/23 10:16 Blood Culture - Preliminary Blood 06/08/23 13:04 Legionella Culture - Preliminary Sputum Assessment and Plan (1) MRSA pneumonia Current Visit: Yes Status: Acute Code(s): J15.212 - PNEUMONIA DUE TO METHICILLIN RESISTANT STAPHYLOCOCCUS AUREUS SNOMED Code(s): 497394705337196 Plan: 1patient presented hospital with sepsis in this patient with a fever tachycardia elevated white count source of the right lower lobe pneumonia with a sputum finalized with MRSA likely the infective pathogen. 2patient seemed to have shown clinical improvement and the patient is currently off supplemental oxygen he'll be able to finish therapy with oral Zyvox 600 mg twice a day for 10 days and close outpatient follow-up Dictation was produced using [employer] dictation software. please excuse any grammatical, word or spelling errors. Time with Patient: Less than 30
[2023-06-13] MEDS ORDERED: VANCOMYCIN TROUGH DUE 1 EACH MISC MISCELLANE ONE (18:00)
== END 2023-06-13 16:12 | disposition home or self-care (01) | DRG 871 ==
LOC: EC 00:26 → 3SCARD 08:12
PROVIDERS: ADMIT Internal Medicine; ATTEND Internal Medicine
DX: A41.02 Sepsis due to Methicillin resistant Staphylococcus aureus (principal); J15.212 Pneumonia due to Methicillin resistant Staphylococcus aureus; L89.153 Pressure ulcer of sacral region, stage 3; S72.91XA Unspecified fracture of right femur, initial encounter for closed fracture; J96.01 Acute respiratory failure with hypoxia; N17.9 Acute kidney failure, unspecified; E87.1 Hypo-osmolality and hyponatremia; M97.01XA Periprosthetic fracture around internal prosthetic right hip joint, initial encounter; E11.22 Type 2 diabetes mellitus with diabetic chronic kidney disease; I12.9 Hypertensive chronic kidney disease with stage 1 through stage 4 chronic kidney disease, or unspecified chronic kidney disease; N18.30 Chronic kidney disease, stage 3 unspecified; D63.1 Anemia in chronic kidney disease; E86.1 Hypovolemia; E87.5 Hyperkalemia; I45.10 Unspecified right bundle-branch block; L89.312 Pressure ulcer of right buttock, stage 2; M19.90 Unspecified osteoarthritis, unspecified site; I69.341 Monoplegia of lower limb following cerebral infarction affecting right dominant side; N28.1 Cyst of kidney, acquired; Y95 Nosocomial condition; Z20.822 Contact with and (suspected) exposure to COVID-19; Z79.01 Long term (current) use of anticoagulants; Z79.899 Other long term (current) drug therapy; Z82.49 Family history of ischemic heart disease and other diseases of the circulatory system; Z86.718 Personal history of other venous thrombosis and embolism; Z77.090 Contact with and (suspected) exposure to asbestos; Z87.01 Personal history of pneumonia (recurrent); Z91.81 History of falling; Z96.641 Presence of right artificial hip joint; Z95.810 Presence of automatic (implantable) cardiac defibrillator; Z87.440 Personal history of urinary (tract) infections; Z98.1 Arthrodesis status; Z88.0 Allergy status to penicillin
CPT/HCPCS: 36415; 51701; 51798; 71045; 71250; 73502; 74176; 76770; 80048; 80053; 81001; 82565; 83036; 83605; 83880; 84145; 84484; 85025; 85610; 85730; 87040; 87070; 87077; 87186; 87205; 87449; 87635; 93005; 94760; 96365; 96366; 96367; 96375; 96376; 99285

== ENCOUNTER 2023-07-28 19:10 | Inpatient (IN) | payer OTHER ==
[2023-07-28] MEDS ORDERED: DEXAMETHASONE SOD PHOSPHATE 10 MG/ML 1 ML VIAL IV STA (19:20)
--- NOTE | 2023-07-28 20:02 | ED ---
General Adult HPI - General Source: EMS Mode of arrival: EMS Limitations: altered mental status <Mario Nicole - Last Filed: 07/28/23 20:53> <West Ha - Last Filed: 08/04/23 21:33> - General Chief complaint: Altered Mental Status Stated complaint: Altered mental Time Seen by Provider: 07/28/23 19:12 - History of Present Illness Initial comments: Dictation was produced using [employer] dictation software. please excuse any grammatical, word or spelling errors. Chief Complaint: 78-year-old male presents emergency department for COVID-19 History of Present Illness: Is an 78-year-old male he is a [employer] participant. I did receive a call from the nurse practitioner that works with the company states that patient was hypoxic tested positive for covered. They did evaluate the patient and deemed that he was gravely disabled especially with recent positive test for COVID-19. They report that he was checked on by medical staff and was found to be hypoxic into the 80s. Patient has no complaints. States that he has no shortness of breath. He wants to be discharge. The ROS documented in this emergency department record has been reviewed and confirmed by me. Those systems with pertinent positive or negative responses have been documented in the HPI. All other systems are other negative and/or noncontributory. (Mario Nicole) - Related Data Home Medications Medication Instructions Recorded Confirmed Atorvastatin [Lipitor] 10 mg PO HS 10/29/18 07/28/23 Magnesium Oxide 400 mg PO DAILY 07/07/21 07/28/23 Metoprolol Tartrate [Lopressor] 50 mg PO DAILY 07/07/21 07/28/23 Apixaban [Eliquis] 2.5 mg PO BID 11/11/22 07/28/23 L.acidoph,Paracasei, B.lactis 1 cap PO DAILY 11/11/22 07/28/23 [Probiotic] Sennosides [Senokot] 8.6 mg PO HS PRN 11/11/22 07/28/23 Calcium Carbonate [Calcium] 600 mg PO BID 01/10/23 07/28/23 Multivit-Mins/Iron/Folic/Lycop 1 tab PO DAILY 01/10/23 07/28/23 [Centrum Men's Tablet] Menthol-Zinc Oxide Oint 1 applic TOPICAL TID PRN 05/18/23 07/28/23 [Calmoseptine Ointment] Docusate [Colace] 100 mg PO DAILY PRN 06/19/23 07/28/23 Ketoconazole 2% Shampoo [Nizoral] 1 applic TOPICAL DIRECTED 06/19/23 07/28/23 Medihoney 100% Topical Paste 1 applic TOPICAL DAILY 06/19/23 07/28/23 Phenyleph/Mineral Oil/Petrolat 1 applic RECTAL BID 06/19/23 07/28/23 [Preparation H Ointment] methocarbamoL 1,000 mg PO TID 07/28/23 07/28/23 oxyCODONE-APAP 7.5-325MG [Percocet 1 tab PO TID PRN 07/28/23 07/28/23 7.5-325 mg] Previous Rx's Medication Instructions Recorded Tamsulosin [Flomax] 0.4 mg PO BID #0 capsule 09/13/21 Ferrous Sulfate [Iron (65 MG 325 mg PO DAILY tab 06/23/23 Elemental)] Gabapentin [Neurontin] 300 mg PO BID #6 cap 06/23/23 amLODIPine [Norvasc] 5 mg PO DAILY tab 06/23/23 Allergies Allergy/AdvReac Type Severity Reaction Status Date / Time ciprofloxacin [From Cipro] Allergy Unknown Verified 07/28/23 19:32 doxazosin Allergy Unknown Verified 07/28/23 19:32 Review of Systems ROS Other: All systems not noted in ROS Statement are negative. <Mario Nicole - Last Filed: 07/28/23 20:53> ROS Other: All systems not noted in ROS Statement are negative. <West Ha - Last Filed: 08/04/23 21:33> ROS Statement: Those systems with pertinent positive or pertinent negative responses have been documented in the HPI. Past Medical History Past Medical History: CVA/TIA, Diabetes Mellitus, Deep Vein Thrombosis (DVT), Hypertension, Osteoarthritis (OA) Additional Past Medical History / Comment(s): [facility] patient, states has DVT x3 in rt leg, past hx of diabetes and HTN, no longer requires rx since weight loss. states TIA in 2010 residual muscle weakness in rt leg, wears brace rt leg, uti . 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, pacemaker/ACID placed 2017 History of Any Multi-Drug Resistant Organisms: MRSA Date of last positivie culture/infection: 06/08/23 MDRO Source:: Sputum Past Surgical History: Back Surgery, Hernia Repair, Orthopedic Surgery, Pacem nitin Additional Past Surgical History / Comment(s): cervical fusion, right hip replacement, cataract surgery, penile implant Past Anesthesia/Blood Transfusion Reactions: No Reported Reaction Type of Cardiac Device: Permanent Pacemaker, AICD, Unknown Device Placement Date:: May 2018 Past Psychological History: No Psychological Hx Reported Smoking Status: Never smoker Past Alcohol Use History: None Reported Past Drug Use History: None Reported - Past Family History Mother Family Medical History: Cancer Father Family Medical History: Cancer, Coronary Artery Disease (CAD) <Mario Nicole - Last Filed: 07/28/23 20:53> General Exam Limitations: altered mental status <Mario Nicole - Last Filed: 07/28/23 20:53> - General Exam Comments Initial Comments: PHYSICAL EXAM: General Impression: Alert and oriented x3, not in acute distress HEENT: Normocephalic atraumatic, extra-ocular movements intact, pupils equal and reactive to light bilaterally, mucous membranes moist. Cardiovascular: Heart regular rate and rhythm Chest: Able to complete full sentences, no retractions, no tachypnea Abdomen: abdomen soft, non-tender, non-distended, no organomegaly Musculoskeletal: Pulses present and equal in all extremities, no peripheral edema Motor: no focal deficits noted Neurological: CN II-XII grossly intact, no focal motor or sensory deficits noted Skin: Intact with no visualized rashes Psych: Normal affect and mood (Mario Nicole) Course Vital Signs 07/28/23 07/28/23 07/28/23 19:24 21:32 22:30 Temperature 98.9 F 98.5 F Pulse Rate 103 H 96 89 Respiratory 16 18 18 Rate Blood Pressure 147/78 148/79 166/75 O2 Sat by Pulse 95 93 L 98 Oximetry 07/28/23 07/29/23 07/29/23 23:30 00:00 07:00 Temperature Pulse Rate 87 81 70 Respiratory 18 18 18 Rate Blood Pressure 170/76 179/85 166/79 O2 Sat by Pulse 98 97 98 Oximetry 07/29/23 07/29/23 07/29/23 11:18 11:43 15:14 Temperature Pulse Rate 67 64 Respiratory 14 18 Rate Blood Pressure 171/76 160/78 O2 Sat by Pulse 95 96 96 Oximetry 07/29/23 07/29/23 07/29/23 18:18 19:00 21:48 Temperature Pulse Rate 67 70 71 Respiratory 16 16 16 Rate Blood Pressure 155/68 146/68 160/72 O2 Sat by Pulse 95 97 96 Oximetry EKG Findings - EKG Comments: EKG Findings:: My EKG interpretation: Ventricular rate 1:30, sinus tachycardia,. 155, QRS 141, QTc 412, right bundle branch block. No VT prolongation, no QTC prolongation, no ST or T-wave changes noted. Overall, this EKG is unremarkable <Mario Nicole - Last Filed: 07/28/23 20:53> Medical Decision Making - Lab Data Result diagrams: 07/28/23 19:55 <Mario Nicole - Last Filed: 07/28/23 20:53> - Lab Data Result diagrams: 07/28/23 19:55 07/28/23 22:44 <West Ha - Last Filed: 08/04/23 21:33> - Medical Decision Making Was pt. sent in by a medical professional or institution (MIRIAM Crow, SPOT CHECKER, urgent care, hospital, or usp...) When possible be specific @ -No Did you speak to anyone other than the patient for history (EMS, parent, family, police, friend...)? What history was obtained from this source @ -No Did you review nursing and triage notes (agree or disagree)? Why? @ -I reviewed and agree with nursing and triage notes Were old charts reviewed (outside hosp., previous admission, EMS record, old EKG, old radiological studies, urgent care reports/EKG's, usp records)? Report findings @ -No old charts were reviewed Differential Diagnosis (chest pain, altered mental status, abdominal pain women, abdominal pain men, vaginal bleeding, musculoskeletal, weakness, fever, dyspnea, syncope, headache, dizziness, GI bleed, back pain, seizure, CVA, palpatations, mental health)? @ -Differential Altered Mental Status: Hypoglycemia, DKA, hypercapnia, ETOH, overdose, CO poisoning, trauma, myxedema coma, HTN encephalopathy, infection, encephalitis, psychosis, intercranial hemorrhage, hepatic encephalopathy, meningitis, CVA, this is not meant to be an all-inclusive list EKG interpreted by me (3pts min.). @ -As above X-rays interpreted by me (1pt min.). @ -Chest x-ray shows basilar airspace opacities CT interpreted by me (1pt min.). @ -None done U/S interpreted by me (1pt. min.). @ -None done What testing was considered but not performed or refused? (CT, X-rays, U/S, labs)? Why? @ -None What meds were considered but not given or refused? Why? @ -None Did you discuss the management of the patient with other professionals (professionals i.e. , PA, SPOT CHECKER, lab, RT, psych nurse, social services director, print traffic manager, teacher, business services officer, rn case manager hospice)? Give summary @ -Case discussed with hospitalist for admission Was smoking cessation discussed for >3mins.? @ -No Was critical care preformed (if so, how long)? @ -No Were there social determinants of health that impacted care today? How? (Homelessness, low income, unemployed, alcoholism, drug addiction, transportation, low edu. Level, literacy, decrease access to med. care, prison, rehab)? @ -No Was there de-escalation of care discussed even if they declined (Discuss DNR or withdrawal of care, Hospice)? DNR status @ -No What co-morbidities impacted this encounter? (DM, HTN, Smoking, COPD, CAD, Cance r, CVA, ARF, Chemo, Hep., AIDS, mental health diagnosis, sleep apnea, morbid obesity)? @ -None Was patient admitted / discharged? Hospital course, mention meds given and route, prescriptions, significant lab abnormalities, going to OR and other pertinent info. @ -78 y Old male presents to emergency room for weakness, altered mental status and positive COVID-19 test. Vital signs upon arrival shows heart rate of 103, worse vital signs within acceptable limits. Patient is signed out to Dr. Ha at 9:00 PM Undiagnosed new problem with uncertain prognosis? @ -No Drug Therapy requiring intensive monitoring for toxicity (Heparin, Nitro, Insulin, Cardizem)? @ -No Were any procedures done? @ -No Diagnosis/symptom? Acute, or Chronic, or Acute on Chronic? Uncomplicated (without systemic symptoms) or Complicated (systemic symptoms)? @ -COVID-19 complicated by altered mental status Side effects of treatment? @ -No Exacerbation, Progression, or Severe Exacerbation? @ -No Poses a threat to life or bodily function? How? (Chest pain, USA, HI, pneumonia, PE, COPD, DKA, ARF, appy, cholecystitis, CVA, Diverticulitis, Homicidal, Suicidal, threat to staff... and all critical care pts) @ -yes (Mario Nicole) Was patient admitted / discharged? Hospital course, mention meds given and route, prescriptions, significant lab abnormalities, going to OR and other pertinent info. @ -[This patient is signed out pending the results of the CT to rule out pulmonary embolism. Following the CT, patient is reevaluated. The patient does look moderately dry and the creatinine is elevated above baseline. The patient in addition not ambulating well, suspect this is due to viral illness and dehyd ration. In light of this will admit patient to have further hydration Undiagnosed new problem with uncertain prognosis? @ -[No] Drug Therapy requiring intensive monitoring for toxicity (Heparin, Nitro, Insulin, Cardizem)? @ -[No] Were any procedures done? @ -[No] Diagnosis/symptom? @ -Acute COVID-19 infection Acute kidney injury due to dehydration Generalized weakness Acute, or Chronic, or Acute on Chronic? @ -[Acute Uncomplicated (without systemic symptoms) or Complicated (systemic symptoms)? @ -[, Located by dehydration Side effects of treatment? @ -[No] Exacerbation, Progression, or Severe Exacerbation? @ -[No] Poses a threat to life or bodily function? How? (Chest pain, USA, HI, pneumonia, PE, COPD, DKA, ARF, appy, cholecystitis, CVA, Diverticulitis, Homicidal, S uicidal, threat to staff... and all critical care pts) @ -[No] (West Ha) - Lab Data Lab Results 07/28/23 07/28/23 07/28/23 Range/Units 19:55 19:55 19:56 WBC 11.8 H (3.8-10.6) k/uL RBC 4.38 (4.30-5.90) m/uL Hgb 11.8 L (13.0-17.5) gm/dL Hct 35.8 L (39.0-53.0) % MCV 81.8 (80.0-100.0) fL MCH 27.0 (25.0-35.0) pg MCHC 33.0 (31.0-37.0) g/dL RDW 19.0 H (11.5-15.5) % Plt Count 200 (150-450) k/uL MPV 9.0 Neutrophils % (Manual) 70 % Band Neuts % (Manual) 6 % Lymphocytes % (Manual) 13 % Monocytes % (Manual) 13 % Neutrophils # (Manual) 8.90 H (1.3-7.7) k/uL Lymphocytes # (Manual) 1.53 (1.0-4.8) k/uL Monocytes # (Manual) 1.53 H (0-1.0) k/uL Nucleated RBCs 0 (0-0) /100 WBC Manual Slide Review Performed Large Platelets Present Polychromasia Present Hypochromasia Slight Anisocytosis Slight Microcytosis Slight D-Dimer 5.87 H (<0.60) mg/L FEU Sodium (137-145) mmol/L Potassium (3.5-5.1) mmol/L Chloride (98-107) mmol/L Carbon Dioxide (22-30) mmol/L Anion Gap mmol/L BUN (9-20) mg/dL Creatinine (0.66-1.25) mg/dL Est GFR (CKD-EPI)AfAm (>60 ml/min/1.73 sqM) Est GFR (CKD-EPI)NonAf (>60 ml/min/1.73 sqM) Glucose (74-99) mg/dL Plasma Lactic Acid Jason (0.7-2.0) mmol/L Calcium (8.4-10.2) mg/dL Magnesium (1.6-2.3) mg/dL Total Bilirubin (0.2-1.3) mg/dL AST (17-59) U/L ALT (4-49) U/L Alkaline Phosphatase (38-126) U/L Total Protein (6.3-8.2) g/dL Albumin (3.5-5.0) g/dL Influenza Type A (PCR) Not Detected (Not Detectd) Influenza Type B (PCR) Not Detected (Not Detectd) RSV (PCR) Not Detected (Not Detectd) SARS-CoV-2 (PCR) Detected A (Not Detectd) 07/28/23 07/28/23 07/28/23 Range/Units 20:39 20:49 22:44 WBC (3.8-10.6) k/uL RBC (4.30-5.90) m/uL Hgb (13.0-17.5) gm/dL Hct (39.0-53.0) % MCV (80.0-100.0) fL MCH (25.0-35.0) pg MCHC (31.0-37.0) g/dL RDW (11.5-15.5) % Plt Count (150-450) k/uL MPV Neutrophils % (Manual) % Band Neuts % (Manual) % Lymphocytes % (Manual) % Monocytes % (Manual) % Neutrophils # (Manual) (1.3-7.7) k/uL Lymphocytes # (Manual) (1.0-4.8) k/uL Monocytes # (Manual) (0-1.0) k/uL Nucleated RBCs (0-0) /100 WBC Manual Slide Review Large Platelets Polychromasia Hypochromasia Anisocytosis Microcytosis D-Dimer (<0.60) mg/L FEU Sodium 134 L (137-145) mmol/L Potassium 4.5 (3.5-5.1) mmol/L Chloride 99 (98-107) mmol/L Carbon Dioxide 24 (22-30) mmol/L Anion Gap 11 mmol/L BUN 35 H (9-20) mg/dL Creatinine 1.74 H (0.66-1.25) mg/dL Est GFR (CKD-EPI)AfAm 42 (>60 ml/min/1.73 sqM) Est GFR (CKD-EPI)NonAf 36 (>60 ml/min/1.73 sqM) Glucose 198 H (74-99) mg/dL Plasma Lactic Acid Jason 1.1 (0.7-2.0) mmol/L Calcium 8.7 (8.4-10.2) mg/dL Magnesium 1.7 (1.6-2.3) mg/dL Total Bilirubin 0.5 (0.2-1.3) mg/dL AST 35 (17-59) U/L ALT 21 (4-49) U/L Alkaline Phosphatase 63 (38-126) U/L Total Protein 7.9 (6.3-8.2) g/dL Albumin 3.6 (3.5-5.0) g/dL Influenza Type A (PCR) (Not Detectd) Influenza Type B (PCR) (Not Detectd) RSV (PCR) (Not Detectd) SARS-CoV-2 (PCR) (Not Detectd) Disposition <Mario Nicole - Last Filed: 07/28/23 20:53> Is patient prescribed a controlled substance at d/c from ED?: No <West Ha - Last Filed: 08/04/23 21:33> Clinical Impression: COVID-19, Acute kidney injury, Dehydration Disposition: HOME SELF-CARE Condition: Stable
--- NOTE | 2023-07-28 20:23 | XR ---
EXAMINATION TYPE: XR chest 2V DATE OF EXAM: 07/28/2023 8:05 PM CLINICAL INDICATION:Male, 78 years old with history of hypoxia; [facility] COMPARISON: Chest radiographs from 06/19/2023 TECHNIQUE: XR chest 2V Frontal and lateral views of the chest. FINDINGS: Lungs/Pleura: There is no evidence of pleural effusion, focal consolidation, or pneumothorax. Pulmonary vascularity: Unremarkable. Heart/mediastinum: Cardiomediastinal silhouette is unremarkable. Two lead cardiac conduction device o verlying the left hemithorax with lead tips projecting over the right ventricle and right atrium. Musculoskeletal: No acute osseous pathology. There is fixation hardware in the lower cervical spine. IMPRESSION: Low lung volumes with cardiomegaly. There may be right basilar airspace opacities which persist on to day's exam which were also present on 06/19/2023. Correlate for pneumonia. Correlate with serum BNP.
[2023-07-28 20:26] LABS: Anisocytosis Slight; HCT 35.8 % (39.0-53.0); HGB 11.8 gm/dL (13.0-17.5); Hypochromasia Slight; MCV 81.8 fL (80.0-100.0); Microcytosis Slight; Platelet Count 200 k/uL (150-450); RBC 4.38 m/uL (4.30-5.90); WBC 11.8 k/uL (3.8-10.6)
[2023-07-28] MEDS ORDERED: AZITHROMYCIN 500 MG in SODIUM CHLORIDE 0.9% 250 ML IVPB STA (20:57)
[2023-07-28 21:01] LABS: Band Neutrophils % 6 %; Large Platelets Present; Lymphocytes # (M) 1.53 k/uL (1.0-4.8); Monocytes # (M) 1.53 k/uL (0-1.0); Neutrophils % (M) 70 %; Nucleated Red Blood Cells 0 /100 WBC (0-0); Polychromasia Present; Total Cells Counted 200
--- NOTE | 2023-07-28 22:14 | CT ---
EXAMINATION TYPE: CT brain wo con CT DLP: 1197.4 mGycm, Automated exposure control for dose reduction was used. DATE OF EXAM: 07/28/2023 9:41 PM COMPARISON: 11/21/2022. CLINICAL INDICATION:Male, 78 years old with history of ams, AMS TECHNIQUE: Brain: Axial CT images of the brain were obtained with coronal and sagittal reformats created and rev iewed. Contrast used: None. Oral contrast used: None. FINDINGS: Brain: Extra-axial spaces: No abnormal extra-axial fluid collections. Ventricular system: Dilatation in proportion to cerebral atrophy. Cerebral parenchyma: Cerebral atrophy. No acute intraparenchymal hemorrhage or mass effect. The tamayo -white junction is well differentiated. Scattered hypoattenuating areas are seen within the white mat ter. Cerebellum: Unremarkable. Mass effect: No evidence of midline shift. Intracranial vasculature: Atherosclerotic calcifications of the intracranial vessels. Soft tissues: Normal. Calvarium/osseous structures: No depressed skull fracture. Paranasal sinuses and mastoid air cells: Mild scattered paranasal sinus disease. Visualized orbits: Bilateral aphakia IMPRESSION: 1. No acute intracranial process. 2. Nonspecific white matter changes, likely secondary to chronic small vessel ischemic disease.
[2023-07-28 23:22] LABS: ALT 21 U/L (4-49); AST 35 U/L (17-59); African American GFR (CKD) 42 (>60 ml/min/1.73 sqM); Albumin 3.6 g/dL (3.5-5.0); Alkaline Phosphatase 63 U/L (38-126); Anion Gap 11 mmol/L; Blood Urea Nitrogen 35 mg/dL (9-20); Calcium 8.7 mg/dL (8.4-10.2); Carbon Dioxide 24 mmol/L (22-30); Chloride 99 mmol/L (98-107); Glucose 198 mg/dL (74-99); Non-African American GFR(CKD) 36 (>60 ml/min/1.73 sqM); Potassium 4.5 mmol/L (3.5-5.1); Sodium 134 mmol/L (137-145); Total Bilirubin 0.5 mg/dL (0.2-1.3); Total Protein 7.9 g/dL (6.3-8.2)
--- NOTE | 2023-07-29 03:01 | CT ---
EXAM: CT Angiography Chest With Intravenous Contrast CLINICAL HISTORY: possible PE TECHNIQUE: Axial computed tomographic angiography images of the chest with intravenous contrast. CTDI is 46.4 mGy and DLP is 424.5 mGy-cm. This CT exam was performed using one or more of the following dose reduction techniques: automated exposure control, adjustment of the mA and/or kV according to patient size, and/or use of iterative reconstruction technique. MIP reconstructed images were created and reviewed. COMPARISON: CT June 08, 2023. FINDINGS: Pulmonary arteries: Unremarkable. No pulmonary embolism. Aorta: No acute findings. No thoracic aortic aneurysm. Lungs: The lungs are stable to the prior study. There is dense consolidation of the majority of the right lower lobe. Much of this represents volume loss. Additionally, there are calcifications in the lower posterior aspect of the right lower lobe which are stable. There is also consolidation in the far posterior and inferior aspect of the left lower lobe, also with some calcifications. There is no new volume loss or infiltration. No pulmonary mass. Pleural space: Unremarkable. No significant effusion. No pneumothorax. Heart: Heavy calcification of the coronary arteries, particularly on the left. No significant pericardial effusion. No evidence of RV dysfunction. Mediastinum: Mild mediastinal lymphadenopathy is stable. Bones/joints: No acute fracture. No dislocation. Soft tissues: Unremarkable. Lymph nodes: Unremarkable. No enlarged lymph nodes. IMPRESSION: No evidence of pulmonary emboli. Chronic changes in both lower lobes as above.
[2023-07-29] MEDS ORDERED: PNEUMONIA PROTOCOL UTILIZED 1 EACH MISC PO PRN (08:25)
[2023-07-29] MEDS ORDERED: ALBUTEROL NEBULIZED 2.5 MG/3 ML INHALATION PRN (08:25)
[2023-07-29] MEDS ORDERED: DOCUSATE 100 MG CAP PO PRN (08:28)
[2023-07-29] MEDS ORDERED: ALBUTEROL HFA INHALER INHALATION PRN (09:20)
[2023-07-29] MEDS: amLODIPine 5 MG TAB PO SCH (10:25)
[2023-07-29] MEDS: METOPROLOL TARTRATE 50 MG TAB PO SCH (10:30)
[2023-07-29] MEDS: APIXABAN 2.5 MG TABLET PO SCH ×2 (10:31→20:49)
[2023-07-29] MEDS: GABAPENTIN 300 MG CAP PO SCH ×2 (10:32→20:49)
[2023-07-29] MEDS: TAMSULOSIN 0.4 MG CAP.ER.24H PO SCH ×2 (10:32→20:49)
[2023-07-29] MEDS: methocarbamoL 500 MG TAB PO SCH ×3 (10:32→21:34)
[2023-07-29] MEDS: MAGNESIUM OXIDE 400 MG TAB PO SCH (10:32)
--- NOTE | 2023-07-29 11:11 | P.HPIM ---
History of Present Illness H&P Date: 07/29/23 Patient is a 78-year-old male with PMH of diabetes mellitus, CKD stage III, hypertension, history of DVT, history of TIA is sent by [facility] for hypoxia and COVID. Staff found that he was hypoxic to the 80s. Apparently too debilitated to take care of himself at [facility]. He reports a wet cough but no other complaints. Nursing reports 2 person assist. He underwent extensive workup in the ED. Vital signs were stable, maintaining low to mid 90s on RA. CBC WBC count 11.8, Hg 11.8. D-Dimer 5.87. CMP Na 134, BUN 35, Cr 1.74. Lactic acid 1.1. Mag 1.7. Flu, RSV negative. COVID + CXR showed right basilar opacities which was present on 06/19/23 EKG sinus tachycardia, RBBB CT head negative for acute pathology CTA chest chronic changes bilateral lower lobes with no PE. Patient was admitted for debility due to COVID 19. General: non toxic, no distress, appears at stated age Derm: warm, dry Head: atraumatic, normocephalic, symmetric Eyes: EOMI, no lid lag, anicteric sclera Cardiovascular: S1S2 reg, no murmur Lungs: CTA bilateral, no rhonchi, no rales , no accessory muscle use Ext: no gross muscle atrophy, no edema, no contractures Neuro: no focal neuro deficits COVID 19 Generalized weakness and debility Elevated D-Dimer Chronic conditions: Diabetes mellitus, CKD stage III, hypertension, history of DVT, history of TIA Based on my assessment of this patient, this patient meets a high complexity level of care. Patient has an acute diagnosis of debility due to COVID 19 which poses a threat to life or bodily function. COVID 19: Currently on RA. No need for treatment. Consider Decadron if becomes hypoxic. Empirically started on Rocephin/Azithromyin for treatment on CAP. Obt ain procal and discontinue antibiotics if normal. Generalized weakness and debility: Fall precautions. PT and OT consult. Elevated D-Dimer: CTA ruled out PE. Eliquis for DVT prophylaxis. FULL CODE. I have reviewed the following construction consultant notes: I have reviewed the results of the following tests: As above. I have ordered the following tests: Procal. LDH. Fibrinogen. I have discussed the care of this patient with the following independent historian: I have independently interpreted the following test below: CXR. I have discussed the management of this patient with the following physician: Past Medical History Past Medical History: CVA/TIA, Diabetes Mellitus, Deep Vein Thrombosis (DVT), Hypertension, Osteoarthritis (OA) Additional Past Medical History / Comment(s): [facility] patient, states has DVT x3 in rt leg, past hx of diabetes and HTN, no longer requires rx since weight loss. states TIA in 2010 residual muscle weakness in rt leg, wears brace rt leg, uti . 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, pacemaker/ACID placed 2017 History of Any Multi-Drug Resistant Organisms: MRSA Date of last positivie culture/infection: 06/08/23 MDRO Source:: Sputum Past Surgical History: Back Surgery, Hernia Repair, Orthopedic Surgery, Pacemaker Additional Past Surgical History / Comment(s): cervical fusion, right hip replacement, cataract surgery, penile implant Past Anesthesia/Blood Transfusion Reactions: No Reported Reaction Type of Cardiac Device: Permanent Pacemaker, AICD, Unknown Device Placement Date:: May 2018 Past Psychological History: No Psychological Hx Reported Smoking Status: Never smoker Past Alcohol Use History: None Reported Past Drug Use History: None Reported - Past Family History Mother Family Medical History: Cancer Father Family Medical History: Cancer, Coronary Artery Disease (CAD) Medications and Allergies Home Medications Medication Instructions Recorded Confirmed Type Atorvastatin [Lipitor] 10 mg PO HS 10/29/18 07/28/23 History Magnesium Oxide 400 mg PO DAILY 07/07/21 07/28/23 History Metoprolol Tartrate [Lopressor] 50 mg PO DAILY 07/07/21 07/28/23 History Tamsulosin [Flomax] 0.4 mg PO BID #0 capsule 09/13/21 07/28/23 Rx Apixaban [Eliquis] 2.5 mg PO BID 11/11/22 07/28/23 History L.acidoph,Paracasei, B.lactis 1 cap PO DAILY 11/11/22 07/28/23 History [Probiotic] Sennosides [Senokot] 8.6 mg PO HS PRN 11/11/22 07/28/23 History Calcium Carbonate [Calcium] 600 mg PO BID 01/10/23 07/28/23 History Multivit-Mins/Iron/Folic/Lycop 1 tab PO DAILY 01/10/23 07/28/23 History [Centrum Men's Tablet] Menthol-Zinc Oxide Oint 1 applic TOPICAL TID PRN 05/18/23 07/28/23 History [Calmoseptine Ointment] Docusate [Colace] 100 mg PO DAILY PRN 06/19/23 07/28/23 History Ketoconazole 2% Shampoo [Nizoral] 1 applic TOPICAL DIRECTED 06/19/23 07/28/23 History Medihoney 100% Topical Paste 1 applic TOPICAL DAILY 06/19/23 07/28/23 History Phenyleph/Mineral Oil/Petrolat 1 applic RECTAL BID 06/19/23 07/28/23 History [Preparation H Ointment] Ferrous Sulfate [Iron (65 MG 325 mg PO DAILY tab 06/23/23 07/28/23 Rx Elemental)] Gabapentin [Neurontin] 300 mg PO BID #6 cap 06/23/23 07/28/23 Rx amLODIPine [Norvasc] 5 mg PO DAILY tab 06/23/23 07/28/23 Rx methocarbamoL 1,000 mg PO TID 07/28/23 07/28/23 History oxyCODONE-APAP 7.5-325MG [Percocet 1 tab PO TID PRN 07/28/23 07/28/23 History 7.5-325 mg] Nirmatrelvir/Ritonavir [Paxlovid 1 each PO ONCE #1 pack 07/29/23 Rx 2X150 mg-100 mg (Eua)] Allergies Allergy/AdvReac Type Severity Reaction Status Date / Time ciprofloxacin [From Cipro] Allergy Unknown Verified 07/28/23 19:32 doxazosin Allergy Unknown Verified 07/28/23 19:32 Physical Exam Vitals: Vital Signs Temp Pulse Resp BP Pulse Ox 07/29/23 07:00 70 18 166/79 98 07/29/23 00:00 81 18 179/85 97 07/28/23 23:30 87 18 170/76 98 07/28/23 22:30 89 18 166/75 98 07/28/23 21:32 98.5 F 96 18 148/79 93 L 07/28/23 19:24 98.9 F 103 H 16 147/78 95 Intake and Output 07/28/23 07/29/2323 22:59 06:59 14:59 Output Total 400 450 Balance -400 -450 Output: Urine 400 450 Other: Weight 79.379 kg Results CBC & Chem 7: 07/28/23 19:55 07/28/23 22:44 Labs: Abnormal Lab Results - Last 24 Hours (Table) 07/28/23 07/28/23 07/28/23 Range/Units 19:55 19:55 19:56 WBC 11.8 H (3.8-10.6) k/uL Hgb 11.8 L (13.0-17.5) gm/dL Hct 35.8 L (39.0-53.0) % RDW 19.0 H (11.5-15.5) % Neutrophils # (Manual) 8.90 H (1.3-7.7) k/uL Monocytes # (Manual) 1.53 H (0-1.0) k/uL D-Dimer 5.87 H (<0.60) mg/L FEU Sodium (137-145) mmol/L BUN (9-20) mg/dL Creatinine (0.66-1.25) mg/dL Glucose (74-99) mg/dL SARS-CoV-2 (PCR) Detected A (Not Detectd) 07/28/23 Range/Units 22:44 WBC (3.8-10.6) k/uL Hgb (13.0-17.5) gm/dL Hct (39.0-53.0) % RDW (11.5-15.5) % Neutrophils # (Manual) (1.3-7.7) k/uL Monocytes # (Manual) (0-1.0) k/uL D-Dimer (<0.60) mg/L FEU Sodium 134 L (137-145) mmol/L BUN 35 H (9-20) mg/dL Creatinine 1.74 H (0.66-1.25) mg/dL Glucose 198 H (74-99) mg/dL SARS-CoV-2 (PCR) (Not Detectd)
[2023-07-29] MEDS: ATORVASTATIN 10 MG TAB PO SCH (20:49)
[2023-07-29] MEDS: oxyCODONE-APAP 7.5-325MG 1 EACH TAB PO PRN (21:34)
[2023-07-30 06:15] LABS: Glucose,Whole Blood 133 mg/dL (70-110)
--- NOTE | 2023-07-30 07:24 | XR ---
EXAMINATION TYPE: XR chest 1V portable DATE OF EXAM: 07/30/2023 7:19 AM COMPARISON: Chest radiographs from TECHNIQUE: XR chest 1V portable Frontal view of the chest. CLINICAL INDICATION:Male, 78 years old with history of pneumonia; FINDINGS: Lungs/Pleura: No pleural effusion or pneumothorax. Improvement in right basilar airspace opacities. Pulmonary vascularity: Unremarkable. Heart/mediastinum: Cardiomediastinal silhouette is unremarkable. Atherosclerotic calcifications are seen in the aorta. Two lead cardiac conduction device overlying the left hemithorax with lead tips pr ojecting over the right ventricle and right atrium. Musculoskeletal: No acute osseous pathology. Partial visualization of cervical fusion hardware. IMPRESSION: Improvement in right basilar airspace opacities from prior exam.
[2023-07-30] MEDS: oxyCODONE-APAP 7.5-325MG 1 EACH TAB PO PRN ×2 (08:27→16:15)
[2023-07-30] MEDS: AZITHROMYCIN 500 MG TAB PO SCH (08:27)
[2023-07-30] MEDS: methocarbamoL 500 MG TAB PO SCH ×3 (08:27→20:46)
[2023-07-30] MEDS: TAMSULOSIN 0.4 MG CAP.ER.24H PO SCH ×2 (08:28→20:46)
[2023-07-30] MEDS: MAGNESIUM OXIDE 400 MG TAB PO SCH (08:28)
[2023-07-30] MEDS: amLODIPine 5 MG TAB PO SCH (08:28)
[2023-07-30] MEDS: METOPROLOL TARTRATE 50 MG TAB PO SCH (08:28)
[2023-07-30] MEDS: GABAPENTIN 300 MG CAP PO SCH ×2 (08:29→20:46)
[2023-07-30] MEDS: APIXABAN 2.5 MG TABLET PO SCH ×2 (08:29→20:46)
[2023-07-30 11:37] LABS: Glucose,Whole Blood 227 mg/dL (70-110)
--- NOTE | 2023-07-30 13:44 | P.PN ---
Subjective Progress Note Date: 07/30/23 Hospital course: Patient is a very pleasant 78-year-old male with a past medical history of CAD status post pacemaker/AICD placement, hypertension, hyperlipidemia, type II [id number] diabetes mellitus, history of CVA/TIA, and DVTs on anticoagulation with Eliquis. She presented to the emergency department on 07/29/23% by PCP at [place] [facility] for concerns of hypoxia with Covid 19 infection. He underwent full evaluation in the emergency department. CBC showing leukocytosis with WBC count of 11.8. D-dimer elevated at 5.87. BMP revealing hyponatremia with sodium 134 and acute kidney injury on chronic kidney disease with BUN of 35, creatinine 1.74, and GFR of 36. Influenza A, RSV, and urine Legionella were all negative. Covid PCR was positive. CTA was completed secondary to elevated d-dimer was negative for pulmonary emboli. CT brain was negative for acute intercranial process. Patient was admitted under our services. Physical exam: Vital signs reviewed and stable. General: Nontoxic, no acute distres. Frail and emaciated. Derm: Skin warm and dry, normal coloration for ethnicity. Head: Atraumatic, normocephalic and symmetric. Eyes: EOMs intact, no lid lag, and anicteric sclera Mouth: no lip lesions, mucus membranes moist Cardiovascular: regular rate and rhythm with normal S1S2, systolic murmur, positive posterior tibial pulses bilaterally, and cap refill < 2 seconds. Lungs: Respirations even, regular, and unlabored on room air. Lungs CTA bilaterally, no rhonchi, no rales, no wheezing, and no accessory muscle usage. Abdominal: soft, nontender to palpation, no guarding, no appreciable organomegaly Ext: ROM intact. No gross muscle atrophy, no edema, no contractures Neuro: Speech clear, face symmetrical and CN II-XII grossly intact with no noted focal neuro deficits Psych: Alert and oriented to person, place, time, and situation. Appropriate and pleasant affect. Assessment and Plan of Care: COVID 19 Generalized weakness and debility Elevated D-Dimer Based on my assessment of this patient, this patient meets a high complexity level of care. Patient has an acute diagnosis of debility due to COVID 19 which poses a threat to life or bodily function. COVID 19: Currently on RA. No need for treatment. Continue wound droplet/contact precautions. Consider Decadron if becomes hypoxic. Empirically started on Rocephin/Azithromyin for treatment on CAP. Obtain procal and discontinue antibiotics if normal. Pro-calcitonin was positive at 0.94. Patient to continue three-day course of azithromycin and 5 day course of Rocephin for treatment of community-acquired pneumonia. (Patient is on day 2 of antibiotics) Generalized weakness and debility: Fall precautions. PT and OT consult, appr eciate recommendations. Elevated D-Dimer: CTA ruled out PE. Chronic conditions: CKD stage III, hypertension, history of DVT, history of TIA. Patient to continue daily medication regimen with amlodipine 5 mg daily, Eliquis 2.5 mg twice daily, atorvastatin 10 mg nightly, Neurontin 300 mg twice daily, metoprolol 50 mg daily, and Flomax 0.4 mg twice daily. Data reviewed: -Vital signs reviewed. Blood pressure 155/63, heart rate 75, respiratory rate 16, temp 98.0F, SpO2 93% on room air. -Urine Legionella negative. -Labs completed and reviewed . Pro-Calcitonin was elevated at 0.94, LDH also elevated at 268. DVT prophylaxis: Joannaquis Discussed with: Patient and RN Anticipated discharge date: Likely 24-[address]: [facility] pending PT/OT evaluation and patient's required level of assistance Patient was seen independently by Nurse Pracitioner. This document was prepared using [employer] dictation software. Please allow for errors in graduate engineer, while rare they do occur. I reviewed the documentation as provided by the GARY above, who is the original author of this note. I agree with the documented assessment and plan, with the following changes: none Objective - Vital Signs Vital signs: Vital Signs Temp 98.0 F 07/30/23 07:36 Pulse 75 07/30/23 07:36 Resp 16 07/30/23 07:36 BP 155/63 07/30/23 07:36 Pulse Ox 93 L 07/30/23 07:36 FiO2 Intake & Output 07/29/23 07/30/23 07/30/23 18:59 06:59 18:59 Output Total 450 250 Balance -450 -250 Weight 79.379 kg Output: Urine 450 250 Other: Voiding Method External Catheter - Labs CBC & Chem 7: 07/28/23 19:55 07/28/23 22:44 Labs: Abnormal Lab Results - Last 24 Hours (Table) 07/30/23 Range/Units 06:13 POC Glucose (mg/dL) 133 H (70-110) mg/dL
[2023-07-30 16:45] LABS: Glucose,Whole Blood 171 mg/dL (70-110)
[2023-07-30] MEDS: ATORVASTATIN 10 MG TAB PO SCH (20:46)
[2023-07-30 21:20] LABS: Glucose,Whole Blood 191 mg/dL (70-110)
[2023-07-31 06:18] LABS: Glucose,Whole Blood 113 mg/dL (70-110)
[2023-07-31 08:04] VITALS: RESP 17
[2023-07-31] MEDS: oxyCODONE-APAP 7.5-325MG 1 EACH TAB PO PRN (10:02)
[2023-07-31] MEDS: amLODIPine 5 MG TAB PO SCH (10:03)
[2023-07-31] MEDS: MAGNESIUM OXIDE 400 MG TAB PO SCH (10:03)
[2023-07-31] MEDS: METOPROLOL TARTRATE 50 MG TAB PO SCH (10:04)
[2023-07-31] MEDS: TAMSULOSIN 0.4 MG CAP.ER.24H PO SCH (10:04)
[2023-07-31] MEDS: GABAPENTIN 300 MG CAP PO SCH (10:04)
[2023-07-31] MEDS: AZITHROMYCIN 500 MG TAB PO SCH (10:04)
[2023-07-31] MEDS: APIXABAN 2.5 MG TABLET PO SCH (10:07)
[2023-07-31] MEDS: methocarbamoL 500 MG TAB PO SCH ×2 (10:08→18:49)
[2023-07-31 11:42] LABS: Glucose,Whole Blood 124 mg/dL (70-110)
[2023-07-31 14:12] VITALS: BMI 26.6
--- NOTE | 2023-07-31 14:44 | P.DS ---
Providers Date of admission: 07/29/23 08:28 Expected date of discharge: 07/31/23 Attending physician: Andrea Carrington MD Primary care physician: Zeeshan William MD Hospital Course: Discharge Diagnosis: Asymptomatic COVID 19 Generalized weakness and debility Elevated D-Dimer Hospital Course: Patient is a very pleasant 78-year-old male with a past medical history of CAD status post pacemaker/AICD placement, hypertension, hyperlipidemia, type II zmb-dksguqp-glmnpevaj diabetes mellitus, history of CVA/TIA, and DVTs on anticoagulation with Eliquis. She presented to the emergency department on 07/29/23% by PCP at [facility] for concerns of hypoxia with Covid 19 infection. He underwent full evaluation in the emergency department. CBC showing leukocytosis with WBC count of 11.8. D-dimer elevated at 5.87. BMP revealing hyponatremia with sodium 134 and acute kidney injury on chronic kidney disease with BUN of 35, creatinine 1.74, and GFR of 36. Influenza A, RSV, and urine Legionella were all negative. Covid PCR was positive. CTA was completed secondary to elevated d-dimer was negative for pulmonary emboli. CT brain was negative for acute intercranial process. Patient on room air. Plan discussed with PCP. Patient going back to [place] residence. Patient seen and examined at bedside. Vital signs reviewed and stable. General: Nontoxic, no acute distres. Frail and emaciated. Derm: Skin warm and dry, normal coloration for ethnicity. Head: Atraumatic, normocephalic and symmetric. Eyes: EOMs intact, no lid lag, and anicteric sclera Mouth: no lip lesions, mucus membranes moist Cardiovascular: regular rate and rhythm with normal S1S2, systolic murmur, positive posterior tibial pulses bilaterally, and cap refill < 2 seconds. Lungs: Respirations even, regular, and unlabored on room air. Lungs CTA bilater ally, no rhonchi, no rales, no wheezing, and no accessory muscle usage. Abdominal: soft, nontender to palpation, no guarding, no appreciable organomegaly Ext: ROM intact. No gross muscle atrophy, no edema, no contractures Neuro: Speech clear, face symmetrical and CN II-XII grossly intact with no noted focal neuro deficits Psych: Alert and oriented to person, place, time, and situation. Appropriate and pleasant affect. A total of 55 minutes of time were spent preparing this complex discharge summary. Patient was discharged on 07/31/23 at 14:06. Patient Condition at Discharge: Stable Plan - Discharge Summary Discharge Rx Participant: No New Discharge Prescriptions: Continue Atorvastatin [Lipitor] 10 mg PO HS Magnesium Oxide 400 mg PO DAILY Metoprolol Tartrate [Lopressor] 50 mg PO DAILY Tamsulosin [Flomax] 0.4 mg PO BID #0 capsule L.acidoph,Paracasei, B.lactis [Probiotic] 1 cap PO DAILY Apixaban [Eliquis] 2.5 mg PO BID Docusate [Colace] 100 mg PO DAILY PRN PRN Reason: Constipation Phenyleph/Mineral Oil/Petrolat [Preparation H Ointment] 1 applic RECTAL BID Ketoconazole 2% Shampoo [Nizoral] 1 applic TOPICAL DIRECTED amLODIPine [Norvasc] 5 mg PO DAILY tab Gabapentin [Neurontin] 300 mg PO BID #6 cap oxyCODONE-APAP 7.5-325MG [Percocet 7.5-325 mg] 1 tab PO TID PRN PRN Reason: Pain Sennosides [Senokot] 8.6 mg PO HS PRN PRN Reason: No BM for 48 hours Multivit-Mins/Iron/Folic/Lycop [Centrum Men's Tablet] 1 tab PO DAILY Calcium Carbonate [Calcium] 600 mg PO BID Menthol-Zinc Oxide Oint [Calmoseptine Ointment] 1 applic TOPICAL TID PRN PRN Reason: sacrum dermatitis Medihoney 100% Topical Paste 1 applic TOPICAL DAILY Ferrous Sulfate [Iron (65 MG Elemental)] 325 mg PO DAILY tab methocarbamoL 1,000 mg PO TID Discharge Medication List Atorvastatin [Lipitor] 10 mg PO HS 10/29/18 [History] Magnesium Oxide 400 mg PO DAILY 07/07/21 [History] Metoprolol Tartrate [Lopressor] 50 mg PO DAILY 07/07/21 [History] Tamsulosin [Flomax] 0.4 mg PO BID #0 capsule 09/13/21 [Rx] Apixaban [Eliquis] 2.5 mg PO BID 11/11/22 [History] L.acidoph,Paracasei, B.lactis [Probiotic] 1 cap PO DAILY 11/11/22 [History] Sennosides [Senokot] 8.6 mg PO HS PRN 11/11/22 [History] Calcium Carbonate [Calcium] 600 mg PO BID 01/10/23 [History] Multivit-Mins/Iron/Folic/Lycop [Centrum Men's Tablet] 1 tab PO DAILY 01/10/23 [History] Menthol-Zinc Oxide Oint [Calmoseptine Ointment] 1 applic TOPICAL TID PRN 05/18/23 [History] Docusate [Colace] 100 mg PO DAILY PRN 06/19/23 [History] Ketoconazole 2% Shampoo [Nizoral] 1 applic TOPICAL DIRECTED 06/19/23 [History] Medihoney 100% Topical Paste 1 applic TOPICAL DAILY 06/19/23 [History] Phenyleph/Mineral Oil/Petrolat [Preparation H Ointment] 1 applic RECTAL BID 06/19/23 [History] Ferrous Sulfate [Iron (65 MG Elemental)] 325 mg PO DAILY tab 06/23/23 [Rx] Gabapentin [Neurontin] 300 mg PO BID #6 cap 06/23/23 [Rx] amLODIPine [Norvasc] 5 mg PO DAILY tab 06/23/23 [Rx] methocarbamoL 1,000 mg PO TID 07/28/23 [History] oxyCODONE-APAP 7.5-325MG [Percocet 7.5-325 mg] 1 tab PO TID PRN 07/28/23 [History] Follow up Appointment(s)/Referral(s): Zeeshan William MD [Primary Care Provider] - 1-2 days (office not answering please call to schedule appointment ) Patient Instructions/Handouts: COVID-19 (Coronavirus Disease 2019) (ED) Activity/Diet/Wound Care/Special Instructions: Please see your PCP. Discharge Disposition: OTHER INSTITUTION NOT DEFINED
[2023-07-31 14:58] VITALS: BP 122/74; PULSE 78; TEMP 98.2
[2023-07-31 16:49] LABS: Glucose,Whole Blood 122 mg/dL (70-110)
--- NOTE | 2023-08-20 14:28 | CDI ---
Documentation Clarification Form Date: 08/20/2023 01:19:58 PM From: Maria Elena Crowell RN CCDS Phone: [phone] Admit Date: 07/29/2023 08:28:00 AM Patient Name: Ryan Lucas Visit Number: [id number] Discharge Date: 07/31/2023 08:30:00 PM ATTENTION: The Clinical Documentation Specialists (CDI) and [facility] Coding Staff appreciate your assistance in clarifying documentation. Please respond to the clarification below the line at the bottom and electronically sign. The CDI & [facility] Coding staff will review the response and follow-up if needed. Please note: Queries are made part of the Legal Health Record. If you have any questions, please contact the author of this message via ITS. Dr. Dre Garcia The patients principal diagnosis the diagnosis that was chiefly responsible for the admission - has not been clearly identified and clarification is requested. The patient presented with the following Hypoxia, Debilitated and a wet cough. History/Risk factors: 78-year-old male presented via EMS from home. The patient is a [facility] participant and was found to be hypoxic gravely disabled and recent positive COVID 19 test. Medical history CKD 3, HTN, DVT, TIA and DM. 07/29, H&P. Clinical Indicators: Admitting Diagnoses: COVID 19, generalized weakness and debility, Elevated D- Dimer. H&P, 07/29. Discharge Diagnoses: Asymptomatic COVID 19, Generalized weakness and debility and Elevated D-Dimer. Discharge Summary, 07/31. Lab findings, 07/28: Wbc 11.8; Hgb 11.8; Hct 35.8; Neutrophils 8.90; Lymphocytes 1.53 D dimer 5.87; NA 134; BUN 35; CR 1.74; GFR 198; SARS-CoV-2 (PCR) Detected A Sputum Culture, 07/29: Methicillin resist S aureus Radiology: CXR, 07/28: Low lung volumes with cardiomegaly. There may be right basilar airspace opacities which persist on todays exam also present 06/19/2023 CXR, 07/30: Improvement in right basilar airspace opacities from prior exam. CT Chest with Intravenous Contrast: No evidence of pulmonary emboli Vital Signs: 07/28 B/P 147/78; HR 103; Temp 98.9 F oral; RR 16; SpO2 95% room air Progress note, 07/30:Patient to continue three day course of azithromycin and 5 day course of Rocephin for treatment of community acquired pneumonia. COVID 19: currently on RA: No need for treatment. Treatment: 07/28 Decadron IV x 1; Azithromycin IVPB x 1;07/29 Ceftriaxone IVPB Q24HR 5 bags ordered; Eliquis; Ventolin Inhaler PRN; Norvasc PO Daily; Neruontin PO BID; Mag Ox PO Daily; Robaxin PO TID; Lipitor PO HS; 07/30 Zithromax PO Daily x 3 doses. In your professional opinion, can you please clarify which diagnosis, after study, was the reason chiefly responsible for the admission? [ ] COVID 19 [ x ] Pneumonia (please specify organism, if known) [ ] LACHELLE with hyponatremia [ ] Other, please specify [ ] Unable to determine (Template Last Revised: November 2020) MTDD
== END 2023-07-31 20:30 | disposition other institution (70) | DRG 193 ==
LOC: EC 19:10 → 4SSUR 07-29 08:28
PROVIDERS: ADMIT Internal Medicine; ATTEND Internal Medicine
DX: J18.8 Other pneumonia, unspecified organism (principal); U07.1 COVID-19; I12.9 Hypertensive chronic kidney disease with stage 1 through stage 4 chronic kidney disease, or unspecified chronic kidney disease; M19.90 Unspecified osteoarthritis, unspecified site; E11.22 Type 2 diabetes mellitus with diabetic chronic kidney disease; N18.30 Chronic kidney disease, stage 3 unspecified; E78.5 Hyperlipidemia, unspecified; Z96.651 Presence of right artificial knee joint; Z86.14 Personal history of Methicillin resistant Staphylococcus aureus infection; Z86.73 Personal history of transient ischemic attack (TIA), and cerebral infarction without residual deficits; Z98.1 Arthrodesis status; Z86.718 Personal history of other venous thrombosis and embolism; Z95.810 Presence of automatic (implantable) cardiac defibrillator; Z88.1 Allergy status to other antibiotic agents
CPT/HCPCS: 36415; 70450; 71045; 71046; 71275; 80053; 83605; 83615; 83735; 84145; 85025; 85379; 85384; 87040; 87070; 87077; 87186; 87205; 87449; 87636; 93005; 94760; 96365; 96366; 96375; 99285

== ENCOUNTER 2023-09-02 15:57 | Emergency (ER) | payer OTHER ==
[2023-09-02 16:13] VITALS: RESP 18
[2023-09-02] MEDS ORDERED: KETOROLAC 15 MG/ML 1 ML VIAL IM STA (16:31)
[2023-09-02] MEDS ORDERED: LIDOCAINE 2%-EPI 1:100,000 20 ML VIAL SQ STA (16:42)
--- NOTE | 2023-09-02 17:35 | CT ---
EXAMINATION TYPE: CT brain cspine wo con CT DLP: 621.9 mGycm, Automated exposure control for dose reduction was used. DATE OF EXAM: 09/02/2023 5:16 PM COMPARISON: 07/28/2023. CLINICAL INDICATION:Male, 78 years old with history of s/p fall on eliquis; Fall on eliquis TECHNIQUE: Brain: Multiple axial CT images of the brain were obtained without IV contrast. Cspine: Axial CT images from the skull base to the inferior aspect of T2 we obtained without intraven ous contrast. Coronal and sagittal reformatted images were also reviewed. FINDINGS: Brain: Extra-axial spaces: No abnormal extra-axial fluid collections. Ventricular system: Dilatation in proportion to cerebral atrophy. Cerebral parenchyma: Cerebral atrophy. No acute intraparenchymal hemorrhage or mass effect. The dave dion of the tamayo-white junctions are well differentiated. Cerebellum: Unremarkable. Mass effect: No evidence of midline shift. Intracranial vasculature: Atherosclerotic calcifications of the intracranial vessels. Soft tissues: Right frontal soft tissue edema. Calvarium/osseous structures: No depressed skull fracture. Paranasal sinuses and mastoid air cells: Clear. Visualized orbits: Bilaterally aphakia. Cervical spine: Fracture: None. Osseous structures: Postsurgical changes spine with hardware in place. There is fixation screw throug h the C2 odontoid process. Anterior fixation from C3 to C6. Posterior fixation of the lower cervical thoracic junction. Multilevel degenerative disc disease changes with endplate spurring and disc osteo phyte complex's. Vertebral alignment: Within normal limits. Spinal canal/Neural Foramina: No evidence of significant spinal canal narrowing. No evidence for sign ificant neural foraminal stenosis. Neck soft tissues: Prevertebral soft tissues are within normal limits. Other: The airway is patent. The lung apices are clear. Atherosclerosis of the carotid bifurcations. IMPRESSION: 1. No acute intracranial process. 2. Right frontal scalp edema. 3. Nonspecific white matter changes, likely secondary to chronic small vessel ischemic disease. 4. No evidence of cervical spine fracture. 5. Mild multilevel degenerative disc disease. 6. Postsurgical changes to the spine with hardware in place. No evidence of fracture.
[2023-09-02] MEDS ORDERED: BACITRACIN OINT 1 EACH PACKET TOPICAL ONE (18:16)
--- NOTE | 2023-09-02 18:22 | ED ---
Fall HPI - General Chief Complaint: Fall Stated Complaint: Fall, head injury Time Seen by Provider: 09/02/23 16:19 Source: patient, EMS Mode of arrival: EMS - History of Present Illness Initial Comments: 78 year old Male presenting to the ED with a chief complaint of head injury. Patient is on Eliquis for history of A. fib. Patient states today he was in his wheelchair and was trying to tie one of his shoes shoelaces. A cushion on his wheelchair slipped out from underneath him causing him to lose his balance and fall forward. States he hit his forehead on the hardwood floor. No LOC at this time. No other injuries at this time. Now notes headache and laceration to his forehead. No other complaints. Patient reports his last tetanus shot was within the last 10 years. - Related Data Home Medications Medication Instructions Recorded Confirmed Atorvastatin [Lipitor] 10 mg PO HS 10/29/18 07/28/23 Magnesium Oxide 400 mg PO DAILY 07/07/21 07/28/23 Metoprolol Tartrate [Lopressor] 50 mg PO DAILY 07/07/21 07/28/23 Apixaban [Eliquis] 2.5 mg PO BID 11/11/22 07/28/23 L.acidoph,Paracasei, B.lactis 1 cap PO DAILY 11/11/22 07/28/23 [Probiotic] Sennosides [Senokot] 8.6 mg PO HS PRN 11/11/22 07/28/23 Calcium Carbonate [Calcium] 600 mg PO BID 01/10/23 07/28/23 Multivit-Mins/Iron/Folic/Lycop 1 tab PO DAILY 01/10/23 07/28/23 [Centrum Men's Tablet] Menthol-Zinc Oxide Oint 1 applic TOPICAL TID PRN 05/18/23 07/28/23 [Calmoseptine Ointment] Docusate [Colace] 100 mg PO DAILY PRN 06/19/23 07/28/23 Ketoconazole 2% Shampoo [Nizoral] 1 applic TOPICAL DIRECTED 06/19/23 07/28/23 Medihoney 100% Topical Paste 1 applic TOPICAL DAILY 06/19/23 07/28/23 Phenyleph/Mineral Oil/Petrolat 1 applic RECTAL BID 06/19/23 07/28/23 [Preparation H Ointment] methocarbamoL 1,000 mg PO TID 07/28/23 07/28/23 oxyCODONE-APAP 7.5-325MG [Percocet 1 tab PO TID PRN 07/28/23 07/28/23 7.5-325 mg] Previous Rx's Medication Instructions Recorded Tamsulosin [Flomax] 0.4 mg PO BID #0 capsule 09/13/21 Ferrous Sulfate [Iron (65 MG 325 mg PO DAILY tab 06/23/23 Elemental)] Gabapentin [Neurontin] 300 mg PO BID #6 cap 06/23/23 amLODIPine [Norvasc] 5 mg PO DAILY tab 06/23/23 Allergies Allergy/AdvReac Type Severity Reaction Status Date / Time ciprofloxacin [From Cipro] Allergy Unknown Verified 09/02/23 16:05 doxazosin Allergy Unknown Verified 09/02/23 16:05 Review of Systems ROS Statement: Those systems with pertinent positive or pertinent negative responses have been documented in the HPI. ROS Other: All systems not noted in ROS Statement are negative. Past Medical History Past Medical History: CVA/TIA, Diabetes Mellitus, Deep Vein Thrombosis (DVT), Hypertension, Osteoarthritis (OA) Additional Past Medical History / Comment(s): Wound center patient, states has DVT x3 in rt leg, past hx of diabetes and HTN, no longer requires rx since weight loss. states TIA in 2010 residual muscle weakness in rt leg, wears brace rt leg, uti . 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, pacemaker/ACID placed 2017 History of Any Multi-Drug Resistant Organisms: MRSA Date of last positivie culture/infection: 07/29/23 MDRO Source:: Sputum Past Surgical History: Back Surgery, Hernia Repair, Orthopedic Surgery, Pacemaker Additional Past Surgical History / Comment(s): cervical fusion, right hip replacement, cataract surgery, penile implant Past Anesthesia/Blood Transfusion Reactions: No Reported Reaction Type of Cardiac Device: Permanent Pacemaker, AICD, Unknown Device Placement Date:: May 2018 Past Psychological History: No Psychological Hx Reported Smoking Status: Never smoker Past Alcohol Use History: None Reported Past Drug Use History: None Reported - Past Family History Mother Family Medical History: Cancer Father Family Medical History: Cancer, Coronary Artery Disease (CAD) General Exam Limitations: no limitations General appearance: alert, in no apparent distress Head exam: Present: other (No batles signs or racoons eyes. Approximately 4 cm laceration to the patient's forehead.) Eye exam: Present: PERRL, EOMI Neck exam: Present: normal inspection Respiratory exam: Present: normal lung sounds bilaterally Cardiovascular Exam: Present: regular rate GI/Abdominal exam: Present: soft Extremities exam: Present: normal inspection Back exam: Present: normal inspection Neurological exam: Present: alert, oriented X3, CN II-XII intact Course Vital Signs 09/02/23 16:00 Temperature 98.4 F Pulse Rate 73 Respiratory 18 Rate Blood Pressure 181/84 O2 Sat by Pulse 96 Oximetry Procedures - Laceration Laceration #1 Consent Obtained: verbal consent Site: scalp Size (cm): 4 Description: linear Depth: simple, single layer Anesthetic Used: lidocaine 2%, with epi Anesthesia Technique: local infiltration Amount (mls): 4 Pre-repair: wound explored, irrigated extensively, deep structures intact Type of Sutures: nylon Size of Sutures: 5-0 Number of Sutures: 4 Technique: simple, interrupted Patient Tolerated Procedure: well, no complications Medical Decision Making - Medical Decision Making Was pt. sent in by a medical professional or institution (, PA, POLICE CLERK, urgent care, hospital, or residential...) When possible be specific @ -No Did you speak to anyone other than the patient for history (EMS, parent, family, police, friend...)? What history was obtained from this source @ -No Did you review nursing and triage notes (agree or disagree)? Why? @ -I reviewed and agree with nursing and triage notes Were old charts reviewed (outside hosp., previous admission, EMS record, old EKG, old radiological studies, urgent care reports/EKG's, residential records)? Report findings @ -No old charts were reviewed Differential Diagnosis (chest pain, altered mental status, abdominal pain women, abdominal pain men, vaginal bleeding, weakness, fever, dyspnea, syncope, headache, dizziness, GI bleed, back pain, seizure, CVA, palpatations, mental health, musculoskeletal)? @ -Differential Headache: Migraine, tension, cluster, carbon monoxide, central venous thrombosis, pension karma temporal arteritis, acute closure glaucoma, intercranial hemorrhage, mastoiditis, sinusitis, head injury, this is not meant to be an all-inclusive list. EKG interpreted by me (3pts min.). @ -None X-rays interpreted by me (1pt min.). @ -None done CT interpreted by me (1pt min.). @ -CT brain C-spine interpreted by me showing no evidence of acute finding. U/S interpreted by me (1pt. min.). @ -None done What testing was considered but not performed or refused? (CT, X-rays, U/S, labs)? Why? @ -None What meds were considered but not given or refused? Why? @ -None Did you discuss the management of the patient with other professionals (professionals i.e. , PA, POLICE CLERK, lab, RT, psych nurse, social services coordinator, senior linux systems administrator, teacher, systems support officer, case supervisor)? Give summary @ -No Was smoking cessation discussed for >3mins.? @ -No Was critical care preformed (if so, how long)? @ -No Were there social determinants of health that impacted care today? How? (Homelessness, low income, unemployed, alcoholism, drug addiction, transportation, low edu. Level, literacy, decrease access to med. care, detention, rehab)? @ -No Was there de-escalation of care discussed even if they declined (Discuss DNR or withdrawal of care, Hospice)? DNR status @ -No What co-morbidities impacted this encounter? (DM, HTN, Smoking, COPD, CAD, Cancer, CVA, ARF, Chemo, Hep., AIDS, mental health diagnosis, sleep apnea, morbid obesity)? @ -A-fb on [email or web address] Was patient admitted / discharged? Hospital course, mention meds given and route, prescriptions, significant lab abnormalities, going to OR and other pertinent info. @ -Discharge 78-year-old male presenting status post mechanical fall on Eliquis with history of A. fib presents to the ED with a chief complaint of head injury. CT brain C- spine show no evidence of acute finding. Per patient, tetanus status up-to-date. Patient had laceration repaired. After repair, was covered with bacitracin and dressed. Discharged home in stable condition. Discussed return precautions with patient who verbalizes agreement. Undiagnosed new problem with uncertain prognosis? @ -No Drug Therapy requiring intensive monitoring for toxicity (Heparin, Nitro, Insulin, Cardizem)? @ -No Were any procedures done? @ -Yes, laceration repair Diagnosis/symptom? @ -S/p mechanical fall, laceration Acute, or Chronic, or Acute on Chronic? @ -Acute Uncomplicated (without systemic symptoms) or Complicated (systemic symptoms)? @ -Uncomplicated Side effects of treatment? @ -No Exacerbation, Progression, or Severe Exacerbation? @ -No Poses a threat to life or bodily function? How? (Chest pain, [place], [place], pneumonia, PE, COPD, DKA, ARF, appy, cholecystitis, CVA, Diverticulitis, Homicidal, Suicidal, threat to staff... and all critical care pts) @ -No Disposition Clinical Impression: Fall, Laceration Disposition: HOME SELF-CARE Condition: Good Instructions (If sedation given, give patient instructions): Fall Prevention for Older Adults (ED), Care For Your Stitches (ED) Additional Instructions: Please return to the Emergency Department if symptoms worsen or any other concerns. Please monitor for signs of infection including redness, warmth, swelling, fever. Return in 7-10 days for suture removal. Is patient prescribed a controlled substance at d/c from ED?: No Referrals: Zeeshan William MD [Primary Care Provider] - 1-2 days Time of Disposition: 18:28
[2023-09-02 18:43] VITALS: BP 135/78; PULSE 72; TEMP 97.9
== END 2023-09-02 20:15 | disposition home or self-care (01) ==
LOC: EC 15:57
DX: S01.81XA Laceration without foreign body of other part of head, initial encounter (principal); I10 Essential (primary) hypertension; E11.9 Type 2 diabetes mellitus without complications; I48.91 Unspecified atrial fibrillation; M19.90 Unspecified osteoarthritis, unspecified site; Z79.01 Long term (current) use of anticoagulants; Z79.899 Other long term (current) drug therapy; Z88.1 Allergy status to other antibiotic agents; Z88.8 Allergy status to other drugs, medicaments and biological substances; W01.0XXA Fall on same level from slipping, tripping and stumbling without subsequent striking against object, initial encounter
CPT/HCPCS: 72125; 70450; 99285; 96372; 12002; J1885

== ENCOUNTER 2023-10-10 10:45 | Inpatient (IN) | payer OTHER ==
--- NOTE | 2023-10-10 11:38 | ED ---
Weakness HPI - General Source: patient, RN notes reviewed Mode of arrival: wheelchair Limitations: no limitations <Charla Francisco - Last Filed: 10/10/23 11:36> - General Source: patient, RN notes reviewed, old records reviewed Limitations: altered mental status <Rai Matos - Last Filed: 10/10/23 19:02> - General Chief complaint: Weakness Stated complaint: Drowsiness Time Seen by Provider: 10/10/23 11:36 - History of Present Illness Initial comments: Patient is an 78-year-old male presented ER with chief complaint of weakness. Patient states he was sent here by his doctor for a "checkup". Patient denies any chest pain, shortness of breath, fevers, chills, night sweats. (Charla Francisco) Patient is a pleasant 78-year-old male sent to the emergency department with concern for some weakness. Patient states he feels fine and has no complaints. 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 Patient states he does not feel confused. Patient denies any weakness however does admit to being a little fatigued. Patient states he is not here as a patient and just started to work. (Rai Matos) - Related Data Home Medications Medication Instructions Recorded Confirmed Atorvastatin [Lipitor] 10 mg PO HS 10/29/18 10/10/23 Magnesium Oxide 400 mg PO DAILY 07/07/21 10/10/23 Metoprolol Tartrate [Lopressor] 50 mg PO DAILY 07/07/21 10/10/23 L.acidoph,Paracasei, B.lactis 1 cap PO DAILY 11/11/22 10/10/23 [Probiotic] Sennosides [Senokot] 8.6 mg PO HS PRN 11/11/22 10/10/23 Calcium Carbonate [Calcium] 600 mg PO BID 01/10/23 10/10/23 Multivit-Mins/Iron/Folic/Lycop 1 tab PO DAILY 01/10/23 10/10/23 [Centrum Men's Tablet] Medihoney 100% Topical Paste 1 applic TOPICAL DAILY 06/19/23 10/10/23 oxyCODONE-APAP 7.5-325MG [Percocet 1 tab PO TID PRN 07/28/23 10/10/23 7.5-325 mg] Acetaminophen Tab [Tylenol] 325 mg PO TID PRN 10/10/23 10/10/23 Apixaban [Eliquis] 2.5 mg PO BID 10/10/23 10/10/23 polyethylene glycoL 3350 [Miralax] 17 gm PO Q2D PRN 10/10/23 10/10/23 Previous Rx's Medication Instructions Recorded Tamsulosin [Flomax] 0.4 mg PO BID #0 capsule 09/13/21 Gabapentin [Neurontin] 300 mg PO BID #6 cap 06/23/23 Allergies Allergy/AdvReac Type Severity Reaction Status Date / Time ciprofloxacin [From Cipro] Allergy Unknown Verified 10/10/23 16:13 doxazosin Allergy Unknown Verified 10/10/23 16:13 Review of Systems ROS Other: All systems not noted in ROS Statement are negative. <Charla Francisco - Last Filed: 10/10/23 11:36> ROS Other: All systems not noted in ROS Statement are negative. Constitutional: Denies: fever Eyes: Denies: eye pain ENT: Denies: ear pain Respiratory: Denies: cough, dyspnea Cardiovascular: Denies: chest pain Endocrine: Reports: fatigue Gastrointestinal: Denies: abdominal pain Genitourinary: Denies: urgency <Rai Matos - Last Filed: 10/10/23 19:02> ROS Statement: Those systems with pertinent positive or pertinent negative responses have been documented in the HPI. Past Medical History Past Medical History: CVA/TIA, Diabetes Mellitus, Deep Vein Thrombosis (DVT), Hypertension, Osteoarthritis (OA) Additional Past Medical History / Comment(s): Wound center patient, states has DVT x3 in rt leg, past hx of diabetes and HTN, no longer requires rx since we ight loss. states TIA in 2010 residual muscle weakness in rt leg, wears brace rt leg, uti . 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, pacemaker/ACID placed 2017 History of Any Multi-Drug Resistant Organisms: MRSA Date of last positivie culture/infection: 07/29/23 MDRO Source:: Sputum Past Surgical History: Back Surgery, Hernia Repair, Orthopedic Surgery, Pacemaker Additional Past Surgical History / Comment(s): cervical fusion, right hip replacement, cataract surgery, penile implant Past Anesthesia/Blood Transfusion Reactions: No Reported Reaction Type of Cardiac Device: Permanent Pacemaker, AICD, Unknown Device Placement Date:: May 2018 Past Psychological History: No Psychological Hx Reported Smoking Status: Never smoker Past Alcohol Use History: None Reported Past Drug Use History: None Reported - Past Family History Mother Family Medical History: Cancer Father Family Medical History: Cancer, Coronary Artery Disease (CAD) <Charla Francisco - Last Filed: 10/10/23 11:36> General Exam Limitations: no limitations <Charla Francisco - Last Filed: 10/10/23 11:36> Limitations: no limitations General appearance: alert, in no apparent distress Head exam: Present: normocephalic Eye exam: Present: normal appearance, PERRL, EOMI ENT exam: Present: normal oropharynx Neck exam: Present: normal inspection. Absent: tenderness, meningismus Respiratory exam: Present: normal lung sounds bilaterally Cardiovascular Exam: Present: regular rate, normal rhythm GI/Abdominal exam: Present: soft. Absent: tenderness Extremities exam: Present: normal inspection, other (Right leg brace). Absent: pedal edema, calf tenderness Neurological exam: Present: alert, oriented X3, CN II-XII intact, other (Right leg weakness which patient states is chronic and unchanged) Expanded Neurological exam: Present: protecting the airway Patient oriented to: Present: person, place, time Speech: Present: fluid speech Cranial nerves: EOM's Intact: Normal Motor strength exam: RUE: 5, LUE: 5, RLE: 2/1, LLE: 5 Eye Response: (4) open spontaneously Motor Response: (6) obeys commands Verbal Response: (5) oriented Psychiatric exam: Present: normal affect, normal mood Skin exam: Present: normal color <Rai Matos - Last Filed: 10/10/23 19:02> - General Exam Comments Initial Comments: Visual Physical Exam Vital signs reviewed General: Weak appearing Head: Normocephalic, atraumatic Eyes: PERRLA, EOMI ENT: Airway patent Chest: Nonlabored breathing Skin: No visual rash, normal skin tone Neuro: Alert and oriented 3 Musculoskeletal: No gross abnormalities (Charla Francisco) Course Vital Signs 10/10/23 10/10/23 10:51 16:56 Temperature 97.8 F Pulse Rate 80 87 Respiratory 18 18 Rate Blood Pressure 99/54 143/78 O2 Sat by Pulse 96 94 L Oximetry EKG Findings - EKG Results: EKG: interpreted by ERMD (Right axis. Right bundle branch block. Inferior T wave inversion.), sinus rhythm <Rai Matos - Last Filed: 10/10/23 19:02> Medical Decision Making <Charla Francisco - Last Filed: 10/10/23 11:36> - Lab Data Result diagrams: 10/10/23 13:45 10/10/23 13:45 <Rai Matos - Last Filed: 10/10/23 19:02> - Medical Decision Making I performed the quick note portion of the exam. Electronically signed by Charla Francisco PA-C (Charla Francisco) Was pt. sent in by a medical professional or institution (MIRIAM Crow, CUP SETTER LOCKSTITCH, urgent care, hospital, or [facility]...) When possible be specific @ -Patient was sent in by [facility] Did you speak to anyone other than the patient for history (EMS, parent, family, police, friend...)? What history was obtained from this source @ -No Did you review nursing and triage notes (agree or disagree)? Why? @ -I reviewed and agree with nursing and triage notes Were old charts reviewed (outside hosp., previous admission, EMS record, old EKG, old radiological studies, urgent care reports/EKG's, [facility] records)? Report findings @ -No old charts were reviewed Differential Diagnosis (chest pain, altered mental status, abdominal pain women, abdominal pain men, vaginal bleeding, weakness, fever, dyspnea, syncope, headache, dizziness, GI bleed, back pain, seizure, CVA, palpatations, mental health, musculoskeletal)? @ -Differential Weakness: Hypoglycemia, shock, sepsis, hyponatremia, anemia, infection, [place], ETOH, adverse medicine reaction, overdose, stroke, this is not meant to be an all-inclusive list. EKG interpreted by me (3pts min.). @ -As above X-rays interpreted by me (1pt min.). @ -Chest x-ray shows no acute process atelectasis. CT interpreted by me (1pt min.). @ -None done U/S interpreted by me (1pt. min.). @ -None done What testing was considered but not performed or refused? (CT, X-rays, U/S, labs)? Why? @ -None What meds were considered but not given or refused? Why? @ -None Did you discuss the management of the patient with other professionals (professionals i.e. , PA, CUP SETTER LOCKSTITCH, lab, RT, psych nurse, social media marketing analyst, recyclable materials sorter, teacher, media liaison officer, patient case manager)? Give summary @ -Case was discussed with Dr. Landeros, who will admit covering for [facility] case Was smoking cessation discussed for >3mins.? @ -No Was critical care preformed (if so, how long)? @ -No Were there social determinants of health that impacted care today? How? (Homelessness, low income, unemployed, alcoholism, drug addiction, transport ation, low edu. Level, literacy, decrease access to med. care, intermediate, rehab)? @ -No Was there de-escalation of care discussed even if they declined (Discuss DNR or withdrawal of care, Hospice)? DNR status @ -No What co-morbidities impacted this encounter? (DM, HTN, Smoking, COPD, CAD, Cancer, CVA, ARF, Chemo, Hep., AIDS, mental health diagnosis, sleep apnea, morbid obesity)? @ -None Was patient admitted / discharged? Hospital course, mention meds given and route, prescriptions, significant lab abnormalities, going to OR and other pertinent info. @ -Patient reevaluated and resting comfortably in bed. Patient states he does live on his own with a roommate. Patient does have evidence of urinary tract infection and dehydration. Patient will be admitted for observation Undiagnosed new problem with uncertain prognosis? @ -No Drug Therapy requiring intensive monitoring for toxicity (Heparin, Nitro, In sulin, Cardizem)? @ -No Were any procedures done? @ -No Diagnosis/symptom? @ -Urinary tract infection, dehydration Acute, or Chronic, or Acute on Chronic? @ -Acute, acute Uncomplicated (without systemic symptoms) or Complicated (systemic symptoms)? @ -default Side effects of treatment? @ -No Exacerbation, Progression, or Severe Exacerbation? @ -No Poses a threat to life or bodily function? How? (Chest pain, [place], [place], pneumonia, PE, COPD, DKA, ARF, appy, cholecystitis, CVA, Diverticulitis, Homicidal, Suicidal, threat to staff... and all critical care pts) @ -No (Rai Matos) - Lab Data Lab Results 10/10/23 10/10/23 10/10/23 Range/Units 11:06 13:45 13:45 WBC 13.7 H (3.8-10.6) k/uL RBC 4.50 (4.30-5.90) m/uL Hgb 11.8 L (13.0-17.5) gm/dL Hct 36.4 L (39.0-53.0) % MCV 80.9 (80.0-100.0) fL MCH 26.3 (25.0-35.0) pg MCHC 32.4 (31.0-37.0) g/dL RDW 16.1 H (11.5-15.5) % Plt Count 317 (150-450) k/uL MPV 9.9 Neutrophils % 72 % Lymphocytes % 9 % Monocytes % 14 % Eosinophils % 2 % Basophils % 0 % Neutrophils # 9.9 H (1.3-7.7) k/uL Lymphocytes # 1.2 (1.0-4.8) k/uL Monocytes # 1.9 H (0-1.0) k/uL Eosinophils # 0.2 (0-0.7) k/uL Basophils # 0.1 (0-0.2) k/uL Hypochromasia Slight Anisocytosis Slight Sodium 137 (137-145) mmol/L Potassium 5.2 H (3.5-5.1) mmol/L Chloride 95 L (98-107) mmol/L Carbon Dioxide 27 (22-30) mmol/L Anion Gap 15 mmol/L BUN 40 H (9-20) mg/dL Creatinine 2.13 H (0.66-1.25) mg/dL Est GFR (CKD-EPI)AfAm 33 (>60 ml/min/1.73 sqM) Est GFR (CKD-EPI)NonAf 28 (>60 ml/min/1.73 sqM) Glucose 154 H (74-99) mg/dL Calcium 9.7 (8.4-10.2) mg/dL Phosphorus 4.5 (2.5-4.5) mg/dL Magnesium 2.3 (1.6-2.3) mg/dL Total Bilirubin 0.6 (0.2-1.3) mg/dL AST 24 (17-59) U/L ALT 16 (4-49) U/L Alkaline Phosphatase 64 (38-126) U/L Troponin I (0.000-0.034) ng/mL Total Protein 8.8 H (6.3-8.2) g/dL Albumin 4.1 (3.5-5.0) g/dL Urine Color Urine Appearance (Clear) Urine pH (5.0-8.0) Ur Specific [place] (1.001-1.035) Urine Protein (Negative) Urine Glucose (UA) (Negative) Urine Ketones (Negative) Urine Blood (Negative) Urine Nitrite (Negative) Urine Bilirubin (Negative) Urine Urobilinogen (<2.0) mg/dL Ur Leukocyte Esterase (Negative) Urine RBC (0-5) /hpf Urine WBC (0-5) /hpf Urine WBC Clumps (None) /hpf Ur Squamous Epith Cells (0-4) /hpf Urine Bacteria (None) /hpf Hyaline Casts (0-2) /lpf Urine Mucus (None) /hpf Influenza Type A (PCR) Not Detected (Not Detectd) Influenza Type B (PCR) Not Detected (Not Detectd) RSV (PCR) Not Detected (Not Detectd) SARS-CoV-2 (PCR) Not Detected (Not Detectd) 10/10/23 10/10/23 Range/Units 13:45 15:44 WBC (3.8-10.6) k/uL RBC (4.30-5.90) m/uL Hgb (13.0-17.5) gm/dL Hct (39.0-53.0) % MCV (80.0-100.0) fL MCH (25.0-35.0) pg MCHC (31.0-37.0) g/dL RDW (11.5-15.5) % Plt Count (150-450) k/uL MPV Neutrophils % % Lymphocytes % % Monocytes % % Eosinophils % % Basophils % % Neutrophils # (1.3-7.7) k/uL Lymphocytes # (1.0-4.8) k/uL Monocytes # (0-1.0) k/uL Eosinophils # (0-0.7) k/uL Basophils # (0-0.2) k/uL Hypochromasia Anisocytosis Sodium (137-145) mmol/L Potassium (3.5-5.1) mmol/L Chloride (98-107) mmol/L Carbon Dioxide (22-30) mmol/L Anion Gap mmol/L BUN (9-20) mg/dL Creatinine (0.66-1.25) mg/dL Est GFR (CKD-EPI)AfAm (>60 ml/min/1.73 sqM) Est GFR (CKD-EPI)NonAf (>60 ml/min/1.73 sqM) Glucose (74-99) mg/dL Calcium (8.4-10.2) mg/dL Phosphorus (2.5-4.5) mg/dL Magnesium (1.6-2.3) mg/dL Total Bilirubin (0.2-1.3) mg/dL AST (17-59) U/L ALT (4-49) U/L Alkaline Phosphatase (38-126) U/L Troponin I <0.012 (0.000-0.034) ng/mL Total Protein (6.3-8.2) g/dL Albumin (3.5-5.0) g/dL Urine Color Yellow Urine Appearance Cloudy (Clear) Urine pH 8.0 (5.0-8.0) Ur Specific [place] 1.013 (1.001-1.035) Urine Protein 1+ H (Negative) Urine Glucose (UA) Negative (Negative) Urine Ketones Negative (Negative) Urine Blood Trace H (Negative) Urine Nitrite Negative (Negative) Urine Bilirubin Negative (Negative) Urine Urobilinogen <2.0 (<2.0) mg/dL Ur Leukocyte Esterase Large H (Negative) Urine RBC 6 H (0-5) /hpf Urine WBC >182 H (0-5) /hpf Urine WBC Clumps Few H (None) /hpf Ur Squamous Epith Cells <1 (0-4) /hpf Urine Bacteria Many H (None) /hpf Hyaline Casts 5 H (0-2) /lpf Urine Mucus Rare H (None) /hpf Influenza Type A (PCR) (Not Detectd) Influenza Type B (PCR) (Not Detectd) RSV (PCR) (Not Detectd) SARS-CoV-2 (PCR) (Not Detectd) Disposition <Charla Francisco - Last Filed: 10/10/23 11:36> Is patient prescribed a controlled substance at d/c from ED?: No Time of Disposition: 19:02 <Matos,Rai - Last Filed: 10/10/23 19:02> Clinical Impression: UTI (urinary tract infection), Dehydration Disposition: ADMITTED IP TO THIS HOSP Referrals: Zeeshan William MD [Primary Care Provider] - 1-2 days
[2023-10-10] MEDS ORDERED: SODIUM CHLORIDE 0.9% 500 ML 500 ML IV STA (12:24)
[2023-10-10 13:54] LABS: Anisocytosis Slight; Basophils # (A) 0.1 k/uL (0-0.2); Basophils % (A) 0 %; Eosinophils # (A) 0.2 k/uL (0-0.7); Eosinophils % (A) 2 %; HCT 36.4 % (39.0-53.0); HGB 11.8 gm/dL (13.0-17.5); Hypochromasia Slight; Lymphocytes # (A) 1.2 k/uL (1.0-4.8); Lymphocytes % (A) 9 %; MCH 26.3 pg (25.0-35.0); MCHC 32.4 g/dL (31.0-37.0); MCV 80.9 fL (80.0-100.0); Mean Platelet Volume 9.9; Monocytes # (A) 1.9 k/uL (0-1.0); Monocytes % (A) 14 %; Neutrophils # (A) 9.9 k/uL (1.3-7.7); Neutrophils % (A) 72 %; Platelet Count 317 k/uL (150-450); RDW 16.1 % (11.5-15.5); WBC 13.7 k/uL (3.8-10.6)
[2023-10-10 14:06] LABS: ALT 16 U/L (4-49); AST 24 U/L (17-59); African American GFR (CKD) 33 (>60 ml/min/1.73 sqM); Albumin 4.1 g/dL (3.5-5.0); Alkaline Phosphatase 64 U/L (38-126); Anion Gap 15 mmol/L; Blood Urea Nitrogen 40 mg/dL (9-20); Calcium 9.7 mg/dL (8.4-10.2); Carbon Dioxide 27 mmol/L (22-30); Chloride 95 mmol/L (98-107); Glucose 154 mg/dL (74-99); Magnesium 2.3 mg/dL (1.6-2.3); Non-African American GFR(CKD) 28 (>60 ml/min/1.73 sqM); Phosphorus 4.5 mg/dL (2.5-4.5); Potassium 5.2 mmol/L (3.5-5.1); Sodium 137 mmol/L (137-145); Total Bilirubin 0.6 mg/dL (0.2-1.3); Total Protein 8.8 g/dL (6.3-8.2)
[2023-10-10] MEDS ORDERED: SODIUM CHLORIDE 0.9% 1,000 ML IV STA (15:00)
[2023-10-10 16:30] LABS: Appearance,Urine Cloudy (Clear); Bacteria,Urine Many /hpf; Bilirubin,Urine Negative (Negative); Blood,Urine Trace (Negative); Color,Urine Yellow; Glucose,Urine (UA) Negative (Negative); Hyaline Casts,Urine 5 /lpf (0-2); Ketones,Urine Negative (Negative); Leukocyte Esterase,Urine Large (Negative); Mucus,Urine Rare /hpf; Nitrite,Urine Negative (Negative); Protein,Urine 1+ (Negative); RBC,Urine 6 /hpf (0-5); Specific Gravity,Urine 1.013 (1.001-1.035); Squamous Epithelial Cell,Urine <1 /hpf (0-4); Urobilinogen,Urine <2.0 mg/dL (<2.0); WBC,Urine >182 /hpf (0-5)
--- NOTE | 2023-10-10 16:53 | XR ---
EXAMINATION TYPE: XR chest 2V DATE OF EXAM: 10/10/2023 COMPARISON: 07/30/2023 INDICATION: Weakness altered mental status TECHNIQUE: Frontal and lateral views of the chest are obtained. FINDINGS: The heart size is normal. The pulmonary vasculature is normal. Mild right lower lobe infiltrate is present. Correlate for mild atelectasis. Some minimal platelike a telectasis at the left costophrenic angle. Pacemaker overlies left chest. Air within loops of bowel a re of the right diaphragm.. IMPRESSION: 1. Mild right basilar atelectasis
[2023-10-10] MEDS ORDERED: ACETAMINOPHEN TAB 325 MG TAB PO PRN (19:02)
[2023-10-10] MEDS ORDERED: NALOXONE 0.4 MG/ML 1 ML VIAL IV PRN (19:02)
[2023-10-10] MEDS: SODIUM CHLORIDE 0.9% 1,000 ML IV SCH (20:06)
[2023-10-10] MEDS: FAMOTIDINE 20 MG TAB PO SCH (20:15)
[2023-10-11] MEDS: APIXABAN 2.5 MG TABLET PO SCH ×3 (02:33→21:24)
--- NOTE | 2023-10-11 04:30 | P.HPIM ---
History of Present Illness H&P Date: 10/10/23 Chief Complaint: confusion 78 year old male with DM , h/o DVT on eliquis patient fails to provide any meaningful history when asked about why he is here, he replies by saying, "you should know, your program sent me here" he is referring to [facility]. he denies any fever, chills, chest pain , trouble breathing, nausea , vomiting, abd pain ,changes in urinary or bowel habits. denies any bleeding, or new focal neuro deficits. he does feel called, and asks nicely to go to sleep as he feels tired. he has no complaints and Hopes to go back home. he reports that his doc sent him here for check up. in the ED, report of generalized fatigue, and weakness. patient denies any falls, or head injury , denies any syncope , he claims to be wheel chair bound review of systems Pertinent positives as noted in HPI. All other systems were reviewed and are negative on exam Constitutional: No acute distress, conversant, pleasant Eyes: Anicteric sclerae, moist conjunctiva, Pupils equal round reactive to light ENMT: NC/AT Oropharynx clear, no erythema, or exudates Neck: Supple, no masses, or JVD No carotid bruits No thyromegaly Lungs: Clear to auscultation Clear to percussion Normal respiratory effort, no accessory muscle use Cardiovascular: Heart regular in rate and rhythm, No murmurs, gallops, or rubs No peripheral edema Abdominal: Soft Nontender, no guarding, rebound or rigidity Abdomen moving with respiration Normoactive bowel sounds No hepatomegaly, No splenomegaly No palpable mass No abdominal wall hernia noted Extremities: No digital cyanosis No clubbing Pedal pulses intact and symmetrical Radial pulses intact and symmetrical No calf tenderness Psychiatric: Alert and oriented to person, place only Neuro Muscles Strength 4/5 in bilateral upper extremity, refused to cooperate with lower extremity exam, but seems to have 1/5 right lower, and 2/5 left lower extremity but this is not very reliable as he did not cooperate with lower extrmiety exam , he claims that sensation is intact to to light touch grossly . he reports that his lower extremity weakness is chronic due to horse injury when he was a kid Lymphatics: no palpable cervical or supraclavicular lymph nodes Past Medical History Past Medical History: CVA/TIA, Diabetes Mellitus, Deep Vein Thrombosis (DVT), Hypertension, Osteoarthritis (OA) Additional Past Medical History / Comment(s): Wound center patient, states has DVT x3 in rt leg, past hx of diabetes and HTN, no longer requires rx since weight loss. states TIA in 2010 residual muscle weakness in rt leg, wears brace rt leg, uti . 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, pacemaker/ACID placed 2017 History of Any Multi-Drug Resistant Organisms: MRSA Date of last positivie culture/infection: 07/29/23 MDRO Source:: Sputum Past Surgical History: Back Surgery, Hernia Repair, Orthopedic Surgery, Pacemaker Additional Past Surgical History / Comment(s): cervical fusion, right hip replacement, cataract surgery, penile implant Past Anesthesia/Blood Transfusion Reactions: No Reported Reaction Type of Cardiac Device: Permanent Pacemaker, AICD, Unknown Device Placement Date:: May 2018 Past Psychological History: No Psychological Hx Reported Smoking Status: Never smoker Past Alcohol Use History: None Reported Past Drug Use History: None Reported - Past Family History Mother Family Medical History: Cancer Father Family Medical History: Cancer, Coronary Artery Disease (CAD) Medications and Allergies Home Medications Medication Instructions Recorded Confirmed Type Atorvastatin [Lipitor] 10 mg PO HS 10/29/18 10/10/23 History Magnesium Oxide 400 mg PO DAILY 07/07/21 10/10/23 History Metoprolol Tartrate [Lopressor] 50 mg PO DAILY 07/07/21 10/10/23 History Tamsulosin [Flomax] 0.4 mg PO BID #0 capsule 09/13/21 10/10/23 Rx L.acidoph,Paracasei, B.lactis 1 cap PO DAILY 11/11/22 10/10/23 History [Probiotic] Sennosides [Senokot] 8.6 mg PO HS PRN 11/11/22 10/10/23 History Calcium Carbonate [Calcium] 600 mg PO BID 01/10/23 10/10/23 History Multivit-Mins/Iron/Folic/Lycop 1 tab PO DAILY 01/10/23 10/10/23 History [Centrum Men's Tablet] Medihoney 100% Topical Paste 1 applic TOPICAL DAILY 06/19/23 10/10/23 History Gabapentin [Neurontin] 300 mg PO BID #6 cap 06/23/23 10/10/23 Rx oxyCODONE-APAP 7.5-325MG [Percocet 1 tab PO TID PRN 07/28/23 10/10/23 History 7.5-325 mg] Acetaminophen Tab [Tylenol] 325 mg PO TID PRN 10/10/23 10/10/23 History Apixaban [Eliquis] 2.5 mg PO BID 10/10/23 10/10/23 History polyethylene glycoL 3350 [Miralax] 17 gm PO Q2D PRN 10/10/23 10/10/23 History Allergies Allergy/AdvReac Type Severity Reaction Status Date / Time ciprofloxacin [From Cipro] Allergy Unknown Verified 10/10/23 16:13 doxazosin Allergy Unknown Verified 10/10/23 16:13 Physical Exam Vitals: Vital Signs Temp Pulse Resp BP Pulse Ox 10/10/23 16:56 87 18 143/78 94 L 10/10/23 10:51 97.8 F 80 18 99/54 96 Intake and Output 10/10/23 10/10/23 10/11/23 14:59 22:59 06:59 Other: Weight 56.245 kg Results CBC & Chem 7: 10/10/23 13:45 10/10/23 13:45 Labs: Abnormal Lab Results - Last 24 Hours (Table) 10/10/23 10/10/23 10/10/23 Range/Units 13:45 13:45 15:44 WBC 13.7 H (3.8-10.6) k/uL Hgb 11.8 L (13.0-17.5) gm/dL Hct 36.4 L (39.0-53.0) % RDW 16.1 H (11.5-15.5) % Neutrophils # 9.9 H (1.3-7.7) k/uL Monocytes # 1.9 H (0-1.0) k/uL Potassium 5.2 H (3.5-5.1) mmol/L Chloride 95 L (98-107) mmol/L BUN 40 H (9-20) mg/dL Creatinine 2.13 H (0.66-1.25) mg/dL Glucose 154 H (74-99) mg/dL Total Protein 8.8 H (6.3-8.2) g/dL Urine Protein 1+ H (Negative) Urine Blood Trace H (Negative) Ur Leukocyte Esterase Large H (Negative) Urine RBC 6 H (0-5) /hpf Urine WBC >182 H (0-5) /hpf Urine WBC Clumps Few H (None) /hpf Urine Bacteria Many H (None) /hpf Hyaline Casts 5 H (0-2) /lpf Urine Mucus Rare H (None) /hpf Assessment and Plan Assessment: 78 year old male with DM , h/o DVT ON eliquis , was sent in here for evaluation of confusion and weakness, I discussed the case with ED doc and I accepted the admission for UTI, LACHELLE on CKD and confusion with anticipated length of stay < midnight s acute metabolic encephalopathy secondary to underlying UTI UTI LACHELLE non oliguric on CKD follow up cultures UA positive continue with rocephine 1 gm IVBP daily avoid nephrotoxic meds gentle IVF hydration with normal saline 75 cc per hour , s/p 1 L bolus tylenol for fever PRN 650 mg q6hr fall precautions WBC 13.7 Hgb 11.8 Na 137 K 5.2 BUN 40 Cr 2.13 hypertension controlled continue with metoprolol home medicine h/o dvt continue with eliquis 2.5 mg po bid BPH continue with flomax check renal US due to LACHELLE on CKD rule out hydronephrosis full code DVT PPX on eliquis for history of DVT GI PPX on famotidine
[2023-10-11] MEDS ORDERED: DEXTROSE 50% SYRINGE 50 ML IVP PRN ×2 (04:31)
[2023-10-11 06:54] LABS: Glucose,Whole Blood 93 mg/dL (70-110)
[2023-10-11] MEDS: INSULIN ASPART (NovoLOG) 100 UNIT/ML VIAL SQ SCH ×4 (06:58→21:24)
[2023-10-11 08:14] LABS: ALT 13 U/L (4-49); AST 29 U/L (17-59); African American GFR (CKD) 41 (>60 ml/min/1.73 sqM); Albumin 3.4 g/dL (3.5-5.0); Albumin/Globulin Ratio 0.9; Alkaline Phosphatase 60 U/L (38-126); Anion Gap 11 mmol/L; Blood Urea Nitrogen 33 mg/dL (9-20); Calcium 8.5 mg/dL (8.4-10.2); Carbon Dioxide 26 mmol/L (22-30); Chloride 103 mmol/L (98-107); Glucose 93 mg/dL (74-99); Non-African American GFR(CKD) 35 (>60 ml/min/1.73 sqM); Potassium 4.4 mmol/L (3.5-5.1); Sodium 140 mmol/L (137-145); Total Bilirubin 0.6 mg/dL (0.2-1.3); Total Protein 7.4 g/dL (6.3-8.2)
[2023-10-11 08:16] LABS: Anisocytosis Slight; Basophils % (A) 0 %; Eosinophils # (A) 0.1 k/uL (0-0.7); Eosinophils % (A) 1 %; HCT 34.2 % (39.0-53.0); Hypochromasia Slight; Lymphocytes % (A) 8 %; MCH 26.1 pg (25.0-35.0); MCHC 32.2 g/dL (31.0-37.0); Mean Platelet Volume 9.9; Monocytes # (A) 1.9 k/uL (0-1.0); Monocytes % (A) 16 %; Neutrophils # (A) 8.3 k/uL (1.3-7.7); Neutrophils % (A) 71 %; Platelet Count 272 k/uL (150-450); RBC 4.22 m/uL (4.30-5.90); RDW 16.1 % (11.5-15.5); WBC 11.8 k/uL (3.8-10.6)
[2023-10-11] MEDS: TAMSULOSIN 0.4 MG CAP.ER.24H PO SCH ×2 (10:02→21:25)
[2023-10-11] MEDS: METOPROLOL TARTRATE 50 MG TAB PO SCH (10:02)
[2023-10-11] MEDS: GABAPENTIN 300 MG CAP PO SCH ×2 (10:02→21:24)
[2023-10-11] MEDS: FAMOTIDINE 20 MG TAB PO SCH (10:02)
[2023-10-11] MEDS: SODIUM CHLORIDE 0.9% 1,000 ML IV SCH (10:03)
[2023-10-11] MEDS: oxyCODONE-APAP 7.5-325MG 1 EACH TAB PO PRN ×2 (12:06→21:25)
[2023-10-11 12:15] LABS: Glucose,Whole Blood 154 mg/dL (70-110)
--- NOTE | 2023-10-11 12:33 | US ---
EXAMINATION TYPE: US renals and bladder DATE OF EXAM: 10/11/2023 COMPARISON: 06/08/23 CLINICAL INDICATION: Male, 78 years old with history of LACHELLE; LACHELLE EXAM MEASUREMENTS: Right Kidney: 9.9x4.4x5.0 cm Left Kidney: 10.5x5.5x4.6 cm Right Kidney: anechoic area again seen: 1.6x1.6x1.5cm Left Kidney: No hydronephrosis or masses seen Bladder: irregular posterior wall with 3.0x4.1x1.5cm area of layering debris. Consider additional wor kup for neoplasm. Bilateral Jets seen: Yes There is no evidence for hydronephrosis at this point in time. No nephrolithiasis is seen. Bilatera l ureteral jets are seen. exam limited by bowel gas and limited patient mobility IMPRESSION: 1. Some degree may be within the posterior urinary bladder. The posterior urinary bladder wall appear s somewhat irregular. Consider additional workup. 2. Superior pole right renal cyst
[2023-10-11 14:19] VITALS: BMI 15.0
--- NOTE | 2023-10-11 16:55 | P.PN ---
Subjective Progress Note Date: 10/11/23 Hospital course: Patient is a very pleasant 78-year-old male with a past medical history of CAD status post AICD placement, hypertension, hyperlipidemia, DVT on anticoagulation with Eliquis, stage III decubitus sacral ulcer, CVA/TIA, stage IIIB chronic kidney disease and BPH.. Patient presented to the emergency department on 10/10/23 secondary to reports of confusion and generalized weakness. He underwent full evaluation in the emergency department. Vital signs upon arrival show blood pressure 99/54, heart rate 80, respiratory rate 18, temp 97.8F, SpO2 of 96% on room aiir. EKG completed showing normal sinus rhythm at 80 bpm with a right bundle branch block. Chest x-ray showing mild right lower lobe atelectasis. Labs completed and reviewed. CBC showing leukocytosis with WBC count of 13.7 and normocytic anemia with hemoglobin of 11.8. BMP showing hyperkalemia with potassium 5.2, hyperchloremia with chloride of 95, and acute kidney injury with BUN of 40, creatinine 2.13, GFR of 28. Liver profile was unremarkable. Troponin was negative at less than 0.012. Urinalysis was positive for infection. Patient was started on IV antibiotics with Rocephin and admitted under the services with consultation to PT/OT. Physical exam: Patient seen and fully evaluated at bedside this morning. Patient reports pain in the lower back in which he takes [place] for at home. Patient is currently alert to person, place, time, and situation at this time. Other than acute and chronic lower back pain he denies having any complaints or needs at this time. . General: Nontoxic, no distress and appears stated age. Derm: Skin warm and dry, normal coloration for ethnicity. Head: Atraumatic, normocephalic and symmetric. Eyes: EOMs intact, no lid lag, and anicteric sclera Mouth: no lip lesions, mucus membranes moist Cardiovascular: regular rate and rhythm with normal S1S2, no murmur, positive posterior tibial pulses bilaterally, and cap refill < 2 seconds. Lungs: Respirations even, regular, and unlabored on room air. Lungs CTA bilaterally, no rhonchi, no rales, no wheezing, and no accessory muscle usage. Abdominal: soft, nontender to palpation, no guarding, no appreciable organomegaly Ext: ROM intact. No gross muscle atrophy, no edema, no contractures Neuro: Speech clear, face symmetrical and CN II-XII grossly intact with no noted focal neuro deficits Psych: Alert and oriented to person, place, time, and situation. Appropriate and pleasant affect. Assessment and Plan of Care: Acute metabolic encephalopathy secondary to underlying UTI UTI LACHELLE on stage III chronic kidney disease, improved Hyperkalemia Right renal cyst, recommend outpatient follow-up with nephrology for chronic kidney disease and further evaluation/monitoring of renal cyst. Continue IV antibiotics with Rocephin 2 g IVPB daily Follow up on urine cultures Follow up on blood culture Continue to monitor renal function closely with repeat morning BMP. Continue with gentle IV fluid hydration with 0.9% normal saline at 75 mL per hour for an additional 24 hours. Order placed for bladder scan to monitor for post void residuals. Order placed for neuro checks every 4 hours secondary to initial confusion and fall precautions to remain in place. Order placed for telemetry monitoring secondary to hyperkalemia Ultrasound renals and bladder completed in radiology report reviewed stating some debris may be within the posterior urinary bladder with reports of posterior urinary bladder wall appearing to be somewhat irregular and superior pole right renal cyst. Hypertension Controlled on current medication regimen. Patient to continue with metoprolol 50 mg daily. Hyperlipidemia Patient to continue with atorvastatin 10 mg nightly. History of DVT Patient to continue anticoagulation with Eliquis 2.5 mg twice daily. BPH continue with flomax 0.4 mg twice daily. Data and imaging reviewed: Ultrasound renals and bladder completed in radiology report reviewed stating so me debris may be within the posterior urinary bladder with reports of posterior urinary bladder wall appearing to be somewhat irregular and superior pole right renal cyst. Morning labs repeated showing improvement of leukocytosis with WBC count decreasing to 11.8 and stable normocytic anemia with hemoglobin of 11. BMP showing resolution of hyperkalemia with potassium of 4.4 and improvement in re nal function with BUN of 33, creatinine 1.79, GFR of 35. CODE STATUS: Full code DVT prophylaxis: Eliquis Anticipated discharge date: 24-[address]: Home Patient was seen independently by Nurse Pracitioner. This document was prepared using [employer] (formerly [employer]) dictation software. Please allow for errors in obstetric assistant, while rare they do occur. Benny Phillips NP rendered care for this patient independently, reviewed the findings and plan as documented in the note above. I did not physically speak with or examine the patient on this date. Objective - Vital Signs Vital signs: Vital Signs Temp 98.3 F 10/11/23 07:00 Pulse 85 10/11/23 07:00 Resp 18 10/11/23 07:00 BP 176/87 10/11/23 07:00 Pulse Ox 94 L 10/11/23 07:00 FiO2 Intake & Output 10/10/23 10/11/23 10/11/23 18:59 06:59 18:59 Intake Total 120 Balance 120 Weight 56.245 kg 56.245 kg Intake: Oral 120 Other: Voiding Method Diaper - Labs CBC & Chem 7: 10/11/23 07:12 10/11/23 07:07 Labs: Abnormal Lab Results - Last 24 Hours (Table) 10/10/23 10/10/23 10/10/23 Range/Units 13:45 13:45 15:44 WBC 13.7 H (3.8-10.6) k/uL RBC (4.30-5.90) m/uL Hgb 11.8 L (13.0-17.5) gm/dL Hct 36.4 L (39.0-53.0) % RDW 16.1 H (11.5-15.5) % Neutrophils # 9.9 H (1.3-7.7) k/uL Monocytes # 1.9 H (0-1.0) k/uL Potassium 5.2 H (3.5-5.1) mmol/L Chloride 95 L (98-107) mmol/L BUN 40 H (9-20) mg/dL Creatinine 2.13 H (0.66-1.25) mg/dL Glucose 154 H (74-99) mg/dL Total Protein 8.8 H (6.3-8.2) g/dL Albumin (3.5-5.0) g/dL Urine Protein 1+ H (Negative) Urine Blood Trace H (Negative) Ur Leukocyte Esterase Large H (Negative) Urine RBC 6 H (0-5) /hpf Urine WBC >182 H (0-5) /hpf Urine WBC Clumps Few H (None) /hpf Urine Bacteria Many H (None) /hpf Hyaline Casts 5 H (0-2) /lpf Urine Mucus Rare H (None) /hpf 10/11/23 10/11/23 Range/Units 07:07 07:12 WBC 11.8 H (3.8-10.6) k/uL RBC 4.22 L (4.30-5.90) m/uL Hgb 11.0 L (13.0-17.5) gm/dL Hct 34.2 L (39.0-53.0) % RDW 16.1 H (11.5-15.5) % Neutrophils # 8.3 H (1.3-7.7) k/uL Monocytes # 1.9 H (0-1.0) k/uL Potassium (3.5-5.1) mmol/L Chloride (98-107) mmol/L BUN 33 H (9-20) mg/dL Creatinine 1.79 H (0.66-1.25) mg/dL Glucose (74-99) mg/dL Total Protein (6.3-8.2) g/dL Albumin 3.4 L (3.5-5.0) g/dL Urine Protein (Negative) Urine Blood (Negative) Ur Leukocyte Esterase (Negative) Urine RBC (0-5) /hpf Urine WBC (0-5) /hpf Urine WBC Clumps (None) /hpf Urine Bacteria (None) /hpf Hyaline Casts (0-2) /lpf Urine Mucus (None) /hpf
[2023-10-11 18:05] LABS: Glucose,Whole Blood 133 mg/dL (70-110)
[2023-10-11 20:29] LABS: Glucose,Whole Blood 228 mg/dL (70-110)
[2023-10-11] MEDS: ATORVASTATIN 10 MG TAB PO SCH (21:24)
[2023-10-12 06:12] LABS: Glucose,Whole Blood 97 mg/dL (70-110)
[2023-10-12] MEDS: SODIUM CHLORIDE 0.9% 1,000 ML IV SCH ×2 (06:52→16:04)
[2023-10-12] MEDS: INSULIN ASPART (NovoLOG) 100 UNIT/ML VIAL SQ SCH ×4 (07:55→21:52)
[2023-10-12] MEDS: TAMSULOSIN 0.4 MG CAP.ER.24H PO SCH ×2 (08:09→20:11)
[2023-10-12] MEDS: METOPROLOL TARTRATE 50 MG TAB PO SCH (08:09)
[2023-10-12] MEDS: FAMOTIDINE 20 MG TAB PO SCH (08:10)
[2023-10-12] MEDS: APIXABAN 2.5 MG TABLET PO SCH ×2 (08:10→20:11)
[2023-10-12] MEDS: GABAPENTIN 300 MG CAP PO SCH ×2 (08:10→20:11)
[2023-10-12] MEDS: oxyCODONE-APAP 7.5-325MG 1 EACH TAB PO PRN ×2 (09:31→20:11)
[2023-10-12 10:11] LABS: HCT 34.4 % (39.6-50.0); HGB 10.5 g/dL (13.0-17.0); MCH 24.7 pg (27.0-32.0); MCHC 30.5 g/dL (32.0-37.0); MCV 80.9 FL (80.0-97.0); Mean Platelet Volume 11.3 FL (9.5-12.2); NRBC Per 100 WBC 0 X 10*3/uL (0.00-0.01); Platelet Count 269 X 10*3/uL (140-440); RBC 4.25 X 10*6/uL (4.40-5.60); RDW 16.7 % (11.5-14.5); WBC 9.68 X 10*3/uL (4.50-10.00)
[2023-10-12 10:17] LABS: ALT 9 U/L (10-49); AST 23 U/L (14-35); Albumin 3.2 g/dL (3.8-4.9); Albumin/Globulin Ratio 0.82 Ratio (1.60-3.17); Alkaline Phosphatase 45 U/L (41-126); BUN/Creat Ratio 16.47 Ratio (12.00-20.00); Blood Urea Nitrogen 31.3 mg/dL (9.0-27.0); Calcium 8.3 mg/dL (8.7-10.3); Carbon Dioxide 24.2 mmol/L (21.6-31.8); Chloride 104 mmol/L (96-109); Globulin 3.9 g/dL (1.6-3.3); Glucose 96 mg/dL (70-110); Potassium 4.5 mmol/L (3.5-5.5); Sodium 139 mmol/L (135-145); Total Bilirubin 0.2 mg/dL (0.3-1.2); Total Protein 7.1 g/dL (6.2-8.2)
--- NOTE | 2023-10-12 10:17 | P.GSCN ---
History of Present Illness Consult date: 10/12/23 History of present illness: Asked to see this 78-year-old gentleman for urinary tract infection, abnormal ultrasound of the bladder, possible urine retention. This patient is interviewed at the bedside and I question the value of the history is his memory is sketchy at best. Patient barely technologist is why he came into the hospital for weakness. He does know where he is but cannot really explain where he lives. He states that he has perhaps seen a urologist in the past. He states that the home where he lives in asked him to wear a catheter. He states that he has had nocturnal incontinence for greater than a month. He is uncertain as to whether he is been placed on any medication for urination. His urinalysis looks infected. He had an ultrasound that showed some debris in the base of the bladder. On physical examination is identified to have a penile implant of which she can't remember when it was placed and barely acknowledge that he has one. In reviewing the chart he is on tamsulosin twice daily. He was not aware. Review of Systems ROS unobtainable: due to mental status All systems: negative - Constitutional Denies fever, Denies weight loss - EENT Eyes: denies blurred vision Ears, nose, mouth and throat: Denies dysphagia - Cardiovascular Denies chest pain, Denies shortness of breath - Respiratory Denies cough, Denies 7 - Gastrointestinal Reports as per HPI - Genitourinary Denies dysuria, Denies hematuria - Integumentary Denies rash, Denies unusual bruising - Neurological Denies headaches, Denies syncope - Hematologic/Lymphatic Denies easy bleeding, Denies easy bruising Past Medical History Past Medical History: CVA/TIA, Diabetes Mellitus, Deep Vein Thrombosis (DVT), Hypertension, Osteoarthritis (OA) Additional Past Medical History / Comment(s): Wound center patient, states has DVT x3 in rt leg, past hx of diabetes and HTN, no longer requires rx since weight loss. states TIA in 2010 residual muscle weakness in rt leg, wears brace rt leg, uti . 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, pacemaker/ACID placed 2017 History of Any Multi-Drug Resistant Organisms: MRSA Year Discovered:: 07/29/23 MDRO Source:: Sputum Past Surgical History: Back Surgery, Hernia Repair, Orthopedic Surgery, Pacemaker Additional Past Surgical History / Comment(s): cervical fusion, right hip replacement, cataract surgery, penile implant Past Anesthesia/Blood Transfusion Reactions: No Reported Reaction Type of Cardiac Device: Permanent Pacemaker, AICD, Unknown Device Placement Date:: May 2018 Past Psychological History: No Psychological Hx Reported Smoking Status: Never smoker Past Alcohol Use History: None Reported Past Drug Use History: None Reported - Past Family History Mother Family Medical History: Cancer Father Family Medical History: Cancer, Coronary Artery Disease (CAD) Medications and Allergies Home Medications Medication Instructions Recorded Confirmed Type Atorvastatin [Lipitor] 10 mg PO HS 10/29/18 10/10/23 History Magnesium Oxide 400 mg PO DAILY 07/07/21 10/10/23 History Metoprolol Tartrate [Lopressor] 50 mg PO DAILY 07/07/21 10/10/23 History Tamsulosin [Flomax] 0.4 mg PO BID #0 capsule 09/13/21 10/10/23 Rx L.acidoph,Paracasei, B.lactis 1 cap PO DAILY 11/11/22 10/10/23 History [Probiotic] Sennosides [Senokot] 8.6 mg PO HS PRN 11/11/22 10/10/23 History Calcium Carbonate [Calcium] 600 mg PO BID 01/10/23 10/10/23 History Multivit-Mins/Iron/Folic/Lycop 1 tab PO DAILY 01/10/23 10/10/23 History [Centrum Men's Tablet] Medihoney 100% Topical Paste 1 applic TOPICAL DAILY 06/19/23 10/10/23 History Gabapentin [Neurontin] 300 mg PO BID #6 cap 06/23/23 10/10/23 Rx oxyCODONE-APAP 7.5-325MG [Percocet 1 tab PO TID PRN 07/28/23 10/10/23 History 7.5-325 mg] Acetaminophen Tab [Tylenol] 325 mg PO TID PRN 10/10/23 10/10/23 History Apixaban [Eliquis] 2.5 mg PO BID 10/10/23 10/10/23 History polyethylene glycoL 3350 [Miralax] 17 gm PO Q2D PRN 10/10/23 10/10/23 History Allergies Allergy/AdvReac Type Severity Reaction Status Date / Time ciprofloxacin [From Cipro] Allergy Unknown Verified 10/10/23 16:13 doxazosin Allergy Unknown Verified 10/10/23 16:13 Surgical - Exam Vital Signs Temp Pulse Resp BP Pulse Ox 97.8 F 80 18 99/54 96 10/10/23 10:51 10/10/23 10:51 10/10/23 10:51 10/10/23 10:51 10/10/23 10:51 - General well developed, well nourished - Eyes PERRL - ENT no hearing loss - Respiratory normal respiratory effort - Cardiovascular Rhythm: regular - Abdomen Abdomen: soft, non tender - Genitourinary Condom catheter with penile implant, inflatable. Normal testicles and scrotum - Integumentary The patient does have a sacral decubitus. He does have weakness from an apparent previous stroke. - Neurologic confused, memory loss - Musculoskeletal normal posture Results - Labs 10/12/23 05:44 10/11/23 07:07 Abnormal Lab Results - Last 24 Hours (Table) 10/11/23 10/11/23 10/11/23 Range/Units 12:08 18:03 20:28 RBC (4.40-5.60) X 10*6/uL Hgb (13.0-17.0) g/dL Hct (39.6-50.0) % MCH (27.0-32.0) pg MCHC (32.0-37.0) g/dL RDW (11.5-14.5) % POC Glucose (mg/dL) 154 H 133 H 228 H (70-110) mg/dL 10/12/23 Range/Units 05:44 RBC 4.25 L (4.40-5.60) X 10*6/uL Hgb 10.5 L (13.0-17.0) g/dL Hct 34.4 L (39.6-50.0) % MCH 24.7 L (27.0-32.0) pg MCHC 30.5 L (32.0-37.0) g/dL RDW 16.7 H (11.5-14.5) % POC Glucose (mg/dL) (70-110) mg/dL Microbiology - Last 24 Hours (Table) 10/10/23 19:30 Blood Culture - Preliminary Blood 10/10/23 19:15 Blood Culture - Preliminary Blood Assessment and Plan Assessment: Impression: Urinary tract infection. Nocturnal incontinence. Weakness. Multiple medical illnesses. Recommendations: I will obtain a bladder scan residual if possible. We'll see how well he is emptying his bladder supposed to determine how to manage his lower urinary tract situation clearly and incontinence and infection.
[2023-10-12 11:48] LABS: Glucose,Whole Blood 122 mg/dL (70-110)
--- NOTE | 2023-10-12 12:36 | P.PN ---
Subjective Progress Note Date: 10/12/23 Hospital course: Patient is a very pleasant 78-year-old male with a past medical history of CAD status post AICD placement, hypertension, hyperlipidemia, DVT on anticoagulation with Eliquis, stage III decubitus sacral ulcer, CVA/TIA, stage IIIB chronic kidney disease and BPH.. Patient presented to the emergency department on 10/10/23 secondary to reports of confusion and generalized weakness. He underwent full evaluation in the emergency department. Vital signs upon arrival show blood pressure 99/54, heart rate 80, respiratory rate 18, temp 97.8F, SpO2 of 96% on room aiir. EKG completed showing normal sinus rhythm at 80 bpm with a right bundle branch block. Chest x-ray showing mild right lower lobe atelectasis. Labs completed and reviewed. CBC showing leukocytosis with WBC count of 13.7 and normocytic anemia with hemoglobin of 11.8. BMP showing hyperkalemia with potassium 5.2, hyperchloremia with chloride of 95, and acute kidney injury with BUN of 40, creatinine 2.13, GFR of 28. Liver profile was unremarkable. Troponin was negative at less than 0.012. Urinalysis was positive for infection. Patient was started on IV antibiotics with Rocephin and admitted under the services with consultation to PT/OT. Physical exam: Patient seen and fully evaluated at bedside this morning. Patient currently reports feeling well this morning, continues to have reports of urinary retention over bladder scan showing only 160 mL . General: Nontoxic, no distress and appears stated age. Derm: Skin warm and dry, normal coloration for ethnicity. Head: Atraumatic, normocephalic and symmetric. Eyes: EOMs intact, no lid lag, and anicteric sclera Mouth: no lip lesions, mucus membranes moist Cardiovascular: regular rate and rhythm with normal S1S2, no murmur, positive posterior tibial pulses bilaterally, and cap refill < 2 seconds. Lungs: Respirations even, regular, and unlabored on room air. Lungs CTA bilaterally, no rhonchi, no rales, no wheezing, and no accessory muscle usage. Abdominal: soft, nontender to palpation, no guarding, no appreciable organomega ly Ext: ROM intact. No gross muscle atrophy, no edema, no contractures Neuro: Speech clear, face symmetrical and CN II-XII grossly intact with no noted focal neuro deficits Psych: Alert and oriented to person, place, time, and situation. Appropriate and pleasant affect. Assessment and Plan of Care: Acute cystitis without hematuria LACHELLE on stage III chronic kidney disease, slightly improved with IV fluid hydration Acute metabolic encephalopathy secondary to underlying UTI, improved Hyperkalemia, resolved Right renal cyst, recommend outpatient follow-up with nephrology for chronic kidney disease and further evaluation/monitoring of renal cyst. Continue IV antibiotics with Rocephin 2 g IVPB daily Follow up on urine cultures Blood cultures showing no growth to date Continue to monitor renal function closely with repeat morning BMP. Continue with gentle IV fluid hydration with 0.9% normal saline at 75 mL per hour for an additional 24 hours. Continue bladder scan to monitor for post void residuals. Continue close monitoring of I's and O's, documented output over the past 24 hours was 1875. Ultrasound renal and bladder completed and radiology report reviewed stating some debris may be within the posterior urinary bladder with reports of posterior urinary bladder wall appearing to be somewhat irregular and superior pole right renal cyst. Urology evaluated, reviewed documentation on chart and urologist in agreement with bladder scans with no further recommendations at this time. Stage III sacral pressure ulcer, present on arrival -Orders place for turning patient every 2 hours to offload pressure off sacrum/coccyx. -Patient follows wound center outpatient and pressure ulcer treated with Andrew Dorman. -Orders placed for wound care and to apply MediHoney daily. -Patient to continue to follow with wound center upon discharge Hypertension Controlled on current medication regimen. Patient to continue with metoprolol 50 mg daily. Hyperlipidemia Patient to continue with atorvastatin 10 mg nightly. History of DVT Patient to continue anticoagulation with Eliquis 2.5 mg twice daily. BPH continue with flomax 0.4 mg twice daily. Data and imaging reviewed: Morning labs reviewed. CBC showing stable normocytic anemia with hemoglobin of 10.5. BMP showing continued elevation of renal function with BUN of 31.3, creatinine 1.9, and GFR of 35. Blood cultures showing no growth to date, urine culture pending. Vital signs reviewed and stable. Blood pressure 166/83, heart rate 79, respiratory rate 18, temp 97.9F, and SpO2 of 93% on room air. CODE STATUS: Full code DVT prophylaxis: Eliquis Anticipated discharge date: Likely within the next [address]: Return to half-way facility Patient was seen independently by Nurse Pracitioner. This document was prepared using [employer] dictation software. Please allow for errors in manager appointment, while rare they do occur. Benny Phillips LEARNING DESIGN SPECIALIST rendered care for this patient independently, reviewed the findings and plan as documented in the note above. I did not physically speak with or examine the patient on this date. Objective - Vital Signs Vital signs: Vital Signs Temp 97.9 F 10/12/23 07:00 Pulse 79 10/12/23 07:00 Resp 18 10/12/23 07:00 BP 166/83 10/12/23 07:00 Pulse Ox 93 L 10/12/23 07:00 FiO2 Intake & Output 10/11/23 10/12/23 10/12/23 18:59 06:59 18:59 Intake Total 480 Output Total 635 1400 Balance -155 -1400 Weight 56.245 kg Intake: Oral 480 Output: Urine 475 1400 Post Void Residual 160 Other: Voiding Method External Catheter External Catheter # Voids 0 - Labs CBC & Chem 7: 10/13/23 10:21 10/13/23 10:21 Labs: Abnormal Lab Results - Last 24 Hours (Table) 10/11/23 10/11/23 10/11/23 Range/Units 12:08 18:03 20:28 POC Glucose (mg/dL) 154 H 133 H 228 H (70-110) mg/dL Microbiology - Last 24 Hours (Table) 10/10/23 19:30 Blood Culture - Preliminary Blood 10/10/23 19:15 Blood Culture - Preliminary Blood
[2023-10-12 17:40] LABS: Glucose,Whole Blood 165 mg/dL (70-110)
[2023-10-12] MEDS: ATORVASTATIN 10 MG TAB PO SCH (20:11)
[2023-10-12 20:44] LABS: Glucose,Whole Blood 199 mg/dL (70-110)
[2023-10-13] MEDS: oxyCODONE-APAP 7.5-325MG 1 EACH TAB PO PRN ×2 (04:32→12:01)
[2023-10-13 06:23] LABS: Glucose,Whole Blood 113 mg/dL (70-110)
[2023-10-13] MEDS: INSULIN ASPART (NovoLOG) 100 UNIT/ML VIAL SQ SCH ×4 (07:02→20:37)
[2023-10-13] MEDS: SODIUM CHLORIDE 0.9% 1,000 ML IV SCH ×3 (09:46→21:49)
[2023-10-13] MEDS: TAMSULOSIN 0.4 MG CAP.ER.24H PO SCH ×2 (09:47→20:37)
[2023-10-13] MEDS: FAMOTIDINE 20 MG TAB PO SCH (09:47)
[2023-10-13] MEDS: METOPROLOL TARTRATE 50 MG TAB PO SCH (09:47)
[2023-10-13] MEDS: APIXABAN 2.5 MG TABLET PO SCH ×2 (09:47→20:37)
[2023-10-13] MEDS: GABAPENTIN 300 MG CAP PO SCH ×2 (09:47→20:37)
[2023-10-13 11:03] LABS: Anisocytosis Slight; HCT 35.8 % (39.0-53.0); HGB 11.6 gm/dL (13.0-17.5); Hypochromasia Moderate; MCH 26.4 pg (25.0-35.0); MCHC 32.4 g/dL (31.0-37.0); MCV 81.4 fL (80.0-100.0); Mean Platelet Volume 9.9; Platelet Count 286 k/uL (150-450); RBC 4.39 m/uL (4.30-5.90); RDW 16.1 % (11.5-15.5); WBC 10.8 k/uL (3.8-10.6)
[2023-10-13 11:32] LABS: ALT 16 U/L (4-49); AST 30 U/L (17-59); African American GFR (CKD) 52 (>60 ml/min/1.73 sqM); Albumin 3.3 g/dL (3.5-5.0); Albumin/Globulin Ratio 0.8; Alkaline Phosphatase 49 U/L (38-126); Anion Gap 11 mmol/L; Blood Urea Nitrogen 26 mg/dL (9-20); Calcium 8.1 mg/dL (8.4-10.2); Carbon Dioxide 19 mmol/L (22-30); Chloride 113 mmol/L (98-107); Globulin 4.3 g/dL; Glucose 206 mg/dL (74-99); Magnesium 1.8 mg/dL (1.6-2.3); Non-African American GFR(CKD) 45 (>60 ml/min/1.73 sqM); Potassium 4.9 mmol/L (3.5-5.1); Sodium 143 mmol/L (137-145); Total Bilirubin 0.4 mg/dL (0.2-1.3); Total Protein 7.6 g/dL (6.3-8.2)
[2023-10-13 11:55] LABS: Glucose,Whole Blood 203 mg/dL (70-110)
--- NOTE | 2023-10-13 12:30 | P.PN ---
Subjective Progress Note Date: 10/13/23 Principal diagnosis: UTI, urinary incontinence Patient has experienced urinary incontinence recently despite taking tamsulosin. Bladder Scan verified complete bladder emptying. The preliminary urine culture shows gram-negative bacilli. Objective - Vital Signs Vital signs: Vital Signs Temp 97.6 F 10/13/23 07:00 Pulse 99 10/13/23 07:00 Resp 16 10/13/23 07:00 BP 189/82 10/13/23 07:00 Pulse Ox 94 L 10/13/23 07:00 FiO2 Intake & Output 10/12/23 10/13/23 10/13/23 18:59 06:59 18:59 Intake Total 450 236 Output Total 900 500 Balance -450 -500 236 Intake: Oral 450 236 Output: Urine 900 500 Other: Voiding Method External Catheter External Catheter External Catheter # Voids 0 # Bowel Movements 0 - Constitutional General appearance: Present: average body habitus, no acute distress - Psychiatric Psychiatric: Present: A&O x's 3 - Labs CBC & Chem 7: 10/13/23 10:21 10/13/23 10:21 Labs: Abnormal Lab Results - Last 24 Hours (Table) 10/12/23 10/12/23 10/13/23 Range/Units 17:29 20:43 06:22 WBC (3.8-10.6) k/uL Hgb (13.0-17.5) gm/dL Hct (39.0-53.0) % RDW (11.5-15.5) % Chloride (98-107) mmol/L Carbon Dioxide (22-30) mmol/L BUN (9-20) mg/dL Creatinine (0.66-1.25) mg/dL Glucose (74-99) mg/dL POC Glucose (mg/dL) 165 H 199 H 113 H (70-110) mg/dL Calcium (8.4-10.2) mg/dL Albumin (3.5-5.0) g/dL 10/13/23 10/13/23 10/13/23 Range/Units 10:21 10:21 11:54 WBC 10.8 H (3.8-10.6) k/uL Hgb 11.6 L (13.0-17.5) gm/dL Hct 35.8 L (39.0-53.0) % RDW 16.1 H (11.5-15.5) % Chloride 113 H (98-107) mmol/L Carbon Dioxide 19 L (22-30) mmol/L BUN 26 H (9-20) mg/dL Creatinine 1.45 H (0.66-1.25) mg/dL Glucose 206 H (74-99) mg/dL POC Glucose (mg/dL) 203 H (70-110) mg/dL Calcium 8.1 L (8.4-10.2) mg/dL Albumin 3.3 L (3.5-5.0) g/dL Microbiology - Last 24 Hours (Table) 10/10/23 22:00 Urine Culture - Final Urine,Voided Morganella morganii 10/10/23 19:30 Blood Culture - Preliminary Blood Assessment and Plan (1) UTI (urinary tract infection) Current Visit: Yes Status: Acute Code(s): N39.0 - URINARY TRACT INFECTION, SITE NOT SPECIFIED SNOMED Code(s): 23387197 Plan: - Continue tamsulosin - Continue ceftriaxone, pending the final urine culture results
--- NOTE | 2023-10-13 17:06 | P.PN ---
Subjective Progress Note Date: 10/13/23 Hospital course: Patient is a very pleasant 78-year-old male with a past medical history of CAD status post AICD placement, hypertension, hyperlipidemia, DVT on anticoagulation with Eliquis, stage III decubitus sacral ulcer, CVA/TIA, stage IIIB chronic kidney disease and BPH.. Patient presented to the emergency department on 10/10/23 secondary to reports of confusion and generalized weakness. He underwent full evaluation in the emergency department. Vital signs upon arrival show blood pressure 99/54, heart rate 80, respiratory rate 18, temp 97.8F, SpO2 of 96% on room aiir. EKG completed showing normal sinus rhythm at 80 bpm with a right bundle branch block. Chest x-ray showing mild right lower lobe atelectasis. Labs completed and reviewed. CBC showing leukocytosis with WBC count of 13.7 and normocytic anemia with hemoglobin of 11.8. BMP showing hyperkalemia with potassium 5.2, hyperchloremia with chloride of 95, and acute kidney injury with BUN of 40, creatinine 2.13, GFR of 28. Liver profile was unremarkable. Troponin was negative at less than 0.012. Urinalysis was positive for infection. Patient was started on IV antibiotics with Rocephin and admitted under the services with consultation to PT/OT. Physical exam: Patient seen and fully evaluated at bedside this morning. Patient currently reports feeling well this morning, continues to have reports of urinary retention over bladder scan showing only 160 mL General: Nontoxic, no distress and appears stated age. Derm: Skin warm and dry, normal coloration for ethnicity. Head: Atraumatic, normocephalic and symmetric. Eyes: EOMs intact, no lid lag, and anicteric sclera Mouth: no lip lesions, mucus membranes moist Cardiovascular: regular rate and rhythm with normal S1S2, no murmur, positive posterior tibial pulses bilaterally, and cap refill < 2 seconds. Lungs: Respirations even, regular, and unlabored on room air. Lungs CTA bilaterally, no rhonchi, no rales, no wheezing, and no accessory muscle usage. Abdominal: soft, nontender to palpation, no guarding, no appreciable organomegaly Ext: ROM intact. No gross muscle atrophy, no edema, no contractures Neuro: Speech clear, face symmetrical and CN II-XII grossly intact with no noted focal neuro deficits Psych: Alert and oriented to person, place, time, and situation. Appropriate and pleasant affect. Assessment and Plan of Care: Acute cystitis without hematuria LACHELLE on stage III chronic kidney disease, slightly improved with IV fluid hydration Acute metabolic encephalopathy secondary to underlying UTI, improved Hyperkalemia, resolved Right renal cyst, recommend outpatient follow-up with nephrology for chronic kidney disease and further evaluation/monitoring of renal cyst. Continue IV antibiotics with Rocephin 2 g IVPB daily, dose #4 Urine culture preliminarily positive for gram-negative bacteria, awaiting final culture and sensitivity report Blood cultures showing no growth to date Continue to monitor renal function closely with repeat morning BMP. Continue with gentle IV fluid hydration with 0.9% normal saline at 75 mL per hour for an additional 24 hours. Continue bladder scan to monitor for post void residuals. Continue close monitoring of I's and O's, documented output over the past 24 hours was 1875. Ultrasound renal and bladder completed and radiology report reviewed stating some debris may be within the posterior urinary bladder with reports of posterior urinary bladder wall appearing to be somewhat irregular and superior pole right renal cyst. Urology evaluated, reviewed documentation on chart and urologist in agreement with bladder scans with no further recommendations at this time. Stage III sacral pressure ulcer, present on arrival -Orders place for turning patient every 2 hours to offload pressure off sacrum/coccyx. -Patient follows wound center outpatient and pressure ulcer treated with Andrew Honey. -Orders placed for wound care and to apply MediHoney daily. -Patient to continue to follow with wound center upon discharge Hypertension Controlled on current medication regimen. Patient to continue with metoprolol 50 mg daily. Hyperlipidemia Patient to continue with atorvastatin 10 mg nightly. History of DVT Patient to continue anticoagulation with Eliquis 2.5 mg twice daily. BPH continue with flomax 0.4 mg twice daily. Data and imaging reviewed: Morning labs reviewed. CBC showing stable normocytic anemia with hemoglobin of 11.6. BMP showing improvement of renal function with BUN of 26, creatinine 1.45, GFR 45. Blood cultures showing no growth to date. Urine culture preliminarily positive for gram-negative bacteria, awaiting final culture and sensitivity report Vital signs reviewed and stable. Blood pressure elevated this morning at 189/82, heart rate 99, respiratory rate 16, temp 97.6F, SpO2 of 94% on room air. CODE STATUS: Full code DVT prophylaxis: Eliquis Anticipated discharge date: Likely within the next [address] Patient was seen independently by Nurse Pracitioner. This document was prepared using [employer] dictation software. Please allow for errors in bsa officer, while rare they do occur. Benny Phillips, FAIRING MAN rendered care for this patient independently, reviewed the findings and plan as documented in the note above. I did not physically speak with or examine the patient on this date. Objective - Vital Signs Vital signs: Vital Signs Temp 97.6 F 10/13/23 07:00 Pulse 99 10/13/23 07:00 Resp 16 10/13/23 07:00 BP 189/82 10/13/23 07:00 Pulse Ox 94 L 10/13/23 07:00 FiO2 Intake & Output 10/12/23 10/13/23 10/13/23 18:59 06:59 18:59 Intake Total 450 236 Output Total 900 500 Balance -450 -500 236 Intake: Oral 450 236 Output: Urine 900 500 Other: Voiding Method External Catheter External Catheter # Voids 0 # Bowel Movements 0 - Labs CBC & Chem 7: 10/13/23 10:21 10/13/23 10:21 Labs: Abnormal Lab Results - Last 24 Hours (Table) 10/12/23 10/12/23 10/12/23 Range/Units 05:44 05:44 05:44 RBC 4.25 L (4.40-5.60) X 10*6/uL Hgb 10.5 L (13.0-17.0) g/dL Hct 34.4 L (39.6-50.0) % MCH 24.7 L (27.0-32.0) pg MCHC 30.5 L (32.0-37.0) g/dL RDW 16.7 H (11.5-14.5) % BUN 31.3 H (9.0-27.0) mg/dL Creatinine 1.9 H (0.6-1.5) mg/dL Est GFR (CKD-EPI) 35 L (>=60) POC Glucose (mg/dL) (70-110) mg/dL Hemoglobin A1c 6.9 H (<=6.0) % Calcium 8.3 L (8.7-10.3) mg/dL Total Bilirubin 0.2 L (0.3-1.2) mg/dL ALT 9 L (10-49) U/L Albumin 3.2 L (3.8-4.9) g/dL Globulin 3.9 H (1.6-3.3) g/dL Albumin/Globulin Ratio 0.82 L (1.60-3.17) Ratio 10/12/23 10/12/23 10/12/23 Range/Units 11:44 17:29 20:43 RBC (4.40-5.60) X 10*6/uL Hgb (13.0-17.0) g/dL Hct (39.6-50.0) % MCH (27.0-32.0) pg MCHC (32.0-37.0) g/dL RDW (11.5-14.5) % BUN (9.0-27.0) mg/dL Creatinine (0.6-1.5) mg/dL Est GFR (CKD-EPI) (>=60) POC Glucose (mg/dL) 122 H 165 H 199 H (70-110) mg/dL Hemoglobin A1c (<=6.0) % Calcium (8.7-10.3) mg/dL Total Bilirubin (0.3-1.2) mg/dL ALT (10-49) U/L Albumin (3.8-4.9) g/dL Globulin (1.6-3.3) g/dL Albumin/Globulin Ratio (1.60-3.17) Ratio 10/13/23 Range/Units 06:22 RBC (4.40-5.60) X 10*6/uL Hgb (13.0-17.0) g/dL Hct (39.6-50.0) % MCH (27.0-32.0) pg MCHC (32.0-37.0) g/dL RDW (11.5-14.5) % BUN (9.0-27.0) mg/dL Creatinine (0.6-1.5) mg/dL Est GFR (CKD-EPI) (>=60) POC Glucose (mg/dL) 113 H (70-110) mg/dL Hemoglobin A1c (<=6.0) % Calcium (8.7-10.3) mg/dL Total Bilirubin (0.3-1.2) mg/dL ALT (10-49) U/L Albumin (3.8-4.9) g/dL Globulin (1.6-3.3) g/dL Albumin/Globulin Ratio (1.60-3.17) Ratio Microbiology - Last 24 Hours (Table) 10/10/23 19:30 Blood Culture - Preliminary Blood 10/10/23 22:00 Urine Culture - Preliminary Urine,Voided Gram Neg Bacilli 10/10/23 19:15 Blood Culture - Preliminary Blood
[2023-10-13 17:20] LABS: Glucose,Whole Blood 150 mg/dL (70-110)
[2023-10-13 20:34] LABS: Glucose,Whole Blood 126 mg/dL (70-110)
[2023-10-13] MEDS: ATORVASTATIN 10 MG TAB PO SCH (20:37)
[2023-10-14] MEDS: oxyCODONE-APAP 7.5-325MG 1 EACH TAB PO PRN (04:09)
[2023-10-14 05:10] VITALS: TEMP 98.6
[2023-10-14 06:21] LABS: Glucose,Whole Blood 122 mg/dL (70-110)
[2023-10-14] MEDS: INSULIN ASPART (NovoLOG) 100 UNIT/ML VIAL SQ SCH ×2 (06:31→12:57)
[2023-10-14 08:41] VITALS: BP 150/78; PULSE 85; RESP 17
[2023-10-14] MEDS: FAMOTIDINE 20 MG TAB PO SCH (09:30)
[2023-10-14] MEDS: TAMSULOSIN 0.4 MG CAP.ER.24H PO SCH (09:30)
[2023-10-14] MEDS: METOPROLOL TARTRATE 50 MG TAB PO SCH (09:31)
[2023-10-14] MEDS: GABAPENTIN 300 MG CAP PO SCH (09:31)
[2023-10-14] MEDS: APIXABAN 2.5 MG TABLET PO SCH (09:31)
[2023-10-14 12:22] LABS: Glucose,Whole Blood 125 mg/dL (70-110)
--- NOTE | 2023-10-14 13:47 | P.DS ---
Providers Date of admission: 10/10/23 19:04 Expected date of discharge: 10/14/23 Attending physician: Juju Gates DO Consults: 10/11/23 16:50 Consult Physician Routine Consulting Provider: Allen Ruiz Consult Reason/Comments: Urinary retention, UTI, and abnormal bladder findings on ultrasound Do you want consulting provider notified?: Yes Primary care physician: Zeeshan William MD Hospital Course: Discharge Diagnosis: Acute cystitis without hematuria,. Patient received 5 day course of IV antibiotics with Rocephin. Urine culture is positive for Morganella morganii. Per culture and sensitivity report, patient being discharged home on an additional 5 day course of Cefpodoxime 200 mg twice daily to total an antibiotic treatment course of 10 days for complicated UTI. Urinary retention, patient was evaluated by Urologist, urinary retention improved after treatment of complicated UTI. Patient to follow up outpatient with urology in 1 week. LACHELLE on stage III chronic kidney disease, improved after IV fluid hydration. Renal function upon arrival showing BUN 40, creatinine 2.13, and GFR of 28 and at time of discharge renal function showing BUN of 26, creatinine 1.45, GFR 45. Acute metabolic encephalopathy secondary UTI, resolved. Hyperkalemia, resolved Right renal cyst, recommend outpatient follow-up with nephrology for chronic kidney disease and further evaluation/monitoring of renal cyst. Stage III sacral pressure ulcer, present on arrival. Discharge orders placed to continue dressing changes and application of MediHoney to sacral wound daily and turn every 2 hours to offload pressure from sacrum/coccyx. Hypertension. Patient to continue with metoprolol 50 mg daily. Hyperlipidemia. Patient to continue with atorvastatin 10 mg nightly. History of DVT. Patient to continue anticoagulation with Eliquis 2.5 mg twice daily. BPH continue with flomax 0.4 mg twice daily. Hospital Course: Patient is a very pleasant 78-year-old male with a past medical history of CAD status post AICD placement, hypertension, hyperlipidemia, DVT on anticoagulation with Eliquis, stage III decubitus sacral ulcer, CVA/TIA, stage IIIB chronic kidney disease and BPH.. Patient presented to the emergency department on 10/10/23 secondary to reports of confusion and generalized weakness. He underwent full evaluation in the emergency department. Vital signs upon arrival show blood pressure 99/54, heart rate 80, respiratory rate 18, temp 97.8F, SpO2 of 96% on room aiir. EKG completed showing normal sinus rhythm at 80 bpm with a right bundle branch block. Chest x-ray showing mild right lower lobe atelectasis. Labs completed and reviewed. CBC showing leukocytosis with WBC count of 13.7 and normocytic anemia with hemoglobin of 11.8. BMP showing hyperkalemia with potassium 5.2, hyperchloremia with chloride of 95, and acute kidney injury with BUN of 40, creatinine 2.13, GFR of 28. Liver profile was unremarkable. Troponin was negative at less than 0.012. Urinalysis was positive for infection. Patient was started on IV antibiotics with Rocephin and admitted under the services with consultation to PT/OT. Patient received 5 day course of IV antibiotics with Rocephin. Urine culture was positive for Morganella morganii. Per culture and sensitivity report, patient being discharged home on an additional 5 day course of Cefpodoxime 200 mg twice daily to total an antibiotic treatment course of 10 days for complicated UTI. Physical exam: General: Nontoxic, no distress and appears stated age. Derm: Skin warm and dry, normal coloration for ethnicity. Head: Atraumatic, normocephalic and symmetric. Eyes: EOMs intact, no lid lag, and anicteric sclera Mouth: no lip lesions, mucus membranes moist Cardiovascular: regular rate and rhythm with normal S1S2, no murmur, positive posterior tibial pulses bilaterally, and cap refill < 2 seconds. Lungs: Respirations even, regular, and unlabored on room air. Lungs CTA bilaterally, no rhonchi, no rales, no wheezing, and no accessory muscle usage. Abdominal: soft, nontender to palpation, no guarding, no appreciable organomegaly Ext: ROM intact. No gross muscle atrophy, no edema, no contractures Neuro: Speech clear, face symmetrical and CN II-XII grossly intact with no noted focal neuro deficits Psych: Alert and oriented to person, place, time, and situation. Appropriate and pleasant affect. A total of 38 minutes of time were spent preparing this complex discharge summary. Pt was discharged on 10/14/23 at 9:32 AM Patient was seen independently by Nurse Practitioner. This document was prepared using [employer] dictation software. Please allow for e rrors in auto camp attendant while rare they do occur. Benny Phillips NP rendered care for this patient independently, reviewed the findings and plan as documented in the note above. I did not physically speak with or examine the patient on this date. Patient Condition at Discharge: Stable Plan - Discharge Summary Discharge Rx Participant: No New Discharge Prescriptions: New Cefpodoxime Proxetil [Vantin] 100 mg PO Q12HR 5 Days #10 tab Continue Atorvastatin [Lipitor] 10 mg PO HS Magnesium Oxide 400 mg PO DAILY Metoprolol Tartrate [Lopressor] 50 mg PO DAILY Tamsulosin [Flomax] 0.4 mg PO BID #0 capsule L.acidoph,Paracasei, B.lactis [Probiotic] 1 cap PO DAILY Gabapentin [Neurontin] 300 mg PO BID #6 cap oxyCODONE-APAP 7.5-325MG [Percocet 7.5-325 mg] 1 tab PO TID PRN PRN Reason: Pain Acetaminophen Tab [Tylenol] 325 mg PO TID PRN PRN Reason: Fever And/ Or Pain polyethylene glycoL 3350 [Miralax] 17 gm PO Q2D PRN PRN Reason: Constipation Sennosides [Senokot] 8.6 mg PO HS PRN PRN Reason: No BM for 48 hours Multivit-Mins/Iron/Folic/Lycop [Centrum Men's Tablet] 1 tab PO DAILY Calcium Carbonate [Calcium] 600 mg PO BID Medihoney 100% Topical Paste 1 applic TOPICAL DAILY Apixaban [Eliquis] 2.5 mg PO BID Discharge Medication List Atorvastatin [Lipitor] 10 mg PO HS 10/29/18 [History] Magnesium Oxide 400 mg PO DAILY 07/07/21 [History] Metoprolol Tartrate [Lopressor] 50 mg PO DAILY 07/07/21 [History] Tamsulosin [Flomax] 0.4 mg PO BID #0 capsule 09/13/21 [Rx] L.acidoph,Paracasei, B.lactis [Probiotic] 1 cap PO DAILY 11/11/22 [History] Sennosides [Senokot] 8.6 mg PO HS PRN 11/11/22 [History] Calcium Carbonate [Calcium] 600 mg PO BID 01/10/23 [History] Multivit-Mins/Iron/Folic/Lycop [Centrum Men's Tablet] 1 tab PO DAILY 01/10/23 [History] Medihoney 100% Topical Paste 1 applic TOPICAL DAILY 06/19/23 [History] Gabapentin [Neurontin] 300 mg PO BID #6 cap 06/23/23 [Rx] oxyCODONE-APAP 7.5-325MG [Percocet 7.5-325 mg] 1 tab PO TID PRN 07/28/23 [History] Acetaminophen Tab [Tylenol] 325 mg PO TID PRN 10/10/23 [History] Apixaban [Eliquis] 2.5 mg PO BID 10/10/23 [History] polyethylene glycoL 3350 [Miralax] 17 gm PO Q2D PRN 10/10/23 [History] Cefpodoxime Proxetil [Vantin] 100 mg PO Q12HR 5 Days #10 tab 10/14/23 [Rx] Follow up Appointment(s)/Referral(s): Allen Riuz MD [STAFF PHYSICIAN] - 1 Week (Office will call patient with appointment ) Zeeshan William MD [Primary Care Provider] - 1-2 days Activity/Diet/Wound Care/Special Instructions: [facility] Address:[address], [place] [address] [facility] Address:[address], [place] [id number] Aliyah [phone] Activity: Requires supervision and assistance. Turn every 2 hours and offload pressure off of sacrum/coccyx. Diet: Heart healthy and carb consistent diet. Avoid salts, or foods with hidden salts such as canned or boxed foods and frozen dinners. Extra salt makes your heart wo rk harder and traps the fluid in your body for longer. Special Instructions: Take all of your medications as directed and remember to keep all of your doc tor's appointments and follow-up as needed. Right renal cyst, recommend outpatient follow-up with nephrology for chronic kidney disease and further evaluation/monitoring of renal cyst. Continue to follow up outpatient with wound clinic for stage III sacral pressure ulcer, continue dressing changes and applying Andrew Honey to sacral wound daily. Thank you for allowing us to participate in your care, it was truly a pleasure having you for our patient!!! Discharge Disposition: TRANSFER TO SNF/ECF
== END 2023-10-14 15:04 | DRG 689 ==
LOC: EC 10:45 → 6NMEDSUR 19:03 → OBSVTOIN 19:04 → 6NMEDSUR 20:17
PROVIDERS: ADMIT Internal Medicine; ATTEND Internal Medicine
DX: N30.00 Acute cystitis without hematuria (principal); G93.41 Metabolic encephalopathy; L89.153 Pressure ulcer of sacral region, stage 3; N17.9 Acute kidney failure, unspecified; D63.1 Anemia in chronic kidney disease; E11.22 Type 2 diabetes mellitus with diabetic chronic kidney disease; E87.8 Other disorders of electrolyte and fluid balance, not elsewhere classified; N18.32 Chronic kidney disease, stage 3b; I69.841 Monoplegia of lower limb following other cerebrovascular disease affecting right dominant side; I12.9 Hypertensive chronic kidney disease with stage 1 through stage 4 chronic kidney disease, or unspecified chronic kidney disease; E86.0 Dehydration; N28.1 Cyst of kidney, acquired; E87.5 Hyperkalemia; B96.89 Other specified bacterial agents as the cause of diseases classified elsewhere; N40.1 Benign prostatic hyperplasia with lower urinary tract symptoms; N39.498 Other specified urinary incontinence; R33.8 Other retention of urine; E78.5 Hyperlipidemia, unspecified; I25.10 Atherosclerotic heart disease of native coronary artery without angina pectoris; M19.90 Unspecified osteoarthritis, unspecified site; I45.10 Unspecified right bundle-branch block; Z96.641 Presence of right artificial hip joint; Z96.0 Presence of urogenital implants; Z95.810 Presence of automatic (implantable) cardiac defibrillator; Z86.14 Personal history of Methicillin resistant Staphylococcus aureus infection; Z79.891 Long term (current) use of opiate analgesic; Z79.01 Long term (current) use of anticoagulants; Z11.52 Encounter for screening for COVID-19; Z98.1 Arthrodesis status; Z99.3 Dependence on wheelchair; Z86.718 Personal history of other venous thrombosis and embolism; Z79.899 Other long term (current) drug therapy; Z88.1 Allergy status to other antibiotic agents; Z88.8 Allergy status to other drugs, medicaments and biological substances
CPT/HCPCS: 36415; 71046; 76770; 80053; 81001; 83036; 83605; 83735; 84100; 84484; 85025; 85027; 87040; 87077; 87086; 87186; 87636; 93005; 96361; 96365; 99285

== ENCOUNTER 2023-10-30 19:41 | Inpatient (IN) | payer OTHER ==
[2023-10-30 20:14] LABS: Glucose,Whole Blood 149 mg/dL (70-110)
[2023-10-30 20:45] LABS: Anisocytosis Slight; HCT 34.5 % (39.0-53.0); HGB 11.2 gm/dL (13.0-17.5); Hypochromasia Moderate; MCH 25.1 pg (25.0-35.0); MCHC 32.6 g/dL (31.0-37.0); MCV 77.1 fL (80.0-100.0); Mean Platelet Volume 9.2; Microcytosis Slight; Platelet Count 317 k/uL (150-450); RBC 4.48 m/uL (4.30-5.90); RDW 16.4 % (11.5-15.5); WBC 22.7 k/uL (3.8-10.6)
--- NOTE | 2023-10-30 20:47 | ED ---
Altered Mental Status HPI - General Chief Complaint: Altered Mental Status Stated Complaint: Altered Mental Status Time Seen by Provider: 10/30/23 20:09 Source: EMS Mode of arrival: EMS Limitations: altered mental status - History of Present Illness Initial Comments: 78-year-old male with history of CVA/TIA with residual weakness to the right leg, diabetes, hypertension presenting from [facility] home for altered mental status. History obtained from nursing staff is limited. I am told that the patient was noted to be leaning more towards his right side than usual today by [facility] home staff. Patient is able to provide limited history. He is 93% on room air, no previous documentation to indicate that he wears oxygen at home. Patient denies any chest pain, difficulty breathing, abdominal pain, nausea, headache, weakness. He is able to hold short conversations with me and then becomes distracted. - Related Data Home Medications Medication Instructions Recorded Confirmed Atorvastatin [Lipitor] 10 mg PO HS 10/29/18 10/30/23 Magnesium Oxide 400 mg PO DAILY 07/07/21 10/30/23 Metoprolol Tartrate [Lopressor] 50 mg PO DAILY 07/07/21 10/30/23 L.acidoph,Paracasei, B.lactis 1 cap PO DAILY 11/11/22 10/30/23 [Probiotic] Calcium Carbonate [Calcium] 600 mg PO BID 01/10/23 10/30/23 Multivit-Mins/Iron/Folic/Lycop 1 tab PO DAILY 01/10/23 10/30/23 [Centrum Men's Tablet] [facility] Topical Paste 1 applic TOPICAL DAILY 06/19/23 10/30/23 oxyCODONE-APAP 7.5-325MG [Percocet 1 tab PO TID PRN 07/28/23 10/30/23 7.5-325 mg] Acetaminophen Tab [Tylenol] 325 mg PO TID PRN 10/10/23 10/30/23 Apixaban [Eliquis] 2.5 mg PO BID 10/10/23 10/30/23 polyethylene glycoL 3350 [Miralax] 17 gm PO Q2D 10/10/23 10/30/23 Docusate [Colace] 100 mg PO DAILY PRN 10/30/23 10/30/23 Previous Rx's Medication Instructions Recorded Tamsulosin [Flomax] 0.4 mg PO BID #0 capsule 09/13/21 Gabapentin [Neurontin] 300 mg PO BID #6 cap 06/23/23 Allergies Allergy/AdvReac Type Severity Reaction Status Date / Time ciprofloxacin [From Cipro] Allergy Unknown Verified 10/10/23 16:13 doxazosin Allergy Unknown Verified 10/10/23 16:13 Review of Systems ROS Statement: Those systems with pertinent positive or pertinent negative responses have been documented in the HPI. ROS Other: All systems not noted in ROS Statement are negative. Past Medical History Past Medical History: CVA/TIA, Diabetes Mellitus, Deep Vein Thrombosis (DVT), Hypertension, Osteoarthritis (OA) Additional Past Medical History / Comment(s): Wound center patient, states has DVT x3 in rt leg, past hx of diabetes and HTN, no longer requires rx since weight loss. states TIA in 2010 residual muscle weakness in rt leg, wears brace rt leg, uti . 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, pacemaker/ACID placed 2017 History of Any Multi-Drug Resistant Organisms: MRSA Date of last positivie culture/infection: 07/29/23 MDRO Source:: Sputum Past Surgical History: Back Surgery, Hernia Repair, Orthopedic Surgery, Pacemaker Additional Past Surgical History / Comment(s): cervical fusion, right hip replacement, cataract surgery, penile implant Past Anesthesia/Blood Transfusion Reactions: No Reported Reaction Type of Cardiac Device: Permanent Pacemaker, AICD, Unknown Device Placement Date:: May 2018 Past Psychological History: No Psychological Hx Reported Smoking Status: Never smoker Past Alcohol Use History: None Reported Past Drug Use History: None Reported - Past Family History Mother Family Medical History: Cancer Father Family Medical History: Cancer, Coronary Artery Disease (CAD) General Exam Limitations: altered mental status General appearance: alert, in no apparent distress Head exam: Present: atraumatic, normocephalic Eye exam: Present: normal appearance Neck exam: Present: normal inspection Respiratory exam: Present: normal lung sounds bilaterally. Absent: respiratory distress, wheezes, rales, rhonchi, stridor Cardiovascular Exam: Present: regular rate, normal rhythm, normal heart sounds. Absent: systolic murmur, diastolic murmur, rubs, gallop, clicks GI/Abdominal exam: Present: soft. Absent: distended, tenderness, guarding, rebound, rigid Extremities exam: Present: normal inspection Neurological exam: Present: alert, altered (A&O x 1) Skin exam: Present: warm, dry Course Vital Signs 10/30/23 10/30/23 10/30/23 19:49 20:00 21:00 Temperature 99.2 F Pulse Rate 89 87 85 Respiratory 16 16 22 Rate Blood Pressure 122/63 125/64 122/61 O2 Sat by Pulse 93 L 93 L 95 Oximetry 10/30/23 10/30/23 10/31/23 22:00 23:00 00:01 Temperature 99.2 F Pulse Rate 78 76 72 Respiratory 19 18 15 Rate Blood Pressure 108/59 118/63 116/53 O2 Sat by Pulse 95 95 96 Oximetry Medical Decision Making - Medical Decision Making Was pt. sent in by a medical professional or institution (, PA, PROJECT CONSULTANT, urgent care, hospital, or shelter...) When possible be specific @ -No Did you speak to anyone other than the patient for history (EMS, parent, family, police, friend...)? What history was obtained from this source @ -History obtained from nursing staff Did you review nursing and triage notes (agree or disagree)? Why? @ -I reviewed and agree with nursing and triage notes Were old charts reviewed (outside hosp., previous admission, EMS record, old EKG, old radiological studies, urgent care reports/EKG's, shelter records)? Report findings @ -Previous admissions and cultures are reviewed Differential Diagnosis (chest pain, altered mental status, abdominal pain women, abdominal pain men, vaginal bleeding, weakness, fever, dyspnea, syncope, headache, dizziness, GI bleed, back pain, seizure, CVA, palpatations, mental health, musculoskeletal)? @ -[facility] Differential Altered Mental Status: Hypoglycemia, DKA, hypercapnia, ETOH, overdose, CO poisoning, trauma, myxedema coma, HTN encephalopathy, infection, encephalitis, psychosis, intercranial hemorrhage, hepatic encephalopathy, meningitis, CVA this is not meant to be an all-inclusive list EKG interpreted by me (3pts min.). @ -As above X-rays interpreted by me (1pt min.). @ -Chest x-ray shows cardiomegaly redemonstrated with bibasilar acute i nfiltrate and/or atelectasis CT interpreted by me (1pt min.). @ -CT brain without contrast shows no acute intracranial process. Right frontal lobe scalp edema. No evidence of fracture. Nonspecific white matter changes, likely secondary to chronic small vessel ischemic disease. Remote left basal ganglia lacunar injury.. U/S interpreted by me (1pt. min.). @ -None done What testing was considered but not performed or refused? (CT, X-rays, U/S, labs)? Why? @ -None What meds were considered but not given or refused? Why? @ -None Did you discuss the management of the patient with other professionals (professionals i.e. , PA, PROJECT CONSULTANT, lab, RT, psych nurse, case management social worker, senior java software developer, teacher, stream control officer, rehabilitation case coordinator)? Give summary @ -I spoke with Dr. Cid who accepted admission Was smoking cessation discussed for >3mins.? @ -No Was critical care preformed (if so, how long)? @ -No Were there social determinants of health that impacted care today? How? (Homelessness, low income, unemployed, alcoholism, drug addiction, transportation, low edu. Level, literacy, decrease access to med. care, [place] [facility], rehab)? @ -No Was there de-escalation of care discussed even if they declined (Discuss DNR or withdrawal of care, Hospice)? DNR status @ -No What co-morbidities impacted this encounter? (DM, HTN, Smoking, COPD, CAD, Cancer, CVA, ARF, Chemo, Hep., AIDS, mental health diagnosis, sleep apnea, morbid obesity)? @ -History of CVA, diabetes, hypertension Was patient admitted / discharged? Hospital course, mention meds given and route, prescriptions, significant lab abnormalities, going to OR and other pertinent info. @ -78-year-old male presenting with chief complaint of altered mental status from [facility] home. History and physical exam are conducted. Patient is pleasantly confused, alert and oriented x 1. He is able to follow some commands but not all. WBC 22.7. BUN 40 and creatinine 2.12, patient is receiving IV hydration. Negative troponin. Urine positive for UTI. He is negative for influenza, RSV, and COVID. Chest x-ray shows bibasilar infiltrates. CT brain shows no acute intracranial process. Patient will be admitted. Blood cultures have been drawn and he has been treated with 1 g Rocephin and 500 mg azithromycin. I discussed this case with my attending Dr. Nieves. Undiagnosed new problem with uncertain prognosis? @ -No Drug Therapy requiring intensive monitoring for toxicity (Heparin, Nitro, Insulin, Cardizem)? @ -No Were any procedures done? @ -No Diagnosis/symptom? @ -UTI, pneumonia, acute kidney injury Acute, or Chronic, or Acute on Chronic? @ -Acute Uncomplicated (without systemic symptoms) or Complicated (systemic symptoms)? @ -Complicated Side effects of treatment? @ -No Exacerbation, Progression, or Severe Exacerbation? @ -No Poses a threat to life or bodily function? How? (Chest pain, [place], [place], pneumonia, PE, COPD, DKA, ARF, appy, cholecystitis, CVA, Diverticulitis, Homicidal, Suicidal, threat to staff... and all critical care pts) @ -Yes - Lab Data Result diagrams: 10/30/23 20:14 10/30/23 20:14 Lab Results 10/30/23 10/30/23 10/30/23 Range/Units 20:12 20:14 20:14 WBC 22.7 H (3.8-10.6) k/uL RBC 4.48 (4.30-5.90) m/uL Hgb 11.2 L (13.0-17.5) gm/dL Hct 34.5 L (39.0-53.0) % MCV 77.1 L (80.0-100.0) fL MCH 25.1 (25.0-35.0) pg MCHC 32.6 (31.0-37.0) g/dL RDW 16.4 H (11.5-15.5) % Plt Count 317 (150-450) k/uL MPV 9.2 Neutrophils % (Manual) 83 % Lymphocytes % (Manual) 8 % Monocytes % (Manual) 9 % Neutrophils # (Manual) 18.84 H (1.3-7.7) k/uL Lymphocytes # (Manual) 1.82 (1.0-4.8) k/uL Monocytes # (Manual) 2.04 H (0-1.0) k/uL Nucleated RBCs 0 (0-0) /100 WBC Manual Slide Review Performed Hypochromasia Moderate Anisocytosis Slight Microcytosis Slight PT 13.0 H (10.0-12.5) sec INR 1.2 H (<1.2) APTT 32.1 H (22.0-30.0) sec Sodium (137-145) mmol/L Potassium (3.5-5.1) mmol/L Chloride (98-107) mmol/L Carbon Dioxide (22-30) mmol/L Anion Gap mmol/L BUN (9-20) mg/dL Creatinine (0.66-1.25) mg/dL Est GFR (CKD-EPI)AfAm (>60 ml/min/1.73 sqM) Est GFR (CKD-EPI)NonAf (>60 ml/min/1.73 sqM) Glucose (74-99) mg/dL POC Glucose (mg/dL) 149 H (70-110) mg/dL POC Glu Economic Historian ID Neri Andrews Calcium (8.4-10.2) mg/dL Total Bilirubin (0.2-1.3) mg/dL AST (17-59) U/L ALT (4-49) U/L Alkaline Phosphatase (38-126) U/L Troponin I (0.000-0.034) ng/mL Total Protein (6.3-8.2) g/dL Albumin (3.5-5.0) g/dL Urine Color Urine Appearance (Clear) Urine pH (5.0-8.0) Ur Specific [place] (1.001-1.035) Urine Protein (Negative) Urine Glucose (UA) (Negative) Urine Ketones (Negative) Urine Blood (Negative) Urine Nitrite (Negative) Urine Bilirubin (Negative) Urine Urobilinogen (<2.0) mg/dL Ur Leukocyte Esterase (Negative) Urine RBC (0-5) /hpf Urine WBC (0-5) /hpf Ur Squamous Epith Cells (0-4) /hpf Urine Bacteria (None) /hpf Influenza Type A (PCR) (Not Detectd) Influenza Type B (PCR) (Not Detectd) RSV (PCR) (Not Detectd) SARS-CoV-2 (PCR) (Not Detectd) 10/30/23 10/30/23 10/30/23 Range/Units 20:14 20:14 20:42 WBC (3.8-10.6) k/uL RBC (4.30-5.90) m/uL Hgb (13.0-17.5) gm/dL Hct (39.0-53.0) % MCV (80.0-100.0) fL MCH (25.0-35.0) pg MCHC (31.0-37.0) g/dL RDW (11.5-15.5) % Plt Count (150-450) k/uL MPV Neutrophils % (Manual) % Lymphocytes % (Manual) % Monocytes % (Manual) % Neutrophils # (Manual) (1.3-7.7) k/uL Lymphocytes # (Manual) (1.0-4.8) k/uL Monocytes # (Manual) (0-1.0) k/uL Nucleated RBCs (0-0) /100 WBC Manual Slide Review Hypochromasia Anisocytosis Microcytosis PT (10.0-12.5) sec INR (<1.2) APTT (22.0-30.0) sec Sodium 137 (137-145) mmol/L Potassium 5.1 (3.5-5.1) mmol/L Chloride 103 (98-107) mmol/L Carbon Dioxide 24 (22-30) mmol/L Anion Gap 10 mmol/L BUN 40 H (9-20) mg/dL Creatinine 2.12 H (0.66-1.25) mg/dL Est GFR (CKD-EPI)AfAm 33 (>60 ml/min/1.73 sqM) Est GFR (CKD-EPI)NonAf 29 (>60 ml/min/1.73 sqM) Glucose 150 H (74-99) mg/dL POC Glucose (mg/dL) (70-110) mg/dL POC Glu Economic Historian ID Calcium 9.0 (8.4-10.2) mg/dL Total Bilirubin 0.6 (0.2-1.3) mg/dL AST 28 (17-59) U/L ALT 15 (4-49) U/L Alkaline Phosphatase 60 (38-126) U/L Troponin I <0.012 (0.000-0.034) ng/mL Total Protein 8.9 H (6.3-8.2) g/dL Albumin 3.9 (3.5-5.0) g/dL Urine Color Light Yellow Urine Appearance Cloudy (Clear) Urine pH 8.0 (5.0-8.0) Ur Specific [place] 1.013 (1.001-1.035) Urine Protein 2+ H (Negative) Urine Glucose (UA) Negative (Negative) Urine Ketones Negative (Negative) Urine Blood Small H (Negative) Urine Nitrite Negative (Negative) Urine Bilirubin Negative (Negative) Urine Urobilinogen <2.0 (<2.0) mg/dL Ur Leukocyte Esterase Large H (Negative) Urine RBC 21 H (0-5) /hpf Urine WBC 51 H (0-5) /hpf Ur Squamous Epith Cells 1 (0-4) /hpf Urine Bacteria Moderate H (None) /hpf Influenza Type A (PCR) (Not Detectd) Influenza Type B (PCR) (Not Detectd) RSV (PCR) (Not Detectd) SARS-CoV-2 (PCR) (Not Detectd) 10/30/23 Range/Units 20:42 WBC (3.8-10.6) k/uL RBC (4.30-5.90) m/uL Hgb (13.0-17.5) gm/dL Hct (39.0-53.0) % MCV (80.0-100.0) fL MCH (25.0-35.0) pg MCHC (31.0-37.0) g/dL RDW (11.5-15.5) % Plt Count (150-450) k/uL MPV Neutrophils % (Manual) % Lymphocytes % (Manual) % Monocytes % (Manual) % Neutrophils # (Manual) (1.3-7.7) k/uL Lymphocytes # (Manual) (1.0-4.8) k/uL Monocytes # (Manual) (0-1.0) k/uL Nucleated RBCs (0-0) /100 WBC Manual Slide Review Hypochromasia Anisocytosis Microcytosis PT (10.0-12.5) sec INR (<1.2) APTT (22.0-30.0) sec Sodium (137-145) mmol/L Potassium (3.5-5.1) mmol/L Chloride (98-107) mmol/L Carbon Dioxide (22-30) mmol/L Anion Gap mmol/L BUN (9-20) mg/dL Creatinine (0.66-1.25) mg/dL Est GFR (CKD-EPI)AfAm (>60 ml/min/1.73 sqM) Est GFR (CKD-EPI)NonAf (>60 ml/min/1.73 sqM) Glucose (74-99) mg/dL POC Glucose (mg/dL) (70-110) mg/dL POC Glu Economic Historian ID Calcium (8.4-10.2) mg/dL Total Bilirubin (0.2-1.3) mg/dL AST (17-59) U/L ALT (4-49) U/L Alkaline Phosphatase (38-126) U/L Troponin I (0.000-0.034) ng/mL Total Protein (6.3-8.2) g/dL Albumin (3.5-5.0) g/dL Urine Color Urine Appearance (Clear) Urine pH (5.0-8.0) Ur Specific [place] (1.001-1.035) Urine Protein (Negative) Urine Glucose (UA) (Negative) Urine Ketones (Negative) Urine Blood (Negative) Urine Nitrite (Negative) Urine Bilirubin (Negative) Urine Urobilinogen (<2.0) mg/dL Ur Leukocyte Esterase (Negative) Urine RBC (0-5) /hpf Urine WBC (0-5) /hpf Ur Squamous Epith Cells (0-4) /hpf Urine Bacteria (None) /hpf Influenza Type A (PCR) Not Detected (Not Detectd) Influenza Type B (PCR) Not Detected (Not Detectd) RSV (PCR) Not Detected (Not Detectd) SARS-CoV-2 (PCR) Not Detected (Not Detectd) Disposition Clinical Impression: UTI (urinary tract infection), Pneumonia, Dehydration, Acute kidney injury, Altered mental status Disposition: ADMITTED IP TO THIS HOSP Condition: Serious Time of Disposition: 23:12
[2023-10-30 21:00] LABS: ALT 15 U/L (4-49); AST 28 U/L (17-59); African American GFR (CKD) 33 (>60 ml/min/1.73 sqM); Albumin 3.9 g/dL (3.5-5.0); Alkaline Phosphatase 60 U/L (38-126); Anion Gap 10 mmol/L; Blood Urea Nitrogen 40 mg/dL (9-20); Carbon Dioxide 24 mmol/L (22-30); Chloride 103 mmol/L (98-107); Glucose 150 mg/dL (74-99); Non-African American GFR(CKD) 29 (>60 ml/min/1.73 sqM); Potassium 5.1 mmol/L (3.5-5.1); Sodium 137 mmol/L (137-145); Total Bilirubin 0.6 mg/dL (0.2-1.3); Total Protein 8.9 g/dL (6.3-8.2)
[2023-10-30 21:02] LABS: INR 1.2 (<1.2); Partial Thromboplastin Time 32.1 sec (22.0-30.0)
[2023-10-30 21:13] LABS: Lymphocytes # (M) 1.82 k/uL (1.0-4.8); Monocytes # (M) 2.04 k/uL (0-1.0); Neutrophils # (M) 18.84 k/uL (1.3-7.7); Neutrophils % (M) 83 %; Nucleated Red Blood Cells 0 /100 WBC (0-0); Total Cells Counted 100
[2023-10-30 21:14] LABS: Appearance,Urine Cloudy (Clear); Bacteria,Urine Moderate /hpf; Bilirubin,Urine Negative (Negative); Blood,Urine Small (Negative); Color,Urine Light Yellow; Glucose,Urine (UA) Negative (Negative); Ketones,Urine Negative (Negative); Leukocyte Esterase,Urine Large (Negative); Nitrite,Urine Negative (Negative); Protein,Urine 2+ (Negative); RBC,Urine 21 /hpf (0-5); Specific Gravity,Urine 1.013 (1.001-1.035); Squamous Epithelial Cell,Urine 1 /hpf (0-4); Urobilinogen,Urine <2.0 mg/dL (<2.0); WBC,Urine 51 /hpf (0-5)
[2023-10-30] MEDS: SODIUM CHLORIDE 0.9% 500 ML 500 ML IV ONE (22:04)
[2023-10-30] MEDS: cefTRIAXone IN SWFI 1,000 MG/10 ML SYRINGE IVP STA (22:04)
--- NOTE | 2023-10-30 22:18 | XR ---
EXAMINATION TYPE: XR chest 2V DATE OF EXAM: 10/30/2023 COMPARISON: Chest x-ray October 10, 2023 HISTORY: Altered mental status TECHNIQUE: Frontal and lateral views of the chest are obtained. FINDINGS: There is bibasilar opacities. No pleural effusion or pneumothorax seen bilaterally. Persi stent cardiomegaly with dual lead pacemaker. Surgical changes cervical spine as partially imaged. IMPRESSION: Cardiomegaly redemonstrated with bibasilar acute infiltrate and/or atelectasis noted on current study.
--- NOTE | 2023-10-30 22:21 | CT ---
EXAMINATION TYPE: CT brain wo con CT DLP: 1250.4 mGycm, Automated exposure control for dose reduction was used. DATE OF EXAM: 10/30/2023 9:51 PM COMPARISON: 09/02/2023 CLINICAL INDICATION:Male, 78 years old with history of Altered mental status, ams TECHNIQUE: Brain: Axial CT images of the brain were obtained with coronal and sagittal reformats created and rev iewed. Contrast used: None. Oral contrast used: None. FINDINGS: Brain: Extra-axial spaces: No abnormal extra-axial fluid collections. Ventricular system: Dilatation in proportion to cerebral atrophy. Cerebral parenchyma: Hypodense area within the left basal ganglia/caudate nucleus. Right fried radia ta deep white matter changes possibly related to prior injury. These findings are similar to 3. Cerebral atrophy. No acute intraparenchymal hemorrhage or mass effect. The tamayo-white junction is we ll differentiated. Scattered hypoattenuating areas are seen within the white matter. Cerebellum: Unremarkable. Mass effect: No evidence of midline shift. Intracranial vasculature: Atherosclerotic calcifications of the intracranial vessels. Soft tissues: Right frontal lobe scalp edema. Calvarium/osseous structures: No depressed skull fracture. Paranasal sinuses and mastoid air cells: Mild scattered paranasal sinus disease. Visualized orbits: Bilateral aphakia IMPRESSION: 1. No acute intracranial process. 2. Right frontal lobe scalp edema. No evidence of fracture. 3. Nonspecific white matter changes, likely secondary to chronic small vessel ischemic disease. 4. Remote left basal ganglia lacunar injury.
[2023-10-30] MEDS: AZITHROMYCIN 500 MG in SODIUM CHLORIDE 0.9% 250 ML IVPB STA (22:43)
[2023-10-30] MEDS ORDERED: NALOXONE 0.4 MG/ML 1 ML VIAL IV PRN (23:07)
[2023-10-30] MEDS: SODIUM CHLORIDE 0.9% 1,000 ML IV SCH (23:17)
[2023-10-31 05:32] LABS: Glucose,Whole Blood 135 mg/dL (70-110)
[2023-10-31] MEDS: INSULIN ASPART (NovoLOG) 100 UNIT/ML VIAL SQ SCH (06:13)
--- NOTE | 2023-10-31 09:02 | US ---
EXAMINATION TYPE: US venous doppler duplex LE RT DATE OF EXAM: 10/31/2023 8:48 AM COMPARISON: 02/17/2023 CLINICAL INDICATION: Male, 78 years old with history of Erythema w/Pitting Edema R Foot; Right leg pa in SIDE PERFORMED: Right TECHNIQUE: The lower extremity deep venous system is examined utilizing real time linear array sonog gurdeep with graded compression, doppler sonography and color-flow sonography. VESSELS IMAGED: Common Femoral Vein Deep Femoral Vein Greater Saphenous Vein * Femoral Vein Popliteal Vein Small Saphenous Vein * Proximal Calf Veins (* superficial vessels) Right Leg: Insurance Customer Service Specialist notes: Thrombus of indeterminant age mid femoral, lower femoral, and poplitea l veins Difficult to scan due to heavily calcified arteries- similar in appearance when compared to prior IMPRESSION: DVT visualized from the mid femoral to popliteal veins. Given relatively smaller vessel c aliber, we favor more chronic rather than acute DVT, but still remains age indeterminate. Clinically correlate. There may have been slight progression compared to 02/17/2023.
[2023-10-31] MEDS ORDERED: DOCUSATE 100 MG CAP PO PRN (10:18)
[2023-10-31 11:50] LABS: Glucose,Whole Blood 108 mg/dL (70-110)
[2023-10-31 11:55] LABS: Basophils # (A) 0.1 k/uL (0-0.2); Basophils % (A) 0 %; Eosinophils # (A) 0.1 k/uL (0-0.7); Eosinophils % (A) 0 %; HCT 29.1 % (39.0-53.0); Hypochromasia Marked; Lymphocytes # (A) 0.9 k/uL (1.0-4.8); Lymphocytes % (A) 4 %; MCH 25.2 pg (25.0-35.0); MCHC 32.1 g/dL (31.0-37.0); MCV 78.4 fL (80.0-100.0); Mean Platelet Volume 9.8; Microcytosis Slight; Monocytes # (A) 1.9 k/uL (0-1.0); Monocytes % (A) 8 %; Neutrophils # (A) 19.3 k/uL (1.3-7.7); Neutrophils % (A) 83 %; Platelet Count 270 k/uL (150-450); RBC 3.71 m/uL (4.30-5.90); WBC 23.1 k/uL (3.8-10.6)
[2023-10-31 11:56] LABS: HGB 9.3 gm/dL (13.0-17.5)
[2023-10-31 12:10] LABS: African American GFR (CKD) 37 (>60 ml/min/1.73 sqM); Anion Gap 7 mmol/L; Blood Urea Nitrogen 38 mg/dL (9-20); Calcium 8.2 mg/dL (8.4-10.2); Carbon Dioxide 25 mmol/L (22-30); Chloride 106 mmol/L (98-107); Glucose 108 mg/dL (74-99); Non-African American GFR(CKD) 32 (>60 ml/min/1.73 sqM); Potassium 4.4 mmol/L (3.5-5.1); Sodium 138 mmol/L (137-145)
[2023-10-31] MEDS ORDERED: VANCOMYCIN IV PER PHARMACY 1 EACH MISC MISCELLANE PRN (13:18)
[2023-10-31] MEDS: APIXABAN 2.5 MG TABLET PO SCH (13:26)
[2023-10-31] MEDS: METOPROLOL TARTRATE 50 MG TAB PO SCH (13:26)
[2023-10-31] MEDS: TAMSULOSIN 0.4 MG CAP.ER.24H PO SCH (13:26)
[2023-10-31 13:40] VITALS: BMI 21.9
--- NOTE | 2023-10-31 13:52 | US ---
EXAMINATION TYPE: US kidneys/renal and bladder DATE OF EXAM: 10/31/2023 COMPARISON: Multiple previous US CLINICAL INDICATION: Male, 78 years old with history of lachelle; LACHELLE EXAM MEASUREMENTS: Right Kidney: 10.8 cm in length cm Left Kidney: 10.9 cm in length cm Right Kidney: Parapelvic cyst upper pole= 1.6 x 1.4 x 2.2 cm, no evidence hydro Left Kidney: No evidence of hydro, limited views due to rib shadow Bladder: Pt has taylor cath in place There is no evidence for hydronephrosis at this point in time. No nephrolithiasis is seen. No no so lid masses are identified. IMPRESSION: No distinct abnormality appreciated although simple cyst parapelvic region right kidney.
--- NOTE | 2023-10-31 14:07 | P.HPIM ---
History of Present Illness H&P Date: 10/31/23 Patient is a 78-year-old male with history of stroke with right-sided weakness, DVT on Eliquis, stage III decubitus ulcer, diabetes, hypertension, dyslipidemia, recurrent UTIs presenting with altered mentation. Patient is a resident of adult foster care. He is also a patient of [facility]. He is a poor historian. Per [facility] TRANSITION SPECIALIST, patient was having increased confusion as well as falling to 1 side of his body. He is mostly bedbound, takes few steps, otherwise uses wheelchair to get around. He has been getting wound care for his sacrum. He also uses a condom cath at night, does not have a indwelling Segura at home. Otherwise no other reported fevers, chills, chest pain, shortness of breath, abdominal pain, nausea, vomiting, urinary or bowel complaints. In the ED patient's temperature was 99.2, pulse 89, respiratory 16, blood pressure 122/63, saturating at 93% on 2 L. Initial WBC was 22.7, hemoglobin 11.2, creatinine 2.12 above baseline which is around 1.45. Urinalysis showed negative nitrites, large leukocyte esterase, moderate bacteria, respiratory viral panel was negative. Troponin negative. Chest x-ray demonstrated bibasilar infiltrate or atelectasis. EKG showed normal sinus rhythm with right bundle branch block. Head CT showed remote left basal ganglia lacunar injury, no acute process. Lower extremity venous Doppler showed chronic DVT on the right side. Patient admitted for acute metabolic encephalopathy, likely secondary to either wrist sacral infection versus urinary tract infection. ID is consulted. Pertinent positives and negatives as discussed in HPI, a complete review of systems was performed and all other systems are negative. Patient seen and examined at bedside. Vital signs reviewed General: nontoxic, no distress, appears at stated age, thin appearing Derm: warm, dry Head: atraumatic, normocephalic, symmetric Eyes: EOMI, no lid lag, anicteric sclera, pupils equal round reactive to light ENT: Nose and ears atraumatic Neck: No thyromegaly, supple Mouth: no lip lesion, mucus membranes moist Cardiovascular: S1S2 reg, no murmur, no edema Lungs: clear to auscultation bilateral, no rhonchi, no rales, no wheeze, no accessory muscle use Abdominal: soft, nontender to palpation, no guarding, no appreciable organomegaly Ext: no gross muscle atrophy, muscle strength 3 out of 5 on the right, no contractures Neuro: CN II-XII grossly intact Psych: Alert, oriented x 2, appropriate affect Assessment/Plan: Active: Severe leukocytosis Suspected urinary tract infection Stage III decubitus ulcer, present on admission Acute metabolic versus septic encephalopathy History of CVA with right-sided deficits -Patient likely has encephalopathy secondary to underlying infection -Started on IV ceftriaxone for suspected urinary tract infection. Patient previously grew Morganella which was sensitive to ceftriaxone. -Also started on IV vancomycin, pharmacy to dose, monitor for renal toxicity -ESR and CRP ordered -Wound care consult and ID consult placed -B12, TSH ordered -Blood cultures and urine cultures pending -If no improvement in mental status, will get neurology involved Hyperglycemia Type 2 diabetes -Previous A1c was 6.9. -On sliding scale insulin, Monitor for hypoglycemia Chronic: Chronic DVT Dyslipidemia Hypertension The patient is admitted with an anticipated greater than 2 midnight stay as inpatient status for evaluation of acute encephalopathy. Surrogate decision-maker: Daughter CODE STATUS: Full code DVT prophylaxis: Eliquis Anticipated discharge date: Pending clinical course Anticipated discharge place: Pending clinical course A total of 55 minutes was spent on the care of this complex patient more than 50% of the time was spent in counseling and care coordination. Past Medical History Past Medical History: CVA/TIA, Diabetes Mellitus, Deep Vein Thrombosis (DVT), Hypertension, Osteoarthritis (OA) Additional Past Medical History / Comment(s): Wound center patient, states has DVT x3 in rt leg, past hx of diabetes and HTN, no longer requires rx since weight loss. states TIA in 2010 residual muscle weakness in rt leg, wears brace rt leg, uti . 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, pacemaker/ACID placed 2017 History of Any Multi-Drug Resistant Organisms: MRSA Date of last positivie culture/infection: 07/29/23 MDRO Source:: Sputum Past Surgical History: Back Surgery, Hernia Repair, Orthopedic Surgery, Pacemaker Additional Past Surgical History / Comment(s): cervical fusion, right hip replacement, cataract surgery, penile implant Past Anesthesia/Blood Transfusion Reactions: No Reported Reaction Type of Cardiac Device: Permanent Pacemaker, AICD, Unknown Device Placement Date:: May 2018 Past Psychological History: No Psychological Hx Reported Smoking Status: Never smoker Past Alcohol Use History: None Reported Past Drug Use History: None Reported - Past Family History Mother Family Medical History: Cancer Father Family Medical History: Cancer, Coronary Artery Disease (CAD) Medications and Allergies Home Medications Medication Instructions Recorded Confirmed Type Atorvastatin [Lipitor] 10 mg PO HS 10/29/18 10/30/23 History Magnesium Oxide 400 mg PO DAILY 07/07/21 10/30/23 History Metoprolol Tartrate [Lopressor] 50 mg PO DAILY 07/07/21 10/30/23 History Tamsulosin [Flomax] 0.4 mg PO BID #0 capsule 09/13/21 10/30/23 Rx L.acidoph,Paracasei, B.lactis 1 cap PO DAILY 11/11/22 10/30/23 History [Probiotic] Calcium Carbonate [Calcium] 600 mg PO BID 01/10/23 10/30/23 History Multivit-Mins/Iron/Folic/Lycop 1 tab PO DAILY 01/10/23 10/30/23 History [Centrum Men's Tablet] Medihoney 100% Topical Paste 1 applic TOPICAL DAILY 06/19/23 10/30/23 History Gabapentin [Neurontin] 300 mg PO BID #6 cap 06/23/23 10/30/23 Rx oxyCODONE-APAP 7.5-325MG [Percocet 1 tab PO TID PRN 07/28/23 10/30/23 History 7.5-325 mg] Acetaminophen Tab [Tylenol] 325 mg PO TID PRN 10/10/23 10/30/23 History Apixaban [Eliquis] 2.5 mg PO BID 10/10/23 10/30/23 History polyethylene glycoL 3350 [Miralax] 17 gm PO Q2D 10/10/23 10/30/23 History Docusate [Colace] 100 mg PO DAILY PRN 10/30/23 10/30/23 History Allergies Allergy/AdvReac Type Severity Reaction Status Date / Time ciprofloxacin [From Cipro] Allergy Unknown Verified 10/10/23 16:13 doxazosin Allergy Unknown Verified 10/10/23 16:13 Physical Exam Vitals: Vital Signs Temp Pulse Pulse Resp BP BP Pulse Ox 10/31/23 07:15 97.9 F 70 21 146/78 97 10/31/23 00:55 98.1 F 85 18 147/81 98 10/31/23 00:01 99.2 F 72 15 116/53 96 10/30/23 23:00 76 18 118/63 95 10/30/23 22:00 78 19 108/59 95 10/30/23 21:00 85 22 122/61 95 10/30/23 20:00 87 16 125/64 93 L 10/30/23 19:49 99.2 F 89 16 122/63 93 L Intake and Output 10/30/23 10/31/23 10/31/23 22:59 06:59 14:59 Output Total 500 Balance -500 Output: Urine 500 Other: Voiding Method External Catheter External Catheter # Voids 1 Weight 81.647 kg 81.647 kg 81.647 kg Results CBC & Chem 7: 10/31/23 11:04 10/31/23 11:04 Labs: Abnormal Lab Results - Last 24 Hours (Table) 10/30/23 10/30/23 10/30/23 Range/Units 20:12 20:14 20:14 WBC 22.7 H (3.8-10.6) k/uL RBC (4.30-5.90) m/uL Hgb 11.2 L (13.0-17.5) gm/dL Hct 34.5 L (39.0-53.0) % MCV 77.1 L (80.0-100.0) fL RDW 16.4 H (11.5-15.5) % Neutrophils # (1.3-7.7) k/uL Neutrophils # (Manual) 18.84 H (1.3-7.7) k/uL Lymphocytes # (1.0-4.8) k/uL Monocytes # (0-1.0) k/uL Monocytes # (Manual) 2.04 H (0-1.0) k/uL PT 13.0 H (10.0-12.5) sec INR 1.2 H (<1.2) APTT 32.1 H (22.0-30.0) sec BUN (9-20) mg/dL Creatinine (0.66-1.25) mg/dL Glucose (74-99) mg/dL POC Glucose (mg/dL) 149 H (70-110) mg/dL Calcium (8.4-10.2) mg/dL Total Protein (6.3-8.2) g/dL Urine Protein (Negative) Urine Blood (Negative) Ur Leukocyte Esterase (Negative) Urine RBC (0-5) /hpf Urine WBC (0-5) /hpf Urine Bacteria (None) /hpf 10/30/23 10/30/23 10/31/23 Range/Units 20:14 20:42 05:31 WBC (3.8-10.6) k/uL RBC (4.30-5.90) m/uL Hgb (13.0-17.5) gm/dL Hct (39.0-53.0) % MCV (80.0-100.0) fL RDW (11.5-15.5) % Neutrophils # (1.3-7.7) k/uL Neutrophils # (Manual) (1.3-7.7) k/uL Lymphocytes # (1.0-4.8) k/uL Monocytes # (0-1.0) k/uL Monocytes # (Manual) (0-1.0) k/uL PT (10.0-12.5) sec INR (<1.2) APTT (22.0-30.0) sec BUN 40 H (9-20) mg/dL Creatinine 2.12 H (0.66-1.25) mg/dL Glucose 150 H (74-99) mg/dL POC Glucose (mg/dL) 135 H (70-110) mg/dL Calcium (8.4-10.2) mg/dL Total Protein 8.9 H (6.3-8.2) g/dL Urine Protein 2+ H (Negative) Urine Blood Small H (Negative) Ur Leukocyte Esterase Large H (Negative) Urine RBC 21 H (0-5) /hpf Urine WBC 51 H (0-5) /hpf Urine Bacteria Moderate H (None) /hpf 10/31/23 10/31/23 Range/Units 11:04 11:04 WBC 23.1 H (3.8-10.6) k/uL RBC 3.71 L (4.30-5.90) m/uL Hgb 9.3 L D (13.0-17.5) gm/dL Hct 29.1 L (39.0-53.0) % MCV 78.4 L (80.0-100.0) fL RDW 16.0 H (11.5-15.5) % Neutrophils # 19.3 H (1.3-7.7) k/uL Neutrophils # (Manual) (1.3-7.7) k/uL Lymphocytes # 0.9 L (1.0-4.8) k/uL Monocytes # 1.9 H (0-1.0) k/uL Monocytes # (Manual) (0-1.0) k/uL PT (10.0-12.5) sec INR (<1.2) APTT (22.0-30.0) sec BUN 38 H (9-20) mg/dL Creatinine 1.92 H (0.66-1.25) mg/dL Glucose 108 H (74-99) mg/dL POC Glucose (mg/dL) (70-110) mg/dL Calcium 8.2 L (8.4-10.2) mg/dL Total Protein (6.3-8.2) g/dL Urine Protein (Negative) Urine Blood (Negative) Ur Leukocyte Esterase (Negative) Urine RBC (0-5) /hpf Urine WBC (0-5) /hpf Urine Bacteria (None) /hpf Thrombosis Risk Factor Assmnt - Choose All That Apply Each Factor Represents 1 point: Serious lung disease incl. pneumonia (< 1month) Each Risk Factor Represents 3 Points: Age 75 years or older Thrombosis Risk Factor Assessment Total Risk Factor Score: 4 Thrombosis Risk Factor Assessment Level: Moderate Risk
[2023-10-31] MEDS: VANCOMYCIN 1,500 MG in SODIUM CHLORIDE 0.9% 500 ML 500 ML IVPB SCH (16:04)
[2023-10-31 16:42] LABS: Glucose,Whole Blood 174 mg/dL (70-110)
[2023-10-31] MEDS: guaiFENesin-DM 100-10MG/5ML 10 ML CUP PO PRN (17:03)
[2023-10-31 19:29] LABS: Glucose,Whole Blood 182 mg/dL (70-110)
[2023-10-31] MEDS: CALCIUM CARBONATE 500 MG CHEWABLE PO SCH (19:57)
[2023-10-31] MEDS: ATORVASTATIN 10 MG TAB PO SCH (19:57)
[2023-11-01 05:50] LABS: Glucose,Whole Blood 123 mg/dL (70-110)
[2023-11-01 07:08] LABS: Basophils # (A) 0.1 k/uL (0-0.2); Basophils % (A) 1 %; Eosinophils # (A) 0.2 k/uL (0-0.7); Eosinophils % (A) 1 %; HCT 32.1 % (39.0-53.0); Hypochromasia Marked; Lymphocytes # (A) 0.8 k/uL (1.0-4.8); Lymphocytes % (A) 4 %; MCHC 31.2 g/dL (31.0-37.0); Mean Platelet Volume 9.9; Monocytes # (A) 1.6 k/uL (0-1.0); Monocytes % (A) 8 %; Neutrophils # (A) 16.4 k/uL (1.3-7.7); Neutrophils % (A) 83 %; Platelet Count 301 k/uL (150-450); RBC 4.01 m/uL (4.30-5.90); RDW 15.9 % (11.5-15.5); WBC 19.7 k/uL (3.8-10.6)
[2023-11-01 08:05] LABS: African American GFR (CKD) 47 (>60 ml/min/1.73 sqM); Non-African American GFR(CKD) 41 (>60 ml/min/1.73 sqM)
[2023-11-01 08:06] LABS: ALT 13 U/L (4-49); AST 23 U/L (17-59); African American GFR (CKD) 47 (>60 ml/min/1.73 sqM); Albumin 3.3 g/dL (3.5-5.0); Albumin/Globulin Ratio 0.7; Alkaline Phosphatase 61 U/L (38-126); Anion Gap 9 mmol/L; Blood Urea Nitrogen 30 mg/dL (9-20); Calcium 8.1 mg/dL (8.4-10.2); Carbon Dioxide 22 mmol/L (22-30); Chloride 107 mmol/L (98-107); Globulin 4.6 g/dL; Glucose 122 mg/dL (74-99); Non-African American GFR(CKD) 41 (>60 ml/min/1.73 sqM); Potassium 4.4 mmol/L (3.5-5.1); Sodium 138 mmol/L (137-145); Total Bilirubin 0.4 mg/dL (0.2-1.3); Total Protein 7.9 g/dL (6.3-8.2)
--- NOTE | 2023-11-01 09:06 | P.CONS ---
History of Present Illness - Reason for Consult Consult date: 10/31/23 UTI versus sacral osteo Requesting physician: Dre Garcia - Chief Complaint Mental status changes x 1 day - History of Present Illness Patient is a 78-year-old male with a past medical history negative for CVA TIA patient is usually bedbound also with history of diabetes mellitus DVT hypertension osteomyelitis patient was brought into the ER for evaluation of altered mental status apparently symptoms started the day the patient was brought into the hospital on arrival to the ER patient did have low-grade fever of 99.2 F patient was not tachycardic hypotensive mildly hypoxic O2 sats of 93% room air is currently on her 2 L nasal cannula oxygen patient did have a white count of 22.7 with a left shift. Creatinine has been mildly elevated liver enzymes are normal urine is positive with large leukocyte esterase 51 WBC influenza RSV COVID testing was negative patient did have a chest x-ray cardiomegaly with bibasilar acute infiltrate or atelectasis patient was started on Rocephin and vancomycin infectious was consulted for further management of an tibiotic therapy. At the time my evaluation the patient is awake and alert in no that he is in the hospital denies having any headache or URI symptoms he did have a congested cough mild to moderate intensity but not bringing up any sputum denies any pleuritic chest pain no nausea no vomiting no abdominal pain no diarrhea patient did have a chronic indwelling Segura catheter that has not been changed the patient has been brought to the hospital also have a sacral pressure ulcer for couple of weeks now he did have some dull aching pain to the area but unable to quantify it any further or any foul-smelling drainage Review of Systems Positive point and negatives has been mentioned in the HPI, complete review of systems was performed and all other systems are negative Past Medical History Past Medical History: CVA/TIA, Diabetes Mellitus, Deep Vein Thrombosis (DVT), Hypertension, Osteoarthritis (OA) Additional Past Medical History / Comment(s): Wound center patient, states has DVT x3 in rt leg, past hx of diabetes and HTN, no longer requires rx since weight loss. states TIA in 2010 residual muscle weakness in rt leg, wears brace rt leg, uti . 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, pacemaker/ACID placed 2017 History of Any Multi-Drug Resistant Organisms: MRSA Year Discovered:: 07/29/23 MDRO Source:: Sputum Past Surgical History: Back Surgery, Hernia Repair, Orthopedic Surgery, Pacemaker Additional Past Surgical History / Comment(s): cervical fusion, right hip replacement, cataract surgery, penile implant Past Anesthesia/Blood Transfusion Reactions: No Reported Reaction Type of Cardiac Device: Permanent Pacemaker, AICD, Unknown Device Placement Date:: May 2018 Past Psychological History: No Psychological Hx Reported Smoking Status: Never smoker Past Alcohol Use History: None Reported Past Drug Use History: None Reported - Past Family History Mother Family Medical History: Cancer Father Family Medical History: Cancer, Coronary Artery Disease (CAD) Medications and Allergies Home Medications Medication Instructions Recorded Confirmed Type Atorvastatin [Lipitor] 10 mg PO HS 10/29/18 10/30/23 History Magnesium Oxide 400 mg PO DAILY 07/07/21 10/30/23 History Metoprolol Tartrate [Lopressor] 50 mg PO DAILY 07/07/21 10/30/23 History Tamsulosin [Flomax] 0.4 mg PO BID #0 capsule 09/13/21 10/30/23 Rx L.acidoph,Paracasei, B.lactis 1 cap PO DAILY 11/11/22 10/30/23 History [Probiotic] Calcium Carbonate [Calcium] 600 mg PO BID 01/10/23 10/30/23 History Multivit-Mins/Iron/Folic/Lycop 1 tab PO DAILY 01/10/23 10/30/23 History [Centrum Men's Tablet] Medihoney 100% Topical Paste 1 applic TOPICAL DAILY 06/19/23 10/30/23 History oxyCODONE-APAP 7.5-325MG [Percocet 1 tab PO TID PRN 07/28/23 10/30/23 History 7.5-325 mg] Acetaminophen Tab [Tylenol] 325 mg PO TID PRN 10/10/23 10/30/23 History Apixaban [Eliquis] 2.5 mg PO BID 10/10/23 10/30/23 History polyethylene glycoL 3350 [Miralax] 17 gm PO Q2D 10/10/23 10/30/23 History Docusate [Colace] 100 mg PO DAILY PRN 10/30/23 10/30/23 History Cefepime [Maxipime] 2 gm IVPB Q12H #28 each 11/06/23 Rx DAPTOmycin [Cubicin] 350 mg IVPB Q24HR@1230 #14 each 11/06/23 Rx amLODIPine [Norvasc] 10 mg PO DAILY #30 tab 11/06/23 Rx Allergies Allergy/AdvReac Type Severity Reaction Status Date / Time ciprofloxacin [From Cipro] Allergy Unknown Verified 10/10/23 16:13 doxazosin Allergy Unknown Verified 10/10/23 16:13 Physical Exam Vitals: Vital Signs Temp Pulse Pulse Resp BP BP Pulse Ox 10/31/23 07:15 97.9 F 70 21 146/78 97 10/31/23 00:55 98.1 F 85 18 147/81 98 10/31/23 00:01 99.2 F 72 15 116/53 96 10/30/23 23:00 76 18 118/63 95 10/30/23 22:00 78 19 108/59 95 10/30/23 21:00 85 22 122/61 95 10/30/23 20:00 87 16 125/64 93 L 10/30/23 19:49 99.2 F 89 16 122/63 93 L Intake and Output 10/30/23 10/31/23 10/31/23 22:59 06:59 14:59 Output Total 500 Balance -500 Output: Urine 500 Other: Voiding Method External Catheter External Catheter # Voids 1 Weight 81.647 kg 81.647 kg 81.647 kg GENERAL DESCRIPTION: Elderly male lying in bed, no distress. No tachypnea or accessory muscle of respiration use. HEENT: Shows Pallor , no scleral icterus. Oral mucous membrane is dry. No pharyngeal erythema or thrush NECK: Trachea central, no thyromegaly. LUNGS: Unlabored breathing. Decreased breath sound at the base HEART: S1, S2, regular rate and rhythm. No loud murmur ABDOMEN: Soft, no tenderness , guarding or rigidity, no organomegaly EXTREMITIES: No edema of feet. SKIN: Patient did have a stage III sacral pressure ulcer with some slough tissue no significant surrounding swelling redness or any foul-smelling drainage NEUROLOGICAL: The patient is awake, alert, oriented x3, mood and affect normal. Results CBC & Chem 7: 11/06/23 07:06 11/06/23 07:06 Labs: Abnormal Lab Results - Last 24 Hours (Table) 10/30/23 10/30/23 10/30/23 Range/Units 20:12 20:14 20:14 WBC 22.7 H (3.8-10.6) k/uL RBC (4.30-5.90) m/uL Hgb 11.2 L (13.0-17.5) gm/dL Hct 34.5 L (39.0-53.0) % MCV 77.1 L (80.0-100.0) fL RDW 16.4 H (11.5-15.5) % Neutrophils # (1.3-7.7) k/uL Neutrophils # (Manual) 18.84 H (1.3-7.7) k/uL Lymphocytes # (1.0-4.8) k/uL Monocytes # (0-1.0) k/uL Monocytes # (Manual) 2.04 H (0-1.0) k/uL PT 13.0 H (10.0-12.5) sec INR 1.2 H (<1.2) APTT 32.1 H (22.0-30.0) sec BUN (9-20) mg/dL Creatinine (0.66-1.25) mg/dL Glucose (74-99) mg/dL POC Glucose (mg/dL) 149 H (70-110) mg/dL Calcium (8.4-10.2) mg/dL C-Reactive Protein (<1.0) mg/dL Total Protein (6.3-8.2) g/dL Urine Protein (Negative) Urine Blood (Negative) Ur Leukocyte Esterase (Negative) Urine RBC (0-5) /hpf Urine WBC (0-5) /hpf Urine Bacteria (None) /hpf 10/30/23 10/30/23 10/31/23 Range/Units 20:14 20:42 05:31 WBC (3.8-10.6) k/uL RBC (4.30-5.90) m/uL Hgb (13.0-17.5) gm/dL Hct (39.0-53.0) % MCV (80.0-100.0) fL RDW (11.5-15.5) % Neutrophils # (1.3-7.7) k/uL Neutrophils # (Manual) (1.3-7.7) k/uL Lymphocytes # (1.0-4.8) k/uL Monocytes # (0-1.0) k/uL Monocytes # (Manual) (0-1.0) k/uL PT (10.0-12.5) sec INR (<1.2) APTT (22.0-30.0) sec BUN 40 H (9-20) mg/dL Creatinine 2.12 H (0.66-1.25) mg/dL Glucose 150 H (74-99) mg/dL POC Glucose (mg/dL) 135 H (70-110) mg/dL Calcium (8.4-10.2) mg/dL C-Reactive Protein (<1.0) mg/dL Total Protein 8.9 H (6.3-8.2) g/dL Urine Protein 2+ H (Negative) Urine Blood Small H (Negative) Ur Leukocyte Esterase Large H (Negative) Urine RBC 21 H (0-5) /hpf Urine WBC 51 H (0-5) /hpf Urine Bacteria Moderate H (None) /hpf 10/31/23 10/31/23 10/31/23 Range/Units 11:04 11:04 11:04 WBC 23.1 H (3.8-10.6) k/uL RBC 3.71 L (4.30-5.90) m/uL Hgb 9.3 L D (13.0-17.5) gm/dL Hct 29.1 L (39.0-53.0) % MCV 78.4 L (80.0-100.0) fL RDW 16.0 H (11.5-15.5) % Neutrophils # 19.3 H (1.3-7.7) k/uL Neutrophils # (Manual) (1.3-7.7) k/uL Lymphocytes # 0.9 L (1.0-4.8) k/uL Monocytes # 1.9 H (0-1.0) k/uL Monocytes # (Manual) (0-1.0) k/uL PT (10.0-12.5) sec INR (<1.2) APTT (22.0-30.0) sec BUN 38 H (9-20) mg/dL Creatinine 1.92 H (0.66-1.25) mg/dL Glucose 108 H (74-99) mg/dL POC Glucose (mg/dL) (70-110) mg/dL Calcium 8.2 L (8.4-10.2) mg/dL C-Reactive Protein 17.0 H (<1.0) mg/dL Total Protein (6.3-8.2) g/dL Urine Protein (Negative) Urine Blood (Negative) Ur Leukocyte Esterase (Negative) Urine RBC (0-5) /hpf Urine WBC (0-5) /hpf Urine Bacteria (None) /hpf Assessment and Plan (1) Type 2 diabetes mellitus with other skin ulcer Current Visit: Yes Status: Acute Code(s): E11.622 - TYPE 2 DIABETES MELLITUS WITH OTHER SKIN ULCER; L98.499 - NON-PRESSURE CHRONIC ULCER OF SKIN OF SITES W UNSP SEVERITY SNOMED Code(s): 415851241 (2) UTI (urinary tract infection) Current Visit: Yes Status: Acute Code(s): N39.0 - URINARY TRACT INFECTION, SITE NOT SPECIFIED SNOMED Code(s): 11502524 (3) Leukocytosis Current Visit: No Status: Acute Code(s): D72.829 - ELEVATED WHITE BLOOD CELL COUNT, UNSPECIFIED SNOMED Code(s): 458888132 (4) Stage III pressure ulcer of sacral region Current Visit: No Status: Acute Code(s): L89.153 - PRESSURE ULCER OF SACRAL REGION, STAGE 3 SNOMED Code(s): 04748769093960 Plan: 1patient presented to hospital with weakness mental status changes which is li cali multifactorial concern for possible CAP versus UTI however the patient also have a congested cough and noticed to have a bibasilar infiltrate possible component of pneumonia not entirely excluded 2-patient did have a stage III sacral pressure ulcer with some slough tissue but no significant surrounding redness or foul-smelling drainage to be suspicious for wound infection 3-try to obtain a sputum for Gram stain culture check a CRP and a procalcitonin 4-continue with Rocephin and vancomycin however we will need to watch his kidney function closely because of his elevated creatinine 5-local wound care to the sacral wound with Santyl followed by moist dressing change daily keep the area of the pressure We will follow on clinical condition and cultures to further adjust medication if needed Thank you for this consultation we will follow the patient along with you Dictation was produced using [employer] software. please excuse any grammatical, word or spelling errors. Time with Patient: Greater than 30
[2023-11-01 11:43] LABS: Glucose,Whole Blood 123 mg/dL (70-110)
[2023-11-01] MEDS: amLODIPine 10 MG TAB PO SCH (13:03)
--- NOTE | 2023-11-01 13:27 | P.PN ---
Subjective Progress Note Date: 11/01/23 Hospital Course: 78-year-old male with history of stroke with right-sided weakness, DVT on Eliquis, stage III decubitus ulcer, diabetes, hypertension, dyslipidemia, recurrent UTIs presenting with altered mentation. In the ED patient's temperature was 99.2, pulse 89, respiratory 16, blood pressure 122/63, saturating at 93% on 2 L. Initial WBC was 22.7, hemoglobin 11.2, creatinine 2.12 above baseline which is around 1.45. Urinalysis showed negative nitrites, large leukocyte esterase, moderate bacteria, respiratory viral panel was negative. Troponin negative. Chest x-ray demonstrated bibasilar infiltrate or atelectasis. EKG showed normal sinus rhythm with right bundle branch block. Head CT showed remote left basal ganglia lacunar injury, no acute process. Lower extremity venous Doppler showed chronic DVT on the right side. Patient admitted for acute metabolic encephalopathy, likely secondary to pneumonia versus urinary tract infection. ID is consulted. Currently on IV antibiotics. Subjective: Patient seen and examined at bedside. No acute events overnight. Pertinent positives and negatives as discussed above, a complete review of systems was performed and all other systems are negative. Vitals Signs Reviewed. General: Nontoxic, no distress, appears at stated age Derm: Warm, dry, back not observed Head: Atraumatic, normocephalic, symmetric Eyes: EOMI, no lid lag, anicteric sclera Mouth: No lip lesion, mucus membranes moist Cardiovascular: S1S2 reg, no murmur Lungs: CTA bilateral, no rhonchi, no rales, no accessory muscle use Abdominal: Soft, nontender to palpation, no guarding, no appreciable organomegaly Ext: muscle strength 3 out of 5 on the right Neuro: CN II-XI grossly intact Psych: Alert, oriented x1, appropriate affect Data Reviewed Today: Pertinent Labs: WBC 19.7, hemoglobin 10, creatinine 1.59, glucose range between 1 22-1 82, TSH 0.822 Imaging: Assessment and Plan: Patient is severely ill, prognosis guarded Severe leukocytosis urinary tract infection Bacterial pneumonia Stage III decubitus ulcer, present on admission, not infected Acute metabolic versus septic encephalopathy History of CVA with right-sided deficits -Patient likely has encephalopathy secondary to underlying infection -Started on IV ceftriaxone for suspected urinary tract infection. Patient previously grew Morganella which was sensitive to ceftriaxone. -Also started on IV vancomycin, pharmacy to dose, monitor for renal toxicity -Wound care has been consulted -ID note reviewed, unlikely to be sacral wound infection, possible pneumonia versus urinary tract infection, urine culture growing gram-negative bacilli -B12 pending -Blood cultures and urine cultures pending -If no improvement in mental status, will get neurology involved Hyperglycemia Type 2 diabetes -Previous A1c was 6.9. -On sliding scale insulin, Monitor for hypoglycemia Hypertension -Started on amlodipine 10 mg daily Chronic: Chronic DVT Dyslipidemia DVT ppx: Eliquis Code status: Full code Anticipated discharge place: Pending clinical course Anticipated discharge time: Pending clinical course Objective - Vital Signs Vital signs: Vital Signs Temp 99.4 F 11/01/23 07:00 Pulse 99 11/01/23 07:00 Resp 20 11/01/23 07:00 BP 183/72 11/01/23 07:00 Pulse Ox 95 11/01/23 07:00 FiO2 Intake & Output 10/31/23 11/01/23 11/01/23 18:59 06:59 18:59 Intake Total 1450 240 Output Total 450 Balance 1450 -210 Weight 81.647 kg Intake: Intake, IV Titration 1450 Amount Sodium Chloride 0.9% 1, 900 000 ml @ 75 mls/hr IV . [id number] [facility] Rx#:[id number] Vancomycin 1,500 mg In 500 Sodium Chloride 0.9% 500 ml 500 ml @ 167 mls/hr IVPB Q24H [facility] Rx#: [id number] cefTRIAXone 2 gm In 50 Sodium Chloride 0.9% 50 ml @ 100 mls/hr IVPB Q24HR [facility] Rx#:[id number] Oral 240 Output: Urine 450 Other: Voiding Method External Catheter External Catheter Incontinent - Labs CBC & Chem 7: 11/01/23 06:38 11/01/23 06:38 Labs: Abnormal Lab Results - Last 24 Hours (Table) 10/31/23 10/31/23 10/31/23 Range/Units 11:04 11:04 16:40 WBC (3.8-10.6) k/uL RBC (4.30-5.90) m/uL Hgb (13.0-17.5) gm/dL Hct (39.0-53.0) % RDW (11.5-15.5) % Neutrophils # (1.3-7.7) k/uL Lymphocytes # (1.0-4.8) k/uL Monocytes # (0-1.0) k/uL ESR 75 H (0-20) mm/Hr BUN (9-20) mg/dL Creatinine (0.66-1.25) mg/dL Glucose (74-99) mg/dL POC Glucose (mg/dL) 174 H (70-110) mg/dL Calcium (8.4-10.2) mg/dL C-Reactive Protein 17.0 H (<1.0) mg/dL Albumin (3.5-5.0) g/dL 10/31/23 11/01/23 11/01/23 Range/Units 19:28 05:49 06:38 WBC (3.8-10.6) k/uL RBC (4.30-5.90) m/uL Hgb (13.0-17.5) gm/dL Hct (39.0-53.0) % RDW (11.5-15.5) % Neutrophils # (1.3-7.7) k/uL Lymphocytes # (1.0-4.8) k/uL Monocytes # (0-1.0) k/uL ESR (0-20) mm/Hr BUN (9-20) mg/dL Creatinine 1.58 H (0.66-1.25) mg/dL Glucose (74-99) mg/dL POC Glucose (mg/dL) 182 H 123 H (70-110) mg/dL Calcium (8.4-10.2) mg/dL C-Reactive Protein (<1.0) mg/dL Albumin (3.5-5.0) g/dL 11/01/23 11/01/23 11/01/23 Range/Units 06:38 06:38 11:42 WBC 19.7 H (3.8-10.6) k/uL RBC 4.01 L (4.30-5.90) m/uL Hgb 10.0 L (13.0-17.5) gm/dL Hct 32.1 L (39.0-53.0) % RDW 15.9 H (11.5-15.5) % Neutrophils # 16.4 H (1.3-7.7) k/uL Lymphocytes # 0.8 L (1.0-4.8) k/uL Monocytes # 1.6 H (0-1.0) k/uL ESR (0-20) mm/Hr BUN 30 H (9-20) mg/dL Creatinine 1.59 H (0.66-1.25) mg/dL Glucose 122 H (74-99) mg/dL POC Glucose (mg/dL) 123 H (70-110) mg/dL Calcium 8.1 L (8.4-10.2) mg/dL C-Reactive Protein (<1.0) mg/dL Albumin 3.3 L (3.5-5.0) g/dL Microbiology - Last 24 Hours (Table) 10/30/23 20:25 Blood Culture - Preliminary Blood 10/30/23 20:40 Blood Culture - Preliminary Blood 10/30/23 20:42 Urine Culture - Preliminary Urine,Clean Catch Gram Neg Bacilli
[2023-11-01 16:50] LABS: Glucose,Whole Blood 162 mg/dL (70-110)
[2023-11-01 20:41] LABS: Glucose,Whole Blood 174 mg/dL (70-110)
[2023-11-02] MEDS: ONDANSETRON 4 MG/2 ML VIAL IVP STA (00:03)
[2023-11-02 06:16] LABS: Glucose,Whole Blood 128 mg/dL (70-110)
[2023-11-02 08:18] LABS: African American GFR (CKD) 61 (>60 ml/min/1.73 sqM); Non-African American GFR(CKD) 53 (>60 ml/min/1.73 sqM)
[2023-11-02 08:35] LABS: Anisocytosis Slight; Basophils # (A) 0.1 k/uL (0-0.2); Basophils % (A) 1 %; Eosinophils # (A) 0.1 k/uL (0-0.7); Eosinophils % (A) 1 %; HCT 32.4 % (39.0-53.0); HGB 10.1 gm/dL (13.0-17.5); Hypochromasia Marked; Lymphocytes # (A) 0.7 k/uL (1.0-4.8); Lymphocytes % (A) 5 %; MCH 24.9 pg (25.0-35.0); MCHC 31.1 g/dL (31.0-37.0); MCV 79.9 fL (80.0-100.0); Mean Platelet Volume 9.9; Microcytosis Slight; Monocytes # (A) 1.4 k/uL (0-1.0); Monocytes % (A) 9 %; Neutrophils # (A) 12.6 k/uL (1.3-7.7); Neutrophils % (A) 81 %; Platelet Count 296 k/uL (150-450); RBC 4.06 m/uL (4.30-5.90); RDW 16.3 % (11.5-15.5); WBC 15.5 k/uL (3.8-10.6)
[2023-11-02 09:05] LABS: African American GFR (CKD) 61 (>60 ml/min/1.73 sqM); Anion Gap 11 mmol/L; Blood Urea Nitrogen 22 mg/dL (9-20); Carbon Dioxide 19 mmol/L (22-30); Chloride 111 mmol/L (98-107); Glucose 118 mg/dL (74-99); Non-African American GFR(CKD) 53 (>60 ml/min/1.73 sqM); Potassium 4.3 mmol/L (3.5-5.1); Sodium 141 mmol/L (137-145)
--- NOTE | 2023-11-02 09:11 | P.PN ---
Subjective Progress Note Date: 11/01/23 Principal diagnosis: Reason for follow-up is UTI/pneumonia and a sacral pressure ulcer Patient is a 78-year-old male with a past medical history negative for CVA TIA patient is usually bedbound also with history of diabetes mellitus DVT hypertension osteomyelitis patient was brought into the ER for evaluation of altered mental status, patient noticed to have elevated white count low-grade fever positive UA and also with evidence of bibasilar infiltrate in addition to stage III sacral pressure ulcer. On today's evaluation that is 11/01/2023, the patient denies having any fever or any chills, patient is breathing comfortably on 2 L nasal cannula oxygen, the patient denies having any chest pain shortness of breath , Pt did have occasional cough but not bringing up any sputum patient denies having any nausea vomiting diarrhea and abdominal pain. Patient white count is down to 19.7 cultures currently pending Objective - Vital Signs Vital signs: Vital Signs Temp 99.4 F 11/01/23 07:00 Pulse 99 11/01/23 07:00 Resp 20 11/01/23 07:00 BP 183/72 11/01/23 07:00 Pulse Ox 95 11/01/23 07:00 FiO2 Intake & Output 10/31/23 11/01/23 11/01/23 18:59 06:59 18:59 Intake Total 1450 240 Output Total 450 Balance 1450 -210 Weight 81.647 kg Intake: Intake, IV Titration 1450 Amount Sodium Chloride 0.9% 1, 900 000 ml @ 75 mls/hr IV . [id number] [facility] Rx#:[id number] Vancomycin 1,500 mg In 500 Sodium Chloride 0.9% 500 ml 500 ml @ 167 mls/hr IVPB Q24H [facility] Rx#: [id number] cefTRIAXone 2 gm In 50 Sodium Chloride 0.9% 50 ml @ 100 mls/hr IVPB Q24HR [facility] Rx#:[id number] Oral 240 Output: Urine 450 Other: Voiding Method External Catheter External Catheter Incontinent - Exam GENERAL DESCRIPTION: An elderly male lying in bed in no distress RESPIRATORY SYSTEM: Unlabored breathing , decreased breath sounds at bases HEART: S1 S2 regular rate and rhythm , ABDOMEN: Soft , no tenderness EXTREMITIES: No edema feet - Labs CBC & Chem 7: 11/02/23 06:59 11/02/23 06:59 Labs: Abnormal Lab Results - Last 24 Hours (Table) 10/31/23 10/31/23 10/31/23 Range/Units 11:04 11:04 11:04 WBC 23.1 H (3.8-10.6) k/uL RBC 3.71 L (4.30-5.90) m/uL Hgb 9.3 L D (13.0-17.5) gm/dL Hct 29.1 L (39.0-53.0) % MCV 78.4 L (80.0-100.0) fL RDW 16.0 H (11.5-15.5) % Neutrophils # 19.3 H (1.3-7.7) k/uL Lymphocytes # 0.9 L (1.0-4.8) k/uL Monocytes # 1.9 H (0-1.0) k/uL ESR 75 H (0-20) mm/Hr BUN 38 H (9-20) mg/dL Creatinine 1.92 H (0.66-1.25) mg/dL Glucose 108 H (74-99) mg/dL POC Glucose (mg/dL) (70-110) mg/dL Calcium 8.2 L (8.4-10.2) mg/dL C-Reactive Protein (<1.0) mg/dL Albumin (3.5-5.0) g/dL 10/31/23 10/31/23 10/31/23 Range/Units 11:04 16:40 19:28 WBC (3.8-10.6) k/uL RBC (4.30-5.90) m/uL Hgb (13.0-17.5) gm/dL Hct (39.0-53.0) % MCV (80.0-100.0) fL RDW (11.5-15.5) % Neutrophils # (1.3-7.7) k/uL Lymphocytes # (1.0-4.8) k/uL Monocytes # (0-1.0) k/uL ESR (0-20) mm/Hr BUN (9-20) mg/dL Creatinine (0.66-1.25) mg/dL Glucose (74-99) mg/dL POC Glucose (mg/dL) 174 H 182 H (70-110) mg/dL Calcium (8.4-10.2) mg/dL C-Reactive Protein 17.0 H (<1.0) mg/dL Albumin (3.5-5.0) g/dL 11/01/23 11/01/23 11/01/23 Range/Units 05:49 06:38 06:38 WBC 19.7 H (3.8-10.6) k/uL RBC 4.01 L (4.30-5.90) m/uL Hgb 10.0 L (13.0-17.5) gm/dL Hct 32.1 L (39.0-53.0) % MCV (80.0-100.0) fL RDW 15.9 H (11.5-15.5) % Neutrophils # 16.4 H (1.3-7.7) k/uL Lymphocytes # 0.8 L (1.0-4.8) k/uL Monocytes # 1.6 H (0-1.0) k/uL ESR (0-20) mm/Hr BUN (9-20) mg/dL Creatinine 1.58 H (0.66-1.25) mg/dL Glucose (74-99) mg/dL POC Glucose (mg/dL) 123 H (70-110) mg/dL Calcium (8.4-10.2) mg/dL C-Reactive Protein (<1.0) mg/dL Albumin (3.5-5.0) g/dL 11/01/23 Range/Units 06:38 WBC (3.8-10.6) k/uL RBC (4.30-5.90) m/uL Hgb (13.0-17.5) gm/dL Hct (39.0-53.0) % MCV (80.0-100.0) fL RDW (11.5-15.5) % Neutrophils # (1.3-7.7) k/uL Lymphocytes # (1.0-4.8) k/uL Monocytes # (0-1.0) k/uL ESR (0-20) mm/Hr BUN 30 H (9-20) mg/dL Creatinine 1.59 H (0.66-1.25) mg/dL Glucose 122 H (74-99) mg/dL POC Glucose (mg/dL) (70-110) mg/dL Calcium 8.1 L (8.4-10.2) mg/dL C-Reactive Protein (<1.0) mg/dL Albumin 3.3 L (3.5-5.0) g/dL Microbiology - Last 24 Hours (Table) 10/30/23 20:25 Blood Culture - Preliminary Blood 10/30/23 20:40 Blood Culture - Preliminary Blood 10/30/23 20:42 Urine Culture - Preliminary Urine,Clean Catch Gram Neg Bacilli Assessment and Plan (1) Pneumonia Current Visit: Yes Status: Acute Code(s): J18.9 - PNEUMONIA, UNSPECIFIED ORGANISM SNOMED Code(s): 727312009 (2) UTI (urinary tract infection) Current Visit: Yes Status: Acute Code(s): N39.0 - URINARY TRACT INFECTION, SITE NOT SPECIFIED SNOMED Code(s): 27057590 (3) Stage III pressure ulcer of sacral region Current Visit: No Status: Acute Code(s): L89.153 - PRESSURE ULCER OF SACRAL REGION, STAGE 3 SNOMED Code(s): 90446373414177 Plan: 1patient presented to hospital with weakness mental status changes which is likely multifactorial concern for possible CAP versus UTI however the patient also have a congested cough and noticed to have a bibasilar infiltrate possible component of pneumonia not entirely excluded 2-patient did have a stage III sacral pressure ulcer with some slough tissue but no significant surrounding redness or foul-smelling drainage to be suspicious for wound infection 3-try to obtain a sputum for Gram stain culture, awaiting procalcitonin, urine is growing gram-negative blood pressure for pending 4-patient to continue with Rocephin and vancomycin while waiting for the culture to finalize 5-local wound care to the sacral wound with Santyl followed by moist dressing change daily keep the area of the pressure Dictation was produced using [employer] dictation software. please excuse any grammatical, word or spelling errors. Time with Patient: Less than 30
--- NOTE | 2023-11-02 11:30 | P.PN ---
Subjective Progress Note Date: 11/02/23 Hospital Course: 78-year-old male with history of stroke with right-sided weakness, DVT on Eliquis, stage III decubitus ulcer, diabetes, hypertension, dyslipidemia, recurrent UTIs presenting with altered mentation. In the ED patient's temperature was 99.2, pulse 89, respiratory 16, blood pressure 122/63, saturating at 93% on 2 L. Initial WBC was 22.7, hemoglobin 11.2, creatinine 2.12 above baseline which is around 1.45. Urinalysis showed negative nitrites, large leukocyte esterase, moderate bacteria, respiratory viral panel was negative. Troponin negative. Chest x-ray demonstrated bibasilar infiltrate or atelectasis. EKG showed normal sinus rhythm with right bundle branch block. Head CT showed remote left basal ganglia lacunar injury, no acute process. Lower extremity venous Doppler showed chronic DVT on the right side. Patient admitted for acute metabolic encephalopathy, likely secondary to pneumonia versus urinary tract infection. ID is consulted. Currently on IV antibiotics. Subjective: Patient seen and examined at bedside. No acute events overnight. Pertinent positives and negatives as discussed above, a complete review of systems was performed and all other systems are negative. Vitals Signs Reviewed. General: Nontoxic, no distress, appears at stated age Derm: Warm, dry, back not observed Head: Atraumatic, normocephalic, symmetric Eyes: EOMI, no lid lag, anicteric sclera Mouth: No lip lesion, mucus membranes moist Cardiovascular: S1S2 reg, no murmur Lungs: CTA bilateral, no rhonchi, no rales, no accessory muscle use Abdominal: Soft, nontender to palpation, no guarding, no appreciable organomegaly Ext: muscle strength 3 out of 5 on the right Neuro: CN II-XI grossly intact Psych: Alert, oriented x1, appropriate affect Data Reviewed Today: Pertinent Labs: WBC 15.5, hemoglobin 10.1, bicarb 19, creatinine 1.27, blood sugars range between 1 18-1 74 Imaging: No new imaging Assessment and Plan: Patient is severely ill, prognosis guarded Severe leukocytosis, improving urinary tract infection Bacterial pneumonia Stage III decubitus ulcer, present on admission, not infected Acute metabolic versus septic encephalopathy History of CVA with right-sided deficits -Patient likely has encephalopathy secondary to underlying infection -Continue on IV ceftriaxone 2 g every 24 hours, urine cultures growing gram- negative bacilli, await for final cultures -Continue on IV vancomycin, pharmacy to dose, monitor for renal toxicity -Wound care has been consulted -ID following unlikely to be sacral wound infection, possible pneumonia versus urinary tract infection, continue current antibiotics Hyperglycemia Type 2 diabetes -Previous A1c was 6.9. -On sliding scale insulin, Monitor for hypoglycemia Hypertension -continue amlodipine 10 mg daily Chronic: Chronic DVT Dyslipidemia DVT ppx: Eliquis Code status: Full code Anticipated discharge place: Pending clinical course Anticipated discharge time: Pending clinical course Objective - Vital Signs Vital signs: Vital Signs Temp 99.4 F 11/02/23 07:15 Pulse 86 11/02/23 07:15 Resp 19 11/02/23 07:15 BP 171/80 11/02/23 07:15 Pulse Ox 96 11/02/23 08:05 FiO2 Intake & Output 11/01/23 11/02/23 11/02/23 18:59 06:59 18:59 Output Total 1100 800 Balance -1100 -800 Output: Urine 1100 800 Other: Voiding Method Incontinent External Catheter # Bowel Movements 1 2 - Labs CBC & Chem 7: 11/02/23 06:59 11/02/23 06:59 Labs: Abnormal Lab Results - Last 24 Hours (Table) 11/01/23 11/01/23 11/01/23 Range/Units 06:38 11:42 16:48 WBC (3.8-10.6) k/uL RBC (4.30-5.90) m/uL Hgb (13.0-17.5) gm/dL Hct (39.0-53.0) % MCV (80.0-100.0) fL MCH (25.0-35.0) pg RDW (11.5-15.5) % Neutrophils # (1.3-7.7) k/uL Lymphocytes # (1.0-4.8) k/uL Monocytes # (0-1.0) k/uL Chloride (98-107) mmol/L Carbon Dioxide (22-30) mmol/L BUN (9-20) mg/dL Creatinine (0.66-1.25) mg/dL Glucose (74-99) mg/dL POC Glucose (mg/dL) 123 H 162 H (70-110) mg/dL Calcium (8.4-10.2) mg/dL Vitamin B12 1035.0 H (200.0-944.0) pg/mL 11/01/23 11/02/23 11/02/23 Range/Units 20:40 06:15 06:59 WBC (3.8-10.6) k/uL RBC (4.30-5.90) m/uL Hgb (13.0-17.5) gm/dL Hct (39.0-53.0) % MCV (80.0-100.0) fL MCH (25.0-35.0) pg RDW (11.5-15.5) % Neutrophils # (1.3-7.7) k/uL Lymphocytes # (1.0-4.8) k/uL Monocytes # (0-1.0) k/uL Chloride (98-107) mmol/L Carbon Dioxide (22-30) mmol/L BUN (9-20) mg/dL Creatinine 1.28 H (0.66-1.25) mg/dL Glucose (74-99) mg/dL POC Glucose (mg/dL) 174 H 128 H (70-110) mg/dL Calcium (8.4-10.2) mg/dL Vitamin B12 (200.0-944.0) pg/mL 11/02/23 11/02/23 Range/Units 06:59 06:59 WBC 15.5 H (3.8-10.6) k/uL RBC 4.06 L (4.30-5.90) m/uL Hgb 10.1 L (13.0-17.5) gm/dL Hct 32.4 L (39.0-53.0) % MCV 79.9 L (80.0-100.0) fL MCH 24.9 L (25.0-35.0) pg RDW 16.3 H (11.5-15.5) % Neutrophils # 12.6 H (1.3-7.7) k/uL Lymphocytes # 0.7 L (1.0-4.8) k/uL Monocytes # 1.4 H (0-1.0) k/uL Chloride 111 H (98-107) mmol/L Carbon Dioxide 19 L (22-30) mmol/L BUN 22 H (9-20) mg/dL Creatinine 1.27 H (0.66-1.25) mg/dL Glucose 118 H (74-99) mg/dL POC Glucose (mg/dL) (70-110) mg/dL Calcium 8.0 L (8.4-10.2) mg/dL Vitamin B12 (200.0-944.0) pg/mL Microbiology - Last 24 Hours (Table) 10/30/23 20:25 Blood Culture - Preliminary Blood 10/30/23 20:40 Blood Culture - Preliminary Blood
[2023-11-02 11:46] LABS: Glucose,Whole Blood 119 mg/dL (70-110)
--- NOTE | 2023-11-02 16:20 | P.PN ---
Subjective Progress Note Date: 11/02/23 Principal diagnosis: Reason for follow-up is UTI/pneumonia and a sacral pressure ulcer Patient is a 78-year-old male with a past medical history negative for CVA TIA patient is usually bedbound also with history of diabetes mellitus DVT hypertension osteomyelitis patient was brought into the ER for evaluation of altered mental status, patient noticed to have elevated white count low-grade fever positive UA and also with evidence of bibasilar infiltrate in addition to stage III sacral pressure ulcer. On today's evaluation that is 11/02/2023, the patient remains to be afebrile, patient is breathing comfortably on 2 L nasal cannula supplemental oxygen, the patient denies chest pain shortness of breath cough is decreased intensity mostly dry nature, patient denies abdominal pain and no nausea vomiting or diarrhea. Patient white count is down to 15.5, creatinine is 1.27 urine is growing gram- negative blood culture negative so far Objective - Vital Signs Vital signs: Vital Signs Temp 98.2 F 11/02/23 13:26 Pulse 74 11/02/23 13:26 Resp 19 11/02/23 13:26 BP 180/68 11/02/23 13:26 Pulse Ox 96 11/02/23 13:26 FiO2 Intake & Output 11/01/23 11/02/23 11/02/23 18:59 06:59 18:59 Output Total 1100 800 Balance -1100 -800 Output: Urine 1100 800 Other: Voiding Method Incontinent External Catheter # Bowel Movements 1 2 - Exam GENERAL DESCRIPTION: An elderly male lying in bed in no distress RESPIRATORY SYSTEM: Unlabored breathing , decreased breath sounds at bases HEART: S1 S2 regular rate and rhythm , ABDOMEN: Soft , no tenderness EXTREMITIES: No edema feet - Labs CBC & Chem 7: 11/02/23 06:59 11/02/23 06:59 Labs: Abnormal Lab Results - Last 24 Hours (Table) 11/01/23 11/01/23 11/01/23 Range/Units 06:38 16:48 20:40 WBC (3.8-10.6) k/uL RBC (4.30-5.90) m/uL Hgb (13.0-17.5) gm/dL Hct (39.0-53.0) % MCV (80.0-100.0) fL MCH (25.0-35.0) pg RDW (11.5-15.5) % Neutrophils # (1.3-7.7) k/uL Lymphocytes # (1.0-4.8) k/uL Monocytes # (0-1.0) k/uL Chloride (98-107) mmol/L Carbon Dioxide (22-30) mmol/L BUN (9-20) mg/dL Creatinine (0.66-1.25) mg/dL Glucose (74-99) mg/dL POC Glucose (mg/dL) 162 H 174 H (70-110) mg/dL Calcium (8.4-10.2) mg/dL Vitamin B12 1035.0 H (200.0-944.0) pg/mL 11/02/23 11/02/23 11/02/23 Range/Units 06:15 06:59 06:59 WBC 15.5 H (3.8-10.6) k/uL RBC 4.06 L (4.30-5.90) m/uL Hgb 10.1 L (13.0-17.5) gm/dL Hct 32.4 L (39.0-53.0) % MCV 79.9 L (80.0-100.0) fL MCH 24.9 L (25.0-35.0) pg RDW 16.3 H (11.5-15.5) % Neutrophils # 12.6 H (1.3-7.7) k/uL Lymphocytes # 0.7 L (1.0-4.8) k/uL Monocytes # 1.4 H (0-1.0) k/uL Chloride (98-107) mmol/L Carbon Dioxide (22-30) mmol/L BUN (9-20) mg/dL Creatinine 1.28 H (0.66-1.25) mg/dL Glucose (74-99) mg/dL POC Glucose (mg/dL) 128 H (70-110) mg/dL Calcium (8.4-10.2) mg/dL Vitamin B12 (200.0-944.0) pg/mL 11/02/23 11/02/23 Range/Units 06:59 11:45 WBC (3.8-10.6) k/uL RBC (4.30-5.90) m/uL Hgb (13.0-17.5) gm/dL Hct (39.0-53.0) % MCV (80.0-100.0) fL MCH (25.0-35.0) pg RDW (11.5-15.5) % Neutrophils # (1.3-7.7) k/uL Lymphocytes # (1.0-4.8) k/uL Monocytes # (0-1.0) k/uL Chloride 111 H (98-107) mmol/L Carbon Dioxide 19 L (22-30) mmol/L BUN 22 H (9-20) mg/dL Creatinine 1.27 H (0.66-1.25) mg/dL Glucose 118 H (74-99) mg/dL POC Glucose (mg/dL) 119 H (70-110) mg/dL Calcium 8.0 L (8.4-10.2) mg/dL Vitamin B12 (200.0-944.0) pg/mL Microbiology - Last 24 Hours (Table) 10/30/23 20:25 Blood Culture - Preliminary Blood 10/30/23 20:40 Blood Culture - Preliminary Blood Assessment and Plan (1) Pneumonia Current Visit: Yes Status: Acute Code(s): J18.9 - PNEUMONIA, UNSPECIFIED ORGANISM SNOMED Code(s): 310894228 (2) UTI (urinary tract infection) Current Visit: Yes Status: Acute Code(s): N39.0 - URINARY TRACT INFECTION, SITE NOT SPECIFIED SNOMED Code(s): 07803752 (3) Stage III pressure ulcer of sacral region Current Visit: No Status: Acute Code(s): L89.153 - PRESSURE ULCER OF SACRAL REGION, STAGE 3 SNOMED Code(s): 09960900149146 Plan: 1patient presented to hospital with weakness mental status changes which is likely multifactorial concern for possible CAP versus UTI however the patient also have a congested cough and noticed to have a bibasilar infiltrate possible component of pneumonia not entirely excluded 2-patient did have a stage III sacral pressure ulcer with some slough tissue but no significant surrounding redness or foul-smelling drainage to be suspicious for wound infection 3-patient urine is growing gram-negative blood cultures currently pending 4-local wound care to the sacral wound with Medihoney followed by moist dressing change daily keep the area of the pressure 5-patient to continue with Rocephin and vancomycin while waiting for the culture to finalize Dictation was produced using [employer] dictation software. please excuse any grammatical, word or spelling errors. Time with Patient: Less than 30
[2023-11-02 16:41] LABS: Glucose,Whole Blood 150 mg/dL (70-110)
[2023-11-02 20:06] LABS: Glucose,Whole Blood 218 mg/dL (70-110)
[2023-11-03 05:49] LABS: Glucose,Whole Blood 104 mg/dL (70-110)
[2023-11-03 06:47] LABS: African American GFR (CKD) 66 (>60 ml/min/1.73 sqM); Anion Gap 5 mmol/L; Blood Urea Nitrogen 17 mg/dL (9-20); Calcium 7.8 mg/dL (8.4-10.2); Carbon Dioxide 24 mmol/L (22-30); Chloride 112 mmol/L (98-107); Glucose 90 mg/dL (74-99); Non-African American GFR(CKD) 57 (>60 ml/min/1.73 sqM); Sodium 141 mmol/L (137-145)
[2023-11-03 08:48] LABS: HCT 30.7 % (39.6-50.0); HGB 9.5 g/dL (13.0-17.0); MCH 23.9 pg (27.0-32.0); MCHC 30.9 g/dL (32.0-37.0); MCV 77.3 FL (80.0-97.0); Mean Platelet Volume 11.3 FL (9.5-12.2); NRBC Per 100 WBC 0 X 10*3/uL (0.00-0.01); Platelet Count 309 X 10*3/uL (140-440); RBC 3.97 X 10*6/uL (4.40-5.60); RDW 17.1 % (11.5-14.5); WBC 12.27 X 10*3/uL (4.50-10.00)
[2023-11-03 09:56] LABS: Basophils # (A) 0.03 X 10*3/uL (0.00-0.10); Basophils % (A) 0.2 %; Eosinophils # (A) 0.28 X 10*3/uL (0.04-0.35); Eosinophils % (A) 2.3 %; Hypochromasia (M) 2+; Lymphocytes % (A) 7.3 %; Monocytes # (A) 1.57 X 10*3/uL (0.20-1.00); Monocytes % (A) 12.8 %; Neutrophils # (A) 9.42 X 10*3/uL (1.80-7.70); Neutrophils % (A) 76.8 %
--- NOTE | 2023-11-03 10:39 | P.PN ---
Subjective Progress Note Date: 11/03/23 Hospital Course: 78-year-old male with history of stroke with right-sided weakness, DVT on Eliquis, stage III decubitus ulcer, diabetes, hypertension, dyslipidemia, recurrent UTIs presenting with altered mentation. In the ED patient's temperature was 99.2, pulse 89, respiratory 16, blood pressure 122/63, saturating at 93% on 2 L. Initial WBC was 22.7, hemoglobin 11.2, creatinine 2.12 above baseline which is around 1.45. Urinalysis showed negative nitrites, large leukocyte esterase, moderate bacteria, respiratory viral panel was negative. Troponin negative. Chest x-ray demonstrated bibasilar infiltrate or atelectasis. EKG showed normal sinus rhythm with right bundle branch block. Head CT showed remote left basal ganglia lacunar injury, no acute process. Lower extremity venous Doppler showed chronic DVT on the right side. Patient admitted for acute metabolic encephalopathy, likely secondary to pneumonia versus urinary tract infection. ID is consulted. Currently on IV antibiotics. Improved. Subjective: Patient seen and examined at bedside. No acute events overnight. Mental status improved. Denies any new complaints. Pertinent positives and negatives as discussed above, a complete review of systems was performed and all other systems are negative. Vitals Signs Reviewed. General: Nontoxic, no distress, appears at stated age Derm: Warm, dry, back not observed Head: Atraumatic, normocephalic, symmetric Eyes: EOMI, no lid lag, anicteric sclera Mouth: No lip lesion, mucus membranes moist Cardiovascular: S1S2 reg, no murmur Lungs: CTA bilateral, no rhonchi, no rales, no accessory muscle use Abdominal: Soft, nontender to palpation, no guarding, no appreciable organ omegaly Ext: muscle strength 4 out of 5 on the right, slightly improved Neuro: CN II-XI grossly intact Psych: Alert, oriented x3, appropriate affect Data Reviewed Today: Pertinent Labs: WBC 12.27, hemoglobin 9.5, potassium 4, creatinine 1.19, blood sugars range between 90-218 Imaging: No new imaging Assessment and Plan: Patient is severely ill, prognosis guarded Severe leukocytosis, improving MDRO, urinary tract infection Bacterial pneumonia Stage III decubitus ulcer, present on admission, not infected Acute metabolic versus septic encephalopathy, improved History of CVA with right-sided deficits -Mental status improved -Urine cultures growing MDRO Enterobacter, sensitive to cefepime -ID started cefepime 2 g every 8 hours -Vancomycin discontinued -Wound care has been consulted -Discussed management with his PCP, patient continues to improve, possible discharge in a day or 2 Hyperglycemia Type 2 diabetes -Previous A1c was 6.9. -On sliding scale insulin, Monitor for hypoglycemia Hypertension -continue amlodipine 10 mg daily Chronic: Chronic DVT Dyslipidemia DVT ppx: Eliquis Code status: Full code Anticipated discharge place: Back to [facility] Anticipated discharge time: 1 to 2 days Objective - Vital Signs Vital signs: Vital Signs Temp 97.9 F 11/03/23 08:03 Pulse 81 11/03/23 08:03 Resp 19 11/03/23 08:03 BP 171/80 11/03/23 08:03 Pulse Ox 96 11/03/23 08:03 FiO2 Intake & Output 11/02/23 11/03/23 11/03/23 18:59 06:59 18:59 Intake Total 1220 Output Total 200 350 Balance 1020 -350 Intake: Intake, IV Titration 500 Amount Vancomycin 1,500 mg In 500 Sodium Chloride 0.9% 500 ml 500 ml @ 167 mls/hr IVPB Q24H [facility] Rx#: [id number] Oral 720 Output: Urine 200 350 Other: Voiding Method External Catheter External Catheter External Catheter # Voids 2 1 # Bowel Movements 1 - Labs CBC & Chem 7: 11/03/23 05:25 11/03/23 05:25 Labs: Abnormal Lab Results - Last 24 Hours (Table) 11/01/23 11/02/23 11/02/23 Range/Units 06:38 11:45 16:40 WBC (4.50-10.00) X 10*3/uL RBC (4.40-5.60) X 10*6/uL Hgb (13.0-17.0) g/dL Hct (39.6-50.0) % MCV (80.0-97.0) FL MCH (27.0-32.0) pg MCHC (32.0-37.0) g/dL RDW (11.5-14.5) % Immature Gran # (0.00-0.04) X 10*3/uL Neutrophils # (1.80-7.70) X 10*3/uL Monocytes # (0.20-1.00) X 10*3/uL Hypochromasia (manual) Chloride (98-107) mmol/L POC Glucose (mg/dL) 119 H 150 H (70-110) mg/dL Calcium (8.4-10.2) mg/dL Procalcitonin 1.17 H (0.02-0.09) ng/mL 11/02/23 11/03/23 11/03/23 Range/Units 20:05 05:25 05:25 WBC 12.27 H (4.50-10.00) X 10*3/uL RBC 3.97 L (4.40-5.60) X 10*6/uL Hgb 9.5 L (13.0-17.0) g/dL Hct 30.7 L (39.6-50.0) % MCV 77.3 L (80.0-97.0) FL MCH 23.9 L (27.0-32.0) pg MCHC 30.9 L (32.0-37.0) g/dL RDW 17.1 H (11.5-14.5) % Immature Gran # 0.07 H (0.00-0.04) X 10*3/uL Neutrophils # 9.42 H (1.80-7.70) X 10*3/uL Monocytes # 1.57 H (0.20-1.00) X 10*3/uL Hypochromasia (manual) 2+ A Chloride 112 H (98-107) mmol/L POC Glucose (mg/dL) 218 H (70-110) mg/dL Calcium 7.8 L (8.4-10.2) mg/dL Procalcitonin (0.02-0.09) ng/mL Microbiology - Last 24 Hours (Table) 10/30/23 20:25 Blood Culture - Preliminary Blood 10/30/23 20:40 Blood Culture - Preliminary Blood 10/30/23 20:42 Urine Culture - Final Urine,Clean Catch Enterobacter cloacae
[2023-11-03 12:00] LABS: Glucose,Whole Blood 118 mg/dL (70-110)
[2023-11-03] MEDS ORDERED: VANCOMYCIN TROUGH DUE 1 EACH MISC MISCELLANE ONE (13:00)
[2023-11-03] MEDS: CEFEPIME 2 GM in SODIUM CHLORIDE 0.9% 100 ML IVPB SCH (13:10)
--- NOTE | 2023-11-03 14:43 | P.CONS ---
History of Present Illness - Reason for Consult Consult date: 11/03/23 wound care - History of Present Illness This is an 78-year-old gentleman known to the wound care center with a stage II pressure ulcer to the right buttocks. Patient states that he does not know how long the ulceration has been there. Ulceration measures approximately 1.5 x 3 x 0.1 cm slough and nonviable tissue noted to the wound bed. Wound edges are attached to the wound base. No tunneling or undermining noted. Minimal granulation noted. Patient's past medical history is significant for CVA, diabetes, hypertension, osteoarthritis. Review Of Systems: Constitutional: No fever, no chills, no night sweats. No weight change. No weakness, fatigue or lethargy. No daytime sleepiness. Integumentary:reports wounds, no lesions. No rash or pruritus. No unusual bruising. No change in hair or nails. Physical exam: General Appearance: Alert, cooperative, no distress, appears stated age. Skin: See HPI all other Skin color, texture, tugor normal, no rashes or lesions. Neurologic: Alert oriented x3 Assessment: 1. Stage II pressure ulcer right buttocks 2. Diabetes with skin ulceration Plan: 1. Apply honey gel and bordered foam. Turn patient every 2 hours. Utilize air-filled cushion when sitting. Patient may come to the wound care center upon discharge for advanced wound care treatment. Patient is agreeable at this time. Thank you for the consultation any questions please contact the wound care center DNP note has been reviewed and discussed with Dr. Ramirez and the impression and plan of care has been directed as dictated. Past Medical History Past Medical History: CVA/TIA, Diabetes Mellitus, Deep Vein Thrombosis (DVT), Hypertension, Osteoarthritis (OA) Additional Past Medical History / Comment(s): Wound center patient, states has DVT x3 in rt leg, past hx of diabetes and HTN, no longer requires rx since weight loss. states TIA in 2010 residual muscle weakness in rt leg, wears brace rt leg, uti . 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, pacemaker/ACID placed 2017 History of Any Multi-Drug Resistant Organisms: MRSA Year Discovered:: 07/29/23 MDRO Source:: Sputum Past Surgical History: Back Surgery, Hernia Repair, Orthopedic Surgery, Pacemaker Additional Past Surgical History / Comment(s): cervical fusion, right hip replacement, cataract surgery, penile implant Past Anesthesia/Blood Transfusion Reactions: No Reported Reaction Type of Cardiac Device: Permanent Pacemaker, AICD, Unknown Device Placement Date:: May 2018 Past Psychological History: No Psychological Hx Reported Smoking Status: Never smoker Past Alcohol Use History: None Reported Past Drug Use History: None Reported - Past Family History Mother Family Medical History: Cancer Father Family Medical History: Cancer, Coronary Artery Disease (CAD) Medications and Allergies Home Medications Medication Instructions Recorded Confirmed Type Atorvastatin [Lipitor] 10 mg PO HS 10/29/18 10/30/23 History Magnesium Oxide 400 mg PO DAILY 07/07/21 10/30/23 History Metoprolol Tartrate [Lopressor] 50 mg PO DAILY 07/07/21 10/30/23 History Tamsulosin [Flomax] 0.4 mg PO BID #0 capsule 09/13/21 10/30/23 Rx L.acidoph,Paracasei, B.lactis 1 cap PO DAILY 11/11/22 10/30/23 History [Probiotic] Calcium Carbonate [Calcium] 600 mg PO BID 01/10/23 10/30/23 History Multivit-Mins/Iron/Folic/Lycop 1 tab PO DAILY 01/10/23 10/30/23 History [Centrum Men's Tablet] Medihoney 100% Topical Paste 1 applic TOPICAL DAILY 06/19/23 10/30/23 History Gabapentin [Neurontin] 300 mg PO BID #6 cap 06/23/23 10/30/23 Rx oxyCODONE-APAP 7.5-325MG [Percocet 1 tab PO TID PRN 07/28/23 10/30/23 History 7.5-325 mg] Acetaminophen Tab [Tylenol] 325 mg PO TID PRN 10/10/23 10/30/23 History Apixaban [Eliquis] 2.5 mg PO BID 10/10/23 10/30/23 History polyethylene glycoL 3350 [Miralax] 17 gm PO Q2D 10/10/23 10/30/23 History Docusate [Colace] 100 mg PO DAILY PRN 10/30/23 10/30/23 History Allergies Allergy/AdvReac Type Severity Reaction Status Date / Time ciprofloxacin [From Cipro] Allergy Unknown Verified 10/10/23 16:13 doxazosin Allergy Unknown Verified 10/10/23 16:13 Physical Exam Vitals: Vital Signs Temp Pulse Resp BP Pulse Ox 11/03/23 08:03 97.9 F 81 19 171/80 96 11/03/23 01:05 98.2 F 79 14 184/84 100 11/02/23 19:19 98.2 F 85 14 144/78 99 Intake and Output 11/02/23 11/03/23 11/03/23 22:59 06:59 14:59 Intake Total 1220 Output Total 200 350 Balance 1020 -350 Intake: Intake, IV Titration 500 Amount Vancomycin 1,500 mg In 500 Sodium Chloride 0.9% 500 ml 500 ml @ 167 mls/hr IVPB Q24H [facility] Rx#: [id number] Oral 720 Output: Urine 200 350 Other: Voiding Method External Catheter External Catheter # Voids 2 1 # Bowel Movements 1 Results CBC & Chem 7: 11/03/23 05:25 11/03/23 05:25 Labs: Abnormal Lab Results - Last 24 Hours (Table) 11/01/23 11/02/23 11/02/23 Range/Units 06:38 16:40 20:05 WBC (4.50-10.00) X 10*3/uL RBC (4.40-5.60) X 10*6/uL Hgb (13.0-17.0) g/dL Hct (39.6-50.0) % MCV (80.0-97.0) FL MCH (27.0-32.0) pg MCHC (32.0-37.0) g/dL RDW (11.5-14.5) % Immature Gran # (0.00-0.04) X 10*3/uL Neutrophils # (1.80-7.70) X 10*3/uL Monocytes # (0.20-1.00) X 10*3/uL Hypochromasia (manual) Chloride (98-107) mmol/L POC Glucose (mg/dL) 150 H 218 H (70-110) mg/dL Calcium (8.4-10.2) mg/dL Procalcitonin 1.17 H (0.02-0.09) ng/mL 11/03/23 11/03/23 11/03/23 Range/Units 05:25 05:25 11:59 WBC 12.27 H (4.50-10.00) X 10*3/uL RBC 3.97 L (4.40-5.60) X 10*6/uL Hgb 9.5 L (13.0-17.0) g/dL Hct 30.7 L (39.6-50.0) % MCV 77.3 L (80.0-97.0) FL MCH 23.9 L (27.0-32.0) pg MCHC 30.9 L (32.0-37.0) g/dL RDW 17.1 H (11.5-14.5) % Immature Gran # 0.07 H (0.00-0.04) X 10*3/uL Neutrophils # 9.42 H (1.80-7.70) X 10*3/uL Monocytes # 1.57 H (0.20-1.00) X 10*3/uL Hypochromasia (manual) 2+ A Chloride 112 H (98-107) mmol/L POC Glucose (mg/dL) 118 H (70-110) mg/dL Calcium 7.8 L (8.4-10.2) mg/dL Procalcitonin (0.02-0.09) ng/mL Microbiology - Last 24 Hours (Table) 10/30/23 20:25 Blood Culture - Preliminary Blood 10/30/23 20:40 Blood Culture - Preliminary Blood 10/30/23 20:42 Urine Culture - Final Urine,Clean Catch Enterobacter cloacae Assessment and Plan (1) Stage II pressure ulcer of right buttock Current Visit: Yes Status: Acute Code(s): L89.312 - PRESSURE ULCER OF RIGHT BUTTOCK, STAGE 2 SNOMED Code(s): 02023811997325 (2) Type 2 diabetes mellitus with other skin ulcer Current Visit: Yes Status: Acute Code(s): E11.622 - TYPE 2 DIABETES MELLITUS WITH OTHER SKIN ULCER; L98.499 - NON-PRESSURE CHRONIC ULCER OF SKIN OF SITES W UNSP SEVERITY SNOMED Code(s): 648068299
[2023-11-03 17:07] LABS: Glucose,Whole Blood 144 mg/dL (70-110)
[2023-11-03 20:45] LABS: Glucose,Whole Blood 181 mg/dL (70-110)
[2023-11-04 06:28] LABS: Glucose,Whole Blood 123 mg/dL (70-110)
[2023-11-04 06:36] LABS: Anisocytosis Slight; HCT 37.3 % (39.0-53.0); HGB 11.8 gm/dL (13.0-17.5); Hypochromasia Marked; MCH 24.7 pg (25.0-35.0); MCHC 31.8 g/dL (31.0-37.0); MCV 77.7 fL (80.0-100.0); Mean Platelet Volume 8.6; Microcytosis Slight; Platelet Count 352 k/uL (150-450); WBC 13.9 k/uL (3.8-10.6)
--- NOTE | 2023-11-04 07:18 | P.PN ---
Subjective Progress Note Date: 11/03/23 Principal diagnosis: Reason for follow-up is UTI/pneumonia and a sacral pressure ulcer Patient is a 78-year-old male with a past medical history negative for CVA TIA patient is usually bedbound also with history of diabetes mellitus DVT hypertension osteomyelitis patient was brought into the ER for evaluation of altered mental status, patient noticed to have elevated white count low-grade fever positive UA and also with evidence of bibasilar infiltrate in addition to stage III sacral pressure ulcer. On today's evaluation that is 11/03/2023, the patient continues to be afebrile, patient is breathing comfortably on room air, the patient denies chest pain shortness of breath and no significant cough, patient denies nausea no vomiting, no abdominal pain and no diarrhea. Patient white count is down to 12.27, creatinine is 1.19 urine did grow Enterobacter that is resistant pathogen Objective - Vital Signs Vital signs: Vital Signs Temp 97.9 F 11/03/23 08:03 Pulse 81 11/03/23 08:03 Resp 19 11/03/23 08:03 BP 171/80 11/03/23 08:03 Pulse Ox 96 11/03/23 08:03 FiO2 Intake & Output 11/02/23 11/03/23 11/03/23 18:59 06:59 18:59 Intake Total 1220 Output Total 200 350 Balance 1020 -350 Intake: Intake, IV Titration 500 Amount Vancomycin 1,500 mg In 500 Sodium Chloride 0.9% 500 ml 500 ml @ 167 mls/hr IVPB Q24H [facility] Rx#: [id number] Oral 720 Output: Urine 200 350 Other: Voiding Method External Catheter External Catheter External Catheter # Voids 2 1 # Bowel Movements 1 - Exam GENERAL DESCRIPTION: An elderly male lying in bed in no distress RESPIRATORY SYSTEM: Unlabored breathing , decreased breath sounds at bases HEART: S1 S2 regular rate and rhythm , ABDOMEN: Soft , no tenderness EXTREMITIES: No edema feet - Labs CBC & Chem 7: 11/04/23 05:14 11/03/23 05:25 Labs: Abnormal Lab Results - Last 24 Hours (Table) 11/01/23 11/02/23 11/02/23 Range/Units 06:38 11:45 16:40 WBC (4.50-10.00) X 10*3/uL RBC (4.40-5.60) X 10*6/uL Hgb (13.0-17.0) g/dL Hct (39.6-50.0) % MCV (80.0-97.0) FL MCH (27.0-32.0) pg MCHC (32.0-37.0) g/dL RDW (11.5-14.5) % Immature Gran # (0.00-0.04) X 10*3/uL Neutrophils # (1.80-7.70) X 10*3/uL Monocytes # (0.20-1.00) X 10*3/uL Hypochromasia (manual) Chloride (98-107) mmol/L POC Glucose (mg/dL) 119 H 150 H (70-110) mg/dL Calcium (8.4-10.2) mg/dL Procalcitonin 1.17 H (0.02-0.09) ng/mL 11/02/23 11/03/23 11/03/23 Range/Units 20:05 05:25 05:25 WBC 12.27 H (4.50-10.00) X 10*3/uL RBC 3.97 L (4.40-5.60) X 10*6/uL Hgb 9.5 L (13.0-17.0) g/dL Hct 30.7 L (39.6-50.0) % MCV 77.3 L (80.0-97.0) FL MCH 23.9 L (27.0-32.0) pg MCHC 30.9 L (32.0-37.0) g/dL RDW 17.1 H (11.5-14.5) % Immature Gran # 0.07 H (0.00-0.04) X 10*3/uL Neutrophils # 9.42 H (1.80-7.70) X 10*3/uL Monocytes # 1.57 H (0.20-1.00) X 10*3/uL Hypochromasia (manual) 2+ A Chloride 112 H (98-107) mmol/L POC Glucose (mg/dL) 218 H (70-110) mg/dL Calcium 7.8 L (8.4-10.2) mg/dL Procalcitonin (0.02-0.09) ng/mL Microbiology - Last 24 Hours (Table) 10/30/23 20:25 Blood Culture - Preliminary Blood 10/30/23 20:40 Blood Culture - Preliminary Blood 10/30/23 20:42 Urine Culture - Final Urine,Clean Catch Enterobacter cloacae Assessment and Plan (1) Pneumonia Current Visit: Yes Status: Acute Code(s): J18.9 - PNEUMONIA, UNSPECIFIED ORGANISM SNOMED Code(s): 075921130 (2) UTI (urinary tract infection) Current Visit: Yes Status: Acute Code(s): N39.0 - URINARY TRACT INFECTION, SITE NOT SPECIFIED SNOMED Code(s): 66541801 (3) Stage III pressure ulcer of sacral region Current Visit: No Status: Acute Code(s): L89.153 - PRESSURE ULCER OF SACRAL REGION, STAGE 3 SNOMED Code(s): 52188555525180 Plan: 1patient presented to hospital with weakness mental status changes which is likely multifactorial concern for possible CAP versus UTI however the patient also have a congested cough and noticed to have a bibasilar infiltrate possible component of pneumonia not entirely excluded 2-patient did have a stage III sacral pressure ulcer with some slough tissue but no significant surrounding redness or foul-smelling drainage to be suspicious for wound infection 3-patient urine is grew Enterobacter that is resistant pathogen though sensitive to cefepime 4-local wound care to the sacral wound with Medihoney followed by moist dressing change daily keep the area of the pressure 5-we will discontinue Rocephin and vancomycin, start the patient on cefepime will need midline for outpatient IV antibiotic therapy x 7 to 10 days discussed with admitting team Dictation was produced using [employer] dictation software. please excuse any grammatical, word or spelling errors. Time with Patient: Less than 30
[2023-11-04 07:20] LABS: Band Neutrophils % 7 %; Eosinophils # (M) 0.28 k/uL (0-0.7); Lymphocytes # (M) 1.67 k/uL (1.0-4.8); Monocytes # (M) 0.97 k/uL (0-1.0); Neutrophils % (M) 72 %; Nucleated Red Blood Cells 0 /100 WBC (0-0); Total Cells Counted 100
[2023-11-04 07:23] LABS: Large Platelets Present; Poikilocytosis (M) Present
[2023-11-04] MEDS: ACETAMINOPHEN TAB 325 MG TAB PO PRN (09:24)
[2023-11-04 11:44] LABS: Glucose,Whole Blood 145 mg/dL (70-110)
[2023-11-04] MEDS: CEFEPIME 2 GM in SODIUM CHLORIDE 0.9% 100 ML IVPB SCH (11:59)
--- NOTE | 2023-11-04 12:59 | P.PN ---
Subjective Progress Note Date: 11/04/23 Principal diagnosis: Reason for follow-up is UTI/pneumonia and a sacral pressure ulcer Patient is a 78-year-old male with a past medical history negative for CVA TIA patient is usually bedbound also with history of diabetes mellitus DVT hypertension osteomyelitis patient was brought into the ER for evaluation of altered mental status, patient noticed to have elevated white count low-grade fever positive UA and also with evidence of bibasilar infiltrate in addition to stage III sacral pressure ulcer. On today's evaluation that is 11/04/2023, the patient remains to be afebrile, patient is currently breathing comfortably on room air, the patient denies chest pain or cough, patient denies abdominal pain, no nausea no vomiting or any diarrhea. Denies any worsening pain to the sacral wound area. Patient white count slightly up to 13.9 today blood culture remains to be negative Objective - Vital Signs Vital signs: Vital Signs Temp 98.3 F 11/04/23 07:02 Pulse 94 11/04/23 07:02 Resp 19 11/04/23 07:02 BP 185/78 11/04/23 07:02 Pulse Ox 93 L 11/04/23 07:02 FiO2 Intake & Output 11/03/23 11/04/23 11/04/23 18:59 06:59 18:59 Output Total 600 300 Balance -600 -300 Weight 81.647 kg Output: Urine 600 300 Other: Voiding Method External Catheter External Catheter External Catheter # Voids 1 # Bowel Movements 1 - Exam GENERAL DESCRIPTION: An elderly male lying in bed in no distress RESPIRATORY SYSTEM: Unlabored breathing , decreased breath sounds at bases HEART: S1 S2 regular rate and rhythm , ABDOMEN: Soft , no tenderness EXTREMITIES: No edema feet - Labs CBC & Chem 7: 11/04/23 05:14 11/03/23 05:25 Labs: Abnormal Lab Results - Last 24 Hours (Table) 11/03/23 11/03/23 11/03/23 Range/Units 11:59 17:05 20:43 WBC (3.8-10.6) k/uL Hgb (13.0-17.5) gm/dL Hct (39.0-53.0) % MCV (80.0-100.0) fL MCH (25.0-35.0) pg RDW (11.5-15.5) % Neutrophils # (Manual) (1.3-7.7) k/uL POC Glucose (mg/dL) 118 H 144 H 181 H (70-110) mg/dL 11/04/23 11/04/23 11/04/23 Range/Units 05:14 06:25 11:43 WBC 13.9 H (3.8-10.6) k/uL Hgb 11.8 L (13.0-17.5) gm/dL Hct 37.3 L (39.0-53.0) % MCV 77.7 L (80.0-100.0) fL MCH 24.7 L (25.0-35.0) pg RDW 16.0 H (11.5-15.5) % Neutrophils # (Manual) 10.90 H (1.3-7.7) k/uL POC Glucose (mg/dL) 123 H 145 H (70-110) mg/dL Assessment and Plan (1) Pneumonia Current Visit: Yes Status: Acute Code(s): J18.9 - PNEUMONIA, UNSPECIFIED ORGANISM SNOMED Code(s): 496665660 (2) UTI (urinary tract infection) Current Visit: Yes Status: Acute Code(s): N39.0 - URINARY TRACT INFECTION, SITE NOT SPECIFIED SNOMED Code(s): 60873466 (3) Stage III pressure ulcer of sacral region Current Visit: No Status: Acute Code(s): L89.153 - PRESSURE ULCER OF SACRAL REGION, STAGE 3 SNOMED Code(s): 52145778013006 Plan: 1patient presented to hospital with weakness mental status changes which is likely multifactorial concern for possible CAP versus UTI however the patient also have a congested cough and noticed to have a bibasilar infiltrate possible component of pneumonia not entirely excluded 2-patient did have a stage III sacral pressure ulcer with some slough tissue but no significant surrounding redness or foul-smelling drainage to be suspicious for wound infection 3-patient urine is grew Enterobacter that is resistant pathogen though sensitive to cefepime 4-local wound care to the sacral wound to continue per the wound care team and keep the area of the pressure 5-patient to continue cefepime did have slight worsening of the white count and need to be monitored closely Dictation was produced using [employer] dictation software. please excuse any grammatical, word or spelling errors. Time with Patient: Less than 30
--- NOTE | 2023-11-04 13:25 | P.PN ---
Subjective Progress Note Date: 11/04/23 Hospital Course: 78-year-old male with history of stroke with right-sided weakness, DVT on Eliquis, stage III decubitus ulcer, diabetes, hypertension, dyslipidemia, recurrent UTIs presenting with altered mentation. In the ED patient's temperature was 99.2, pulse 89, respiratory 16, blood pressure 122/63, saturating at 93% on 2 L. Initial WBC was 22.7, hemoglobin 11.2, creatinine 2.12 above baseline which is around 1.45. Urinalysis showed negative nitrites, large leukocyte esterase, moderate bacteria, respiratory viral panel was negative. Troponin negative. Chest x-ray demonstrated bibasilar infiltrate or atelectasis. EKG showed normal sinus rhythm with right bundle branch block. Head CT showed remote left basal ganglia lacunar injury, no acute process. Lower extremity venous Doppler showed chronic DVT on the right side. Patient admitted for acute metabolic encephalopathy, likely secondary to pneumonia versus urinary tract infection. ID is consulted. Currently on IV antibiotics. Growing Enterobacter, MDRO, started on cefepime. Patient will require nursing facility. Midline in place Subjective: Patient seen and examined at bedside. No acute events overnight. Mental status improved. Denies any new complaints. Pertinent positives and negatives as discussed above, a complete review of systems was performed and all other systems are negative. Vitals Signs Reviewed. General: Nontoxic, no distress, appears at stated age Derm: Warm, dry, back not observed Head: Atraumatic, normocephalic, symmetric Eyes: EOMI, no lid lag, anicteric sclera Mouth: No lip lesion, mucus membranes moist Cardiovascular: S1S2 reg, no murmur Lungs: CTA bilateral, no rhonchi, no rales, no accessory muscle use Abdominal: Soft, nontender to palpation, no guarding, no appreciable organome ivone Ext: muscle strength 4 out of 5 on the right, slightly improved Neuro: CN II-XI grossly intact Psych: Alert, oriented x3, appropriate affect Data Reviewed Today: Pertinent Labs: WBC 13.9, hemoglobin 11.8, glucose range between 1 23-1 81 Imaging: No new imaging Assessment and Plan: Patient is severely ill, prognosis guarded Severe leukocytosis MDRO, urinary tract infection Bacterial pneumonia Stage III decubitus ulcer, present on admission, not infected Acute metabolic versus septic encephalopathy, improved History of CVA with right-sided deficits -Mental status improved -Urine cultures growing MDRO Enterobacter, sensitive to cefepime -ID has patient cefepime 2 g every 12 hours -Wound care has been consulted -Discussed management with his PCP, patient continues to improve, needs nursing facility for IV antibiotics Hyperglycemia Type 2 diabetes -Previous A1c was 6.9. -On sliding scale insulin, Monitor for hypoglycemia Hypertension -continue amlodipine 10 mg daily Chronic: Chronic DVT Dyslipidemia DVT ppx: Eliquis Code status: Full code Anticipated discharge place: Nursing facility Anticipated discharge time: Pending auth Objective - Vital Signs Vital signs: Vital Signs Temp 98.3 F 11/04/23 07:02 Pulse 94 11/04/23 07:02 Resp 19 11/04/23 07:02 BP 185/78 11/04/23 07:02 Pulse Ox 93 L 11/04/23 07:02 FiO2 Intake & Output 11/03/23 11/04/23 11/04/23 18:59 06:59 18:59 Output Total 600 300 Balance -600 -300 Weight 81.647 kg Output: Urine 600 300 Other: Voiding Method External Catheter External Catheter External Catheter # Voids 1 # Bowel Movements 1 - Labs CBC & Chem 7: 11/04/23 05:14 11/03/23 05:25 Labs: Abnormal Lab Results - Last 24 Hours (Table) 11/03/23 11/03/23 11/04/23 Range/Units 17:05 20:43 05:14 WBC 13.9 H (3.8-10.6) k/uL Hgb 11.8 L (13.0-17.5) gm/dL Hct 37.3 L (39.0-53.0) % MCV 77.7 L (80.0-100.0) fL MCH 24.7 L (25.0-35.0) pg RDW 16.0 H (11.5-15.5) % Neutrophils # (Manual) 10.90 H (1.3-7.7) k/uL POC Glucose (mg/dL) 144 H 181 H (70-110) mg/dL 11/04/23 11/04/23 Range/Units 06:25 11:43 WBC (3.8-10.6) k/uL Hgb (13.0-17.5) gm/dL Hct (39.0-53.0) % MCV (80.0-100.0) fL MCH (25.0-35.0) pg RDW (11.5-15.5) % Neutrophils # (Manual) (1.3-7.7) k/uL POC Glucose (mg/dL) 123 H 145 H (70-110) mg/dL
[2023-11-04 17:24] LABS: Glucose,Whole Blood 135 mg/dL (70-110)
[2023-11-04 20:59] LABS: Glucose,Whole Blood 131 mg/dL (70-110)
[2023-11-05 05:42] LABS: Glucose,Whole Blood 121 mg/dL (70-110)
[2023-11-05 10:21] LABS: Anisocytosis Slight; HCT 35.4 % (39.0-53.0); HGB 10.8 gm/dL (13.0-17.5); Hypochromasia Marked; MCH 24.3 pg (25.0-35.0); MCHC 30.6 g/dL (31.0-37.0); MCV 79.6 fL (80.0-100.0); Mean Platelet Volume 9.8; Microcytosis Slight; Platelet Count 306 k/uL (150-450); RBC 4.45 m/uL (4.30-5.90); RDW 16.2 % (11.5-15.5); WBC 15.2 k/uL (3.8-10.6)
--- NOTE | 2023-11-05 11:33 | P.PN ---
Subjective Progress Note Date: 11/05/23 Hospital Course: 78-year-old male with history of stroke with right-sided weakness, DVT on Eliquis, stage III decubitus ulcer, diabetes, hypertension, dyslipidemia, recurrent UTIs presenting with altered mentation. In the ED patient's temperature was 99.2, pulse 89, respiratory 16, blood pressure 122/63, saturating at 93% on 2 L. Initial WBC was 22.7, hemoglobin 11.2, creatinine 2.12 above baseline which is around 1.45. Urinalysis showed negative nitrites, large leukocyte esterase, moderate bacteria, respiratory viral panel was negative. Troponin negative. Chest x-ray demonstrated bibasilar infiltrate or atelectasis. EKG showed normal sinus rhythm with right bundle branch block. Head CT showed remote left basal ganglia lacunar injury, no acute process. Lower extremity venous Doppler showed chronic DVT on the right side. Patient admitted for acute metabolic encephalopathy, likely secondary to pneumonia versus urinary tract infection. ID is consulted. Currently on IV antibiotics. Growing Enterobacter, MDRO, started on cefepime. Patient will require nursing facility. Midline in place. Continues to have increased white count. In the past has grown MRSA. White coat initially went down with vancomycin, discussed management with ID, started on daptomycin. Subjective: Patient seen and examined at bedside. No acute events overnight. Mental status improved. Denies any new complaints. Pertinent positives and negatives as discussed above, a complete review of systems was performed and all other systems are negative. Vitals Signs Reviewed. General: Nontoxic, no distress, appears at stated age Derm: Warm, dry, back not observed Head: Atraumatic, normocephalic, symmetric Eyes: EOMI, no lid lag, anicteric sclera Mouth: No lip lesion, mucus membranes moist Cardiovascular: S1S2 reg, no murmur Lungs: CTA bilateral, no rhonchi, no rales, no accessory muscle use Abdominal: Soft, nontender to palpation, no guarding, no appreciable organomegaly Ext: muscle strength 4 out of 5 on the right, slightly improved Neuro: CN II-XI grossly intact Psych: Alert, oriented x3, appropriate affect Data Reviewed Today: Pertinent Labs: WBC 15.2, hemoglobin 10.8, MCV 79.6 Imaging: No new imaging Assessment and Plan: Patient is severely ill, prognosis guarded Severe leukocytosis MDRO, urinary tract infection Bacterial pneumonia Stage III decubitus ulcer, present on admission, possibly infected, previously grown MRSA Acute metabolic versus septic encephalopathy, resolved History of CVA with right-sided deficits -Mental status improved -Urine cultures growing MDRO Enterobacter, sensitive to cefepime -ID has patient cefepime 2 g every 12 hours -White count did go down initially with vancomycin, now it is coming up again. Discussed management with ID, started on daptomycin 4 mg/kg every 24 hours -Patient may be able to get IV antibiotics at [facility]. Hyperglycemia Type 2 diabetes -Previous A1c was 6.9. -On sliding scale insulin, Monitor for hypoglycemia Hypertension -continue amlodipine 10 mg daily Chronic: Chronic DVT Dyslipidemia DVT ppx: Eliquis Code status: Full code Anticipated discharge place: Likely back to [facility] Anticipated discharge time: Pending clinical course Objective - Vital Signs Vital signs: Vital Signs Temp 99.7 F H 11/05/23 07:30 Pulse 101 H 11/05/23 07:30 Resp 19 11/05/23 07:30 BP 182/86 11/05/23 07:30 Pulse Ox 95 11/05/23 07:30 FiO2 Intake & Output 11/04/23 11/05/23 11/05/23 18:59 06:59 18:59 Output Total 1000 550 Balance -1000 -550 Weight 81.647 kg Output: Urine 1000 550 Other: Voiding Method External Catheter External Catheter External Catheter - Labs CBC & Chem 7: 11/05/23 09:46 11/03/23 05:25 Labs: Abnormal Lab Results - Last 24 Hours (Table) 11/04/23 11/04/23 11/04/23 Range/Units 11:43 17:23 20:57 WBC (3.8-10.6) k/uL Hgb (13.0-17.5) gm/dL Hct (39.0-53.0) % MCV (80.0-100.0) fL MCH (25.0-35.0) pg MCHC (31.0-37.0) g/dL RDW (11.5-15.5) % POC Glucose (mg/dL) 145 H 135 H 131 H (70-110) mg/dL 11/05/23 11/05/23 Range/Units 05:39 09:46 WBC 15.2 H (3.8-10.6) k/uL Hgb 10.8 L (13.0-17.5) gm/dL Hct 35.4 L (39.0-53.0) % MCV 79.6 L (80.0-100.0) fL MCH 24.3 L (25.0-35.0) pg MCHC 30.6 L (31.0-37.0) g/dL RDW 16.2 H (11.5-15.5) % POC Glucose (mg/dL) 121 H (70-110) mg/dL Microbiology - Last 24 Hours (Table) 10/30/23 20:25 Blood Culture - Final Blood 10/30/23 20:40 Blood Culture - Final Blood
[2023-11-05 11:34] LABS: Lymphocytes # (M) 0.76 k/uL (1.0-4.8); Monocytes # (M) 1.06 k/uL (0-1.0); Neutrophils # (M) 13.38 k/uL (1.3-7.7); Neutrophils % (M) 88 %; Nucleated Red Blood Cells 0 /100 WBC (0-0); Total Cells Counted 100
[2023-11-05 11:48] LABS: Glucose,Whole Blood 131 mg/dL (70-110)
[2023-11-05] MEDS: DAPTOmycin 350 MG in SODIUM CHLORIDE 0.9% 50 ML IVPB SCH (12:10)
[2023-11-05] MEDS: oxyCODONE-APAP 7.5-325MG 1 EACH TAB PO PRN (12:14)
[2023-11-05 16:42] LABS: Glucose,Whole Blood 139 mg/dL (70-110)
[2023-11-05 21:20] LABS: Glucose,Whole Blood 125 mg/dL (70-110)
[2023-11-06 06:03] LABS: Glucose,Whole Blood 118 mg/dL (70-110)
[2023-11-06 07:37] LABS: African American GFR (CKD) 65 (>60 ml/min/1.73 sqM); Anion Gap 14 mmol/L; Blood Urea Nitrogen 15 mg/dL (9-20); Calcium 8.7 mg/dL (8.4-10.2); Carbon Dioxide 18 mmol/L (22-30); Chloride 110 mmol/L (98-107); Glucose 127 mg/dL (74-99); Non-African American GFR(CKD) 56 (>60 ml/min/1.73 sqM); Potassium 3.4 mmol/L (3.5-5.1); Sodium 142 mmol/L (137-145)
[2023-11-06 07:38] LABS: Anisocytosis Slight; HGB 10.1 gm/dL (13.0-17.5); Hypochromasia Marked; MCH 24.3 pg (25.0-35.0); MCHC 30.6 g/dL (31.0-37.0); MCV 79.4 fL (80.0-100.0); Mean Platelet Volume 9.6; Microcytosis Slight; Platelet Count 295 k/uL (150-450); RBC 4.15 m/uL (4.30-5.90); RDW 16.8 % (11.5-15.5); WBC 12.9 k/uL (3.8-10.6)
[2023-11-06 08:37] LABS: Eosinophils # (M) 0.26 k/uL (0-0.7); Monocytes # (M) 0.77 k/uL (0-1.0); Neutrophils # (M) 10.97 k/uL (1.3-7.7); Neutrophils % (M) 85 %; Nucleated Red Blood Cells 0 /100 WBC (0-0); Total Cells Counted 100
[2023-11-06 11:52] LABS: Glucose,Whole Blood 144 mg/dL (70-110)
[2023-11-06] MEDS: POTASSIUM CHLORIDE ER 20 MEQ TAB.ER PO STA (12:25)
--- NOTE | 2023-11-06 13:12 | P.DS ---
Providers Date of admission: 10/30/23 23:20 Expected date of discharge: 11/06/23 Attending physician: Dre Garcia MD Consults: 10/31/23 13:47 Consult Physician Routine Consulting Provider: Pablito Lynne Consult Reason/Comments: UTI vs sacral osteo Do you want consulting provider notified?: Yes Primary care physician: Stated None Hospital Course: Discharge Diagnosis: Severe leukocytosis MDRO, urinary tract infection Bacterial pneumonia Stage III decubitus ulcer, present on admission, possibly infected, previously grown MRSA Acute metabolic versus septic encephalopathy History of CVA with right-sided deficits Hyperglycemia Type 2 diabetes Hypertension Hospital Course: 78-year-old male with history of stroke with right-sided weakness, DVT on Eliquis, stage III decubitus ulcer, diabetes, hypertension, dyslipidemia, recurrent UTIs presenting with altered mentation. In the ED patient's temperature was 99.2, pulse 89, respiratory 16, blood pressure 122/63, saturat ing at 93% on 2 L. Initial WBC was 22.7, hemoglobin 11.2, creatinine 2.12 above baseline which is around 1.45. Urinalysis showed negative nitrites, large leukocyte esterase, moderate bacteria, respiratory viral panel was negative. Troponin negative. Chest x-ray demonstrated bibasilar infiltrate or atelectasis. EKG showed normal sinus rhythm with right bundle branch block. Head CT showed remote left basal ganglia lacunar injury, no acute process. Lower extremity venous Doppler showed chronic DVT on the right side. Patient admitted for acute metabolic encephalopathy, likely secondary to pneumonia versus urinary tract infection. ID is consulted. Currently on IV antibiotics. Growing Enterobacter, MDRO, started on cefepime. Midline in place. Continues to have increased white count. In the past has grown MRSA. White coat initially went down with vancomycin, discussed management with ID, started on daptomycin. White count now going down. Patient to be discharged on IV cefepim e and IV daptomycin for 2 weeks. Communicated plan with patient. Patient seen and examined at bedside. Vital signs reviewed and stable. General: Nontoxic, no distress, appears at stated age Derm: Warm, dry, back not observed Head: Atraumatic, normocephalic, symmetric Eyes: EOMI, no lid lag, anicteric sclera Mouth: No lip lesion, mucus membranes moist Cardiovascular: S1S2 reg, no murmur Lungs: CTA bilateral, no rhonchi, no rales, no accessory muscle use Abdominal: Soft, nontender to palpation, no guarding, no appreciable organomegaly Ext: muscle strength 4 out of 5 on the right, slightly improved Neuro: CN II-XI grossly intact Psych: Alert, oriented x3, appropriate affect A total of 33 minutes of time were spent preparing this complex discharge summary. Patient was discharged on 11/06/2023 at 1307. Patient Condition at Discharge: Stable Plan - Discharge Summary Discharge Rx Participant: No New Discharge Prescriptions: New Cefepime [Maxipime] 2 gm IVPB Q12H #28 each DAPTOmycin [Cubicin] 350 mg IVPB Q24HR@1230 #14 each amLODIPine [Norvasc] 10 mg PO DAILY #30 tab Continue Atorvastatin [Lipitor] 10 mg PO HS Magnesium Oxide 400 mg PO DAILY Metoprolol Tartrate [Lopressor] 50 mg PO DAILY Tamsulosin [Flomax] 0.4 mg PO BID #0 capsule L.acidoph,Paracasei, B.lactis [Probiotic] 1 cap PO DAILY oxyCODONE-APAP 7.5-325MG [Percocet 7.5-325 mg] 1 tab PO TID PRN PRN Reason: Pain Acetaminophen Tab [Tylenol] 325 mg PO TID PRN PRN Reason: Fever And/ Or Pain polyethylene glycoL 3350 [Miralax] 17 gm PO Q2D Multivit-Mins/Iron/Folic/Lycop [Centrum Men's Tablet] 1 tab PO DAILY Calcium Carbonate [Calcium] 600 mg PO BID Medihoney 100% Topical Paste 1 applic TOPICAL DAILY Apixaban [Eliquis] 2.5 mg PO BID Docusate [Colace] 100 mg PO DAILY PRN PRN Reason: Constipation Discontinued Gabapentin [Neurontin] 300 mg PO BID #6 cap Discharge Medication List Atorvastatin [Lipitor] 10 mg PO HS 10/29/18 [History] Magnesium Oxide 400 mg PO DAILY 07/07/21 [History] Metoprolol Tartrate [Lopressor] 50 mg PO DAILY 07/07/21 [History] Tamsulosin [Flomax] 0.4 mg PO BID #0 capsule 09/13/21 [Rx] L.acidoph,Paracasei, B.lactis [Probiotic] 1 cap PO DAILY 11/11/22 [History] Calcium Carbonate [Calcium] 600 mg PO BID 01/10/23 [History] Multivit-Mins/Iron/Folic/Lycop [Centrum Men's Tablet] 1 tab PO DAILY 01/10/23 [History] Medihoney 100% Topical Paste 1 applic TOPICAL DAILY 06/19/23 [History] oxyCODONE-APAP 7.5-325MG [Percocet 7.5-325 mg] 1 tab PO TID PRN 07/28/23 [History] Acetaminophen Tab [Tylenol] 325 mg PO TID PRN 10/10/23 [History] Apixaban [Eliquis] 2.5 mg PO BID 10/10/23 [History] polyethylene glycoL 3350 [Miralax] 17 gm PO Q2D 10/10/23 [History] Docusate [Colace] 100 mg PO DAILY PRN 10/30/23 [History] Cefepime [Maxipime] 2 gm IVPB Q12H #28 each 11/06/23 [Rx] DAPTOmycin [Cubicin] 350 mg IVPB Q24HR@1230 #14 each 11/06/23 [Rx] amLODIPine [Norvasc] 10 mg PO DAILY #30 tab 11/06/23 [Rx] Follow up Appointment(s)/Referral(s): None,Stated [Primary Care Provider] - 1-2 days Pablito Lynne MD [STAFF PHYSICIAN] - 1 Week Patient Instructions/Handouts: How to Prevent Pressure Injuries (DC), Urinary Tract Infection in Men (DC) Activity/Diet/Wound Care/Special Instructions: Return to [facility]. [facility] will transport, please call #[phone]. Discharge Disposition: OTHER INSTITUTION NOT DEFINED
--- NOTE | 2023-11-06 14:24 | P.PN ---
Subjective Progress Note Date: 11/06/23 Principal diagnosis: Reason for follow-up is UTI/pneumonia and a sacral pressure ulcer Patient is a 78-year-old male with a past medical history negative for CVA TIA patient is usually bedbound also with history of diabetes mellitus DVT hypertension osteomyelitis patient was brought into the ER for evaluation of altered mental status, patient noticed to have elevated white count low-grade fever positive UA and also with evidence of bibasilar infiltrate in addition to stage III sacral pressure ulcer. On today's evaluation that is 11/06/2023, the patient remains to be afebrile, patient is currently breathing comfortably on room air, the patient denies chest pain and no significant cough, patient denies abdominal pain, no nausea no vomiting or any diarrhea has been reported. Patient white count is down to 12.9, creatinine is 1.21 blood culture has been negative urine is Enterobacter Objective - Vital Signs Vital signs: Vital Signs Temp 98.6 F 11/06/23 07:26 Pulse 100 11/06/23 07:26 Resp 19 11/06/23 07:26 BP 198/78 11/06/23 07:26 Pulse Ox 97 11/06/23 07:26 FiO2 Intake & Output 11/05/23 11/06/23 11/06/23 18:59 06:59 18:59 Output Total 1000 550 Balance -1000 -550 Output: Urine 1000 550 Other: Voiding Method External Catheter External Catheter Diaper # Voids 1 - Exam GENERAL DESCRIPTION: An elderly male lying in bed in no distress RESPIRATORY SYSTEM: Unlabored breathing , decreased breath sounds at bases HEART: S1 S2 regular rate and rhythm , ABDOMEN: Soft , no tenderness EXTREMITIES: No edema feet - Labs CBC & Chem 7: 11/06/23 07:06 11/06/23 07:06 Labs: Abnormal Lab Results - Last 24 Hours (Table) 11/05/23 11/05/23 11/05/23 Range/Units 09:46 11:47 16:41 WBC (3.8-10.6) k/uL RBC (4.30-5.90) m/uL Hgb (13.0-17.5) gm/dL Hct (39.0-53.0) % MCV (80.0-100.0) fL MCH (25.0-35.0) pg MCHC (31.0-37.0) g/dL RDW (11.5-15.5) % Neutrophils # (Manual) 13.38 H (1.3-7.7) k/uL Lymphocytes # (Manual) 0.76 L (1.0-4.8) k/uL Monocytes # (Manual) 1.06 H (0-1.0) k/uL Potassium (3.5-5.1) mmol/L Chloride (98-107) mmol/L Carbon Dioxide (22-30) mmol/L Glucose (74-99) mg/dL POC Glucose (mg/dL) 131 H 139 H (70-110) mg/dL 11/05/23 11/06/23 11/06/23 Range/Units 21:19 06:01 07:06 WBC 12.9 H (3.8-10.6) k/uL RBC 4.15 L (4.30-5.90) m/uL Hgb 10.1 L (13.0-17.5) gm/dL Hct 33.0 L (39.0-53.0) % MCV 79.4 L (80.0-100.0) fL MCH 24.3 L (25.0-35.0) pg MCHC 30.6 L (31.0-37.0) g/dL RDW 16.8 H (11.5-15.5) % Neutrophils # (Manual) 10.97 H (1.3-7.7) k/uL Lymphocytes # (Manual) 0.90 L (1.0-4.8) k/uL Monocytes # (Manual) (0-1.0) k/uL Potassium (3.5-5.1) mmol/L Chloride (98-107) mmol/L Carbon Dioxide (22-30) mmol/L Glucose (74-99) mg/dL POC Glucose (mg/dL) 125 H 118 H (70-110) mg/dL 11/06/23 Range/Units 07:06 WBC (3.8-10.6) k/uL RBC (4.30-5.90) m/uL Hgb (13.0-17.5) gm/dL Hct (39.0-53.0) % MCV (80.0-100.0) fL MCH (25.0-35.0) pg MCHC (31.0-37.0) g/dL RDW (11.5-15.5) % Neutrophils # (Manual) (1.3-7.7) k/uL Lymphocytes # (Manual) (1.0-4.8) k/uL Monocytes # (Manual) (0-1.0) k/uL Potassium 3.4 L (3.5-5.1) mmol/L Chloride 110 H (98-107) mmol/L Carbon Dioxide 18 L (22-30) mmol/L Glucose 127 H (74-99) mg/dL POC Glucose (mg/dL) (70-110) mg/dL Assessment and Plan (1) Pneumonia Current Visit: Yes Status: Acute Code(s): J18.9 - PNEUMONIA, UNSPECIFIED ORGANISM SNOMED Code(s): 135710213 (2) UTI (urinary tract infection) Current Visit: Yes Status: Acute Code(s): N39.0 - URINARY TRACT INFECTION, SITE NOT SPECIFIED SNOMED Code(s): 92930132 (3) Stage III pressure ulcer of sacral region Current Visit: No Status: Acute Code(s): L89.153 - PRESSURE ULCER OF SACRAL REGION, STAGE 3 SNOMED Code(s): 58067036594489 Plan: 1patient presented to hospital with weakness mental status changes which is likely multifactorial concern for possible CAP versus UTI however the patient also have a congested cough and noticed to have a bibasilar infiltrate possible component of pneumonia not entirely excluded 2-patient did have a stage III sacral pressure ulcer with some slough tissue but no significant surrounding redness or foul-smelling drainage to be suspicious for wound infection 3-patient urine is grew Enterobacter that is resistant pathogen though sensitive to cefepime 4-local wound care to the sacral wound to continue per the wound care team and keep the area of the pressure 5-patient did have improvement in his white count with addition of daptomycin continue with cefepime daptomycin x 2 weeks on discharge treating both the UTI as well as infected wound to the sacral area with possible MRSA infection Dictation was produced using [employer] software. please excuse any gramma tical, word or spelling errors. Time with Patient: Less than 30
--- NOTE | 2023-11-06 14:24 | P.PN ---
Subjective Progress Note Date: 11/05/23 Principal diagnosis: Reason for follow-up is UTI/pneumonia and a sacral pressure ulcer Patient is a 78-year-old male with a past medical history negative for CVA TIA patient is usually bedbound also with history of diabetes mellitus DVT hypertension osteomyelitis patient was brought into the ER for evaluation of altered mental status, patient noticed to have elevated white count low-grade fever positive UA and also with evidence of bibasilar infiltrate in addition to stage III sacral pressure ulcer. On today's evaluation that is 11/05/2023, the patient is afebrile, patient is on room air, the patient denies chest pain shortness of breath or cough, patient denies nausea no vomiting no abdominal pain and no diarrhea has been reported. Patient white count is up to 15.2, creatinine has been normal blood culture negative. Objective - Vital Signs Vital signs: Vital Signs Temp 99.7 F H 11/05/23 07:30 Pulse 101 H 11/05/23 07:30 Resp 19 11/05/23 07:30 BP 182/86 11/05/23 07:30 Pulse Ox 95 11/05/23 07:30 FiO2 Intake & Output 11/04/23 11/05/23 11/05/23 18:59 06:59 18:59 Output Total 1000 550 Balance -1000 -550 Weight 81.647 kg Output: Urine 1000 550 Other: Voiding Method External Catheter External Catheter External Catheter - Exam GENERAL DESCRIPTION: An elderly male lying in bed in no distress RESPIRATORY SYSTEM: Unlabored breathing , decreased breath sounds at bases HEART: S1 S2 regular rate and rhythm , ABDOMEN: Soft , no tenderness EXTREMITIES: No edema feet - Labs CBC & Chem 7: 11/06/23 07:06 11/06/23 07:06 Labs: Abnormal Lab Results - Last 24 Hours (Table) 11/04/23 11/04/23 11/04/23 Range/Units 11:43 17:23 20:57 POC Glucose (mg/dL) 145 H 135 H 131 H (70-110) mg/dL 11/05/23 Range/Units 05:39 POC Glucose (mg/dL) 121 H (70-110) mg/dL Microbiology - Last 24 Hours (Table) 10/30/23 20:25 Blood Culture - Final Blood 10/30/23 20:40 Blood Culture - Final Blood Assessment and Plan (1) Pneumonia Current Visit: Yes Status: Acute Code(s): J18.9 - PNEUMONIA, UNSPECIFIED ORGANISM SNOMED Code(s): 193946492 (2) UTI (urinary tract infection) Current Visit: Yes Status: Acute Code(s): N39.0 - URINARY TRACT INFECTION, SITE NOT SPECIFIED SNOMED Code(s): 51226043 (3) Stage III pressure ulcer of sacral region Current Visit: No Status: Acute Code(s): L89.153 - PRESSURE ULCER OF SACRAL REGION, STAGE 3 SNOMED Code(s): 48375313313025 Plan: 1patient presented to hospital with weakness mental status changes which is likely multifactorial concern for possible CAP versus UTI however the patient also have a congested cough and noticed to have a bibasilar infiltrate possible component of pneumonia not entirely excluded 2-patient did have a stage III sacral pressure ulcer with some slough tissue but no significant surrounding redness or foul-smelling drainage to be suspicious for wound infection 3-patient urine is grew Enterobacter that is resistant pathogen though sensitive to cefepime 4-local wound care to the sacral wound to continue per the wound care team and keep the area of the pressure 5-patient did have worsening of his white count after discontinuation of his vancomycin patient did have history of MRSA infection in the past and did have wound to the sacral area possible responsible for this worsening of the white count daptomycin added as per discussion with the admitting team if the patient white count trend down tomorrow we will consider discharge on daptomycin and cefepime Dictation was produced using [employer] dictation software. please excuse any grammatical, word or spelling errors. Time with Patient: Less than 30
[2023-11-06 15:38] VITALS: BP 186/63; PULSE 98; RESP 20; TEMP 98.2
== END 2023-11-06 15:47 | disposition home or self-care (01) | DRG 193 ==
LOC: EC 19:41 → 4SSUR 23:20
PROVIDERS: ADMIT Student in an Organized Health Care Education/Training Program; ATTEND Student in an Organized Health Care Education/Training Program
PROC: 05H933Z Insertion of Infusion Device into Right Brachial Vein, Percutaneous Approach (ICD-10-PCS; principal; 2023-11-03 14:00)
PROC: 05HA33Z Insertion of Infusion Device into Left Brachial Vein, Percutaneous Approach (ICD-10-PCS; 2023-11-06 09:30)
DX: J15.9 Unspecified bacterial pneumonia (principal); G93.41 Metabolic encephalopathy; L89.153 Pressure ulcer of sacral region, stage 3; N39.0 Urinary tract infection, site not specified; I69.351 Hemiplegia and hemiparesis following cerebral infarction affecting right dominant side; N17.9 Acute kidney failure, unspecified; Z16.24 Resistance to multiple antibiotics; I82.501 Chronic embolism and thrombosis of unspecified deep veins of right lower extremity; E86.0 Dehydration; I45.10 Unspecified right bundle-branch block; Z96.641 Presence of right artificial hip joint; E11.65 Type 2 diabetes mellitus with hyperglycemia; I11.9 Hypertensive heart disease without heart failure; B96.89 Other specified bacterial agents as the cause of diseases classified elsewhere; E78.5 Hyperlipidemia, unspecified; Z11.52 Encounter for screening for COVID-19; Z99.3 Dependence on wheelchair; Z74.01 Bed confinement status; Z88.1 Allergy status to other antibiotic agents; Z88.8 Allergy status to other drugs, medicaments and biological substances; Z87.440 Personal history of urinary (tract) infections; Z86.14 Personal history of Methicillin resistant Staphylococcus aureus infection; Z79.899 Other long term (current) drug therapy; Z79.01 Long term (current) use of anticoagulants
CPT/HCPCS: 36410; 36415; 70450; 71046; 76770; 76937; 80048; 80053; 81001; 82565; 82607; 84145; 84443; 84484; 85025; 85610; 85652; 85730; 86140; 87040; 87077; 87086; 87186; 87636; 93005; 94760; 96361; 96365; 96375; 99285